=== PATIENT | female | born 1965 | race African-American/Black ===

== ENCOUNTER 2016-05-31 | Inpatient (IN) | payer OTHER ==
[~2016-05-31] VITALS: Ht 170.2 cm; Wt 78.0 kg
[~2016-05-31] MED LIST: ACET650S26 GT; ALBU2.5V13 IH; ASPI81TA2 GT; BACL10TA GT; DEXT15DR EACHEYE; IPRA0.2S9 IH; LACT-209 GT; LEVE100S GT; MIDO10TA GT; MULT1TAB11 GT; OMEG1600 GT; OMEP40CA37 GT; TOBR5DRO2 EACHEYE
--- NOTE | 2016-06-02 08:30 | NUR ---
Please see resident's previous account [id number] for all assessments and nurses notes. Originally admitted on 11/21/15.
[2016-06-02 10:00] VITALS: BP 108/60
--- NOTE | 2016-06-02 10:00 | NUR ---
Pt seen by Dr. Macario. Notified Dr. Macario that pt was started on KCl 40meq daily d/t K level on 05/29/16 was 3.2. Order obtained for repeat BMP today. Order noted and carried out.
--- NOTE | 2016-06-02 11:06 | NUR ---
Please see resident's previous account [id number] for Social Service assessments, evaluations and notes.
[2016-06-02 13:29] LABS: CALCIUM, SERUM 9.8 mg/dL (8.5-10.1); CREATININE 0.4 mg/dL (0.6-1.3); POTASSIUM 4.2 mmol/L (3.5-5.1)
[2016-06-02 20:26] VITALS: BP 98/55
[2016-06-03 07:43] VITALS: BP 90/52
--- NOTE | 2016-06-03 10:47 | NUR ---
Social Service Section of [facility] completed (2nd quarter). Resident is non communicative but opens her eyes but cannot track. Sister Judith and mother Sabrina are involved in her care. Sister visits frequently.
[2016-06-03 19:58] VITALS: BP 133/81
[2016-06-04 07:40] VITALS: BP 83/47
--- NOTE | 2016-06-04 20:12 | NUR ---
Pt seen by Coby Pabon with new order for BMP on Wednesday06/08/16,carried out.
[2016-06-04 20:35] VITALS: BP 101/67
[2016-06-05 07:44] VITALS: BP 142/58
--- NOTE | 2016-06-05 08:20 | NUR ---
Seen and examined by Dr. Nichole Dugan no new order given at this time.
[2016-06-05 19:59] VITALS: BP 100/68
[2016-06-06 07:49] VITALS: BP 123/63
[2016-06-06 19:52] VITALS: BP 104/60
[2016-06-07 07:41] VITALS: BP 106/56
[2016-06-07 20:02] VITALS: BP 108/68
[2016-06-08 07:33] VITALS: BP 115/87
[2016-06-08 07:33] LABS: CALCIUM, SERUM 9.4 mg/dL (8.5-10.1); CREATININE 0.5 mg/dL (0.6-1.3)
--- NOTE | 2016-06-08 09:45 | NUR ---
Seen by Dr. Dugan. Relayed BMP result to her. No new order.
[2016-06-08 20:39] VITALS: BP 101/62
[2016-06-09 07:45] VITALS: BP 108/53
--- NOTE | 2016-06-09 13:50 | NUR ---
Pt was noted with bilateral inguinal redness. Pt's sister at bedside and requested for Calamine lotion to be applied to the area. Received order from Dr. Macario to apply Calamine lotion.
--- NOTE | 2016-06-09 15:00 | NUR ---
MURIEL Sweeney reported that pt's sister placed a hand splint on the pt when she visited earlier. Left hand was noted with blanchable redness because of the splint. Will endorse to remind sister not to place the hand splint when she visits.
[2016-06-09 20:15] VITALS: BP 93/70
[2016-06-10 07:45] VITALS: BP_SYST 130; BP_DIAS 71; BP_DIAS 96
--- NOTE | 2016-06-10 08:00 | NUR ---
Notified Dr. Alfaro regarding elevated HR 140-152, BP 129/96, 97%, RR 18, P97, T 98.8, awaiting for MD to call back for orders.
--- NOTE | 2016-06-10 08:50 | NUR ---
Received new order to do EKG. RT notified of new order.
--- NOTE | 2016-06-10 09:32 | NUR ---
Reported result of EKG to Dr. Alfaro, sinus tachycardia otherwise normal ECG, rate 106.
--- NOTE | 2016-06-10 10:30 | NUR ---
Received an order from Dr. Alfaro to give 2 L of NS at 100 cc/hr. All orders noted and carried out. IV heplock inserted in the L FA G22, with good blood return. Patient tolerated well.
--- NOTE | 2016-06-10 14:00 | NUR ---
Seen and examined by Coby Pabon NP, no new order given. Notified that resident currently on IVF due to episode of tachycardia. Resident's sister visited earlier today notified of the new order and also the redness in the patient's L hand due to splint that sister applied yesterday. But according to her she noted the redness prior to applying the splint. Redness subsiding.
[2016-06-10 19:46] VITALS: BP 126/77
--- NOTE | 2016-06-11 06:34 | NUR ---
Pt still on IV hydration of NS 100cc/hr,no episodes of tachycardia.
[2016-06-11 07:30] VITALS: BP 109/59
[2016-06-11 19:53] VITALS: BP 138/80
[2016-06-12 07:39] VITALS: BP 98/57
[2016-06-12 19:54] VITALS: BP 128/95
[2016-06-13 08:00] VITALS: BP 101/58
[2016-06-13 19:59] VITALS: BP 103/66
[2016-06-14 08:10] VITALS: BP 96/58
[2016-06-14 19:55] VITALS: BP 105/76
[2016-06-15 08:01] VITALS: BP 100/64
[2016-06-15 19:43] VITALS: BP 99/65
[2016-06-16 08:06] VITALS: BP 97/57
[2016-06-16 19:37] VITALS: BP 120/67
[2016-06-17 07:48] VITALS: BP 121/84
[2016-06-17 20:08] VITALS: BP 118/57
[2016-06-18 07:38] VITALS: BP 106/69
--- NOTE | 2016-06-18 14:42 | NUR ---
Seen and examined by Coby Pabon NP, new order given to check BMP level on Wednesday06/22/16 to check K+. Orders noted and carried out.
[2016-06-18 20:00] VITALS: BP 113/74
[2016-06-19 07:57] VITALS: BP 89/46
--- NOTE | 2016-06-19 11:54 | NUR ---
Received a call from resident's sister Judith informing this nurse that she is not able to attend IDT meeting today due to the weather condition. She wanted to asked if there is something that the doctor can give like "antidiuretic" for patient's edema. This was mentioned with attending MD in the past but since B/P is on the low side, it is not advisable. It was suggested to Judith that we will call her on the phone and she ask Dr. Macario regarding her concern.
--- NOTE | 2016-06-19 14:10 | NUR ---
INTERDISCIPLINARY PLAN OF CARE CONFERENCE was held today. Sister Judith attended by telephone. New orders were reviewed. Sister Judith asked Dr. Macario whether there was any medication for resident's edema. He stated that it is not advisable as resident has low BP and a high heart rate that could worsen if medication is given. understood concerns. manager financial systems will also see what brace will be approved by the department.
[2016-06-19 19:41] VITALS: BP 103/70
[2016-06-20 07:57] VITALS: BP 115/74
[2016-06-20 20:00] VITALS: BP 100/62
[2016-06-21 07:47] VITALS: BP 111/75
[2016-06-21 19:54] VITALS: BP 104/72
[2016-06-22 07:40] VITALS: BP 94/64
[2016-06-22 07:44] LABS: CALCIUM, SERUM 10.1 mg/dL (8.5-10.1); CREATININE 0.4 mg/dL (0.6-1.3); POTASSIUM 4.2 mmol/L (3.5-5.1)
--- NOTE | 2016-06-22 09:50 | NUR ---
Seen and examined by Dr. Nichole Dugan, and made aware of BMP 4.2, currently on KCL 40 meq daily, with new order to decrease KCL to 20meq daily with repeat BMP on Wednesday06/29/16. All orders noted and carried out.
--- NOTE | 2016-06-22 10:33 | NUR ---
Seen and examined by Dr. Macario, NNO given.
[2016-06-22 19:45] VITALS: BP 99/65
[2016-06-23 07:55] VITALS: BP 105/67
--- NOTE | 2016-06-23 11:15 | NUR ---
Pt's bilateral groin redness noted with excoriation. Perineal area and bilateral underbreasts noted with redness. Received order to apply Z-guard cream to bilateral groin and perineal area, zinc oxide to bilateral underbreasts.
[2016-06-23 20:40] VITALS: BP 115/76
[2016-06-24 08:04] VITALS: BP 102/51
[2016-06-24 19:47] VITALS: BP 100/73
[2016-06-25 07:45] VITALS: BP 103/64
--- NOTE | 2016-06-25 15:45 | NUR ---
RT MONHTLY TRACH CHANGE DONE WITH NEW SHILEY #6 XLT DISTAL TRACH. TRACH CHANGE DONE WITH NO RESPIRATORY COMPLICATIONS NOTED. BILATERAL BREATH SOUNDS ON AUSCULTATION. RESPIRATIONS EVEN AND UNLABORED. NO REDNESS OR BLEEDING AT TRACH SITE. SUCTIONED SMALL AMOUNTS OF THICK, YELLOW SECRETIONS. TRACH SECURE AND AIRWAY PATENT. NO RESPIRATORY DISTRESS NOTED AT THIS TIME. AMBU BAG AND SPARE TRACH TUBE AT BEDSIDE. RN ROLL TABLE OPERATOR NOTIFIED AND AWARE. WILL CONTINUE TO MONITOR FOR ANY CHANGE OF CONDITION.
--- NOTE | 2016-06-25 16:03 | NUR ---
Seen and examined by Coby Pabon, BOTTLE MACHINE OPERATOR, NNO given.
[2016-06-25 19:58] VITALS: BP 129/78
[2016-06-26 07:44] VITALS: BP 120/72
--- NOTE | 2016-06-26 17:00 | NUR ---
Resident up in the wheelchair in the room for 2-3 hours, well tolerated. Transfer via Donal lift with 2 person assist. Addendum: 06/26/16 at 1801 by BRIDGETT MORIN RN Sister Tonya visited earlier today and gave her an update of most recent orders, lab result.
[2016-06-26 20:08] VITALS: BP 122/88
[2016-06-27 07:57] VITALS: BP 104/66
[2016-06-27 09:40] VITALS: BP 100/64
--- NOTE | 2016-06-27 18:30 | NUR ---
Left a message to Tonya regarding noted redness in the patient's R thumb which is consistent with the splint that was on her hand yesterday. MD notified and treatment initiated.
[2016-06-27 19:52] VITALS: BP 120/84
[2016-06-28 08:04] VITALS: BP 101/59
[2016-06-28 20:10] VITALS: BP 103/68
[2016-06-29 07:31] LABS: CALCIUM, SERUM 10.3 mg/dL (8.5-10.1); CREATININE 0.5 mg/dL (0.6-1.3); POTASSIUM 4.7 mmol/L (3.5-5.1)
[2016-06-29 07:41] VITALS: BP 99/56
--- NOTE | 2016-06-29 10:30 | NUR ---
Seen by Dr. Macario. He saw pt's Chem 7 result. K 4.7. He ordered to DC Potassium chloride and do Chem 7 again on 07/02/16.
[2016-06-29 19:53] VITALS: BP 121/60
--- NOTE | 2016-06-30 07:45 | NUR ---
RN OPENING RECEIVED PT STABLE NON VERBAL. FLACC 0 NO S/S DIFFICULTY BREATHING OR SOB. PT SETTINGS APPROPRIATE AND LEFT WITH CALL LIGHT FOR PATIENT TO HEAR, BED LOWERED AND LOCKED, RAILS UPX3 FOR SAFETY WITH BED ALARM ON. WILL MONITOR PRN
[2016-06-30 07:46] VITALS: BP_SYST 106; BP_SYST 82; BP_DIAS 46; BP_DIAS 72
--- NOTE | 2016-06-30 08:00 | NUR ---
RN NOTES PT BUTTOCKS FOLDS AND EL AREA ARE VERY RED AND EXCORIATED. WILL APPLY Z GUARD/WOUND CARE LIBERALLY PRN AND REPOSITION Q2H AND OFFLOAD. KEEPING SKIN CLEAN AND DRY
[2016-06-30 10:31] VITALS: BP 106/62
--- NOTE | 2016-06-30 11:00 | NUR ---
RN NOTES STOPPED FEEDING AT 11AM PER WRITTEN TIME ON FEEDING. WILL RESUME IN 4 HOURS
--- NOTE | 2016-06-30 15:00 | NUR ---
RN NOTES RESUMED FEEDING ORDERED, PT STABLE
--- NOTE | 2016-06-30 16:00 | NUR ---
Resident was seen by Dr. Gómez (floor tiling professional).
--- NOTE | 2016-06-30 19:11 | NUR ---
RN CLOSING PT STABLE, G TUBE CARE, TRACH CARE COMPLETED PRN. SUCTIONED PRN, TURNED Q2H, SKIN CARE PRN SOILING. NO CHANGES PATIENT STABLE. FEEDING RUNNING ORDERED AND VENT SETTINGS ORDERED
[2016-06-30 19:37] VITALS: BP 106/70
[2016-07-01 07:46] VITALS: BP 81/52
[2016-07-01 10:30] VITALS: BP 105/69
[2016-07-01 19:28] VITALS: BP 100/58
[2016-07-02 07:41] VITALS: BP 107/59
[2016-07-02 08:02] LABS: CREATININE 0.4 mg/dL (0.6-1.3); POTASSIUM 4.3 mmol/L (3.5-5.1)
[2016-07-02 22:18] VITALS: BP 98/64
[2016-07-03 07:56] VITALS: BP 110/71
[2016-07-03 20:43] VITALS: BP 129/85
[2016-07-04 08:13] VITALS: BP 92/60
[2016-07-04 19:54] VITALS: BP 102/55
[2016-07-04 21:45] VITALS: BP 99/59
[2016-07-05 08:11] VITALS: BP 87/45
[2016-07-05 20:00] VITALS: BP 120/70
--- NOTE | 2016-07-06 11:00 | NUR ---
Seen by Dr. Macario. Received order to do BMP on 07/13/16.
--- NOTE | 2016-07-06 18:52 | NUR ---
Dulcolax suppository given per rectum as ordered for constipation. result awaiting and endorsed to head custodian.
[2016-07-06 19:59] VITALS: BP 95/60
[2016-07-07 07:55] VITALS: BP 104/68
[2016-07-07 19:55] VITALS: BP 103/58
[2016-07-08 08:02] VITALS: BP 109/61
--- NOTE | 2016-07-08 12:29 | NUR ---
Resident's sister Tonya at bedside, she applied generic splints on both hands., it was mentioned to sister that it causes skin problems because it is not fit to her. She insisted that is it not tight at all. She also mentioned that resident is puffy. This nurse did not think that resident is puffy and reminded her that it was already discussed with attending MD her request for diuretics, but she doesn't think it is needed. During the last IDT she brought the same concern with Dr. Renaldo MD with same response, "no" to diuretics. She later on verbalized "yes, I understand". However, her L eye noted with slight redness, on artificial tears. Will notify MD if they want to add ATB eye drops.
--- NOTE | 2016-07-08 16:15 | NUR ---
Dr. Nichole Dugan seen and examined resident, reported L eye redness with new order for Gentamicin eye drops. MD also made aware that sister is saying that patient is puffy, Dr. Dugan responded " No, she is not puffy! You should have seen her when she was in the unit, she is OK". No other order except for the eye drops.
[2016-07-08 19:51] VITALS: BP 98/64
[2016-07-09 08:53] VITALS: BP 96/55
[2016-07-09 20:08] VITALS: BP 98/50
[2016-07-10 23:40] VITALS: BP 92/56
[2016-07-11 07:46] VITALS: BP 92/53
--- NOTE | 2016-07-11 16:20 | NUR ---
Resident noted with open skin in the L side of the neck. New treatment received. Resident's mother visited and made aware of the noted open skin in her left neck. Appreciated the care being provided " I know she is in good hands here". Order noted an carried out.
[2016-07-11 21:33] VITALS: BP 96/52
[2016-07-12 07:45] VITALS: BP 103/58
[2016-07-12 19:43] VITALS: BP 108/67
[2016-07-13 08:10] VITALS: BP 101/59
[2016-07-13 08:48] LABS: CALCIUM, SERUM 10.5 mg/dL (8.5-10.1); CREATININE 0.5 mg/dL (0.6-1.3); POTASSIUM 3.9 mmol/L (3.5-5.1)
[2016-07-13 19:47] VITALS: BP 101/60
--- NOTE | 2016-07-14 07:30 | NUR ---
RN NOTES PT IN BED, RESTING, NO SIGN OF PAIN, NOT IN DISTRESS, RESPIRATIONS EVEN AND NOT LABORED, TURNED AND REPOSITIONED FOR COMFORT.
[2016-07-14 07:45] VITALS: BP 140/76
--- NOTE | 2016-07-14 16:15 | NUR ---
Pt was seen by Dr. Garzon for routine podiatry consult. He trimmed pt's toenails. Pt tolerated well.
--- NOTE | 2016-07-14 17:17 | NUR ---
Received order from Dr. Garzon to apply triple antibiotic ointment on the superficial cut on the pt's left foot 2nd toe and on the left foot medial malleolus.
--- NOTE | 2016-07-14 17:46 | NUR ---
RN NOTES PT IN BED, ASLEEP, EASY TO AROUSE, NO SIGN OF PAIN OR DISTRESS, PM CARE RENDERED, PM MEDS GIVEN ORDERED, TURNED AND REPOSITIONED Q2 HRS, TOLERATING GT FEEDING WELL, KEPT BOTH HEELS OFFLOADED, ALL NEEDS ATTENDED.
[2016-07-14 22:45] VITALS: BP 103/66
[2016-07-15 07:46] VITALS: BP 118/67
[2016-07-15 19:56] VITALS: BP 98/59
[2016-07-16 07:42] VITALS: BP 95/63
--- NOTE | 2016-07-16 16:10 | NUR ---
Seen and examined by Coby Pabon NP no new order given. Seen the photo of bilateral heel with brownish color consistent with the shape of the ankle splint that family is putting on the patient. Sister commented "we will not put the splints for now". Informed her that if the splints is not fitting it will cause more damage than benefit . She verbalized understanding. She is very happy though with the UE splints being applied by RNA which therapist ordered especially for the patient.
[2016-07-16 19:36] VITALS: BP 95/60
[2016-07-17 07:28] VITALS: BP 94/43
[2016-07-17 19:54] VITALS: BP 101/72
[2016-07-18 07:50] VITALS: BP 103/62
[2016-07-18 19:58] VITALS: BP 100/56
[2016-07-19 07:55] VITALS: BP 100/59
[2016-07-19 19:38] VITALS: BP 88/55
[2016-07-20 08:13] VITALS: BP 90/57
--- NOTE | 2016-07-20 18:25 | NUR ---
Seen by STENOCAPTIONER Coby Pabon. Notified her that Gentamicin eye drops has been completed but pt still has some redness in the left eye. She said to just continue lubricating the eye. No new order.
[2016-07-20 19:43] VITALS: BP 98/62
[2016-07-21 07:35] VITALS: BP 103/59
--- NOTE | 2016-07-21 09:55 | NUR ---
Seen by Dr Macario with no new order.
--- NOTE | 2016-07-21 10:00 | NUR ---
Dr Macario seen pt bilateral lower extremities redness with order Cleanse with NS,pat dry,apply Hydrocortisone 1% Q shift x 14 days then re-eval order noted and carried out.Resident and mother Sabrina made aware.
[2016-07-21 19:59] VITALS: BP 99/68
[2016-07-22 07:39] VITALS: BP 101/52
--- NOTE | 2016-07-22 09:22 | NUR ---
Seen and examined by Dr Nichole Dugan, information technology consultant no new order given. She stated that her eyes looks much better although still with some redness.
[2016-07-22 20:30] VITALS: BP 101/60
[2016-07-23 07:44] VITALS: BP 104/60
--- NOTE | 2016-07-23 13:30 | NUR ---
Seen by Coby Pabon NP with no new order.
[2016-07-23 19:47] VITALS: BP 105/53
[2016-07-24 07:56] VITALS: BP 100/58
--- NOTE | 2016-07-24 13:47 | NUR ---
IDT meeting held, sister Tonya unable to attend. Reviewed medications, treatments and labs with new order to do repeat BMP on Wednesday to check K+ level. All orders noted and carried out.
[2016-07-24 19:41] VITALS: BP 113/72
[2016-07-25 07:58] VITALS: BP 99/58
[2016-07-25 19:47] VITALS: BP 107/71
[2016-07-26 08:12] VITALS: BP 98/58
[2016-07-26 20:09] VITALS: BP 95/57
[2016-07-27 07:41] LABS: CALCIUM, SERUM 10.5 mg/dL (8.5-10.1); CREATININE 0.4 mg/dL (0.6-1.3); POTASSIUM 4.2 mmol/L (3.5-5.1)
[2016-07-27 07:42] VITALS: BP 85/49
--- NOTE | 2016-07-27 10:11 | NUR ---
BMP result seen by Dr. Dugan. No new order.
[2016-07-27 19:56] VITALS: BP 109/70
[2016-07-28 08:03] VITALS: BP 106/59
--- NOTE | 2016-07-28 18:41 | NUR ---
Novasource Formula not hanged at this time @1833. Clicked by mistake intended for another pt.
[2016-07-28 20:05] VITALS: BP 105/68
[2016-07-29 09:04] VITALS: BP 106/67
--- NOTE | 2016-07-29 17:30 | NUR ---
Seen by Coby Pabon NP with no new order.
[2016-07-29 19:48] VITALS: BP 111/55
[2016-07-30 07:38] VITALS: BP 102/72
[2016-07-30 19:54] VITALS: BP 101/61
[2016-07-31 08:24] VITALS: BP 109/66
[2016-07-31 19:57] VITALS: BP 101/67
[2016-08-01 08:00] VITALS: BP 96/58
[2016-08-01 20:01] VITALS: BP 100/62
[2016-08-02 10:19] VITALS: BP 107/62
[2016-08-02 19:57] VITALS: BP 99/67
[2016-08-03 07:15] LABS: BASOPHILS % (AUTO) 0.4 % (0.0-2.0); EOSINOPHILS # (AUTO) 0.1 /CMM (0.0-0.7); EOSINOPHILS % (AUTO) 1.4 % (0.0-6.0); HEMATOCRIT 34 % (33-45); LYMPHOCYTES # (AUTO) 1.9 /CMM (0.8-4.8); LYMPHOCYTES % (AUTO) 41.8 % (20.0-44.0); MEAN CORPUSCULAR HEMOGLOBIN 27 PG (26.0-33.0); MEAN CORPUSCULAR HGB CONC 32 g/dl (31.0-36.0); MEAN CORPUSCULAR VOLUME 84 fL (82-100); MONOCYTES # (AUTO) 0.5 /CMM (0.1-1.30); MONOCYTES % (AUTO) 9.9 % (2.0-12.0); NEUTROPHILS # (AUTO) 2.1 /CMM (1.8-8.9); NEUTROPHILS % (AUTO) 46.5 % (43.0-81.0); RDW COEFFICIENT OF VARIATION 16.5 (11.5-15.0); RED BLOOD CELL COUNT(AUTO) 4.09 MIL/uL (4.0-5.2); WHITE BLOOD COUNT (AUTO) 4.6 K/uL (4.3-11.0)
[2016-08-03 07:26] LABS: ALBUMIN 2.8 g/dL (3.4-5.0); BILIRUBIN,TOTAL 0.2 mg/dL (0.2-1.0); CALCIUM, SERUM 10.4 mg/dL (8.5-10.1); CREATININE 0.4 mg/dL (0.6-1.3); PHOSPHORUS 3.2 mg/dL (2.5-4.9); POTASSIUM 4.2 mmol/L (3.5-5.1); TOTAL PROTEIN, SERUM 8.4 g/dL (6.4-8.2)
[2016-08-03 08:00] VITALS: BP 98/54
[2016-08-03 09:21] LABS: EOSINOPHILS % (MANUAL) 1 % (0-4); LYMPHOCYTES % (MANUAL) 26 % (16-48); MONOCYTES % (MANUAL) 11 % (0-11.0); NEUTROPHILS % (MANUAL) 62 (42-76); PLATELET COUNT (AUTO) 129 /CMM (150-450)
--- NOTE | 2016-08-03 18:15 | NUR ---
Seen by NIKI Ashford. She said Dr. Dugan asked her to see the pt's eye redness. NIKI Ashford looked at pt's left eye redness. No drainage or crust noted. NIKI Ashford said she will order something for it.
[2016-08-03 20:01] VITALS: BP 107/63
[2016-08-04 07:45] VITALS: BP 108/67
--- NOTE | 2016-08-04 09:30 | NUR ---
Seen by Dr Macario with no new order.
[2016-08-04 19:50] VITALS: BP 102/68
[2016-08-05 07:59] VITALS: BP 96/62
[2016-08-05 19:54] VITALS: BP 98/59
--- NOTE | 2016-08-06 18:03 | NUR ---
RN NOTES PT RESTING COMFORTABLY. NOT IN ANY DISTRESS. VENT DEPENDENT AND SETTINGS ORDERED. BREATHING EVEN AND UNLABORED. NO SIGN OF PAIN OR FACIAL GRIMACING. GTF ONGOING NOVASOURCE 30 ML/HR, TOLERATING WELL, O RESIDUAL. AM/PM CARE RENDERED AND PRN. PRESCRIBED WOUND TREATMENT DONE. TURNED AND REPOSITIONED. ALL DUE MEDS ADMINISTERED DURING THE SHIFT. ALL NEEDS MET. SAFETY MEASURES, SUCTION INTERMITTENTLY. WILL ENDORSE TO NEXT SHIFT FOR KATRIN.
[2016-08-06 19:51] VITALS: BP 99/61
[2016-08-07 07:48] VITALS: BP 94/60
--- NOTE | 2016-08-07 12:45 | NUR ---
Resident's sister visited she is asking if Ciloxan has a stop date, she is concern that it is not helping her eyes as it is still red. Inform her that it has only been 3 days and will notify MD on Wednesday of if she comes today or in the weekend if medication is ineffective.
[2016-08-07 19:50] VITALS: BP 97/60
[2016-08-08 07:28] VITALS: BP 96/68
[2016-08-08 21:23] VITALS: BP 92/59
[2016-08-09 08:00] VITALS: BP 113/53
[2016-08-09 20:00] VITALS: BP 98/58
[2016-08-10 08:03] VITALS: BP 79/46
[2016-08-10 09:14] VITALS: BP 98/70
[2016-08-10 20:04] VITALS: BP 98/61
[2016-08-11 08:10] VITALS: BP 92/52
[2016-08-11 19:37] VITALS: BP 96/61
--- NOTE | 2016-08-12 01:00 | NUR ---
RN NOTES Noted pt with right knee swelling, warm to touch. Pt does not appear to have pain at this time, facial grimacing noted when area of swelling is touched or moved. Noted with patchy reddened skin surrounding knee. Handled pt with care when providing care and repositioning. Will continue to monitor and endorse to following shift to notify MD and responsible constitution party.
[2016-08-12 07:33] VITALS: BP 93/56
--- NOTE | 2016-08-12 11:05 | NUR ---
notified Dr. Espinoza regarding right knee swollen. He gave an order for X-ray of Rt knee and he also said he will notify Dr. Alfaro.
--- NOTE | 2016-08-12 17:15 | NUR ---
X-ray was done and was found marked osteoarthtitic changes and marked impacted fracture deformity involving the distal femur. Relayed results to Dr. Dugan covering for Dr. Alfaro and she gave an order to do CTscan of right knee. NIKI Mckeon for ortho called and said Dr. Dugan left a message for consult and will be in the unit to see the patient. Sister Tonya aware and asked her if the patient had problem in the past. She said no there was no problem that she know but she did had left foot fracture and metal was placed on left foot long time before. Will Continue to monitor.
[2016-08-12 19:34] VITALS: BP 99/72
--- NOTE | 2016-08-13 06:30 | NUR ---
PT SLEPT GOOD DURING SHIFT WITH NO SIGNS AND SYMPTOMS OF PAIN NOTED, RIGHT KNEE STILL SWOLLEN. RENDERED PT'S CARE BY 2 NURSING STAFF AT ALL TIMES FOR SAFETY MEASURES, PRECAUTIONS TO R. KNEE STRICTLY OBSERVED, WITH MINIMAL MOVEMENT AND OFF PRESSURE TO AFFECTED KNEE AT ALL TIMES.
--- NOTE | 2016-08-13 06:53 | NUR ---
RIGHT KNEE IMMOBILIZER APPLIED ORDERED D/T FX.
[2016-08-13 07:49] VITALS: BP 83/46
--- NOTE | 2016-08-13 10:10 | NUR ---
Dr. Dugan saw the result of the CT scan of right knee. She said it is an old fracture. No new order.
[2016-08-13 20:36] VITALS: BP 99/59
--- NOTE | 2016-08-14 06:40 | NUR ---
Tolerated care, no s/sx of discomfort noted, q2hr circulation check done to r. knee with knee immobilizer. Prn Dulcolax to rectal given for constipation, effective x 1 bm, kept clean and dry. Safety measures observed at all times, 2 nursing staff at all times rendering pt's care, for safety precautions. All needs attended.
[2016-08-14 07:57] VITALS: BP 90/64
--- NOTE | 2016-08-14 10:57 | NUR ---
Obtain an order from Dr. Kvng Alfaro to have daily prune juice via GT for management of constipation. Orders noted and carried out.
[2016-08-14 21:35] VITALS: BP 97/56
[2016-08-15 07:49] VITALS: BP 108/66
--- NOTE | 2016-08-15 16:09 | NUR ---
Notified NIKI Ashford ID of the R and L eye culture result which is + for MRSA. She stated that Bonnie will be in to give order. Contact isolation observed.
--- NOTE | 2016-08-15 16:25 | NUR ---
Notified resident's sister Judith regarding positive culture MRSA of both eyes. Inform her that she will be on isolation. She was made aware of the order given by Dr. Alfaro regarding prune juice daily. At this time awaiting for MD to give treatment order. Family appreciated the call.
--- NOTE | 2016-08-15 19:00 | NUR ---
Spoke with [facility] pharmacist informing us that they are not sure whether Bacitracin will be covered by patient's insurance or not. Informed [facility] pharmacy and will notify this nurse if they can send the medication. Endorsed to incoming shift.
[2016-08-15 21:36] VITALS: BP 96/57
[2016-08-16 08:07] VITALS: BP 101/60
--- NOTE | 2016-08-16 17:58 | NUR ---
Seen by LORRAINE Jama with order for ophthalmology consult d/t left eye redness. Addendum: 08/16/16 at [address]ER RN SKEET OPERATOR placed new order for Polysporin eye oint. DC Bacitracin. Order noted and carried out. Pt's sister Judith notified.
[2016-08-16 20:21] VITALS: BP 100/66
[2016-08-17 07:53] VITALS: BP 111/61
--- NOTE | 2016-08-17 18:54 | NUR ---
Received order to DC artificial tears ophthalmic drops QID and Refresh lacrilube ointment q HS since pt is on antibiotic eye drops.
[2016-08-17 20:00] VITALS: BP 90/53
[2016-08-18 07:43] VITALS: BP 100/56
--- NOTE | 2016-08-18 10:00 | NUR ---
Notified social worker clinical Michelle that pt has an order for ophthalmology consult due to MRSA in the eyes.
--- NOTE | 2016-08-18 10:36 | NUR ---
Informed by charge nurse that resident is in need of an ophthalmology consult due to left eye redness. Spoke to Cece at the office of Dr. Hayden ([id number] [place] [address] . She stated that she has to check with Dr. Hayden to see if she can come to the hospital in order to do the consult but is most likely available on Wednesday. Faxed referral to her office. LIZANDRO will follow up. Addendum: 08/18/16 at 1135 by TOO BONE Cece called back and stated that Dr. Hayden is 40 miles away and cannot come. Clarified with Cece if Dr. Hayden is able to come at any other time. Cece stated that she was not sure and will give SW number to Dr. Hayden so that she can call her. Cece also stated that Dr. Mayes (who is also a part of the practice and has privileges at the [facility]) recently got shoulder surgery and is not currently working. LIZANDRO will await call from Dr. Hayden.
--- NOTE | 2016-08-18 11:40 | NUR ---
Called Maida at medical staffing (ext [phone]) and informed her that both ophthalmologists most likely cannot come to see resident for consult. Asked for alternative options and notified her that for [facility], Dr. Gates is the co founder & ceo that does the consults. She said SW can either send out patient to an appt outside of the hospital or transfer to [facility] to do the consult. Informed deputy director of nursing Nida Lamas and emailed YOJANA Mccullough regarding issue. SW will follow up.
[2016-08-18 19:36] VITALS: BP 89/64
[2016-08-19 07:51] VITALS: BP 81/51
--- NOTE | 2016-08-19 08:15 | NUR ---
SW spoke to CNO regarding purifying plant operator consultation. Informed him of the issue (no contracted doctor's can come and see patient). CNO reviewed the resident's chart with subacute charge nurse and resident already being treated with medication. CNO to follow up with infection control and will inform charge nurse if consultation is needed.
--- NOTE | 2016-08-19 13:20 | NUR ---
Notified LORRAINE Ashford regarding pharmacy recommendations that Polytrim is effective in treating MRSA of the eye than current treatment of Polysporin ointment. She agreed with pharmacy recommendations. She also ordered to cancel ophthalmology consult for now and will evaluate after therapy if ophthalmology consult is still needed. SSD notified. Orders noted and carried out.
--- NOTE | 2016-08-19 18:58 | NUR ---
Makeda, ID seen resident stated that Vancomycin eye drop is better for MRSA however it is not available in [facility] formulary. Inquired from [facility] pharmacy and Vanco eye drop is available. Makeda, changed eye drop order to Vancomycin eye drops. Faxed order to pharmacy and will notify staff if covered by patient's insurance or not. Endorsed.
[2016-08-19 19:34] VITALS: BP 94/69
--- NOTE | 2016-08-20 06:29 | NUR ---
Pt ordered for Vancomycin eye drops d/c not covered by insurance per Yan Zhao.Polytrim eyes drops was covered by insurance and will start today for MRSA both eyes.
[2016-08-20 07:49] VITALS: BP 99/52
[2016-08-20 21:29] VITALS: BP 98/57
--- NOTE | 2016-08-21 10:59 | NUR ---
WOUND CARE CONSULT: PT SEEN FOR LEFT FLANK SKIN FOLD EXCORIATION. RECOMMENDATIONS MADE FOR Z GUARD TO BE APPLIED TO AREA EVERY SHIFT. DISCUSSED WITH NURSING STAFF. ALL SKIN PROTECTION MEASURES IN PLACE. WILL SEE PRN. IN AGREEMENT WITH PLAN OF CARE.
--- NOTE | 2016-08-21 13:43 | NUR ---
Noted with skin discoloration in the L arm that is consistent with the hand splints. Will continue to monitor. MD Macario aware NNO given.
--- NOTE | 2016-08-21 16:04 | NUR ---
INTERDISCIPLINARY PLAN OF CARE CONFERENCE was held today. Sister Judith attended in person. New orders were reviewed. Sister Judith stated to Dr. Macario that she was interested in seeing if water pill can be given to resident for her fluid retention. Dr. Macario stated that it is not advisable. Judith was okay with Dr. Macario's response. Sister would also like resident to be up in the wheelchair and feels that it is not being used. manager video to follow up with staff to make sure resident is being placed into the wheelchair. Judith also addressed her concerns with OT and the brace that is being used. OT went to the room with resident's sister in order to address her concerns and clinical nursing professor to follow up. No new orders were given by Dr. Macario.
[2016-08-21 20:18] VITALS: BP 96/61
[2016-08-22] VITALS (8 sets, daily range): BP systolic 84–101; BP diastolic 40–61
[2016-08-23 00:40] VITALS: BP 94/52
[2016-08-23 00:41] VITALS: BP 94/52
[2016-08-23 06:58] VITALS: BP 89/53
[2016-08-23 07:40] VITALS: BP 90/55
[2016-08-23 20:00] VITALS: BP 139/56
[2016-08-24 07:32] VITALS: BP 126/53
--- NOTE | 2016-08-24 19:26 | NUR ---
Seen by NIKI Ashford. She looked at pt's eyes. Eyes are still red. No new order.
[2016-08-24 19:36] VITALS: BP 101/61
[2016-08-25 08:03] VITALS: BP 90/52
--- NOTE | 2016-08-25 09:00 | NUR ---
Seen and examined by Dr Macario with no new order.
[2016-08-25 19:59] VITALS: BP 96/60
[2016-08-26 07:41] VITALS: BP 125/70
[2016-08-26 21:19] VITALS: BP 91/55
[2016-08-27 06:58] LABS: BASOPHILS % (AUTO) 0.7 % (0.0-2.0); EOSINOPHILS # (AUTO) 0.2 /CMM (0.0-0.7); EOSINOPHILS % (AUTO) 3.4 % (0.0-6.0); HEMATOCRIT 30 % (33-45); HEMOGLOBIN 9.7 g/dL (11.5-14.8); LYMPHOCYTES # (AUTO) 1.6 /CMM (0.8-4.8); LYMPHOCYTES % (AUTO) 27.7 % (20.0-44.0); MEAN CORPUSCULAR HEMOGLOBIN 27 PG (26.0-33.0); MEAN CORPUSCULAR HGB CONC 33 g/dl (31.0-36.0); MEAN CORPUSCULAR VOLUME 83 fL (82-100); MONOCYTES # (AUTO) 0.3 /CMM (0.1-1.30); MONOCYTES % (AUTO) 5.2 % (2.0-12.0); NEUTROPHILS # (AUTO) 3.5 /CMM (1.8-8.9); PLATELET COUNT (AUTO) 180 /CMM (150-450); RDW COEFFICIENT OF VARIATION 17.6 (11.5-15.0); RED BLOOD CELL COUNT(AUTO) 3.55 MIL/uL (4.0-5.2); WHITE BLOOD COUNT (AUTO) 5.6 K/uL (4.3-11.0)
[2016-08-27 07:32] VITALS: BP 104/76
[2016-08-27 08:40] LABS: ALBUMIN 2.5 g/dL (3.4-5.0); BILIRUBIN,TOTAL 0.1 mg/dL (0.2-1.0); CALCIUM, SERUM 10.5 mg/dL (8.5-10.1); CREATININE 0.4 mg/dL (0.6-1.3); PHOSPHORUS 4.2 mg/dL (2.5-4.9); TOTAL PROTEIN, SERUM 8.7 g/dL (6.4-8.2)
[2016-08-27 20:01] VITALS: BP 101/63
--- NOTE | 2016-08-28 05:14 | NUR ---
Pt had episodes of emesis x 2 formula like yellowish in color,check residual none,abdomen slightly distended,vented to release gas.Zofran given via GT as ordered. No BM for 2 days,PRN Dulcolax suppository given effective with medium amount of soft BM.Will continue to monitor.
[2016-08-28 07:39] VITALS: BP 122/60
[2016-08-28 19:57] VITALS: BP 100/61
[2016-08-29 08:00] VITALS: BP 101/55
--- NOTE | 2016-08-29 10:58 | NUR ---
Notified NIKI Ashford regarding stop date of Polytrim eye drops. She stated that she will reassess patient's eye this afternoon.
[2016-08-29 20:11] VITALS: BP 106/50
--- NOTE | 2016-08-29 20:40 | NUR ---
Primary nurse notice that patient's left knee is slightly swelling and more movable that before. According to the primary nurse patient's knee are usually hard and very stiff. called Dr. Alfaro telephone station repairer. Got and order from Dr. Mckenzie for xray of left knee.
[2016-08-30 08:00] VITALS: BP 104/53
--- NOTE | 2016-08-30 12:19 | NUR ---
Received x-ray of the left knee result called Dr. Angelina Calderon's office spoke to Ana she stated she will page but Dr. Sanchez is the on-call today. Awaiting call back from . Dr. Sanchez called back and relayed x-ray of the left knee result with new order of CT scan today order noted and carried out. Judith Nagel made aware of pt's condition and notified of the new order. RP was very appreciative of the call.
--- NOTE | 2016-08-30 15:49 | NUR ---
Relayed CT scan of the left knee spoke to Dr. Edwards on-call for Dr. Alfaro with order for ortho consult. FLACA Wong made aware.
[2016-08-30 19:45] VITALS: BP 96/63
[2016-08-31 08:00] VITALS: BP 109/66
[2016-08-31 08:07] LABS: *SPE A/G RATIO 0.7 (0.7-1.7); *SPE ALBUMIN 3.1 g/dL (2.9-4.4); *SPE ALPHA-1-GLOBULIN 0.6 g/dL (0.0-0.4); *SPE BETA GLOBULIN 1.4 g/dL (0.7-1.3); *SPE GLOBULIN, TOTAL 4.6 g/dL (2.2-3.9); *SPE M-SPIKE 0.2 g/dL (Not Observed); *SPE PROTEIN TOTAL 7.7 g/dL (6.0-8.5); *SPEGAMMA GLOBULIN 1.6 g/dL (0.4-1.8)
--- NOTE | 2016-08-31 10:00 | NUR ---
Dr. Dugan came to see pt. Showed her the results of the left knee x-ray and left knee CT scan. She said to have ortho see pt.
--- NOTE | 2016-08-31 12:14 | NUR ---
Called and left message to voice of EMILY Gustafson to call back subacute regarding ortho consult.
--- NOTE | 2016-08-31 13:50 | NUR ---
Dang DIAZ called back and will see patient this afternoon.
--- NOTE | 2016-08-31 14:15 | NUR ---
Dang DIAZ came and assessed patients' both lower extremities, she ordered right knee immobilizer for 3 more weeks. She is aware of x ray results and CT scan of left knee, according to her left knee fracture is chronic, no new orders at this time.
[2016-08-31 19:46] VITALS: BP 85/58
[2016-09-01 08:00] VITALS: BP 100/59
--- NOTE | 2016-09-01 10:05 | NUR ---
Seen and examined by Dr Macario with no new order
[2016-09-01 20:25] VITALS: BP 99/63
[2016-09-02 08:28] VITALS: BP 84/49
[2016-09-02 09:30] VITALS: BP 102/74
--- NOTE | 2016-09-02 13:53 | NUR ---
Resident's sister (Judith) visiting, notified her ortho saw resident on 08/31/16 with the following recommendations; to keep the right knee immobilizer for 2-3 weeks, no orthopaedic surgical intervention recommended at this time. No weight bearing on bilateral lower extremities but OK to do passive ROM. Appreciated the update given.
[2016-09-02 21:01] VITALS: BP 104/55
[2016-09-03 07:36] VITALS: BP 128/65
--- NOTE | 2016-09-03 09:52 | NUR ---
Called EMILY Valles's office to ask if Donal lift may be used when transferring pt to wheelchair. EMILY Valles saw pt on 08/31/16 and said it is fine to have pt sit up in wheelchair. Left message with Jamil. Addendum: 09/11/16 at 1125 by MIGUELANGEL REEDER RN Late entry: EMILY Valles said Donal lift may be used for transfers.
[2016-09-03 20:00] VITALS: BP 120/64
[2016-09-04 11:58] VITALS: BP 98/66
[2016-09-04 12:00] VITALS: BP 101/65
[2016-09-04 20:10] VITALS: BP 100/65
[2016-09-05 07:25] VITALS: BP 98/56
[2016-09-05 19:56] VITALS: BP 101/63
[2016-09-06 07:25] VITALS: BP 108/55
[2016-09-06 20:00] VITALS: BP_SYST 114; BP_SYST 90; BP_DIAS 59; BP_DIAS 60
--- NOTE | 2016-09-07 14:39 | NUR ---
09/07/16- for 1000: B/P rechecked as a follow-up, result B/P - 93/56, P - 64 post trendelenberg position. Then was placed on recliner chair per sister's request, arousable, non-verbal, confused, disoriented x 4. Resp even and unlabored, suctioned x 2 with copious thick secretions. Remains on O2 via trach mask per MD's order. Able to tolerate being up on recliner chair with his right lower extremity brace. No acute distress noted at this time.
--- NOTE | 2016-09-07 16:31 | NUR ---
Obtained specimen from both eyes C and S for MRSA clearance. Specimen sent to lab.
[2016-09-07 19:50] VITALS: BP 81/58
--- NOTE | 2016-09-08 11:40 | NUR ---
@ 1000 Rechecked B/P -97/55, P-74 post trendelenberg position. Am care provided by ANALYTICAL SCIENCES DIRECTOR, no acute distress noted.
[2016-09-08 12:38] VITALS: BP 87/58
[2016-09-08 19:39] VITALS: BP 96/60
[2016-09-09 07:39] VITALS: BP 131/47
[2016-09-09 20:45] VITALS: BP 104/55
[2016-09-10 07:35] VITALS: BP 95/56
--- NOTE | 2016-09-10 12:26 | NUR ---
Notified Makeda PRINCE that eye culture #1 showed slight growth of MRSA. No redness, no discharge noted on both eyes at this time. Order obtained to continue Polytrim eye gtts. Order noted and carried out. Pt's sister Judith notified. Sister upset that pt will still be on isolation and requesting to move rooms. Explained isolation protocol to sister but sister wants to talk to primary MD. Gave MD's office number to Judith per her request.
[2016-09-10 20:24] VITALS: BP 107/75
[2016-09-11 08:00] VITALS: BP 109/56
--- NOTE | 2016-09-11 18:53 | NUR ---
Followed up Polytrim eye drops from [facility] pharmacy since remaining eye drops was consumed today. According to Shabbir ([facility]), Polytrim is not available due to a back order in the market and there is no release date for it yet. Received a recommendation to change to Maxitrol eye drops. Notified NIKI Ashford and received order to give Maxitrol eye drops 1 drop to each eye q 4 hours for MRSA in both eyes.
[2016-09-11 19:35] VITALS: BP 118/57
[2016-09-12 08:18] VITALS: BP 92/62
--- NOTE | 2016-09-12 15:09 | NUR ---
Notified patient's sister Judith of new order for Maxitrol eye gtts. Judith verbalized understaning, appreciative of call.
--- NOTE | 2016-09-12 17:27 | NUR ---
Pt noted with open skin on right Achilles area. MD notified and treatment order obtained, noted and carried out. Pt's sister Judith notified.
[2016-09-12 19:20] VITALS: BP 95/55
[2016-09-12 20:07] VITALS: BP 95/55
[2016-09-13 07:43] VITALS: BP 95/53
[2016-09-13 19:58] VITALS: BP 114/74
[2016-09-14 11:07] LABS: BASOPHILS % (AUTO) 0.7 % (0.0-2.0); EOSINOPHILS # (AUTO) 0.1 /CMM (0.0-0.7); EOSINOPHILS % (AUTO) 1.8 % (0.0-6.0); HEMATOCRIT 28 % (33-45); LYMPHOCYTES # (AUTO) 1.8 /CMM (0.8-4.8); LYMPHOCYTES % (AUTO) 33.3 % (20.0-44.0); MEAN CORPUSCULAR HEMOGLOBIN 26 PG (26.0-33.0); MEAN CORPUSCULAR HGB CONC 32 g/dl (31.0-36.0); MEAN CORPUSCULAR VOLUME 83 fL (82-100); MONOCYTES # (AUTO) 0.3 /CMM (0.1-1.30); MONOCYTES % (AUTO) 5.9 % (2.0-12.0); NEUTROPHILS # (AUTO) 3.1 /CMM (1.8-8.9); NEUTROPHILS % (AUTO) 58.3 % (43.0-81.0); PLATELET COUNT (AUTO) 254 /CMM (150-450); RDW COEFFICIENT OF VARIATION 16.8 (11.5-15.0); RED BLOOD CELL COUNT(AUTO) 3.42 MIL/uL (4.0-5.2); WHITE BLOOD COUNT (AUTO) 5.3 K/uL (4.3-11.0)
[2016-09-14 11:37] LABS: LYMPHOCYTES % (MANUAL) 30 % (16-48); MONOCYTES % (MANUAL) 8 % (0-11.0); NEUTROPHILS % (MANUAL) 59 (42-76)
[2016-09-14 11:38] LABS: EOSINOPHILS % (MANUAL) 3 % (0-4)
[2016-09-14 12:09] LABS: CREATININE 0.5 mg/dL (0.6-1.3); MAGNESIUM 1.8 mg/dL (1.8-2.4); PHOSPHORUS 3.3 mg/dL (2.5-4.9); POTASSIUM 3.6 mmol/L (3.5-5.1)
[2016-09-14 20:01] VITALS: BP 103/61
[2016-09-15 08:18] VITALS: BP 88/54
[2016-09-15 19:40] VITALS: BP 98/55
[2016-09-16 08:02] VITALS: BP 87/42
[2016-09-16 19:34] VITALS: BP 98/60
[2016-09-17 07:26] VITALS: BP 124/79
--- NOTE | 2016-09-17 10:00 | NUR ---
Pt noted with left breastfold excoriation, left lower back fold excoriation and gluteal crease linear cut. MD notified and treatment initiated. Orders noted and carried out.
[2016-09-17 20:00] VITALS: BP 98/57
[2016-09-18 19:57] VITALS: BP 101/60
[2016-09-19 07:32] VITALS: BP 93/59
--- NOTE | 2016-09-19 16:42 | NUR ---
Notified sister that message was left to BURGLAR ALARM INSPECTOR Reena (ortho) yesterday that 3 weeks of application of R knee immobilizer is until 09/21. Endorsed to follow-up with BURGLAR ALARM INSPECTOR to reevaluate if R knee immobilizer is still needed.
[2016-09-19 19:59] VITALS: BP 103/59
[2016-09-20 07:56] VITALS: BP 103/53
[2016-09-20 19:45] VITALS: BP 99/74
[2016-09-21 06:52] LABS: BASOPHILS % (AUTO) 0.4 % (0.0-2.0); EOSINOPHILS # (AUTO) 0.2 /CMM (0.0-0.7); EOSINOPHILS % (AUTO) 3.1 % (0.0-6.0); HEMATOCRIT 29 % (33-45); HEMOGLOBIN 9.3 g/dL (11.5-14.8); LYMPHOCYTES # (AUTO) 2.1 /CMM (0.8-4.8); MEAN CORPUSCULAR HEMOGLOBIN 26 PG (26.0-33.0); MEAN CORPUSCULAR HGB CONC 32 g/dl (31.0-36.0); MEAN CORPUSCULAR VOLUME 83 fL (82-100); MONOCYTES # (AUTO) 0.5 /CMM (0.1-1.30); MONOCYTES % (AUTO) 8.6 % (2.0-12.0); NEUTROPHILS # (AUTO) 2.8 /CMM (1.8-8.9); NEUTROPHILS % (AUTO) 49.9 % (43.0-81.0); PLATELET COUNT (AUTO) 326 /CMM (150-450); RDW COEFFICIENT OF VARIATION 17.6 (11.5-15.0); RED BLOOD CELL COUNT(AUTO) 3.55 MIL/uL (4.0-5.2); WHITE BLOOD COUNT (AUTO) 5.6 K/uL (4.3-11.0)
[2016-09-21 07:05] LABS: POTASSIUM 3.9 mmol/L (3.5-5.1)
[2016-09-21 07:06] LABS: CALCIUM, SERUM 9.9 mg/dL (8.5-10.1); CREATININE 0.5 mg/dL (0.6-1.3); MAGNESIUM 2.1 mg/dL (1.8-2.4); PHOSPHORUS 3.2 mg/dL (2.5-4.9)
[2016-09-21 07:45] LABS: EOSINOPHILS % (MANUAL) 3 % (0-4); LYMPHOCYTES % (MANUAL) 31 % (16-48); MONOCYTES % (MANUAL) 6 % (0-11.0); NEUTROPHILS % (MANUAL) 60 (42-76)
[2016-09-21 08:22] VITALS: BP 99/54
--- NOTE | 2016-09-21 13:00 | NUR ---
Called and spoke to PA Shama regarding Right knee immobilizer, okay to continue to keep right knee immobilizer, rellease every 4 hours to check skin circulation and skin integrity. Sister came and made aware of new orders.
--- NOTE | 2016-09-21 15:24 | NUR ---
Left message for CONVERTIBLE SOFA BEDSPRING TESTER Stella (covering for CONVERTIBLE SOFA BEDSPRING TESTER Makeda) regarding duration of Maxitrol eye drops.
--- NOTE | 2016-09-21 17:00 | NUR ---
Stella PRINCE called back and will see patient tonight regarding maxitrol eye drops for MRSA both eyes.
[2016-09-21 19:49] VITALS: BP 98/72
[2016-09-22 08:15] VITALS: BP 96/58
--- NOTE | 2016-09-22 11:45 | NUR ---
Called pt's sister Judith and notified her that Maxitrol eye drops was DC'd, pt will start again on Polytrim eye drops and Bactrim DS for the MRSA eye infection. She said she will see pt today.
--- NOTE | 2016-09-22 13:30 | NUR ---
EMILY Sesay called back and informed him resident's sister, Judith, does not want to continue applying right knee immobilizer since it has been weeks already. EMILY explains it's just for comfort reason like when resident is moved but it's ok to stop it. With order okay to discontinue right knee immobilizer per sister request. Judith present at bedside and notified of new order. Right knee immobilizer removed. Resident appears comfortable without s/s of pain noted at this time.
[2016-09-22 19:15] VITALS: BP 102/60
[2016-09-23 07:58] VITALS: BP 109/54
[2016-09-23 20:00] VITALS: BP 99/68
[2016-09-24 07:51] VITALS: BP 102/64
--- NOTE | 2016-09-24 09:48 | NUR ---
Spoke to Makeda PRINCE regarding stop date of Bactrim DS for 7 days only order clarified noted and carried out.Resident responsible alliance party Judith made aware.
--- NOTE | 2016-09-24 15:00 | NUR ---
Seen by Coby aPbon SUSTAINABLE DESIGN COORDINATOR made aware of pt increased secretions per SUSTAINABLE DESIGN COORDINATOR she's always have secretions as long as she's not having fever.Pt no fever no sob no acute distress. Nurse Sane with no new order.
--- NOTE | 2016-09-24 15:30 | NUR ---
Seen by Dr Noel regarding pt left and right thumb fingernail discoloration per MD no treatment right now.
--- NOTE | 2016-09-24 16:00 | NUR ---
Seen by Dr Sanchez regarding left heel wound per MD no new order.
[2016-09-24 20:23] VITALS: BP 105/72
[2016-09-25 07:36] VITALS: BP 105/68
--- NOTE | 2016-09-25 09:09 | NUR ---
WOUND CARE CONSULT: PT SEEN FOR RT ACHILLES AREA STAGE II ULCER WHICH MEASURES 2.5CM X 2.5CM X 0.1CM AND IS PINK AND RED IN COLOR, SCANT PINK DRAINAGE, NO ODOR. RECOMMENDATIONS MADE FOR WOUND CARE INCLUDE HYDROGEL AND MEPILEX, SECURE WITH BURN NETTING. HEELS FLOATED AND AREA OFFLOADED. DISCUSSED WITH NURSING STAFF. MD IN AGREEMENT WITH PLAN OF CARE.
--- NOTE | 2016-09-25 14:10 | NUR ---
IDT meeting held, attended by Judith resident's sister. All new orders were reviewed and identified all skin problems and it's current treatment. Resident continue to be on isolation for MRSA of the eye with current treatment of Polytim eye drops, redness in the eye improving. R knee immobilizer has been discontinued per sister request. Family is pleased with the care.
[2016-09-25 19:43] VITALS: BP 104/59
[2016-09-26 07:31] VITALS: BP 98/58
--- NOTE | 2016-09-26 14:25 | NUR ---
Resident's sister Judith visited together with her children. The family observed isolation precaution due to isolation status.
[2016-09-26 19:28] VITALS: BP 121/66
--- NOTE | 2016-09-27 03:02 | NUR ---
Seen and examined by NIKI Mora with new order to complete dose of Bactrim and Polytrim for 10 days carried out.
[2016-09-27 08:07] VITALS: BP 96/58
[2016-09-27 19:30] VITALS: BP 95/68
[2016-09-28 07:56] VITALS: BP 91/54
[2016-09-28 19:43] VITALS: BP 112/67
[2016-09-29 07:54] VITALS: BP 90/50
--- NOTE | 2016-09-29 09:40 | NUR ---
Seen by Dr Macario with no new order.
--- NOTE | 2016-09-29 14:00 | NUR ---
Resident's sister wanted to speak to SW regarding her expectations for the room. She stated that she wants AUDIO ENGINEER supplies on top of the brown cabinet in resident's room. She stated that everytime she comes in, she feels that she has to be re-arranging things. SW had sister speak to current AUDIO ENGINEER and also informed charge nurse and nursing technician of Judith's concerns.
[2016-09-29 19:44] VITALS: BP 97/55
[2016-09-30 07:53] VITALS: BP 122/46
--- NOTE | 2016-09-30 17:47 | NUR ---
Seen and examined by Coby Pabon NP for Dr. Macario, dental appliance mechanic, NNO given.
[2016-09-30 20:20] VITALS: BP 104/65
[2016-10-01 07:48] VITALS: BP 86/57
[2016-10-01 21:06] VITALS: BP 96/69
[2016-10-02 07:38] VITALS: BP 99/52
--- NOTE | 2016-10-02 09:30 | NUR ---
Seen and examined by Dr. Nichole Dugan, made aware that Bactrim completed yesterday and last dose of Polytrim eye drops is today. Per IC we need to reculture both eyes 24 hours after ATB to clear for isolation. is agreement. Endorsed to obtain specimen in AM.
[2016-10-02 23:18] VITALS: BP 145/66
[2016-10-03 07:50] VITALS: BP 121/80
[2016-10-03 20:41] VITALS: BP 98/61
--- NOTE | 2016-10-04 01:07 | NUR ---
EQUIPMENT CHANGED. Addendum: 10/04/16 at 0107 by DAXA LAGUNA RT Amended: Links added.
[2016-10-04 08:18] VITALS: BP 103/65
[2016-10-04 19:16] VITALS: BP 109/76
[2016-10-05 08:00] VITALS: BP 115/73
[2016-10-05 19:50] VITALS: BP 118/70
[2016-10-06 08:00] VITALS: BP 103/67
--- NOTE | 2016-10-06 10:10 | NUR ---
Seen and examined by Dr Macario with no new order.
[2016-10-06 19:49] VITALS: BP 105/68
[2016-10-07 07:49] VITALS: BP 107/66
--- NOTE | 2016-10-07 12:30 | NUR ---
Left a message to NIKI Ashford, ID regarding positive MRSA result of the L eye. Awaiting for call back if she wants to treat.
--- NOTE | 2016-10-07 13:09 | NUR ---
Received an order from NIKI Ashford to continue Polytrim to L eye x 2 weeks for MRSA infection. Judith, sister visiting and made aware of the new order. She was given update of what is going on with her sister especially culture result and treatment.
[2016-10-07 20:00] VITALS: BP 91/56
[2016-10-08 07:22] VITALS: BP 105/66
--- NOTE | 2016-10-08 13:35 | NUR ---
Notified NIKI Ashford that pt's right eye has MRSA. Received order to administer Polytrim ophthalmic drops 1 drop to right eye q 4 hours x 2 weeks for MRSA on the right eye.
[2016-10-08 19:15] VITALS: BP 120/66
[2016-10-09 07:47] VITALS: BP 110/53
[2016-10-09 19:44] VITALS: BP 92/54
[2016-10-10 07:40] VITALS: BP 109/55
--- NOTE | 2016-10-10 18:41 | NUR ---
10/10/16 @ 0900 Follow-up done regarding T-93.4. Bear hugger in place upon round @ 0700, noted on low heat, increased to medium heat and temp rechecked, obtained 97.6 (A). Charge Nurse made aware of low temp at beginning of shift and the latest temp when rechecked. Pt not in any acute distress at this time.
[2016-10-10 19:42] VITALS: BP 98/67
[2016-10-11 07:44] VITALS: BP 101/68
[2016-10-11 19:55] VITALS: BP 104/72
[2016-10-12 08:00] VITALS: BP 94/56
[2016-10-12 19:50] VITALS: BP 93/63
[2016-10-13 07:52] VITALS: BP 111/70
[2016-10-13 19:34] VITALS: BP 83/67
[2016-10-14 08:07] VITALS: BP 104/61
[2016-10-14 20:01] VITALS: BP 100/51
[2016-10-15 20:24] VITALS: BP 109/53
[2016-10-16 08:01] VITALS: BP 86/52
--- NOTE | 2016-10-16 11:36 | NUR ---
Seen and examined by Dr. Kvng Alfaro, ODALISO given. 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
--- NOTE | 2016-10-16 14:29 | NUR ---
IDT meeting held, family unable to attend. Reviewed new orders, medications, treatments and plan of care. Resident continue getting her eye drops bilaterally and Bactrim via GT for MRSA of the eye. No other given.
[2016-10-17 08:47] VITALS: BP 111/70
[2016-10-17 19:40] VITALS: BP 113/88
[2016-10-18 08:00] VITALS: BP 95/59
--- NOTE | 2016-10-18 13:47 | NUR ---
Seen and examined by Dr. Montez with no new order.
[2016-10-18 19:38] VITALS: BP 92/66
[2016-10-19 08:00] VITALS: BP 98/58
[2016-10-19 19:45] VITALS: BP 93/71
[2016-10-20 08:00] VITALS: BP 102/70
--- NOTE | 2016-10-20 17:54 | NUR ---
Notified NIKI Pabon that pt has had no bowel movement for 4 days now, Lactulose and Dulcolax suppositories have been given but have been ineffective. Received order to do tap water enema x 2 and to give Lactulose 20 gm GT q 8 hours PRN until pt has a bowel movement. Pt was noted with bowel movement even before administering the enema and Lactulose. Notified NIKI Pabon.
[2016-10-20 19:35] VITALS: BP 95/72
[2016-10-21 07:53] VITALS: BP 89/64
--- NOTE | 2016-10-21 14:30 | NUR ---
Seen by NIKI Ashford, ID made her aware that patient's ATB is about to complete, she said to reculture the eyes. Informed NIKI Ashford that according to pharmacist, they can reconstitute Vancomycin so it can be given as an eye drops if it turns out to be positive for MRSA again. She is agreement. Endorsed to collect specimen. Resident's sister visited very happy to see resident up in the wheelchair.
[2016-10-21 19:59] VITALS: BP 100/52
[2016-10-22 07:37] VITALS: BP 104/65
[2016-10-22 08:19] LABS: CALCIUM, SERUM 10.3 mg/dL (8.5-10.1); CREATININE 0.5 mg/dL (0.6-1.3); POTASSIUM 4.1 mmol/L (3.5-5.1)
--- NOTE | 2016-10-22 18:12 | NUR ---
Seen by ALUMINUM BOAT INSPECTOR Coby Pabon. Relayed BMP result to her. No new order.
[2016-10-22 21:09] VITALS: BP 95/58
[2016-10-23 07:36] VITALS: BP 98/50
--- NOTE | 2016-10-23 11:29 | NUR ---
Seen by Dr. Kvng Alfaro, new order for labs in AM (Vit B12, BMP, CBC, Ferritin, Iron Panel, Mg. Phos, stool occult Blood x3 ) order noted and carried out.
[2016-10-23 19:48] VITALS: BP 100/71
[2016-10-24 07:27] LABS: BASOPHILS % (AUTO) 0.4 % (0.0-2.0); EOSINOPHILS # (AUTO) 0.1 /CMM (0.0-0.7); EOSINOPHILS % (AUTO) 2.5 % (0.0-6.0); HEMATOCRIT 33 % (33-45); HEMOGLOBIN 10.6 g/dL (11.5-14.8); LYMPHOCYTES # (AUTO) 1.9 /CMM (0.8-4.8); LYMPHOCYTES % (AUTO) 39.8 % (20.0-44.0); MEAN CORPUSCULAR HEMOGLOBIN 26 PG (26.0-33.0); MEAN CORPUSCULAR HGB CONC 32 g/dl (31.0-36.0); MEAN CORPUSCULAR VOLUME 81 fL (82-100); MONOCYTES # (AUTO) 0.3 /CMM (0.1-1.30); MONOCYTES % (AUTO) 6.7 % (2.0-12.0); NEUTROPHILS # (AUTO) 2.4 /CMM (1.8-8.9); NEUTROPHILS % (AUTO) 50.6 % (43.0-81.0); PLATELET COUNT (AUTO) 155 /CMM (150-450); RDW COEFFICIENT OF VARIATION 18.6 (11.5-15.0); RED BLOOD CELL COUNT(AUTO) 4.01 MIL/uL (4.0-5.2); WHITE BLOOD COUNT (AUTO) 4.8 K/uL (4.3-11.0)
[2016-10-24 07:28] VITALS: BP 102/65
--- NOTE | 2016-10-24 07:30 | NUR ---
NOTES RECEIVED PATIENT IN AWAKE, EYES OPEN, NON VERBAL. ON TRACH WITH COOL AEROSOL AT 28%, BREATHING EVEN AND NON LABORED. ON GTUBE FEEDING NOVASOURCE RENAL 30ML/HR, MAINTAIN HOB ELEVATED. ON CONTACT ISOLATION MRSA BOTH EYES, CONTACT PRECAUTION OBSERVED. WILL CONT TO MONITOR.
[2016-10-24 07:59] LABS: CALCIUM, SERUM 10.2 mg/dL (8.5-10.1); CREATININE 0.6 mg/dL (0.6-1.3); MAGNESIUM 1.9 mg/dL (1.8-2.4); POTASSIUM 3.9 mmol/L (3.5-5.1)
[2016-10-24 08:00] VITALS: BP 102/65
--- NOTE | 2016-10-24 18:37 | NUR ---
NOTES PATIENT IN BED, NOT IN DISTRESS, REMAINS STABLE. STOOL OB RESULTED-NEGATIVE. WILL ENDORSE TO DEEP SUBMERGENCE VEHICLE OPERATOR RN FOR CONTINUITY OF CARE.
[2016-10-25 07:27] VITALS: BP 93/57
--- NOTE | 2016-10-25 07:30 | NUR ---
RN NOTES RECEIVED PATIENT ON BED AWAKE, EYES OPEN, NON VERBAL. WITH TRACH IN SITU WITH COOL AEROSOL AT 28%, BREATHING EVEN AND NON LABORED. ON GT FEEDING NOVASOURCE RENAL 30ML/HR, MAINTAIN HOB ELEVATED. ON CONTACT ISOLATION MRSA BOTH EYES, CONTACT PRECAUTION OBSERVED. CALL LIGHT WITHIN REACH, BED IN LOW POSITION FOR SAFETY MEASURES. WILL CONT TO MONITOR.
[2016-10-25 08:00] VITALS: BP 93/57
--- NOTE | 2016-10-25 18:26 | NUR ---
RN NOTES STABLE THE WHOLE SHIFT. ALL NEEDS ATTENDED AND ANTICIPATED. ENDORSED TO INCOMING SHIFT FOR CONTINUITY OF CARE.
[2016-10-25 20:02] VITALS: BP 113/70
[2016-10-26 07:47] VITALS: BP 77/50
[2016-10-26 19:45] VITALS: BP 108/73
[2016-10-27 07:30] VITALS: BP 101/56
[2016-10-27 20:01] VITALS: BP 100/64
[2016-10-28 08:03] VITALS: BP 99/59
[2016-10-28 19:52] VITALS: BP 98/72
[2016-10-29 19:55] VITALS: BP 96/64
[2016-10-30 08:00] VITALS: BP 102/56
[2016-10-30 19:55] VITALS: BP 94/70
[2016-10-31 08:00] VITALS: BP 95/65
--- NOTE | 2016-10-31 10:02 | NUR ---
Reported to Dr. Light, talent acquisition sourcer for Dr. Sandoval noted redness in the R thigh extending to R hip. Area is warm to touch VS 95/65, 97.9, 119, 16 99%. Informed MD that a CT and Xray of the R knee was taken on Addendum: 10/31/16 at 1011 by BRIDGETT MORIN RN Informed that a CT and Xray of the R knee was taken on 08/12/16 due to similar symptoms; swelling and area warm to touch. According to Dr. Light, he will be in the hospital in an hour and will take a look at it.
--- NOTE | 2016-10-31 10:24 | NUR ---
Dr. Nichole Dugan notified of patient's R hip/R thigh redness which is warm to touch. saw the picture taken and reviewed previous CT scan Xray of the R knee which had similar symptoms; area swelling and warm to touch, stated "this looks more like an infection". New order given for Vancomycin for 7 days per pharmacy to dose. Spoke with Irina, gave her information such as Ht., weight, BUN and Creatinine. Per Irina, pharmacist will call as soon as they calculate the dose. Judith, sister notified of the patient's change in condition and new order. Appreciated the information given.
--- NOTE | 2016-10-31 15:00 | NUR ---
Resident's mother visited, inquired about patient's condition. Informed her that patient's R hip noted with redness and warm tot touch. Patient will start ATB IV, heplock inserted in the R hand using G 22 x 1 attempt with good blood return. Vanco dosing 750mg Q8 hours x 7 days with trough level on Wednesday 10 am dose/ per [facility].
--- NOTE | 2016-10-31 18:40 | NUR ---
NIKI Ashford seen preliminary eye culture result for both eyes, with new order to start patient on Cipro eye drops and at the same time to continue Polytrim eye drops. She stated that she will review the medications once again final culture is available.
[2016-10-31 19:56] VITALS: BP 106/48
[2016-11-01 08:00] VITALS: BP 96/53
[2016-11-01 20:02] VITALS: BP 101/54
[2016-11-02 07:38] LABS: BASOPHILS % (AUTO) 0.2 % (0.0-2.0); EOSINOPHILS # (AUTO) 0.2 /CMM (0.0-0.7); EOSINOPHILS % (AUTO) 1.9 % (0.0-6.0); HEMATOCRIT 26 % (33-45); HEMOGLOBIN 8.5 g/dL (11.5-14.8); LYMPHOCYTES # (AUTO) 1.4 /CMM (0.8-4.8); LYMPHOCYTES % (AUTO) 18.4 % (20.0-44.0); MEAN CORPUSCULAR HEMOGLOBIN 26 PG (26.0-33.0); MEAN CORPUSCULAR HGB CONC 33 g/dl (31.0-36.0); MEAN CORPUSCULAR VOLUME 81 fL (82-100); MONOCYTES # (AUTO) 0.4 /CMM (0.1-1.30); MONOCYTES % (AUTO) 5.3 % (2.0-12.0); NEUTROPHILS # (AUTO) 5.8 /CMM (1.8-8.9); NEUTROPHILS % (AUTO) 74.2 % (43.0-81.0); PLATELET COUNT (AUTO) 146 /CMM (150-450); RED BLOOD CELL COUNT(AUTO) 3.23 MIL/uL (4.0-5.2); WHITE BLOOD COUNT (AUTO) 7.8 K/uL (4.3-11.0)
[2016-11-02 07:50] LABS: CALCIUM, SERUM 9.6 mg/dL (8.5-10.1); CREATININE 0.4 mg/dL (0.6-1.3); MAGNESIUM 1.5 mg/dL (1.8-2.4); PHOSPHORUS 3.3 mg/dL (2.5-4.9); POTASSIUM 3.3 mmol/L (3.5-5.1)
[2016-11-02 08:00] VITALS: BP 102/56
--- NOTE | 2016-11-02 10:15 | NUR ---
Dr. Dariel Dugan came, made aware of lab results, K+ 3.3, Mg 1.5, Hgb 8.5, she ordered to give 1 dose only KCL- 40 meq Via GT, Mg oxide 400 mg via GT DAILY X 3 DAYS. Repeat BMP on wednesday11/06/2016. Called [facility] pharmacy okay to get medication from [facility]. 1 X dose of K CL 40 MEQ given via GT FROM [facility].
--- NOTE | 2016-11-02 12:00 | NUR ---
Relayed Vanco trough level (26) to [facility] IV pharmacist MS. IRVING, per pharmacist to dose, hold VANCO 10 am dose today until beau doses then check vanco random level on wed. 10/04/2017 Addendum: 11/02/16 at 1247 by EMMIE MAXWELL RN vanco random level on wed11/04/2016.
--- NOTE | 2016-11-02 20:30 | NUR ---
RN NOTES Venous Doppler done to right leg, negative for DVT. Will notify Makeda in am of results.
[2016-11-03 08:00] VITALS: BP 103/59
--- NOTE | 2016-11-03 17:27 | NUR ---
NIKI Ashford said to ask [facility] for the sensitivities of right eye culture. Called [facility] , but no microbiologists were available. Microbiologists are available from 6am to 2:30 pm.
[2016-11-03 19:48] VITALS: BP 99/51
[2016-11-04 07:11] LABS: CREATININE 0.4 mg/dL (0.6-1.3)
[2016-11-04 07:30] VITALS: BP 88/56
--- NOTE | 2016-11-04 08:33 | NUR ---
Faxed Vanco trough level to [facility] pharmacy, result 5, awaiting for called back from IV pharmacist for dosing.
--- NOTE | 2016-11-04 09:15 | NUR ---
Called laboratory and spoke with Narendra, informing him that per mine shifter, the nurse called [facility] to follow-up the sensitivity result of the L and R eye culture but was able to give her the information she was looking for. According to Narendra, he will call [facility] laboratory himself and will call this nurse back.
--- NOTE | 2016-11-04 15:21 | NUR ---
Spoke with Larry from [facility] lab, explained that sensitivity result for Pseudomonas Aeruginosa in the L eye will be the same sensitivity that will be use for the R eye since they have the same organism. (Specimen collected on October 29, 2016). Notified NIKI Ashford regarding above information awaiting for orders.
--- NOTE | 2016-11-04 17:00 | NUR ---
Received an order from Makeda after she reviewed sensitivity result to DC Cirpo eye drops and start patient with Gentamicin eye drops, no stop date yet for both Polytrim and Gentamicin eye drops. Left a message to Judith, sister regarding new order.
--- NOTE | 2016-11-04 18:27 | NUR ---
Judith returned the call and explained the new eyes drops and why it was replaced. It was also mentioned the new dosing for Vancomycin IV. R thigh is no longer red, flush and not warm to touch. No adverse reaction from ATB, heplock remain patent with good blood return. Sister appreciated the information given.
[2016-11-04 20:17] VITALS: BP 96/59
--- NOTE | 2016-11-05 07:00 | NUR ---
RN NOTES RECEIVED RESIDENT ON BED , STABLE . TRACH CARE DONE .
[2016-11-05 07:29] VITALS: BP 103/59
[2016-11-05 19:34] VITALS: BP 111/61
[2016-11-06 06:57] LABS: CALCIUM, SERUM 9.5 mg/dL (8.5-10.1); CREATININE 0.4 mg/dL (0.6-1.3); POTASSIUM 3.2 mmol/L (3.5-5.1)
[2016-11-06 08:04] VITALS: BP 102/67
[2016-11-06 11:40] LABS: CREATININE 0.5 mg/dL (0.6-1.3)
--- NOTE | 2016-11-06 14:00 | NUR ---
IDT meeting held, Judith attended the meeting. Current orders, new medications and treatments reviewed by the team. Patient continue on Levaquin and Vancomycin IV for cellulitis, no adverse reaction noted. Resident's sister asked Dr. Macario if patient can have diuretic due to swelling in the lower extremities. MD reviewed BP in the past couple of days and gave an order to give Lasix and BMP on Wednesday. Dr. Nichole Dugan also examined resident, made aware of new order and added KCL while on Lasix. Resident up in the wheelchair today x 2 hours, tolerated well.
[2016-11-06 20:53] VITALS: BP 92/57
[2016-11-07 07:36] VITALS: BP 96/63
[2016-11-07 09:14] VITALS: BP 100/69
[2016-11-07 19:50] VITALS: BP 103/76
[2016-11-08 07:35] VITALS: BP 101/59
[2016-11-08 19:35] VITALS: BP 99/74
[2016-11-09 06:55] LABS: CALCIUM, SERUM 9.4 mg/dL (8.5-10.1); CREATININE 0.4 mg/dL (0.6-1.3); POTASSIUM 3.7 mmol/L (3.5-5.1)
[2016-11-09 07:54] VITALS: BP 109/62
--- NOTE | 2016-11-09 09:48 | NUR ---
Seen by Dr. Dugan. Relayed lab results to her. No new order.
[2016-11-09 19:41] VITALS: BP 97/61
[2016-11-10 08:19] VITALS: BP 90/50
[2016-11-10 19:58] VITALS: BP 99/70
[2016-11-11 07:58] VITALS: BP 99/61
[2016-11-11 19:54] VITALS: BP 99/58
[2016-11-12 07:32] VITALS: BP 91/53
[2016-11-12 22:49] VITALS: BP 93/60
[2016-11-13 07:39] VITALS: BP 71/40
[2016-11-14 00:56] VITALS: BP 106/67
[2016-11-14 07:30] VITALS: BP 91/62
[2016-11-14 19:20] VITALS: BP 95/63
[2016-11-15 08:00] VITALS: BP 116/62
[2016-11-15 20:39] VITALS: BP 106/61
[2016-11-16 08:00] VITALS: BP 92/59
--- NOTE | 2016-11-16 10:00 | NUR ---
Seen and examined by Dr. Nichloe Dugan, notified MD that eye drop will continue for another 14 days from Wednesday. According to Dr. Dugan, to ask LORRAINE Ashford if she wants to d/c the eye drop order and she is fine with that, patient is asymptomatic, Infection control nurse who was on the floor, told Dr. Dugan that 3 negative culture is needed before isolation can be discontinued. IC stated treatment can be discontinue but patient will remain on contact isolation unless patient has consecutive 3 negative cultures. Will ask ID if she wants to d/c ATB.
--- NOTE | 2016-11-16 12:58 | NUR ---
Resident's sister, Judith visited, gave her an update of what Dr. Dugan said about patint's isolation. She understands that if patient is colonized not presenting any symptoms,she will continue to be on contact isolation. According to Judith, she would like patient to be clear of infection before removing her from isolation. Will inform /Makeda.
--- NOTE | 2016-11-16 15:35 | NUR ---
Notified NIKI Ashford of how Dr. Nichole Dugan feels about discontinuing the eye drops, according to NIKI Ashford she can discontinue the isolation because patient is colonized, patient no more eye discharge however per policy, 3 negative culture is needed before isolation can be discontinued. According to Makeda, to continue the eye drops until duration of therapy is completed. Inform Makeda, that family would like to see that we have negative cultures before discontinuing her isolation.
--- NOTE | 2016-11-16 19:30 | NUR ---
RN NOTES Seen by Coby Pabon with NNO.
[2016-11-16 19:40] VITALS: BP 105/62
--- NOTE | 2016-11-17 10:34 | NUR ---
Seen and examined by Dr. Macario made aware that patient still receiving eye drops for ocular infection. Remain on contact isolation for MRSA. Addendum: 11/17/16 at 1048 by BRIDGETT MORIN RN Notified Dr. Macario patient gained 1 lb despite taking Lasix and asked if he wants to continue, Dr. Macario stated to continue diuretic for now.
[2016-11-17 12:15] VITALS: BP 96/62
[2016-11-17 20:33] VITALS: BP 98/64
--- NOTE | 2016-11-17 23:00 | NUR ---
PATIENT NOTED WITH REDNESS ON LEFT AND RIGHT UNDERBREAST, SKIN INTACT, NO S/S OF INFECTION, NOTIFIED DR. HERNANDEZ WITH TREATMENT ORDER NOTED AND CARRIED OUT.
[2016-11-18 07:28] VITALS: BP 141/75
[2016-11-18 20:01] VITALS: BP 127/69
[2016-11-19 07:38] VITALS: BP 109/64
--- NOTE | 2016-11-19 15:40 | NUR ---
Seen and examined by Coby PRINCE with no new order.
[2016-11-19 19:42] VITALS: BP 92/56
[2016-11-20 07:39] VITALS: BP 139/63
[2016-11-20 20:36] VITALS: BP 95/52
[2016-11-21 08:00] VITALS: BP 106/49
[2016-11-21 20:21] VITALS: BP 100/67
[2016-11-22 07:45] VITALS: BP 79/57
[2016-11-22 19:58] VITALS: BP 103/69
[2016-11-23 07:31] LABS: CALCIUM, SERUM 10.1 mg/dL (8.5-10.1); CREATININE 0.5 mg/dL (0.6-1.3); MAGNESIUM 2.1 mg/dL (1.8-2.4); PHOSPHORUS 3.5 mg/dL (2.5-4.9)
[2016-11-23 07:44] VITALS: BP 129/75
--- NOTE | 2016-11-23 09:44 | NUR ---
Seen by Dr. Dugan. Relayed BMP result to her. No new order.
[2016-11-23 19:56] VITALS: BP 98/58
[2016-11-24 07:56] VITALS: BP 132/59
[2016-11-24 19:55] VITALS: BP 111/64
[2016-11-25 07:29] VITALS: BP 107/61
[2016-11-25 19:56] VITALS: BP 99/69
[2016-11-26 07:45] VITALS: BP_SYST 105
--- NOTE | 2016-11-26 13:30 | NUR ---
Pt's sister Judith verbalized that she is unhappy that her sister's eyes are still red, that there is a cut on the outer canthus of both left and right eyes, that pt is still on isolation, and that the pt's eyes are not improving. Notified CURING PICKLING PACKER Makeda, asked her if she can see the pt. Pt is on Gentamicin and Polymixin eye drops until 11/29/16. Pt was seen by NIKI Pabon and notified her of sister's concerns. Received order for ophthalmology consult (optometry if ophthalmology not available). Notified criminal justice social worker Michelle.
--- NOTE | 2016-11-26 14:00 | NUR ---
Received order from NIKI Ashford for ophthalmology consult. Notified her that it is currently being arranged.
--- NOTE | 2016-11-26 14:15 | NUR ---
Called the office of Dr. Gómez (hvac manager- [phone]) and spoke to Fili. SW was informed by charge nurse that patient has eye redness in both of her eyes and outer part of both eyes have a linear cut. Fili stated that he will let Dr. Gómez know and he will call the SW. Received call from Dr. Gómez and had charge nurse speak to him. Per charge nurse, she informed him of the medications resident is receiving for her eyes and charge nurse stated that Dr. Gómez will call again.
--- NOTE | 2016-11-26 16:30 | NUR ---
Received order from Dr. Gómez to DC Polymyxin ophthalmic drops and give Polytrim ophthalmic drops 1 drop to both eyes q 3 hours for [address]. [address] Gómez that pt has been treated with Polytrim in the past and ocular infection has not resolved. Dr. Gómez ordered to DC Polytrim and give Vancomycin ophthalmic drops to both eyes, and if Vancomycin is not covered by the insurance, he ordered to give Zymaxid ophthalmic drops q 3 hours for 3 days then QID for the remaining days (14 days total), and if Zymaxid is also not covered by the insurance then give Polytrim ophthalmic drops. Addendum: 11/26/16 at 1825 by MIGUELANGEL REEDER RN Dr. Gómez aware of linear cut in outer canthus of both eyes.
--- NOTE | 2016-11-26 18:00 | NUR ---
NIKI Ashford came and said that pt needs to be seen by beef boner, not sap specialist. Explained to her that there is no available beef boner, she emphasized that an beef boner should come to see the pt. Will endorse to have group social worker find an beef boner for the pt.
[2016-11-26 19:54] VITALS: BP 114/61
[2016-11-27 07:35] VITALS: BP 125/97
--- NOTE | 2016-11-27 08:00 | NUR ---
Faxed referral to the office of Dr. Hayden and Dr. Mayes- ophthalmologists (both located at [address] [place] [id number] ) for the resident. SW will follow up.
--- NOTE | 2016-11-27 10:26 | NUR ---
Received a call from Dr. Hayden who stated that he is not able to see the resident. He stated that he is out of town until December 08, 2016 and also does not accept the resident's insurance. He noted that he has never been paid back for the services he has provided to the hospital and also stated that Dr. Mayes is also unavailable to see the resident as well. Both are out of town and also stated the lack of ophthalmologists at their practice. dry yard worker notified charge nurse and CNO Jamel. Per CNO, charge nurse to inform primary doctor about bridge opener unavailability to see if alternative arrangements can be made.
--- NOTE | 2016-11-27 10:52 | NUR ---
Notified NIKI Ashford that no insurance healthcare consultant is available to see pt at this time. Awaiting response.
--- NOTE | 2016-11-27 11:00 | NUR ---
Vancomycin eye drops not covered by pt's insurance, changed to Zymaxid as ordered by Dr. Gómez.
--- NOTE | 2016-11-27 11:30 | NUR ---
Per Makeda, to notify family about unavailability of food and beverage checker at this time. No additional orders given.
--- NOTE | 2016-11-27 15:20 | NUR ---
Per [facility] pharmacist Matilde, obtained order from Dr. Alfaro to start pt on Vancomycin IV pharmacy to dose for MRSA of eyes. Order noted and carried out. Pt's sister Judith notified of room change, new order for Zymaxid eye gtts and Vanco IV. Verbalized understanding, appreciative of call and all orders.
--- NOTE | 2016-11-27 16:30 | NUR ---
Obtained order from Yan ([facility] pharmacsit) regarding Vancomycin dosing and labs. Orders noted and carried out.
[2016-11-27 19:25] VITALS: BP 99/59
[2016-11-28 19:15] LABS: CREATININE 0.5 mg/dL (0.6-1.3)
[2016-11-28 19:42] VITALS: BP 94/53
[2016-11-29 19:48] VITALS: BP 95/65
[2016-11-30 07:55] VITALS: BP 105/70
--- NOTE | 2016-11-30 11:25 | NUR ---
Seen by Dr. Dugan. Asked her for a stop date for pt's Vancomycin. She said to ask NIKI Ashford.
--- NOTE | 2016-11-30 13:45 | NUR ---
Seen by NIKI Pabon. She asked to clarify with NIKI Ashford if pt reallly needs to be on both Vancomycin IV and Zymaxid eye drops for MRSA nares. Referred to NIKI Ashford and also asked her for a stop date for Vancomycin. NIKI Ashford ordered to DC Vancomycin.
--- NOTE | 2016-11-30 14:14 | NUR ---
Social Service Section of [employer] completed (annual). Resident is non communicative and not alert. Resident opens her eyes but cannot track. Resident was seen by sound system installer Dr. Gómez on 06/30/2016 with follow up due within 6 months. She was also seen by the door to door sales representative on 10/10/2016 and by dentist on 02/10/2016 (1x/year or as needed). Resident is not on a vent. Sister Judith and mother Sabrina are involved in her care. Sister visits frequently.
--- NOTE | 2016-11-30 15:33 | NUR ---
Informed CNO that Makeda PRINCE is still requesting for eyeglass frames inspector to see the resident, however there are non available. He stated that he will look into it. Charge nurse informed.
[2016-11-30 19:40] VITALS: BP 86/58
[2016-12-01 07:56] VITALS: BP 117/67
[2016-12-01 08:01] VITALS: BP 90/50
[2016-12-01 19:41] VITALS: BP 83/50
[2016-12-02 07:46] VITALS: BP 98/69
[2016-12-02 20:32] VITALS: BP 91/57
[2016-12-03 07:28] VITALS: BP 95/64
[2016-12-03 20:54] VITALS: BP 98/70
[2016-12-04 07:27] VITALS: BP 103/72
[2016-12-04 19:52] VITALS: BP 101/42
[2016-12-05 07:54] VITALS: BP 88/53
[2016-12-05 09:00] VITALS: BP 97/58
[2016-12-05 09:45] VITALS: BP 97/58
[2016-12-05 17:56] VITALS: BP 100/61
[2016-12-05 19:46] VITALS: BP 100/62
[2016-12-06 08:06] VITALS: BP 93/63
[2016-12-06 20:15] VITALS: BP 103/60
[2016-12-07 08:08] VITALS: BP 94/56
[2016-12-07 20:12] VITALS: BP 108/60
[2016-12-08 08:26] VITALS: BP 104/67
[2016-12-08 19:52] VITALS: BP 101/61
[2016-12-09 08:09] VITALS: BP 101/57
[2016-12-09 20:10] VITALS: BP 127/85
[2016-12-10 07:58] VITALS: BP 72/48
[2016-12-10 19:51] VITALS: BP 108/58
[2016-12-11 07:49] VITALS: BP 118/71
[2016-12-11 19:36] VITALS: BP 99/56
[2016-12-12 07:48] VITALS: BP 135/69
--- NOTE | 2016-12-12 10:20 | NUR ---
Seen and examined by Dr Montez with no new order.
[2016-12-12 19:53] VITALS: BP 98/61
[2016-12-13 07:52] VITALS: BP 107/58
[2016-12-13 21:15] VITALS: BP 101/68
[2016-12-14 07:43] VITALS: BP 108/56
[2016-12-14 19:46] VITALS: BP 108/65
[2016-12-15 07:46] VITALS: BP 102/69
[2016-12-15 20:14] VITALS: BP 130/76
[2016-12-16 07:49] VITALS: BP 98/59
[2016-12-16 20:00] VITALS: BP 121/70
[2016-12-17 07:48] VITALS: BP 107/55
[2016-12-17 20:03] VITALS: BP 99/58
[2016-12-18 07:45] VITALS: BP 101/71
--- NOTE | 2016-12-18 09:51 | NUR ---
WOUND CARE CONSULT: PT SEEN FOR OPEN SKIN AT BACK OF NECK WHICH IS IMPROVING WITH ANTIBIOTIC OINTMENT AND MEPILEX. OPEN SKIN MEASURES 0.1CM X 1CM X 0.1CM. NO DRAINAGE NOTED, NO ODOR. PERIWOUND CLEAR. CONCUR WITH CURRENT TREATMENT. DISCUSSED WITH NURSING STAFF. ALL SKIN PROTECTION MEASURES IN PLACE. MD IN AGREEMENT WITH PLAN OF CARE. WILL SEE PRN.
[2016-12-18 20:58] VITALS: BP 97/57
[2016-12-19 08:10] VITALS: BP 104/71
[2016-12-19 20:09] VITALS: BP 96/51
[2016-12-20 07:46] VITALS: BP 101/54
--- NOTE | 2016-12-20 16:00 | NUR ---
Received eye culture result staph aureus-MRSA relayed to NIKI Ashford with order Zymaxid 1 drop to both eyes QID X 10days noted and carried out. Left voice message to FLACA Purvis mother.
[2016-12-20 19:56] VITALS: BP 86/56
[2016-12-21 07:05] LABS: CALCIUM, SERUM 9.7 mg/dL (8.5-10.1); CREATININE 0.5 mg/dL (0.6-1.3)
[2016-12-21 07:27] LABS: BASOPHILS % (AUTO) 0.4 % (0.0-2.0); EOSINOPHILS # (AUTO) 0.2 /CMM (0.0-0.7); EOSINOPHILS % (AUTO) 3.7 % (0.0-6.0); HEMATOCRIT 28 % (33-45); HEMOGLOBIN 8.9 g/dL (11.5-14.8); LYMPHOCYTES % (AUTO) 47.3 % (20.0-44.0); MEAN CORPUSCULAR HEMOGLOBIN 26 PG (26.0-33.0); MEAN CORPUSCULAR HGB CONC 32 g/dl (31.0-36.0); MEAN CORPUSCULAR VOLUME 82 fL (82-100); MONOCYTES # (AUTO) 0.5 /CMM (0.1-1.30); MONOCYTES % (AUTO) 8.5 % (2.0-12.0); NEUTROPHILS # (AUTO) 2.5 /CMM (1.8-8.9); NEUTROPHILS % (AUTO) 40.1 % (43.0-81.0); PLATELET COUNT (AUTO) 164 /CMM (150-450); RDW COEFFICIENT OF VARIATION 20.4 (11.5-15.0); RED BLOOD CELL COUNT(AUTO) 3.44 MIL/uL (4.0-5.2); WHITE BLOOD COUNT (AUTO) 6.3 K/uL (4.3-11.0)
[2016-12-21 08:01] LABS: PHOSPHORUS 3.6 mg/dL (2.5-4.9)
[2016-12-21 08:02] LABS: MAGNESIUM 1.9 mg/dL (1.8-2.4)
[2016-12-21 08:14] VITALS: BP 95/57
--- NOTE | 2016-12-21 19:07 | NUR ---
Requested NIKI Ashford to review pt's eye culture result. Pt is currently on Zymaxid eye drops but culture shows pt also has Strep agalactiae group B aside from the MRSA.
[2016-12-21 19:51] VITALS: BP 96/54
[2016-12-22 08:16] VITALS: BP 95/58
--- NOTE | 2016-12-22 08:58 | NUR ---
NIKI Ashford said to refer pt's eye infection to photo colorer. Notified social studies department chair Michelle. She said she will follow up with YOJANA Mccullough regarding the ophthalmology consult.
--- NOTE | 2016-12-22 09:07 | NUR ---
Dahlia called the office of Dr. Scott Mayes M.D., (underground roof bolter)- [address] [place] [address] . Dahlia had spoken to him earlier in the month and he had stated he was not able to see the resident, as he was out of town, does not accept the resident's insurance, and has concerns about payment. DAHLIA called his office and spoke to Miguelito. DAHLIA indicated that she had spoken to Dr. Mayes before and asked if he can please call the rn social work back to see if it is possible for him to see the resident since no other underground roof bolter available. DAHLIA to communicate with CNO regarding payment options for the resident. Miguelito stated she will let the doctor know to call the rn social work.
--- NOTE | 2016-12-22 18:26 | NUR ---
Late entry for 12/21/16 Seen by NIKI Pabon. Relayed CBC, BMP, Mg, Phosphorus results to her. No new order.
[2016-12-22 19:51] VITALS: BP 91/63
[2016-12-23 07:48] VITALS: BP 99/59
--- NOTE | 2016-12-23 09:27 | NUR ---
Spoke to Miguelito at the office of Dr. Mayes - research methodologist- [address] [place] [address] . She stated that she notified the doctor yesterday about calling the SW and will remind him when he comes into the office later today.
--- NOTE | 2016-12-23 15:30 | NUR ---
Dr Mayes ([phone]) spoke with the SW. SW informed him that resident is showing MRSA- staph aureous results for eye culture. He stated that he is not sure if he can come and see the resident and needs SW to fax him more information. SW faxed eye culture results, h&p, latest progress notes, medication list to fax # [phone]. He stated that infection would require several visits from him and that this would be time consuming. He also relayed that he was not happy about medicare rates since it does not adequately compensate him for his time, as he stated that one visit can take up to one hour and thirty minutes. SW stated that if this was the case, she can put him in touch with the CNO to agree on payment. He wanted to make it clear that it would require several visits and that he was not accepting to follow the resident. He also stated concern with discharge and stated that in the past, he has followed the patient's after discharge and has not gotten paid from them due to families having no funds. He noted he cannot just stop treatment of a patient after leaving hospital. LIZANDRO informed him that [facility] is a care home care facility and that the patient has been here since 10/2015 with no anticipated discharge date any time soon. He stated he will review the information the SW faxed to him and would call the SW with his decision. Charge nurse was informed.
[2016-12-23 20:01] VITALS: BP 97/61
[2016-12-24 07:18] VITALS: BP 115/47
[2016-12-24 20:01] VITALS: BP 98/70
[2016-12-25 08:07] VITALS: BP 98/60
--- NOTE | 2016-12-25 11:15 | NUR ---
Dr Mayes ([phone]) spoke with the SW. He stated that he was not going to be able to follow the resident but can talk to the charge nurse about what he suggests. Transferred phone call to the charge nurse.
--- NOTE | 2016-12-25 11:16 | NUR ---
Received a call from Dr. Mayes, education general manager and said that he is not able to see patient because based on the lab result faxed to him it will require follow up visit which he cannot do due to his upcoming vacation. He stated that if he has a similar patient he would do the ff: treat her with Tobramycin eye drops at day time,Tobramycin ointment at bedtime, repeat eye cx. and continue current eye drops until it is completed. He did not give dosing and frequency for Tobramycin eye drops because he said he is not seeing the patient, however he told this nurse that his attending MD can call him. Left a message to Dr. Alfaro regarding Dr. Mayes's recommendations and his phone number where he can be reached.
--- NOTE | 2016-12-25 11:47 | NUR ---
Dr. Alfaro returned the call and he is in agreement with Dr. Raya's recommendations with new order to give Tobramycin eye drops Q 6h x 10 days and Tobramycin ointment 1/2 in. at bedtime and then reevaluate. All orders noted and carried out. Judith, notified of the new order.
--- NOTE | 2016-12-25 15:25 | NUR ---
INTERDISCIPLINARY PLAN OF CARE CONFERENCE was held today. Resident's sister Judith unable to attend. New orders were reviewed. Dr. Macario and the interdisciplinary team reviewed the current plan of care in detail. Pharmacy will communicate with Jose, benefits director, regarding difficulty of finding certified nurse aide. Resident with current treatment to the eyes for her infection. No new orders were given.
[2016-12-25 19:32] VITALS: BP 101/67
[2016-12-26 07:34] VITALS: BP 106/66
--- NOTE | 2016-12-26 10:08 | NUR ---
Seen and examined by Dr. Alfaro, stated patient's eyes look better. He was also made aware that she vomited small amount of formula approx. 30ml, NNO given. Continue on Tobramycin eye drops and ointment.
[2016-12-26 19:58] VITALS: BP 91/57
[2016-12-27 07:46] VITALS: BP 98/59
[2016-12-27 19:53] VITALS: BP 99/61
[2016-12-28 07:37] VITALS: BP 98/56
[2016-12-28 19:57] VITALS: BP 96/61
[2016-12-29 08:07] VITALS: BP 99/57
[2016-12-29 19:53] VITALS: BP 97/53
[2016-12-30 12:41] VITALS: BP 94/58
[2016-12-30 20:36] VITALS: BP 97/73
[2016-12-31 07:44] VITALS: BP 103/56
--- NOTE | 2016-12-31 15:53 | NUR ---
Faxed referral to Dr. Gómez [employer] ( ) for regular eye check up appt, as the resident is due for her yearly checkup. SW will follow up. Addendum: 12/31/16 at 1554 by TOO BONE correction: resident was seen 06/30/2016 for eye exam but follow up was requested in 3-6 months for eye infection, which is currently being treated based on suggestions of opthalmologist. SW to check to see if mine patrol needs to see the resident.
[2016-12-31 20:03] VITALS: BP 106/71
[2017-01-01 07:35] VITALS: BP 108/71
--- NOTE | 2017-01-01 16:20 | NUR ---
Received order to do Vancomycin trough, BUN, Cr on 01/02/17 at 2230 per IV pharmacist Star's recommendation. Addendum: 01/01/17 at 1717 by MIGUELANGEL REEDER RN ERROR IN CHARTING/WRONG CHART
[2017-01-01 20:21] VITALS: BP 99/59
[2017-01-01 21:00] VITALS: BP 99/59
--- NOTE | 2017-01-02 04:30 | NUR ---
Noted patient's GT dislodged, Changed GT as per MD's order. Inserted new GT x1 without difficulty. Patient appears calm without any sign of pain and discomfort. Placement checked by aspiration and auscultation. Will closely monitor. Kept HOB up at 30 degrees.
[2017-01-02 08:11] VITALS: BP 82/51
[2017-01-02 20:08] VITALS: BP 132/84
[2017-01-03 07:44] VITALS: BP 93/57
[2017-01-03 20:15] VITALS: BP 97/66
[2017-01-04 07:44] VITALS: BP 98/69
[2017-01-04 20:00] VITALS: BP 108/60
[2017-01-05 08:06] VITALS: BP 109/71
[2017-01-05 21:22] VITALS: BP 121/65
[2017-01-06 08:01] VITALS: BP 107/70
[2017-01-06 19:57] VITALS: BP 128/94
--- NOTE | 2017-01-06 20:30 | NUR ---
Patient seen by NIKI Ashford ,notified her that Tobramycin drops and ointment completed.She said pt eyes looks good.We asked her if we need to re culture for MRSA,she said she don't want to order culture.Will continue to monitor.
[2017-01-07 07:59] VITALS: BP 93/61
[2017-01-07 19:34] VITALS: BP 98/68
[2017-01-08 07:36] VITALS: BP 105/60
--- NOTE | 2017-01-08 12:06 | NUR ---
Dr. Gómez (cpa tax) stated that he briefly looked at the resident's eyes, since he has been following her, and stated that he will not order anything for the resident. He noted that if resident needs an cpa tax consult, to please call him. LIZANDRO informed him that resident was receiving treatment suggested by equipment man and he stated that if resident continues to have eye problems, an opthalmologist will need to follow her. LIZANDRO told him of the challenges and he did agree that it is difficult for an equipment man to follow the resident considering her insurance and the amount of time it requires.
[2017-01-08 19:35] VITALS: BP 100/78
[2017-01-09 07:35] VITALS: BP 100/72
[2017-01-09 19:32] VITALS: BP 101/71
[2017-01-10 08:00] VITALS: BP 110/78
[2017-01-10 20:27] VITALS: BP 94/54
[2017-01-11 12:45] VITALS: BP 95/60
--- NOTE | 2017-01-11 17:00 | NUR ---
No redness noted to both eyes at this time, no drainage to both eyes. Patient not on antibiotic, still kept on isolation. Patient closely monitored.
[2017-01-11 20:44] VITALS: BP 81/55
--- NOTE | 2017-01-12 06:00 | NUR ---
pt is noted with no discharges on her eyes, pts eyes does'nt have redness at this time, continue to monitor pt for any changes of condition.
[2017-01-12 06:50] LABS: BASOPHILS % (AUTO) 0.2 % (0.0-2.0); EOSINOPHILS # (AUTO) 0.2 /CMM (0.0-0.7); EOSINOPHILS % (AUTO) 4.6 % (0.0-6.0); HEMATOCRIT 31 % (33-45); LYMPHOCYTES # (AUTO) 2.4 /CMM (0.8-4.8); LYMPHOCYTES % (AUTO) 45.1 % (20.0-44.0); MEAN CORPUSCULAR HEMOGLOBIN 26 PG (26.0-33.0); MEAN CORPUSCULAR HGB CONC 32 g/dl (31.0-36.0); MEAN CORPUSCULAR VOLUME 81 fL (82-100); MONOCYTES # (AUTO) 0.4 /CMM (0.1-1.30); MONOCYTES % (AUTO) 8.4 % (2.0-12.0); NEUTROPHILS # (AUTO) 2.2 /CMM (1.8-8.9); NEUTROPHILS % (AUTO) 41.7 % (43.0-81.0); PLATELET COUNT (AUTO) 301 /CMM (150-450); RDW COEFFICIENT OF VARIATION 18.2 (11.5-15.0); RED BLOOD CELL COUNT(AUTO) 3.86 MIL/uL (4.0-5.2); WHITE BLOOD COUNT (AUTO) 5.3 K/uL (4.3-11.0)
[2017-01-12 07:42] LABS: CALCIUM, SERUM 9.9 mg/dL (8.5-10.1); CREATININE 0.5 mg/dL (0.6-1.3); MAGNESIUM 1.9 mg/dL (1.8-2.4); PHOSPHORUS 3.8 mg/dL (2.5-4.9); POTASSIUM 3.6 mmol/L (3.5-5.1)
[2017-01-12 07:52] VITALS: BP 108/77
--- NOTE | 2017-01-12 10:00 | NUR ---
Seen by Dr. Macario. Relayed lab results to him. No new order.
--- NOTE | 2017-01-12 10:55 | NUR ---
Informed sister Judith that armored car guard Dr. Monsivais will be coming to see resident. Appreciated the information.
--- NOTE | 2017-01-12 13:08 | NUR ---
Received order to DC OT 3 times weekly for bilateral upper extremities orthosis for contracture management. Pt not being seen by OT anymore, confirmed with ELIZABETH Pardo. Also received clarification of order for RNA to apply bilateral hand splints Wednesday through Wednesday instead of daily.
--- NOTE | 2017-01-12 16:00 | NUR ---
Seen by Dr. Garzon. He ordered to apply Ketoconazole 2% cream to all toes daily x 30 days. Notified Judith.
--- NOTE | 2017-01-12 19:08 | NUR ---
Monitored Left and right eyes for infection: no S/S of infection, no redness and no drainage noted. kept both eyes clean and dry, good eye care rendered.
[2017-01-12 20:22] VITALS: BP 95/59
[2017-01-13 07:40] VITALS: BP 109/76
[2017-01-13 20:13] VITALS: BP 104/54
[2017-01-14 07:46] VITALS: BP 101/77
--- NOTE | 2017-01-14 19:18 | NUR ---
Bilateral eyes; no s/s of infection, no drainage, no redness noted, kept dry and clean, good eyecare rendered.
[2017-01-14 20:20] VITALS: BP 108/58
--- NOTE | 2017-01-15 05:54 | NUR ---
PT BILATERAL EYES,NO REDNESS,NO DRAINAGE ANY S/S OF INFECTION.GOOD EYE CARE PROVIDED.WILL CONTINUE TO MONITOR.
[2017-01-15 07:39] VITALS: BP 98/72
--- NOTE | 2017-01-15 19:18 | NUR ---
Bilateral eyes; no s/s of infection, no redness, no discharges noted, good eyecare done.
[2017-01-15 19:50] VITALS: BP 93/60
--- NOTE | 2017-01-16 06:37 | NUR ---
Pt both eyes no redness,no drainage noted.Will continue to monitor.
[2017-01-16 07:35] VITALS: BP 101/59
--- NOTE | 2017-01-16 19:40 | NUR ---
During the [id number] shift today, OU condition observed/assessed secondary to MRSA, noted clear, no discharges, no redness. Contact isolation observed. Eye care provided the whole shift. Charge Nurse made aware of condition.
[2017-01-16 20:15] VITALS: BP 99/59
[2017-01-17 07:36] VITALS: BP 98/57
[2017-01-18 07:35] VITALS: BP 133/84
[2017-01-18 19:51] VITALS: BP 96/65
[2017-01-19 07:43] VITALS: BP 111/69
--- NOTE | 2017-01-19 17:43 | NUR ---
Pt was seen today by Dr. Macario. Pt has no more eye discharge or redness. Dr. Macario said MRSA in the eyes is colonized and contact isolation may be DC'd. Notified pt's sister Judith. Addendum: 01/19/17 at 1746 by MIGUELANGEL REEDER RN Pt has completed antibiotic treatments for MRSA eyes.
[2017-01-19 20:11] VITALS: BP 103/53
[2017-01-20 07:49] VITALS: BP 93/68
--- NOTE | 2017-01-20 18:50 | NUR ---
Seen and examined by Cm Tenorio NP, for Dr. Macario no new order given at this time.
[2017-01-20 20:10] VITALS: BP 100/59
[2017-01-21 07:45] VITALS: BP 96/63
--- NOTE | 2017-01-21 11:45 | NUR ---
RT MONTHLY TRACH CHANGE DONE WITH NEW SHILEY 6 XLT DISTAL CUFFED TRACH. PT IS AWAKE BUT DOES NOT FOLLOW COMMANDS. TRACH CHANGE DONE WITH NO COMPLICATIONS. MINIMAL BLEEDING AT TRACH SITE WITH NO REDNESS. EQUAL BILATERAL BREATHE SOUNDS AND CHEST RISE. NO SIGNS OF RESPIRATORY DISTRESS NOTED AT THIS TIME, WILL CONTINUE TO MONITOR. Addendum: 01/21/17 at 1205 by JAMISON BEATTY RT Amended: Links added.
--- NOTE | 2017-01-21 11:45 | NUR ---
RT MONTHLY TRACH CHANGE DONE WITH NEW SHILEY 6 XLT DISTAL CUFFED TRACH. PT IS AWAKE BUT DOES NOT FOLLOW COMMANDS. TRACH CHANGE DONE WITH NO COMPLICATIONS. MINIMAL BLEEDING AT TRACH SITE WITH NO REDNESS. EQUAL BILATERAL BREATHE SOUNDS AND CHEST RISE. NO SIGNS OF RESPRIATORY DISTRESS NOTED AT THIS TIME, WILL CONTINUE TO MONITOR.
[2017-01-21 20:01] VITALS: BP 109/62
[2017-01-22 07:50] VITALS: BP 116/84
--- NOTE | 2017-01-22 11:04 | NUR ---
Seen by Dr. Alfaro, reported that contact isolation (MRSA eye) has been discontinued due to absence of symptoms, no new order given.
--- NOTE | 2017-01-22 14:00 | NUR ---
INTERDISCIPLINARY PLAN OF CARE CONFERENCE was held today. Sister Judith attended via telephone conference Dr Macario and the interdisciplinary team reviewed the current plan of care in detail, as well as treatments and medication. Isolation had been discontinued and resident with no more redness in the eyes. [facility] shift lead will cover resident's eyes with a sleeping mask for the eyes to reduce dryness, as resident sleeps with her eyes open. No new orders. Sister appreciated the information.
[2017-01-22 19:52] VITALS: BP 103/62
[2017-01-23 08:23] VITALS: BP 106/64
[2017-01-23 09:30] VITALS: BP 105/57
[2017-01-23 10:30] VITALS: BP 101/62
--- NOTE | 2017-01-23 15:30 | NUR ---
Received resident with low grade T this AM 100.1, with heating blanket on and HR 130-140. Immediately removed heating blanket, rechecked T after 1hour T 99.1, HR 120. After AM care, patient's HR 91, T97.4. Notified NIKI Ashford, ID of the low grade temp. with new order to do CBC to determine if is is a true infection. Left a message to Judith Frias's joeugther regarding above information.
[2017-01-23 17:19] LABS: BASOPHILS # (AUTO) 0.1 /CMM (0.0-0.2); BASOPHILS % (AUTO) 0.7 % (0.0-2.0); EOSINOPHILS # (AUTO) 0.1 /CMM (0.0-0.7); EOSINOPHILS % (AUTO) 1.2 % (0.0-6.0); HEMATOCRIT 31 % (33-45); HEMOGLOBIN 9.9 g/dL (11.5-14.8); LYMPHOCYTES # (AUTO) 2.9 /CMM (0.8-4.8); LYMPHOCYTES % (AUTO) 34.4 % (20.0-44.0); MEAN CORPUSCULAR HEMOGLOBIN 26 PG (26.0-33.0); MEAN CORPUSCULAR HGB CONC 32 g/dl (31.0-36.0); MEAN CORPUSCULAR VOLUME 81 fL (82-100); MONOCYTES # (AUTO) 0.7 /CMM (0.1-1.30); MONOCYTES % (AUTO) 8.3 % (2.0-12.0); NEUTROPHILS # (AUTO) 4.6 /CMM (1.8-8.9); NEUTROPHILS % (AUTO) 55.4 % (43.0-81.0); PLATELET COUNT (AUTO) 174 /CMM (150-450); RDW COEFFICIENT OF VARIATION 19.5 (11.5-15.0); RED BLOOD CELL COUNT(AUTO) 3.84 MIL/uL (4.0-5.2); WHITE BLOOD COUNT (AUTO) 8.4 K/uL (4.3-11.0)
[2017-01-23 20:03] VITALS: BP 95/66
[2017-01-24 07:43] VITALS: BP 103/67
--- NOTE | 2017-01-24 16:00 | NUR ---
noted with sacrococcyx open skin.treatment initiated with tripple antibiotic and mepilex for 14 days then re eval.continue to monitor.family notified spoke to garry.
[2017-01-24 19:57] VITALS: BP 98/62
[2017-01-25 12:45] VITALS: BP 112/59
[2017-01-25 19:50] VITALS: BP 105/62
[2017-01-25 20:00] VITALS: BP 105/62
[2017-01-26 07:56] VITALS: BP 101/55
--- NOTE | 2017-01-26 11:01 | NUR ---
WOUND CARE CONSULT: PT SEEN FOR GLUTEAL CREASE EXCORIATION WHICH IS MOISTURE RELATED. RECOMMENDATIONS DISCUSSED WITH NURSING STAFF FOR Z GUARD AND MEPILEX. SKIN TO BE KEPT CLEAN AND DRY. PT IS INCONTINENT. WILL SEE PRN. IN AGREEMENT WITH PLAN OF CARE. PT REMAINS ON FIRST STEP MATTRESS. ALL SKIN PROTECTION MEASURES IN PLACE.
--- NOTE | 2017-01-26 11:05 | NUR ---
Pt was seen by wound nurse Fransisca. Received order to DC treatment for sacrococcyx open skin and initiate treatment for gluteal crease excoriation.
[2017-01-26 19:58] VITALS: BP 100/56
[2017-01-27 07:55] VITALS: BP 105/56
--- NOTE | 2017-01-27 10:45 | NUR ---
STUDENT RECORDS COORDINATOR assigned called this nurse to the shower room that patient has an unassisted fall in the shower room. Went to assess patient and noted patient on the shower room floor in a prone position with shower bed and STUDENT RECORDS COORDINATOR assigned next to patient. Asked STUDENT RECORDS COORDINATOR what happened. STUDENT RECORDS COORDINATOR stated that while giving shower to patient and had her on lateral position, she grabbed her supply used for showering patient. While she was also next to the patient and shower bed, shower bed against the wall patient had an episode of cough reflex, and continued coughing became very stiff and patient slid and that she was not able to catch her when she attempted to. Asked patient what happened and patient unable to respond due to diagnosis and condition. Assisted patient to a supine position by nursing staff, noted with eyes open with blink reflex, slight redness to forehead and minimal blood on the upper lip. Tracheostomy in place attached to cool aerosol at 5 liters O2. Noted with right forearm redness and scratch. Assisted back to shower bed by nursing staff with fracture precautions at all times. Transferred back to bed. No further skin abnormalities noted. No further skin breakdown. Neurochecks initiated. Ice pack applied to affected areas. No sign and symptoms of pain or discomfort noted at this time. Left a message to Dr. Alfaro and Dr. Macario awaiting for orders.
--- NOTE | 2017-01-27 11:45 | NUR ---
Spoke with Judith, sister to notify her of the fall and new order. At this time, Dr. Macario ordered to do CT scan of the head without contrast and Xray of the R FA, stat. Order noted and carried out.
--- NOTE | 2017-01-27 12:20 | NUR ---
Dr. Alfaro seen the patient. He ordered to add CT of the cervical spine and bilateral hips Xray. Order noted and carried out.
--- NOTE | 2017-01-27 12:50 | NUR ---
Returned back from CT scan, accompanied by RT and tech. Resident stable in no s/s of respiratory distress/discomfort. Continue to do neurocheck. Frequent visual round done.
--- NOTE | 2017-01-27 15:25 | NUR ---
Incident report was completed.
--- NOTE | 2017-01-27 16:15 | NUR ---
Resident visited by another sister. Spoke with Judith on the phone and updated her on patient's condition and result of the CT scan and Xray. She requested patient to have a trach mask so she can cough off her secretions. Endorsed to continue to observe for any changes. V/S stable.
[2017-01-27 19:41] VITALS: BP 121/66
--- NOTE | 2017-01-28 06:04 | NUR ---
Pt remains stable during the night,neuro check done q 4 hrs ,no changes in LOC.Right upper arm abrasion with treatment of triple atb q shift x 7 days,swollen and with discoloration,will continue to monitor.
[2017-01-28 07:52] VITALS: BP 97/66
[2017-01-28 19:37] VITALS: BP 103/62
[2017-01-29 07:32] VITALS: BP 94/58
--- NOTE | 2017-01-29 11:30 | NUR ---
Notified Dr. Macario patient with temperature of 100.6 last night and at this time 98.0. Asked if he wants to order CBC, according to MD, not at this time, only when she spike temperature. Endorsed.
--- NOTE | 2017-01-29 12:30 | NUR ---
Patient's sister Bree at the bedside, she was on the phone with Judith. She requested to speak with this nurse regarding patient's condition. Judith updated of patient's condition. Patient is stable, no further bleeding in the mouth, R arm still swollen and puirplish discoloration becoming visible. Continue to do neurocheck with stable VS.
[2017-01-29 19:35] VITALS: BP 123/68
[2017-01-30 07:42] VITALS: BP 125/59
[2017-01-30 19:42] VITALS: BP 147/64
[2017-01-31 07:42] VITALS: BP 99/55
--- NOTE | 2017-01-31 09:20 | NUR ---
Seen and examined by Dr. Macario, aware of the swelling and discoloration of the R forearm, Informed MD that CT scan and radiology report done on 01/27 shows no fracture with indication nondisplaced fracture cannot be excluded. Dr. Macario said he will take a look at it.
[2017-01-31 22:18] VITALS: BP 112/70
[2017-02-01 08:07] VITALS: BP 108/94
--- NOTE | 2017-02-01 09:15 | NUR ---
Seen by Dr. Macario. Notified him that pt's G-tube was clogged and it was replaced right before he came to see the pt. Pt's abdomen also distended. Received order to do KUB. Dr. Macario also ordered to repeat right elbow and right forearm x-rays.
[2017-02-01 19:59] VITALS: BP 97/68
[2017-02-02 08:04] VITALS: BP 92/78
--- NOTE | 2017-02-02 09:00 | NUR ---
LIZANDRO informed by charge nurse that resident in need of ortho consult. Faxed referral to the office of Leandro Valles M.D. [address] [facility]. [address] [place] [address] . LIZANDRO will follow up. Addendum: 02/02/17 at 1021 by TOO BONE Called the office and spoke to Diana. She gathered resident's information and stated she will give referral to the PA to come and see the resident. charge nurse informed.
--- NOTE | 2017-02-02 12:00 | NUR ---
Pt was seen by Patricia Sesay. He said he already reviewed pt's x-ray results. No new order.
[2017-02-02 20:00] VITALS: BP 92/71
[2017-02-03 07:58] VITALS: BP 107/58
[2017-02-03 19:59] VITALS: BP 127/67
[2017-02-04 07:40] VITALS: BP 110/66
--- NOTE | 2017-02-04 12:39 | NUR ---
Pt's right forearm appears more swollen than before and pt grimacing when right forearm is moved. Pt was given Tylenol earlier this morning for pain, HR was 132. HR improved to 95 and pt appeared more comfortable. Pt also has increased secretions but afebrile. Notified Dr. Macario. He said to call ortho. Paged EMILY Sesay. Left message with Janell.
--- NOTE | 2017-02-04 12:48 | NUR ---
EMILY Sesay called. Notified him that pt's right forearm appears more swollen and pt looks like she is in pain when it is moved, Tylenol relieved the pain. Received order to do Doppler ultrasound on the right upper extremity. He also said to apply ice/cold compresses on the right arm. Notified Judith.
--- NOTE | 2017-02-04 17:00 | NUR ---
Pt's mother Maida came to visit with another relative. Judith called and said pt has new bruises according to her mother's report to her. She requested charge nurse to come to the pt's room while she and her mother are talking to each other on the phone. Judith said that the bruises do not look the same as when the pt first had them. Explained to her that bruises change in color and appearance, that they look darker compared to when the pt fell. She insists that pt is "continually being hurt by the staff" and that pt has new bruises. Explained to her and her mother that the bruises appear dark green and purplish, but the larger area that might appear like a new bruise is actually the redness and swelling on the right forearm. She was upset saying that she was told all the x-rays and CT scan results were fine, and now another CT is being ordered. Charge nurse explained to her that she told her it was an ultrasound that was going to be done, not a CT. Explained to her that the Doppler ultrasound will be able to determine if a pt has a blood clot that might be causing the swelling. She said she wants the primary doctor to see the pt and make any recommendations. She also said that she will come on Wednesday02/06/17, she will take a look at the pictures on file and discuss her concerns in the IDT meeting.
--- NOTE | 2017-02-04 18:39 | NUR ---
Pt's right knee appears swollen. Called Dr. Alfaro's office, Dr. Espinoza is long chain dyeing machine operator. Spoke with Rica. She said she will page Dr. Espinoza.
--- NOTE | 2017-02-04 18:47 | NUR ---
Dr. Espinoza called. Notified him that pt's right knee is swollen. Received order to do right knee x-ray. Notified Judith.
[2017-02-04 19:58] VITALS: BP 104/62
[2017-02-05 07:49] VITALS: BP 129/72
--- NOTE | 2017-02-05 10:16 | NUR ---
Xray of the R knee done. Left a message to Dr. Alfaro regarding result, no acute fracture or dislocation is seen. Also place a call to EMILY Sesay' office (ortho) to relay result.
--- NOTE | 2017-02-05 10:35 | NUR ---
Spoke with EMILY Sesay, reported R knee Xray result and result of R upper arm doppler study, no evidence of DVT. NNO given at this time. stated to continue applying ice pack in the affected area.
--- NOTE | 2017-02-05 11:00 | NUR ---
Dr. Walsh aware of the R knee xray result, stated that it is an old fracture. MD seen and assess patient's R FA swelling and discoloration, informed him that Doppler US was done and negative for DVT. Dr. walsh said it is a contusion, will continue to apply ice pack and elevate upper extremity with pillows to decrease swelling.
--- NOTE | 2017-02-05 16:00 | NUR ---
Called Judith, sister and gave an update on patient's condition including result of the R knee Xray. Patient's attending physician, Dr. Alfaro has seen and assess patient's R FA swelling and discoloration. According to resident's sister, the discoloration is more compared to the initial picture when she fell. Explained to Judith that it usually take a couple of days before the discoloration/bruising to fully shows up and will take even longer to subside. She said that she understands all that, but thinks that staff is not handling her carefully. Assured her that patient is handled with 2 person assist. She said she will visit her tomorrow.
[2017-02-05 19:44] VITALS: BP 99/60
[2017-02-06 08:09] VITALS: BP 101/74
[2017-02-06 19:51] VITALS: BP 106/65
[2017-02-07 07:38] VITALS: BP 98/76
[2017-02-07 19:27] VITALS: BP 98/61
[2017-02-08 08:16] VITALS: BP 93/55
[2017-02-08 19:54] VITALS: BP 97/56
[2017-02-08 22:00] VITALS: BP 109/66
[2017-02-09 08:00] VITALS: BP 97/57
--- NOTE | 2017-02-09 10:00 | NUR ---
Pt's right forearm is still swollen. Received order to hold application of right hand splint until swelling subsides.
[2017-02-09 19:48] VITALS: BP 100/64
[2017-02-10 20:13] VITALS: BP 106/58
[2017-02-11 07:31] VITALS: BP 96/66
[2017-02-11 19:55] VITALS: BP 98/64
[2017-02-12 08:34] VITALS: BP 107/69
--- NOTE | 2017-02-12 13:40 | NUR ---
IDT meeting held, IDT team reviewed medications, new orders, treatments and radiology report/labs. Family unable to attend. New order obtain from Dr. Macario for routine Senna due to episode of constipation. All orders noted and carried out.
--- NOTE | 2017-02-12 18:30 | NUR ---
Seen and examined by Coby Pabon NP, NNO given at this time.
[2017-02-12 20:00] VITALS: BP 93/68
[2017-02-13 07:36] VITALS: BP 99/57
--- NOTE | 2017-02-13 18:45 | NUR ---
Resident noted with small amount of emesis brownish color approx 20-30 ml, Suctioned trach, secretions clear, no s/s of aspiration. Resident had 2 large BM last night, abdomen soft. Endorsed to incoming shift to administer PRN Zofran.
[2017-02-13 19:47] VITALS: BP 98/70
--- NOTE | 2017-02-14 06:32 | NUR ---
Patient asleep throughout the night, no SOB noted no s/sx acute respiratory distress noted. Further assessment made. No emesis noted during this shift. HOB elevated for aspiration precautions. Suctioned secretions as ordered, tolerated well. No manifestation of pain or discomfort. GT feeding patent and intact no residuals noted. Abdomen soft and non-distended. Resident made comfortable. Kept clean and dry. Needs met and attended. Will continue to monitor.
[2017-02-14 07:48] VITALS: BP 142/84
[2017-02-14 19:46] VITALS: BP 148/78
[2017-02-15 08:20] VITALS: BP 104/58
--- NOTE | 2017-02-15 20:00 | NUR ---
RN NOTES Noted with rash/redness to left side of neck. Received new order from Dr. Macario, noted and carried out. Mother at bedside and notified of new order.
[2017-02-15 20:13] VITALS: BP 97/68
[2017-02-16 07:22] LABS: BASOPHILS % (AUTO) 0.2 % (0.0-2.0); EOSINOPHILS # (AUTO) 0.2 /CMM (0.0-0.7); EOSINOPHILS % (AUTO) 2.5 % (0.0-6.0); HEMATOCRIT 30 % (33-45); HEMOGLOBIN 9.6 g/dL (11.5-14.8); LYMPHOCYTES # (AUTO) 1.9 /CMM (0.8-4.8); LYMPHOCYTES % (AUTO) 29.3 % (20.0-44.0); MEAN CORPUSCULAR HEMOGLOBIN 26 PG (26.0-33.0); MEAN CORPUSCULAR HGB CONC 32 g/dl (31.0-36.0); MEAN CORPUSCULAR VOLUME 82 fL (82-100); MONOCYTES # (AUTO) 0.5 /CMM (0.1-1.30); MONOCYTES % (AUTO) 7.4 % (2.0-12.0); NEUTROPHILS % (AUTO) 60.6 % (43.0-81.0); PLATELET COUNT (AUTO) 241 /CMM (150-450); RDW COEFFICIENT OF VARIATION 18.5 (11.5-15.0); RED BLOOD CELL COUNT(AUTO) 3.68 MIL/uL (4.0-5.2); WHITE BLOOD COUNT (AUTO) 6.6 K/uL (4.3-11.0)
[2017-02-16 07:42] VITALS: BP 100/69
[2017-02-16 07:43] LABS: CALCIUM, SERUM 10.2 mg/dL (8.5-10.1); CREATININE 0.4 mg/dL (0.6-1.3); MAGNESIUM 2.4 mg/dL (1.8-2.4); PHOSPHORUS 3.8 mg/dL (2.5-4.9); POTASSIUM 3.9 mmol/L (3.5-5.1)
[2017-02-16 19:37] VITALS: BP 108/61
[2017-02-17 07:51] VITALS: BP 114/49
[2017-02-17 20:40] VITALS: BP 127/80
[2017-02-18 07:45] VITALS: BP 102/66
[2017-02-18 20:02] VITALS: BP 98/59
--- NOTE | 2017-02-18 21:00 | NUR ---
Pt noted with left lower eye discoloration reddish with slight swelling,no open skin.Apply cold compress for 15 minutes q 6 hrs x 3 days.Will continue to monitor.
[2017-02-19 07:44] VITALS: BP 99/56
[2017-02-19 19:52] VITALS: BP 129/70
--- NOTE | 2017-02-20 04:30 | NUR ---
Pt noted with X 1 emesis feeding color approx 100 cc, hob elevated , sx'd pt's trach and mouth, no sob noted, monitor pt for s/sx of aspiration, gastric residual 20 cc gt feeding color, pt's last bm noted 02-19-17, Prn Zofran 4 mg given via gt with h20 flush, supercharge repair supervisor nurse at , assessed pt. Will continue to monitor pt.
[2017-02-20 04:58] VITALS: BP 127/59
--- NOTE | 2017-02-20 06:58 | NUR ---
NO MORE EMESIS NOTED, PT AWAKE AND CALM, NO RESPIRATORY DISTRESS NOTED,NO FACIAL GRIMACING, PRN DULCOLAX SUPP GIVEN 35 MINS AGO EFFECTIVE WITH EXTRA LARGE SOFT DARK BROWN BM, COMPLETE AM CARE PROVIDED, TRACH TIE AND TRACH MASK CHANGED PRN D/T SOILED, NO S/SX OF ASPIRATION NOTED. HOB KEPT ELEVATED, ALL SAFETY AND COMFORT MEASURES NOTED. WILL ENDORSE CONTINUE OF CARE TO AM ONCOMING NURSE.
[2017-02-20 07:36] VITALS: BP 112/52
--- NOTE | 2017-02-20 14:02 | NUR ---
Place a call to Dr. Alfaro's office, requested to speak to doctor hospital television rental clerk (Dr. Mckenzie) to report patient with episode of vomiting from last night. Awaiting for MD to call back. No episode of vomiting this shift.
--- NOTE | 2017-02-20 15:15 | NUR ---
Notified Judith (sister) on the phone that resident with episode of vomiting, antiemetic Zofran given as ordered. Patient had large BM today and yesterday. She was also made aware that patient have L eye discoloration which was first observed yesterday and more pronounced today, non tender to touch. Patient had a shower in the shower room with two person assist & utilized Donal lift transfer. Tonya also inform that we run out of [place] 3 fish oil that family provides, she said she knows about it but looking for the invoice where she originally purchased it online. She expressed appreciation of the update in patient's condition.
--- NOTE | 2017-02-20 17:45 | NUR ---
Placed another call to Dr. Edwards at 5PM instructor of education for Dr. Alfaro (spoke with Dillan), to follow-up and report episode of vomiting early this morning including formula like secretions obtain from tracheal suctioning. Left a message to Dr. Macario regarding above since no response received from instructor of education. Awaiting for Dr. Macario's response.
--- NOTE | 2017-02-20 18:42 | NUR ---
No episode of emesis this shift. Pt had BM today. Pt still with distended abdomen, notified charge nurse and MD. Order obtained from Dr. Macario for KUB and chest xray.
[2017-02-20 19:56] VITALS: BP 101/74
--- NOTE | 2017-02-21 07:30 | NUR ---
Resident is alert.no SOB no distress noted.warehouse order puller nurse reported that resident is monitoring for abdominal distention and vomiting.waiting for x ray of abdominal and chest.assessment done.vital signs stable.no vomiting noticed .bowel sounds are active.and last day of BM was 02/20/2017.continue to monitor.
[2017-02-21 09:25] VITALS: BP 91/60
--- NOTE | 2017-02-21 10:00 | NUR ---
Resident has one episode of vomiting.G tube feeding noticed on vomiting.suction done.no signs and symptoms of aspiration noticed.tracheal secretions are clear.no fever noticed.continue to monitor.
--- NOTE | 2017-02-21 10:55 | NUR ---
Received the x ray result.x ray shows that stomach filled with G tube feeding.no residual received.relayed to ,transportation security screener DR corinna Burnett.got an order to transfer to ER.noted and carried out.call made to ER spoke to lv and given report regarding transfer.call made to sister garry and made her aware about transfer and reason for transfer.no SOB no distress noticed.stomach is still distended.
--- NOTE | 2017-02-21 11:44 | NUR ---
Resident transferred out to ER with charge nurse and DISABILITY RATER.report given to ER nurse with advance directive,H&P,labs,x ray,current medication list.house coordinator notified.
[2017-02-21] MEDS ORDERED: BISA10SU8 RC (12:53)
[2017-02-21] MEDS ORDERED: ONDA4TAB8 GT (12:53)
[2017-02-21] MEDS ORDERED: POTA20TA83 GT (12:53)
[2017-02-21] MEDS ORDERED: NUTR100037 GT (12:53)
[2017-02-21] MEDS ORDERED: LACT10SO GT (12:53)
[2017-02-21] MEDS ORDERED: SENN8.6T6 GT (12:53)
[2017-02-21] MEDS ORDERED: FURO40SO2 GT (12:53)
[2017-02-21] MEDS ORDERED: FAMO20TA8 GT (12:53)
--- NOTE | 2017-02-22 12:25 | NUR ---
Informed resident's sister that resident is currently on a 7 day bed hold effective start date of 02/21/2017 as this was when resident was transferred to the ER. Appreciated the information given and stated she was waiting for telemetry to call her with information regarding GI consult.
== END 2017-03-01 16:00 | disposition short-term general hospital (02) | DRG 130 ==
LOC: SA
PROVIDERS: ADMIT Internal Medicine Nephrology; ATTEND Internal Medicine Nephrology
PROC: 5A1955Z Respiratory Ventilation, Greater than 96 Consecutive Hours (ICD-10-PCS; principal; 2016-05-31)
DX: J96.11 Chronic respiratory failure with hypoxia (principal); G93.1 Anoxic brain damage, not elsewhere classified; D69.59 Other secondary thrombocytopenia; E87.0 Hyperosmolality and hypernatremia; K92.2 Gastrointestinal hemorrhage, unspecified; L03.115 Cellulitis of right lower limb; J96.21 Acute and chronic respiratory failure with hypoxia; M84.451A Pathological fracture, right femur, initial encounter for fracture; M84.48XA Pathological fracture, other site, initial encounter for fracture; E83.52 Hypercalcemia; R13.10 Dysphagia, unspecified; D63.8 Anemia in other chronic diseases classified elsewhere; I25.10 Atherosclerotic heart disease of native coronary artery without angina pectoris; E87.6 Hypokalemia; Z99.11 Dependence on respirator [ventilator] status; Z87.01 Personal history of pneumonia (recurrent); Z87.440 Personal history of urinary (tract) infections; G40.909 Epilepsy, unspecified, not intractable, without status epilepticus; S90.512A Abrasion, left ankle, initial encounter; X58.XXXA Exposure to other specified factors, initial encounter; Y93.9 Activity, unspecified; Y92.129 Unspecified place in nursing home as the place of occurrence of the external cause; Z93.0 Tracheostomy status; H10.89 Other conjunctivitis; B95.62 Methicillin resistant Staphylococcus aureus infection as the cause of diseases classified elsewhere; B35.2 Tinea manuum; L60.8 Other nail disorders; L97.519 Non-pressure chronic ulcer of other part of right foot with unspecified severity; E83.42 Hypomagnesemia; R21 Rash and other nonspecific skin eruption; S50.11XA Contusion of right forearm, initial encounter; B35.1 Tinea unguium; L97.529 Non-pressure chronic ulcer of other part of left foot with unspecified severity; K59.00 Constipation, unspecified; F09 Unspecified mental disorder due to known physiological condition; J44.9 Chronic obstructive pulmonary disease, unspecified; L60.0 Ingrowing nail; L97.329 Non-pressure chronic ulcer of left ankle with unspecified severity
CPT/HCPCS: 31720; 36415; 70450-TC; 71010-TC; 72125-TC; 73070-TC; 73090-TC; 73521; 73560-TC; 73564-TC; 73700-TC; 74000-TC; 80048-TC; 80053-TC; 80076-TC; 80202-TC; 82248-TC; 82272-TC; 82550-TC; 82565-TC; 82728-TC; 82962-TC; 83540-TC; 83735-TC; 83970; 84100-TC; 84155; 84165; 84520-TC; 85025-TC; 86580-TC; 87070-TC; 87186-TC; 93971-TC; 94640-TC; 94762-TC; 94799-TC; 97003-TC; 97110-TC; 97760-TC; A4606; A4623; A6248; A6253; A6402; A7526; J2704; J3370; J7030; J7060; Q0162; Q9963; Z7610

== ENCOUNTER 2017-02-21 11:39 | Inpatient (IN) | payer OTHER ==
[2017-02-20 22:00] VITALS: BP 99/77
[~2017-02-21] VITALS: Ht 165.1 cm; Wt 83.9 kg
--- NOTE | 2017-02-21 11:45 | NUR ---
PATIENT CAME FROM SUBACUTE FOR VOMITING, ABDOMINAL DISTENSION, R/O SBO. PATIENT CAME IN WITH TRACH BUT NO VENT, PT IS ON TRACH MASK AT 8L/MIN. SKIN IS WARM. RESP IS EVEN AND UNLABORED WITH NAD NOTED. DR MENDEZ AT BS FOR EVAL.
[2017-02-21] MEDS ORDERED: MEROPENEM 1,000 MG in IV NS 0.9% 100 ML IV ONE (12:00)
[2017-02-21] MEDS ORDERED: ONDANSETRON HCL/PF 4 MG/2 ML VIAL IVP ONE (12:00)
[2017-02-21 12:08] LABS: BASOPHILS % (AUTO) 0.1 % (0.0-2.0); EOSINOPHILS % (AUTO) 0.6 % (0.0-6.0); HEMATOCRIT 33 % (33-45); HEMOGLOBIN 10.2 g/dL (11.5-14.8); LYMPHOCYTES # (AUTO) 1.3 /CMM (0.8-4.8); LYMPHOCYTES % (AUTO) 19.9 % (20.0-44.0); MEAN CORPUSCULAR HEMOGLOBIN 25 PG (26.0-33.0); MEAN CORPUSCULAR HGB CONC 31 g/dl (31.0-36.0); MEAN CORPUSCULAR VOLUME 81 fL (82-100); MONOCYTES # (AUTO) 0.4 /CMM (0.1-1.30); MONOCYTES % (AUTO) 6.2 % (2.0-12.0); NEUTROPHILS # (AUTO) 4.9 /CMM (1.8-8.9); NEUTROPHILS % (AUTO) 73.2 % (43.0-81.0); PLATELET COUNT (AUTO) 181 /CMM (150-450); RDW COEFFICIENT OF VARIATION 19.6 (11.5-15.0); RED BLOOD CELL COUNT(AUTO) 4.05 MIL/uL (4.0-5.2); WHITE BLOOD COUNT (AUTO) 6.7 K/uL (4.3-11.0)
[2017-02-21] MEDS ORDERED: ONDANSETRON HCL/PF 4 MG/2 ML VIAL ONE (12:11)
[2017-02-21 12:18] LABS: CREATININE 0.4 mg/dL (0.6-1.3); POTASSIUM 4.7 mmol/L (3.5-5.1)
[2017-02-21 12:26] LABS: APPEARANCE,URINE CLOUDY (CLEAR); BILIRUBIN,URINE NEGATIVE (NEGATIVE); BLOOD, URINE 3+ Ery/uL (NEGATIVE); COLOR,URINE YELLOW (YELLOW); KETONES,URINE NEGATIVE (NEGATIVE); LEUKOCYTE ESTERASE ,URINE NEGATIVE (NEGATIVE); NITRITE, URINE NEGATIVE (NEGATIVE); PH,URINE 5.5 (5.0-8.0); PROTEIN,URINE NEGATIVE (NEGATIVE); UGLUCOSE NEGATIVE (NEGATIVE); UROBILINOGEN,URINE 0.2 EU/dL (0.2)
[2017-02-21 12:26] LABS: BILIRUBIN,TOTAL 0.2 mg/dL (0.2-1.0); TOTAL PROTEIN, SERUM 9.3 g/dL (6.4-8.2)
[2017-02-21 12:35] LABS: BACTERIA,URINE Few /HPF (None Seen); SQUAMOUS EPITHELIAL CELL,UR Moderate /HPF (None Seen); WBC,URINE 0-2 /HPF (0-3)
[2017-02-21] MEDS ORDERED: FURO40SO2 GT (12:53)
[2017-02-21] MEDS ORDERED: BISA10SU8 RC (12:53)
[2017-02-21] MEDS ORDERED: LACT10SO GT (12:53)
[2017-02-21] MEDS ORDERED: ONDA4TAB8 GT (12:53)
[2017-02-21] MEDS ORDERED: SENN8.6T6 GT (12:53)
[2017-02-21] MEDS ORDERED: FAMO20TA8 GT (12:53)
[2017-02-21] MEDS ORDERED: NUTR100037 GT (12:53)
[2017-02-21] MEDS ORDERED: POTA20TA83 GT (12:53)
--- NOTE | 2017-02-21 13:24 | NUR ---
1ST ATTEPT TO CALL FOR REPORT, SOMEHOW, NO NURSE ASSIGNED FOR THE PATIENT AT THIS TIME. JACK, CHARGE NURSE MADE AWARE.
--- NOTE | 2017-02-21 14:37 | NUR ---
REPORT GIVEN TO RONEY WOOD FOR KATRIN TELE [id number]
[2017-02-21 15:00] VITALS: BP 103/66
--- NOTE | 2017-02-21 15:00 | NUR ---
RN NOTE RECEIVED PT ON BED, ON MASK 8 L/MIN, OPENS EYES, DOES NOT FOLLOW COMMANDS, GENERALIZED EDEMA NOTED, SKIN COOL TO TOUCH, COVERED WITH COUPLE OF WARM BLANKETS, SKIN ASSESSED, SMALL REDNESSS IN GROIN/BREAST FOLDS IS NOTED, PT HAS EXTENDED EXTREMITIS, DOES NOT MOVE LIMBS, G TUBE CLAMPED IN PLACE, NG TUBE ON TO LIS, PT HAS COPIOUS LUNG SECRETIONS, SATURATION 100%, NO SOB NOTED, BP STABLE. PT ON SLOT MACHINE REPAIRER, SR, 80S. DR VILLA NOTIFIED AWAITING FOR ADMITTING ORDERS, SAFETY MEASURES IMPLEMENTED, CALL LIGHT WITHIN REACH, BED IN LOW AND LOCKED POSITION. WILL CONTINUE TO MONITOR.
[2017-02-21] MEDS ORDERED: ACETAMINOPHEN 650 MG/SUPP.RECT RC PRN (16:00)
[2017-02-21] MEDS ORDERED: ONDANSETRON HCL/PF 4 MG/2 ML VIAL IV PRN (16:00)
[2017-02-21] MEDS: IPRATROPIUM NEB FS 0.5 MG/2.5 ML AMPUL.NEB NEB SCH ×2 (16:30→19:06)
[2017-02-21] MEDS: ALBUTEROL FS 2.5 MG/0.5 ML VIAL.NEB NEB SCH ×2 (16:30→19:06)
[2017-02-21] MEDS: PANTOPRAZOLE 40 MG VIAL IV SCH (16:51)
[2017-02-21] MEDS: IV D5/0.45 NACL 1,000 ML IV PRN (16:51)
[2017-02-21 20:00] VITALS: BP 99/77
[2017-02-21] MEDS ORDERED: MEROPENEM 1 G VIAL IV ONE (21:24)
[2017-02-21] MEDS: Z GUARD REMEDY 4 OZ OINT TP SCH (21:29)
[2017-02-21] MEDS: MEROPENEM 1 G in IV NS 0.9% 100 ML IV SCH (21:29)
[2017-02-22] VITALS: BP 106/67
[2017-02-22] MEDS: IPRATROPIUM NEB FS 0.5 MG/2.5 ML AMPUL.NEB NEB SCH ×3 (02:01→13:27)
[2017-02-22] MEDS: ALBUTEROL FS 2.5 MG/0.5 ML VIAL.NEB NEB SCH ×4 (02:01→19:30)
[2017-02-22 04:00] VITALS: BP 107/63
[2017-02-22] MEDS ORDERED: MEROPENEM 1 G VIAL IV ONE (05:27)
[2017-02-22] MEDS: MEROPENEM 1 G in IV NS 0.9% 100 ML IV SCH ×3 (05:32→21:14)
[2017-02-22] MEDS: IV D5/0.45 NACL 1,000 ML IV PRN ×2 (06:22→16:45)
--- NOTE | 2017-02-22 06:43 | NUR ---
RN NOTE RECEIVED PT IN NO ACUTE DISTRESS IN BED. PT IS OBTUNDED, BUT OPENS EYES. PT IS ON COOL AEROSOL VIA TRACH. TRACH SITE IS CLEAN DRY AND INTACT. PT TOLERATING COOL AEROSOL WELL WITH O2 SAT @ 98%. PT HAS GTUBE THAT IS CLEAN DRY INTACT AND CLAMPED. PT HAS NG TUBE IN THE RIGHT NARE WITH LOW INTERMITTENT SUCTIONING WITH WHITE COLORED GASTRIC CONTENT. PT HAS RIGHT HAND 20G THAT IS CLEAN DRY INTACT AND PATENT WITH D51/2 NS@ 75ML/HR. PT DID NOT HAVE ANY SIGNIFICANT CHANGE IN CONDITION DURING SHIFT. WILL ENDORSE TO AM RN FOR CONTINUITY OF CARE.
[2017-02-22 07:25] LABS: BASOPHILS % (AUTO) 0.1 % (0.0-2.0); EOSINOPHILS % (AUTO) 0.2 % (0.0-6.0); HEMATOCRIT 31 % (33-45); HEMOGLOBIN 9.7 g/dL (11.5-14.8); LYMPHOCYTES # (AUTO) 0.5 /CMM (0.8-4.8); LYMPHOCYTES % (AUTO) 9.6 % (20.0-44.0); MEAN CORPUSCULAR HEMOGLOBIN 26 PG (26.0-33.0); MEAN CORPUSCULAR HGB CONC 32 g/dl (31.0-36.0); MEAN CORPUSCULAR VOLUME 82 fL (82-100); MONOCYTES # (AUTO) 0.3 /CMM (0.1-1.30); NEUTROPHILS % (AUTO) 83.1 % (43.0-81.0); PLATELET COUNT (AUTO) 163 /CMM (150-450); RDW COEFFICIENT OF VARIATION 18.5 (11.5-15.0); RED BLOOD CELL COUNT(AUTO) 3.76 MIL/uL (4.0-5.2); WHITE BLOOD COUNT (AUTO) 4.8 K/uL (4.3-11.0)
[2017-02-22 07:35] LABS: CALCIUM, SERUM 10.3 mg/dL (8.5-10.1); CREATININE 0.6 mg/dL (0.6-1.3); MAGNESIUM 1.6 mg/dL (1.8-2.4); PHOSPHORUS 3.4 mg/dL (2.5-4.9)
--- NOTE | 2017-02-22 07:43 | NUR ---
RN NOTES RECEIVED PT FROM PLASTICS FABRICATOR AND ASSEMBLER IN STABLE CONDITION, CHRONIC TRACH, ON COOL AEROSOL, NONVERBAL, OBTUNDED. ST ON THE TELE MONITOR HR 110S. R NARE NG TUBE TO INTERMITTENT SUCTION. GTUBE DRY AND CLAMPED NOT BEING USED. R HANG 20 GAUGE IV SITE IVF RUNNING AT 75ML/HR. HASSAN CATH DRAINING TO GRAVITY YELLOW COLORED URINE. CALL LIGHT WITHIN REACH, SIDE RAILS UPX3, BED LOCKED AND IN LOWEST POSITION WILL CONT TO MONITOR.
[2017-02-22 08:00] VITALS: BP 101/56
[2017-02-22] MEDS: Z GUARD REMEDY 2 OZ OINT TP PRN ×2 (08:59→09:00)
[2017-02-22] MEDS: PANTOPRAZOLE 40 MG VIAL IV SCH (08:59)
[2017-02-22] MEDS: Z GUARD REMEDY 4 OZ OINT TP SCH ×2 (09:00→21:15)
--- NOTE | 2017-02-22 09:54 | NUR ---
WOUND CARE CONSULT: PT PRESENTS WITH IMMOBILITY. PT ON FIRST STEP MATTRESS. G TUBE CLAMPED. ABDOMEN IS VERY LARGE. SACRAL AREA NOTED TO HAVE SCARRING AND STAINING. ALL SKIN PROTECTION MEASURES IN PLACE AND DISCUSSED WITH NURSING STAFF. WILL SEE PRN. REDDING IN AGREEMENT WITH PLAN OF CARE. Addendum: 02/22/17 at 0956 by REGINA PHAM WNDNU Amended: Links added.
[2017-02-22 10:03] LABS: BAND % (MANUAL) 16 % (0.0-5.0); EOSINOPHILS % (MANUAL) 2 % (0-4); LYMPHOCYTES % (MANUAL) 10 % (16-48); MONOCYTES % (MANUAL) 11 % (0-11.0); NEUTROPHILS % (MANUAL) 61 (42-76)
[2017-02-22 12:00] VITALS: BP 95/55
[2017-02-22] MEDS: Magnesium 1GM/D5W 100ML PREMIX 100 ML IV SCH ×2 (12:54→17:41)
--- NOTE | 2017-02-22 13:30 | NUR ---
RN NOTES SPOKE WITH DR MCDERMOTT FOR GI CONSULT, PT HAS BEEN NPO SINCE YESTERDAY, NOT SEEN BY GI. PER DR JUNIOR HE WILL SEE HER TODAY.
--- NOTE | 2017-02-22 15:08 | NUR ---
RN NOTES AFTER CLEANING PT HEART RATE WENT UP TO 160S, DR. YADAV PAGED NO ANSWER.
--- NOTE | 2017-02-22 15:13 | NUR ---
RN NOTES DR YADAV PAGED AGAIN, NO CALL BACK. VITALS HR 164 BP 162/76 O2 SAT 94 TEMP 100. RECTAL TYLENOL GIVEN.
--- NOTE | 2017-02-22 15:23 | NUR ---
RN NOTES SPOKE WITH DR YADAV REGARDING HR AT 160, NG TUBE DRAINAGE COLOR BEING PINK TINGED BROWN, AND FEVER OF 100.1. PER DR YADAV ONLY ORDER IS D5NS AT 100ML/HR, NO FURTHER ORDERS.
--- NOTE | 2017-02-22 15:46 | NUR ---
RN NOTES DR YADAV AT BEDSIDE, PT PUPILS LESS REACTIVE TO LIGHT, AWARE. ORDER FOR EKG. HR 150S. WILL CONT TO MONITOR. Addendum: 02/22/17 at 1548 by ALICIA PINEDA RN ACCORDING TO DR YADAV PT PUPILS ARE HER NORMAL.
[2017-02-22 16:00] VITALS: BP 162/76
[2017-02-22] MEDS ORDERED: IPRATROPIUM NEB FS 0.5 MG/2.5 ML AMPUL.NEB IH PRN (16:30)
[2017-02-22] MEDS ORDERED: ACETAMINOPHEN 650 MG/20.3 ML UDC GT PRN (16:30)
[2017-02-22] MEDS ORDERED: BISACODYL SUPP (10 MG) 10 MG/SUPP.RECT SUPP.RECT RC PRN (16:30)
--- NOTE | 2017-02-22 16:35 | NUR ---
RN NOTES AFTER BOLUS PT HR STILL 150S, DR YADAV AWARE, ABG ORDERED.
[2017-02-22 16:50] LABS: ABG BASE EXCESS 2.3 mmol/L; ABG PCO2 37.5 mmHg (35.0-45.0); ABG PH 7.461 (7.350-7.450); AaDO2 52.7 mmHg; COHb 0.3 % (0.5-1.5); MetHb 1.1 % (0.0-1.5); O2Hb 95.6 % (94.0-97.0); SITE, ABG Right Radial; VENT MODE, BG C/A 28%
[2017-02-22] MEDS: ONDANSETRON 4 MG TAB.RAPDIS GT SCH ×2 (17:00→21:00)
--- NOTE | 2017-02-22 17:15 | NUR ---
PT PLACED ON VENT S/P INCREASED WOB AND SECRETIONS. VENT ORDERS RECEIVED FROM DR HERNANDEZ AT BEDSIDE. AC 12 500 +5. CUFF INFLATED, BREATH SOUNDS EQUAL, RHONCHI, ETT PATENT AND SECURE. PT SX'ED AND LAVAGED PRN TO LARGE AMOUNTS OF THICK JOHN SECRETIONS. VENT ALARMS CHECKED AND AUDIBLE, VENT IN RED OUTLET. Addendum: 02/22/17 at 1742 by IFRAH AREVALO RT Amended: Links added.
--- NOTE | 2017-02-22 17:26 | NUR ---
RN NOTES PT PLACED ON VENT PER DR HERNANDEZ.
[2017-02-22] MEDS ORDERED: LACTULOSE 10 G/15 ML UDC (PYXIS) GT PRN (17:30)
[2017-02-22] MEDS ORDERED: POLYVINYL ALCOHOL 15 ML BOTTLE EACHEYE PRN (17:30)
[2017-02-22] MEDS: BACLOFEN (10 MG) 10 MG TABLET GT SCH (18:00)
--- NOTE | 2017-02-22 18:37 | NUR ---
RN NOTES PT HR 150S, EKG SHOWS SINUS. DR YADAV AWARE OF HR, NO NEW ORDERS. AWAITING GI CONSULT DR JUNIOR. LAST TEMP 99.0. IVF RUNNING. ON VENT NO SOB NOTED AT THIS TIME, SAT 96%, PT SUCTIONED. BED LOCKED AND IN LOWEST POSITION, CALL LIGHT WITHIN REACH, SIDE RAILS UPX3, WILL ENDORSE TO ONCOMING SHIFT.
[2017-02-22] MEDS: IPRATROPIUM NEB FS 0.5 MG/2.5 ML AMPUL.NEB IH SCH (19:30)
[2017-02-22 20:00] VITALS: BP 114/68
[2017-02-22] MEDS: MIDODRINE HCL (5MG) 5 MG TABLET GT SCH (21:00)
[2017-02-22] MEDS: MULTIVIT, IRON, MIN NO. 8, FA 1 TAB GT SCH (21:00)
[2017-02-22] MEDS: SENNOSIDES 8.6 MG TABLET GT SCH (21:22)
[2017-02-22] MEDS: FAMOTIDINE (20 MG) 20 MG TABLET GT SCH (21:22)
[2017-02-23] VITALS (7 sets, daily range): BP systolic 106–135; BP diastolic 55–82
[2017-02-23] MEDS: IPRATROPIUM NEB FS 0.5 MG/2.5 ML AMPUL.NEB IH SCH ×4 (01:30→19:52)
[2017-02-23] MEDS: ALBUTEROL FS 2.5 MG/0.5 ML VIAL.NEB NEB SCH ×4 (01:30→19:52)
--- NOTE | 2017-02-23 01:59 | NUR ---
RT MEDS HELD. PT HAS BEEN TACHYCARDIC. RN AWARE
[2017-02-23] MEDS: IV D5/0.45 NACL 1,000 ML IV PRN ×2 (03:44→21:05)
[2017-02-23] MEDS: BACLOFEN (10 MG) 10 MG TABLET GT SCH ×2 (05:14→18:00)
[2017-02-23] MEDS: MEROPENEM 1 G in IV NS 0.9% 100 ML IV SCH ×3 (05:14→21:05)
[2017-02-23] MEDS ORDERED: Medication Not On Formulary EA (Omeprazole 40 MG) GT SCH (06:30)
[2017-02-23 07:24] LABS: BASOPHILS % (AUTO) 0.3 % (0.0-2.0); EOSINOPHILS % (AUTO) 0.8 % (0.0-6.0); HEMATOCRIT 28 % (33-45); HEMOGLOBIN 8.8 g/dL (11.5-14.8); LYMPHOCYTES # (AUTO) 1.6 /CMM (0.8-4.8); LYMPHOCYTES % (AUTO) 38.1 % (20.0-44.0); MEAN CORPUSCULAR HEMOGLOBIN 26 PG (26.0-33.0); MEAN CORPUSCULAR HGB CONC 32 g/dl (31.0-36.0); MEAN CORPUSCULAR VOLUME 82 fL (82-100); MONOCYTES # (AUTO) 0.8 /CMM (0.1-1.30); MONOCYTES % (AUTO) 19.1 % (2.0-12.0); NEUTROPHILS # (AUTO) 1.7 /CMM (1.8-8.9); NEUTROPHILS % (AUTO) 41.7 % (43.0-81.0); PLATELET COUNT (AUTO) 144 /CMM (150-450); RDW COEFFICIENT OF VARIATION 18.9 (11.5-15.0)
[2017-02-23 07:29] LABS: WHITE BLOOD COUNT (AUTO) 4.1 K/uL (4.3-11.0)
--- NOTE | 2017-02-23 07:30 | NUR ---
RN NOTE RECEIVED PT OBTUNDED, OPENS EYES. ON [facility] VENT, TOLERATING WELL, NO SOB, SATURATION 99%, UNDER WARMING BLANKET, PT NOTED TO HAVE LOW TEMPERATURE ACCORDING TO REPORT 94.7 F RECTALLY; ON FAMILY SERVICES COORDINATOR SR 90 BPM, NG TUBE ON TO LIS, GREEN STOMACH CONTENT NOTED IN THE CANISTER, G TUBE CLAMPED, ABDOMEN DISTENDED, HYPOACTIVE BOWEL SOUNDS, F/C IN PLACE, LOW AMOUNT URINE SEEN, YELLOW, CLEAR, PT HAS GENERALIZED EDEMA, IV FLUIDS RUNNING. IV SITE INTACT. HOB >30 DEGREES, SAFETY AND ASPIRATION PRECAUTIONS MAINTAINED, WILL CONTINUE TO MONITOR.
[2017-02-23 07:49] LABS: CALCIUM, SERUM 9.8 mg/dL (8.5-10.1); CREATININE 0.6 mg/dL (0.6-1.3); MAGNESIUM 2.3 mg/dL (1.8-2.4); PHOSPHORUS 2.8 mg/dL (2.5-4.9); POTASSIUM 3.1 mmol/L (3.5-5.1)
[2017-02-23 08:25] LABS: BAND % (MANUAL) 6 % (0.0-5.0); EOSINOPHILS % (MANUAL) 2 % (0-4); LYMPHOCYTES % (MANUAL) 40 % (16-48); MONOCYTES % (MANUAL) 20 % (0-11.0); NEUTROPHILS % (MANUAL) 32 (42-76)
--- NOTE | 2017-02-23 08:30 | NUR ---
RN NOTE CONTACTED GI DR. SMYTH REGARDING G TUBE DISLODGEMENT ON PT, HE WILL FOLLOW UP.
[2017-02-23] MEDS: POTASSIUM CHLORIDE 20 MEQ TAB.PRT.SR PO SCH (09:00)
[2017-02-23] MEDS: FUROSEMIDE 20 MG TABLET GT SCH (09:00)
[2017-02-23] MEDS: MIDODRINE HCL (5MG) 5 MG TABLET GT SCH ×2 (09:00→21:00)
[2017-02-23] MEDS: ONDANSETRON 4 MG TAB.RAPDIS GT SCH ×4 (09:00→21:00)
[2017-02-23] MEDS: PANTOPRAZOLE 40 MG VIAL IV SCH (09:34)
[2017-02-23] MEDS: Z GUARD REMEDY 4 OZ OINT TP SCH ×2 (09:34→21:07)
[2017-02-23] MEDS: POTASSIUM CL. PREMIX PERIPHER. 50 ML IV SCH ×4 (11:25→15:42)
--- NOTE | 2017-02-23 17:03 | NUR ---
RT PT FAMILY SPOKE WITH OVER THE PHONE, FAMILY MEMBER REQUESTED RT TO PLACE THE PT ON COOL AEROSOL. FAMILY MEMBER WAS INFORMED OF PT CONDITION AND NEED FOR VENTILATOR. PT FAMILY STILL REQUESTED TO PLACE PT ON COOL AEROSOL. RT TOLD FAMILY THAT HE WOULD SPEAK WITH BOAT HAND ABOUT THE REQUEST. DR. HERNANDEZ WAS INFORMED OF FAMILIES REQUEST TO PLACE PT ON COOL AEROSOL. PER DR. HERNANDEZ REQUEST IS NOT POSSIBLE AT THIS TIME DUE TO PT NEEDING VENTILATOR SUPPORT. CHARGE NURSE MARIA A INFORMED THAT DR. HERNANDEZ WAS NOTIFIED AND AWARE.
--- NOTE | 2017-02-23 17:15 | NUR ---
DR. Mosqueda at bedside seen and evaluated patient and discusssed with sister via phone for egd and replacement of peg in am,able to get consent.
--- NOTE | 2017-02-23 19:35 | NUR ---
RN OPENING NOTES: RECEIVED ON BED PT TRACHED AND ON VENT WITH SETTINGS ORDERED, TOLERATED WELL, NOT IN APPARENT DISTRESS; OBTUNDED, WITH SPONTANEOUS EYE OPENING. SR ON MONITOR HR AT 91 BPM. NOTED WITH NGT INTACT, CONNECTED TO LOW INTERMITTENT SUCTION. GT STILL ON ABDOMINAL WALL WITH NOTED ERYTHEMATOUS SURROUNDING AREA; KEPT CLAMPED. FC INTACT TO A CLOSED SYSTEM, MONITORED FOR UO AND HEMATURIA. SAFETY MEASURES ENSURED. ASPIRATION PRECAUTIONS ENSURED. CONTINUOUSLY MONITORED.
[2017-02-23] MEDS: MULTIVIT, IRON, MIN NO. 8, FA 1 TAB GT SCH (21:00)
[2017-02-23] MEDS: SENNOSIDES 8.6 MG TABLET GT SCH (21:07)
[2017-02-23] MEDS: FAMOTIDINE (20 MG) 20 MG TABLET GT SCH (21:07)
[2017-02-24] VITALS (8 sets, daily range): BP systolic 91–110; BP diastolic 45–72
--- NOTE | 2017-02-24 | NUR ---
RN NOTES: NOTED WITH OPEN WOUND ON LEFT INNER UPPER BUTTOCK. PHOTODOCUMENTATION DONE. CLEANSED WITH NS PAT DRY AND COVERED WITH MEPILEX; PENDING WOUND CONSULT. TURNED AND REPOSITIONED. CONTINUOUSLY MONITORED.
[2017-02-24] MEDS: IPRATROPIUM NEB FS 0.5 MG/2.5 ML AMPUL.NEB IH SCH ×4 (01:26→19:43)
[2017-02-24] MEDS: ALBUTEROL FS 2.5 MG/0.5 ML VIAL.NEB NEB SCH ×4 (01:26→19:43)
[2017-02-24] MEDS: MEROPENEM 1 G in IV NS 0.9% 100 ML IV SCH ×3 (05:43→21:39)
[2017-02-24] MEDS: BACLOFEN (10 MG) 10 MG TABLET GT SCH ×2 (05:43→17:11)
--- NOTE | 2017-02-24 06:48 | NUR ---
RN CLOSING NOTES: PATIENT REMAINS NOT IN APPARENT DISTRESS, KEPT TRACH TO MECH VENT. REMAINED SINUS RHYTHM ON THE MONITOR. IV ACCESS INTACT, IVF INFUSING. FC INTACT, NOTED WITH ONLY 150 CC OF URINE OUTPUT FROM HASSAN CATH; BLADDER SCAN DONE NOTED WITH MAX OF 64 CC RETAINED. SKIN CARE RENDERED. SAFETY MEASURES ENSURED. SUCTIONED FREQUENTLY. NGT TO LOW INTERMITTENT SUCTION, REMAINS INTACT. KEPT NPO. TO ENDORSE TO AM SHIFT RN.
--- NOTE | 2017-02-24 07:05 | NUR ---
RN NOTES REPORT RECEIVED AT THE BEDSIDE. PATIENT RESTING COMFORTABLY IN BED. NO SOB OR DISTRESS NOTED AT THIS TIME. PATIENT DOES NOT APPEAR TO BE IN PAIN, NO FACIAL GRIMACE NOTED. HEART RATE SR IN THE 70S. BED IN A LOW POSITION, CALL LIGHT WITHIN PATIENT REACH, VENT SETTINGS CHECKED AND RECORDED. WILL CONTINUE TO MONITOR.
[2017-02-24 07:36] LABS: ALBUMIN 2.2 g/dL (3.4-5.0); BILIRUBIN,TOTAL 0.2 mg/dL (0.2-1.0); CALCIUM, SERUM 9.6 mg/dL (8.5-10.1); CREATININE 0.5 mg/dL (0.6-1.3); MAGNESIUM 1.9 mg/dL (1.8-2.4); PHOSPHORUS 2.6 mg/dL (2.5-4.9); POTASSIUM 3.6 mmol/L (3.5-5.1); TOTAL PROTEIN, SERUM 7.3 g/dL (6.4-8.2)
[2017-02-24 08:22] LABS: BASOPHILS % (AUTO) 0.4 % (0.0-2.0); EOSINOPHILS # (AUTO) 0.1 /CMM (0.0-0.7); EOSINOPHILS % (AUTO) 2.6 % (0.0-6.0); HEMATOCRIT 25 % (33-45); LYMPHOCYTES # (AUTO) 2.5 /CMM (0.8-4.8); LYMPHOCYTES % (AUTO) 44.5 % (20.0-44.0); MEAN CORPUSCULAR HEMOGLOBIN 26 PG (26.0-33.0); MEAN CORPUSCULAR HGB CONC 32 g/dl (31.0-36.0); MEAN CORPUSCULAR VOLUME 82 fL (82-100); MONOCYTES # (AUTO) 0.8 /CMM (0.1-1.30); MONOCYTES % (AUTO) 15.2 % (2.0-12.0); NEUTROPHILS # (AUTO) 2.1 /CMM (1.8-8.9); NEUTROPHILS % (AUTO) 37.3 % (43.0-81.0); PLATELET COUNT (AUTO) 144 /CMM (150-450); RDW COEFFICIENT OF VARIATION 19.1 (11.5-15.0); RED BLOOD CELL COUNT(AUTO) 3.06 MIL/uL (4.0-5.2); WHITE BLOOD COUNT (AUTO) 5.5 K/uL (4.3-11.0)
[2017-02-24 08:24] LABS: INR 0.96 (0.87-1.13); PROTHROMBIN TIME 10.2 SECS (9.5-12.7)
[2017-02-24] MEDS: PANTOPRAZOLE 40 MG VIAL IV SCH (08:32)
[2017-02-24] MEDS: Z GUARD REMEDY 2 OZ OINT TP PRN (08:33)
[2017-02-24] MEDS: ONDANSETRON 4 MG TAB.RAPDIS GT SCH ×4 (08:33→21:00)
[2017-02-24] MEDS: FUROSEMIDE 20 MG TABLET GT SCH (08:33)
[2017-02-24] MEDS: MIDODRINE HCL (5MG) 5 MG TABLET GT SCH ×2 (08:33→21:00)
[2017-02-24] MEDS: POTASSIUM CHLORIDE 20 MEQ TAB.PRT.SR PO SCH (08:33)
[2017-02-24] MEDS: Z GUARD REMEDY 4 OZ OINT TP SCH ×2 (08:34→21:42)
--- NOTE | 2017-02-24 09:21 | NUR ---
WOUND CARE CONSULT: PT SEEN FOR PERIANAL AREA OF EXCORIATED OPEN SKIN WHICH IS MOISTURE RELATED. PT INCONTINENT OF STOOL. SKIN TO BE KEPT CLEAN AND DRY. RECOMMENDATIONS MADE FOR SKIN PROTECTION AND DISCUSSED WITH NURSING STAFF. PT ON FIRST STEP MATTRESS. ALL SKIN PROTECTION MEASURES IN PLACE. G TUBE REMAINS CLAMPED. PT TO HAVE EGD TODAY PER NURSING STAFF . WILL SEE PRN. REDDING IN AGREEMENT WITH PLAN OF CARE. Addendum: 02/24/17 at 0922 by REGINA PAHM WNDNU Amended: Links added.
[2017-02-24] MEDS: IV D5/0.45 NACL 1,000 ML IV PRN ×2 (11:05→22:53)
[2017-02-24 11:13] LABS: BAND % (MANUAL) 2 % (0.0-5.0); EOSINOPHILS % (MANUAL) 3 % (0-4); LYMPHOCYTES % (MANUAL) 49 % (16-48); MONOCYTES % (MANUAL) 14 % (0-11.0); NEUTROPHILS % (MANUAL) 32 (42-76)
--- NOTE | 2017-02-24 18:34 | NUR ---
RN CLOSING NOTES NO SIGNIFICANT CHANGES IN PATIENT CONDITION THROUGHOUT THE SHIFT. NO SOB OR DISTRESS NOTED AT THIS TIME. PATIENT DOES NOT APPEAR TO BE IN PAIN, NO FACIAL GRIMACE NOTED. BED IN A LOW POSITION, CALL LIGHT WITHIN PATIENT REACH. HEART RATE SR IN THE 60S. VENT SETTINGS REMAIN UNCHANGED WILL ENDORSE FOR KATRIN.
--- NOTE | 2017-02-24 19:30 | NUR ---
RENAL TECHNICIAN INITIAL NOTE PT RECEIVED IN BED WITH A HEATING BLANKET ON. ON MECH VENT WITH SETTINGS WELL TOLERATED AND SATURATING 100%. OBTUNDED AND SPONTANEOUSLY OPENS EYES. TELE- SINUS RHYTHM 64. PT NPO WITH NGTUBE SET TO LOW INTERMITTENT SUCTION IN PLACE. IV RIGHT HAND #20 CLEAN, DRY, PATENT WITH FLUIDS RUNNING. ON ASPIRATION PRECAUTIONS. HOB @ 40 DEGREES AT THIS TIME. HASSAN CATHETER IN PLACE AND DRAINING BY GRAVITY. CALL LIGHT WITHIN REACH. WILL CONTINUE TO MONITOR.
[2017-02-24] MEDS: MULTIVIT, IRON, MIN NO. 8, FA 1 TAB GT SCH (21:00)
[2017-02-24] MEDS: SENNOSIDES 8.6 MG TABLET GT SCH (21:42)
[2017-02-24] MEDS: FAMOTIDINE (20 MG) 20 MG TABLET GT SCH (21:42)
[2017-02-25] VITALS: BP 106/54
[2017-02-25] MEDS: ALBUTEROL FS 2.5 MG/0.5 ML VIAL.NEB NEB SCH ×4 (01:14→20:07)
[2017-02-25] MEDS: IPRATROPIUM NEB FS 0.5 MG/2.5 ML AMPUL.NEB IH SCH ×4 (01:14→20:07)
[2017-02-25 04:00] VITALS: BP 105/63
[2017-02-25] MEDS: MEROPENEM 1 G in IV NS 0.9% 100 ML IV SCH ×3 (04:49→21:20)
[2017-02-25] MEDS: BACLOFEN (10 MG) 10 MG TABLET GT SCH ×2 (06:00→18:41)
--- NOTE | 2017-02-25 06:52 | NUR ---
WATCH DIAL STONER CLOSING NOTE PT REMAINED STABLE DURING SHIFT. VENT SETTINGS WELL TOLERATED. KEPT CLEAN AND DRY. REPOSITIONED Q2H. NGTUBE IN PLACE AND IN LOW INTERMITTENT SUCTION. NPO STATUS MAINTAINED. TEMP MEASURES OFTEN DUE TO LOW TEMP AT BEGINNING OF SHIFT. AT 5AM TEMP WAS 99.0 RECTAL. NO ACUTE DISTRESS NOTED. SUCTIONED NEEDED. TREATMENT PERFORMED. WILL ENDORSE TO NEXT SHIFT FOR CONTINUITY OF CARE.
--- NOTE | 2017-02-25 07:28 | NUR ---
RN NOTES RECEIVED PT FROM NIGHT SHIT IN STABLE CONDITION, CHRONIC VENT/TRACH DEPENDENT, OBTUNDED, SPONTANEOUS EYE OPENING. TOLERATING VENT SETTINGS, NO SOB OR DISTRESS NOTED. NGT INTERMITTENT SUCTION. HASSAN DRAINING TO GRAVITY. HEATING BLANKET APPLIED. R HAND 20 GAUGE WITH IVF AT 100ML/HR, IV SITE DRY AND INTACT. SIDE RAILS UPX3, BED LOCKED AND IN LOWEST POSITION WILL CONT TO MONITOR.
[2017-02-25 08:00] VITALS: BP 97/46
[2017-02-25] MEDS: PANTOPRAZOLE 40 MG VIAL IV SCH (08:59)
[2017-02-25] MEDS: MIDODRINE HCL (5MG) 5 MG TABLET GT SCH ×2 (08:59→21:21)
[2017-02-25] MEDS: ONDANSETRON 4 MG TAB.RAPDIS GT SCH ×4 (08:59→21:00)
[2017-02-25] MEDS: POTASSIUM CHLORIDE 20 MEQ TAB.PRT.SR PO SCH (08:59)
[2017-02-25] MEDS: FUROSEMIDE 20 MG TABLET GT SCH (08:59)
[2017-02-25] MEDS: Z GUARD REMEDY 2 OZ OINT TP PRN (09:00)
[2017-02-25] MEDS: Z GUARD REMEDY 4 OZ OINT TP SCH ×2 (09:00→22:51)
--- NOTE | 2017-02-25 10:27 | NUR ---
RN NOTES BEDSIDE EGD AND GTUBE PLACEMENT COMPLETE. DR SMYTH GAVE OK TO USE GTUBE FOR MEDS. STILL NOT FEEDING. PT WILL BE MONITORED FOR A FEW DAYS BEFORE GTUBE FEEDING IS STARTED. NG TUBE REMOVED.
[2017-02-25] MEDS: IV D5/0.45 NACL 1,000 ML IV PRN (11:09)
[2017-02-25 11:11] LABS: CALCITRIOL VIT D,1, 25 DIHYDRO 55.3 pg/mL (19.9-79.3)
[2017-02-25 12:00] VITALS: BP 92/44
[2017-02-25 16:00] VITALS: BP 96/51
--- NOTE | 2017-02-25 18:56 | NUR ---
RN NOTES PT RESTING IN BED TOLERATING VENT SETTINGS NO SOB OR DISTRESS NOTED AT THIS TIME. NO SIGNIFICANT CHANGES ON MY SHIFT. PT CLEANED TURNED AND SUCTIONED. ALL NEEDS MET, CALL LIGHT WITHIN REACH, SIDE RAILS UPX3, BED LOCKED AND IN LOWEST POSITION. WILL ENDORSE TO ONCOMING SHIFT.
[2017-02-25 20:00] VITALS: BP 104/53
--- NOTE | 2017-02-25 20:05 | NUR ---
TAIL PULLER INITIAL NOTE PT RECEIVED IN BED WITH A HEATING BLANKET ON. ON MECH VENT WITH SETTINGS WELL TOLERATED AND SATURATING 100%. OBTUNDED AND SPONTANEOUSLY OPENS EYES. TELE- SINUS RHYTHM 72. PT NPO WITH NGTUBE SET TO LOW INTERMITTENT SUCTION IN PLACE. IV RIGHT HAND #20 CLEAN, DRY, PATENT WITH FLUIDS RUNNING. ON ASPIRATION PRECAUTIONS. HOB @ 40 DEGREES AT THIS TIME. HASSAN CATHETER IN PLACE AND DRAINING BY GRAVITY. CALL LIGHT WITHIN REACH. WILL CONTINUE TO MONITOR.
[2017-02-25] MEDS: MULTIVIT, IRON, MIN NO. 8, FA 1 TAB GT SCH (21:21)
[2017-02-25] MEDS: FAMOTIDINE (20 MG) 20 MG TABLET GT SCH (22:48)
[2017-02-25] MEDS: SENNOSIDES 8.6 MG TABLET GT SCH (22:49)
[2017-02-26] VITALS (7 sets, daily range): BP systolic 75–109; BP diastolic 35–61
[2017-02-26] MEDS: IPRATROPIUM NEB FS 0.5 MG/2.5 ML AMPUL.NEB IH SCH ×4 (01:34→19:49)
[2017-02-26] MEDS: ALBUTEROL FS 2.5 MG/0.5 ML VIAL.NEB NEB SCH ×4 (01:34→19:49)
[2017-02-26] MEDS: IV D5/0.45 NACL 1,000 ML IV PRN (03:10)
[2017-02-26] MEDS: MEROPENEM 1 G in IV NS 0.9% 100 ML IV SCH ×3 (04:11→22:33)
[2017-02-26] MEDS: BACLOFEN (10 MG) 10 MG TABLET GT SCH ×2 (05:54→17:22)
--- NOTE | 2017-02-26 06:07 | NUR ---
CASH GRAIN FARMER CLOSING NOTE PT ENDORSED IN BED WITH A HEATING BLANKET ON. ON MECH VENT WITH SETTINGS WELL TOLERATED AND SATURATING 100%. OBTUNDED AND SPONTANEOUSLY OPENS EYES. TELE- SINUS RHYTHM 61. IV RIGHT HAND #20 CLEAN, DRY, PATENT WITH FLUIDS RUNNING. ON ASPIRATION PRECAUTIONS. HOB @ 40 DEGREES AT THIS TIME. HASSAN CATHETER IN PLACE AND DRAINING BY GRAVITY. CALL LIGHT WITHIN REACH. WILL CONTINUE TO MONITOR.
[2017-02-26 06:33] LABS: BASOPHILS % (AUTO) 0.4 % (0.0-2.0); EOSINOPHILS # (AUTO) 0.2 /CMM (0.0-0.7); EOSINOPHILS % (AUTO) 5.3 % (0.0-6.0); HEMATOCRIT 26 % (33-45); HEMOGLOBIN 8.1 g/dL (11.5-14.8); LYMPHOCYTES # (AUTO) 2.1 /CMM (0.8-4.8); LYMPHOCYTES % (AUTO) 53.2 % (20.0-44.0); MEAN CORPUSCULAR HEMOGLOBIN 26 PG (26.0-33.0); MEAN CORPUSCULAR HGB CONC 31 g/dl (31.0-36.0); MEAN CORPUSCULAR VOLUME 82 fL (82-100); MONOCYTES # (AUTO) 0.4 /CMM (0.1-1.30); MONOCYTES % (AUTO) 10.2 % (2.0-12.0); NEUTROPHILS # (AUTO) 1.2 /CMM (1.8-8.9); NEUTROPHILS % (AUTO) 30.9 % (43.0-81.0); PLATELET COUNT (AUTO) 136 /CMM (150-450); RDW COEFFICIENT OF VARIATION 19.4 (11.5-15.0); RED BLOOD CELL COUNT(AUTO) 3.15 MIL/uL (4.0-5.2)
[2017-02-26 07:06] LABS: CREATININE 0.5 mg/dL (0.6-1.3); MAGNESIUM 1.6 mg/dL (1.8-2.4); PHOSPHORUS 3.3 mg/dL (2.5-4.9); POTASSIUM 3.2 mmol/L (3.5-5.1)
--- NOTE | 2017-02-26 07:12 | NUR ---
RN INITIAL NOTES: REC'D PT ON BED, NOT IN ANY DISTRESS, OBTUNDED, OPENS EYES SPONTANEOUSLY. ON TELEMONITOR, SR. ON MECH VENT VIA TRACH, SATURATING 100%. HAS GT CLAMPED (REINSERTED ON 02/25/17), NO LEAKING NOTED ON THE SITE, RESIDUAL NOTED - 40CC UPON CHECKING. HAS FC PATENT & INTACT. HAS R HAND G20 PL, PATENT & INTACT W/ NO S/SX OF INFECTION/INFILTRATION NOTED, D5 1/2 NS X 100 CC/HR INFUSING WELL. PROVIDED COMFORT & SAFETY MEASURES. BED KEPT LOW & IN LOCKED POS. CALL LIGHT PLACED W/IN REACH. WILL CONTINUE TO MONITOR AND ATTEND NEEDS.
[2017-02-26] MEDS: PANTOPRAZOLE 40 MG VIAL IV SCH (08:52)
[2017-02-26] MEDS: FUROSEMIDE 20 MG TABLET GT SCH (08:52)
[2017-02-26] MEDS: POTASSIUM CHLORIDE 20 MEQ TAB.PRT.SR PO SCH (08:52)
[2017-02-26] MEDS: MIDODRINE HCL (5MG) 5 MG TABLET GT SCH ×2 (08:53→22:32)
[2017-02-26] MEDS: Z GUARD REMEDY 2 OZ OINT TP PRN (08:54)
[2017-02-26] MEDS: Z GUARD REMEDY 4 OZ OINT TP SCH ×2 (08:55→22:34)
[2017-02-26] MEDS: ONDANSETRON 4 MG TAB.RAPDIS GT SCH (08:56)
[2017-02-26 09:53] LABS: ABG OXYGEN SATURATION 98.8 % (92.0-98.5); ABG PH 7.393 (7.350-7.450); ABG PO2 180.6 mmHg (75.0-100.0); AaDO2 58.6 mmHg; COHb 0.3 % (0.5-1.5); MetHb 0.3 % (0.0-1.5); O2Hb 98.2 % (94.0-97.0); PEEP,BG 5 cm H2O; SITE, ABG Right Radial; VENT MODE, BG SIMV 4 500 PS12 40% +5; VT, ABG 500 mL
--- NOTE | 2017-02-26 11:00 | NUR ---
RN NOTES: PER DR. SMYTH CAN START TUBE FEEDING OF NOVASOURCE X 30 CC/HR. DC CURRENT IVF. MONITOR IF PT CAN TOLERATE FEEDING.
--- NOTE | 2017-02-26 12:00 | NUR ---
RN NOTES: HR OF THE PT NOTED TO BE DECREASING LOW'S 40'S AFTER CHANGING VENT SETTING TO SIMV. DR. HERNANDEZ MADE AWARE WELL ABG RESULT AFTER SETTINGS CHANGED. PER MD, KEEP CURRENT SETTINGS AT THIS TIME AND CONTINUE TO MONITOR.
[2017-02-26] MEDS: Magnesium 1GM/D5W 100ML PREMIX 100 ML IV SCH ×2 (12:11→14:08)
[2017-02-26] MEDS: RENAL NOVASOURCE 1,000 ML BOTTLE GT PRN (12:15)
[2017-02-26] MEDS ORDERED: POTASSIUM CHLORIDE 20 MEQ POWDER PACKET GT ONE (12:30)
--- NOTE | 2017-02-26 18:30 | NUR ---
RN NOTES: PT SEEN & EXAMINED BY NIKI RIVERA.
--- NOTE | 2017-02-26 18:32 | NUR ---
RN CLOSING NOTES: NO ACUTE CHANGES NOTED W/IN SHIFT. PT TOLERATED PRESCRIBED MV SETTINGS (ON SIMV). SECRETIONS SUCTIONED. ON TELEMONITOR, STILL SR/SB. FC KEPT PATENT & INTACT. HELD TUBE FEEDING VIA PEG AT THIS TIME DUE TO RESIDUAL OF 150CC. DR. SMYTH MADE AWARE. CARL MIDLINE AND L HAND G22, SL, KEPT PATENT & INTACT, W/ NO S/SX OF INFECTION/ INFILTRATION. KEPT WELL RESTED. NEEDS ATTENDED. BED KEPT LOW & IN LOCKED POS. CALL LIGHT PLACED W/IN REACH. WILL ENDORSE TO PM RN FOR KATRIN.
--- NOTE | 2017-02-26 20:40 | NUR ---
PLANT CULTURE MANAGER INITIAL NOTE PT RECEIVED IN BED WITH A HEATING BLANKET ON. ON MECH VENT WITH SETTINGS WELL TOLERATED AND SATURATING 100%. OBTUNDED AND SPONTANEOUSLY OPENS EYES. TELE- SINUS RHYTHM 72. PT GTF STILL HELD, D/T RESIDUAL OF 100ML, WILL CONT TO MONITOR RESIDUAL. IV LEFT HAND #22 AND PAGIE MIDLINE. CLEAN, DRY, PATENT WITH TKO RUNNING. ON ASPIRATION PRECAUTIONS. HOB @ 40 DEGREES AT THIS TIME. HASSAN CATHETER IN PLACE AND DRAINING BY GRAVITY. CALL LIGHT WITHIN REACH. WILL CONTINUE TO MONITOR.
[2017-02-26] MEDS: MULTIVIT, IRON, MIN NO. 8, FA 1 TAB GT SCH (22:31)
[2017-02-26] MEDS: FAMOTIDINE (20 MG) 20 MG TABLET GT SCH (22:31)
[2017-02-26] MEDS: SENNOSIDES 8.6 MG TABLET GT SCH (22:32)
[2017-02-27] VITALS: BP_SYST 101; BP_SYST 88; BP_DIAS 42; BP_DIAS 50
--- NOTE | 2017-02-27 01:02 | NUR ---
0100 AM GT RESUMED NO RESIDUAL AT THIS TIME GT PATENT, HOB ELEVATED
[2017-02-27] MEDS: ALBUTEROL FS 2.5 MG/0.5 ML VIAL.NEB NEB SCH ×4 (01:46→20:01)
[2017-02-27] MEDS: IPRATROPIUM NEB FS 0.5 MG/2.5 ML AMPUL.NEB IH SCH ×4 (01:46→20:01)
[2017-02-27 04:00] VITALS: BP_SYST 83; BP_SYST 87; BP_SYST 99; BP_DIAS 29; BP_DIAS 56
[2017-02-27] MEDS: BACLOFEN (10 MG) 10 MG TABLET GT SCH ×2 (05:00→17:41)
[2017-02-27] MEDS: MEROPENEM 1 G in IV NS 0.9% 100 ML IV SCH ×3 (05:00→20:52)
--- NOTE | 2017-02-27 05:00 | NUR ---
0500 HELD GTF RESIDUAL 120, NO ASPIRATION, WILL CONT TO MONITOR
--- NOTE | 2017-02-27 06:38 | NUR ---
VERTICA ARCHITECT CLOSING NOTE PT ENDORSED IN BED WITH A HEATING BLANKET ON. ON MECH VENT WITH SETTINGS WELL TOLERATED AND SATURATING 100%. OBTUNDED AND SPONTANEOUSLY OPENS EYES. TELE- SINUS RHYTHM 101 PT GTF STARTED AT 0100 AND HELD AT 0500 D/T RESIDUAL OF 120ML, WILL CONT TO MONITOR RESIDUAL. IV LEFT HAND #22 AND PAIGE MIDLINE. CLEAN, DRY, PATENT WITH TKO RUNNING. ON ASPIRATION PRECAUTIONS. HOB @ 40 DEGREES AT THIS TIME. HASSAN CATHETER IN PLACE AND DRAINING BY GRAVITY. CALL LIGHT WITHIN REACH. WILL CONTINUE TO MONITOR.
--- NOTE | 2017-02-27 07:00 | NUR ---
RN NOTES RECEIVED PT ON BED, OBTUNDED ,NON VERBAL ,VENT/ TRACH DEPENDENT, TOLERATING CURRENT VENT SETTING WELL ,SATURATING 100%. ON TELE SR IN 60'S , TF NOVASOURCE AT 30CC/HR RESTARTED , 20 CC RESIDUAL NOTED, IV LEFT HAND #22 AND LEFT UPPER ARM MIDLINE SITE CDI, HOB ELEVATED AT ALL TIMES , HASSAN CATHETER IN PLACE AND DRAINING BY GRAVITY. SR UP x3, CALL LIGHT WITHIN EASY REACH. WILL CONTINUE TO MONITOR PT CLOSELY.
[2017-02-27 08:00] VITALS: BP_SYST 84; BP_SYST 89; BP_DIAS 42
--- NOTE | 2017-02-27 08:00 | NUR ---
RT PATIENT PLACED ON COOL AEROSOL PER DR HERNANDEZ ORDER EUGENIO WELL. RN ADEL AWARE
[2017-02-27 08:08] LABS: BASOPHILS % (AUTO) 0.2 % (0.0-2.0); EOSINOPHILS # (AUTO) 0.3 /CMM (0.0-0.7); EOSINOPHILS % (AUTO) 3.8 % (0.0-6.0); HEMATOCRIT 28 % (33-45); HEMOGLOBIN 8.7 g/dL (11.5-14.8); LYMPHOCYTES # (AUTO) 1.6 /CMM (0.8-4.8); MEAN CORPUSCULAR HEMOGLOBIN 26 PG (26.0-33.0); MEAN CORPUSCULAR HGB CONC 32 g/dl (31.0-36.0); MEAN CORPUSCULAR VOLUME 82 fL (82-100); MONOCYTES # (AUTO) 0.4 /CMM (0.1-1.30); MONOCYTES % (AUTO) 4.7 % (2.0-12.0); NEUTROPHILS # (AUTO) 5.6 /CMM (1.8-8.9); NEUTROPHILS % (AUTO) 71.3 % (43.0-81.0); PLATELET COUNT (AUTO) 152 /CMM (150-450); RDW COEFFICIENT OF VARIATION 18.7 (11.5-15.0); RED BLOOD CELL COUNT(AUTO) 3.37 MIL/uL (4.0-5.2); WHITE BLOOD COUNT (AUTO) 7.9 K/uL (4.3-11.0)
[2017-02-27 08:32] LABS: CALCIUM, SERUM 8.9 mg/dL (8.5-10.1); CREATININE 0.5 mg/dL (0.6-1.3); MAGNESIUM 2.1 mg/dL (1.8-2.4); PHOSPHORUS 2.8 mg/dL (2.5-4.9)
[2017-02-27] MEDS: MIDODRINE HCL (5MG) 5 MG TABLET GT SCH ×2 (08:32→20:52)
[2017-02-27] MEDS: PANTOPRAZOLE 40 MG VIAL IV SCH (08:32)
[2017-02-27] MEDS: FUROSEMIDE 20 MG TABLET GT SCH (08:32)
[2017-02-27] MEDS: POTASSIUM CHLORIDE 20 MEQ POWDER PACKET GT SCH (08:34)
[2017-02-27] MEDS: Z GUARD REMEDY 4 OZ OINT TP SCH ×2 (08:35→20:53)
[2017-02-27 09:43] LABS: ABG BASE EXCESS -1.7 mmol/L; ABG OXYGEN SATURATION 98.9 % (92.0-98.5); ABG PCO2 38.8 mmHg (35.0-45.0); ABG PH 7.391 (7.350-7.450); ABG PO2 224.9 mmHg (75.0-100.0); AaDO2 15.7 mmHg; COHb 0.3 % (0.5-1.5); MetHb 1.1 % (0.0-1.5); O2Hb 97.5 % (94.0-97.0); SITE, ABG Right Radial; VENT MODE, BG C/A 40%
--- NOTE | 2017-02-27 11:06 | NUR ---
RN NOTES 150CC GASTRIC RESIDUAL NOTED, TUBE FEEDING TURNED OFF AT THIS TIME .
[2017-02-27 12:00] VITALS: BP 89/40
--- NOTE | 2017-02-27 12:30 | NUR ---
RN NOTES 20CC GASTRIC RESIDUAL NOTED , TUBE FEEDING TURNED BACK ON AT 30CC/HR . CONTINUE TO MONITOR .
[2017-02-27 16:00] VITALS: BP 90/42
--- NOTE | 2017-02-27 17:00 | NUR ---
RN NOTES 120 CC GASTRIC RESIDUAL NOTED, TUBE FEEDING PLACED ON HOLD AT THIS TIME , CONTINUE TO MONITOR
--- NOTE | 2017-02-27 18:29 | NUR ---
RN NOTES VSS STABLE , SUPPORTIVE FAMILY AT THE BEDSIDE , TOLERATING COOL AEROSOL AT 28%, O2 SAT 99%, NO SOB NOTED, TRACH CARE AND SUCTIONING DONE, TF STILL ON HOLD DUE TO HIGH RESIDUAL, SR UP x3, CALL LIGHT WITHIN EASY REACH, WILL ENDORSE TO FRAME STRAIGHTENER RN FOR CONTINUITY OF CARE.
[2017-02-27 20:00] VITALS: BP 101/66
--- NOTE | 2017-02-27 20:30 | NUR ---
CUSTOMER SERVICE REP INITIAL NOTE PT RECEIVED IN BED WITH A HEATING BLANKET ON. ON C/A @ 5LPM WELL TOLERATED AND SATURATING 100%. OBTUNDED AND SPONTANEOUSLY OPENS EYES. TELE- SINUS RHYTHM 80. PT GTF STILL RUNNING, D/T RESIDUAL 40 ML, WILL CONT TO MONITOR RESIDUAL. IV LEFT HAND #22 AND PAIGE MIDLINE. CLEAN, DRY, PATENT WITH TKO RUNNING. ON ASPIRATION PRECAUTIONS. HOB @ 40 DEGREES AT THIS TIME. HASSAN CATHETER IN PLACE AND DRAINING BY GRAVITY. CALL LIGHT WITHIN REACH. WILL CONTINUE TO MONITOR.
[2017-02-27] MEDS: MULTIVIT, IRON, MIN NO. 8, FA 1 TAB GT SCH (20:52)
[2017-02-27] MEDS: FAMOTIDINE (20 MG) 20 MG TABLET GT SCH (21:07)
[2017-02-27] MEDS: SENNOSIDES 8.6 MG TABLET GT SCH (21:07)
--- NOTE | 2017-02-27 21:07 | NUR ---
SENSAGAROT HOLD D/T LOOSE STOOL PER AM CHARGE NURSE FOR KATRIN. WILL CONT TO MONITOR.
[2017-02-28] VITALS (7 sets, daily range): BP systolic 95–117; BP diastolic 46–64
[2017-02-28] MEDS: IPRATROPIUM NEB FS 0.5 MG/2.5 ML AMPUL.NEB IH SCH ×4 (01:47→19:58)
[2017-02-28] MEDS: ALBUTEROL FS 2.5 MG/0.5 ML VIAL.NEB NEB SCH ×4 (01:47→19:58)
[2017-02-28] MEDS: BACLOFEN (10 MG) 10 MG TABLET GT SCH ×2 (05:02→17:51)
[2017-02-28] MEDS: RENAL NOVASOURCE 1,000 ML BOTTLE GT PRN (05:03)
[2017-02-28 07:02] LABS: BASOPHILS % (AUTO) 0.3 % (0.0-2.0); EOSINOPHILS # (AUTO) 0.4 /CMM (0.0-0.7); EOSINOPHILS % (AUTO) 3.7 % (0.0-6.0); HEMATOCRIT 28 % (33-45); HEMOGLOBIN 8.7 g/dL (11.5-14.8); LYMPHOCYTES # (AUTO) 4.3 /CMM (0.8-4.8); MEAN CORPUSCULAR HEMOGLOBIN 26 PG (26.0-33.0); MEAN CORPUSCULAR HGB CONC 32 g/dl (31.0-36.0); MEAN CORPUSCULAR VOLUME 82 fL (82-100); MONOCYTES # (AUTO) 0.7 /CMM (0.1-1.30); MONOCYTES % (AUTO) 6.1 % (2.0-12.0); NEUTROPHILS # (AUTO) 5.8 /CMM (1.8-8.9); NEUTROPHILS % (AUTO) 51.9 % (43.0-81.0); RDW COEFFICIENT OF VARIATION 18.5 (11.5-15.0); RED BLOOD CELL COUNT(AUTO) 3.35 MIL/uL (4.0-5.2); WHITE BLOOD COUNT (AUTO) 11.2 K/uL (4.3-11.0)
[2017-02-28 07:25] LABS: CALCIUM, SERUM 9.3 mg/dL (8.5-10.1); CREATININE 0.5 mg/dL (0.6-1.3); MAGNESIUM 1.8 mg/dL (1.8-2.4); POTASSIUM 3.8 mmol/L (3.5-5.1)
--- NOTE | 2017-02-28 08:00 | NUR ---
RN OPEN NOTES RECEIEVD REPORT FROM HOSPITAL RECRUITER NURSE. PATIENT IS IN BED, OBTUNDED. VENT DEPENDENT PATIENT. NO SIGNS AND SYMPTOMS OF DISTRESS. UNLABORED AND EVEN BREATHING. WILL CONTINUE TO MONITOR AND ASSESS PATIENT THROUGH OUT MY SHIFT.
[2017-02-28] MEDS: POTASSIUM CHLORIDE 20 MEQ POWDER PACKET GT SCH (09:00)
[2017-02-28] MEDS: FUROSEMIDE 20 MG TABLET GT SCH (09:01)
[2017-02-28] MEDS: PANTOPRAZOLE 40 MG VIAL IV SCH (09:01)
[2017-02-28] MEDS: MIDODRINE HCL (5MG) 5 MG TABLET GT SCH ×2 (09:01→21:21)
[2017-02-28] MEDS: Z GUARD REMEDY 4 OZ OINT TP SCH ×2 (09:01→21:24)
[2017-02-28 09:47] LABS: PLATELET COUNT (AUTO) 158 /CMM (150-450)
--- NOTE | 2017-02-28 12:00 | NUR ---
RESUME FEEDING. RESIDUAL 25ML
--- NOTE | 2017-02-28 13:54 | NUR ---
HELD FEEDING DUE TO PATIENT CHOCKING AND ASPIRATING. RESIDUAL 85ML. WILL RECHECK RESIDUAL IN AN HOUR
--- NOTE | 2017-02-28 18:39 | NUR ---
SQL PROGRAMMER ANALYST CLOSING NOTES PATIENT IS IN BED WITH HER EYES CLOSED. NON VERBAL. PATIENT HAS A HEATING BLANKET ON. ON [facility] VENT WITH SETTINGS WELL TOLERATED AND SATURATING 100%. NO SIGNS AND SYMPTOMS OF DISTRESS OR PAIN. NON LABORED AND EVEN BREATHING. OBTUNDED AND SPONTANEOUSLY OPENS EYES. TELE- SINUS RHYTHM 81. PATIENT FEEDING HELD AT 8 AND RESUMED AT 12PM, RESIDUAL WAS CHECKED Q2HR AND HELD ACCORDINGLY. IV LEFT HAND #22 AND PAIGE MIDLINE ARE INTACT AND PATENT. PATIENT IS ON ASPIRATION PRECAUTIONS. HOB @ 35 DEGREES AT THIS TIME. HASSAN CATHETER IN PLACE AND DRAINING BY GRAVITY. BED IN LOW POSITION, LOCKED AND TWO SIDE RAILS ARE UP. CALL LIGHT WITHIN REACH. WILL CONTINUE TO MONITOR. Addendum: 02/28/17 at 1843 by GIOVANA CURTIS RN WILL ENDORSE TO [employer] GOODS DRILLING MACHINE OPERATOR NURSE
--- NOTE | 2017-02-28 19:30 | NUR ---
COAL HAULER OPERATOR INITIAL NOTES RECEIVED PATIENT OBTUNDED. OPENS EYES. NON-VERBAL. NO S/S OF PAIN OR DISCOMFORT. ON CA 28%, SPO2 100%. TRACH C/D/I ON TELE MONITOR SR 74. WITH GT PATENT AND INTACT, NOTED WITH RESIDUAL >100, WILL HOLD FEEDING AT THIS TIME. F/C PATENT AND INTACT, DRAINING BY GRAVITY. HOB ELEVATED. SIDE RAILS UP AND LOCKED. BED AT LOWEST POSITION. WILL CONTINUE TO MONITOR.
--- NOTE | 2017-02-28 21:08 | NUR ---
GT RESIDUAL 30ML, FEEDING RESTARTED. WILL CONTINUE TO MONITOR.
[2017-02-28] MEDS: MULTIVIT, IRON, MIN NO. 8, FA 1 TAB GT SCH (21:21)
[2017-02-28] MEDS: FAMOTIDINE (20 MG) 20 MG TABLET GT SCH (21:21)
[2017-02-28] MEDS: SENNOSIDES 8.6 MG TABLET GT SCH (21:21)
[2017-03-01] VITALS: BP 110/67
--- NOTE | 2017-03-01 | NUR ---
NOTED WITH GT RESIDUAL 95ML, GTF HELD. WILL CONTINUE TO MONITOR.
--- NOTE | 2017-03-01 01:00 | NUR ---
GT RESIDUAL 60ML, GTF RESTARTED. WILL CONTINUE TO MONITOR.
[2017-03-01] MEDS: ALBUTEROL FS 2.5 MG/0.5 ML VIAL.NEB NEB SCH ×3 (01:51→15:32)
[2017-03-01] MEDS: IPRATROPIUM NEB FS 0.5 MG/2.5 ML AMPUL.NEB IH SCH ×3 (01:51→15:32)
[2017-03-01 04:00] VITALS: BP 99/57
--- NOTE | 2017-03-01 04:00 | NUR ---
GT RESIDUAL 120, GT HELD 0500 GT RESIDUAL 50ML, GT CONTINUED. WILL CONTINUE TO MONITOR.
[2017-03-01] MEDS: BACLOFEN (10 MG) 10 MG TABLET GT SCH (05:40)
[2017-03-01 07:06] LABS: BASOPHILS % (AUTO) 0.4 % (0.0-2.0); EOSINOPHILS # (AUTO) 0.3 /CMM (0.0-0.7); EOSINOPHILS % (AUTO) 5.7 % (0.0-6.0); HEMATOCRIT 26 % (33-45); HEMOGLOBIN 8.6 g/dL (11.5-14.8); LYMPHOCYTES # (AUTO) 2.8 /CMM (0.8-4.8); LYMPHOCYTES % (AUTO) 52.4 % (20.0-44.0); MEAN CORPUSCULAR HEMOGLOBIN 27 PG (26.0-33.0); MEAN CORPUSCULAR HGB CONC 33 g/dl (31.0-36.0); MEAN CORPUSCULAR VOLUME 82 fL (82-100); MONOCYTES # (AUTO) 0.5 /CMM (0.1-1.30); MONOCYTES % (AUTO) 9.1 % (2.0-12.0); NEUTROPHILS # (AUTO) 1.7 /CMM (1.8-8.9); NEUTROPHILS % (AUTO) 32.4 % (43.0-81.0); PLATELET COUNT (AUTO) 173 /CMM (150-450); RDW COEFFICIENT OF VARIATION 18.5 (11.5-15.0); RED BLOOD CELL COUNT(AUTO) 3.24 MIL/uL (4.0-5.2); WHITE BLOOD COUNT (AUTO) 5.3 K/uL (4.3-11.0)
[2017-03-01 07:21] LABS: CALCIUM, SERUM 9.5 mg/dL (8.5-10.1); CREATININE 0.5 mg/dL (0.6-1.3); MAGNESIUM 1.7 mg/dL (1.8-2.4); POTASSIUM 3.4 mmol/L (3.5-5.1)
--- NOTE | 2017-03-01 07:22 | NUR ---
BOAT AND PLANT UTILITY SUPERVISOR CLOSING NOTES NO SIGNIFICANT CHANGES OVERNIGHT. NO RESPIRATORY DISTRESS NOTED. TOLERATING C/A 28% FIO2, SPO2 100%. GT PATENT AND INTACT. F/C IN PLACE. KEPT CLEAN AND DRY. TURNED AND REPOSITIONED Q2 AND PRN. WOUND TX ORDERED. TRACH CARE DONE. HOB ELEVATED. SIDE RAILS UP AND LOCKED. DVT PUMPS IN PLACE. CONTINUITY OF CARE ENDORSED TO AM NURSE.
[2017-03-01 08:00] VITALS: BP 78/40
[2017-03-01] MEDS: POTASSIUM CHLORIDE 20 MEQ POWDER PACKET GT SCH (08:49)
[2017-03-01] MEDS: PANTOPRAZOLE 40 MG VIAL IV SCH (08:49)
[2017-03-01] MEDS: MIDODRINE HCL (5MG) 5 MG TABLET GT SCH (08:58)
[2017-03-01] MEDS: FUROSEMIDE 20 MG TABLET GT SCH (08:59)
[2017-03-01 09:00] VITALS: BP 102/56
[2017-03-01] MEDS: Z GUARD REMEDY 4 OZ OINT TP SCH (09:00)
[2017-03-01 12:00] VITALS: BP 101/51
[2017-03-01] MEDS: Magnesium 1GM/D5W 100ML PREMIX 100 ML IV SCH ×2 (13:13→14:07)
[2017-03-01] MEDS: RENAL NOVASOURCE 1,000 ML BOTTLE GT PRN (14:07)
[2017-03-01 16:00] VITALS: BP 114/33
--- NOTE | 2017-03-01 16:00 | NUR ---
RN NOTE PT DISCHARGED TO [facility] IN STABLE CONDITION, IV LINES REMOVED, F/C REMOVED, PT CLEAN, DRY, G TUBE FLUSHED AND CLAMPED, ON COOL AEROSOL, EXIT CARED ONE, DISCHARGE INSTRUCTIONS PROVIDED TO ACCEPTING NURSE AUSTYN, REPORT GIVEN TO AUSTYN RN. ENGAGEMENT SPECIALIST REMOVED. PICTURES TAKEN AND PLACED IN CHART.
== END 2017-03-01 16:31 | DRG 720 ==
LOC: ER 11:42 → TELE1 13:55
PROVIDERS: ADMIT Internal Medicine; ATTEND Internal Medicine
PROC: 5A1945Z Respiratory Ventilation, 24-96 Consecutive Hours (ICD-10-PCS; principal; 2017-02-22)
PROC: 0D20XUZ Change Feeding Device in Upper Intestinal Tract, External Approach (ICD-10-PCS; 2017-02-25 09:25)
PROC: 05H633Z Insertion of Infusion Device into Left Subclavian Vein, Percutaneous Approach (ICD-10-PCS; 2017-02-26)
DX: A41.9 Sepsis, unspecified organism (principal); J96.01 Acute respiratory failure with hypoxia; J69.0 Pneumonitis due to inhalation of food and vomit; G93.1 Anoxic brain damage, not elsewhere classified; R40.3 Persistent vegetative state; Z99.11 Dependence on respirator [ventilator] status; K31.1 Adult hypertrophic pyloric stenosis; Z93.0 Tracheostomy status; D63.8 Anemia in other chronic diseases classified elsewhere; Z79.899 Other long term (current) drug therapy; Z87.01 Personal history of pneumonia (recurrent); Z87.440 Personal history of urinary (tract) infections; I25.10 Atherosclerotic heart disease of native coronary artery without angina pectoris; Y92.129 Unspecified place in nursing home as the place of occurrence of the external cause; E83.52 Hypercalcemia; G40.909 Epilepsy, unspecified, not intractable, without status epilepticus; K31.84 Gastroparesis; K29.70 Gastritis, unspecified, without bleeding; Y83.3 Surgical operation with formation of external stoma as the cause of abnormal reaction of the patient, or of later complication, without mention of misadventure at the time of the procedure; K92.2 Gastrointestinal hemorrhage, unspecified; F09 Unspecified mental disorder due to known physiological condition; R13.10 Dysphagia, unspecified; E87.6 Hypokalemia; E87.0 Hyperosmolality and hypernatremia; D69.6 Thrombocytopenia, unspecified; K94.23 Gastrostomy malfunction; R65.20 Severe sepsis without septic shock
CPT/HCPCS: 31720; 36415; 36569; 36600; 43761; 71010-TC; 80048-TC; 80053-TC; 80076-TC; 81000-TC; 82272-TC; 82306; 82652; 82803-TC; 83605-TC; 83690-TC; 83735-TC; 83970; 84100-TC; 85025-TC; 85610-TC; 85730-TC; 86850-TC; 87040-TC; 87081-TC; 93307-TC; 94003-TC; 94640-TC; 94762-TC; 99082-TC; A4606; A4623; A4624; A6403; A7526; C9113; J2185; J2405; J3475; J3480; J3490; J7030; J7050; Q0162; Z7610

== ENCOUNTER 2017-03-01 17:32 | Inpatient (IN) | payer OTHER ==
[~2017-03-01] VITALS: Ht 165.1 cm; Wt 80.3 kg
[~2017-03-01 17:32] MED LIST changes: -ALBU2.5V13 IH; -ASPI81TA2 GT; +BISA10SU8 RC; +FAMO20TA8 GT; +FURO40SO2 GT; -LACT-209 GT; +LACT10SO GT; -LEVE100S GT; +NUTR100037 GT; -OMEG1600 GT; +ONDA4TAB8 GT; +POTA20TA83 GT; +SENN-167 GT; -TOBR5DRO2 EACHEYE
[2017-03-01 20:00] VITALS: BP 91/58
[2017-03-01] MEDS: Z GUARD REMEDY 4 OZ OINT TP SCH ×3 (21:00)
[2017-03-01] MEDS: MULTIVIT, IRON, MIN NO. 8, FA 1 TAB GT SCH (21:00)
[2017-03-01] MEDS: MIDODRINE HCL (5MG) 5 MG TABLET GT SCH (21:00)
[2017-03-01] MEDS: POLYVINYL ALCOHOL 15 ML BOTTLE EACHEYE SCH (21:00)
--- NOTE | 2017-03-01 21:00 | NUR ---
RN NOTES Received pt in bed awake and alert with no respiratory distress. Received new orders from Dr. Light, noted and carried out.
[2017-03-01] MEDS ORDERED: IPRATROPIUM NEB FS 0.5 MG/2.5 ML AMPUL.NEB IH PRN ×2 (21:05→21:09)
[2017-03-01] MEDS: FAMOTIDINE (20 MG) 20 MG TABLET GT SCH (22:00)
[2017-03-01] MEDS: SENNOSIDES 8.6 MG TABLET GT SCH (22:00)
[2017-03-02] MEDS: ALBUTEROL FS 2.5 MG/0.5 ML VIAL.NEB NEB SCH ×4 (02:10→19:50)
[2017-03-02] MEDS: IPRATROPIUM NEB FS 0.5 MG/2.5 ML AMPUL.NEB IH SCH ×4 (02:10→19:50)
[2017-03-02] MEDS: BACLOFEN (10 MG) 10 MG TABLET GT SCH ×2 (06:19→17:42)
[2017-03-02 07:33] VITALS: BP 102/57
[2017-03-02] MEDS: POLYVINYL ALCOHOL 15 ML BOTTLE EACHEYE SCH ×2 (08:14→21:25)
[2017-03-02] MEDS: FUROSEMIDE ORAL SOLN 10 MG/ML ML GT SCH (08:15)
[2017-03-02] MEDS: POTASSIUM CHLORIDE 20 MEQ/15 ML ML GT SCH (08:15)
[2017-03-02] MEDS: MIDODRINE HCL (5MG) 5 MG TABLET GT SCH ×2 (08:15→21:27)
[2017-03-02] MEDS: PANTOPRAZOLE 40 MG/PACK PACK GT SCH (08:15)
[2017-03-02] MEDS: Z GUARD REMEDY 4 OZ OINT TP SCH ×6 (09:00→21:26)
--- NOTE | 2017-03-02 10:15 | NUR ---
Seen and examined by EFREN Serrano given at this time.
[2017-03-02] MEDS: ONDANSETRON 4 MG TAB.RAPDIS GT PRN ×2 (11:07→21:28)
--- NOTE | 2017-03-02 11:41 | NUR ---
WOUND CARE CONSULT: RECEIVED WOUND CONSULT FOR GLUTEAL CREASE EXCORIATION. PT NOT TURNED FOR SKIN ASSESSMENT DUE TO RECENT VOMITING PER RN REPORT. PT RESTING AT THIS TIME. REVIEWED PHOTO DOCUMENTATION AND CONCUR WITH CURRENT TREATMENT OF Z GUARD WITH MEPILEX. SKIN TO BE KEPT CLEAN AND DRY. DISCUSSED WITH NURSING STAFF. WILL SEE PRN. REDDING IN AGREEMENT WITH PLAN OF CARE.
--- NOTE | 2017-03-02 12:18 | NUR ---
Notified Dr. Nichole Dugan resident with episode of vomiting, moderate amount of formula like color, suctioned trach, no s/s of aspiration. New order given to start patient with Reglan 10mg. via GT Q 8 hours x 7 days. Resident's sister Judith notified of the episode of vomiting and new order, she stated that her mother will be here next week to sign admission papers.
--- NOTE | 2017-03-02 12:23 | NUR ---
Spoke to resident's conservator and mother (Sabrina Botello- [phone]) who stated that she will be here tomorrow to sign admission paperwork. She stated that she will let the charge nurse know when she arrives so that SW can be informed and bring the paperwork to her for explanation and signature.
[2017-03-02] MEDS: METOCLOPRAMIDE HCL 10 MG/10 ML UDC GT PRN (15:13)
[2017-03-02] MEDS: MULTIVIT, IRON, MIN NO. 8, FA 1 TAB GT SCH (21:26)
[2017-03-02] MEDS: SENNOSIDES 8.6 MG TABLET GT SCH (21:26)
[2017-03-02] MEDS: FAMOTIDINE (20 MG) 20 MG TABLET GT SCH (21:26)
--- NOTE | 2017-03-02 21:30 | NUR ---
Pt had an episode of vomiting, moderate amount, light brown color. Pt's sister at bedside. Checked GT placement. GT patent and in place. Residual of 60 cc noted. PRN Zofran 4 mg given via GT. Will continue to monitor.
[2017-03-03] MEDS: IPRATROPIUM NEB FS 0.5 MG/2.5 ML AMPUL.NEB IH SCH ×4 (01:04→19:39)
[2017-03-03] MEDS: ALBUTEROL FS 2.5 MG/0.5 ML VIAL.NEB NEB SCH ×4 (01:04→19:39)
[2017-03-03] MEDS: METOCLOPRAMIDE HCL 10 MG/10 ML UDC GT PRN (02:01)
[2017-03-03] MEDS: BACLOFEN (10 MG) 10 MG TABLET GT SCH ×2 (05:02→17:27)
[2017-03-03] MEDS: RENAL NOVASOURCE 1,000 ML BOTTLE GT PRN (05:03)
[2017-03-03] MEDS: Z GUARD REMEDY 4 OZ OINT TP SCH ×6 (09:00→21:59)
[2017-03-03] MEDS: POLYVINYL ALCOHOL 15 ML BOTTLE EACHEYE SCH ×2 (09:00→21:50)
[2017-03-03] MEDS: FUROSEMIDE ORAL SOLN 10 MG/ML ML GT SCH (09:00)
[2017-03-03] MEDS: POTASSIUM CHLORIDE 20 MEQ/15 ML ML GT SCH (09:00)
[2017-03-03] MEDS: PANTOPRAZOLE 40 MG/PACK PACK GT SCH (09:00)
[2017-03-03] MEDS: PROSTAT (PYXIS) 30 ML UDC GT SCH (09:00)
[2017-03-03] MEDS: MIDODRINE HCL (5MG) 5 MG TABLET GT SCH ×2 (09:00→21:50)
--- NOTE | 2017-03-03 11:30 | NUR ---
Notified Dr. Nichole Dugan that resident still having vomiting episode despite use of Reglan, KUB ordered. Resident's sister Judith who is visiting made aware of new order and patient's condition.
--- NOTE | 2017-03-03 11:44 | NUR ---
WOUND CARE CONSULT: PT PRESENTS WITH GLUTEAL CREASE EXCORIATION, MOISTURE RELATED, PRESENT ON ADMISSION. CONCUR WITH PRESENT TREATMENT PLAN OF Z GUARD AND MEPILEX, KEEP SKIN CLEAN AND DRY. DISCUSSED WITH NURSING STAFF. WILL SEE PREran REDDING IN AGREEMENT WITH PLAN OF CARE.
[2017-03-03] MEDS: METOCLOPRAMIDE HCL 10 MG/10 ML UDC GT SCH ×2 (13:00→21:50)
--- NOTE | 2017-03-03 15:30 | NUR ---
SW met with the resident's mother and conservator Sabrina and had her sign admission paperwork. Resident is to remain full code and she consented and agreed for resident to be treated by [facility]. Psychosocial Assessment was completed.
--- NOTE | 2017-03-03 17:30 | NUR ---
Resident's mother visited and asked if she would like patient to receive flu vaccine, she said that she will call her daughter Judith to discuss it with her first.
[2017-03-03 20:00] VITALS: BP 97/59
[2017-03-03] MEDS: MULTIVIT, IRON, MIN NO. 8, FA 1 TAB GT SCH (21:50)
[2017-03-03] MEDS: SENNOSIDES 8.6 MG TABLET GT SCH (21:52)
[2017-03-03] MEDS: FAMOTIDINE (20 MG) 20 MG TABLET GT SCH (21:52)
[2017-03-04] MEDS: IPRATROPIUM NEB FS 0.5 MG/2.5 ML AMPUL.NEB IH SCH ×4 (01:22→19:23)
[2017-03-04] MEDS: ALBUTEROL FS 2.5 MG/0.5 ML VIAL.NEB NEB SCH ×4 (01:22→19:23)
[2017-03-04] MEDS: BACLOFEN (10 MG) 10 MG TABLET GT SCH ×2 (05:54→18:00)
[2017-03-04] MEDS: METOCLOPRAMIDE HCL 10 MG/10 ML UDC GT SCH ×3 (05:54→21:58)
[2017-03-04] MEDS: RENAL NOVASOURCE 1,000 ML BOTTLE GT PRN (05:57)
[2017-03-04 07:24] VITALS: BP 100/59
[2017-03-04] MEDS: Z GUARD REMEDY 4 OZ OINT TP SCH ×6 (09:00→21:58)
[2017-03-04] MEDS: FUROSEMIDE ORAL SOLN 10 MG/ML ML GT SCH (09:00)
[2017-03-04] MEDS: POLYVINYL ALCOHOL 15 ML BOTTLE EACHEYE SCH ×2 (09:00→21:58)
[2017-03-04] MEDS: PANTOPRAZOLE 40 MG/PACK PACK GT SCH (09:00)
[2017-03-04] MEDS: MIDODRINE HCL (5MG) 5 MG TABLET GT SCH ×2 (09:00→21:58)
[2017-03-04] MEDS: POTASSIUM CHLORIDE 20 MEQ/15 ML ML GT SCH (09:00)
[2017-03-04] MEDS: PROSTAT (PYXIS) 30 ML UDC GT SCH (09:00)
--- NOTE | 2017-03-04 09:42 | NUR ---
Got a call from sister garry told that she don't want to give flu vaccine to resident now.refused flu vaccine.she will let us know when to give it later.
--- NOTE | 2017-03-04 13:00 | NUR ---
resident noted with cyst on the right foot.no redness ,no drainage noticed.notified X RAY OPERATOR.Cm Tenorio.received new order for warm compress for 7 days then re eval.noted and carried out.continue to monitor.responsible constitution party made aware.left message to sister garry.waiting to call back.
--- NOTE | 2017-03-04 13:00 | NUR ---
Seen by NIKI.Cm Tenorio.Relayed XR abdomen result.no new order at this time.
[2017-03-04] MEDS: SENNOSIDES 8.6 MG TABLET GT SCH (21:58)
[2017-03-04] MEDS: MULTIVIT, IRON, MIN NO. 8, FA 1 TAB GT SCH (21:58)
[2017-03-04] MEDS: FAMOTIDINE (20 MG) 20 MG TABLET GT SCH (21:58)
[2017-03-05] MEDS: ALBUTEROL FS 2.5 MG/0.5 ML VIAL.NEB NEB SCH ×4 (02:09→19:45)
[2017-03-05] MEDS: IPRATROPIUM NEB FS 0.5 MG/2.5 ML AMPUL.NEB IH SCH ×4 (02:09→19:45)
[2017-03-05] MEDS: METOCLOPRAMIDE HCL 10 MG/10 ML UDC GT SCH ×3 (05:25→21:35)
[2017-03-05] MEDS: BACLOFEN (10 MG) 10 MG TABLET GT SCH ×2 (05:25→17:45)
[2017-03-05] MEDS: RENAL NOVASOURCE 1,000 ML BOTTLE GT PRN (05:26)
[2017-03-05 08:15] VITALS: BP 100/75
[2017-03-05] MEDS: PROSTAT (PYXIS) 30 ML UDC GT SCH (09:00)
[2017-03-05] MEDS: PANTOPRAZOLE 40 MG/PACK PACK GT SCH (09:00)
[2017-03-05] MEDS: FUROSEMIDE ORAL SOLN 10 MG/ML ML GT SCH (09:00)
[2017-03-05] MEDS: MIDODRINE HCL (5MG) 5 MG TABLET GT SCH ×2 (09:00→21:35)
[2017-03-05] MEDS: POTASSIUM CHLORIDE 20 MEQ/15 ML ML GT SCH (09:00)
[2017-03-05] MEDS: Z GUARD REMEDY 4 OZ OINT TP SCH ×6 (09:00→21:35)
[2017-03-05] MEDS: POLYVINYL ALCOHOL 15 ML BOTTLE EACHEYE SCH ×2 (09:00→21:35)
[2017-03-05 16:47] LABS: ALBUMIN 2.5 g/dL (3.4-5.0); BILIRUBIN,TOTAL 0.2 mg/dL (0.2-1.0); TOTAL PROTEIN, SERUM 7.5 g/dL (6.4-8.2)
--- NOTE | 2017-03-05 17:31 | NUR ---
IDT meeting held, resident's sister, Judith attended. Reviewed current and new orders, treatment and labs. Family made aware that resident with episode of vomiting since admission, Reglan 10mg q 8 hours for 7 days was ordered and abdominal KUB was ordered by Dr. Nichole Dugan. No vomiting last night and today. Resident's cyst in the R plantar foot with order to apply warm compress x 7 days then re-eval by surgeon. Dr. Macario seen result of KUB, new order given to do labs Amylase and LFT's and to follow-up with GI. Attempted to call GI 3x , full. Nursing supervisor putty and caluking aware. Dr. Macario notified of Amylase and LFT's result with new order to do RUQ ultrasound in AM. Order noted and carried out.
[2017-03-05] MEDS: LACTULOSE 10 G/15 ML UDC (PYXIS) GT PRN (17:58)
[2017-03-05 20:23] VITALS: BP 99/53
[2017-03-05] MEDS: FAMOTIDINE (20 MG) 20 MG TABLET GT SCH (21:35)
[2017-03-05] MEDS: MULTIVIT, IRON, MIN NO. 8, FA 1 TAB GT SCH (21:35)
[2017-03-05] MEDS: SENNOSIDES 8.6 MG TABLET GT SCH (21:35)
[2017-03-06] MEDS: ALBUTEROL FS 2.5 MG/0.5 ML VIAL.NEB NEB SCH ×4 (02:15→19:50)
[2017-03-06] MEDS: IPRATROPIUM NEB FS 0.5 MG/2.5 ML AMPUL.NEB IH SCH ×4 (02:15→19:50)
[2017-03-06] MEDS: METOCLOPRAMIDE HCL 10 MG/10 ML UDC GT SCH ×3 (05:58→21:00)
[2017-03-06] MEDS: BACLOFEN (10 MG) 10 MG TABLET GT SCH ×2 (05:58→17:38)
[2017-03-06] MEDS ORDERED: OMEPRAZOLE 20 MG CAPSULE.DR GT SCH (06:00)
[2017-03-06] MEDS: RENAL NOVASOURCE 1,000 ML BOTTLE GT PRN (06:13)
[2017-03-06 07:21] VITALS: BP 93/59
[2017-03-06] MEDS: POLYVINYL ALCOHOL 15 ML BOTTLE EACHEYE SCH ×2 (08:55→21:00)
[2017-03-06] MEDS: POTASSIUM CHLORIDE 20 MEQ/15 ML ML GT SCH (08:56)
[2017-03-06] MEDS: FUROSEMIDE ORAL SOLN 10 MG/ML ML GT SCH (08:56)
[2017-03-06] MEDS: MIDODRINE HCL (5MG) 5 MG TABLET GT SCH ×2 (08:57→21:00)
[2017-03-06] MEDS: PROSTAT (PYXIS) 30 ML UDC GT SCH (08:57)
[2017-03-06] MEDS: Z GUARD REMEDY 4 OZ OINT TP SCH ×6 (08:57→21:00)
[2017-03-06 10:00] VITALS: BP 99/47
--- NOTE | 2017-03-06 11:10 | NUR ---
Notified Dr. Macario of the RUQ ultrasound result. stated to wait for GI. Place another call to Dr. Castro but unable to reach MD, Nursing load out supervisor gave the same # .
--- NOTE | 2017-03-06 12:50 | NUR ---
Dr. Alfaro passing by the [facility], informed him that resident with episode of vomiting and that ultrasound was done. He said to give PRN medication for N/V and will take care of it on Wednesday.
--- NOTE | 2017-03-06 18:10 | NUR ---
Left a message to Judith, sister to update her of patient's condition including vomiting episode x1 this morning and that ultrasound of RUQ done due to abnormal LFT's and Amylase. Dr. Macario ordered GI consult but unable reach the Dr. Castro, , answering machine says memory full. Advised nursing tar distillation supervisor.
--- NOTE | 2017-03-06 18:50 | NUR ---
Nursing sup gave a cell # for Dr. Castro and made aware of the reason for the call. Reported that LFT's and Amylase were done that led to ultrasound of the RUQ which shows dilated common bile duct measuring 1.5 cm. with 1.4 cm intraduct stone. Recommend f/u with MRCP and ERCP, Cholelithiasis without ultrasound evidence of cholecystitis. According to Dr. Castro to inform Dr. Alfaro who is conditioning machine operator. Left a message to Dr. Alfaro's to call back. Endorsed to incoming shift to inform Dr. Castro on Wednesday in case Dr. Alfaro did not see patient this weekend.
--- NOTE | 2017-03-06 19:30 | NUR ---
Judith, resident's sister return the call and updated her of patient's condition including result of RUQ ultrasound. She was made aware that we are awaiting GI consult at this time. Expressed appreciation of the information given.
[2017-03-06 19:53] VITALS: BP 100/60
[2017-03-06] MEDS: MULTIVIT, IRON, MIN NO. 8, FA 1 TAB GT SCH (21:00)
[2017-03-06] MEDS: FAMOTIDINE (20 MG) 20 MG TABLET GT SCH (22:00)
[2017-03-06] MEDS: SENNOSIDES 8.6 MG TABLET GT SCH (22:00)
[2017-03-07] MEDS: ALBUTEROL FS 2.5 MG/0.5 ML VIAL.NEB NEB SCH ×4 (01:19→20:09)
[2017-03-07] MEDS: IPRATROPIUM NEB FS 0.5 MG/2.5 ML AMPUL.NEB IH SCH ×4 (01:19→20:09)
[2017-03-07] MEDS: METOCLOPRAMIDE HCL 10 MG/10 ML UDC GT SCH ×3 (05:03→21:13)
[2017-03-07] MEDS: PREVACID (NF) 30 MG TAB GT SCH (05:04)
[2017-03-07] MEDS: BACLOFEN (10 MG) 10 MG TABLET GT SCH ×2 (05:04→17:49)
[2017-03-07 08:06] VITALS: BP 104/57
[2017-03-07] MEDS: POLYVINYL ALCOHOL 15 ML BOTTLE EACHEYE SCH ×2 (09:00→21:13)
[2017-03-07] MEDS: POTASSIUM CHLORIDE 20 MEQ/15 ML ML GT SCH (09:00)
[2017-03-07] MEDS: MIDODRINE HCL (5MG) 5 MG TABLET GT SCH ×2 (09:00→21:13)
[2017-03-07] MEDS: PROSTAT (PYXIS) 30 ML UDC GT SCH (09:00)
[2017-03-07] MEDS: Z GUARD REMEDY 4 OZ OINT TP SCH ×6 (09:00→21:14)
[2017-03-07] MEDS: FUROSEMIDE ORAL SOLN 10 MG/ML ML GT SCH (09:00)
--- NOTE | 2017-03-07 14:00 | NUR ---
Left a voice mail message to Dr. Alfaro regarding CT scan result. Awaiting for response. Followed up call made again, no call back yet. Will endorse to the next shift to call Dr. Castro for GI consult tomorrow morning.
--- NOTE | 2017-03-07 18:00 | NUR ---
Dr. Estrada passing by in the hallway and showed it to him the CT scan result he stated I haven't seen the patient and he suggested to let Dr. Castro's to see the patient in the morning. Will endorse to the next shift accordingly.
[2017-03-07 20:00] VITALS: BP 96/53
[2017-03-07] MEDS: MULTIVIT, IRON, MIN NO. 8, FA 1 TAB GT SCH (21:13)
[2017-03-07] MEDS: SENNOSIDES 8.6 MG TABLET GT SCH (21:14)
[2017-03-07] MEDS: FAMOTIDINE (20 MG) 20 MG TABLET GT SCH (21:14)
[2017-03-08] MEDS: RENAL NOVASOURCE 1,000 ML BOTTLE GT PRN (00:57)
[2017-03-08] MEDS: IPRATROPIUM NEB FS 0.5 MG/2.5 ML AMPUL.NEB IH SCH ×4 (01:37→20:20)
[2017-03-08] MEDS: ALBUTEROL FS 2.5 MG/0.5 ML VIAL.NEB NEB SCH ×4 (01:37→20:20)
[2017-03-08] MEDS: METOCLOPRAMIDE HCL 10 MG/10 ML UDC GT SCH (05:00)
[2017-03-08] MEDS: PREVACID (NF) 30 MG TAB GT SCH (06:27)
[2017-03-08] MEDS: BACLOFEN (10 MG) 10 MG TABLET GT SCH ×2 (06:27→18:00)
--- NOTE | 2017-03-08 09:51 | NUR ---
Called Dr. Castro's office for GI consult and left message with Tamie.
[2017-03-08] MEDS: POLYVINYL ALCOHOL 15 ML BOTTLE EACHEYE SCH ×2 (09:57→20:08)
[2017-03-08] MEDS: MIDODRINE HCL (5MG) 5 MG TABLET GT SCH ×2 (09:58→20:09)
[2017-03-08] MEDS: Z GUARD REMEDY 4 OZ OINT TP SCH ×6 (09:58→20:18)
[2017-03-08] MEDS: PROSTAT (PYXIS) 30 ML UDC GT SCH (09:58)
[2017-03-08] MEDS: FUROSEMIDE ORAL SOLN 10 MG/ML ML GT SCH (09:58)
[2017-03-08] MEDS: POTASSIUM CHLORIDE 20 MEQ/15 ML ML GT SCH (09:58)
--- NOTE | 2017-03-08 10:27 | NUR ---
Dr. Castro called. Notified him that Dr. Alfaro said to have him see the pt. Relayed liver US result to Dr. Castro again and received order to do MRCP.
--- NOTE | 2017-03-08 11:42 | NUR ---
Pt was seen by Dr. Castro. He reviewed pt's liver ultrasound and lab results. Received order to give Pancreatic enzymes via GT q 6 hours 36 K each time, Prochlorperazine maleate 10 mg via GT q 6 hours, DC Reglan, and DC MRCP. Notified pt's sister Judith.
[2017-03-08] MEDS ORDERED: PROCHLORPERAZINE MALEATE 10 MG TABLET GT PRN (13:00)
[2017-03-08] MEDS: MULTIVIT, IRON, MIN NO. 8, FA 1 TAB GT SCH (20:18)
[2017-03-08] MEDS: FAMOTIDINE (20 MG) 20 MG TABLET GT SCH (22:00)
[2017-03-08] MEDS: SENNOSIDES 8.6 MG TABLET GT SCH (22:00)
[2017-03-09] MEDS: PROCHLORPERAZINE MALEATE 10 MG TABLET GT SCH ×5 (00:26→23:46)
[2017-03-09] MEDS: PANCREATIC ENZYMES GT SCH ×5 (00:28→23:46)
[2017-03-09] MEDS: IPRATROPIUM NEB FS 0.5 MG/2.5 ML AMPUL.NEB IH SCH ×4 (01:32→19:30)
[2017-03-09] MEDS: ALBUTEROL FS 2.5 MG/0.5 ML VIAL.NEB NEB SCH ×4 (01:32→19:30)
[2017-03-09] MEDS: BACLOFEN (10 MG) 10 MG TABLET GT SCH ×2 (05:13→17:58)
[2017-03-09] MEDS: PREVACID (NF) 30 MG TAB GT SCH (05:13)
[2017-03-09] MEDS: RENAL NOVASOURCE 1,000 ML BOTTLE GT PRN (05:13)
[2017-03-09] MEDS: FUROSEMIDE ORAL SOLN 10 MG/ML ML GT SCH (09:41)
[2017-03-09] MEDS: MIDODRINE HCL (5MG) 5 MG TABLET GT SCH ×2 (09:41→20:23)
[2017-03-09] MEDS: Z GUARD REMEDY 4 OZ OINT TP SCH ×6 (09:41→20:23)
[2017-03-09] MEDS: POLYVINYL ALCOHOL 15 ML BOTTLE EACHEYE SCH ×2 (09:41→20:22)
[2017-03-09] MEDS: PROSTAT (PYXIS) 30 ML UDC GT SCH (09:41)
[2017-03-09] MEDS: POTASSIUM CHLORIDE 20 MEQ/15 ML ML GT SCH (09:41)
--- NOTE | 2017-03-09 10:50 | NUR ---
RT PT IS AWAKE BUT DOES NOT FOLLOW COMMANDS. MONTHLY TRACH CHANGE DONE WITH NEW SHILEY 6 XLT CUFFED TRACH. TRACH CHANGED WITH NO COMPLICATIONS. EQUAL BILATERAL BREATHE SOUNDS AND CHEST RISE. NO RESPIRATORY DISTRESS NOTED AT THIS TIME, WILL CONTINUE TO MONITOR. Addendum: 03/09/17 at 1742 by JAMISON BEATTY RT Amended: Links added.
[2017-03-09 20:03] VITALS: BP 94/64
[2017-03-09] MEDS: MULTIVIT, IRON, MIN NO. 8, FA 1 TAB GT SCH (20:23)
[2017-03-09] MEDS: SENNOSIDES 8.6 MG TABLET GT SCH (22:25)
[2017-03-09] MEDS: FAMOTIDINE (20 MG) 20 MG TABLET GT SCH (22:25)
[2017-03-10] MEDS: ALBUTEROL FS 2.5 MG/0.5 ML VIAL.NEB NEB SCH ×4 (01:25→19:16)
[2017-03-10] MEDS: IPRATROPIUM NEB FS 0.5 MG/2.5 ML AMPUL.NEB IH SCH ×4 (01:25→19:16)
[2017-03-10] MEDS: PANCREATIC ENZYMES GT SCH ×3 (05:03→17:27)
[2017-03-10] MEDS: PREVACID (NF) 30 MG TAB GT SCH (05:03)
[2017-03-10] MEDS: BACLOFEN (10 MG) 10 MG TABLET GT SCH ×2 (05:03→17:27)
[2017-03-10] MEDS: PROCHLORPERAZINE MALEATE 10 MG TABLET GT SCH ×3 (05:03→17:27)
[2017-03-10 07:32] VITALS: BP 95/63
[2017-03-10] MEDS: POTASSIUM CHLORIDE 20 MEQ/15 ML ML GT SCH (09:28)
[2017-03-10] MEDS: PROSTAT (PYXIS) 30 ML UDC GT SCH (09:28)
[2017-03-10] MEDS: Z GUARD REMEDY 4 OZ OINT TP SCH ×6 (09:28→21:19)
[2017-03-10] MEDS: POLYVINYL ALCOHOL 15 ML BOTTLE EACHEYE SCH ×2 (09:28→21:18)
[2017-03-10] MEDS: MIDODRINE HCL (5MG) 5 MG TABLET GT SCH ×2 (09:28→21:19)
[2017-03-10] MEDS: FUROSEMIDE ORAL SOLN 10 MG/ML ML GT SCH (09:28)
--- NOTE | 2017-03-10 09:45 | NUR ---
Seen and examined by Dr. Nichole Dugan, notified of cyst in patient's R plantar foot, She said to continue to apply warm compress and refer to costumed character entertainer. She asked whether it bothers patient, no grimacing noted when touched however inform MD that family is concern about it. She said that it can be aspirated but if will eventually come back. SSD to notify costumed character entertainer. Addendum: 03/10/17 at 1150 by BRIDGETT MORIN RN Dr. Dugan also made aware that RUQ ultrasound was done, due to elevated levels of LTS's and Amylase, ROBERTO CARLOS Hardy on the case. Resident no vomiting episode this shift.
--- NOTE | 2017-03-10 09:50 | NUR ---
Informed by charge nurse that resident in need of a podiatry consult as resident has a cyst on her right foot. Informed Dr. Monsivais who stated that he would come see the resident. Informed sister Judith.
--- NOTE | 2017-03-10 11:50 | NUR ---
Seen and examined by Dr. Culp lab systems analyst and assess the mass/cyst in the R foot. He spoke with patient's sister Judith on the phone and discuss what he plans to do. He said he would like to order some form of imaging like MRI however the patient needs to be completely still and if there is any movement the result may not be reliable. He told her he will be worried if the skin is open and draining, at this time skin is intact and no drainage. It was also mentioned to Judith that if there is something he sees, he might do a surgery and it is big procedure. Meanwhile spoke with Aster from admitting inquiring if patient's insurance will require authorization for either MRI or CT scan of the R foot. Admitting will review patient's insurance and will get back to this nurse. According to Dr. Rose, this is not urgent, imaging can be done whenever we get authorization.
--- NOTE | 2017-03-10 12:39 | NUR ---
Informed sister Judith that resident will be moved to an ICU room while they make upgrades to resident's current room. was informed to check in with the charge nurse when visiting to see what room resident was assigned to. Appreciated the information.
[2017-03-10 19:52] VITALS: BP 97/55
[2017-03-10] MEDS: FAMOTIDINE (20 MG) 20 MG TABLET GT SCH (21:19)
[2017-03-10] MEDS: SENNOSIDES 8.6 MG TABLET GT SCH (21:19)
[2017-03-10] MEDS: MULTIVIT, IRON, MIN NO. 8, FA 1 TAB GT SCH (21:19)
[2017-03-11] MEDS: PANCREATIC ENZYMES GT SCH ×5 (00:11→23:35)
[2017-03-11] MEDS: PROCHLORPERAZINE MALEATE 10 MG TABLET GT SCH ×5 (00:11→23:35)
[2017-03-11] MEDS: IPRATROPIUM NEB FS 0.5 MG/2.5 ML AMPUL.NEB IH SCH ×4 (01:23→20:01)
[2017-03-11] MEDS: ALBUTEROL FS 2.5 MG/0.5 ML VIAL.NEB NEB SCH ×4 (01:23→20:01)
[2017-03-11] MEDS: PREVACID (NF) 30 MG TAB GT SCH (05:08)
[2017-03-11] MEDS: BACLOFEN (10 MG) 10 MG TABLET GT SCH ×2 (05:08→17:55)
[2017-03-11] MEDS: RENAL NOVASOURCE 1,000 ML BOTTLE GT PRN (05:09)
[2017-03-11 07:56] VITALS: BP 98/59
[2017-03-11] MEDS: FUROSEMIDE ORAL SOLN 10 MG/ML ML GT SCH (09:00)
[2017-03-11] MEDS: LACTULOSE 10 G/15 ML UDC (PYXIS) GT PRN ×2 (09:00→21:37)
[2017-03-11] MEDS: POTASSIUM CHLORIDE 20 MEQ/15 ML ML GT SCH (09:53)
[2017-03-11] MEDS: POLYVINYL ALCOHOL 15 ML BOTTLE EACHEYE SCH ×2 (09:53→21:36)
[2017-03-11] MEDS: Z GUARD REMEDY 4 OZ OINT TP SCH ×6 (09:54→21:36)
[2017-03-11] MEDS: MIDODRINE HCL (5MG) 5 MG TABLET GT SCH ×2 (09:54→21:36)
[2017-03-11] MEDS: PROSTAT (PYXIS) 30 ML UDC GT SCH (09:54)
[2017-03-11 10:00] VITALS: BP 96/40
[2017-03-11] MEDS: FAMOTIDINE (20 MG) 20 MG TABLET GT SCH (21:36)
[2017-03-11] MEDS: MULTIVIT, IRON, MIN NO. 8, FA 1 TAB GT SCH (21:36)
[2017-03-11] MEDS: SENNOSIDES 8.6 MG TABLET GT SCH (21:36)
[2017-03-11 22:48] VITALS: BP 83/51
[2017-03-12] MEDS: IPRATROPIUM NEB FS 0.5 MG/2.5 ML AMPUL.NEB IH SCH ×4 (01:53→20:00)
[2017-03-12] MEDS: ALBUTEROL FS 2.5 MG/0.5 ML VIAL.NEB NEB SCH ×4 (01:53→20:04)
[2017-03-12] MEDS: PROCHLORPERAZINE MALEATE 10 MG TABLET GT SCH ×4 (05:34→23:39)
[2017-03-12] MEDS: PANCREATIC ENZYMES GT SCH ×4 (05:34→23:39)
[2017-03-12] MEDS: BISACODYL SUPP (10 MG) 10 MG/SUPP.RECT SUPP.RECT RC PRN (05:35)
[2017-03-12] MEDS: RENAL NOVASOURCE 1,000 ML BOTTLE GT PRN (05:35)
[2017-03-12] MEDS: BACLOFEN (10 MG) 10 MG TABLET GT SCH ×2 (05:35→17:54)
[2017-03-12] MEDS: PREVACID (NF) 30 MG TAB GT SCH (05:35)
[2017-03-12 08:00] VITALS: BP 125/72
--- NOTE | 2017-03-12 08:40 | NUR ---
PT HR ELEVATED > 150 BPM. RN AWARE. ALB NOT GIVEN. WILL CONTINUE TO MONITOR. Addendum: 03/12/17 at 0842 by CHIRAG MENDEZ RT Amended: Links added.
[2017-03-12] MEDS: POLYVINYL ALCOHOL 15 ML BOTTLE EACHEYE SCH ×2 (09:00→20:57)
[2017-03-12] MEDS: PROSTAT (PYXIS) 30 ML UDC GT SCH (09:00)
[2017-03-12] MEDS: FUROSEMIDE ORAL SOLN 10 MG/ML ML GT SCH (09:00)
[2017-03-12] MEDS: MIDODRINE HCL (5MG) 5 MG TABLET GT SCH ×2 (09:00→20:57)
[2017-03-12] MEDS: Z GUARD REMEDY 4 OZ OINT TP SCH ×6 (09:00→20:57)
[2017-03-12] MEDS: POTASSIUM CHLORIDE 20 MEQ/15 ML ML GT SCH (09:00)
--- NOTE | 2017-03-12 10:00 | NUR ---
Recheck resident's V/S, HR 118 slowly going down, B/P 99/63, T 98.1. Will continue to monitor.
--- NOTE | 2017-03-12 10:50 | NUR ---
Made a follow-up call with admitting to find out if resident's insurance requires authorization for MRI. Left a message to Dr. Culp if he wants to order MRI. Awaiting for order.
--- NOTE | 2017-03-12 12:30 | NUR ---
Obtain order from Dr. Culp for R foot ultrasound and he said he will review if additional imaging is needed such as MRI. Order noted and carried out.
--- NOTE | 2017-03-12 14:00 | NUR ---
IDT meeting held, reviewed current and new orders, medications, treatment and labs., Family, Judith participated via phone conference, acknowledged that she spoke with video intern and the plan is to do some kind of imaging to evaluate the mass in her R foot. Inform Judith, that video intern gave an order to do an ultrasound of the R foot and he will review the result. She was made aware the Dr. Castro, supervisor prop making is following the patient and reported patient did not have any vomiting episode last night and today. However her HR in the morning >150, but slowly going down. Current HR 108, and BP 94/56. Will continue to monitor B/P and HR.
--- NOTE | 2017-03-12 14:30 | NUR ---
Notified Dr. Macario resident's HR 106 but B/P 84/44. New order given to give IV 500 ml NS to run x 1 hour. HL inserted in the L hand, G # 24 x1 attempt with good blood return. IVF 500 ml NS started.
--- NOTE | 2017-03-12 18:00 | NUR ---
Notified Judith, sister, resident was given IVF NS 500ml due to hypotension, current BP, 104/56, appreciated the call.
[2017-03-12] MEDS ORDERED: IV NS 0.9% 500 ML IV ONE (19:30)
[2017-03-12] MEDS: MULTIVIT, IRON, MIN NO. 8, FA 1 TAB GT SCH (20:57)
[2017-03-12] MEDS: FAMOTIDINE (20 MG) 20 MG TABLET GT SCH (21:00)
[2017-03-12] MEDS: SENNOSIDES 8.6 MG TABLET GT SCH (21:00)
[2017-03-12 23:20] VITALS: BP 83/53
[2017-03-12 23:48] VITALS: BP 83/55
[2017-03-13 03:18] VITALS: BP 92/58
[2017-03-13] MEDS: PROCHLORPERAZINE MALEATE 10 MG TABLET GT SCH ×4 (05:40→23:39)
[2017-03-13] MEDS: PREVACID (NF) 30 MG TAB GT SCH (05:40)
[2017-03-13] MEDS: PANCREATIC ENZYMES GT SCH ×4 (05:40→23:39)
[2017-03-13] MEDS: BACLOFEN (10 MG) 10 MG TABLET GT SCH ×2 (05:40→17:46)
[2017-03-13] MEDS: RENAL NOVASOURCE 1,000 ML BOTTLE GT PRN (05:41)
[2017-03-13 07:38] VITALS: BP 71/48
[2017-03-13] MEDS: ALBUTEROL FS 2.5 MG/0.5 ML VIAL.NEB NEB SCH ×2 (07:48→19:30)
[2017-03-13] MEDS: IPRATROPIUM NEB FS 0.5 MG/2.5 ML AMPUL.NEB IH SCH ×2 (07:48→19:30)
[2017-03-13] MEDS: MIDODRINE HCL (5MG) 5 MG TABLET GT SCH ×2 (08:30→21:01)
[2017-03-13] MEDS: Z GUARD REMEDY 4 OZ OINT TP SCH ×6 (08:30→21:03)
[2017-03-13] MEDS: POLYVINYL ALCOHOL 15 ML BOTTLE EACHEYE SCH ×2 (08:30→21:01)
[2017-03-13] MEDS: PROSTAT (PYXIS) 30 ML UDC GT SCH (08:30)
[2017-03-13] MEDS: POTASSIUM CHLORIDE 20 MEQ/15 ML ML GT SCH (08:30)
[2017-03-13 09:41] VITALS: BP 92/30
[2017-03-13] MEDS ORDERED: IV NS 0.9% 500 ML IV ONE (11:00)
[2017-03-13] MEDS: LACTULOSE 10 G/15 ML UDC (PYXIS) GT PRN (18:00)
--- NOTE | 2017-03-13 18:00 | NUR ---
Notified Judith, sister resident was given, IVF due to B/P that is in the systolic in low 80's/ diastolic low 40's and was given order by Dr. Nichole Dugan to give another 500 ml of NS. Current B/P 94/56. Judith became upset claiming that the new medication Pancreatic ensyme might be causing her B/P to go down. She stated this is a new medication that she is getting and she wants to know how long she will be on it. Explained to Judith that according to Dr. Castro, gis administrator she will stay on it while she is on Prevacid. At the moment patient does not have any episode of vomiting for the past 2-3 days. Judith siad that since she is asymptomatic the medication can be discontinued. Explained to sister this could be the reason why she is not vomiting because of the enzyme and Compazine, advised to family to speak with gis administrator if she has concerns with the medications. Endorsed to f/u with MD on Wednesday. Resident's other sister Bree at the bedside and advised to inform nurses if she observe patient with episode of vomiting, because Judith stated her sister claims she has vomiting episode vs saliva with secretions.
[2017-03-13 19:25] VITALS: BP 83/65
[2017-03-13] MEDS: MULTIVIT, IRON, MIN NO. 8, FA 1 TAB GT SCH (21:03)
[2017-03-13] MEDS: SENNOSIDES 8.6 MG TABLET GT SCH (21:04)
[2017-03-13] MEDS: FAMOTIDINE (20 MG) 20 MG TABLET GT SCH (21:04)
[2017-03-13 23:46] VITALS: BP 84/52
[2017-03-14] MEDS: PREVACID (NF) 30 MG TAB GT SCH (05:11)
[2017-03-14] MEDS: LACTULOSE 10 G/15 ML UDC (PYXIS) GT PRN ×2 (05:11→17:00)
[2017-03-14] MEDS: BACLOFEN (10 MG) 10 MG TABLET GT SCH ×2 (05:11→17:03)
[2017-03-14] MEDS: PANCREATIC ENZYMES GT SCH ×4 (05:11→23:17)
[2017-03-14] MEDS: PROCHLORPERAZINE MALEATE 10 MG TABLET GT SCH ×4 (05:11→23:17)
[2017-03-14] MEDS: RENAL NOVASOURCE 1,000 ML BOTTLE GT PRN (05:11)
[2017-03-14 07:28] VITALS: BP 102/53
[2017-03-14] MEDS: IPRATROPIUM NEB FS 0.5 MG/2.5 ML AMPUL.NEB IH SCH ×2 (08:22→19:24)
[2017-03-14] MEDS: ALBUTEROL FS 2.5 MG/0.5 ML VIAL.NEB NEB SCH ×2 (08:22→19:24)
[2017-03-14] MEDS: Z GUARD REMEDY 4 OZ OINT TP SCH ×6 (08:24→21:31)
[2017-03-14] MEDS: MIDODRINE HCL (5MG) 5 MG TABLET GT SCH ×2 (08:24→21:31)
[2017-03-14] MEDS: PROSTAT (PYXIS) 30 ML UDC GT SCH (08:24)
[2017-03-14] MEDS: POTASSIUM CHLORIDE 20 MEQ/15 ML ML GT SCH (08:24)
[2017-03-14] MEDS: POLYVINYL ALCOHOL 15 ML BOTTLE EACHEYE SCH ×2 (08:24→21:30)
[2017-03-14] MEDS: NYSTATIN TOP POWDER 15 GM BOTTLE TP SCH ×2 (09:00→21:30)
[2017-03-14 20:11] VITALS: BP 110/74
[2017-03-14] MEDS: MULTIVIT, IRON, MIN NO. 8, FA 1 TAB GT SCH (21:30)
[2017-03-14] MEDS: FAMOTIDINE (20 MG) 20 MG TABLET GT SCH (21:31)
[2017-03-14] MEDS: SENNOSIDES 8.6 MG TABLET GT SCH (21:31)
[2017-03-14] MEDS: BISACODYL SUPP (10 MG) 10 MG/SUPP.RECT SUPP.RECT RC PRN (21:44)
[2017-03-15] MEDS: PROCHLORPERAZINE MALEATE 10 MG TABLET GT SCH ×4 (05:09→23:21)
[2017-03-15] MEDS: BACLOFEN (10 MG) 10 MG TABLET GT SCH ×2 (05:09→17:22)
[2017-03-15] MEDS: PANCREATIC ENZYMES GT SCH ×4 (05:09→23:21)
[2017-03-15] MEDS: PREVACID (NF) 30 MG TAB GT SCH (05:09)
[2017-03-15] MEDS: RENAL NOVASOURCE 1,000 ML BOTTLE GT PRN (05:17)
[2017-03-15 07:42] VITALS: BP 110/68
[2017-03-15] MEDS: IPRATROPIUM NEB FS 0.5 MG/2.5 ML AMPUL.NEB IH SCH ×2 (08:03→19:30)
[2017-03-15] MEDS: ALBUTEROL FS 2.5 MG/0.5 ML VIAL.NEB NEB SCH ×2 (08:03→19:30)
[2017-03-15] MEDS: PROSTAT (PYXIS) 30 ML UDC GT SCH (09:00)
[2017-03-15] MEDS: NYSTATIN TOP POWDER 15 GM BOTTLE TP SCH ×2 (09:00→20:23)
[2017-03-15] MEDS: MIDODRINE HCL (5MG) 5 MG TABLET GT SCH ×2 (09:00→20:23)
[2017-03-15] MEDS: Z GUARD REMEDY 4 OZ OINT TP SCH ×6 (09:00→20:24)
[2017-03-15] MEDS: POTASSIUM CHLORIDE 20 MEQ/15 ML ML GT SCH (09:00)
[2017-03-15] MEDS: POLYVINYL ALCOHOL 15 ML BOTTLE EACHEYE SCH ×2 (09:00→20:23)
--- NOTE | 2017-03-15 09:12 | NUR ---
Social Service Section of [facility] completed (1st quarter). Resident is non communicative but opens her eyes but cannot track. Sister Judith and mother Sabrina are involved in her care. Sister visits frequently.
--- NOTE | 2017-03-15 10:04 | NUR ---
Called Dr. Castro's office. Pt's sister Judith wanted to speak with him. Left message for Dr. Castro with Jyoti.
--- NOTE | 2017-03-15 10:53 | NUR ---
Relayed right foot ultrasound result to Dr. Dugan. No new order.
--- NOTE | 2017-03-15 10:55 | NUR ---
Called Dr. Garzon's office to relayed right foot ultrasound result. Dr. Garzon off today. Addendum: 03/15/17 at 1058 by MIGUELANGEL REEDER RN relay
--- NOTE | 2017-03-15 13:13 | NUR ---
SEEN BY NIKI GARG WITH NO ORDERS AT THIS TIME.
[2017-03-15] MEDS: MULTIVIT, IRON, MIN NO. 8, FA 1 TAB GT SCH (20:23)
[2017-03-15 20:54] VITALS: BP 91/50
[2017-03-15] MEDS: FAMOTIDINE (20 MG) 20 MG TABLET GT SCH (21:30)
[2017-03-15] MEDS: SENNOSIDES 8.6 MG TABLET GT SCH (21:30)
[2017-03-16] MEDS: PROCHLORPERAZINE MALEATE 10 MG TABLET GT SCH ×4 (05:24→23:12)
[2017-03-16] MEDS: PREVACID (NF) 30 MG TAB GT SCH (05:24)
[2017-03-16] MEDS: BACLOFEN (10 MG) 10 MG TABLET GT SCH ×2 (05:24→17:46)
[2017-03-16] MEDS: PANCREATIC ENZYMES GT SCH ×4 (05:24→23:12)
[2017-03-16] MEDS: ALBUTEROL FS 2.5 MG/0.5 ML VIAL.NEB NEB SCH ×2 (07:26→20:12)
[2017-03-16] MEDS: IPRATROPIUM NEB FS 0.5 MG/2.5 ML AMPUL.NEB IH SCH ×2 (07:26→20:12)
[2017-03-16 08:09] VITALS: BP 84/52
[2017-03-16] MEDS: POLYVINYL ALCOHOL 15 ML BOTTLE EACHEYE SCH ×2 (09:09→21:21)
[2017-03-16] MEDS: POTASSIUM CHLORIDE 20 MEQ/15 ML ML GT SCH (09:10)
[2017-03-16] MEDS: MIDODRINE HCL (5MG) 5 MG TABLET GT SCH ×2 (09:10→21:21)
[2017-03-16] MEDS: PROSTAT (PYXIS) 30 ML UDC GT SCH (09:12)
[2017-03-16] MEDS: Z GUARD REMEDY 4 OZ OINT TP SCH ×6 (09:12→21:21)
[2017-03-16] MEDS: NYSTATIN TOP POWDER 15 GM BOTTLE TP SCH ×2 (09:12→21:21)
--- NOTE | 2017-03-16 10:26 | NUR ---
Called Dr. Garzon's office to relay right foot ultrasound result. Left message with Hermann. Waiting for Dr. Garzon to call back.
--- NOTE | 2017-03-16 11:00 | NUR ---
Dr. Garzon called. Relayed right foot ultrasound result to him. He said he will do an incisional aspiration for the small abscess.
[2017-03-16] MEDS ORDERED: LIDOCAINE 1% INJ 50 ML MDV IJ ONE (12:30)
[2017-03-16 20:36] VITALS: BP 95/75
[2017-03-16] MEDS: FAMOTIDINE (20 MG) 20 MG TABLET GT SCH (21:21)
[2017-03-16] MEDS: SENNOSIDES 8.6 MG TABLET GT SCH (21:21)
[2017-03-16] MEDS: MULTIVIT, IRON, MIN NO. 8, FA 1 TAB GT SCH (21:21)
[2017-03-16] MEDS: RENAL NOVASOURCE 1,000 ML BOTTLE GT PRN (22:36)
[2017-03-17] MEDS: BACLOFEN (10 MG) 10 MG TABLET GT SCH ×2 (05:44→18:20)
[2017-03-17] MEDS: PROCHLORPERAZINE MALEATE 10 MG TABLET GT SCH ×4 (05:44→23:35)
[2017-03-17] MEDS: PREVACID (NF) 30 MG TAB GT SCH (05:44)
[2017-03-17] MEDS: PANCREATIC ENZYMES GT SCH ×4 (05:44→23:35)
[2017-03-17] MEDS: IPRATROPIUM NEB FS 0.5 MG/2.5 ML AMPUL.NEB IH SCH ×2 (07:45→19:26)
[2017-03-17] MEDS: ALBUTEROL FS 2.5 MG/0.5 ML VIAL.NEB NEB SCH ×2 (07:45→19:26)
[2017-03-17] MEDS: POLYVINYL ALCOHOL 15 ML BOTTLE EACHEYE SCH ×2 (09:00→20:23)
[2017-03-17] MEDS: PROSTAT (PYXIS) 30 ML UDC GT SCH (09:00)
[2017-03-17] MEDS: POTASSIUM CHLORIDE 20 MEQ/15 ML ML GT SCH (09:00)
[2017-03-17] MEDS: NYSTATIN TOP POWDER 15 GM BOTTLE TP SCH ×2 (09:00→20:24)
[2017-03-17] MEDS: MIDODRINE HCL (5MG) 5 MG TABLET GT SCH ×2 (09:00→20:24)
[2017-03-17] MEDS: Z GUARD REMEDY 4 OZ OINT TP SCH ×6 (09:00→20:24)
--- NOTE | 2017-03-17 10:00 | NUR ---
Notified Dr. Macario resident with following B/P this morning 78/38, 78/44, and it went up to 96/56, 94/43 by placing patient in Trendelenburg position. New order given to give patient I L of NS at 100cc/hr. Order noted and carried out.
[2017-03-17] MEDS ORDERED: IV NS 0.9% 1,000 ML IV SCH (12:00)
[2017-03-17 13:00] VITALS: BP 91/62
--- NOTE | 2017-03-17 13:35 | NUR ---
Notified Dr. Quintana, GI, patient vomited x 1 moderate amount yellow-orange color & that resident's sister would like to talk to him with regards to the use of pancreatic enzyme. Resident's sister claims patient's B/P has been running low from the time she started the pancreatic enzyme medication. Judith's phone # given to MD. Wong notified of the IVF order due to hypotension and to expect a call from Dr. Quintana so he can answer her concerns. Appreciated the call.
--- NOTE | 2017-03-17 13:51 | NUR ---
Spoke to the resident's sister Judith and asked if she would like for resident to get her annual dental exam and cleaning. She stated that this was fine. refuge worker spoke to Mystery at the office of Dr. Colon ([phone]) and she stated that Dr. Lewis can come on Wednesday March 22, 2017 to do the exam/cleaning. Sister Judith informed.
[2017-03-17 15:20] VITALS: BP 107/64
--- NOTE | 2017-03-17 15:30 | NUR ---
Seen and examined by EFREN Pinedo given.
[2017-03-17 20:23] VITALS: BP 99/62
[2017-03-17] MEDS: MULTIVIT, IRON, MIN NO. 8, FA 1 TAB GT SCH (20:24)
[2017-03-17] MEDS: SENNOSIDES 8.6 MG TABLET GT SCH (21:08)
[2017-03-17] MEDS: FAMOTIDINE (20 MG) 20 MG TABLET GT SCH (21:08)
[2017-03-18] MEDS: PANCREATIC ENZYMES GT SCH ×3 (05:51→17:53)
[2017-03-18] MEDS: PREVACID (NF) 30 MG TAB GT SCH (05:51)
[2017-03-18] MEDS: BACLOFEN (10 MG) 10 MG TABLET GT SCH ×2 (05:51→17:53)
[2017-03-18] MEDS: PROCHLORPERAZINE MALEATE 10 MG TABLET GT SCH ×3 (05:51→17:52)
[2017-03-18] MEDS: IPRATROPIUM NEB FS 0.5 MG/2.5 ML AMPUL.NEB IH SCH ×2 (07:25→20:20)
[2017-03-18] MEDS: ALBUTEROL FS 2.5 MG/0.5 ML VIAL.NEB NEB SCH ×2 (07:25→20:20)
[2017-03-18 07:41] VITALS: BP 104/60
[2017-03-18] MEDS: MIDODRINE HCL (5MG) 5 MG TABLET GT SCH ×2 (09:45→21:18)
[2017-03-18] MEDS: POTASSIUM CHLORIDE 20 MEQ/15 ML ML GT SCH (09:47)
[2017-03-18] MEDS: POLYVINYL ALCOHOL 15 ML BOTTLE EACHEYE SCH ×2 (09:47→21:18)
[2017-03-18] MEDS: PROSTAT (PYXIS) 30 ML UDC GT SCH (09:47)
[2017-03-18] MEDS: Z GUARD REMEDY 4 OZ OINT TP SCH ×6 (09:49→21:19)
[2017-03-18] MEDS: NYSTATIN TOP POWDER 15 GM BOTTLE TP SCH ×2 (09:50→21:18)
[2017-03-18 19:52] VITALS: BP 103/65
[2017-03-18] MEDS: MULTIVIT, IRON, MIN NO. 8, FA 1 TAB GT SCH (21:18)
[2017-03-18] MEDS: FAMOTIDINE (20 MG) 20 MG TABLET GT SCH (21:19)
[2017-03-18] MEDS: SENNOSIDES 8.6 MG TABLET GT SCH (21:19)
[2017-03-19] MEDS: RENAL NOVASOURCE 1,000 ML BOTTLE GT PRN (00:29)
[2017-03-19] MEDS: PREVACID (NF) 30 MG TAB GT SCH (06:00)
[2017-03-19 07:30] VITALS: BP 87/52
[2017-03-19 08:30] VITALS: BP 95/67
[2017-03-19] MEDS: MIDODRINE HCL (5MG) 5 MG TABLET GT SCH ×2 (09:00→20:34)
[2017-03-19] MEDS: Z GUARD REMEDY 4 OZ OINT TP SCH ×6 (09:00→20:35)
[2017-03-19] MEDS: PROSTAT (PYXIS) 30 ML UDC GT SCH (09:00)
[2017-03-19] MEDS: POLYVINYL ALCOHOL 15 ML BOTTLE EACHEYE SCH ×2 (09:00→20:32)
[2017-03-19] MEDS: NYSTATIN TOP POWDER 15 GM BOTTLE TP SCH ×2 (09:00→20:34)
[2017-03-19] MEDS: POTASSIUM CHLORIDE 20 MEQ/15 ML ML GT SCH (09:00)
[2017-03-19] MEDS: PROCHLORPERAZINE MALEATE 10 MG TABLET GT SCH ×5 (12:00→23:55)
[2017-03-19] MEDS: PANCREATIC ENZYMES GT SCH ×5 (12:00→23:55)
[2017-03-19] MEDS: BACLOFEN (10 MG) 10 MG TABLET GT SCH ×2 (18:00→18:08)
[2017-03-19] MEDS: LACTULOSE 10 G/15 ML UDC (PYXIS) GT PRN (18:52)
[2017-03-19] MEDS: IPRATROPIUM NEB FS 0.5 MG/2.5 ML AMPUL.NEB IH SCH (19:32)
[2017-03-19] MEDS: ALBUTEROL FS 2.5 MG/0.5 ML VIAL.NEB NEB SCH (19:32)
[2017-03-19 19:54] VITALS: BP 95/57
[2017-03-19] MEDS: MULTIVIT, IRON, MIN NO. 8, FA 1 TAB GT SCH (20:34)
[2017-03-19] MEDS: SENNOSIDES 8.6 MG TABLET GT SCH (21:41)
[2017-03-19] MEDS: FAMOTIDINE (20 MG) 20 MG TABLET GT SCH (21:41)
[2017-03-20] MEDS: PANCREATIC ENZYMES GT SCH ×4 (05:04→23:05)
[2017-03-20] MEDS: PROCHLORPERAZINE MALEATE 10 MG TABLET GT SCH ×4 (05:04→23:05)
[2017-03-20] MEDS: BACLOFEN (10 MG) 10 MG TABLET GT SCH ×2 (05:06→17:40)
[2017-03-20] MEDS: PREVACID (NF) 30 MG TAB GT SCH ×2 (05:54→06:00)
[2017-03-20] MEDS: ALBUTEROL FS 2.5 MG/0.5 ML VIAL.NEB NEB SCH ×2 (06:56→19:30)
[2017-03-20] MEDS: IPRATROPIUM NEB FS 0.5 MG/2.5 ML AMPUL.NEB IH SCH ×2 (06:56→19:30)
[2017-03-20 07:37] VITALS: BP 92/49
[2017-03-20] MEDS: POLYVINYL ALCOHOL 15 ML BOTTLE EACHEYE SCH ×2 (08:47→20:40)
[2017-03-20] MEDS: POTASSIUM CHLORIDE 20 MEQ/15 ML ML GT SCH (08:47)
[2017-03-20] MEDS: MIDODRINE HCL (5MG) 5 MG TABLET GT SCH ×2 (08:48→20:41)
[2017-03-20] MEDS: PROSTAT (PYXIS) 30 ML UDC GT SCH (08:48)
[2017-03-20] MEDS: NYSTATIN TOP POWDER 15 GM BOTTLE TP SCH ×2 (08:48→20:41)
[2017-03-20] MEDS: Z GUARD REMEDY 4 OZ OINT TP SCH ×6 (08:48→20:41)
[2017-03-20] MEDS: RENAL NOVASOURCE 1,000 ML BOTTLE GT PRN (17:40)
[2017-03-20] MEDS: BISACODYL SUPP (10 MG) 10 MG/SUPP.RECT SUPP.RECT RC PRN (18:30)
[2017-03-20 19:49] VITALS: BP 98/56
[2017-03-20] MEDS: MULTIVIT, IRON, MIN NO. 8, FA 1 TAB GT SCH (20:41)
[2017-03-20] MEDS: FAMOTIDINE (20 MG) 20 MG TABLET GT SCH (22:13)
[2017-03-20] MEDS: SENNOSIDES 8.6 MG TABLET GT SCH (22:13)
[2017-03-21] MEDS: LACTULOSE 10 G/15 ML UDC (PYXIS) GT PRN (01:36)
[2017-03-21] MEDS: PANCREATIC ENZYMES GT SCH ×3 (05:20→18:28)
[2017-03-21] MEDS: PREVACID (NF) 30 MG TAB GT SCH (05:20)
[2017-03-21] MEDS: RENAL NOVASOURCE 1,000 ML BOTTLE GT PRN (05:20)
[2017-03-21] MEDS: BACLOFEN (10 MG) 10 MG TABLET GT SCH ×2 (05:20→18:29)
[2017-03-21] MEDS: PROCHLORPERAZINE MALEATE 10 MG TABLET GT SCH ×3 (05:20→18:28)
[2017-03-21] MEDS: ALBUTEROL FS 2.5 MG/0.5 ML VIAL.NEB NEB SCH ×2 (07:25→20:13)
[2017-03-21] MEDS: IPRATROPIUM NEB FS 0.5 MG/2.5 ML AMPUL.NEB IH SCH ×2 (07:25→20:13)
[2017-03-21 08:32] VITALS: BP 70/52
[2017-03-21] MEDS: MIDODRINE HCL (5MG) 5 MG TABLET GT SCH ×2 (09:45→21:29)
[2017-03-21] MEDS: POTASSIUM CHLORIDE 20 MEQ/15 ML ML GT SCH (09:47)
[2017-03-21] MEDS: POLYVINYL ALCOHOL 15 ML BOTTLE EACHEYE SCH ×2 (09:48→21:28)
[2017-03-21] MEDS: PROSTAT (PYXIS) 30 ML UDC GT SCH (09:51)
[2017-03-21] MEDS: Z GUARD REMEDY 4 OZ OINT TP SCH ×6 (09:52→21:29)
[2017-03-21 10:15] VITALS: BP 109/66
[2017-03-21 19:48] VITALS: BP 94/63
[2017-03-21] MEDS: FAMOTIDINE (20 MG) 20 MG TABLET GT SCH (21:29)
[2017-03-21] MEDS: MULTIVIT, IRON, MIN NO. 8, FA 1 TAB GT SCH (21:29)
[2017-03-21] MEDS: SENNOSIDES 8.6 MG TABLET GT SCH (21:29)
[2017-03-22] MEDS: PROCHLORPERAZINE MALEATE 10 MG TABLET GT SCH ×5 (00:09→23:56)
[2017-03-22] MEDS: PANCREATIC ENZYMES GT SCH ×5 (00:09→23:56)
[2017-03-22] MEDS: BACLOFEN (10 MG) 10 MG TABLET GT SCH ×2 (06:10→17:43)
[2017-03-22] MEDS: PREVACID (NF) 30 MG TAB GT SCH (06:10)
[2017-03-22] MEDS: ALBUTEROL FS 2.5 MG/0.5 ML VIAL.NEB NEB SCH ×2 (07:22→20:06)
[2017-03-22] MEDS: IPRATROPIUM NEB FS 0.5 MG/2.5 ML AMPUL.NEB IH SCH ×2 (07:22→20:06)
[2017-03-22 08:08] VITALS: BP 100/56
[2017-03-22] MEDS: MIDODRINE HCL (5MG) 5 MG TABLET GT SCH ×2 (09:32→20:26)
[2017-03-22] MEDS: POTASSIUM CHLORIDE 20 MEQ/15 ML ML GT SCH (09:32)
[2017-03-22] MEDS: POLYVINYL ALCOHOL 15 ML BOTTLE EACHEYE SCH ×2 (09:32→20:25)
[2017-03-22] MEDS: Z GUARD REMEDY 4 OZ OINT TP SCH ×3 (09:33)
[2017-03-22] MEDS: PROSTAT (PYXIS) 30 ML UDC GT SCH (09:33)
--- NOTE | 2017-03-22 10:21 | NUR ---
Dr. Lewis came to do the dental cleaning for the resident. Informed Sister Judith who appreciated the information.
--- NOTE | 2017-03-22 13:23 | NUR ---
Pt's sister visited and said that Dr. Castro has not called her until now. Called Dr. Castro and gave him Judith's phone number.
--- NOTE | 2017-03-22 15:25 | NUR ---
Dr. Castro said he already spoke with pt's sister Judith. He ordered to DC pancreatic enzyme and prochlorperazine maleate.
[2017-03-22] MEDS: MULTIVIT, IRON, MIN NO. 8, FA 1 TAB GT SCH (20:26)
[2017-03-22 21:00] VITALS: BP 99/65
[2017-03-22] MEDS: FAMOTIDINE (20 MG) 20 MG TABLET GT SCH (21:24)
[2017-03-22] MEDS: SENNOSIDES 8.6 MG TABLET GT SCH (21:25)
[2017-03-23] MEDS: PANCREATIC ENZYMES GT SCH ×4 (05:10→23:28)
[2017-03-23] MEDS: PREVACID (NF) 30 MG TAB GT SCH (05:10)
[2017-03-23] MEDS: PROCHLORPERAZINE MALEATE 10 MG TABLET GT SCH ×4 (05:10→23:28)
[2017-03-23] MEDS: BACLOFEN (10 MG) 10 MG TABLET GT SCH ×2 (05:10→17:03)
[2017-03-23] MEDS: RENAL NOVASOURCE 1,000 ML BOTTLE GT PRN (06:59)
--- NOTE | 2017-03-23 07:00 | NUR ---
RN OPENING NOTES HOB ELEVATED. VENT TRACH NON LABORED RESP. TUBE FEED RUNNING. SIDE RAILS X 2. BED LOW LOCKED. CALL LIGHT IN REACH. WILL CONT TO MONITOR. Addendum: 03/23/17 at 1004 by ROLA TUCKER RN CORRECTION: HIGH TRACH COLLAR.
[2017-03-23] MEDS: ALBUTEROL FS 2.5 MG/0.5 ML VIAL.NEB NEB SCH ×2 (07:47→19:02)
[2017-03-23] MEDS: IPRATROPIUM NEB FS 0.5 MG/2.5 ML AMPUL.NEB IH SCH ×2 (07:47→19:02)
[2017-03-23 08:02] VITALS: BP 97/51
[2017-03-23] MEDS: POLYVINYL ALCOHOL 15 ML BOTTLE EACHEYE SCH ×2 (08:05→20:24)
[2017-03-23] MEDS: POTASSIUM CHLORIDE 20 MEQ/15 ML ML GT SCH (08:05)
[2017-03-23] MEDS: MIDODRINE HCL (5MG) 5 MG TABLET GT SCH ×2 (08:06→20:24)
[2017-03-23] MEDS: PROSTAT (PYXIS) 30 ML UDC GT SCH (08:06)
--- NOTE | 2017-03-23 17:35 | NUR ---
RN CLOSING NOTES HOB ELEVATED. HIGH FLOW TRACH NON LABORED RESP. TUBE FEED RUNNING. SIDE RAILS X 2. BED LOW LOCKED. CALL LIGHT IN REACH. WILL CONT TO MONITOR AND ENDORSE TO NOC RN.
[2017-03-23 20:08] VITALS: BP 99/56
[2017-03-23] MEDS: MULTIVIT, IRON, MIN NO. 8, FA 1 TAB GT SCH (20:24)
[2017-03-23] MEDS: FAMOTIDINE (20 MG) 20 MG TABLET GT SCH (21:15)
[2017-03-23] MEDS: SENNOSIDES 8.6 MG TABLET GT SCH (21:15)
[2017-03-24] MEDS: PREVACID (NF) 30 MG TAB GT SCH (05:28)
[2017-03-24] MEDS: BACLOFEN (10 MG) 10 MG TABLET GT SCH ×2 (05:28→17:26)
[2017-03-24] MEDS: PROCHLORPERAZINE MALEATE 10 MG TABLET GT SCH ×3 (05:28→17:27)
[2017-03-24] MEDS: RENAL NOVASOURCE 1,000 ML BOTTLE GT PRN (05:28)
[2017-03-24] MEDS: PANCREATIC ENZYMES GT SCH ×3 (05:28→17:27)
[2017-03-24 07:39] VITALS: BP 97/62
[2017-03-24] MEDS: IPRATROPIUM NEB FS 0.5 MG/2.5 ML AMPUL.NEB IH SCH ×2 (07:44→19:28)
[2017-03-24] MEDS: ALBUTEROL FS 2.5 MG/0.5 ML VIAL.NEB NEB SCH ×2 (07:44→19:28)
[2017-03-24] MEDS: MIDODRINE HCL (5MG) 5 MG TABLET GT SCH ×2 (09:23→21:34)
[2017-03-24] MEDS: POLYVINYL ALCOHOL 15 ML BOTTLE EACHEYE SCH ×2 (09:23→21:34)
[2017-03-24] MEDS: POTASSIUM CHLORIDE 20 MEQ/15 ML ML GT SCH (09:23)
[2017-03-24] MEDS: PROSTAT (PYXIS) 30 ML UDC GT SCH (09:23)
--- NOTE | 2017-03-24 11:00 | NUR ---
Place a call at wound center to speak with Dr. Bond to follow-up regarding plan for incisional aspiration of R plantar foot abscess, according to staff he will text
[2017-03-24] MEDS: LACTULOSE 10 G/15 ML UDC (PYXIS) GT PRN (17:28)
[2017-03-24] MEDS: BISACODYL SUPP (10 MG) 10 MG/SUPP.RECT SUPP.RECT RC PRN (18:29)
[2017-03-24 20:07] VITALS: BP 98/71
[2017-03-24] MEDS: MULTIVIT, IRON, MIN NO. 8, FA 1 TAB GT SCH (21:34)
[2017-03-24] MEDS: SENNOSIDES 8.6 MG TABLET GT SCH (21:34)
[2017-03-24] MEDS: FAMOTIDINE (20 MG) 20 MG TABLET GT SCH (21:34)
--- NOTE | 2017-03-24 22:40 | NUR ---
SEEN BY DR. GALICIA ASPIRATION OF RIGHT FOOT ABSCESS DONE,ORDERED TO CULTURE IT CARRIED OUT.BLEEDING NOTED ON THE SITE PRESSURE DRESSING APPLIED.WILL CONTINUE TO MONITOR
[2017-03-25] MEDS: PREVACID (NF) 30 MG TAB GT SCH (05:15)
[2017-03-25] MEDS: BACLOFEN (10 MG) 10 MG TABLET GT SCH ×2 (05:15→17:49)
--- NOTE | 2017-03-25 07:00 | NUR ---
NOTED PT WITH LARGE AMOUNT OF SECRETIONS YELLOWISH IN COLOR.CONTINUE TO MONITOR.
[2017-03-25] MEDS: IPRATROPIUM NEB FS 0.5 MG/2.5 ML AMPUL.NEB IH SCH ×2 (07:29→19:16)
[2017-03-25] MEDS: ALBUTEROL FS 2.5 MG/0.5 ML VIAL.NEB NEB SCH ×2 (07:29→19:16)
[2017-03-25 07:43] VITALS: BP 96/58
[2017-03-25] MEDS: POTASSIUM CHLORIDE 20 MEQ/15 ML ML GT SCH (09:17)
[2017-03-25] MEDS: LACTULOSE 10 G/15 ML UDC (PYXIS) GT PRN (09:17)
[2017-03-25] MEDS: PROSTAT (PYXIS) 30 ML UDC GT SCH (09:17)
[2017-03-25] MEDS: MIDODRINE HCL (5MG) 5 MG TABLET GT SCH ×2 (09:17→20:18)
[2017-03-25] MEDS: BISACODYL SUPP (10 MG) 10 MG/SUPP.RECT SUPP.RECT RC PRN (09:17)
[2017-03-25] MEDS: POLYVINYL ALCOHOL 15 ML BOTTLE EACHEYE SCH ×2 (09:17→20:17)
--- NOTE | 2017-03-25 15:28 | NUR ---
Notified TEAM DRIVER Coby Pabon that a small amount of GT formula came out of pt's nose. No gastric residual noted and just had a bowel movement after 3 days. No new order.
[2017-03-25] MEDS: MULTIVIT, IRON, MIN NO. 8, FA 1 TAB GT SCH (20:18)
[2017-03-25] MEDS: FAMOTIDINE (20 MG) 20 MG TABLET GT SCH (21:28)
[2017-03-25] MEDS: SENNOSIDES 8.6 MG TABLET GT SCH (21:28)
[2017-03-26] MEDS: RENAL NOVASOURCE 1,000 ML BOTTLE GT PRN (01:28)
[2017-03-26] MEDS: BACLOFEN (10 MG) 10 MG TABLET GT SCH ×2 (05:06→17:54)
[2017-03-26] MEDS: PREVACID (NF) 30 MG TAB GT SCH (05:06)
[2017-03-26] MEDS: ALBUTEROL FS 2.5 MG/0.5 ML VIAL.NEB NEB SCH ×2 (07:08→19:33)
[2017-03-26] MEDS: IPRATROPIUM NEB FS 0.5 MG/2.5 ML AMPUL.NEB IH SCH ×2 (07:08→19:33)
--- NOTE | 2017-03-26 08:19 | NUR ---
WOUND CARE CONSULT: PT SEEN FOR RASH AND SKIN IRRITATION TO PERIANAL AND PERINEAL AREAS. PT IS INCONTINENT. PT NOTED TO HAVE SEMI-LIQUID STOOL. RECOMMENDATIONS MADE FOR SKIN PROTECTION AND TREATMENT FOR LOTRIMIN FOLLOWED BY Z GUARD EVERY SHIFT. Z GUARD TO BE REAPPLIED NEEDED FOR SOILING. SKIN TO BE KEPT CLEAN AND DRY. DISCUSSED WITH NURSING STAFF. WILL SEE PRN. ALL SKIN PROTECTION MEASURES IN PLACE. MD IN AGREEMENT WITH PLAN OF CARE.
[2017-03-26] MEDS: POTASSIUM CHLORIDE 20 MEQ/15 ML ML GT SCH (09:15)
[2017-03-26] MEDS: PROSTAT (PYXIS) 30 ML UDC GT SCH (09:15)
[2017-03-26] MEDS: POLYVINYL ALCOHOL 15 ML BOTTLE EACHEYE SCH ×2 (09:15→21:38)
[2017-03-26] MEDS: MIDODRINE HCL (5MG) 5 MG TABLET GT SCH ×2 (09:15→21:38)
[2017-03-26] MEDS ORDERED: Z GUARD REMEDY 4 OZ OINT TP PRN (11:30)
[2017-03-26 12:45] VITALS: BP 86/43
[2017-03-26] MEDS: CLOTRIMAZOLE 1% 15 GM TUBE TP SCH (21:00)
[2017-03-26] MEDS ORDERED: Z GUARD REMEDY 4 OZ OINT TP SCH (21:00)
[2017-03-26] MEDS: MULTIVIT, IRON, MIN NO. 8, FA 1 TAB GT SCH (21:38)
[2017-03-26] MEDS: Z GUARD REMEDY 4 OZ OINT TP SCH (21:39)
[2017-03-26] MEDS: SENNOSIDES 8.6 MG TABLET GT SCH (21:59)
[2017-03-26] MEDS: FAMOTIDINE (20 MG) 20 MG TABLET GT SCH (21:59)
[2017-03-27] MEDS: BACLOFEN (10 MG) 10 MG TABLET GT SCH ×2 (06:15→17:05)
[2017-03-27] MEDS: PREVACID (NF) 30 MG TAB GT SCH (06:15)
--- NOTE | 2017-03-27 06:37 | NUR ---
Noted pt with left inner thigh redness,warm to touch,no open skin noted.Kept away from pressure.will continue to monitor and will endorsed.
[2017-03-27] MEDS: ALBUTEROL FS 2.5 MG/0.5 ML VIAL.NEB NEB SCH ×2 (07:07→19:29)
[2017-03-27] MEDS: IPRATROPIUM NEB FS 0.5 MG/2.5 ML AMPUL.NEB IH SCH ×2 (07:07→19:29)
[2017-03-27] MEDS: POLYVINYL ALCOHOL 15 ML BOTTLE EACHEYE SCH ×2 (08:43→21:15)
[2017-03-27] MEDS: POTASSIUM CHLORIDE 20 MEQ/15 ML ML GT SCH (08:43)
[2017-03-27] MEDS: PROSTAT (PYXIS) 30 ML UDC GT SCH (08:44)
[2017-03-27] MEDS: MIDODRINE HCL (5MG) 5 MG TABLET GT SCH ×2 (08:44→21:15)
[2017-03-27] MEDS: CLOTRIMAZOLE 1% 15 GM TUBE TP SCH ×2 (09:00→21:16)
[2017-03-27] MEDS: Z GUARD REMEDY 4 OZ OINT TP SCH ×2 (09:00→21:16)
[2017-03-27 19:51] VITALS: BP 98/52
[2017-03-27] MEDS: MULTIVIT, IRON, MIN NO. 8, FA 1 TAB GT SCH (21:15)
[2017-03-27] MEDS: FAMOTIDINE (20 MG) 20 MG TABLET GT SCH (21:16)
[2017-03-27] MEDS: SENNOSIDES 8.6 MG TABLET GT SCH (21:16)
[2017-03-28] MEDS: PREVACID (NF) 30 MG TAB GT SCH (05:53)
[2017-03-28] MEDS: BACLOFEN (10 MG) 10 MG TABLET GT SCH ×2 (05:53→18:09)
[2017-03-28] MEDS: RENAL NOVASOURCE 1,000 ML BOTTLE GT PRN (05:53)
[2017-03-28 07:37] VITALS: BP 96/50
[2017-03-28] MEDS: ALBUTEROL FS 2.5 MG/0.5 ML VIAL.NEB NEB SCH ×2 (08:11→19:42)
[2017-03-28] MEDS: IPRATROPIUM NEB FS 0.5 MG/2.5 ML AMPUL.NEB IH SCH ×2 (08:11→19:42)
[2017-03-28] MEDS: POLYVINYL ALCOHOL 15 ML BOTTLE EACHEYE SCH ×2 (09:16→20:06)
[2017-03-28] MEDS: POTASSIUM CHLORIDE 20 MEQ/15 ML ML GT SCH (09:16)
[2017-03-28] MEDS: PROSTAT (PYXIS) 30 ML UDC GT SCH (09:17)
[2017-03-28] MEDS: Z GUARD REMEDY 4 OZ OINT TP SCH ×2 (09:17→20:11)
[2017-03-28] MEDS: CLOTRIMAZOLE 1% 15 GM TUBE TP SCH ×2 (09:17→20:10)
[2017-03-28] MEDS: MIDODRINE HCL (5MG) 5 MG TABLET GT SCH ×2 (09:17→20:10)
--- NOTE | 2017-03-28 12:30 | NUR ---
Noted with redness on the left upper inner thigh.warm to touch,no open skin noticed.vital signs are stable. made aware.waiting to call back.continue to monitor.
--- NOTE | 2017-03-28 13:00 | NUR ---
Got new order from for vancomycin pharmacy to dose for 7 days,CBC,BMP on 03/29/17.BP is 96/64.got order for IV bolus NS 500ml.noted and carried out.family made aware.spoke to sister garry.
--- NOTE | 2017-03-28 13:30 | NUR ---
Inserted IV line on left wrist with no infiltration and good blood return noticed.started IV hydration from E KIT,got authorization from pharmacist tyra.placed an order to replace E kit.
--- NOTE | 2017-03-28 14:30 | NUR ---
Got order for vancomycin from [facility] pharmacy.noted and carried out.got an order to start first dose from Ekit.
[2017-03-28] MEDS: VANCOMYCIN 1 GM in IV D5W 250ml IV SCH (16:17)
[2017-03-28] MEDS ORDERED: IV NS 0.9% 250 ML IV ONE (17:30)
[2017-03-28] MEDS ORDERED: IV NS 0.9% 500 ML IV ONE (17:30)
[2017-03-28 19:47] VITALS: BP 98/62
[2017-03-28] MEDS: MULTIVIT, IRON, MIN NO. 8, FA 1 TAB GT SCH (20:10)
[2017-03-28] MEDS: SENNOSIDES 8.6 MG TABLET GT SCH (21:48)
[2017-03-28] MEDS: FAMOTIDINE (20 MG) 20 MG TABLET GT SCH (21:48)
[2017-03-29] MEDS: VANCOMYCIN 1 GM in IV D5W 250ml IV SCH ×2 (05:00→17:00)
[2017-03-29] MEDS: PREVACID (NF) 30 MG TAB GT SCH (05:01)
[2017-03-29] MEDS: BACLOFEN (10 MG) 10 MG TABLET GT SCH ×2 (05:01→17:13)
[2017-03-29] MEDS: IPRATROPIUM NEB FS 0.5 MG/2.5 ML AMPUL.NEB IH SCH ×2 (07:14→20:10)
[2017-03-29] MEDS: ALBUTEROL FS 2.5 MG/0.5 ML VIAL.NEB NEB SCH ×2 (07:14→20:10)
[2017-03-29 08:09] VITALS: BP 96/62
[2017-03-29] MEDS: POTASSIUM CHLORIDE 20 MEQ/15 ML ML GT SCH (09:28)
[2017-03-29] MEDS: POLYVINYL ALCOHOL 15 ML BOTTLE EACHEYE SCH ×2 (09:28→20:15)
[2017-03-29] MEDS: MIDODRINE HCL (5MG) 5 MG TABLET GT SCH ×2 (09:29→20:15)
[2017-03-29] MEDS: PROSTAT (PYXIS) 30 ML UDC GT SCH (09:29)
[2017-03-29] MEDS: Z GUARD REMEDY 4 OZ OINT TP SCH ×2 (09:30→20:16)
[2017-03-29] MEDS: CLOTRIMAZOLE 1% 15 GM TUBE TP SCH ×2 (09:30→20:16)
[2017-03-29 16:31] LABS: CALCIUM, SERUM 10.1 mg/dL (8.5-10.1); CREATININE 0.6 mg/dL (0.6-1.3); POTASSIUM 4.4 mmol/L (3.5-5.1)
--- NOTE | 2017-03-29 17:47 | NUR ---
Relayed BMP result and Vancomycin trough 27 to [facility] IV pharmacist Nani. Received order to hold Vancomycin dose tonight and doses tomorrow, do random Vancomycin level on 03/31/17 at 0500.
[2017-03-29 18:59] LABS: BASOPHILS % (AUTO) 0.1 % (0.0-2.0); EOSINOPHILS # (AUTO) 0.1 /CMM (0.0-0.7); EOSINOPHILS % (AUTO) 2.5 % (0.0-6.0); HEMATOCRIT 27 % (33-45); HEMOGLOBIN 8.6 g/dL (11.5-14.8); LYMPHOCYTES # (AUTO) 1.6 /CMM (0.8-4.8); LYMPHOCYTES % (AUTO) 28.2 % (20.0-44.0); MEAN CORPUSCULAR HEMOGLOBIN 26 PG (26.0-33.0); MEAN CORPUSCULAR HGB CONC 32 g/dl (31.0-36.0); MEAN CORPUSCULAR VOLUME 82 fL (82-100); MONOCYTES # (AUTO) 0.7 /CMM (0.1-1.30); MONOCYTES % (AUTO) 11.4 % (2.0-12.0); NEUTROPHILS # (AUTO) 3.3 /CMM (1.8-8.9); NEUTROPHILS % (AUTO) 57.8 % (43.0-81.0); RDW COEFFICIENT OF VARIATION 20.7 (11.5-15.0); WHITE BLOOD COUNT (AUTO) 5.7 K/uL (4.3-11.0)
[2017-03-29 19:09] LABS: PLATELET COUNT (AUTO) 122 /CMM (150-450)
[2017-03-29 19:17] LABS: BAND % (MANUAL) 2 % (0.0-5.0); EOSINOPHILS % (MANUAL) 2 % (0-4); LYMPHOCYTES % (MANUAL) 30 % (16-48); MONOCYTES % (MANUAL) 22 % (0-11.0); NEUTROPHILS % (MANUAL) 44 (42-76)
[2017-03-29 20:00] VITALS: BP 97/70
[2017-03-29] MEDS: MULTIVIT, IRON, MIN NO. 8, FA 1 TAB GT SCH (20:16)
[2017-03-29] MEDS: SENNOSIDES 8.6 MG TABLET GT SCH (21:44)
[2017-03-29] MEDS: FAMOTIDINE (20 MG) 20 MG TABLET GT SCH (21:44)
[2017-03-30] MEDS: RENAL NOVASOURCE 1,000 ML BOTTLE GT PRN (01:27)
[2017-03-30] MEDS: VANCOMYCIN 1 GM in IV D5W 250ml IV SCH (05:00)
[2017-03-30] MEDS: PREVACID (NF) 30 MG TAB GT SCH (05:15)
[2017-03-30] MEDS: BACLOFEN (10 MG) 10 MG TABLET GT SCH ×2 (05:16→18:10)
--- NOTE | 2017-03-30 06:21 | NUR ---
RN NOTES Vancomycin dose as ordered.
[2017-03-30] MEDS: ALBUTEROL FS 2.5 MG/0.5 ML VIAL.NEB NEB SCH ×2 (07:28→19:22)
[2017-03-30] MEDS: IPRATROPIUM NEB FS 0.5 MG/2.5 ML AMPUL.NEB IH SCH ×2 (07:28→19:22)
[2017-03-30 07:42] VITALS: BP 98/54
[2017-03-30] MEDS: POLYVINYL ALCOHOL 15 ML BOTTLE EACHEYE SCH ×2 (09:53→20:16)
[2017-03-30] MEDS: POTASSIUM CHLORIDE 20 MEQ/15 ML ML GT SCH (09:53)
[2017-03-30] MEDS: CLOTRIMAZOLE 1% 15 GM TUBE TP SCH ×2 (09:54→20:17)
[2017-03-30] MEDS: PROSTAT (PYXIS) 30 ML UDC GT SCH (09:54)
[2017-03-30] MEDS: Z GUARD REMEDY 4 OZ OINT TP SCH ×2 (09:54→20:17)
[2017-03-30] MEDS: MIDODRINE HCL (5MG) 5 MG TABLET GT SCH ×2 (09:54→20:17)
[2017-03-30 20:05] VITALS: BP 97/50
[2017-03-30] MEDS: MULTIVIT, IRON, MIN NO. 8, FA 1 TAB GT SCH (20:17)
[2017-03-30] MEDS: FAMOTIDINE (20 MG) 20 MG TABLET GT SCH (21:44)
[2017-03-30] MEDS: SENNOSIDES 8.6 MG TABLET GT SCH (21:44)
[2017-03-31] MEDS: VANCOMYCIN 1 GM in IV D5W 250ml IV SCH (05:00)
[2017-03-31] MEDS: PREVACID (NF) 30 MG TAB GT SCH (05:05)
[2017-03-31] MEDS: BACLOFEN (10 MG) 10 MG TABLET GT SCH ×2 (05:05→17:17)
[2017-03-31] MEDS: ALBUTEROL FS 2.5 MG/0.5 ML VIAL.NEB NEB SCH ×2 (07:13→20:30)
[2017-03-31] MEDS: IPRATROPIUM NEB FS 0.5 MG/2.5 ML AMPUL.NEB IH SCH ×2 (07:13→20:30)
[2017-03-31 07:57] VITALS: BP 91/70
[2017-03-31] MEDS: POTASSIUM CHLORIDE 20 MEQ/15 ML ML GT SCH (08:56)
[2017-03-31] MEDS: POLYVINYL ALCOHOL 15 ML BOTTLE EACHEYE SCH ×2 (08:56→21:48)
[2017-03-31] MEDS: PROSTAT (PYXIS) 30 ML UDC GT SCH (08:57)
[2017-03-31] MEDS: Z GUARD REMEDY 4 OZ OINT TP SCH ×2 (08:57→21:48)
[2017-03-31] MEDS: CLOTRIMAZOLE 1% 15 GM TUBE TP SCH ×2 (08:57→21:48)
[2017-03-31] MEDS: MIDODRINE HCL (5MG) 5 MG TABLET GT SCH ×2 (08:57→21:48)
--- NOTE | 2017-03-31 13:30 | NUR ---
Vancomycin random level 12 faxed to [facility] pharmacy, with new order to to change dose to Vancomycin 1.2 gm Q 24h to complete 7 days therapy. Order noted and carried out.
--- NOTE | 2017-03-31 14:21 | NUR ---
Received a call from [facility] ([facility]) who notified director of social services that the resident's 100 days were up in May. She asked director of social services if resident is being billed under jail care or skilled care and informed her that resident is being billed under skilled care. Confirmed that resident has a trach. SW informed Marina, counter supervisor, and she stated that [facility] bills for the first 100 days and then [facility] is billed after that under skilled care.
[2017-03-31] MEDS: D5W IV SCH (19:00)
[2017-03-31] MEDS: VANCOMYCIN IV SCH (19:00)
--- NOTE | 2017-03-31 20:00 | NUR ---
Vancomycin 1.2 gm given as ordered.Vanco trough on 04/02/17 with BUN and CReatine.Left inner thigh still with redness,warm to touch ,no open skin.Will continue to monitor.
[2017-03-31 20:01] VITALS: BP 98/58
[2017-03-31] MEDS: MULTIVIT, IRON, MIN NO. 8, FA 1 TAB GT SCH (21:48)
[2017-03-31] MEDS: FAMOTIDINE (20 MG) 20 MG TABLET GT SCH (21:48)
[2017-03-31] MEDS: SENNOSIDES 8.6 MG TABLET GT SCH (21:48)
[2017-03-31] MEDS: RENAL NOVASOURCE 1,000 ML BOTTLE GT PRN (23:44)
[2017-04-01] MEDS: BACLOFEN (10 MG) 10 MG TABLET GT SCH ×2 (05:15→17:26)
[2017-04-01] MEDS: PREVACID (NF) 30 MG TAB GT SCH (05:15)
[2017-04-01] MEDS: LACTULOSE 10 G/15 ML UDC (PYXIS) GT PRN (06:54)
[2017-04-01 07:38] VITALS: BP 80/46
[2017-04-01] MEDS: IPRATROPIUM NEB FS 0.5 MG/2.5 ML AMPUL.NEB IH SCH ×2 (07:55→19:35)
[2017-04-01] MEDS: ALBUTEROL FS 2.5 MG/0.5 ML VIAL.NEB NEB SCH ×2 (07:55→19:35)
[2017-04-01] MEDS: POTASSIUM CHLORIDE 20 MEQ/15 ML ML GT SCH (08:59)
[2017-04-01] MEDS: MIDODRINE HCL (5MG) 5 MG TABLET GT SCH ×2 (08:59→21:21)
[2017-04-01] MEDS: PROSTAT (PYXIS) 30 ML UDC GT SCH (08:59)
[2017-04-01] MEDS: CLOTRIMAZOLE 1% 15 GM TUBE TP SCH ×2 (08:59→21:21)
[2017-04-01] MEDS: Z GUARD REMEDY 4 OZ OINT TP SCH ×2 (08:59→21:21)
[2017-04-01] MEDS: POLYVINYL ALCOHOL 15 ML BOTTLE EACHEYE SCH ×2 (08:59→21:36)
[2017-04-01] MEDS: VANCOMYCIN IV SCH (19:37)
[2017-04-01] MEDS: D5W IV SCH (19:37)
[2017-04-01 20:00] VITALS: BP 98/69
[2017-04-01] MEDS: SENNOSIDES 8.6 MG TABLET GT SCH (21:21)
[2017-04-01] MEDS: MULTIVIT, IRON, MIN NO. 8, FA 1 TAB GT SCH (21:21)
[2017-04-01] MEDS: FAMOTIDINE (20 MG) 20 MG TABLET GT SCH (21:21)
[2017-04-02] MEDS: RENAL NOVASOURCE 1,000 ML BOTTLE GT PRN (00:16)
[2017-04-02] MEDS: BACLOFEN (10 MG) 10 MG TABLET GT SCH ×2 (05:36→17:14)
[2017-04-02] MEDS: PREVACID (NF) 30 MG TAB GT SCH (05:36)
[2017-04-02] MEDS: IPRATROPIUM NEB FS 0.5 MG/2.5 ML AMPUL.NEB IH SCH ×2 (07:38→19:48)
[2017-04-02] MEDS: ALBUTEROL FS 2.5 MG/0.5 ML VIAL.NEB NEB SCH ×2 (07:38→19:48)
[2017-04-02 08:09] VITALS: BP 88/44
[2017-04-02] MEDS: PROSTAT (PYXIS) 30 ML UDC GT SCH (09:17)
[2017-04-02] MEDS: MIDODRINE HCL (5MG) 5 MG TABLET GT SCH ×2 (09:17→21:21)
[2017-04-02] MEDS: Z GUARD REMEDY 4 OZ OINT TP SCH ×2 (09:17→21:21)
[2017-04-02] MEDS: POLYVINYL ALCOHOL 15 ML BOTTLE EACHEYE SCH ×2 (09:17→21:21)
[2017-04-02] MEDS: CLOTRIMAZOLE 1% 15 GM TUBE TP SCH ×2 (09:18→21:21)
--- NOTE | 2017-04-02 10:50 | NUR ---
Obtain an order from Dr. Macario to D/C Potassium Chloride via GT, resident no longer on Lasix.
--- NOTE | 2017-04-02 14:00 | NUR ---
Received a telephone order c/o [facility] pharmacy not to do Vanco trough level anymore because last dose of ATB is tomorrow. Order noted and carried out.
--- NOTE | 2017-04-02 18:45 | NUR ---
Spoke with Judith and resident's mother via conference call. Update them of patient's condition and current order. Inform Judith that result of wound culture in the R foot negative, the lump still visible but resident no facial grimacing noted while sister Bree massaging the affected foot. Judith appreciated the call. Resident's mother requesting room change. Will inform nurse manger of the request and will move patient when bed available.
[2017-04-02] MEDS: D5W IV SCH (19:56)
[2017-04-02] MEDS: VANCOMYCIN IV SCH (19:56)
[2017-04-02 19:57] VITALS: BP 91/46
[2017-04-02] MEDS: FAMOTIDINE (20 MG) 20 MG TABLET GT SCH (21:21)
[2017-04-02] MEDS: SENNOSIDES 8.6 MG TABLET GT SCH (21:21)
[2017-04-02] MEDS: MULTIVIT, IRON, MIN NO. 8, FA 1 TAB GT SCH (21:21)
[2017-04-03] MEDS: BACLOFEN (10 MG) 10 MG TABLET GT SCH ×2 (05:09→17:39)
[2017-04-03] MEDS: PREVACID (NF) 30 MG TAB GT SCH (05:09)
[2017-04-03] MEDS: LACTULOSE 10 G/15 ML UDC (PYXIS) GT PRN (06:40)
[2017-04-03] MEDS: RENAL NOVASOURCE 1,000 ML BOTTLE GT PRN (06:40)
[2017-04-03] MEDS: ALBUTEROL FS 2.5 MG/0.5 ML VIAL.NEB NEB SCH ×2 (07:25→19:47)
[2017-04-03] MEDS: IPRATROPIUM NEB FS 0.5 MG/2.5 ML AMPUL.NEB IH SCH ×2 (07:25→19:47)
[2017-04-03 07:28] VITALS: BP 92/59
[2017-04-03] MEDS: PROSTAT (PYXIS) 30 ML UDC GT SCH (08:15)
[2017-04-03] MEDS: Z GUARD REMEDY 4 OZ OINT TP SCH ×2 (08:15→21:30)
[2017-04-03] MEDS: CLOTRIMAZOLE 1% 15 GM TUBE TP SCH ×2 (08:15→21:30)
[2017-04-03] MEDS: MIDODRINE HCL (5MG) 5 MG TABLET GT SCH ×2 (08:15→21:30)
[2017-04-03] MEDS: POLYVINYL ALCOHOL 15 ML BOTTLE EACHEYE SCH ×2 (08:15→21:30)
[2017-04-03] MEDS ORDERED: ACETAMINOPHEN 325 MG TABLET PO PRN (14:30)
[2017-04-03] MEDS: VANCOMYCIN IV SCH (19:00)
[2017-04-03] MEDS: D5W IV SCH (19:00)
[2017-04-03 19:46] VITALS: BP 96/62
[2017-04-03] MEDS: FAMOTIDINE (20 MG) 20 MG TABLET GT SCH (21:30)
[2017-04-03] MEDS: MULTIVIT, IRON, MIN NO. 8, FA 1 TAB GT SCH (21:30)
[2017-04-03] MEDS: SENNOSIDES 8.6 MG TABLET GT SCH (21:30)
[2017-04-04] MEDS: RENAL NOVASOURCE 1,000 ML BOTTLE GT PRN (05:32)
[2017-04-04] MEDS: BACLOFEN (10 MG) 10 MG TABLET GT SCH ×2 (06:03→18:18)
[2017-04-04] MEDS: PREVACID (NF) 30 MG TAB GT SCH (06:03)
[2017-04-04 07:24] VITALS: BP 95/60
[2017-04-04] MEDS: IPRATROPIUM NEB FS 0.5 MG/2.5 ML AMPUL.NEB IH SCH ×2 (07:36→19:36)
[2017-04-04] MEDS: ALBUTEROL FS 2.5 MG/0.5 ML VIAL.NEB NEB SCH ×2 (07:36→19:36)
[2017-04-04] MEDS: POLYVINYL ALCOHOL 15 ML BOTTLE EACHEYE SCH ×2 (09:49→20:14)
[2017-04-04] MEDS: PROSTAT (PYXIS) 30 ML UDC GT SCH (09:49)
[2017-04-04] MEDS: CLOTRIMAZOLE 1% 15 GM TUBE TP SCH ×2 (09:49→20:15)
[2017-04-04] MEDS: MIDODRINE HCL (5MG) 5 MG TABLET GT SCH ×2 (09:49→20:15)
[2017-04-04] MEDS: Z GUARD REMEDY 4 OZ OINT TP SCH ×2 (09:50→20:15)
[2017-04-04] MEDS: VANCOMYCIN IV SCH (19:00)
[2017-04-04] MEDS: D5W IV SCH (19:00)
--- NOTE | 2017-04-04 19:30 | NUR ---
RN NOTES Noted pt with left eye redness, no discharge. Sister at bedside and aware. Pt has order for artificial tears Q12hrs. Will continue to monitor for any changes.
[2017-04-04 20:01] VITALS: BP 98/72
[2017-04-04] MEDS: MULTIVIT, IRON, MIN NO. 8, FA 1 TAB GT SCH (20:15)
[2017-04-04] MEDS: FAMOTIDINE (20 MG) 20 MG TABLET GT SCH (21:49)
[2017-04-04] MEDS: SENNOSIDES 8.6 MG TABLET GT SCH (21:49)
[2017-04-05] MEDS: PREVACID (NF) 30 MG TAB GT SCH (05:14)
[2017-04-05] MEDS: BACLOFEN (10 MG) 10 MG TABLET GT SCH ×2 (05:14→18:56)
[2017-04-05] MEDS: IPRATROPIUM NEB FS 0.5 MG/2.5 ML AMPUL.NEB IH SCH ×2 (07:09→19:30)
[2017-04-05] MEDS: ALBUTEROL FS 2.5 MG/0.5 ML VIAL.NEB NEB SCH ×2 (07:09→19:30)
[2017-04-05 09:05] VITALS: BP 104/62
[2017-04-05] MEDS: POLYVINYL ALCOHOL 15 ML BOTTLE EACHEYE SCH ×2 (09:11→20:22)
[2017-04-05] MEDS: CLOTRIMAZOLE 1% 15 GM TUBE TP SCH ×2 (09:12→20:23)
[2017-04-05] MEDS: MIDODRINE HCL (5MG) 5 MG TABLET GT SCH ×2 (09:12→20:23)
[2017-04-05] MEDS: Z GUARD REMEDY 4 OZ OINT TP SCH ×2 (09:12→20:23)
[2017-04-05] MEDS: PROSTAT (PYXIS) 30 ML UDC GT SCH (09:12)
--- NOTE | 2017-04-05 11:30 | NUR ---
Seen and examined by Dr. Nichole Dugan, reported L eye redness, new order given for eye drops and to send L eye for culture.
--- NOTE | 2017-04-05 13:40 | NUR ---
SUBACUTE CHARGE: PER OK TO USE ALTERNATIVE MEDICATION INSTEAD OF ZYMAXID OPHTHALMIC DROPS WE WILL BE USING CIPROFLOXACIN HCL. WE ARE TO INSTILL ONE DROP INTO LEFT EYE FOUR TIMES A DAY FOR SEVEN DAYS.
[2017-04-05] MEDS: CIPROFLOXACIN HCL 0.3% 5 ML BOTTLE LEFTEYE SCH ×2 (17:00→20:23)
[2017-04-05] MEDS ORDERED: [UNRECOGNIZED DRUG - OTHER] LEFTEYE SCH (17:00)
--- NOTE | 2017-04-05 18:00 | NUR ---
POST ANESTHESIA ROOM NURSE reported, noted redness to right upper inner thigh, assessed noted small bump, slightly hard to touch, no drainage at this time, not warm to touch, patient has no fever all day. Patient just completed iv ATB therapy to left thigh cellulitis. Seen by THERMITE BOMB LOADER Coby this morning, aware has increased in secretions. Per THERMITE BOMB LOADER notify her if will have fever. Patient closely monitored. No distress.
[2017-04-05 20:00] VITALS: BP 98/68
[2017-04-05] MEDS: MULTIVIT, IRON, MIN NO. 8, FA 1 TAB GT SCH (20:23)
[2017-04-05] MEDS: FAMOTIDINE (20 MG) 20 MG TABLET GT SCH (21:42)
[2017-04-05] MEDS: SENNOSIDES 8.6 MG TABLET GT SCH (21:42)
[2017-04-06] MEDS: PREVACID (NF) 30 MG TAB GT SCH (05:05)
[2017-04-06] MEDS: BACLOFEN (10 MG) 10 MG TABLET GT SCH ×2 (05:05→17:58)
[2017-04-06] MEDS: RENAL NOVASOURCE 1,000 ML BOTTLE GT PRN (05:12)
[2017-04-06] MEDS: IPRATROPIUM NEB FS 0.5 MG/2.5 ML AMPUL.NEB IH SCH ×2 (07:25→20:16)
[2017-04-06] MEDS: ALBUTEROL FS 2.5 MG/0.5 ML VIAL.NEB NEB SCH ×2 (07:25→20:16)
[2017-04-06 07:31] VITALS: BP 91/45
[2017-04-06] MEDS: POLYVINYL ALCOHOL 15 ML BOTTLE EACHEYE SCH ×2 (09:18→21:41)
[2017-04-06] MEDS: MIDODRINE HCL (5MG) 5 MG TABLET GT SCH ×2 (09:18→21:42)
[2017-04-06] MEDS: PROSTAT (PYXIS) 30 ML UDC GT SCH (09:18)
[2017-04-06] MEDS: CLOTRIMAZOLE 1% 15 GM TUBE TP SCH ×2 (09:19→21:42)
[2017-04-06] MEDS: CIPROFLOXACIN HCL 0.3% 5 ML BOTTLE LEFTEYE SCH ×4 (09:19→21:42)
[2017-04-06] MEDS: Z GUARD REMEDY 4 OZ OINT TP SCH ×2 (09:19→21:42)
--- NOTE | 2017-04-06 19:00 | NUR ---
Pt has left eye redness, no drainage.
[2017-04-06 19:54] VITALS: BP 85/56
[2017-04-06] MEDS: MULTIVIT, IRON, MIN NO. 8, FA 1 TAB GT SCH (21:42)
[2017-04-06] MEDS: FAMOTIDINE (20 MG) 20 MG TABLET GT SCH (21:42)
[2017-04-06] MEDS: SENNOSIDES 8.6 MG TABLET GT SCH (21:42)
[2017-04-07] MEDS: PREVACID (NF) 30 MG TAB GT SCH (05:45)
[2017-04-07] MEDS: BACLOFEN (10 MG) 10 MG TABLET GT SCH ×2 (05:45→17:29)
[2017-04-07] MEDS: IPRATROPIUM NEB FS 0.5 MG/2.5 ML AMPUL.NEB IH SCH ×2 (07:55→19:56)
[2017-04-07] MEDS: ALBUTEROL FS 2.5 MG/0.5 ML VIAL.NEB NEB SCH ×2 (07:55→19:56)
[2017-04-07] MEDS: POLYVINYL ALCOHOL 15 ML BOTTLE EACHEYE SCH ×2 (09:24→21:24)
[2017-04-07] MEDS: PROSTAT (PYXIS) 30 ML UDC GT SCH (09:24)
[2017-04-07] MEDS: CLOTRIMAZOLE 1% 15 GM TUBE TP SCH ×2 (09:24→21:25)
[2017-04-07] MEDS: Z GUARD REMEDY 4 OZ OINT TP SCH ×2 (09:24→21:25)
[2017-04-07] MEDS: CIPROFLOXACIN HCL 0.3% 5 ML BOTTLE LEFTEYE SCH ×4 (09:24→21:25)
[2017-04-07] MEDS: MIDODRINE HCL (5MG) 5 MG TABLET GT SCH ×2 (09:24→21:24)
--- NOTE | 2017-04-07 11:22 | NUR ---
Received a culture and sensitivity report. Spoke with Dr. Nichole Dugan and informed her that report came positive for staph aureus and MRSA and is sensitive to Vancomycin, Rifampin and Trimet/sulpha. Also, mentioned her that the patient is currently on ciprofloxacin eye drops. She gave an order to start Isolation for MRSA and have a consult for Makeda PETERS. Will notify Makeda.
--- NOTE | 2017-04-07 12:24 | NUR ---
Patient is positive for MRSA on left eye culture. Has left eye redness with no secretions.
[2017-04-07 20:35] VITALS: BP 85/44
[2017-04-07] MEDS: MULTIVIT, IRON, MIN NO. 8, FA 1 TAB GT SCH (21:24)
[2017-04-07] MEDS: FAMOTIDINE (20 MG) 20 MG TABLET GT SCH (21:25)
[2017-04-07] MEDS: SENNOSIDES 8.6 MG TABLET GT SCH (21:25)
[2017-04-07] MEDS: RENAL NOVASOURCE 1,000 ML BOTTLE GT PRN (21:45)
[2017-04-08] VITALS: BP 99/62
[2017-04-08] MEDS: PREVACID (NF) 30 MG TAB GT SCH (05:07)
[2017-04-08] MEDS: BACLOFEN (10 MG) 10 MG TABLET GT SCH ×2 (05:07→17:48)
--- NOTE | 2017-04-08 06:30 | NUR ---
Pt noted with increased yellow secretions with blood tinged.No respiratory distress.Will continue to monitor.
[2017-04-08] MEDS: ALBUTEROL FS 2.5 MG/0.5 ML VIAL.NEB NEB SCH ×2 (07:20→18:58)
[2017-04-08] MEDS: IPRATROPIUM NEB FS 0.5 MG/2.5 ML AMPUL.NEB IH SCH ×2 (07:21→18:58)
[2017-04-08 07:35] VITALS: BP 143/91
[2017-04-08] MEDS: CLOTRIMAZOLE 1% 15 GM TUBE TP SCH ×2 (09:00→21:58)
[2017-04-08] MEDS: POLYVINYL ALCOHOL 15 ML BOTTLE EACHEYE SCH ×2 (09:00→21:57)
[2017-04-08] MEDS: MIDODRINE HCL (5MG) 5 MG TABLET GT SCH ×2 (09:00→21:58)
[2017-04-08] MEDS: NEOMY SULF/BACITRAC ZN/POLY 15 GM TUBE TP SCH ×2 (09:00→21:58)
[2017-04-08] MEDS: PROSTAT (PYXIS) 30 ML UDC GT SCH (09:00)
[2017-04-08] MEDS: CIPROFLOXACIN HCL 0.3% 5 ML BOTTLE LEFTEYE SCH ×4 (09:00→21:00)
[2017-04-08] MEDS: Z GUARD REMEDY 4 OZ OINT TP SCH ×2 (09:00→21:58)
--- NOTE | 2017-04-08 09:57 | NUR ---
Called pt's sister Judith and left message regarding left eye redness, Cipro eye drops, and contact isolation.
[2017-04-08 10:13] VITALS: BP 87/56
--- NOTE | 2017-04-08 10:28 | NUR ---
Pt's sister Judith called. She spoke with Subacute sales department manager regarding room for isolation. Requested NIKI Ashford to see pt for MRSA left eye. NIKI Ashford said she will see pt.
--- NOTE | 2017-04-08 18:00 | NUR ---
NIKI Ashford ordered to DC Ciprofloxacin eye drops and change antibiotic to Vancomycin ophthalmic drops, pharmacy to dose. She also said to have an life skills educator see the pt.
[2017-04-08 20:52] VITALS: BP 90/46
[2017-04-08] MEDS: SENNOSIDES 8.6 MG TABLET GT SCH (21:58)
[2017-04-08] MEDS: FAMOTIDINE (20 MG) 20 MG TABLET GT SCH (21:58)
[2017-04-08] MEDS: MULTIVIT, IRON, MIN NO. 8, FA 1 TAB GT SCH (21:58)
[2017-04-08] MEDS: RENAL NOVASOURCE 1,000 ML BOTTLE GT PRN (22:02)
[2017-04-09] MEDS: PREVACID (NF) 30 MG TAB GT SCH (05:21)
[2017-04-09] MEDS: BACLOFEN (10 MG) 10 MG TABLET GT SCH ×2 (05:21→17:11)
[2017-04-09] MEDS: ALBUTEROL FS 2.5 MG/0.5 ML VIAL.NEB NEB SCH ×2 (06:55→19:50)
[2017-04-09] MEDS: IPRATROPIUM NEB FS 0.5 MG/2.5 ML AMPUL.NEB IH SCH ×2 (06:55→19:50)
[2017-04-09] MEDS: LACTULOSE 10 G/15 ML UDC (PYXIS) GT PRN (07:01)
[2017-04-09 07:25] VITALS: BP 88/55
[2017-04-09] MEDS: PROSTAT (PYXIS) 30 ML UDC GT SCH (08:35)
[2017-04-09] MEDS: MIDODRINE HCL (5MG) 5 MG TABLET GT SCH ×2 (08:35→20:40)
[2017-04-09] MEDS: POLYVINYL ALCOHOL 15 ML BOTTLE EACHEYE SCH ×2 (08:35→20:40)
[2017-04-09] MEDS: CLOTRIMAZOLE 1% 15 GM TUBE TP SCH (08:36)
[2017-04-09] MEDS: Z GUARD REMEDY 4 OZ OINT TP SCH (08:36)
[2017-04-09] MEDS: NEOMY SULF/BACITRAC ZN/POLY 15 GM TUBE TP SCH ×2 (08:36→21:13)
[2017-04-09] MEDS: CIPROFLOXACIN HCL 0.3% 5 ML BOTTLE LEFTEYE SCH ×3 (09:00→16:33)
--- NOTE | 2017-04-09 11:30 | NUR ---
call made to [facility] regarding vancomycin eye drops for resident.pharmacist said that the medication is not covered by insurance.asked them to fax it over the papers to bill facility.no response received after,call made again to enquire about medication.spoke to another pharmacist said that [facility] pharmacy don't compound this medication.DR Stark made aware.but doctor want to continue with vanco and follow up with ophthalmology consult.call made to [facility],spoke to jakob said that our pharmacy don't compound this medication and they called various pharmacies and they are not able to compound this medication. made aware. Addendum: 04/10/17 at 1518 by CROW RICHARD RN JACQUES made aware instead of
--- NOTE | 2017-04-09 15:00 | NUR ---
Call made to [facility] pharmacy again.spoke to wesley.said that she will sent the medication stat.waiting for medication to be arrived.
--- NOTE | 2017-04-09 18:30 | NUR ---
INTERDISCIPLINARY TEAM CONFERENCE (IDT) was held today. Resident's sister garry attended meeting. Dr. Macario and the interdisciplinary team reviewed the current plan of care in detail. New orders were reviewed. Resident will continue to have eye drops for current condition and will continue the isolation. new orders were given to D/C pepcid as per pharmacy recommendation and RNA changed to BID from daily as per sister's request.family addressed concern regarding trach capping and oral feeding, explained that she is not a candidate for oral feeding and trach capping now.will wait for her to be more alert and oriented to be start on trial.continue to monitor for now.
[2017-04-09 19:26] VITALS: BP 106/74
--- NOTE | 2017-04-09 19:30 | NUR ---
Got call from [facility] pharmacy said that they can't compound vancomycin eye drops and recommending bactrim though G Tube.Say made aware,but she don't want to start bactrim .waiting for further response.
--- NOTE | 2017-04-09 19:45 | NUR ---
[facility] pharmacy called and said that they cannot compound Vancomycin and not covered by the insurance.Left message to Makeda to inform her that medication is not available and maybe can change it to other meds.Waiting for response.Will follow up.
[2017-04-09] MEDS: SENNOSIDES 8.6 MG TABLET GT SCH (21:13)
[2017-04-09] MEDS: MULTIVIT, IRON, MIN NO. 8, FA 1 TAB GT SCH (21:13)
[2017-04-10] MEDS: PREVACID (NF) 30 MG TAB GT SCH (05:59)
[2017-04-10] MEDS: BACLOFEN (10 MG) 10 MG TABLET GT SCH ×2 (05:59→17:42)
[2017-04-10] MEDS: IPRATROPIUM NEB FS 0.5 MG/2.5 ML AMPUL.NEB IH SCH ×2 (07:23→20:11)
[2017-04-10] MEDS: ALBUTEROL FS 2.5 MG/0.5 ML VIAL.NEB NEB SCH ×2 (07:23→20:11)
[2017-04-10 07:58] VITALS: BP 88/50
[2017-04-10] MEDS: POLYVINYL ALCOHOL 15 ML BOTTLE EACHEYE SCH ×2 (09:33→21:00)
[2017-04-10] MEDS: MIDODRINE HCL (5MG) 5 MG TABLET GT SCH ×2 (09:34→21:00)
[2017-04-10] MEDS: PROSTAT (PYXIS) 30 ML UDC GT SCH (09:35)
[2017-04-10] MEDS: Z GUARD REMEDY 4 OZ OINT TP SCH ×2 (09:35→21:00)
[2017-04-10] MEDS: CLOTRIMAZOLE 1% 15 GM TUBE TP SCH ×2 (09:35→21:00)
[2017-04-10] MEDS: NEOMY SULF/BACITRAC ZN/POLY 15 GM TUBE TP SCH ×2 (09:36→21:00)
--- NOTE | 2017-04-10 10:15 | NUR ---
Notified NIKI Ashford that pt's Vancomycin eye drops cannot be compounded by the pharmacy and is not covered by pt's insurance.
--- NOTE | 2017-04-10 11:47 | NUR ---
NIKI Ashford said the pt antibiotic should be eye drops. She did not order any alternative eye drops. She said there may be other alternatives to the Vancomycin eye drops but an loom changer needs to determine it. [facility] pharmacist Micki they will not be able to provide it because it is unavailable and they are not allowed to compound it. She said she already called other pharmacies but has not found one that will be able to provide it. Per Kendra of [facility] pharmacy, she said they are also not allowed to compound it, a license compounding pharmacy has to do it. Asked her if they will be able to order it from another pharmacy and provide it to our pt. She said she will call back. Notified NIKI Ashford that Vancomycin is currently unavailable and that [facility] has no loom changer, will need to find an loom changer to see the pt. Asked NIKI Ashford if she wanted to order any other antibiotic eye drops while Vancomycin is not available.
--- NOTE | 2017-04-10 11:55 | NUR ---
Kendra from [facility] pharmacy called and said they might be able to provide Vancomycin eye drops through their IV department. She asked to re-fax the order. [facility]. Addendum: 04/10/17 at 1217 by MIGUELANGEL REEDER RN Notified NIKI Ashford.
--- NOTE | 2017-04-10 13:00 | NUR ---
Received order to give Vancomycin ophthalmic drops 50 mg/1 mL 1 drop to left eye q 6 hours for 7 days for left eye MRSA.
--- NOTE | 2017-04-10 13:55 | NUR ---
Notified pt's sister Judith regarding order to give Vancomycin eye drops. Judith expressed appreciation for call.
[2017-04-10] MEDS: VANCOMYCIN LEFTEYE SCH ×2 (16:15→21:00)
[2017-04-10 19:37] VITALS: BP 105/68
[2017-04-10] MEDS: MULTIVIT, IRON, MIN NO. 8, FA 1 TAB GT SCH (21:00)
[2017-04-10] MEDS: SENNOSIDES 8.6 MG TABLET GT SCH (22:58)
[2017-04-11] MEDS: VANCOMYCIN LEFTEYE SCH ×4 (02:58→21:21)
[2017-04-11] MEDS: RENAL NOVASOURCE 1,000 ML BOTTLE GT PRN (06:13)
[2017-04-11] MEDS: PREVACID (NF) 30 MG TAB GT SCH (06:25)
[2017-04-11] MEDS: BACLOFEN (10 MG) 10 MG TABLET GT SCH ×2 (06:26→18:12)
--- NOTE | 2017-04-11 07:00 | NUR ---
SLEPT FAIRLY FEEDING ON PROGRESS. AM CARE DONE BY THE FISCAL SERVICES MANAGER.
[2017-04-11] MEDS: ALBUTEROL FS 2.5 MG/0.5 ML VIAL.NEB NEB SCH ×2 (07:23→19:56)
[2017-04-11] MEDS: IPRATROPIUM NEB FS 0.5 MG/2.5 ML AMPUL.NEB IH SCH ×2 (07:23→19:56)
[2017-04-11 08:26] VITALS: BP 88/58
[2017-04-11] MEDS: POLYVINYL ALCOHOL 15 ML BOTTLE EACHEYE SCH ×2 (09:44→21:21)
[2017-04-11] MEDS: PROSTAT (PYXIS) 30 ML UDC GT SCH (09:44)
[2017-04-11] MEDS: MIDODRINE HCL (5MG) 5 MG TABLET GT SCH ×2 (09:44→21:21)
[2017-04-11] MEDS: NEOMY SULF/BACITRAC ZN/POLY 15 GM TUBE TP SCH ×2 (09:45→21:22)
[2017-04-11] MEDS: CLOTRIMAZOLE 1% 15 GM TUBE TP SCH ×2 (09:45→21:22)
[2017-04-11] MEDS: Z GUARD REMEDY 4 OZ OINT TP SCH ×2 (09:45→21:22)
[2017-04-11 20:07] VITALS: BP 108/77
[2017-04-11] MEDS: MULTIVIT, IRON, MIN NO. 8, FA 1 TAB GT SCH (21:21)
[2017-04-11] MEDS: SENNOSIDES 8.6 MG TABLET GT SCH (21:22)
[2017-04-12] MEDS: VANCOMYCIN LEFTEYE SCH ×4 (03:00→21:26)
[2017-04-12] MEDS: PREVACID (NF) 30 MG TAB GT SCH (05:34)
[2017-04-12] MEDS: BACLOFEN (10 MG) 10 MG TABLET GT SCH ×2 (05:34→17:30)
[2017-04-12] MEDS: ALBUTEROL FS 2.5 MG/0.5 ML VIAL.NEB NEB SCH ×2 (06:59→20:26)
[2017-04-12] MEDS: IPRATROPIUM NEB FS 0.5 MG/2.5 ML AMPUL.NEB IH SCH ×2 (06:59→20:26)
[2017-04-12 07:41] VITALS: BP 81/52
[2017-04-12] MEDS: NEOMY SULF/BACITRAC ZN/POLY 15 GM TUBE TP SCH ×2 (09:00→21:27)
[2017-04-12] MEDS: CLOTRIMAZOLE 1% 15 GM TUBE TP SCH ×2 (09:00→21:26)
[2017-04-12] MEDS: Z GUARD REMEDY 4 OZ OINT TP SCH ×2 (09:00→21:27)
[2017-04-12] MEDS: MIDODRINE HCL (5MG) 5 MG TABLET GT SCH ×2 (09:08→21:26)
[2017-04-12] MEDS: POLYVINYL ALCOHOL 15 ML BOTTLE EACHEYE SCH ×2 (09:08→21:26)
[2017-04-12] MEDS: PROSTAT (PYXIS) 30 ML UDC GT SCH (09:08)
[2017-04-12 20:00] VITALS: BP 99/58
[2017-04-12] MEDS: MULTIVIT, IRON, MIN NO. 8, FA 1 TAB GT SCH (21:26)
[2017-04-12] MEDS: SENNOSIDES 8.6 MG TABLET GT SCH (21:27)
[2017-04-13] MEDS: VANCOMYCIN LEFTEYE SCH ×4 (03:00→21:10)
[2017-04-13] MEDS: BACLOFEN (10 MG) 10 MG TABLET GT SCH ×2 (06:10→17:14)
[2017-04-13] MEDS: PREVACID (NF) 30 MG TAB GT SCH (06:10)
[2017-04-13] MEDS: IPRATROPIUM NEB FS 0.5 MG/2.5 ML AMPUL.NEB IH SCH ×2 (07:31→18:54)
[2017-04-13] MEDS: ALBUTEROL FS 2.5 MG/0.5 ML VIAL.NEB NEB SCH ×2 (07:31→18:54)
[2017-04-13 07:44] VITALS: BP 112/74
--- NOTE | 2017-04-13 09:00 | NUR ---
Noted with right axilla rash.no open skin noticed,treatment initiated.family notified.spoke to sister .continue to monitor.
[2017-04-13] MEDS: POLYVINYL ALCOHOL 15 ML BOTTLE EACHEYE SCH ×2 (09:37→21:09)
[2017-04-13] MEDS: CLOTRIMAZOLE 1% 15 GM TUBE TP SCH ×2 (09:38→21:10)
[2017-04-13] MEDS: PROSTAT (PYXIS) 30 ML UDC GT SCH (09:38)
[2017-04-13] MEDS: MIDODRINE HCL (5MG) 5 MG TABLET GT SCH ×2 (09:38→21:10)
[2017-04-13] MEDS: NEOMY SULF/BACITRAC ZN/POLY 15 GM TUBE TP SCH ×2 (09:39→21:10)
[2017-04-13] MEDS: Z GUARD REMEDY 4 OZ OINT TP SCH ×2 (09:39→21:11)
--- NOTE | 2017-04-13 14:56 | NUR ---
Informed CNO of the difficulties of finding an pellet machine operator. Awaiting response.
[2017-04-13] MEDS: NYSTATIN TOP POWDER 15 GM BOTTLE TP SCH (21:10)
[2017-04-13] MEDS: MULTIVIT, IRON, MIN NO. 8, FA 1 TAB GT SCH (21:10)
[2017-04-13] MEDS: SENNOSIDES 8.6 MG TABLET GT SCH (21:11)
[2017-04-13 22:03] VITALS: BP 85/45
[2017-04-14] MEDS: VANCOMYCIN LEFTEYE SCH ×4 (03:00→21:06)
[2017-04-14] MEDS: PREVACID (NF) 30 MG TAB GT SCH (05:44)
[2017-04-14] MEDS: BACLOFEN (10 MG) 10 MG TABLET GT SCH ×2 (05:44→17:56)
[2017-04-14] MEDS: ALBUTEROL FS 2.5 MG/0.5 ML VIAL.NEB NEB SCH ×2 (07:12→19:45)
[2017-04-14] MEDS: IPRATROPIUM NEB FS 0.5 MG/2.5 ML AMPUL.NEB IH SCH ×2 (07:12→19:45)
[2017-04-14 08:00] VITALS: BP 96/65
[2017-04-14] MEDS: Z GUARD REMEDY 4 OZ OINT TP SCH ×2 (09:00→21:07)
[2017-04-14] MEDS: POLYVINYL ALCOHOL 15 ML BOTTLE EACHEYE SCH ×2 (09:00→21:06)
[2017-04-14] MEDS: CLOTRIMAZOLE 1% 15 GM TUBE TP SCH ×2 (09:00→21:06)
[2017-04-14] MEDS: NYSTATIN TOP POWDER 15 GM BOTTLE TP SCH ×2 (09:00→21:07)
[2017-04-14] MEDS: MIDODRINE HCL (5MG) 5 MG TABLET GT SCH ×2 (09:00→21:06)
[2017-04-14] MEDS: NEOMY SULF/BACITRAC ZN/POLY 15 GM TUBE TP SCH ×2 (09:00→21:07)
[2017-04-14] MEDS: PROSTAT (PYXIS) 30 ML UDC GT SCH (09:00)
[2017-04-14] MEDS: RENAL NOVASOURCE 1,000 ML BOTTLE GT PRN (17:57)
[2017-04-14 20:12] VITALS: BP 97/72
[2017-04-14] MEDS: MULTIVIT, IRON, MIN NO. 8, FA 1 TAB GT SCH (21:06)
[2017-04-14] MEDS: SENNOSIDES 8.6 MG TABLET GT SCH (21:07)
[2017-04-15] MEDS: VANCOMYCIN LEFTEYE SCH ×4 (03:22→21:21)
[2017-04-15] MEDS: BACLOFEN (10 MG) 10 MG TABLET GT SCH ×2 (05:29→18:54)
[2017-04-15] MEDS: PREVACID (NF) 30 MG TAB GT SCH (05:29)
[2017-04-15] MEDS: IPRATROPIUM NEB FS 0.5 MG/2.5 ML AMPUL.NEB IH SCH ×2 (07:44→19:03)
[2017-04-15] MEDS: ALBUTEROL FS 2.5 MG/0.5 ML VIAL.NEB NEB SCH ×2 (07:44→19:03)
[2017-04-15 07:48] VITALS: BP 83/59
[2017-04-15] MEDS: PROSTAT (PYXIS) 30 ML UDC GT SCH (09:00)
[2017-04-15] MEDS: NYSTATIN TOP POWDER 15 GM BOTTLE TP SCH ×2 (09:00→21:21)
[2017-04-15] MEDS: POLYVINYL ALCOHOL 15 ML BOTTLE EACHEYE SCH ×2 (09:00→21:19)
[2017-04-15] MEDS: CLOTRIMAZOLE 1% 15 GM TUBE TP SCH ×2 (09:00→21:21)
[2017-04-15] MEDS: MIDODRINE HCL (5MG) 5 MG TABLET GT SCH ×2 (09:00→21:19)
[2017-04-15] MEDS: Z GUARD REMEDY 4 OZ OINT TP SCH ×2 (09:00→21:21)
[2017-04-15] MEDS: MULTIVIT, IRON, MIN NO. 8, FA 1 TAB GT SCH (21:19)
[2017-04-15] MEDS: SENNOSIDES 8.6 MG TABLET GT SCH (21:21)
[2017-04-15 21:44] VITALS: BP 93/57
[2017-04-16] MEDS: VANCOMYCIN LEFTEYE SCH ×4 (03:46→21:32)
[2017-04-16] MEDS: RENAL NOVASOURCE 1,000 ML BOTTLE GT PRN (03:47)
[2017-04-16] MEDS: BACLOFEN (10 MG) 10 MG TABLET GT SCH ×2 (06:16→17:00)
[2017-04-16] MEDS: PREVACID (NF) 30 MG TAB GT SCH (06:16)
[2017-04-16] MEDS: ALBUTEROL FS 2.5 MG/0.5 ML VIAL.NEB NEB SCH ×2 (07:43→19:26)
[2017-04-16] MEDS: IPRATROPIUM NEB FS 0.5 MG/2.5 ML AMPUL.NEB IH SCH ×2 (07:43→19:26)
[2017-04-16 07:44] VITALS: BP 81/49
[2017-04-16] MEDS: POLYVINYL ALCOHOL 15 ML BOTTLE EACHEYE SCH ×2 (08:09→21:28)
[2017-04-16] MEDS: NYSTATIN TOP POWDER 15 GM BOTTLE TP SCH ×2 (08:10→21:33)
[2017-04-16] MEDS: PROSTAT (PYXIS) 30 ML UDC GT SCH (08:10)
[2017-04-16] MEDS: MIDODRINE HCL (5MG) 5 MG TABLET GT SCH ×2 (08:10→21:28)
[2017-04-16] MEDS: CLOTRIMAZOLE 1% 15 GM TUBE TP SCH ×2 (08:10→21:33)
[2017-04-16] MEDS: Z GUARD REMEDY 4 OZ OINT TP SCH ×2 (08:10→21:33)
--- NOTE | 2017-04-16 08:10 | NUR ---
Resident noticed with low blood pressure and hypothermic,BP- 77/54 T -93.5 with O2 SAT OF 96%.Resident is awake,not in distress.foot end elevated . made aware.Got an order for NS 500ml bolus x 1.noted and carried out.continue to monitor.
[2017-04-16] MEDS ORDERED: IV NS 0.9% 500 ML IV ONE (09:30)
--- NOTE | 2017-04-16 14:00 | NUR ---
INTERDISCIPLINARY TEAM CONFERENCE (IDT) was held today. Resident's sister garry attended via telephone conference. Dr. Macario and the interdisciplinary team reviewed the current plan of care in detail. New orders were reviewed.medications were reviewed with pharmacy regarding cause of low blood pressure and hypothermia. Resident will continue to have eye drops for MRSA.discussed about recent low blood pressure .informed that will continue to monitor . new orders were given to do CBC,BMP and thyroid panel on 04/19/17.
[2017-04-16] MEDS: MULTIVIT, IRON, MIN NO. 8, FA 1 TAB GT SCH (21:29)
[2017-04-16] MEDS: SENNOSIDES 8.6 MG TABLET GT SCH (21:33)
[2017-04-16 21:40] VITALS: BP 98/56
[2017-04-17] MEDS: VANCOMYCIN LEFTEYE SCH ×2 (03:50→09:00)
[2017-04-17] MEDS: PREVACID (NF) 30 MG TAB GT SCH (05:53)
[2017-04-17] MEDS: BACLOFEN (10 MG) 10 MG TABLET GT SCH ×2 (05:53→18:15)
[2017-04-17] MEDS: RENAL NOVASOURCE 1,000 ML BOTTLE GT PRN (05:54)
[2017-04-17 07:46] VITALS: BP 88/50
[2017-04-17] MEDS: IPRATROPIUM NEB FS 0.5 MG/2.5 ML AMPUL.NEB IH SCH ×2 (08:22→19:30)
[2017-04-17] MEDS: ALBUTEROL FS 2.5 MG/0.5 ML VIAL.NEB NEB SCH ×2 (08:22→19:30)
[2017-04-17] MEDS: CLOTRIMAZOLE 1% 15 GM TUBE TP SCH ×2 (09:00→21:28)
[2017-04-17] MEDS: MIDODRINE HCL (5MG) 5 MG TABLET GT SCH ×2 (09:00→21:27)
[2017-04-17] MEDS: POLYVINYL ALCOHOL 15 ML BOTTLE EACHEYE SCH ×2 (09:00→21:27)
[2017-04-17] MEDS: NYSTATIN TOP POWDER 15 GM BOTTLE TP SCH ×2 (09:00→21:29)
[2017-04-17] MEDS: PROSTAT (PYXIS) 30 ML UDC GT SCH (09:00)
[2017-04-17] MEDS: Z GUARD REMEDY 4 OZ OINT TP SCH ×2 (09:00→21:29)
[2017-04-17] MEDS: MULTIVIT, IRON, MIN NO. 8, FA 1 TAB GT SCH (21:27)
[2017-04-17] MEDS: SENNOSIDES 8.6 MG TABLET GT SCH (21:30)
[2017-04-17 21:57] VITALS: BP 94/59
[2017-04-18] MEDS: BACLOFEN (10 MG) 10 MG TABLET GT SCH ×2 (05:23→18:53)
[2017-04-18] MEDS: RENAL NOVASOURCE 1,000 ML BOTTLE GT PRN (05:23)
[2017-04-18] MEDS: PREVACID (NF) 30 MG TAB GT SCH (05:23)
[2017-04-18] MEDS: LACTULOSE 10 G/15 ML UDC (PYXIS) GT PRN (06:42)
[2017-04-18] MEDS: ALBUTEROL FS 2.5 MG/0.5 ML VIAL.NEB NEB SCH ×2 (07:45→20:08)
[2017-04-18] MEDS: IPRATROPIUM NEB FS 0.5 MG/2.5 ML AMPUL.NEB IH SCH ×2 (07:45→20:08)
[2017-04-18] MEDS: Z GUARD REMEDY 4 OZ OINT TP SCH ×2 (09:00→21:24)
[2017-04-18] MEDS: MIDODRINE HCL (5MG) 5 MG TABLET GT SCH ×2 (09:00→21:24)
[2017-04-18] MEDS: CLOTRIMAZOLE 1% 15 GM TUBE TP SCH ×2 (09:00→21:24)
[2017-04-18] MEDS: POLYVINYL ALCOHOL 15 ML BOTTLE EACHEYE SCH ×2 (09:00→21:23)
[2017-04-18] MEDS: PROSTAT (PYXIS) 30 ML UDC GT SCH (09:00)
[2017-04-18] MEDS: NYSTATIN TOP POWDER 15 GM BOTTLE TP SCH ×2 (09:00→21:24)
--- NOTE | 2017-04-18 10:00 | NUR ---
Resident's eyes are still mild red with no discharge.SALESPERSON CORSETS Makeda made aware,got an order for continue the antibiotic for 7 more days.noted and carried out.responsible green party made aware spoke to garry.continue to monitor.
[2017-04-18] MEDS: VANCOMYCIN LEFTEYE SCH ×2 (12:00→18:53)
[2017-04-18 13:30] VITALS: BP 114/58
[2017-04-18 20:09] VITALS: BP 121/62
[2017-04-18] MEDS: MULTIVIT, IRON, MIN NO. 8, FA 1 TAB GT SCH (21:24)
[2017-04-18] MEDS: SENNOSIDES 8.6 MG TABLET GT SCH (21:24)
[2017-04-19] MEDS: VANCOMYCIN LEFTEYE SCH ×4 (00:49→17:39)
[2017-04-19] MEDS: PREVACID (NF) 30 MG TAB GT SCH (06:03)
[2017-04-19] MEDS: BACLOFEN (10 MG) 10 MG TABLET GT SCH ×2 (06:03→17:37)
[2017-04-19 06:40] LABS: CALCIUM, SERUM 10.1 mg/dL (8.5-10.1); CREATININE 0.6 mg/dL (0.6-1.3); POTASSIUM 3.7 mmol/L (3.5-5.1)
[2017-04-19] MEDS: IPRATROPIUM NEB FS 0.5 MG/2.5 ML AMPUL.NEB IH SCH ×2 (07:02→19:30)
[2017-04-19] MEDS: ALBUTEROL FS 2.5 MG/0.5 ML VIAL.NEB NEB SCH ×2 (07:02→19:30)
[2017-04-19 07:23] LABS: BASOPHILS % (AUTO) 0.6 % (0.0-2.0); EOSINOPHILS # (AUTO) 0.2 /CMM (0.0-0.7); HEMATOCRIT 24 % (33-45); HEMOGLOBIN 7.3 g/dL (11.5-14.8); LYMPHOCYTES # (AUTO) 2.4 /CMM (0.8-4.8); LYMPHOCYTES % (AUTO) 43.5 % (20.0-44.0); MEAN CORPUSCULAR HEMOGLOBIN 25 PG (26.0-33.0); MEAN CORPUSCULAR HGB CONC 30 g/dl (31.0-36.0); MEAN CORPUSCULAR VOLUME 83 fL (82-100); MONOCYTES # (AUTO) 0.5 /CMM (0.1-1.30); MONOCYTES % (AUTO) 9.1 % (2.0-12.0); NEUTROPHILS # (AUTO) 2.4 /CMM (1.8-8.9); NEUTROPHILS % (AUTO) 43.8 % (43.0-81.0); PLATELET COUNT (AUTO) 136 /CMM (150-450); RDW COEFFICIENT OF VARIATION 22.3 (11.5-15.0); RED BLOOD CELL COUNT(AUTO) 2.88 MIL/uL (4.0-5.2); WHITE BLOOD COUNT (AUTO) 5.5 K/uL (4.3-11.0)
[2017-04-19 07:27] LABS: THYROID STIMULATING HORMONE 3.71 uIU/mL (0.358-3.74)
[2017-04-19 08:49] VITALS: BP 72/60
[2017-04-19] MEDS: MIDODRINE HCL (5MG) 5 MG TABLET GT SCH ×2 (09:24→21:17)
[2017-04-19] MEDS: POLYVINYL ALCOHOL 15 ML BOTTLE EACHEYE SCH ×2 (09:24→21:17)
[2017-04-19] MEDS: PROSTAT (PYXIS) 30 ML UDC GT SCH (09:24)
[2017-04-19] MEDS: CLOTRIMAZOLE 1% 15 GM TUBE TP SCH ×2 (09:24→21:17)
[2017-04-19] MEDS: NYSTATIN TOP POWDER 15 GM BOTTLE TP SCH ×2 (09:25→21:17)
[2017-04-19] MEDS: Z GUARD REMEDY 4 OZ OINT TP SCH ×2 (09:25→21:17)
[2017-04-19 10:44] LABS: EOSINOPHILS % (MANUAL) 1 % (0-4); LYMPHOCYTES % (MANUAL) 17 % (16-48); MONOCYTES % (MANUAL) 7 % (0-11.0); NEUTROPHILS % (MANUAL) 75 (42-76)
--- NOTE | 2017-04-19 13:00 | NUR ---
Notified Dr. Nichole Dugan of CBC result with Hbg of 7.3, new order given for iron panel, Vit B 12 level, Folate and Occult Blood test. Spoke with resident's sister Judith notified of CBC result and MD's order. She verbalized concern regarding patient's eye medication, according to Judith the eye is responding well with the previous eye drops than the current order. Inform sister that will inform provider who ordered the eye drops of her concern.
[2017-04-19 13:48] LABS: IRON, SERUM 34 ug/dl (50-175); TOTAL IRON BINDING CAPACITY 261 ug/dl (250-450)
--- NOTE | 2017-04-19 14:05 | NUR ---
Seen and examined by Coby Pabon NP no new order given at this time.
[2017-04-19 20:06] VITALS: BP 98/62
[2017-04-19] MEDS: SENNOSIDES 8.6 MG TABLET GT SCH (21:17)
[2017-04-19] MEDS: MULTIVIT, IRON, MIN NO. 8, FA 1 TAB GT SCH (21:17)
[2017-04-20] MEDS: VANCOMYCIN LEFTEYE SCH ×4 (00:23→17:53)
[2017-04-20] MEDS: PREVACID (NF) 30 MG TAB GT SCH (06:00)
[2017-04-20] MEDS: BACLOFEN (10 MG) 10 MG TABLET GT SCH ×2 (06:00→17:51)
[2017-04-20] MEDS: ALBUTEROL FS 2.5 MG/0.5 ML VIAL.NEB NEB SCH ×2 (08:19→20:02)
[2017-04-20] MEDS: IPRATROPIUM NEB FS 0.5 MG/2.5 ML AMPUL.NEB IH SCH ×2 (08:19→20:02)
[2017-04-20] MEDS: POLYVINYL ALCOHOL 15 ML BOTTLE EACHEYE SCH ×2 (09:46→21:07)
[2017-04-20] MEDS: PROSTAT (PYXIS) 30 ML UDC GT SCH (09:47)
[2017-04-20] MEDS: MIDODRINE HCL (5MG) 5 MG TABLET GT SCH ×2 (09:47→21:08)
[2017-04-20] MEDS: CLOTRIMAZOLE 1% 15 GM TUBE TP SCH ×2 (09:48→21:08)
[2017-04-20] MEDS: NYSTATIN TOP POWDER 15 GM BOTTLE TP SCH ×2 (09:48→21:08)
[2017-04-20] MEDS: Z GUARD REMEDY 4 OZ OINT TP SCH ×2 (09:49→21:08)
[2017-04-20 10:02] VITALS: BP 97/50
--- NOTE | 2017-04-20 12:40 | NUR ---
Notified Dr. Dugan that pt's lab results are now available. She said she will review them.
[2017-04-20 20:08] VITALS: BP 104/37
[2017-04-20] MEDS: MULTIVIT, IRON, MIN NO. 8, FA 1 TAB GT SCH (21:08)
[2017-04-20] MEDS: SENNOSIDES 8.6 MG TABLET GT SCH (21:08)
[2017-04-21] MEDS: VANCOMYCIN LEFTEYE SCH ×4 (00:23→17:15)
[2017-04-21] MEDS: ALBUTEROL FS 2.5 MG/0.5 ML VIAL.NEB NEB SCH ×2 (00:49→19:48)
[2017-04-21] MEDS: IPRATROPIUM NEB FS 0.5 MG/2.5 ML AMPUL.NEB IH SCH ×2 (00:49→19:48)
[2017-04-21] MEDS: PREVACID (NF) 30 MG TAB GT SCH (05:40)
[2017-04-21] MEDS: BACLOFEN (10 MG) 10 MG TABLET GT SCH ×2 (05:40→17:15)
[2017-04-21] MEDS: POLYVINYL ALCOHOL 15 ML BOTTLE EACHEYE SCH ×2 (08:28→21:06)
[2017-04-21] MEDS: PROSTAT (PYXIS) 30 ML UDC GT SCH (08:29)
[2017-04-21] MEDS: MIDODRINE HCL (5MG) 5 MG TABLET GT SCH ×2 (08:29→21:07)
[2017-04-21] MEDS: RENAL NOVASOURCE 1,000 ML BOTTLE GT PRN (08:30)
[2017-04-21] MEDS: CLOTRIMAZOLE 1% 15 GM TUBE TP SCH ×2 (09:00→21:10)
[2017-04-21] MEDS: Z GUARD REMEDY 4 OZ OINT TP SCH ×2 (09:00→21:10)
[2017-04-21] MEDS: NYSTATIN TOP POWDER 15 GM BOTTLE TP SCH ×2 (09:00→21:10)
[2017-04-21] MEDS: LACTULOSE 10 G/15 ML UDC (PYXIS) GT PRN (16:00)
[2017-04-21] MEDS: BISACODYL SUPP (10 MG) 10 MG/SUPP.RECT SUPP.RECT RC PRN (18:00)
--- NOTE | 2017-04-21 19:00 | NUR ---
Seen by Coby Pabon NP for EFREN Serrano given at this time. Specimen for stool for OB has not been collected yet, resident given PRN laxative and suppository for constipation. Endorsed to monitor.
[2017-04-21 20:11] VITALS: BP 98/72
[2017-04-21] MEDS: MULTIVIT, IRON, MIN NO. 8, FA 1 TAB GT SCH (21:08)
[2017-04-21] MEDS: SENNOSIDES 8.6 MG TABLET GT SCH (21:10)
[2017-04-22] MEDS: VANCOMYCIN LEFTEYE SCH ×5 (00:05→23:29)
[2017-04-22] MEDS: PREVACID (NF) 30 MG TAB GT SCH (05:54)
[2017-04-22] MEDS: RENAL NOVASOURCE 1,000 ML BOTTLE GT PRN (05:54)
[2017-04-22] MEDS: BACLOFEN (10 MG) 10 MG TABLET GT SCH ×2 (05:54→17:47)
[2017-04-22] MEDS: ALBUTEROL FS 2.5 MG/0.5 ML VIAL.NEB NEB SCH ×2 (07:37→19:33)
[2017-04-22] MEDS: IPRATROPIUM NEB FS 0.5 MG/2.5 ML AMPUL.NEB IH SCH ×2 (07:37→19:33)
[2017-04-22 07:38] VITALS: BP 89/52
[2017-04-22] MEDS: POLYVINYL ALCOHOL 15 ML BOTTLE EACHEYE SCH ×2 (08:32→21:12)
[2017-04-22] MEDS: MIDODRINE HCL (5MG) 5 MG TABLET GT SCH ×2 (08:32→21:13)
[2017-04-22] MEDS: CLOTRIMAZOLE 1% 15 GM TUBE TP SCH ×2 (08:33→21:13)
[2017-04-22] MEDS: Z GUARD REMEDY 4 OZ OINT TP SCH ×2 (08:33→21:13)
[2017-04-22] MEDS: PROSTAT (PYXIS) 30 ML UDC GT SCH (08:33)
[2017-04-22] MEDS: NYSTATIN TOP POWDER 15 GM BOTTLE TP SCH ×2 (08:33→21:13)
[2017-04-22 20:04] VITALS: BP 107/48
[2017-04-22] MEDS: MULTIVIT, IRON, MIN NO. 8, FA 1 TAB GT SCH (21:13)
[2017-04-22] MEDS: SENNOSIDES 8.6 MG TABLET GT SCH (21:13)
[2017-04-22] MEDS: LACTULOSE 10 G/15 ML UDC (PYXIS) GT PRN (21:14)
[2017-04-23] MEDS: PREVACID (NF) 30 MG TAB GT SCH (05:29)
[2017-04-23] MEDS: RENAL NOVASOURCE 1,000 ML BOTTLE GT PRN (05:29)
[2017-04-23] MEDS: VANCOMYCIN LEFTEYE SCH ×3 (05:29→17:49)
[2017-04-23] MEDS: BACLOFEN (10 MG) 10 MG TABLET GT SCH ×2 (05:29→17:49)
[2017-04-23] MEDS: ALBUTEROL FS 2.5 MG/0.5 ML VIAL.NEB NEB SCH ×2 (07:53→20:04)
[2017-04-23] MEDS: IPRATROPIUM NEB FS 0.5 MG/2.5 ML AMPUL.NEB IH SCH ×2 (07:53→20:04)
[2017-04-23] MEDS: NYSTATIN TOP POWDER 15 GM BOTTLE TP SCH ×2 (08:31→20:35)
[2017-04-23] MEDS: MIDODRINE HCL (5MG) 5 MG TABLET GT SCH ×2 (08:31→20:35)
[2017-04-23] MEDS: POLYVINYL ALCOHOL 15 ML BOTTLE EACHEYE SCH ×2 (08:31→20:35)
[2017-04-23] MEDS: Z GUARD REMEDY 4 OZ OINT TP SCH ×4 (08:31→20:35)
[2017-04-23] MEDS: PROSTAT (PYXIS) 30 ML UDC GT SCH (08:31)
[2017-04-23] MEDS: CLOTRIMAZOLE 1% 15 GM TUBE TP SCH ×2 (08:31→20:35)
[2017-04-23 09:00] VITALS: BP 93/48
[2017-04-23 20:06] VITALS: BP 113/71
[2017-04-23] MEDS: MULTIVIT, IRON, MIN NO. 8, FA 1 TAB GT SCH (20:35)
[2017-04-23] MEDS: LACTULOSE 10 G/15 ML UDC (PYXIS) GT PRN (20:36)
[2017-04-23] MEDS: SENNOSIDES 8.6 MG TABLET GT SCH (21:15)
[2017-04-24] MEDS: VANCOMYCIN LEFTEYE SCH ×5 (00:16→23:25)
[2017-04-24] MEDS: BACLOFEN (10 MG) 10 MG TABLET GT SCH ×2 (05:29→17:36)
[2017-04-24] MEDS: RENAL NOVASOURCE 1,000 ML BOTTLE GT PRN (05:29)
[2017-04-24] MEDS: PREVACID (NF) 30 MG TAB GT SCH (05:29)
[2017-04-24] MEDS: ALBUTEROL FS 2.5 MG/0.5 ML VIAL.NEB NEB SCH ×2 (06:56→19:19)
[2017-04-24] MEDS: IPRATROPIUM NEB FS 0.5 MG/2.5 ML AMPUL.NEB IH SCH ×2 (06:56→19:19)
[2017-04-24 07:37] VITALS: BP 113/57
[2017-04-24] MEDS: NYSTATIN TOP POWDER 15 GM BOTTLE TP SCH ×2 (09:40→20:34)
[2017-04-24] MEDS: Z GUARD REMEDY 4 OZ OINT TP SCH ×2 (09:40→20:34)
[2017-04-24] MEDS: POLYVINYL ALCOHOL 15 ML BOTTLE EACHEYE SCH ×2 (09:40→20:34)
[2017-04-24] MEDS: PROSTAT (PYXIS) 30 ML UDC GT SCH (09:40)
[2017-04-24] MEDS: MIDODRINE HCL (5MG) 5 MG TABLET GT SCH ×2 (09:40→20:34)
[2017-04-24 19:39] VITALS: BP 102/55
[2017-04-24] MEDS: MULTIVIT, IRON, MIN NO. 8, FA 1 TAB GT SCH (20:34)
[2017-04-24] MEDS: SENNOSIDES 8.6 MG TABLET GT SCH (21:23)
[2017-04-25] MEDS: LACTULOSE 10 G/15 ML UDC (PYXIS) GT PRN (05:18)
[2017-04-25] MEDS: PREVACID (NF) 30 MG TAB GT SCH (05:18)
[2017-04-25] MEDS: BACLOFEN (10 MG) 10 MG TABLET GT SCH ×2 (05:18→18:22)
[2017-04-25] MEDS: VANCOMYCIN LEFTEYE SCH (05:18)
[2017-04-25] MEDS: RENAL NOVASOURCE 1,000 ML BOTTLE GT PRN (05:18)
[2017-04-25 07:43] VITALS: BP 98/51
[2017-04-25] MEDS: IPRATROPIUM NEB FS 0.5 MG/2.5 ML AMPUL.NEB IH SCH ×2 (07:43→19:40)
[2017-04-25] MEDS: ALBUTEROL FS 2.5 MG/0.5 ML VIAL.NEB NEB SCH ×2 (07:43→19:40)
[2017-04-25] MEDS: POLYVINYL ALCOHOL 15 ML BOTTLE EACHEYE SCH ×2 (09:52→21:00)
[2017-04-25] MEDS: PROSTAT (PYXIS) 30 ML UDC GT SCH (09:53)
[2017-04-25] MEDS: MIDODRINE HCL (5MG) 5 MG TABLET GT SCH ×2 (09:53→21:00)
[2017-04-25] MEDS: Z GUARD REMEDY 4 OZ OINT TP SCH ×2 (09:53→21:00)
[2017-04-25] MEDS: NYSTATIN TOP POWDER 15 GM BOTTLE TP SCH ×2 (09:53→21:00)
[2017-04-25 19:33] VITALS: BP 116/83
[2017-04-25] MEDS: MULTIVIT, IRON, MIN NO. 8, FA 1 TAB GT SCH (21:00)
[2017-04-25] MEDS: SENNOSIDES 8.6 MG TABLET GT SCH (22:27)
[2017-04-26] MEDS: BACLOFEN (10 MG) 10 MG TABLET GT SCH ×2 (05:32→17:53)
[2017-04-26] MEDS: RENAL NOVASOURCE 1,000 ML BOTTLE GT PRN (05:32)
[2017-04-26] MEDS: PREVACID (NF) 30 MG TAB GT SCH (05:32)
[2017-04-26] MEDS: LACTULOSE 10 G/15 ML UDC (PYXIS) GT PRN (06:38)
[2017-04-26] MEDS: IPRATROPIUM NEB FS 0.5 MG/2.5 ML AMPUL.NEB IH SCH ×2 (07:16→19:48)
[2017-04-26] MEDS: ALBUTEROL FS 2.5 MG/0.5 ML VIAL.NEB NEB SCH ×2 (07:16→19:48)
[2017-04-26 07:45] VITALS: BP 83/58
[2017-04-26] MEDS: POLYVINYL ALCOHOL 15 ML BOTTLE EACHEYE SCH ×2 (09:15→21:14)
[2017-04-26] MEDS: MIDODRINE HCL (5MG) 5 MG TABLET GT SCH ×2 (09:15→21:14)
[2017-04-26] MEDS: Z GUARD REMEDY 4 OZ OINT TP SCH ×2 (09:17→21:14)
[2017-04-26] MEDS: PROSTAT (PYXIS) 30 ML UDC GT SCH (09:17)
[2017-04-26] MEDS: NYSTATIN TOP POWDER 15 GM BOTTLE TP SCH ×2 (09:17→21:14)
--- NOTE | 2017-04-26 12:00 | NUR ---
Seen by Dr. Dugan. Notified her that Vancomycin eye drops was already completed. Pt still has some redness on the left eye, but no drainage. Dr. Dugan said drainage indicates bacterial infection, but since there is no drainage, she did not order any treatment or culture. She said she referred the pt to NIKI Ashford. Notified her that NIKI Ashford ordered for ophthalmology consult and protective services social worker is still working on getting an radio electrician to see the pt. There is no radio electrician who currently has privileges at [facility]. No new order.
--- NOTE | 2017-04-26 12:50 | NUR ---
ordered to start ferrous sulfate 325mg tab GT BID for anemia.New orders noted and carried out.
[2017-04-26] MEDS: FERROUS SULFATE (325 MG) 325 MG/TAB TABLET GT SCH ×2 (13:00→17:05)
--- NOTE | 2017-04-26 18:55 | NUR ---
Pt was noted with bleeding from the mouth. Cleaned pt's mouth and examined it for any sores. Tooth nova were seen on the right side of her tongue near the tip. No further bleeding noted.
[2017-04-26 20:53] VITALS: BP 110/68
[2017-04-26] MEDS: MULTIVIT, IRON, MIN NO. 8, FA 1 TAB GT SCH (21:14)
[2017-04-26] MEDS: SENNOSIDES 8.6 MG TABLET GT SCH (21:14)
[2017-04-27] MEDS: BACLOFEN (10 MG) 10 MG TABLET GT SCH ×2 (05:32→18:06)
[2017-04-27] MEDS: PREVACID (NF) 30 MG TAB GT SCH (05:32)
[2017-04-27 07:23] VITALS: BP 108/68
[2017-04-27] MEDS: ALBUTEROL FS 2.5 MG/0.5 ML VIAL.NEB NEB SCH ×2 (07:28→19:35)
[2017-04-27] MEDS: IPRATROPIUM NEB FS 0.5 MG/2.5 ML AMPUL.NEB IH SCH ×2 (07:28→19:35)
[2017-04-27] MEDS: FERROUS SULFATE - FOR SA ONLY 330 MG/7.5 ML UDC GT SCH ×2 (08:53→17:00)
[2017-04-27] MEDS: PROSTAT (PYXIS) 30 ML UDC GT SCH (08:53)
[2017-04-27] MEDS: POLYVINYL ALCOHOL 15 ML BOTTLE EACHEYE SCH ×2 (08:53→21:05)
[2017-04-27] MEDS: MIDODRINE HCL (5MG) 5 MG TABLET GT SCH ×2 (08:53→21:06)
[2017-04-27] MEDS: Z GUARD REMEDY 4 OZ OINT TP SCH ×2 (08:54→21:06)
[2017-04-27] MEDS: NYSTATIN TOP POWDER 15 GM BOTTLE TP SCH (08:54)
[2017-04-27 20:00] VITALS: BP 101/66
[2017-04-27] MEDS: SENNOSIDES 8.6 MG TABLET GT SCH (21:06)
[2017-04-27] MEDS: MULTIVIT, IRON, MIN NO. 8, FA 1 TAB GT SCH (21:06)
[2017-04-27] MEDS: RENAL NOVASOURCE 1,000 ML BOTTLE GT PRN (21:24)
[2017-04-28] MEDS: PREVACID (NF) 30 MG TAB GT SCH (05:29)
[2017-04-28] MEDS: BACLOFEN (10 MG) 10 MG TABLET GT SCH ×2 (05:29→17:11)
[2017-04-28 07:43] VITALS: BP 93/61
[2017-04-28] MEDS: ALBUTEROL FS 2.5 MG/0.5 ML VIAL.NEB NEB SCH ×2 (08:07→19:30)
[2017-04-28] MEDS: IPRATROPIUM NEB FS 0.5 MG/2.5 ML AMPUL.NEB IH SCH ×2 (08:07→19:30)
[2017-04-28] MEDS: FERROUS SULFATE - FOR SA ONLY 330 MG/7.5 ML UDC GT SCH ×2 (09:48→17:11)
[2017-04-28] MEDS: POLYVINYL ALCOHOL 15 ML BOTTLE EACHEYE SCH ×2 (09:48→21:00)
[2017-04-28] MEDS: PROSTAT (PYXIS) 30 ML UDC GT SCH (09:49)
[2017-04-28] MEDS: Z GUARD REMEDY 4 OZ OINT TP SCH ×2 (09:49→21:00)
[2017-04-28] MEDS: MIDODRINE HCL (5MG) 5 MG TABLET GT SCH ×2 (09:49→21:00)
[2017-04-28 20:29] VITALS: BP 101/65
[2017-04-28] MEDS: SENNOSIDES 8.6 MG TABLET GT SCH (21:00)
[2017-04-28] MEDS: MULTIVIT, IRON, MIN NO. 8, FA 1 TAB GT SCH (21:00)
[2017-04-29] MEDS: BACLOFEN (10 MG) 10 MG TABLET GT SCH ×2 (05:52→17:04)
[2017-04-29] MEDS: PREVACID (NF) 30 MG TAB GT SCH (05:52)
[2017-04-29] MEDS: ALBUTEROL FS 2.5 MG/0.5 ML VIAL.NEB NEB SCH ×2 (08:00→19:02)
[2017-04-29] MEDS: IPRATROPIUM NEB FS 0.5 MG/2.5 ML AMPUL.NEB IH SCH ×2 (08:00→19:02)
--- NOTE | 2017-04-29 08:49 | NUR ---
Spoke to resident's sister and reminded her about IDT meeting this Sunday April 30, 2017 from 12:30-1:30PM. She stated that she wants to do a phone conference but that her mother might also be here. SW informed her that we can do a telephone conference and if mother is here, she can also participate. Appreciated the information given.
[2017-04-29] MEDS: FERROUS SULFATE - FOR SA ONLY 330 MG/7.5 ML UDC GT SCH ×2 (09:10→17:04)
[2017-04-29] MEDS: POLYVINYL ALCOHOL 15 ML BOTTLE EACHEYE SCH ×2 (09:10→20:55)
[2017-04-29] MEDS: PROSTAT (PYXIS) 30 ML UDC GT SCH (09:11)
[2017-04-29] MEDS: Z GUARD REMEDY 4 OZ OINT TP SCH ×2 (09:11→20:56)
[2017-04-29] MEDS: MIDODRINE HCL (5MG) 5 MG TABLET GT SCH ×2 (09:11→20:55)
[2017-04-29] MEDS: RENAL NOVASOURCE 1,000 ML BOTTLE GT PRN (17:11)
[2017-04-29 19:43] VITALS: BP 91/60
[2017-04-29] MEDS: MULTIVIT, IRON, MIN NO. 8, FA 1 TAB GT SCH (20:55)
[2017-04-29] MEDS: SENNOSIDES 8.6 MG TABLET GT SCH (21:15)
[2017-04-30] MEDS: PREVACID (NF) 30 MG TAB GT SCH (05:32)
[2017-04-30] MEDS: BACLOFEN (10 MG) 10 MG TABLET GT SCH ×2 (05:32→17:45)
[2017-04-30] MEDS: LACTULOSE 10 G/15 ML UDC (PYXIS) GT PRN (05:32)
[2017-04-30] MEDS: BISACODYL SUPP (10 MG) 10 MG/SUPP.RECT SUPP.RECT RC PRN (05:34)
[2017-04-30 07:38] VITALS: BP 126/66
[2017-04-30] MEDS: IPRATROPIUM NEB FS 0.5 MG/2.5 ML AMPUL.NEB IH SCH ×2 (07:58→19:30)
[2017-04-30] MEDS: ALBUTEROL FS 2.5 MG/0.5 ML VIAL.NEB NEB SCH ×2 (07:58→19:30)
[2017-04-30] MEDS: FERROUS SULFATE - FOR SA ONLY 330 MG/7.5 ML UDC GT SCH ×2 (08:45→17:44)
[2017-04-30] MEDS: POLYVINYL ALCOHOL 15 ML BOTTLE EACHEYE SCH ×2 (08:45→17:44)
[2017-04-30] MEDS: PROSTAT (PYXIS) 30 ML UDC GT SCH (08:46)
[2017-04-30] MEDS: MIDODRINE HCL (5MG) 5 MG TABLET GT SCH ×2 (08:46→20:37)
[2017-04-30] MEDS: Z GUARD REMEDY 4 OZ OINT TP SCH ×2 (08:46→20:37)
--- NOTE | 2017-04-30 14:00 | NUR ---
IDT meeting held, reviewed medications, treatment orders and labs. Pharmacist reviewed medications and dietitian reviewed weights with family. It was brought up by Judith (sister) patient's isolation and infection in the eye. Treatment in the L eye, Vancomycin eye drops is completed and it is no longer red. During the meeting, it was mentioned that ID following the patient will be notified of family's concern. Dr. Macario ordered to do KUB due to abdominal distention and increased frequency of artificial tears eyes drops from Q12 hours to Q6 hours. All orders noted and carried out.
--- NOTE | 2017-04-30 14:52 | NUR ---
Sister Judith (by telephone) and the resident's mother/conservator Sabrina (and her boyfriend) attended the IDT meeting. Mother Sabrina asked Dr. Macario what the likelihood is that the resident's condition would improve. Per Dr. Macario, resident has a very low likelihood that there will be any neurological changes. He discussed that the resident is not aware of her surroundings. However, mother seems to believe that resident feels her presence, is able to look at her/tilt her head towards the tv, and gets mad at her when she does not visit for long periods of time. Mother also expressed that resident has swelling in the stomach and face. Per Dr. Macario, this is due to fluid retention. Concerns were addressed by Dr. Macario. Please refer to IDT note.
--- NOTE | 2017-04-30 17:01 | NUR ---
Refer family's concern regarding L eye and isolation to NIKI Ashford ID. L eye no discharge, L eye redness much improved. New order received from practitioner to DC isolation. Notified Judith that isolation has been discontinued because the patient is asymptomatic. Explained to patient's sister that she will stay in the same room. She was also made aware also that abdominal KUB was ordered but it is not done. Assured her she will be notified of the result as soon as it is available, appreciated the call.
[2017-04-30 20:28] VITALS: BP 129/71
[2017-04-30] MEDS: MULTIVIT, IRON, MIN NO. 8, FA 1 TAB GT SCH (20:37)
[2017-04-30] MEDS: SENNOSIDES 8.6 MG TABLET GT SCH (21:27)
[2017-05-01] MEDS: POLYVINYL ALCOHOL 15 ML BOTTLE EACHEYE SCH ×5 (00:09→23:35)
[2017-05-01] MEDS: RENAL NOVASOURCE 1,000 ML BOTTLE GT PRN (05:25)
[2017-05-01] MEDS: LACTULOSE 10 G/15 ML UDC (PYXIS) GT PRN ×2 (05:25→20:41)
[2017-05-01] MEDS: BACLOFEN (10 MG) 10 MG TABLET GT SCH ×2 (05:25→18:00)
[2017-05-01] MEDS: PREVACID (NF) 30 MG TAB GT SCH (05:25)
[2017-05-01] MEDS: ALBUTEROL FS 2.5 MG/0.5 ML VIAL.NEB NEB SCH ×3 (07:31→19:42)
[2017-05-01] MEDS: IPRATROPIUM NEB FS 0.5 MG/2.5 ML AMPUL.NEB IH SCH ×2 (07:31→19:42)
[2017-05-01 07:38] VITALS: BP 109/71
[2017-05-01] MEDS: FERROUS SULFATE - FOR SA ONLY 330 MG/7.5 ML UDC GT SCH ×2 (09:34→17:00)
[2017-05-01] MEDS: PROSTAT (PYXIS) 30 ML UDC GT SCH (09:35)
[2017-05-01] MEDS: Z GUARD REMEDY 4 OZ OINT TP SCH ×2 (09:35→20:41)
[2017-05-01] MEDS: MIDODRINE HCL (5MG) 5 MG TABLET GT SCH ×2 (09:35→20:41)
[2017-05-01 19:38] VITALS: BP 111/60
--- NOTE | 2017-05-01 19:52 | NUR ---
ALB NOT GIVEN DUE TO TACHYCARDIA Addendum: 05/01/17 at 1953 by CHIRAG MENDEZ RT Amended: Links added.
[2017-05-01] MEDS: MULTIVIT, IRON, MIN NO. 8, FA 1 TAB GT SCH (20:41)
[2017-05-01] MEDS: NYSTATIN TOP POWDER 15 GM BOTTLE TP SCH (20:41)
[2017-05-01] MEDS: SENNOSIDES 8.6 MG TABLET GT SCH (21:20)
[2017-05-02] MEDS: POLYVINYL ALCOHOL 15 ML BOTTLE EACHEYE SCH ×3 (05:27→17:46)
[2017-05-02] MEDS: BACLOFEN (10 MG) 10 MG TABLET GT SCH ×2 (05:27→17:46)
[2017-05-02] MEDS: PREVACID (NF) 30 MG TAB GT SCH (05:27)
[2017-05-02] MEDS: RENAL NOVASOURCE 1,000 ML BOTTLE GT PRN (05:27)
[2017-05-02] MEDS: ALBUTEROL FS 2.5 MG/0.5 ML VIAL.NEB NEB SCH ×2 (07:24→19:40)
[2017-05-02] MEDS: IPRATROPIUM NEB FS 0.5 MG/2.5 ML AMPUL.NEB IH SCH ×2 (07:24→19:40)
[2017-05-02 08:10] VITALS: BP 137/74
[2017-05-02] MEDS: FERROUS SULFATE - FOR SA ONLY 330 MG/7.5 ML UDC GT SCH ×2 (09:42→17:46)
[2017-05-02] MEDS: NYSTATIN TOP POWDER 15 GM BOTTLE TP SCH ×2 (09:42→21:12)
[2017-05-02] MEDS: MIDODRINE HCL (5MG) 5 MG TABLET GT SCH ×2 (09:42→21:11)
[2017-05-02] MEDS: Z GUARD REMEDY 4 OZ OINT TP SCH ×2 (09:42→21:12)
[2017-05-02] MEDS: PROSTAT (PYXIS) 30 ML UDC GT SCH (09:42)
[2017-05-02] MEDS: ONDANSETRON 4 MG TAB.RAPDIS GT PRN (18:37)
--- NOTE | 2017-05-02 18:37 | NUR ---
Pt noted with episode of vomiting x 1, small amount of formula. Suctioned patient, no aspiration noted. Pt had BM x 2 yesterday. Zofran given via GT PRN as ordered.
[2017-05-02 20:03] VITALS: BP 109/57
[2017-05-02] MEDS: MULTIVIT, IRON, MIN NO. 8, FA 1 TAB GT SCH (21:12)
[2017-05-02] MEDS: SENNOSIDES 8.6 MG TABLET GT SCH (21:12)
[2017-05-03] MEDS: POLYVINYL ALCOHOL 15 ML BOTTLE EACHEYE SCH ×5 (00:35→23:22)
[2017-05-03] MEDS: PREVACID (NF) 30 MG TAB GT SCH (05:50)
[2017-05-03] MEDS: BACLOFEN (10 MG) 10 MG TABLET GT SCH ×2 (05:50→17:15)
[2017-05-03] MEDS: RENAL NOVASOURCE 1,000 ML BOTTLE GT PRN (05:52)
[2017-05-03] MEDS: IPRATROPIUM NEB FS 0.5 MG/2.5 ML AMPUL.NEB IH SCH ×2 (07:26→19:57)
[2017-05-03] MEDS: ALBUTEROL FS 2.5 MG/0.5 ML VIAL.NEB NEB SCH ×2 (07:26→19:57)
[2017-05-03 08:03] VITALS: BP 105/35
[2017-05-03] MEDS: FERROUS SULFATE - FOR SA ONLY 330 MG/7.5 ML UDC GT SCH ×2 (09:39→17:14)
[2017-05-03] MEDS: MIDODRINE HCL (5MG) 5 MG TABLET GT SCH ×2 (09:40→20:59)
[2017-05-03] MEDS: PROSTAT (PYXIS) 30 ML UDC GT SCH (09:41)
--- NOTE | 2017-05-03 10:40 | NUR ---
Received order from NIKI Ashford to DC contact isolation for MRSA left eye. 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 Pt already completed antibiotic treatment and asymptomatic. No drainage noted from pt's eyes. Pt's temp 97.5 F. Addendum: 05/03/17 at 1227 by MIGUELANGEL REEDER RN Suraj Wong.
[2017-05-03] MEDS: Z GUARD REMEDY 4 OZ OINT TP SCH ×2 (11:00→21:00)
[2017-05-03] MEDS: NYSTATIN TOP POWDER 15 GM BOTTLE TP SCH ×2 (11:00→20:59)
[2017-05-03 19:48] VITALS: BP 95/63
[2017-05-03] MEDS: MULTIVIT, IRON, MIN NO. 8, FA 1 TAB GT SCH (20:59)
[2017-05-03] MEDS: SENNOSIDES 8.6 MG TABLET GT SCH (21:00)
[2017-05-04] MEDS: POLYVINYL ALCOHOL 15 ML BOTTLE EACHEYE SCH ×4 (05:20→23:26)
[2017-05-04] MEDS: PREVACID (NF) 30 MG TAB GT SCH (05:20)
[2017-05-04] MEDS: BACLOFEN (10 MG) 10 MG TABLET GT SCH ×2 (05:20→18:06)
[2017-05-04] MEDS: ALBUTEROL FS 2.5 MG/0.5 ML VIAL.NEB NEB SCH ×2 (07:30→19:30)
[2017-05-04] MEDS: IPRATROPIUM NEB FS 0.5 MG/2.5 ML AMPUL.NEB IH SCH ×2 (07:30→19:30)
--- NOTE | 2017-05-04 07:35 | NUR ---
no [facility] meds available
[2017-05-04 08:13] VITALS: BP 103/71
[2017-05-04] MEDS: NYSTATIN TOP POWDER 15 GM BOTTLE TP SCH ×2 (09:00→20:49)
[2017-05-04] MEDS: Z GUARD REMEDY 4 OZ OINT TP SCH ×2 (09:00→20:49)
[2017-05-04] MEDS: PROSTAT (PYXIS) 30 ML UDC GT SCH (09:00)
[2017-05-04] MEDS: MIDODRINE HCL (5MG) 5 MG TABLET GT SCH ×2 (09:00→20:49)
[2017-05-04] MEDS: FERROUS SULFATE - FOR SA ONLY 330 MG/7.5 ML UDC GT SCH ×2 (09:00→17:00)
[2017-05-04 20:03] VITALS: BP 98/49
[2017-05-04] MEDS: MULTIVIT, IRON, MIN NO. 8, FA 1 TAB GT SCH (20:49)
[2017-05-04] MEDS: SENNOSIDES 8.6 MG TABLET GT SCH (21:49)
[2017-05-04] MEDS: RENAL NOVASOURCE 1,000 ML BOTTLE GT PRN (21:56)
[2017-05-05] MEDS: IPRATROPIUM NEB FS 0.5 MG/2.5 ML AMPUL.NEB IH SCH ×2 (01:05→20:08)
[2017-05-05] MEDS: ALBUTEROL FS 2.5 MG/0.5 ML VIAL.NEB NEB SCH ×2 (01:05→20:08)
[2017-05-05] MEDS: POLYVINYL ALCOHOL 15 ML BOTTLE EACHEYE SCH ×3 (05:23→17:24)
[2017-05-05] MEDS: BACLOFEN (10 MG) 10 MG TABLET GT SCH ×2 (05:23→17:24)
[2017-05-05] MEDS: PREVACID (NF) 30 MG TAB GT SCH (05:23)
[2017-05-05 08:21] VITALS: BP 102/48
[2017-05-05] MEDS: FERROUS SULFATE - FOR SA ONLY 330 MG/7.5 ML UDC GT SCH ×2 (09:09→17:23)
[2017-05-05] MEDS: MIDODRINE HCL (5MG) 5 MG TABLET GT SCH ×2 (09:12→20:59)
[2017-05-05] MEDS: NYSTATIN TOP POWDER 15 GM BOTTLE TP SCH ×2 (09:13→20:59)
[2017-05-05] MEDS: PROSTAT (PYXIS) 30 ML UDC GT SCH (09:13)
[2017-05-05] MEDS: Z GUARD REMEDY 4 OZ OINT TP SCH ×2 (09:13→20:59)
[2017-05-05 20:09] VITALS: BP 109/60
[2017-05-05] MEDS: MULTIVIT, IRON, MIN NO. 8, FA 1 TAB GT SCH (20:59)
[2017-05-05] MEDS: SENNOSIDES 8.6 MG TABLET GT SCH (21:00)
[2017-05-06] MEDS: POLYVINYL ALCOHOL 15 ML BOTTLE EACHEYE SCH ×4 (00:05→17:25)
[2017-05-06] MEDS: PREVACID (NF) 30 MG TAB GT SCH (05:36)
[2017-05-06] MEDS: BACLOFEN (10 MG) 10 MG TABLET GT SCH ×2 (05:36→17:26)
[2017-05-06] MEDS: RENAL NOVASOURCE 1,000 ML BOTTLE GT PRN (06:17)
[2017-05-06] MEDS: IPRATROPIUM NEB FS 0.5 MG/2.5 ML AMPUL.NEB IH SCH ×2 (06:48→19:38)
[2017-05-06] MEDS: ALBUTEROL FS 2.5 MG/0.5 ML VIAL.NEB NEB SCH ×2 (06:48→19:38)
[2017-05-06 07:37] VITALS: BP 119/65
[2017-05-06] MEDS: MIDODRINE HCL (5MG) 5 MG TABLET GT SCH ×2 (09:00→21:06)
[2017-05-06] MEDS: PROSTAT (PYXIS) 30 ML UDC GT SCH (09:26)
[2017-05-06] MEDS: NYSTATIN TOP POWDER 15 GM BOTTLE TP SCH ×2 (09:27→21:07)
[2017-05-06] MEDS: FERROUS SULFATE - FOR SA ONLY 330 MG/7.5 ML UDC GT SCH ×2 (09:27→16:13)
[2017-05-06] MEDS: Z GUARD REMEDY 4 OZ OINT TP SCH ×2 (09:28→21:07)
--- NOTE | 2017-05-06 12:00 | NUR ---
Resident noted with redness at the right side of lower abdomen extending to right upper thigh,skin is intact no skin breakdown noticed.Left message to .waiting to call back.continue to monitor.
--- NOTE | 2017-05-06 14:30 | NUR ---
Got a call from ,informed about the residents condition,told that skin is red and warm to touch on the side of right lower abdomen and it extending to right upper thigh.He told that he will come and check the patient .continue to monitor.
--- NOTE | 2017-05-06 20:30 | NUR ---
PT SEEN AND EXAMINED BY GREASE AND TALLOW PUMPER MARCELLA GARG,SHOWED HER THE REDNESS ON THE RIGHT AND LEFT ABDOMEN EXTENDING TO TH THIGH,WARM TO TOUCH,NO SWELLING NOTED.SHE SAID IT'S LOOK LIKE A ALLERGY AND ORDERED ATARAX 25MG VIA GT Q8 HRS FOR ALLERGY X 3DAYS AND EVALUATE.SISTER PAZ NOTIFIED FOR KATRIN AND NEW MEDICATIONS.APPRECIATIVE OF THE CALL.WILL CONTINUE TO MONITOR.
[2017-05-06] MEDS ORDERED: hydrOXYzine PAMOATE 25 MG CAPSULE GT ONE (21:00)
[2017-05-06] MEDS: MULTIVIT, IRON, MIN NO. 8, FA 1 TAB GT SCH (21:06)
[2017-05-06] MEDS: SENNOSIDES 8.6 MG TABLET GT SCH (21:07)
[2017-05-06] MEDS: ACETAMINOPHEN 650 MG/20 ML UDC- FOR SA PATIENTS ONLY GT PRN (21:09)
[2017-05-07] MEDS: POLYVINYL ALCOHOL 15 ML BOTTLE EACHEYE SCH ×4 (00:07→17:34)
[2017-05-07 02:29] VITALS: BP 98/48
[2017-05-07] MEDS ORDERED: hydrOXYzine PAMOATE 25 MG CAPSULE GT SCH (05:00)
[2017-05-07] MEDS: BACLOFEN (10 MG) 10 MG TABLET GT SCH ×2 (05:27→17:34)
[2017-05-07] MEDS: PREVACID (NF) 30 MG TAB GT SCH (05:27)
--- NOTE | 2017-05-07 07:18 | NUR ---
PT NOTED WITH LEFT EYE REDNESS EYE CARE RENDERED.WILL CONTINUE TO MONITOR AND WILL ENDORSE.
[2017-05-07 07:37] VITALS: BP 102/60
[2017-05-07] MEDS: FERROUS SULFATE - FOR SA ONLY 330 MG/7.5 ML UDC GT SCH ×2 (08:08→17:34)
[2017-05-07] MEDS: Z GUARD REMEDY 4 OZ OINT TP SCH ×2 (08:09→21:21)
[2017-05-07] MEDS: NYSTATIN TOP POWDER 15 GM BOTTLE TP SCH ×2 (08:09→21:21)
[2017-05-07] MEDS: PROSTAT (PYXIS) 30 ML UDC GT SCH (08:09)
[2017-05-07] MEDS: MIDODRINE HCL (5MG) 5 MG TABLET GT SCH ×2 (08:09→21:21)
[2017-05-07] MEDS: LACTULOSE 10 G/15 ML UDC (PYXIS) GT PRN (08:10)
[2017-05-07] MEDS: ALBUTEROL FS 2.5 MG/0.5 ML VIAL.NEB NEB SCH ×2 (08:59→19:30)
[2017-05-07] MEDS: IPRATROPIUM NEB FS 0.5 MG/2.5 ML AMPUL.NEB IH SCH ×2 (08:59→19:30)
[2017-05-07] MEDS: RENAL NOVASOURCE 1,000 ML BOTTLE GT PRN (09:35)
[2017-05-07] MEDS: HYDROXYZINE HCL 25 MG GT SCH ×2 (12:56→21:21)
--- NOTE | 2017-05-07 13:13 | NUR ---
LIZANDRO called the office of Dr. Mayes/ Dr. Steward ([address] [place] [address]; ) and spoke with Kristina. SW notified her that resident is in need of an ophthalmology consult however, doctor previously stated that he is unable to follow the resident. Kristina noted that Dr. Mayes is at the office on , Wed, and and will not be able to come and see the resident. LIZANDRO asked if he can call and give his recommendation, which he was able to do the previous time. She stated that she will pass along the message to him to see if it is possible for him to call. Kristina also noted Dr. Hayden is only available in the mornings and is also not available. Informed charge nurse Jamaal. YOJANA Mccullough is attempting to find an alternative sales support coordinator that can follow the resident.
[2017-05-07 20:50] VITALS: BP 108/53
[2017-05-07] MEDS: SENNOSIDES 8.6 MG TABLET GT SCH (21:21)
[2017-05-07] MEDS: MULTIVIT, IRON, MIN NO. 8, FA 1 TAB GT SCH (21:21)
[2017-05-08] MEDS: POLYVINYL ALCOHOL 15 ML BOTTLE EACHEYE SCH ×5 (00:11→23:53)
[2017-05-08] MEDS: HYDROXYZINE HCL 25 MG GT SCH ×3 (05:45→21:13)
[2017-05-08] MEDS: BACLOFEN (10 MG) 10 MG TABLET GT SCH ×2 (06:11→17:11)
[2017-05-08] MEDS: PREVACID (NF) 30 MG TAB GT SCH (06:11)
[2017-05-08 07:35] VITALS: BP 108/60
[2017-05-08] MEDS: IPRATROPIUM NEB FS 0.5 MG/2.5 ML AMPUL.NEB IH SCH ×2 (08:09→19:40)
[2017-05-08] MEDS: ALBUTEROL FS 2.5 MG/0.5 ML VIAL.NEB NEB SCH ×2 (08:09→19:40)
[2017-05-08] MEDS: FERROUS SULFATE - FOR SA ONLY 330 MG/7.5 ML UDC GT SCH ×2 (08:55→17:11)
[2017-05-08] MEDS: MIDODRINE HCL (5MG) 5 MG TABLET GT SCH ×2 (08:55→21:13)
[2017-05-08] MEDS: PROSTAT (PYXIS) 30 ML UDC GT SCH (08:55)
[2017-05-08] MEDS: NYSTATIN TOP POWDER 15 GM BOTTLE TP SCH ×2 (08:55→21:13)
[2017-05-08] MEDS: Z GUARD REMEDY 4 OZ OINT TP SCH ×2 (08:55→21:13)
[2017-05-08] MEDS: BISACODYL SUPP (10 MG) 10 MG/SUPP.RECT SUPP.RECT RC PRN (17:46)
[2017-05-08] MEDS: SENNOSIDES 8.6 MG TABLET GT SCH (21:13)
[2017-05-08] MEDS: MULTIVIT, IRON, MIN NO. 8, FA 1 TAB GT SCH (21:13)
[2017-05-08 22:25] VITALS: BP 96/53
[2017-05-08] MEDS: RENAL NOVASOURCE 1,000 ML BOTTLE GT PRN (23:54)
[2017-05-09] MEDS: RENAL NOVASOURCE 1,000 ML BOTTLE GT PRN (03:39)
[2017-05-09] MEDS: BACLOFEN (10 MG) 10 MG TABLET GT SCH ×2 (05:29→18:04)
[2017-05-09] MEDS: PREVACID (NF) 30 MG TAB GT SCH (05:29)
[2017-05-09] MEDS: POLYVINYL ALCOHOL 15 ML BOTTLE EACHEYE SCH ×3 (05:29→18:04)
[2017-05-09] MEDS: IPRATROPIUM NEB FS 0.5 MG/2.5 ML AMPUL.NEB IH SCH ×2 (08:14→19:58)
[2017-05-09] MEDS: ALBUTEROL FS 2.5 MG/0.5 ML VIAL.NEB NEB SCH ×2 (08:14→19:58)
[2017-05-09 08:45] VITALS: BP 111/69
[2017-05-09] MEDS: MIDODRINE HCL (5MG) 5 MG TABLET GT SCH ×2 (09:00→21:19)
[2017-05-09] MEDS: FERROUS SULFATE - FOR SA ONLY 330 MG/7.5 ML UDC GT SCH ×2 (09:06→18:00)
[2017-05-09] MEDS: PROSTAT (PYXIS) 30 ML UDC GT SCH (09:09)
--- NOTE | 2017-05-09 10:11 | NUR ---
Dr. Dugan notified L eye redness reoccurring, new order given to reculture, she mentioned that ID did not want to treat it. SSD is working on getting an mold sheet cleaner to see the patient.
[2017-05-09] MEDS: Z GUARD REMEDY 4 OZ OINT TP SCH ×2 (11:00→21:20)
[2017-05-09] MEDS: NYSTATIN TOP POWDER 15 GM BOTTLE TP SCH ×2 (11:00→21:19)
--- NOTE | 2017-05-09 17:35 | NUR ---
Spoke and updated Judith of patient's condition including reoccurring redness in the L eye. Dr. Dugan ordered L eye culture. Redness on the thighs still present but subsiding, will refer to NIKI Tenorio in AM if she will reorder Atarax. Endorsed to follow up in AM.
[2017-05-09 19:38] VITALS: BP 102/65
[2017-05-09] MEDS: MULTIVIT, IRON, MIN NO. 8, FA 1 TAB GT SCH (21:19)
[2017-05-09] MEDS: SENNOSIDES 8.6 MG TABLET GT SCH (21:20)
[2017-05-10] MEDS: POLYVINYL ALCOHOL 15 ML BOTTLE EACHEYE SCH ×4 (00:46→17:01)
[2017-05-10] MEDS: PREVACID (NF) 30 MG TAB GT SCH (05:10)
[2017-05-10] MEDS: BACLOFEN (10 MG) 10 MG TABLET GT SCH ×2 (05:10→17:02)
[2017-05-10] MEDS: ALBUTEROL FS 2.5 MG/0.5 ML VIAL.NEB NEB SCH ×2 (07:21→19:53)
[2017-05-10] MEDS: IPRATROPIUM NEB FS 0.5 MG/2.5 ML AMPUL.NEB IH SCH ×2 (07:21→19:53)
[2017-05-10 08:00] VITALS: BP_SYST 182; BP_SYST 97; BP_DIAS 60; BP_DIAS 77
[2017-05-10] MEDS: FERROUS SULFATE - FOR SA ONLY 330 MG/7.5 ML UDC GT SCH ×2 (08:47→17:01)
[2017-05-10] MEDS: MIDODRINE HCL (5MG) 5 MG TABLET GT SCH ×2 (08:48→20:57)
[2017-05-10] MEDS: NYSTATIN TOP POWDER 15 GM BOTTLE TP SCH ×2 (08:48→20:57)
[2017-05-10] MEDS: Z GUARD REMEDY 4 OZ OINT TP SCH ×2 (08:48→20:57)
[2017-05-10] MEDS: PROSTAT (PYXIS) 30 ML UDC GT SCH (08:48)
--- NOTE | 2017-05-10 09:15 | NUR ---
Followed up with social group worker if there is already an posting clerk who can see the pt. LIZANDRO Martinez said she will talk about it with YOJANA Mccullough again.
--- NOTE | 2017-05-10 09:45 | NUR ---
LIZANDRO spoke to YOJANA Mccullough and informed him of the difficulty in finding an recessing machine operator. He stated that he will talk to Makeda.
[2017-05-10 13:57] VITALS: BP 97/60
--- NOTE | 2017-05-10 15:45 | NUR ---
Dr. Dugan came to see pt. Relayed eye culture result to her which shows slight growth of Staphylococcus aureus. She said she will not treat it anymore. She examined pt's eyes. Left eye is red, no drainage.
[2017-05-10 19:45] VITALS: BP 104/58
[2017-05-10] MEDS: MULTIVIT, IRON, MIN NO. 8, FA 1 TAB GT SCH (20:57)
[2017-05-10] MEDS: SENNOSIDES 8.6 MG TABLET GT SCH (21:55)
[2017-05-11] MEDS: POLYVINYL ALCOHOL 15 ML BOTTLE EACHEYE SCH ×4 (00:54→17:57)
[2017-05-11] MEDS: RENAL NOVASOURCE 1,000 ML BOTTLE GT PRN (04:53)
[2017-05-11] MEDS: PREVACID (NF) 30 MG TAB GT SCH (05:55)
[2017-05-11] MEDS: BACLOFEN (10 MG) 10 MG TABLET GT SCH ×2 (05:55→17:57)
[2017-05-11] MEDS: IPRATROPIUM NEB FS 0.5 MG/2.5 ML AMPUL.NEB IH SCH ×3 (07:30→19:52)
[2017-05-11] MEDS: ALBUTEROL FS 2.5 MG/0.5 ML VIAL.NEB NEB SCH ×3 (07:30→19:52)
[2017-05-11 07:59] VITALS: BP 109/62
[2017-05-11] MEDS: FERROUS SULFATE - FOR SA ONLY 330 MG/7.5 ML UDC GT SCH ×2 (09:04→17:56)
[2017-05-11] MEDS: MIDODRINE HCL (5MG) 5 MG TABLET GT SCH ×2 (09:08→21:02)
[2017-05-11] MEDS: PROSTAT (PYXIS) 30 ML UDC GT SCH (09:08)
--- NOTE | 2017-05-11 10:25 | NUR ---
Seen by Dr. Macario. Notified him that pt's heart rate is in the 120s, T 99.[address] Macario ordered NS at 100 mL/hr IV x 1 liter and CBC. Notified Judith.
--- NOTE | 2017-05-11 10:45 | NUR ---
Started peripheral IV line on right hand with good blood return. Started IV NS at 100 mL/hr.
[2017-05-11] MEDS: Z GUARD REMEDY 4 OZ OINT TP SCH ×2 (11:00→21:06)
[2017-05-11] MEDS: NYSTATIN TOP POWDER 15 GM BOTTLE TP SCH ×2 (11:00→21:06)
[2017-05-11 12:31] LABS: BASOPHILS % (AUTO) 0.4 % (0.0-2.0); EOSINOPHILS # (AUTO) 0.1 /CMM (0.0-0.7); LYMPHOCYTES # (AUTO) 4.6 /CMM (0.8-4.8); LYMPHOCYTES % (AUTO) 37.2 % (20.0-44.0); MEAN CORPUSCULAR HGB CONC 30 g/dl (31.0-36.0); MEAN CORPUSCULAR VOLUME 79 fL (82-100); MONOCYTES % (AUTO) 8.1 % (2.0-12.0); NEUTROPHILS # (AUTO) 6.6 /CMM (1.8-8.9); NEUTROPHILS % (AUTO) 53.3 % (43.0-81.0); PLATELET COUNT (AUTO) 406 /CMM (150-450); RDW COEFFICIENT OF VARIATION 20.7 (11.5-15.0); RED BLOOD CELL COUNT(AUTO) 4.29 MIL/uL (4.0-5.2); WHITE BLOOD COUNT (AUTO) 12.3 K/uL (4.3-11.0)
[2017-05-11 12:48] LABS: HEMATOCRIT 34 % (33-45); HEMOGLOBIN 10.2 g/dL (11.5-14.8); MEAN CORPUSCULAR HEMOGLOBIN 24 PG (26.0-33.0)
[2017-05-11 12:54] LABS: LYMPHOCYTES % (MANUAL) 40 % (16-48); MONOCYTES % (MANUAL) 3 % (0-11.0); NEUTROPHILS % (MANUAL) 57 (42-76)
--- NOTE | 2017-05-11 13:18 | NUR ---
retrieved resident's belongings (socks, hair brush, and headbands) and placed into resident's closet. Belongings were accidently sent with another resident. Informed charge nurse.
--- NOTE | 2017-05-11 14:37 | NUR ---
Judith informed of IDT meeting for this Sunday May 14, 2017 from 12:30pm-1:30pm. She stated that she will not be able to attend in person but would like to attend by phone. SW to call Judith by phone during the meeting.
--- NOTE | 2017-05-11 14:50 | NUR ---
Relayed CBC result to Dr. Macario. No new order.
[2017-05-11] MEDS: ACETAMINOPHEN 650 MG/20 ML UDC- FOR SA PATIENTS ONLY GT PRN (18:00)
[2017-05-11] MEDS ORDERED: IV NS 0.9% 1,000 ML IV PRN (19:00)
[2017-05-11] MEDS: MULTIVIT, IRON, MIN NO. 8, FA 1 TAB GT SCH (21:02)
[2017-05-11] MEDS: SENNOSIDES 8.6 MG TABLET GT SCH (21:08)
[2017-05-11 22:30] VITALS: BP 132/82
[2017-05-12] MEDS: POLYVINYL ALCOHOL 15 ML BOTTLE EACHEYE SCH ×4 (00:30→18:15)
[2017-05-12] MEDS: BACLOFEN (10 MG) 10 MG TABLET GT SCH ×2 (06:04→18:15)
[2017-05-12] MEDS: PREVACID (NF) 30 MG TAB GT SCH (06:04)
[2017-05-12 07:39] VITALS: BP 104/56
[2017-05-12] MEDS: IPRATROPIUM NEB FS 0.5 MG/2.5 ML AMPUL.NEB IH SCH ×2 (07:49→20:28)
[2017-05-12] MEDS: ALBUTEROL FS 2.5 MG/0.5 ML VIAL.NEB NEB SCH ×2 (07:49→20:28)
[2017-05-12] MEDS: FERROUS SULFATE - FOR SA ONLY 330 MG/7.5 ML UDC GT SCH ×2 (08:27→17:56)
[2017-05-12] MEDS: MIDODRINE HCL (5MG) 5 MG TABLET GT SCH ×2 (08:29→21:00)
[2017-05-12] MEDS: PROSTAT (PYXIS) 30 ML UDC GT SCH (08:30)
[2017-05-12] MEDS: NYSTATIN TOP POWDER 15 GM BOTTLE TP SCH ×2 (08:31→21:00)
[2017-05-12] MEDS: Z GUARD REMEDY 4 OZ OINT TP SCH ×2 (08:31→21:00)
--- NOTE | 2017-05-12 15:09 | NUR ---
Patient's abdomen distended. Verified GT placement through auscultation. Had large bowel movement once during the shift. Paged Dr. Alfaro waiting for call back.
[2017-05-12] MEDS ORDERED: DIATR MEGLU/DIATRIZOATE SODIUM 30 ML BOTTLE (GASTROGRAPHIN) ONE (16:18)
[2017-05-12] MEDS: LACTULOSE 10 G/15 ML UDC (PYXIS) GT PRN (18:21)
--- NOTE | 2017-05-12 18:50 | NUR ---
REceived an order from Dr. Macario for KUB for abdominal distention. KUB result came back with retained stool in rectum . Lactulose given by primary nurse. Addendum: 05/12/17 at 1909 by RADHA RHOADES RN left a voice message to Sister Judith
[2017-05-12 20:07] VITALS: BP 97/71
[2017-05-12] MEDS: SENNOSIDES 8.6 MG TABLET GT SCH (21:00)
[2017-05-12] MEDS: MULTIVIT, IRON, MIN NO. 8, FA 1 TAB GT SCH (21:00)
[2017-05-12] MEDS: RENAL NOVASOURCE 1,000 ML BOTTLE GT PRN (21:07)
[2017-05-13] MEDS: POLYVINYL ALCOHOL 15 ML BOTTLE EACHEYE SCH ×4 (00:19→17:37)
[2017-05-13] MEDS: BACLOFEN (10 MG) 10 MG TABLET GT SCH ×2 (05:10→17:37)
[2017-05-13] MEDS: PREVACID (NF) 30 MG TAB GT SCH (05:10)
--- NOTE | 2017-05-13 06:44 | NUR ---
Judith called last night and aware of new order of KUB and results.Pt had 3x loose bowel movement moderate amount.Pt was given Lactulose yesterday.Will continue to monitor.
[2017-05-13] MEDS: ALBUTEROL FS 2.5 MG/0.5 ML VIAL.NEB NEB SCH ×2 (07:28→20:00)
[2017-05-13] MEDS: IPRATROPIUM NEB FS 0.5 MG/2.5 ML AMPUL.NEB IH SCH ×2 (07:28→20:00)
[2017-05-13 07:36] VITALS: BP 102/69
[2017-05-13] MEDS: FERROUS SULFATE - FOR SA ONLY 330 MG/7.5 ML UDC GT SCH ×2 (09:31→17:37)
[2017-05-13] MEDS: Z GUARD REMEDY 4 OZ OINT TP SCH ×2 (09:31→21:40)
[2017-05-13] MEDS: PROSTAT (PYXIS) 30 ML UDC GT SCH (09:31)
[2017-05-13] MEDS: MIDODRINE HCL (5MG) 5 MG TABLET GT SCH ×2 (09:31→21:39)
[2017-05-13] MEDS: NYSTATIN TOP POWDER 15 GM BOTTLE TP SCH ×2 (09:31→21:40)
--- NOTE | 2017-05-13 14:30 | NUR ---
Seen by NIKI Pabon. Pt's abdomen still distended. Pt was given Dulcolax suppository yesterday and had 3 bowel movements. NIKI Pabon ordered to give Lactulose 30 mL via GT daily for constipation, hold for loose stools, continue Lactulose 30 mL via GT q 8 hours. Notified
--- NOTE | 2017-05-13 15:20 | NUR ---
Followed up with social welfare clerk Michelle regarding ophthalmology consult. She said she already spoke with YOJANA Mccullough about it and YOJANA Mccullough told her that he will get an mortgage operations manager to have privileges at [facility].
--- NOTE | 2017-05-13 18:00 | NUR ---
NIKI Ashford said to place pt back on contact isolation for MRSA left eye and have environmental professional see the pt. Addendum: 05/13/17 at 1851 by MIGUELANGEL REEDER RN Pt's left eye is red but no drainage, no swelling noted.
[2017-05-13 19:45] VITALS: BP 100/73
[2017-05-13] MEDS: MULTIVIT, IRON, MIN NO. 8, FA 1 TAB GT SCH (21:39)
[2017-05-13] MEDS: SENNOSIDES 8.6 MG TABLET GT SCH (21:40)
[2017-05-13] MEDS: RENAL NOVASOURCE 1,000 ML BOTTLE GT PRN (22:02)
[2017-05-14] MEDS: POLYVINYL ALCOHOL 15 ML BOTTLE EACHEYE SCH ×4 (00:19→17:29)
[2017-05-14] MEDS: BACLOFEN (10 MG) 10 MG TABLET GT SCH ×2 (05:08→17:29)
[2017-05-14] MEDS: PREVACID (NF) 30 MG TAB GT SCH (05:08)
--- NOTE | 2017-05-14 06:55 | NUR ---
Pt still with left eye redness,no drainage noted.
[2017-05-14] MEDS: IPRATROPIUM NEB FS 0.5 MG/2.5 ML AMPUL.NEB IH SCH ×2 (07:57→19:52)
[2017-05-14] MEDS: ALBUTEROL FS 2.5 MG/0.5 ML VIAL.NEB NEB SCH ×2 (07:57→19:52)
[2017-05-14 08:00] VITALS: BP 94/49
[2017-05-14] MEDS: FERROUS SULFATE - FOR SA ONLY 330 MG/7.5 ML UDC GT SCH ×2 (09:12→17:29)
[2017-05-14] MEDS: LACTULOSE 20 G/30 ML UDC GT SCH (09:12)
[2017-05-14] MEDS: MIDODRINE HCL (5MG) 5 MG TABLET GT SCH ×2 (09:13→21:59)
[2017-05-14] MEDS: Z GUARD REMEDY 4 OZ OINT TP SCH ×2 (09:13→21:50)
[2017-05-14] MEDS: PROSTAT (PYXIS) 30 ML UDC GT SCH (09:13)
[2017-05-14] MEDS: NYSTATIN TOP POWDER 15 GM BOTTLE TP SCH ×2 (09:13→22:00)
--- NOTE | 2017-05-14 14:00 | NUR ---
IDT meeting held, family unable to attend and did not potato picker the phone for phone conference. IDT team reviewed current orders, medications, treatments and recent labs. It was mentioned in the meeting that administration is working on getting an shuttle bus driver to evaluate patient's eye due to on and off redness. Currently on contact isolation for MRSA of the L eye.
[2017-05-14 19:47] VITALS: BP 98/55
[2017-05-14] MEDS: MULTIVIT, IRON, MIN NO. 8, FA 1 TAB GT SCH (21:59)
[2017-05-14] MEDS: SENNOSIDES 8.6 MG TABLET GT SCH (22:00)
[2017-05-14] MEDS: RENAL NOVASOURCE 1,000 ML BOTTLE GT PRN (22:11)
[2017-05-15] MEDS: POLYVINYL ALCOHOL 15 ML BOTTLE EACHEYE SCH ×4 (00:11→17:51)
[2017-05-15] MEDS: BACLOFEN (10 MG) 10 MG TABLET GT SCH ×2 (05:21→17:51)
[2017-05-15] MEDS: PREVACID (NF) 30 MG TAB GT SCH (05:21)
[2017-05-15] MEDS: ALBUTEROL FS 2.5 MG/0.5 ML VIAL.NEB NEB SCH ×2 (07:07→19:39)
[2017-05-15] MEDS: IPRATROPIUM NEB FS 0.5 MG/2.5 ML AMPUL.NEB IH SCH ×2 (07:07→19:39)
[2017-05-15 07:50] VITALS: BP 94/55
[2017-05-15] MEDS: LACTULOSE 20 G/30 ML UDC GT SCH (09:39)
[2017-05-15] MEDS: FERROUS SULFATE - FOR SA ONLY 330 MG/7.5 ML UDC GT SCH ×2 (09:39→17:51)
[2017-05-15] MEDS: PROSTAT (PYXIS) 30 ML UDC GT SCH (09:40)
[2017-05-15] MEDS: NYSTATIN TOP POWDER 15 GM BOTTLE TP SCH (09:40)
[2017-05-15] MEDS: Z GUARD REMEDY 4 OZ OINT TP SCH ×2 (09:40→20:54)
[2017-05-15] MEDS: RENAL NOVASOURCE 1,000 ML BOTTLE GT PRN (09:40)
[2017-05-15] MEDS: MIDODRINE HCL (5MG) 5 MG TABLET GT SCH ×2 (09:40→20:53)
--- NOTE | 2017-05-15 18:40 | NUR ---
Patient noted to be warm to touch, checked temp 100.9. Charge nurse notified, order obtained from NIKI Ashford to collect urine for culture; CBC, BMP and CXR in AM. Cooling measures started. Charge nurse called and notified pt's mother Sabrina of noted elevated temp and orders.
[2017-05-15] MEDS: MULTIVIT, IRON, MIN NO. 8, FA 1 TAB GT SCH (20:53)
--- NOTE | 2017-05-15 21:00 | NUR ---
Sister Falguni called. Charge nurse informed her of the situation that her sister had low grade fever 100.8F and that the MECHANICAL RELIABILITY ENGINEER Makeda already ordered CBC, BMP and chest xray in the morning. she stated ok.
[2017-05-15] MEDS: SENNOSIDES 8.6 MG TABLET GT SCH (22:34)
[2017-05-16] MEDS: POLYVINYL ALCOHOL 15 ML BOTTLE EACHEYE SCH ×5 (00:50→23:50)
[2017-05-16] MEDS: PREVACID (NF) 30 MG TAB GT SCH (05:14)
[2017-05-16] MEDS: BACLOFEN (10 MG) 10 MG TABLET GT SCH ×2 (05:20→17:56)
[2017-05-16 07:37] LABS: BASOPHILS % (AUTO) 0.1 % (0.0-2.0); EOSINOPHILS % (AUTO) 0.1 % (0.0-6.0); HEMATOCRIT 29 % (33-45); HEMOGLOBIN 8.9 g/dL (11.5-14.8); LYMPHOCYTES # (AUTO) 2.5 /CMM (0.8-4.8); LYMPHOCYTES % (AUTO) 14.3 % (20.0-44.0); MEAN CORPUSCULAR HEMOGLOBIN 25 PG (26.0-33.0); MEAN CORPUSCULAR HGB CONC 31 g/dl (31.0-36.0); MEAN CORPUSCULAR VOLUME 79 fL (82-100); MONOCYTES # (AUTO) 0.5 /CMM (0.1-1.30); NEUTROPHILS # (AUTO) 14.1 /CMM (1.8-8.9); NEUTROPHILS % (AUTO) 82.5 % (43.0-81.0); PLATELET COUNT (AUTO) 331 /CMM (150-450); RDW COEFFICIENT OF VARIATION 20.5 (11.5-15.0); RED BLOOD CELL COUNT(AUTO) 3.65 MIL/uL (4.0-5.2); WHITE BLOOD COUNT (AUTO) 17.1 K/uL (4.3-11.0)
[2017-05-16 07:51] LABS: CALCIUM, SERUM 10.2 mg/dL (8.5-10.1); CREATININE 0.8 mg/dL (0.6-1.3)
[2017-05-16 08:00] VITALS: BP 112/70
[2017-05-16 08:10] LABS: POTASSIUM 2.7 mmol/L (3.5-5.1)
[2017-05-16] MEDS: ALBUTEROL FS 2.5 MG/0.5 ML VIAL.NEB NEB SCH ×2 (08:19→20:10)
[2017-05-16] MEDS: IPRATROPIUM NEB FS 0.5 MG/2.5 ML AMPUL.NEB IH SCH ×2 (08:19→20:10)
--- NOTE | 2017-05-16 08:26 | NUR ---
Received a call from Lab stating patient's Potassium 2.7., WBC 17.1. Left a meesage to Dr. Magaly roe for Dr. Alfaro through a answering service. Waiting for call back.
--- NOTE | 2017-05-16 08:52 | NUR ---
Dr. Penn called back informed him the lab reports and patients condition. He said he will come to see the patient. NNO given at this time.
[2017-05-16] MEDS: LACTULOSE 20 G/30 ML UDC GT SCH (09:41)
[2017-05-16] MEDS: FERROUS SULFATE - FOR SA ONLY 330 MG/7.5 ML UDC GT SCH ×2 (09:41→17:55)
[2017-05-16] MEDS: Z GUARD REMEDY 4 OZ OINT TP SCH ×2 (09:42→20:50)
[2017-05-16] MEDS: MIDODRINE HCL (5MG) 5 MG TABLET GT SCH ×2 (09:42→20:49)
[2017-05-16] MEDS: PROSTAT (PYXIS) 30 ML UDC GT SCH (09:42)
--- NOTE | 2017-05-16 10:42 | NUR ---
Dr. Penn gave an order to give KCL 40 meq x2 dose , CBC, BMP, Chest X-ray, sputum cx, and urine cx.
[2017-05-16] MEDS: POTASSIUM CHLORIDE 20 MEQ POWDER PACKET GT SCH ×2 (12:00→17:55)
--- NOTE | 2017-05-16 16:56 | NUR ---
RN Notes Mother Sabrina notified all the recent labs, chest X-report and made aware about patients recent conditions. Also made aware about new orders. Patient agreed and thanked the creative services writer. Mother also had a concerned about her weight gain status. She asked if we can reduce the rate of feeding because she never been that large. Informed the mother we will forward her concerned to the electrocardiograph repairer and doctor and will notify her what the say. Will endorse to next shift RN
[2017-05-16 20:10] VITALS: BP 147/78
[2017-05-16] MEDS: MULTIVIT, IRON, MIN NO. 8, FA 1 TAB GT SCH (20:49)
[2017-05-16] MEDS: SENNOSIDES 8.6 MG TABLET GT SCH (21:59)
[2017-05-17] MEDS: PREVACID (NF) 30 MG TAB GT SCH (05:19)
[2017-05-17] MEDS: BACLOFEN (10 MG) 10 MG TABLET GT SCH ×2 (05:19→18:50)
[2017-05-17] MEDS: POLYVINYL ALCOHOL 15 ML BOTTLE EACHEYE SCH ×3 (05:19→18:50)
[2017-05-17] MEDS: IPRATROPIUM NEB FS 0.5 MG/2.5 ML AMPUL.NEB IH SCH ×2 (07:36→20:15)
[2017-05-17] MEDS: ALBUTEROL FS 2.5 MG/0.5 ML VIAL.NEB NEB SCH ×2 (07:36→20:15)
[2017-05-17 07:53] LABS: LYMPHOCYTES # (AUTO) 2.2 /CMM (0.8-4.8); NEUTROPHILS # (AUTO) 10.1 /CMM (1.8-8.9); RDW COEFFICIENT OF VARIATION 20.8 (11.5-15.0)
[2017-05-17 08:02] LABS: BILIRUBIN,TOTAL 0.3 mg/dL (0.2-1.0); CALCIUM, SERUM 10.3 mg/dL (8.5-10.1); CREATININE 0.6 mg/dL (0.6-1.3); MAGNESIUM 2.4 mg/dL (1.8-2.4); PHOSPHORUS 3.4 mg/dL (2.5-4.9); POTASSIUM 3.5 mmol/L (3.5-5.1); TOTAL PROTEIN, SERUM 9.2 g/dL (6.4-8.2)
[2017-05-17 08:07] VITALS: BP 82/65
[2017-05-17 08:32] LABS: EOSINOPHILS # (AUTO) 0.2 /CMM (0.0-0.7); EOSINOPHILS % (AUTO) 1.8 % (0.0-6.0); HEMATOCRIT 28 % (33-45); HEMOGLOBIN 8.6 g/dL (11.5-14.8); LYMPHOCYTES % (AUTO) 16.7 % (20.0-44.0); MEAN CORPUSCULAR HEMOGLOBIN 24 PG (26.0-33.0); MEAN CORPUSCULAR HGB CONC 30 g/dl (31.0-36.0); MEAN CORPUSCULAR VOLUME 79 fL (82-100); MONOCYTES # (AUTO) 0.7 /CMM (0.1-1.30); MONOCYTES % (AUTO) 5.2 % (2.0-12.0); NEUTROPHILS % (AUTO) 76.3 % (43.0-81.0); PLATELET COUNT (AUTO) 291 /CMM (150-450); WHITE BLOOD COUNT (AUTO) 13.3 K/uL (4.3-11.0)
--- NOTE | 2017-05-17 08:35 | NUR ---
Notified flight hostess Amelia that mother is concerned about pt's weight. Aemlia said that pt gained weight but weight has been stable and pt is only getting 30 mL/hr of Novasource renal.
[2017-05-17] MEDS: LACTULOSE 20 G/30 ML UDC GT SCH (09:54)
[2017-05-17] MEDS: MIDODRINE HCL (5MG) 5 MG TABLET GT SCH ×2 (09:55→21:40)
[2017-05-17] MEDS: FERROUS SULFATE - FOR SA ONLY 330 MG/7.5 ML UDC GT SCH ×2 (09:55→17:00)
[2017-05-17] MEDS: Z GUARD REMEDY 4 OZ OINT TP SCH ×2 (09:55→21:22)
[2017-05-17] MEDS: PROSTAT (PYXIS) 30 ML UDC GT SCH (09:55)
[2017-05-17] MEDS: ONDANSETRON 4 MG TAB.RAPDIS GT PRN ×2 (11:04→12:57)
--- NOTE | 2017-05-17 11:07 | NUR ---
Pt was seen by Dr. Dugan. She said she will look at the pt's lab results. Pt currently on contact isolation for MRSA left eye. Dr. Dugan said she will document that the pt's MRSA on the eyes is colonized.
--- NOTE | 2017-05-17 11:12 | NUR ---
Dr. Dugan called and said she saw the lab results. She ordered Levaquin 750 mg IV daily for 7 days for gram negative rods in the sputum. Addendum: 05/17/17 at 1227 by MIGUELANGEL REEDER RN Dr. Dugan said that Dr. Light wrote in his notes to give Vancomycin and Merrem, but she wants the pt on Levaquin instead.
--- NOTE | 2017-05-17 11:55 | NUR ---
Dr. Dugan ordered to DC contact isolation for MRSA left eye. 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
[2017-05-17] MEDS: LEVOFLOXACIN 750 MG /D5W 150ML 750 MG in PREMIX 1 EA IV SCH (13:00)
--- NOTE | 2017-05-17 15:45 | NUR ---
Called pt's sister Judith and notified her that pt is on Levaquin IV for 7 days for positive sputum culture. Also notified her that contact isolation for MRSA eyes was DC'd. Judith appreciated call.
[2017-05-17 20:42] VITALS: BP 116/72
[2017-05-17] MEDS: MULTIVIT, IRON, MIN NO. 8, FA 1 TAB GT SCH (21:22)
[2017-05-17] MEDS: SENNOSIDES 8.6 MG TABLET GT SCH (21:22)
[2017-05-17] MEDS: RENAL NOVASOURCE 1,000 ML BOTTLE GT PRN (21:39)
[2017-05-18] MEDS: POLYVINYL ALCOHOL 15 ML BOTTLE EACHEYE SCH ×4 (00:26→17:58)
[2017-05-18] MEDS: BACLOFEN (10 MG) 10 MG TABLET GT SCH ×2 (05:50→17:58)
[2017-05-18] MEDS: PREVACID (NF) 30 MG TAB GT SCH (05:50)
[2017-05-18] MEDS: ALBUTEROL FS 2.5 MG/0.5 ML VIAL.NEB NEB SCH ×2 (07:33→19:52)
[2017-05-18] MEDS: IPRATROPIUM NEB FS 0.5 MG/2.5 ML AMPUL.NEB IH SCH ×2 (07:33→19:52)
[2017-05-18 07:43] VITALS: BP 111/71
[2017-05-18] MEDS: LACTULOSE 20 G/30 ML UDC GT SCH (09:00)
[2017-05-18] MEDS: Z GUARD REMEDY 4 OZ OINT TP SCH ×2 (09:00→20:50)
[2017-05-18] MEDS: PROSTAT (PYXIS) 30 ML UDC GT SCH (09:00)
[2017-05-18] MEDS: MIDODRINE HCL (5MG) 5 MG TABLET GT SCH ×2 (09:00→20:50)
[2017-05-18] MEDS: FERROUS SULFATE - FOR SA ONLY 330 MG/7.5 ML UDC GT SCH ×2 (09:00→16:53)
--- NOTE | 2017-05-18 11:25 | NUR ---
Pt's urine culture showed E coli, sensitive to Levofloxacin. Pt started on Levofloxacin yesterday.
[2017-05-18] MEDS: LEVOFLOXACIN 750 MG /D5W 150ML 750 MG in PREMIX 1 EA IV SCH (12:05)
[2017-05-18 20:04] VITALS: BP 104/71
[2017-05-18] MEDS: MULTIVIT, IRON, MIN NO. 8, FA 1 TAB GT SCH (20:50)
[2017-05-18] MEDS: SENNOSIDES 8.6 MG TABLET GT SCH (22:37)
[2017-05-19] MEDS: POLYVINYL ALCOHOL 15 ML BOTTLE EACHEYE SCH ×4 (00:35→18:17)
[2017-05-19] MEDS: PREVACID (NF) 30 MG TAB GT SCH (06:09)
[2017-05-19] MEDS: BACLOFEN (10 MG) 10 MG TABLET GT SCH ×2 (06:09→18:17)
[2017-05-19] MEDS: ALBUTEROL FS 2.5 MG/0.5 ML VIAL.NEB NEB SCH ×2 (07:24→19:30)
[2017-05-19] MEDS: IPRATROPIUM NEB FS 0.5 MG/2.5 ML AMPUL.NEB IH SCH ×2 (07:24→20:04)
[2017-05-19 08:13] VITALS: BP 95/51
[2017-05-19] MEDS: PROSTAT (PYXIS) 30 ML UDC GT SCH (09:21)
[2017-05-19] MEDS: FERROUS SULFATE - FOR SA ONLY 330 MG/7.5 ML UDC GT SCH ×2 (09:21→16:06)
[2017-05-19] MEDS: MIDODRINE HCL (5MG) 5 MG TABLET GT SCH ×3 (09:21→21:05)
[2017-05-19] MEDS: Z GUARD REMEDY 4 OZ OINT TP SCH ×3 (09:21→21:05)
[2017-05-19] MEDS: LACTULOSE 20 G/30 ML UDC GT SCH (09:21)
[2017-05-19] MEDS: LEVOFLOXACIN 750 MG /D5W 150ML 750 MG in PREMIX 1 EA IV SCH (13:00)
[2017-05-19] MEDS: ACETAMINOPHEN 650 MG/20 ML UDC- FOR SA PATIENTS ONLY GT PRN (16:17)
--- NOTE | 2017-05-19 16:30 | NUR ---
Noted patient with episode of hyperventilation leading to SOB, RT and RN mechanical maintenance supervisor notified. Kept clean and comfortable, acetaminophen give as ordered. Noted with very productive white secretions. Suctioned as needed. V/S 166/74 HR127 R. 36-40 T. 99.3. Oxygen saturation by pulse oximeter is 96 percent . On cooling measures. IV site on left hand intact. HOB elevated. Aspiration precaution maintained.
--- NOTE | 2017-05-19 16:51 | NUR ---
Dr. Macario notified of resident's episode of SOB, VS at that time 136/99, HR 150-170, RR 36-40, O2 sat 97% on CA at 28% Fi02. Currently V/S slowly going back to her baseline, 119/71, HR 130, 99%. New order given to do CXR, CBC and to place patient on ventilator if another episode of SOB occurs with the following vent setting: AC 12, TV 500, Peep 5 F102 50%. Spoke with Sabrina, resident's mother regarding the change in condition. she stated "I really did not want her to go back to the machine but if she needed it. it's OK". Appreciated the call.
[2017-05-19 17:18] LABS: BASOPHILS % (AUTO) 0.1 % (0.0-2.0); EOSINOPHILS # (AUTO) 0.2 /CMM (0.0-0.7); EOSINOPHILS % (AUTO) 2.4 % (0.0-6.0); HEMATOCRIT 29 % (33-45); HEMOGLOBIN 8.8 g/dL (11.5-14.8); LYMPHOCYTES # (AUTO) 1.2 /CMM (0.8-4.8); LYMPHOCYTES % (AUTO) 14.3 % (20.0-44.0); MEAN CORPUSCULAR HEMOGLOBIN 24 PG (26.0-33.0); MEAN CORPUSCULAR HGB CONC 30 g/dl (31.0-36.0); MEAN CORPUSCULAR VOLUME 79 fL (82-100); MONOCYTES # (AUTO) 0.3 /CMM (0.1-1.30); MONOCYTES % (AUTO) 3.7 % (2.0-12.0); NEUTROPHILS # (AUTO) 6.5 /CMM (1.8-8.9); NEUTROPHILS % (AUTO) 79.5 % (43.0-81.0); PLATELET COUNT (AUTO) 324 /CMM (150-450); RDW COEFFICIENT OF VARIATION 20.4 (11.5-15.0); RED BLOOD CELL COUNT(AUTO) 3.73 MIL/uL (4.0-5.2); WHITE BLOOD COUNT (AUTO) 8.1 K/uL (4.3-11.0)
[2017-05-19] MEDS: RENAL NOVASOURCE 1,000 ML BOTTLE GT PRN (18:17)
[2017-05-19 18:30] VITALS: BP 121/64
[2017-05-19 18:44] LABS: ABG BASE EXCESS 1.9 mmol/L; ABG OXYGEN SATURATION 96.2 % (92.0-98.5); ABG PCO2 39.7 mmHg (35.0-45.0); ABG PH 7.437 (7.350-7.450); ABG PO2 84.6 mmHg (75.0-100.0); AaDO2 68.2 mmHg; COHb 0.3 % (0.5-1.5); MetHb 0.4 % (0.0-1.5); O2Hb 95.5 % (94.0-97.0); SITE, ABG Right Radial; VENT MODE, BG COOL AERO 28%
--- NOTE | 2017-05-19 18:55 | NUR ---
Reported to Dr. Macario resident with another episode of hyperventilation lasting about 10 min. Now she is calmer at this time breathing regularly at 25, V/S 121/64, 97, 132. ABG was done and reported to MD, with new order to do LE Doppler stat. Endorsed to incoming shift to notify MD and family of the result.
--- NOTE | 2017-05-19 20:04 | NUR ---
PLACED PT ON VENT AC 12, 500,50% PEEP OF 5 PER MD'S ORDER. ALARM WORKING AND AUDIBLE, TERMINAL WORKER CUFF CHECKED, SUCTIONED SMALL AMOUNT OF WHITE THIN SECRETIONS. BILATERAL BS NOTED. BREATHING TX GIVEN ORDERED. NO ADVERSE REACTION NOTED. AMBU BAG AT BEDSIDE, WILL CONTINUE TO MONITOR THE PATIENT.
--- NOTE | 2017-05-19 20:30 | NUR ---
Pt with episodes of hyperventilating and SOB,RT notified and put pt on ventilator with prescribed settings as order by MD.Kept pt comfortable will continue to monitor.
[2017-05-19] MEDS: MULTIVIT, IRON, MIN NO. 8, FA 1 TAB GT SCH ×2 (21:00→21:05)
[2017-05-19] MEDS: SENNOSIDES 8.6 MG TABLET GT SCH ×2 (21:05→22:55)
--- NOTE | 2017-05-19 21:30 | NUR ---
Pt calm now,No SOB noted.Will continue to monitor.
[2017-05-20] MEDS: POLYVINYL ALCOHOL 15 ML BOTTLE EACHEYE SCH ×4 (00:13→17:48)
[2017-05-20] MEDS: ACETAMINOPHEN 650 MG/20 ML UDC- FOR SA PATIENTS ONLY GT PRN (00:14)
[2017-05-20] MEDS: LACTULOSE 10 G/15 ML UDC (PYXIS) GT PRN (00:30)
[2017-05-20] MEDS: PREVACID (NF) 30 MG TAB GT SCH (05:53)
[2017-05-20] MEDS: BACLOFEN (10 MG) 10 MG TABLET GT SCH ×2 (05:53→17:48)
[2017-05-20] MEDS: BISACODYL SUPP (10 MG) 10 MG/SUPP.RECT SUPP.RECT RC PRN (06:23)
--- NOTE | 2017-05-20 06:33 | NUR ---
Pt still with low grade temp of 99.9 ,cooling measures provided.On ventilator and tolerated the settings.Kept clean and comfortable.Will continue to monitor and will endorse.
--- NOTE | 2017-05-20 06:57 | NUR ---
Pt sister Judith notified regarding KATRIN ,that pt was put in ventilator d/t to SOB and Hyperventilation.She said maybe the antibiotic her sister getting is the one causing the distress and she want us to look at that,told her ,will let MD knows about her concerned.And will call her if any changes.Appreciative of the call.
[2017-05-20] MEDS: ALBUTEROL FS 2.5 MG/0.5 ML VIAL.NEB NEB SCH ×2 (07:30→19:39)
[2017-05-20 07:31] VITALS: BP 121/94
[2017-05-20] MEDS: IPRATROPIUM NEB FS 0.5 MG/2.5 ML AMPUL.NEB IH SCH ×2 (07:33→19:39)
--- NOTE | 2017-05-20 08:25 | NUR ---
Pt's mother called. Notified her that pt was placed on the vent last night due to SOB. She said to call her for any updates.
--- NOTE | 2017-05-20 09:00 | NUR ---
Notified Dr. Macario pt was placed on vent last night for SOB. HR [address] Macario ordered to give NS at 100 mL/hr IV x 2 liters. Notified pt's mother Sabrina.
[2017-05-20] MEDS: IV NS 0.9% 1,000 ML IV PRN ×2 (09:20→21:13)
[2017-05-20] MEDS: MIDODRINE HCL (5MG) 5 MG TABLET GT SCH ×2 (09:42→21:48)
[2017-05-20] MEDS: FERROUS SULFATE - FOR SA ONLY 330 MG/7.5 ML UDC GT SCH ×2 (09:46→17:48)
[2017-05-20] MEDS: LACTULOSE 20 G/30 ML UDC GT SCH (09:46)
[2017-05-20] MEDS: PROSTAT (PYXIS) 30 ML UDC GT SCH (09:47)
[2017-05-20] MEDS: Z GUARD REMEDY 4 OZ OINT TP SCH ×2 (09:47→21:48)
[2017-05-20] MEDS: LEVOFLOXACIN 750 MG /D5W 150ML 750 MG in PREMIX 1 EA IV SCH (13:00)
--- NOTE | 2017-05-20 16:21 | NUR ---
Seen by NIKI Pabon. Notified her that pt vomited earlier and abdomen is distended. Pt was given Lactulose and Dulcolax suppository, had 2 small bowel movements but abdomen is still distended. NIKI Pabon ordered to do KUB. She said that pt's abdominal distention might also have caused the SOB. Notified her that pt's mother is asking how long the pt needs to be on the ventilator and if trach tube can be removed. She said the pt needs the trach. Addendum: 05/20/17 at 1625 by MIGUELANGEL REEDER RN Showed sputum culture results to NIKI Pabon. Pt already on Levaquin.
[2017-05-20 20:16] VITALS: BP 109/71
[2017-05-20] MEDS: SENNOSIDES 8.6 MG TABLET GT SCH (21:48)
[2017-05-20] MEDS: MULTIVIT, IRON, MIN NO. 8, FA 1 TAB GT SCH (21:48)
[2017-05-21] MEDS: POLYVINYL ALCOHOL 15 ML BOTTLE EACHEYE SCH ×4 (00:06→18:12)
[2017-05-21] MEDS: PREVACID (NF) 30 MG TAB GT SCH (06:13)
[2017-05-21] MEDS: BACLOFEN (10 MG) 10 MG TABLET GT SCH ×2 (06:14→18:12)
[2017-05-21] MEDS: RENAL NOVASOURCE 1,000 ML BOTTLE GT PRN (06:30)
--- NOTE | 2017-05-21 06:46 | NUR ---
Pt IV hydration of Normal saline completed.Still with abdominal distention,no emesis ,had 1 small bowel movement.No respiratory distress noted on ventilator with prescribed settings.KUB still pending.Will continue to monitor.
[2017-05-21] MEDS: IPRATROPIUM NEB FS 0.5 MG/2.5 ML AMPUL.NEB IH SCH ×2 (07:58→19:37)
[2017-05-21] MEDS: ALBUTEROL FS 2.5 MG/0.5 ML VIAL.NEB NEB SCH ×2 (07:59→19:37)
[2017-05-21 08:00] VITALS: BP 110/77
[2017-05-21] MEDS: FERROUS SULFATE - FOR SA ONLY 330 MG/7.5 ML UDC GT SCH ×2 (08:55→17:00)
[2017-05-21] MEDS: LACTULOSE 20 G/30 ML UDC GT SCH (08:55)
[2017-05-21] MEDS: MIDODRINE HCL (5MG) 5 MG TABLET GT SCH ×2 (08:56→21:00)
[2017-05-21] MEDS: PROSTAT (PYXIS) 30 ML UDC GT SCH (08:57)
[2017-05-21] MEDS: Z GUARD REMEDY 4 OZ OINT TP SCH ×2 (08:57→21:00)
[2017-05-21] MEDS: LEVOFLOXACIN 750 MG /D5W 150ML 750 MG in PREMIX 1 EA IV SCH (13:00)
--- NOTE | 2017-05-21 13:50 | NUR ---
Dr. Macario made aware of KUB result (05/21/17), gastrostomy tube in place and no evidence of obstruction. NNO given.
--- NOTE | 2017-05-21 18:17 | NUR ---
Resident's sister, Bree at bedside. She called Judith who then spoke with this nurse asking why patient was put back on ventilator. Judith claims that when resident started IV ATB, (Levaquin) she started having episodes of SOB. Explained to Judith, that in the past, even prior to starting IV Levaquin, resident have short episodes of SOB/hyperventilation that are resolved through tracheal suctioning or administration of breathing treatment. Assured family that at this time patient is relaxed and no further episode of SOB, mother is concern that patient may not be able to breath on her own if she stays on the ventilator for a long period of time. Will notify cold food packer of family's concern.
[2017-05-21 20:09] VITALS: BP 112/53
[2017-05-21] MEDS: MULTIVIT, IRON, MIN NO. 8, FA 1 TAB GT SCH (21:00)
[2017-05-21] MEDS: SENNOSIDES 8.6 MG TABLET GT SCH (21:00)
[2017-05-22] MEDS: POLYVINYL ALCOHOL 15 ML BOTTLE EACHEYE SCH ×4 (00:08→18:28)
[2017-05-22] MEDS: PREVACID (NF) 30 MG TAB GT SCH (05:40)
[2017-05-22] MEDS: BACLOFEN (10 MG) 10 MG TABLET GT SCH ×2 (05:40→18:28)
[2017-05-22] MEDS: RENAL NOVASOURCE 1,000 ML BOTTLE GT PRN (05:41)
[2017-05-22 07:30] VITALS: BP 104/68
[2017-05-22] MEDS: IPRATROPIUM NEB FS 0.5 MG/2.5 ML AMPUL.NEB IH SCH ×2 (07:50→20:04)
[2017-05-22] MEDS: ALBUTEROL FS 2.5 MG/0.5 ML VIAL.NEB NEB SCH ×2 (07:50→20:04)
[2017-05-22] MEDS: FERROUS SULFATE - FOR SA ONLY 330 MG/7.5 ML UDC GT SCH ×2 (09:00→17:00)
[2017-05-22] MEDS: LACTULOSE 20 G/30 ML UDC GT SCH (09:00)
[2017-05-22] MEDS: MIDODRINE HCL (5MG) 5 MG TABLET GT SCH ×2 (09:00→21:00)
[2017-05-22] MEDS: Z GUARD REMEDY 4 OZ OINT TP SCH ×2 (09:00→21:00)
[2017-05-22] MEDS: PROSTAT (PYXIS) 30 ML UDC GT SCH (09:00)
[2017-05-22] MEDS: LEVOFLOXACIN 750 MG /D5W 150ML 750 MG in PREMIX 1 EA IV SCH (13:00)
[2017-05-22 20:27] VITALS: BP 113/55
[2017-05-22] MEDS: MULTIVIT, IRON, MIN NO. 8, FA 1 TAB GT SCH (21:00)
[2017-05-22] MEDS: SENNOSIDES 8.6 MG TABLET GT SCH (22:15)
--- NOTE | 2017-05-22 23:00 | NUR ---
Charge nurse was called inside patient room. patient is awake and hyperventilating with HR of 150s-160s. primary nurse suctioning patient with large amount of thick yellow secretion. PRN breathing treatment given. patient calm down a little. patient with small BM and urine. SAMPLE MAKER HAND is asked to changed the patient. will continue to monitor.
[2017-05-22] MEDS: ACETAMINOPHEN 650 MG/20 ML UDC- FOR SA PATIENTS ONLY GT PRN (23:45)
--- NOTE | 2017-05-22 23:45 | NUR ---
Patient very agitated with SOB, grunting, and wheezing on bilateral lungs. PRN breathing treatment given, tylenol given for posible pain. repositioned for comfort. will continue to monitor.
--- NOTE | 2017-05-23 00:15 | NUR ---
Patient remained very agitated with SOB, grunting, and wheezing. vital sign of XU=846/113, KM=455u-825k, RR=32, SPO2 96% at 50% FIO2. Charge nurse called the commissions manager MD for DR. Alfaro. will continue to monitor.
--- NOTE | 2017-05-23 00:54 | NUR ---
CHARGE NURSE MADE DR. HERNANDEZ AWARE OF THE CURRENT SITUATION OF THE MEMBER AND WILL WAIT FOR RESPOND.
--- NOTE | 2017-05-23 02:00 | NUR ---
patient calm down a bit. current vs BP=89/48 ZA=003 RR=20 Temp= 99.0. noted small emesis on the side of the mouth. hob elevated. will continue to monitor.
--- NOTE | 2017-05-23 05:01 | NUR ---
pt is calm asleep. no sob noted. no emesis noted. RT=262 RR=18 Temp=99. will continue to monitor.
[2017-05-23] MEDS: RENAL NOVASOURCE 1,000 ML BOTTLE GT PRN (05:13)
[2017-05-23] MEDS: POLYVINYL ALCOHOL 15 ML BOTTLE EACHEYE SCH ×4 (05:17→18:00)
[2017-05-23] MEDS: PREVACID (NF) 30 MG TAB GT SCH (05:17)
[2017-05-23] MEDS: BACLOFEN (10 MG) 10 MG TABLET GT SCH ×2 (05:17→18:00)
--- NOTE | 2017-05-23 06:20 | NUR ---
CHARGE NURSE RECEIVED AN OK FROM DR. HERNANDEZ TO SEND MEMBER TO ER FOR FURTHER EVALUATION. CHARGE NURSE INFORMED HIM THAT MEMBER ALREADY CALM DOWN EARLIER AND IS CURRENTLY SLEEPING. VS BP=90/50 SK=712 RR=18 TEMP=98.4. INFORMED HER THAT WILL TELL THE DAY SHIFT NURSE TO CALL THE HOG WORKER AGAIN OR DR. HERNANDEZ IF PATIENT CONTINUES TO HAVE EPISODE OF AGITATION WITH SOB OR FURTHER EMESIS.
--- NOTE | 2017-05-23 06:45 | NUR ---
DR. HERNANDEZ ORDER CBC WITH CHEM 12 TODAY.
[2017-05-23] MEDS: IPRATROPIUM NEB FS 0.5 MG/2.5 ML AMPUL.NEB IH SCH ×2 (07:24→19:27)
[2017-05-23] MEDS: ALBUTEROL FS 2.5 MG/0.5 ML VIAL.NEB NEB SCH ×2 (07:24→19:27)
[2017-05-23 07:58] VITALS: BP 79/44
[2017-05-23 08:40] LABS: ALBUMIN 2.7 g/dL (3.4-5.0); BASOPHILS % (AUTO) 0.2 % (0.0-2.0); BILIRUBIN,TOTAL 0.2 mg/dL (0.2-1.0); CREATININE 0.7 mg/dL (0.6-1.3); EOSINOPHILS % (AUTO) 0.4 % (0.0-6.0); HEMATOCRIT 26 % (33-45); HEMOGLOBIN 7.8 g/dL (11.5-14.8); LYMPHOCYTES # (AUTO) 2.5 /CMM (0.8-4.8); LYMPHOCYTES % (AUTO) 20.6 % (20.0-44.0); MEAN CORPUSCULAR HEMOGLOBIN 24 PG (26.0-33.0); MEAN CORPUSCULAR HGB CONC 31 g/dl (31.0-36.0); MEAN CORPUSCULAR VOLUME 78 fL (82-100); MONOCYTES # (AUTO) 0.6 /CMM (0.1-1.30); MONOCYTES % (AUTO) 5.3 % (2.0-12.0); NEUTROPHILS # (AUTO) 8.8 /CMM (1.8-8.9); NEUTROPHILS % (AUTO) 73.5 % (43.0-81.0); PLATELET COUNT (AUTO) 315 /CMM (150-450); RDW COEFFICIENT OF VARIATION 20.7 (11.5-15.0); RED BLOOD CELL COUNT(AUTO) 3.27 MIL/uL (4.0-5.2); TOTAL PROTEIN, SERUM 8.5 g/dL (6.4-8.2)
[2017-05-23] MEDS: MIDODRINE HCL (5MG) 5 MG TABLET GT SCH ×2 (08:47→21:37)
[2017-05-23] MEDS: LACTULOSE 20 G/30 ML UDC GT SCH (08:47)
[2017-05-23] MEDS: FERROUS SULFATE - FOR SA ONLY 330 MG/7.5 ML UDC GT SCH ×2 (08:47→16:39)
[2017-05-23] MEDS: Z GUARD REMEDY 4 OZ OINT TP SCH ×2 (08:49→21:37)
[2017-05-23] MEDS: PROSTAT (PYXIS) 30 ML UDC GT SCH (08:49)
[2017-05-23 08:55] LABS: POTASSIUM 2.8 mmol/L (3.5-5.1)
--- NOTE | 2017-05-23 09:00 | NUR ---
Relayed CBC AND CMP report to ,mentioned about elevated WBC and low potassium level.got an order for kcl 40meq x1 now and repeat Q6H X2 ,total of 120meq. and repeat K at 1999.noted and carried out the order.continue to monitor.resident is awake.no SOB no distress noticed.
--- NOTE | 2017-05-23 09:30 | NUR ---
Call made to [facility] made aware the new order and taking first dose of medication from E kit.Spoke to millie.placed an order for replace the E kit.call made to family spoke to sister radha made aware about the new medication and changes of labs.she recommends to keep potassium as routine.made aware that we will follow up with doctor.
[2017-05-23] MEDS: POTASSIUM CHLORIDE 20 MEQ POWDER PACKET GT SCH ×3 (10:11→21:37)
[2017-05-23] MEDS: LEVOFLOXACIN 750 MG /D5W 150ML 750 MG in PREMIX 1 EA IV SCH (12:39)
[2017-05-23 20:00] VITALS: BP 92/62
[2017-05-23] MEDS: MULTIVIT, IRON, MIN NO. 8, FA 1 TAB GT SCH (21:37)
[2017-05-23] MEDS: SENNOSIDES 8.6 MG TABLET GT SCH (21:37)
[2017-05-24] MEDS: BACLOFEN (10 MG) 10 MG TABLET GT SCH ×2 (05:44→17:35)
[2017-05-24] MEDS: PREVACID (NF) 30 MG TAB GT SCH (05:44)
[2017-05-24] MEDS: POLYVINYL ALCOHOL 15 ML BOTTLE EACHEYE SCH ×5 (05:44→23:54)
[2017-05-24 07:44] VITALS: BP 81/33
[2017-05-24] MEDS: ALBUTEROL FS 2.5 MG/0.5 ML VIAL.NEB NEB SCH ×2 (07:50→19:30)
[2017-05-24] MEDS: IPRATROPIUM NEB FS 0.5 MG/2.5 ML AMPUL.NEB IH SCH ×2 (07:50→19:30)
[2017-05-24 08:16] LABS: CALCIUM, SERUM 10.2 mg/dL (8.5-10.1); CREATININE 0.5 mg/dL (0.6-1.3); POTASSIUM 4.3 mmol/L (3.5-5.1)
[2017-05-24] MEDS: FERROUS SULFATE - FOR SA ONLY 330 MG/7.5 ML UDC GT SCH ×2 (09:27→16:44)
[2017-05-24] MEDS: MIDODRINE HCL (5MG) 5 MG TABLET GT SCH ×2 (09:27→21:00)
[2017-05-24] MEDS: PROSTAT (PYXIS) 30 ML UDC GT SCH (09:27)
[2017-05-24] MEDS: LACTULOSE 20 G/30 ML UDC GT SCH (09:27)
[2017-05-24] MEDS: Z GUARD REMEDY 4 OZ OINT TP SCH ×2 (09:28→21:13)
[2017-05-24 19:33] VITALS: BP 130/62
[2017-05-24] MEDS: SENNOSIDES 8.6 MG TABLET GT SCH (21:13)
[2017-05-24] MEDS: MULTIVIT, IRON, MIN NO. 8, FA 1 TAB GT SCH (21:13)
[2017-05-25] MEDS ORDERED: LORAZEPAM INJ 2 MG/ML VIAL IV PRN (00:30)
[2017-05-25] MEDS: POLYVINYL ALCOHOL 15 ML BOTTLE EACHEYE SCH ×3 (06:05→18:20)
[2017-05-25] MEDS: PREVACID (NF) 30 MG TAB GT SCH (06:06)
[2017-05-25] MEDS: BACLOFEN (10 MG) 10 MG TABLET GT SCH ×2 (06:06→18:20)
[2017-05-25] MEDS: IPRATROPIUM NEB FS 0.5 MG/2.5 ML AMPUL.NEB IH SCH ×2 (07:30→19:31)
[2017-05-25] MEDS: ALBUTEROL FS 2.5 MG/0.5 ML VIAL.NEB NEB SCH ×2 (07:30→19:31)
[2017-05-25 07:39] VITALS: BP 101/66
[2017-05-25] MEDS: MIDODRINE HCL (5MG) 5 MG TABLET GT SCH ×2 (09:00→21:18)
[2017-05-25] MEDS: LACTULOSE 20 G/30 ML UDC GT SCH (09:00)
[2017-05-25] MEDS: PROSTAT (PYXIS) 30 ML UDC GT SCH (09:00)
[2017-05-25] MEDS: Z GUARD REMEDY 4 OZ OINT TP SCH ×2 (09:00→21:19)
[2017-05-25] MEDS: FERROUS SULFATE - FOR SA ONLY 330 MG/7.5 ML UDC GT SCH ×2 (09:00→17:10)
--- NOTE | 2017-05-25 11:10 | NUR ---
Seen by Dr. Macario. Notified him that according to night charge nurse's endorsement, pt was tachycardic last night and she received an order to give Ativan 1 mg IV q 6 PRN. However, night charge nurse said Ativan was not given to the pt since pt calmed down. STAT EKG was also done last night. Showed result to Dr. Macario. BP 101/66 [address] Macario ordered to DC Ativan. Pt has an increased amount of secretions, she completed IV ATB on 05/23/17. No new order.
[2017-05-25 19:34] VITALS: BP 104/66
[2017-05-25] MEDS: MULTIVIT, IRON, MIN NO. 8, FA 1 TAB GT SCH (21:18)
[2017-05-25] MEDS: SENNOSIDES 8.6 MG TABLET GT SCH (21:19)
[2017-05-26] MEDS: POLYVINYL ALCOHOL 15 ML BOTTLE EACHEYE SCH ×5 (00:36→23:52)
[2017-05-26] MEDS: PREVACID (NF) 30 MG TAB GT SCH (05:34)
[2017-05-26] MEDS: BACLOFEN (10 MG) 10 MG TABLET GT SCH ×2 (05:34→17:08)
[2017-05-26 07:39] VITALS: BP 131/70
[2017-05-26 07:46] VITALS: BP 111/73
[2017-05-26] MEDS: IPRATROPIUM NEB FS 0.5 MG/2.5 ML AMPUL.NEB IH SCH ×2 (08:04→18:43)
[2017-05-26] MEDS: ALBUTEROL FS 2.5 MG/0.5 ML VIAL.NEB NEB SCH ×2 (08:04→18:43)
[2017-05-26] MEDS: LACTULOSE 20 G/30 ML UDC GT SCH (09:01)
[2017-05-26] MEDS: FERROUS SULFATE - FOR SA ONLY 330 MG/7.5 ML UDC GT SCH ×2 (09:01→11:35)
[2017-05-26] MEDS: PROSTAT (PYXIS) 30 ML UDC GT SCH (09:02)
[2017-05-26] MEDS: MIDODRINE HCL (5MG) 5 MG TABLET GT SCH ×2 (09:02→21:32)
[2017-05-26] MEDS: Z GUARD REMEDY 4 OZ OINT TP SCH ×2 (09:03→21:33)
--- NOTE | 2017-05-26 10:00 | NUR ---
Seen and examined by informed that resident family request to have potassium on daily basis.got an order for BMP on 05/27/17 and will follow up after result.Notified that resident's abdomen is still distended and bloated. Got an order for KUB Today.continue to monitor.
[2017-05-26 20:12] VITALS: BP 101/72
[2017-05-26] MEDS: MULTIVIT, IRON, MIN NO. 8, FA 1 TAB GT SCH (21:30)
[2017-05-26] MEDS: SENNOSIDES 8.6 MG TABLET GT SCH (21:33)
[2017-05-26] MEDS: RENAL NOVASOURCE 1,000 ML BOTTLE GT PRN (21:35)
--- NOTE | 2017-05-27 04:06 | NUR ---
RT Pt trach remains on vent on ordered settings. pt appears comfortable w/ no resp distress noted. sx prn. Addendum: 05/27/17 at 0406 by SAE MERAZ RT Amended: Links added.
[2017-05-27] MEDS: BACLOFEN (10 MG) 10 MG TABLET GT SCH ×2 (05:48→17:54)
[2017-05-27] MEDS: PREVACID (NF) 30 MG TAB GT SCH (05:48)
[2017-05-27] MEDS: POLYVINYL ALCOHOL 15 ML BOTTLE EACHEYE SCH ×3 (05:48→17:54)
[2017-05-27] MEDS: ALBUTEROL FS 2.5 MG/0.5 ML VIAL.NEB NEB SCH ×2 (07:17→20:10)
[2017-05-27] MEDS: IPRATROPIUM NEB FS 0.5 MG/2.5 ML AMPUL.NEB IH SCH ×2 (07:17→20:10)
[2017-05-27 07:38] VITALS: BP 98/55
[2017-05-27 08:54] LABS: CREATININE 0.5 mg/dL (0.6-1.3); POTASSIUM 3.7 mmol/L (3.5-5.1)
[2017-05-27] MEDS: LACTULOSE 20 G/30 ML UDC GT SCH (09:10)
[2017-05-27] MEDS: FERROUS SULFATE - FOR SA ONLY 330 MG/7.5 ML UDC GT SCH ×2 (09:10→17:54)
[2017-05-27] MEDS: MIDODRINE HCL (5MG) 5 MG TABLET GT SCH ×2 (09:10→21:03)
[2017-05-27] MEDS: PROSTAT (PYXIS) 30 ML UDC GT SCH (09:11)
[2017-05-27] MEDS: Z GUARD REMEDY 4 OZ OINT TP SCH ×2 (09:11→21:03)
--- NOTE | 2017-05-27 11:28 | NUR ---
Relayed BMP result to Dr. Macario. K 3.7. Reminded him that pt's sister is asking if pt can be given KCl routinely. Dr. Macario ordered to give KCl 20 mEq via GT daily and to check BMP on Wednesday05/31/17. Notified Judith.
[2017-05-27 20:18] VITALS: BP 117/72
[2017-05-27] MEDS: SENNOSIDES 8.6 MG TABLET GT SCH (21:03)
[2017-05-27] MEDS: MULTIVIT, IRON, MIN NO. 8, FA 1 TAB GT SCH (21:03)
[2017-05-27] MEDS: ACETAMINOPHEN 650 MG/20 ML UDC- FOR SA PATIENTS ONLY GT PRN (22:40)
[2017-05-28] MEDS: POLYVINYL ALCOHOL 15 ML BOTTLE EACHEYE SCH ×5 (00:20→23:31)
--- NOTE | 2017-05-28 02:54 | NUR ---
PT HR INCREASED TO 170. RN AWARE. Addendum: 05/28/17 at 0536 by CHIRAG MENDEZ RT Amended: Links added.
[2017-05-28] MEDS: PREVACID (NF) 30 MG TAB GT SCH (05:31)
[2017-05-28] MEDS: BACLOFEN (10 MG) 10 MG TABLET GT SCH ×2 (05:31→17:53)
[2017-05-28] MEDS: RENAL NOVASOURCE 1,000 ML BOTTLE GT PRN (05:34)
--- NOTE | 2017-05-28 05:46 | NUR ---
RN NOTES At around 10pm last night patient had an episode of tachycardia with HR 130s, Temp 97.5, P 82, BP 117/72. Tylenol was given. At 0130, HR increased to 160s-170s, REsp 40. Patient saturation is 100%. temp was 100F. BP 144/71. Patient is very agitated. no other distress noted. Paged Dr. Ritchie roe for Dr. Alfaro. Awaiting for call back. At this moment, Current heart rate is 138.
--- NOTE | 2017-05-28 06:49 | NUR ---
Bilateral arms swollen +2pitting edema. No swollen noted on both legs. Paged DR. Dugan. Awaiting for call back.
--- NOTE | 2017-05-28 07:04 | NUR ---
ANGLE SHEAR SET UP OPERATOR note Patient sleeping at this time with the heart rate of 120, temp of 100.0. Continue on cooling measure. HOB up, no emesis observed. Remains on vent at prescribed setting with 35 Fi02 with 100 saturation. Will closely monitor. Kept comfortable.
[2017-05-28 07:26] VITALS: BP 109/63
[2017-05-28] MEDS: ALBUTEROL FS 2.5 MG/0.5 ML VIAL.NEB NEB SCH ×2 (07:30→19:50)
[2017-05-28] MEDS: IPRATROPIUM NEB FS 0.5 MG/2.5 ML AMPUL.NEB IH SCH ×2 (08:01→19:50)
--- NOTE | 2017-05-28 08:24 | NUR ---
Place a call to Dr. Dugan, division manager for Dr. Alfaro to report elevated HR 120-136 at this time, VS spoke with Pedro from answering service. Awaiting for MD to call back.
--- NOTE | 2017-05-28 08:27 | NUR ---
Dr Dugan returned the call with new order to do EKG, BMP and CBC stat, and to give 1 L NS bolus. Orders noted and carried out.
[2017-05-28] MEDS: PROSTAT (PYXIS) 30 ML UDC GT SCH (09:20)
[2017-05-28] MEDS: MIDODRINE HCL (5MG) 5 MG TABLET GT SCH ×2 (09:20→21:32)
[2017-05-28] MEDS: FERROUS SULFATE - FOR SA ONLY 330 MG/7.5 ML UDC GT SCH ×2 (09:20→17:53)
[2017-05-28] MEDS: POTASSIUM CHLORIDE 20 MEQ POWDER PACKET GT SCH (09:20)
[2017-05-28] MEDS: LACTULOSE 20 G/30 ML UDC GT SCH (09:20)
[2017-05-28] MEDS: Z GUARD REMEDY 4 OZ OINT TP SCH ×2 (09:20→21:32)
[2017-05-28 09:59] LABS: CALCIUM, SERUM 10.1 mg/dL (8.5-10.1); CREATININE 0.7 mg/dL (0.6-1.3); POTASSIUM 3.9 mmol/L (3.5-5.1)
[2017-05-28 10:04] LABS: BASOPHILS % (AUTO) 0.5 % (0.0-2.0); EOSINOPHILS # (AUTO) 0.1 /CMM (0.0-0.7); HEMATOCRIT 30 % (33-45); HEMOGLOBIN 9.3 g/dL (11.5-14.8); LYMPHOCYTES # (AUTO) 2.2 /CMM (0.8-4.8); LYMPHOCYTES % (AUTO) 24.1 % (20.0-44.0); MEAN CORPUSCULAR HEMOGLOBIN 24 PG (26.0-33.0); MEAN CORPUSCULAR HGB CONC 32 g/dl (31.0-36.0); MEAN CORPUSCULAR VOLUME 77 fL (82-100); MONOCYTES # (AUTO) 0.5 /CMM (0.1-1.30); MONOCYTES % (AUTO) 5.2 % (2.0-12.0); NEUTROPHILS # (AUTO) 6.3 /CMM (1.8-8.9); NEUTROPHILS % (AUTO) 69.2 % (43.0-81.0); PLATELET COUNT (AUTO) 378 /CMM (150-450); RED BLOOD CELL COUNT(AUTO) 3.83 MIL/uL (4.0-5.2); WHITE BLOOD COUNT (AUTO) 9.1 K/uL (4.3-11.0)
[2017-05-28] MEDS ORDERED: IV NS 0.9% 1,000 ML IV ONE (10:30)
[2017-05-28 11:30] VITALS: BP 104/61
--- NOTE | 2017-05-28 11:57 | NUR ---
Reported to Dr. Kvng Alfaro result of CBC, BMP and EKG result done today. Asked MD if he wants a GI consult due to abdominal distention, he said no. Notified MD that her HR has been elevated last night 160-170 beats per minutes and running IVF (NS 1 L) that was ordered by Dr. nicholas. He said, patient could be dehydrated and IVF will correct her tachycardia. No other order given.
--- NOTE | 2017-05-28 14:00 | NUR ---
Spoke with Judith, sister and updated her of patient's condition including new order to give IVF due to tachycardia. She said that she will inform her mother. HR improved 82-88.
[2017-05-28 19:56] VITALS: BP 101/73
[2017-05-28] MEDS: MULTIVIT, IRON, MIN NO. 8, FA 1 TAB GT SCH (21:32)
[2017-05-28] MEDS: SENNOSIDES 8.6 MG TABLET GT SCH (21:32)
--- NOTE | 2017-05-29 05:28 | NUR ---
RT PT RECEIVED ON [facility] VENT WITH NOTED SETTING PER MD ORDERS. NO SOB OR RESP DISTRESS NOTED ON SHIFT. TX GIVEN ORDERED WITH NO ADVERSE REACTION. Addendum: 05/29/17 at 0528 by SUJEY EDWARD RT Amended: Links added.
[2017-05-29] MEDS: BACLOFEN (10 MG) 10 MG TABLET GT SCH ×2 (05:31→17:22)
[2017-05-29] MEDS: POLYVINYL ALCOHOL 15 ML BOTTLE EACHEYE SCH ×4 (05:31→23:15)
[2017-05-29] MEDS: PREVACID (NF) 30 MG TAB GT SCH (05:31)
[2017-05-29] MEDS: RENAL NOVASOURCE 1,000 ML BOTTLE GT PRN (05:48)
[2017-05-29] MEDS: ALBUTEROL FS 2.5 MG/0.5 ML VIAL.NEB NEB SCH ×2 (07:29→19:55)
[2017-05-29] MEDS: IPRATROPIUM NEB FS 0.5 MG/2.5 ML AMPUL.NEB IH SCH ×2 (07:29→19:55)
[2017-05-29 08:00] VITALS: BP 129/64
[2017-05-29] MEDS: MIDODRINE HCL (5MG) 5 MG TABLET GT SCH ×2 (09:00→20:13)
[2017-05-29] MEDS: LACTULOSE 20 G/30 ML UDC GT SCH (09:00)
[2017-05-29] MEDS: FERROUS SULFATE - FOR SA ONLY 330 MG/7.5 ML UDC GT SCH ×2 (09:00→17:22)
[2017-05-29] MEDS: PROSTAT (PYXIS) 30 ML UDC GT SCH (09:00)
[2017-05-29] MEDS: POTASSIUM CHLORIDE 20 MEQ POWDER PACKET GT SCH (09:00)
[2017-05-29] MEDS: Z GUARD REMEDY 4 OZ OINT TP SCH ×2 (09:00→20:14)
--- NOTE | 2017-05-29 19:55 | NUR ---
PT RECEIVED ON [facility] VENT WITH NOTED SETTING PER MD ORDERS. NO SOB OR RESP DISTRESS NOTED ON SHIFT. TX GIVEN ORDERED WITH NO ADVERSE REACTION. VENT PLUGGED INTO RED OUTLET, AMBU BAG AND BACK UP TRACH BEDSIDE. ALARMS ARE SET AND AUDIBLE PER POLICY. WILL CONTINUE TO MONITOR. Addendum: 05/30/17 at 0513 by CHIRAG MENDEZ RT Amended: Links added.
[2017-05-29] MEDS: MULTIVIT, IRON, MIN NO. 8, FA 1 TAB GT SCH (20:14)
[2017-05-29 20:24] VITALS: BP 97/58
[2017-05-29] MEDS: SENNOSIDES 8.6 MG TABLET GT SCH (21:11)
[2017-05-30] MEDS: PREVACID (NF) 30 MG TAB GT SCH (05:25)
[2017-05-30] MEDS: BACLOFEN (10 MG) 10 MG TABLET GT SCH ×2 (05:25→18:33)
[2017-05-30] MEDS: POLYVINYL ALCOHOL 15 ML BOTTLE EACHEYE SCH ×3 (05:25→18:33)
[2017-05-30] MEDS: RENAL NOVASOURCE 1,000 ML BOTTLE GT PRN (05:26)
[2017-05-30] MEDS: ALBUTEROL FS 2.5 MG/0.5 ML VIAL.NEB NEB SCH ×2 (06:58→19:30)
[2017-05-30] MEDS: IPRATROPIUM NEB FS 0.5 MG/2.5 ML AMPUL.NEB IH SCH ×2 (06:58→19:30)
[2017-05-30 09:12] VITALS: BP 96/66
[2017-05-30] MEDS: POTASSIUM CHLORIDE 20 MEQ POWDER PACKET GT SCH (09:55)
[2017-05-30] MEDS: FERROUS SULFATE - FOR SA ONLY 330 MG/7.5 ML UDC GT SCH ×2 (09:55→17:00)
[2017-05-30] MEDS: LACTULOSE 20 G/30 ML UDC GT SCH (09:55)
[2017-05-30] MEDS: Z GUARD REMEDY 4 OZ OINT TP SCH ×2 (09:56→21:17)
[2017-05-30] MEDS: PROSTAT (PYXIS) 30 ML UDC GT SCH (09:56)
[2017-05-30] MEDS: MIDODRINE HCL (5MG) 5 MG TABLET GT SCH ×2 (09:56→21:17)
[2017-05-30 20:34] VITALS: BP 107/76
--- NOTE | 2017-05-30 20:59 | NUR ---
PT RECEIVED ON [facility] VENT WITH NOTED SETTING PER MD ORDERS. NO SOB OR RESP DISTRESS NOTED ON SHIFT. TX GIVEN ORDERED WITH NO ADVERSE REACTION. VENT PLUGGED INTO RED OUTLET, AMBU BAG AND BACK UP TRACH BEDSIDE. ALARMS ARE SET AND AUDIBLE PER POLICY. WILL CONTINUE TO MONITOR. Addendum: 05/31/17 at 0543 by CHIRAG MENDEZ RT Amended: Links added.
[2017-05-30] MEDS: SENNOSIDES 8.6 MG TABLET GT SCH (21:17)
[2017-05-30] MEDS: MULTIVIT, IRON, MIN NO. 8, FA 1 TAB GT SCH (21:17)
[2017-05-31] MEDS: POLYVINYL ALCOHOL 15 ML BOTTLE EACHEYE SCH ×5 (00:43→23:38)
[2017-05-31] MEDS: BACLOFEN (10 MG) 10 MG TABLET GT SCH ×2 (06:20→17:44)
[2017-05-31] MEDS: PREVACID (NF) 30 MG TAB GT SCH (06:20)
[2017-05-31] MEDS: ALBUTEROL FS 2.5 MG/0.5 ML VIAL.NEB NEB SCH ×2 (07:41→19:43)
[2017-05-31] MEDS: IPRATROPIUM NEB FS 0.5 MG/2.5 ML AMPUL.NEB IH SCH ×2 (07:41→19:43)
[2017-05-31 08:21] LABS: CALCIUM, SERUM 9.6 mg/dL (8.5-10.1); CREATININE 0.5 mg/dL (0.6-1.3); POTASSIUM 3.9 mmol/L (3.5-5.1)
[2017-05-31 08:26] VITALS: BP 117/66
[2017-05-31] MEDS: POTASSIUM CHLORIDE 20 MEQ POWDER PACKET GT SCH (09:38)
[2017-05-31] MEDS: FERROUS SULFATE - FOR SA ONLY 330 MG/7.5 ML UDC GT SCH ×2 (09:38→17:44)
[2017-05-31] MEDS: LACTULOSE 20 G/30 ML UDC GT SCH (09:38)
[2017-05-31] MEDS: Z GUARD REMEDY 4 OZ OINT TP SCH ×2 (09:39→21:36)
[2017-05-31] MEDS: PROSTAT (PYXIS) 30 ML UDC GT SCH (09:39)
[2017-05-31] MEDS: MIDODRINE HCL (5MG) 5 MG TABLET GT SCH ×2 (09:39→21:36)
--- NOTE | 2017-05-31 11:05 | NUR ---
seen the pt and aware about the secretions coming via nose with thick secretion of g-tube feeding formula and dr ordered to monitor the pt.
--- NOTE | 2017-05-31 20:00 | NUR ---
PT RECEIVED ON [facility] VENT WITH NOTED SETTING PER MD ORDERS. NO SOB OR RESP DISTRESS NOTED ON SHIFT. TX GIVEN ORDERED WITH NO ADVERSE REACTION. VENT PLUGGED INTO RED OUTLET, AMBU BAG AND BACK UP TRACH BEDSIDE. ALARMS ARE SET AND AUDIBLE PER POLICY. WILL CONTINUE TO MONITOR Addendum: 06/01/17 at 0437 by CHIRAG MENDEZ RT Amended: Links added.
[2017-05-31] MEDS: MULTIVIT, IRON, MIN NO. 8, FA 1 TAB GT SCH (21:36)
[2017-05-31] MEDS: SENNOSIDES 8.6 MG TABLET GT SCH (21:36)
--- NOTE | 2017-05-31 23:05 | NUR ---
RN NOTES Noted pt with respiratory distress. HR 120. suctioned and breathing tx. Will continue to monitor.
[2017-05-31 23:18] VITALS: BP 109/71
--- NOTE | 2017-06-01 | NUR ---
RN NOTES Pt with no respiratory distress. Will continue to monitor.
--- NOTE | 2017-06-01 02:00 | NUR ---
RN NOTES Noted pt with respiratory distress. HR 110. Repositioned pt and pericare provided. Will continue to monitor.
--- NOTE | 2017-06-01 02:35 | NUR ---
RN NOTES Pt calm with no respiratory distress. Will continue to monitor.
--- NOTE | 2017-06-01 06:00 | NUR ---
RN NOTES Pt stable and appears to be comfortable in bed.
[2017-06-01] MEDS: PREVACID (NF) 30 MG TAB GT SCH (06:01)
[2017-06-01] MEDS: POLYVINYL ALCOHOL 15 ML BOTTLE EACHEYE SCH (06:01)
[2017-06-01] MEDS: BACLOFEN (10 MG) 10 MG TABLET GT SCH (06:02)
[2017-06-01] MEDS: IPRATROPIUM NEB FS 0.5 MG/2.5 ML AMPUL.NEB IH SCH (08:24)
[2017-06-01] MEDS: ALBUTEROL FS 2.5 MG/0.5 ML VIAL.NEB NEB SCH (08:24)
[2017-06-01 08:29] LABS: BASOPHILS # (AUTO) 0.2 /CMM (0.0-0.2); BASOPHILS % (AUTO) 1.6 % (0.0-2.0); EOSINOPHILS # (AUTO) 0.1 /CMM (0.0-0.7); EOSINOPHILS % (AUTO) 0.5 % (0.0-6.0); HEMATOCRIT 29 % (33-45); HEMOGLOBIN 9.1 g/dL (11.5-14.8); LYMPHOCYTES # (AUTO) 2.5 /CMM (0.8-4.8); MEAN CORPUSCULAR HEMOGLOBIN 24 PG (26.0-33.0); MEAN CORPUSCULAR HGB CONC 31 g/dl (31.0-36.0); MEAN CORPUSCULAR VOLUME 77 fL (82-100); MONOCYTES # (AUTO) 0.8 /CMM (0.1-1.30); MONOCYTES % (AUTO) 7.3 % (2.0-12.0); NEUTROPHILS # (AUTO) 7.3 /CMM (1.8-8.9); NEUTROPHILS % (AUTO) 67.6 % (43.0-81.0); PLATELET COUNT (AUTO) 382 /CMM (150-450); RDW COEFFICIENT OF VARIATION 19.3 (11.5-15.0); RED BLOOD CELL COUNT(AUTO) 3.79 MIL/uL (4.0-5.2); WHITE BLOOD COUNT (AUTO) 10.9 K/uL (4.3-11.0)
[2017-06-01 08:34] VITALS: BP 103/58
[2017-06-01] MEDS: POTASSIUM CHLORIDE 20 MEQ POWDER PACKET GT SCH (08:34)
[2017-06-01] MEDS: PROSTAT (PYXIS) 30 ML UDC GT SCH (08:34)
[2017-06-01] MEDS: FERROUS SULFATE - FOR SA ONLY 330 MG/7.5 ML UDC GT SCH (08:34)
[2017-06-01] MEDS: MIDODRINE HCL (5MG) 5 MG TABLET GT SCH (08:34)
[2017-06-01] MEDS: Z GUARD REMEDY 4 OZ OINT TP SCH (08:34)
[2017-06-01] MEDS: LACTULOSE 20 G/30 ML UDC GT SCH (08:35)
[2017-06-01 09:32] LABS: CREATININE 0.7 mg/dL (0.6-1.3); PHOSPHORUS 3.7 mg/dL (2.5-4.9); POTASSIUM 4.4 mmol/L (3.5-5.1)
[2017-11-20] MEDS ORDERED: TUBERCULIN,PURIF.PROT.DERIV. 5 TU/0.1 ML VIAL ID SCH (09:00)
== END 2017-05-30 23:59 | disposition other institution (70) | DRG 133 ==
LOC: SA 17:32
PROVIDERS: ADMIT Internal Medicine Nephrology; ATTEND Internal Medicine Nephrology
PROC: 0DH63UZ Insertion of Feeding Device into Stomach, Percutaneous Approach (ICD-10-PCS; principal; 2017-03-02)
DX: J96.10 Chronic respiratory failure, unspecified whether with hypoxia or hypercapnia (principal); G93.40 Encephalopathy, unspecified; R13.10 Dysphagia, unspecified; F09 Unspecified mental disorder due to known physiological condition; I25.10 Atherosclerotic heart disease of native coronary artery without angina pectoris
CPT/HCPCS: 31720; 36415; 36600; 71010-TC; 74000-TC; 76705-TC; 76882; 80048-TC; 80053-TC; 80076-TC; 80202-TC; 82150-TC; 82272-TC; 82746; 83540-TC; 83735-TC; 84100-TC; 84439-TC; 84443-TC; 85025-TC; 87040-TC; 87070-TC; 87086-TC; 87186-TC; 93970-TC; 94003-TC; 94640-TC; 94762-TC; 94799-TC; A4216; A4606; A4623; A6402; A7526; J1956; J2060; J3370; J3490; J7030; J7040; J7050; J7060; J8597; Q0164; Q0177; Q9963; Z7610

== ENCOUNTER 2017-05-31 00:01 | Inpatient (IN) | payer OTHER ==
[~2017-05-31] VITALS: Ht 165.1 cm; Wt 83.5 kg
[2017-06-01 08:00] VITALS: BP 124/74
[2017-06-01] MEDS ORDERED: IPRATROPIUM NEB FS 0.5 MG/2.5 ML AMPUL.NEB IH PRN (10:34)
--- NOTE | 2017-06-01 11:00 | NUR ---
Please see resident's previous account [id number] for all assessments and nurses notes. Originally admitted on 11/21/15.
--- NOTE | 2017-06-01 11:03 | NUR ---
Please see resident's previous account [id number] for Social Service assessments, evaluations and notes.
[2017-06-01] MEDS: POLYVINYL ALCOHOL 15 ML BOTTLE EACHEYE SCH ×2 (12:00→17:24)
--- NOTE | 2017-06-01 12:55 | NUR ---
Notified Dr. Macario earlier this morning that pt was having SOB last night, pt appeared like she had pain according to night charge nurse and Tylenol was given. Dr. Macario said he ordered CXR for pt and he will look at the result.
[2017-06-01] MEDS: BACLOFEN (10 MG) 10 MG TABLET GT SCH (17:24)
[2017-06-01] MEDS: FERROUS SULFATE - FOR SA ONLY 330 MG/7.5 ML UDC GT SCH (17:24)
[2017-06-01] MEDS: IPRATROPIUM NEB FS 0.5 MG/2.5 ML AMPUL.NEB IH SCH (19:30)
[2017-06-01] MEDS: ALBUTEROL FS 2.5 MG/0.5 ML VIAL.NEB NEB SCH (19:30)
[2017-06-01 20:01] VITALS: BP 138/78
[2017-06-01 20:08] VITALS: BP 101/75
--- NOTE | 2017-06-01 21:06 | NUR ---
PT RECEIVED ON VENT VIA CHARTED SETTINGS AND ROUTE. TOLERATING VENT SETTINGS. AMBU BAG AT BEDSIDE, ALARMS SET AND AUDIBLE. VENT PLUGGED INTO RED OUTLET. NO RESP DISTRESS NOTED. WILL CONTINUE TO MONITOR Addendum: 06/01/17 at 2106 by MELISA GARCIA RT Amended: Links added.
[2017-06-01] MEDS: Z GUARD REMEDY 4 OZ OINT TP SCH (21:38)
[2017-06-01] MEDS: MIDODRINE HCL (5MG) 5 MG TABLET GT SCH (21:38)
[2017-06-01] MEDS: MULTIVIT, IRON, MIN NO. 8, FA 1 TAB GT SCH (21:38)
[2017-06-01] MEDS: SENNOSIDES 8.6 MG TABLET GT SCH (21:38)
[2017-06-02] MEDS: POLYVINYL ALCOHOL 15 ML BOTTLE EACHEYE SCH ×5 (00:24→23:44)
[2017-06-02] MEDS: PREVACID (NF) 30 MG TAB GT SCH (05:45)
[2017-06-02] MEDS: BACLOFEN (10 MG) 10 MG TABLET GT SCH ×2 (05:45→17:36)
[2017-06-02 07:50] VITALS: BP 129/66
[2017-06-02] MEDS: ALBUTEROL FS 2.5 MG/0.5 ML VIAL.NEB NEB SCH ×2 (07:51→19:30)
[2017-06-02] MEDS: IPRATROPIUM NEB FS 0.5 MG/2.5 ML AMPUL.NEB IH SCH ×2 (07:51→19:30)
[2017-06-02] MEDS: LACTULOSE 20 G/30 ML UDC GT SCH (08:23)
[2017-06-02] MEDS: FERROUS SULFATE - FOR SA ONLY 330 MG/7.5 ML UDC GT SCH ×2 (08:23→17:35)
[2017-06-02] MEDS: POTASSIUM CHLORIDE 20 MEQ POWDER PACKET GT SCH (08:27)
[2017-06-02] MEDS: PROSTAT (PYXIS) 30 ML UDC GT SCH (08:28)
[2017-06-02] MEDS: MIDODRINE HCL (5MG) 5 MG TABLET GT SCH ×2 (08:28→21:22)
[2017-06-02] MEDS: Z GUARD REMEDY 4 OZ OINT TP SCH ×2 (08:29→21:22)
[2017-06-02] MEDS: RENAL NOVASOURCE 1,000 ML BOTTLE GT PRN (16:26)
[2017-06-02 20:06] VITALS: BP 110/75
[2017-06-02] MEDS: SENNOSIDES 8.6 MG TABLET GT SCH (21:22)
[2017-06-02] MEDS: LACTULOSE 10 G/15 ML UDC (PYXIS) GT PRN (21:22)
[2017-06-02] MEDS: MULTIVIT, IRON, MIN NO. 8, FA 1 TAB GT SCH (21:22)
--- NOTE | 2017-06-03 03:33 | NUR ---
PT REC'D TRACHED ON NOTED [facility] VENT SETTINGS. PT IS COMFORTABLE AND NO RESP DISTRESS NOTED. VENT PLUGGED INTO RED OUTLET. ALARMS ARE SET AND AUDIBLE. AMBU BAG BEDSIDE. WILL CONTINUE TO MONITOR. Addendum: 06/03/17 at 0528 by CHIRAG MENDEZ RT Amended: Links added.
[2017-06-03] MEDS: BACLOFEN (10 MG) 10 MG TABLET GT SCH ×2 (05:22→18:13)
[2017-06-03] MEDS: POLYVINYL ALCOHOL 15 ML BOTTLE EACHEYE SCH ×4 (05:22→23:40)
[2017-06-03] MEDS: LACTULOSE 10 G/15 ML UDC (PYXIS) GT PRN ×2 (05:22→21:20)
[2017-06-03] MEDS: PREVACID (NF) 30 MG TAB GT SCH (05:22)
[2017-06-03 07:38] VITALS: BP 129/72
[2017-06-03] MEDS: ALBUTEROL FS 2.5 MG/0.5 ML VIAL.NEB NEB SCH ×2 (08:21→19:58)
[2017-06-03] MEDS: IPRATROPIUM NEB FS 0.5 MG/2.5 ML AMPUL.NEB IH SCH ×2 (08:21→19:58)
[2017-06-03] MEDS: PROSTAT (PYXIS) 30 ML UDC GT SCH (08:46)
[2017-06-03] MEDS: POTASSIUM CHLORIDE 20 MEQ POWDER PACKET GT SCH (08:46)
[2017-06-03] MEDS: FERROUS SULFATE - FOR SA ONLY 330 MG/7.5 ML UDC GT SCH ×2 (08:46→17:00)
[2017-06-03] MEDS: Z GUARD REMEDY 4 OZ OINT TP SCH ×2 (08:46→21:20)
[2017-06-03] MEDS: MIDODRINE HCL (5MG) 5 MG TABLET GT SCH ×2 (08:46→21:19)
[2017-06-03] MEDS: LACTULOSE 20 G/30 ML UDC GT SCH (08:46)
[2017-06-03] MEDS: NYSTATIN TOP POWDER 15 GM BOTTLE TP SCH ×2 (09:00→21:19)
--- NOTE | 2017-06-03 13:45 | NUR ---
Residents mother and conservator Sabrina signed admission intake paperwork (patient rights acknowledgement, documentation of preferred intensity of care, conditions of admission, [place] Standard Admission Agreement, and voluntary prior express consent form). Per resident's mother, resident to remain full code.
--- NOTE | 2017-06-03 16:19 | NUR ---
PATIENT RECEIVED IN STABLE CONDITION. NO S/S OF RESPIRATORY DISTRESS. VENT IS PLUGGED INTO RED OUTLETS. ALARMS ARE SET AND AUDIBLE. Addendum: 06/03/17 at 1620 by NANI PALMA RT Amended: Links added.
--- NOTE | 2017-06-03 16:45 | NUR ---
Pt's mother visited and expressed concern about pt's edema. She also wanted to know if pt can already be weaned off the ventilator. Notified Dr. Macario of pt's mother's concerns and he said he does not think the pt can already be weaned off the vent.
--- NOTE | 2017-06-03 18:00 | NUR ---
Seen by NIKI Pabon. Notified her that pt's mother is asking if pt can be weaned off the ventilator and that she is concerned the pt seems to be retaining fluids. NIKI Pabon said she will discuss the concerns with Dr. Macario.
--- NOTE | 2017-06-03 19:58 | NUR ---
[facility] WITH NOTED SETTINGS PT IS STABLE AND NO RESPIRATORY DISTRESS NOTED. BREATHING TX GIVEN MD'S ORDERED, NO ADVERSE REACTION NOTED. VENT ALARM WORKING AND AUDIBLE, FOUNDATION ASSISTANT CUFF CHECKED, VENT PLUGGED INTO RED OUTLET. SUCTIONED MODERATE AMOUNT OF YELLOW THICK SECRETIONS. AMBU BAG AT BEDSIDE. WILL CONTINUE TO MONITOR THE PATIENT.
[2017-06-03 20:03] VITALS: BP 110/58
[2017-06-03] MEDS: MULTIVIT, IRON, MIN NO. 8, FA 1 TAB GT SCH (21:19)
[2017-06-03] MEDS: SENNOSIDES 8.6 MG TABLET GT SCH (21:20)
[2017-06-04] MEDS: BACLOFEN (10 MG) 10 MG TABLET GT SCH ×2 (05:33→17:50)
[2017-06-04] MEDS: POLYVINYL ALCOHOL 15 ML BOTTLE EACHEYE SCH ×4 (05:33→23:17)
[2017-06-04] MEDS: LACTULOSE 10 G/15 ML UDC (PYXIS) GT PRN (05:33)
[2017-06-04] MEDS: PREVACID (NF) 30 MG TAB GT SCH (05:33)
[2017-06-04] MEDS: RENAL NOVASOURCE 1,000 ML BOTTLE GT PRN (05:33)
[2017-06-04 07:51] VITALS: BP 120/67
[2017-06-04] MEDS: IPRATROPIUM NEB FS 0.5 MG/2.5 ML AMPUL.NEB IH SCH ×2 (08:07→19:52)
[2017-06-04] MEDS: ALBUTEROL FS 2.5 MG/0.5 ML VIAL.NEB NEB SCH ×2 (08:07→19:52)
[2017-06-04] MEDS: Z GUARD REMEDY 4 OZ OINT TP SCH ×2 (09:48→21:23)
[2017-06-04] MEDS: FERROUS SULFATE - FOR SA ONLY 330 MG/7.5 ML UDC GT SCH ×2 (09:48→16:45)
[2017-06-04] MEDS: MIDODRINE HCL (5MG) 5 MG TABLET GT SCH ×2 (09:48→21:00)
[2017-06-04] MEDS: PROSTAT (PYXIS) 30 ML UDC GT SCH (09:48)
[2017-06-04] MEDS: LACTULOSE 20 G/30 ML UDC GT SCH (09:48)
[2017-06-04] MEDS: POTASSIUM CHLORIDE 20 MEQ POWDER PACKET GT SCH (09:48)
[2017-06-04] MEDS: NYSTATIN TOP POWDER 15 GM BOTTLE TP SCH ×2 (09:48→21:23)
--- NOTE | 2017-06-04 14:20 | NUR ---
Obtain an order from Dr. Macario for GI consult due to abdominal distention, Luna Sandoval NP GI aware, she stated that she hugh come to see patient today.
--- NOTE | 2017-06-04 15:23 | NUR ---
Seen and examined by Jaime Carrasco, NIKI, informed of the reason for consult. She said she will review the medications, results of previous KUB and will order in [facility] if needed.
--- NOTE | 2017-06-04 17:40 | NUR ---
Notified Dr. Macario during IDT that family is asking when will patient start weaning from ventilator, according to MD Macario patient he wants patient to have small amount of diuresis. Coby Pabon gave an order for Lasix 20mg. IVP x 4days with parameter to hold if SBP less than 80. Judith notified of the new order and the plan, attempted resident's mother but no answer. Order noted and carried out.
[2017-06-04 20:00] VITALS: BP 121/57
--- NOTE | 2017-06-04 20:06 | NUR ---
PT REC'D TRACHED ON NOTED [facility] VENT SETTINGS. PT IS COMFORTABLE AND NO RESP DISTRESS NOTED. VENT PLUGGED INTO RED OUTLET. ALARMS ARE SET AND AUDIBLE. AMBU BAG BEDSIDE. WILL CONTINUE TO MONITOR. Addendum: 06/04/17 at 2006 by ELVIRA CHEN RT Amended: Links added.
[2017-06-04] MEDS: FUROSEMIDE 20 MG/2 ML VIAL IV SCH (20:15)
[2017-06-04] MEDS: SENNOSIDES 8.6 MG TABLET GT SCH (21:23)
[2017-06-04] MEDS: MULTIVIT, IRON, MIN NO. 8, FA 1 TAB GT SCH (21:23)
[2017-06-05] MEDS: LACTULOSE 10 G/15 ML UDC (PYXIS) GT PRN (05:12)
[2017-06-05] MEDS: PREVACID (NF) 30 MG TAB GT SCH (05:12)
[2017-06-05] MEDS: POLYVINYL ALCOHOL 15 ML BOTTLE EACHEYE SCH ×3 (05:12→18:07)
[2017-06-05] MEDS: RENAL NOVASOURCE 1,000 ML BOTTLE GT PRN (05:12)
[2017-06-05] MEDS: BACLOFEN (10 MG) 10 MG TABLET GT SCH ×2 (05:12→18:07)
[2017-06-05] MEDS: ALBUTEROL FS 2.5 MG/0.5 ML VIAL.NEB NEB SCH ×2 (07:36→20:27)
[2017-06-05] MEDS: IPRATROPIUM NEB FS 0.5 MG/2.5 ML AMPUL.NEB IH SCH ×2 (07:36→20:27)
[2017-06-05 08:02] VITALS: BP 106/63
[2017-06-05] MEDS: LACTULOSE 20 G/30 ML UDC GT SCH (08:20)
[2017-06-05] MEDS: FERROUS SULFATE - FOR SA ONLY 330 MG/7.5 ML UDC GT SCH ×2 (08:20→17:00)
[2017-06-05] MEDS: MIDODRINE HCL (5MG) 5 MG TABLET GT SCH ×2 (08:20→21:00)
[2017-06-05] MEDS: POTASSIUM CHLORIDE 20 MEQ POWDER PACKET GT SCH (08:20)
[2017-06-05] MEDS: Z GUARD REMEDY 4 OZ OINT TP SCH ×2 (08:24→21:18)
[2017-06-05] MEDS: PROSTAT (PYXIS) 30 ML UDC GT SCH (08:24)
[2017-06-05] MEDS: NYSTATIN TOP POWDER 15 GM BOTTLE TP SCH ×2 (08:24→21:18)
--- NOTE | 2017-06-05 16:45 | NUR ---
Charge nurse saw pt having an ultrasound. NIKI Sandoval ordered the abdominal ultrasound and to place pt on NPO. Pt was not on NPO when ultrasound was done. Notified NIKI Carrasco. She said to relay the result to her once it is available.
--- NOTE | 2017-06-05 18:57 | NUR ---
Relayed abdominal ultrasound to NIKI Sandoval. Notified pt's mother Sabrina that abdominal ultrasound was done.
[2017-06-05] MEDS: FUROSEMIDE 20 MG/2 ML VIAL IV SCH (20:00)
[2017-06-05 20:39] VITALS: BP 126/78
[2017-06-05] MEDS: MULTIVIT, IRON, MIN NO. 8, FA 1 TAB GT SCH (21:16)
[2017-06-05] MEDS: SENNOSIDES 8.6 MG TABLET GT SCH (21:18)
[2017-06-06] MEDS: POLYVINYL ALCOHOL 15 ML BOTTLE EACHEYE SCH ×5 (00:18→21:00)
[2017-06-06] MEDS: BACLOFEN (10 MG) 10 MG TABLET GT SCH ×2 (05:16→17:46)
[2017-06-06] MEDS: PREVACID (NF) 30 MG TAB GT SCH (05:16)
[2017-06-06] MEDS: RENAL NOVASOURCE 1,000 ML BOTTLE GT PRN (05:23)
[2017-06-06] MEDS: ALBUTEROL FS 2.5 MG/0.5 ML VIAL.NEB NEB SCH ×2 (07:09→20:29)
[2017-06-06] MEDS: IPRATROPIUM NEB FS 0.5 MG/2.5 ML AMPUL.NEB IH SCH ×2 (07:09→20:29)
[2017-06-06] MEDS: LACTULOSE 20 G/30 ML UDC GT SCH (09:14)
[2017-06-06] MEDS: PROSTAT (PYXIS) 30 ML UDC GT SCH (09:15)
[2017-06-06] MEDS: MIDODRINE HCL (5MG) 5 MG TABLET GT SCH ×2 (09:15→20:59)
[2017-06-06] MEDS: Z GUARD REMEDY 4 OZ OINT TP SCH ×2 (09:15→21:00)
[2017-06-06] MEDS: NYSTATIN TOP POWDER 15 GM BOTTLE TP SCH ×2 (09:15→21:00)
[2017-06-06] MEDS: POTASSIUM CHLORIDE 20 MEQ POWDER PACKET GT SCH (09:15)
[2017-06-06] MEDS: FERROUS SULFATE - FOR SA ONLY 330 MG/7.5 ML UDC GT SCH ×2 (09:15→17:46)
[2017-06-06 09:45] VITALS: BP 93/57
[2017-06-06] MEDS: ACETAMINOPHEN 650 MG/20 ML UDC- FOR SA PATIENTS ONLY GT PRN ×2 (15:00→22:28)
--- NOTE | 2017-06-06 15:00 | NUR ---
Patients' heart rate elevated 168, noted eyes are wide open, agitated. On ventilator, suctioned, with thick yellow secretions, kept HOB elevated for comfort measures. On continuous 02 sat monitoring 97%. Noted facial grimacing, medicated with tylenol 650 mg/20 ml via GT. B/P 131/99, TEMP. 100 DEGREES F. RT assessed patient, breathing tx given. Room is warm, turned on patients' fan, room thermostat adjusted to keep patient comfortable. HR decreased to 150 after few minutes. Patients' has edema to bilateral upper extremities, MD has been aware of edema, has order of lasix 20 mg IVP daily x 4 days. Patient closely monitored.
--- NOTE | 2017-06-06 16:00 | NUR ---
Patients' heart rate elevated again HR 173, noted agitation, B/P 144/72. Called DR. Nazanin Wong' answering service, relayed message regarding elevated heart rate. Waiting for call back.
--- NOTE | 2017-06-06 16:05 | NUR ---
Patients' v/s at this time 144/77, HR 155. Patient awake, less agitated at this time, she appears tired at this time. Kept comfortable. HOB elevated for comfort measures. RT continues to monitor patient, suctioned as needed. Kept on continuous 02 sat monitoring, on vent at prescribed settings. Waiting for MD to call back. Patient closely monitored at this time.
--- NOTE | 2017-06-06 16:40 | NUR ---
DR. Alfaro, H. called back, made him aware of patients' tachycardia and agitation, he ordered Tylenol 650 mg via GT Q 6 hrs as needed, he ordered to give IV BOLUS 1 liter of Normal saline now. Per Dr. Alfaro for any other concerns notify him beau. Noted and carried out.
[2017-06-06] MEDS ORDERED: IV NS 0.9% 1,000 ML BAG IV ONE (18:00)
--- NOTE | 2017-06-06 18:45 | NUR ---
Patient calm at this time, HR 137 now, abdomen was big, firm to touched. After turning pt side to side, she had BM, voiding freely, provided good suze care, positioned in bed. Patients' abdomen softer now, less agitation. Kept safe and comfortable. NS IV 1 LITER given. Patient closely monitored.
[2017-06-06 19:24] VITALS: BP 144/71
[2017-06-06] MEDS: FUROSEMIDE 20 MG/2 ML VIAL IV SCH (20:00)
[2017-06-06] MEDS: SENNOSIDES 8.6 MG TABLET GT SCH (21:00)
[2017-06-06] MEDS: MULTIVIT, IRON, MIN NO. 8, FA 1 TAB GT SCH (21:00)
[2017-06-07] MEDS: RENAL NOVASOURCE 1,000 ML BOTTLE GT PRN (05:09)
[2017-06-07] MEDS: POLYVINYL ALCOHOL 15 ML BOTTLE EACHEYE SCH ×4 (05:10→23:14)
[2017-06-07] MEDS: BACLOFEN (10 MG) 10 MG TABLET GT SCH ×2 (05:10→17:19)
[2017-06-07] MEDS: PREVACID (NF) 30 MG TAB GT SCH (05:10)
[2017-06-07] MEDS: ALBUTEROL FS 2.5 MG/0.5 ML VIAL.NEB NEB SCH ×2 (07:40→19:59)
[2017-06-07] MEDS: IPRATROPIUM NEB FS 0.5 MG/2.5 ML AMPUL.NEB IH SCH ×2 (07:40→19:59)
[2017-06-07 07:59] VITALS: BP 126/69
[2017-06-07] MEDS: NYSTATIN TOP POWDER 15 GM BOTTLE TP SCH ×2 (09:00→20:26)
[2017-06-07] MEDS: MIDODRINE HCL (5MG) 5 MG TABLET GT SCH ×2 (09:00→20:26)
[2017-06-07] MEDS: PROSTAT (PYXIS) 30 ML UDC GT SCH (09:53)
[2017-06-07] MEDS: FERROUS SULFATE - FOR SA ONLY 330 MG/7.5 ML UDC GT SCH ×2 (09:53→17:19)
[2017-06-07] MEDS: POTASSIUM CHLORIDE 20 MEQ POWDER PACKET GT SCH (09:53)
[2017-06-07] MEDS: LACTULOSE 20 G/30 ML UDC GT SCH (09:53)
[2017-06-07] MEDS: Z GUARD REMEDY 4 OZ OINT TP SCH ×2 (09:54→20:26)
[2017-06-07 19:38] VITALS: BP 115/62
[2017-06-07] MEDS: FUROSEMIDE 20 MG/2 ML VIAL IV SCH (20:00)
[2017-06-07] MEDS: MULTIVIT, IRON, MIN NO. 8, FA 1 TAB GT SCH (20:26)
[2017-06-07] MEDS: SENNOSIDES 8.6 MG TABLET GT SCH (21:16)
[2017-06-08] MEDS: BACLOFEN (10 MG) 10 MG TABLET GT SCH ×2 (05:04→17:33)
[2017-06-08] MEDS: POLYVINYL ALCOHOL 15 ML BOTTLE EACHEYE SCH ×4 (05:04→23:06)
[2017-06-08] MEDS: PREVACID (NF) 30 MG TAB GT SCH (05:04)
--- NOTE | 2017-06-08 06:16 | NUR ---
RT PT RECEIVED ON [facility] VENT WITH NOTED SETTING. TRACH PATENT AND SECURE. VENT PLUGGED IN TO RED OUTLET. ALARM SET AND AUDIBLE. AMBU BAG AT [facility]. NO SOB OR RESP DISTRESS NOTED ON SHIFT. Addendum: 06/08/17 at 0616 by SUJEY EDWARD RT Amended: Links added.
[2017-06-08 07:58] VITALS: BP 104/61
[2017-06-08] MEDS: ALBUTEROL FS 2.5 MG/0.5 ML VIAL.NEB NEB SCH ×2 (08:33→19:30)
[2017-06-08] MEDS: IPRATROPIUM NEB FS 0.5 MG/2.5 ML AMPUL.NEB IH SCH ×2 (08:33→19:30)
[2017-06-08] MEDS: FERROUS SULFATE - FOR SA ONLY 330 MG/7.5 ML UDC GT SCH ×2 (09:23→17:33)
[2017-06-08] MEDS: LACTULOSE 20 G/30 ML UDC GT SCH (09:23)
[2017-06-08] MEDS: POTASSIUM CHLORIDE 20 MEQ POWDER PACKET GT SCH (09:23)
[2017-06-08] MEDS: MIDODRINE HCL (5MG) 5 MG TABLET GT SCH ×2 (09:24→21:14)
[2017-06-08] MEDS: NYSTATIN TOP POWDER 15 GM BOTTLE TP SCH ×2 (09:24→21:15)
[2017-06-08] MEDS: Z GUARD REMEDY 4 OZ OINT TP SCH ×2 (09:24→21:15)
[2017-06-08] MEDS: PROSTAT (PYXIS) 30 ML UDC GT SCH (09:24)
[2017-06-08 20:08] VITALS: BP 117/55
[2017-06-08] MEDS: FUROSEMIDE 20 MG/2 ML VIAL IV SCH (21:00)
[2017-06-08] MEDS: MULTIVIT, IRON, MIN NO. 8, FA 1 TAB GT SCH (21:14)
[2017-06-08] MEDS: SENNOSIDES 8.6 MG TABLET GT SCH (21:15)
[2017-06-09] MEDS: POLYVINYL ALCOHOL 15 ML BOTTLE EACHEYE SCH ×4 (05:26→23:26)
[2017-06-09] MEDS: BACLOFEN (10 MG) 10 MG TABLET GT SCH ×2 (05:26→17:26)
[2017-06-09] MEDS: PREVACID (NF) 30 MG TAB GT SCH (05:26)
[2017-06-09] MEDS: RENAL NOVASOURCE 1,000 ML BOTTLE GT PRN (05:35)
[2017-06-09] MEDS: IPRATROPIUM NEB FS 0.5 MG/2.5 ML AMPUL.NEB IH SCH ×2 (07:33→20:15)
[2017-06-09] MEDS: ALBUTEROL FS 2.5 MG/0.5 ML VIAL.NEB NEB SCH ×2 (07:33→19:30)
--- NOTE | 2017-06-09 07:34 | NUR ---
PT. RECEIVED ON VENT SUPPORT VIA TRACH WITH PARAMETERS SET PER MD ORDER. B/S COURSE RHONCHI BILATERAL, SXN MOD. AMNT PALE YELLOW SEMI THICK SECRETIONS. [facility] VENT PLUGGED INTO RED OUTLET WITH ALARMS ON AND FUNCTIONING. CHIQUIUBAG + SPARE TRACH @ HOB. Addendum: 06/09/17 at 1653 by KYLIE LOW RT Amended: Links added.
[2017-06-09 07:44] VITALS: BP 101/56
[2017-06-09] MEDS: LACTULOSE 20 G/30 ML UDC GT SCH (08:24)
[2017-06-09] MEDS: POTASSIUM CHLORIDE 20 MEQ POWDER PACKET GT SCH (08:24)
[2017-06-09] MEDS: FERROUS SULFATE - FOR SA ONLY 330 MG/7.5 ML UDC GT SCH ×2 (08:24→16:25)
[2017-06-09] MEDS: MIDODRINE HCL (5MG) 5 MG TABLET GT SCH ×2 (08:25→20:59)
[2017-06-09] MEDS: NYSTATIN TOP POWDER 15 GM BOTTLE TP SCH ×2 (08:26→20:59)
[2017-06-09] MEDS: PROSTAT (PYXIS) 30 ML UDC GT SCH (08:26)
[2017-06-09] MEDS: Z GUARD REMEDY 4 OZ OINT TP SCH ×2 (08:26→20:59)
--- NOTE | 2017-06-09 12:15 | NUR ---
[place] ventilator alarming, RR at 45, HR 160's, O2 sat 92-94% at Fi02 35%, unable to obtain BP resident very stiff with her eyes wide open. Increased Fi02 to 100%, repositioned and suctioned resident but ineffective. Breathing treatment given and stayed with resident. After approximately 20 minutes patient slowly relaxed. At this time HR 125, RR24, O2 sat 100% at 35% F102. Continue to monitor patient.
[2017-06-09] MEDS: BISACODYL SUPP (10 MG) 10 MG/SUPP.RECT SUPP.RECT RC PRN (12:31)
[2017-06-09] MEDS: ACETAMINOPHEN 650 MG/20 ML UDC- FOR SA PATIENTS ONLY GT PRN (12:31)
--- NOTE | 2017-06-09 14:45 | NUR ---
Notified Dr. Macario resident with episode of severe shortness of breath x3 despite connected to a ventilator, RR >45, HR 165-172, unable to obtain B/P due to patient's stiffed extremities. New order given to do EKG, CBC, BMP and D/C albuterol tx. RT and FREIGHT CALLER remain at bedside. All other interventions such as suctioning, repositioning, raising HOB ineffective. HR steady at 160-165 beats/min. Orders noted and carried out.
--- NOTE | 2017-06-09 15:00 | NUR ---
Reported result of EKG (sinus tachycardia 161) to Dr. Macario. Informed MD that patient's condition remain the same, had x1 BM after suppository was given, HR remain in the high 160's. New order given to give Ativan 1 mg. Q 6 hours PRN for respiratory distress. Spoke with Judith (sister) informed her of patient's condition with new order for Ativan. Sister gave consent for Ativan administration.
[2017-06-09 15:30] LABS: BASOPHILS # (AUTO) 0.1 /CMM (0.0-0.2); BASOPHILS % (AUTO) 1.1 % (0.0-2.0); EOSINOPHILS % (AUTO) 2.6 % (0.0-6.0); HEMATOCRIT 30 % (33-45); HEMOGLOBIN 9.5 g/dL (11.5-14.8); LYMPHOCYTES % (AUTO) 31.2 % (20.0-44.0); MEAN CORPUSCULAR HEMOGLOBIN 24 PG (26.0-33.0); MEAN CORPUSCULAR HGB CONC 32 g/dl (31.0-36.0); MEAN CORPUSCULAR VOLUME 76 fL (82-100); MONOCYTES # (AUTO) 0.9 /CMM (0.1-1.30); MONOCYTES % (AUTO) 7.1 % (2.0-12.0); NEUTROPHILS # (AUTO) 7.5 /CMM (1.8-8.9); PLATELET COUNT (AUTO) 378 /CMM (150-450); RDW COEFFICIENT OF VARIATION 19.4 (11.5-15.0); RED BLOOD CELL COUNT(AUTO) 3.92 MIL/uL (4.0-5.2); WHITE BLOOD COUNT (AUTO) 12.8 K/uL (4.3-11.0)
[2017-06-09 15:48] LABS: CALCIUM, SERUM 10.5 mg/dL (8.5-10.1); CREATININE 0.6 mg/dL (0.6-1.3); POTASSIUM 4.5 mmol/L (3.5-5.1)
--- NOTE | 2017-06-09 16:30 | NUR ---
Ativan 1 mg IVP given, resident's HR and RR went down. V/S 96/62, HR120, RR 18, O2 sat 98% at 35%, MD Macario also notified of CBC (WBC 12.8) and BMP result. Also reported that during suctioning or when patient is coughing, she has secretions coming out from her mouth and nose which appears to be mixed with formula. No new order given. Resident more calm.
[2017-06-09] MEDS: LORAZEPAM INJ 2 MG/ML VIAL IVP PRN (17:19)
--- NOTE | 2017-06-09 18:16 | NUR ---
Resident's mother together with patient's granddaughter visited. Explained to her about what transpired earlier today with regards to episode of shortness of breath. Explained to Ms Bennett that this happened 3x this shift. Laboratory test and EKG were ordered, repositioning, tracheal suctioning breathing treatment are ineffective. Ativan was given, she responded and slowly calm down, RR 14-16, HR 98. Mother signed consent for Ativan.
[2017-06-09 20:01] VITALS: BP 97/62
[2017-06-09] MEDS: MULTIVIT, IRON, MIN NO. 8, FA 1 TAB GT SCH (20:59)
[2017-06-09] MEDS: SENNOSIDES 8.6 MG TABLET GT SCH (21:00)
[2017-06-09] MEDS: FUROSEMIDE 20 MG/2 ML VIAL IV SCH (21:05)
[2017-06-09] MEDS: LACTULOSE 10 G/15 ML UDC (PYXIS) GT PRN (23:27)
[2017-06-10] MEDS: RENAL NOVASOURCE 1,000 ML BOTTLE GT PRN (05:28)
[2017-06-10] MEDS: POLYVINYL ALCOHOL 15 ML BOTTLE EACHEYE SCH ×4 (05:28→23:49)
[2017-06-10] MEDS: BACLOFEN (10 MG) 10 MG TABLET GT SCH ×2 (05:28→17:00)
[2017-06-10] MEDS: PREVACID (NF) 30 MG TAB GT SCH (05:28)
--- NOTE | 2017-06-10 07:03 | NUR ---
Pt stable during the night no episodes of respiratory distress noted.Pt had good urine output still on Lasix 20mg IVP.
[2017-06-10] MEDS: ALBUTEROL FS 2.5 MG/0.5 ML VIAL.NEB NEB SCH ×2 (07:12→19:25)
[2017-06-10] MEDS: IPRATROPIUM NEB FS 0.5 MG/2.5 ML AMPUL.NEB IH SCH ×2 (07:13→19:25)
[2017-06-10 07:33] VITALS: BP 114/76
[2017-06-10] MEDS: KCL 20 MEQ/15 ML GT SCH (09:03)
[2017-06-10] MEDS: FERROUS SULFATE - FOR SA ONLY 330 MG/7.5 ML UDC GT SCH ×2 (09:03→16:59)
[2017-06-10] MEDS: LACTULOSE 20 G/30 ML UDC GT SCH (09:03)
[2017-06-10] MEDS: Z GUARD REMEDY 4 OZ OINT TP SCH ×2 (09:04→20:48)
[2017-06-10] MEDS: PROSTAT (PYXIS) 30 ML UDC GT SCH (09:04)
[2017-06-10] MEDS: NYSTATIN TOP POWDER 15 GM BOTTLE TP SCH ×2 (09:04→20:48)
[2017-06-10] MEDS: MIDODRINE HCL (5MG) 5 MG TABLET GT SCH ×2 (09:04→20:48)
[2017-06-10] MEDS: LACTULOSE 10 G/15 ML UDC (PYXIS) GT PRN (16:55)
--- NOTE | 2017-06-10 19:40 | NUR ---
PT RECEIVED TRACHED WITH DOCUMENTED [facility] VENT SETTINGS. PT IS COMFORTABLE AND NO RESP DISTRESS IS NOTED. PT SUCTIONED Q2 + PRN. MECHANICAL VENTILATOR PLUGGED INTO RED OUTLET. ALARMS ARE SET AND AUDIBLE THROUGH OUT SUBACUTE UNIT . AMBU BAG AT BEDSIDE. WILL CONTINUE TO MONITOR. Addendum: 06/10/17 at 1941 by ELVIRA CHEN RT Amended: Links added.
--- NOTE | 2017-06-10 19:41 | NUR ---
PT RECEIVED TRACHED WITH DOCUMENTED [facility] VENT SETTINGS. PT IS COMFORTABLE AND NO RESP DISTRESS IS NOTED. PT SUCTIONED Q2 + PRN. MECHANICAL VENTILATOR PLUGGED INTO RED OUTLET. ALARMS ARE SET AND AUDIBLE THROUGH OUT SUBACUTE UNIT . AMBU BAG AT BEDSIDE. WILL CONTINUE TO MONITOR. Addendum: 06/10/17 at 1941 by ELVIRA CHEN RT Amended: Links added.
[2017-06-10] MEDS: MULTIVIT, IRON, MIN NO. 8, FA 1 TAB GT SCH (20:48)
[2017-06-10] MEDS: FUROSEMIDE 20 MG/2 ML VIAL IV SCH (20:52)
[2017-06-10] MEDS: SENNOSIDES 8.6 MG TABLET GT SCH (21:08)
[2017-06-10 21:44] VITALS: BP 109/75
[2017-06-11] MEDS: LORAZEPAM INJ 2 MG/ML VIAL IVP PRN (03:14)
[2017-06-11] MEDS: PREVACID (NF) 30 MG TAB GT SCH (05:27)
[2017-06-11] MEDS: BACLOFEN (10 MG) 10 MG TABLET GT SCH ×2 (05:27→17:54)
[2017-06-11] MEDS: RENAL NOVASOURCE 1,000 ML BOTTLE GT PRN (05:27)
[2017-06-11] MEDS: POLYVINYL ALCOHOL 15 ML BOTTLE EACHEYE SCH ×4 (05:27→23:41)
--- NOTE | 2017-06-11 06:29 | NUR ---
0330 Pt had episodes of agitation,increased HR to 150's.Repositioned and make comfortable not effective.Ativan 1mg IVPB given as ordered.0430 asleep comfortable,HR 95.Will continue to monitor.
[2017-06-11] MEDS: IPRATROPIUM NEB FS 0.5 MG/2.5 ML AMPUL.NEB IH SCH ×2 (07:09→19:30)
[2017-06-11] MEDS: ALBUTEROL FS 2.5 MG/0.5 ML VIAL.NEB NEB SCH ×2 (07:09→19:30)
[2017-06-11 07:27] VITALS: BP 104/68
[2017-06-11 07:52] LABS: CALCIUM, SERUM 10.6 mg/dL (8.5-10.1); CREATININE 0.5 mg/dL (0.6-1.3); POTASSIUM 3.3 mmol/L (3.5-5.1)
[2017-06-11] MEDS: LACTULOSE 20 G/30 ML UDC GT SCH (09:10)
[2017-06-11] MEDS: KCL 20 MEQ/15 ML GT SCH (09:10)
[2017-06-11] MEDS: FERROUS SULFATE - FOR SA ONLY 330 MG/7.5 ML UDC GT SCH ×2 (09:10→17:54)
[2017-06-11] MEDS: Z GUARD REMEDY 4 OZ OINT TP SCH ×2 (09:11→21:15)
[2017-06-11] MEDS: NYSTATIN TOP POWDER 15 GM BOTTLE TP SCH ×2 (09:11→21:15)
[2017-06-11] MEDS: MIDODRINE HCL (5MG) 5 MG TABLET GT SCH ×2 (09:11→21:15)
[2017-06-11] MEDS: PROSTAT (PYXIS) 30 ML UDC GT SCH (09:11)
--- NOTE | 2017-06-11 12:05 | NUR ---
RT NOTE PT IN STABLE CONDITION. PT MECHANICALLY VENTILATED VIA LTV 1200 VENT. SETTINGS PRESCRIBED. ALARMS SET PER PROTOCOL AND AUDIBLE. VENT PLUGGED IN TO RED OUTLET. AMBU BAG AT BED SIDE. BILATERAL CHEST RISE NOTED. SHILPI HEARD UPON AUSCULTATION. MODERATE THICK PALE YELLOW SECTRETIONS FOUND UPON SUCTION. NO DISTRESS NOTED. WILL CONTINUE TO MONITOR. Addendum: 06/11/17 at 1205 by BONNIE HAYNES RT Amended: Links added.
[2017-06-11] MEDS ORDERED: POTASSIUM CHLORIDE 20 MEQ GT ONE (13:58)
[2017-06-11 20:04] VITALS: BP 112/70
[2017-06-11] MEDS: FUROSEMIDE 20 MG/2 ML VIAL IV SCH (20:48)
[2017-06-11] MEDS: MULTIVIT, IRON, MIN NO. 8, FA 1 TAB GT SCH (21:15)
[2017-06-11] MEDS: SENNOSIDES 8.6 MG TABLET GT SCH (21:15)
--- NOTE | 2017-06-12 03:02 | NUR ---
PT REC'D TRACHED ON [facility] VENT SETTINGS CHARTED. PT IS COMFORTABLE AND NO RESP DISTRESS IS NOTED. [facility] VENT PLUGGED INTO RED OUTLET. ALARMS ARE SET AND AUDIBLE. ALEXIS JUAREZ AT BEDSIDE. WILL CONTINUE TO MONITOR. Addendum: 06/12/17 at 0505 by CHIRAG MENDEZ RT Amended: Links added.
[2017-06-12] MEDS: LACTULOSE 10 G/15 ML UDC (PYXIS) GT PRN (05:28)
[2017-06-12] MEDS: POLYVINYL ALCOHOL 15 ML BOTTLE EACHEYE SCH ×4 (05:28→23:25)
[2017-06-12] MEDS: BACLOFEN (10 MG) 10 MG TABLET GT SCH ×2 (05:28→18:24)
[2017-06-12] MEDS: PREVACID (NF) 30 MG TAB GT SCH (05:28)
[2017-06-12] MEDS: RENAL NOVASOURCE 1,000 ML BOTTLE GT PRN (05:28)
[2017-06-12] MEDS: IPRATROPIUM NEB FS 0.5 MG/2.5 ML AMPUL.NEB IH SCH ×2 (08:18→20:16)
[2017-06-12] MEDS: KCL 20 MEQ/15 ML GT SCH (08:43)
[2017-06-12] MEDS: FERROUS SULFATE - FOR SA ONLY 330 MG/7.5 ML UDC GT SCH ×2 (08:43→17:00)
[2017-06-12] MEDS: LACTULOSE 20 G/30 ML UDC GT SCH (08:43)
[2017-06-12] MEDS: PROSTAT (PYXIS) 30 ML UDC GT SCH (08:47)
[2017-06-12] MEDS: MIDODRINE HCL (5MG) 5 MG TABLET GT SCH ×2 (08:47→20:42)
[2017-06-12] MEDS: NYSTATIN TOP POWDER 15 GM BOTTLE TP SCH ×2 (09:00→20:43)
[2017-06-12] MEDS: Z GUARD REMEDY 4 OZ OINT TP SCH ×2 (09:00→20:43)
--- NOTE | 2017-06-12 11:10 | NUR ---
Asked Dr. Nichole Dugan to review patient's medications if she wants to continue Lasix IV, according to Dr. Dugan she will come and see patient on Wednesday, review the medications and ordered BMP for Wednesday. Orders noted and carried out.
[2017-06-12 20:05] VITALS: BP 93/43
[2017-06-12] MEDS: MULTIVIT, IRON, MIN NO. 8, FA 1 TAB GT SCH (20:42)
[2017-06-12] MEDS: FUROSEMIDE 20 MG/2 ML VIAL IV SCH (21:00)
[2017-06-12] MEDS: SENNOSIDES 8.6 MG TABLET GT SCH (21:34)
--- NOTE | 2017-06-13 00:01 | NUR ---
Pt. Agitated with episode of desaturation, spasm, increase MW=021 RR=34 SP02 of 87-90% suctioning done and repositioned for comfort.
[2017-06-13] MEDS: LORAZEPAM INJ 2 MG/ML VIAL IVP PRN (00:18)
--- NOTE | 2017-06-13 00:19 | NUR ---
Pt. remained agitated with spasm. NW=563q RR=34 SPO2 88-92% PRN Ativan given. will continue to monitor.
--- NOTE | 2017-06-13 02:30 | NUR ---
PRN Ativan effective. pt resting NW=113 RR=20 pt asleep will continue to monitor
--- NOTE | 2017-06-13 02:57 | NUR ---
PT REC'D TRACHED ON [facility] VENT SETTINGS CHARTED. PT IS COMFORTABLE AND NO RESP DISTRESS IS NOTED. [facility] VENT PLUGGED INTO RED OUTLET. ALARMS ARE SET AND AUDIBLE. ALEXIS JUAREZ AT BEDSIDE. WILL CONTINUE TO MONITOR. Addendum: 06/13/17 at 0624 by CHIRAG MENDEZ RT Amended: Links added.
[2017-06-13] MEDS: RENAL NOVASOURCE 1,000 ML BOTTLE GT PRN (04:24)
[2017-06-13] MEDS: LACTULOSE 10 G/15 ML UDC (PYXIS) GT PRN ×2 (04:24→17:52)
[2017-06-13] MEDS: PREVACID (NF) 30 MG TAB GT SCH (05:17)
[2017-06-13] MEDS: BACLOFEN (10 MG) 10 MG TABLET GT SCH ×2 (05:17→17:49)
[2017-06-13] MEDS: POLYVINYL ALCOHOL 15 ML BOTTLE EACHEYE SCH ×3 (05:17→17:49)
[2017-06-13] MEDS: IPRATROPIUM NEB FS 0.5 MG/2.5 ML AMPUL.NEB IH SCH ×2 (07:40→20:01)
[2017-06-13 07:42] VITALS: BP 99/68
[2017-06-13] MEDS: FERROUS SULFATE - FOR SA ONLY 330 MG/7.5 ML UDC GT SCH ×2 (09:35→17:49)
[2017-06-13] MEDS: LACTULOSE 20 G/30 ML UDC GT SCH (09:35)
[2017-06-13] MEDS: Z GUARD REMEDY 4 OZ OINT TP SCH ×2 (09:36→21:08)
[2017-06-13] MEDS: MIDODRINE HCL (5MG) 5 MG TABLET GT SCH ×2 (09:36→21:08)
[2017-06-13] MEDS: NYSTATIN TOP POWDER 15 GM BOTTLE TP SCH ×2 (09:36→21:08)
[2017-06-13] MEDS: PROSTAT (PYXIS) 30 ML UDC GT SCH (09:36)
[2017-06-13] MEDS: KCL 20 MEQ/15 ML GT SCH (09:36)
[2017-06-13] MEDS: BISACODYL SUPP (10 MG) 10 MG/SUPP.RECT SUPP.RECT RC PRN (17:52)
[2017-06-13 19:34] VITALS: BP 107/65
[2017-06-13] MEDS: SENNOSIDES 8.6 MG TABLET GT SCH (21:08)
[2017-06-13] MEDS: MULTIVIT, IRON, MIN NO. 8, FA 1 TAB GT SCH (21:08)
[2017-06-13] MEDS: FUROSEMIDE 20 MG/2 ML VIAL IV SCH (21:57)
[2017-06-14] MEDS: POLYVINYL ALCOHOL 15 ML BOTTLE EACHEYE SCH ×5 (00:10→23:44)
[2017-06-14] MEDS: BISACODYL SUPP (10 MG) 10 MG/SUPP.RECT SUPP.RECT RC PRN (04:38)
[2017-06-14] MEDS: PREVACID (NF) 30 MG TAB GT SCH (05:57)
[2017-06-14] MEDS: BACLOFEN (10 MG) 10 MG TABLET GT SCH ×2 (05:57→17:18)
[2017-06-14] MEDS: IPRATROPIUM NEB FS 0.5 MG/2.5 ML AMPUL.NEB IH SCH ×2 (07:24→19:30)
[2017-06-14 07:48] VITALS: BP 85/51
[2017-06-14 08:03] LABS: CALCIUM, SERUM 10.4 mg/dL (8.5-10.1); CREATININE 0.5 mg/dL (0.6-1.3); POTASSIUM 3.9 mmol/L (3.5-5.1)
--- NOTE | 2017-06-14 08:57 | NUR ---
Seen by Dr. Dugan. Relayed BMP result to her. Dr. Dugan ordered to AMOL Sinha.
[2017-06-14] MEDS: FERROUS SULFATE - FOR SA ONLY 330 MG/7.5 ML UDC GT SCH ×2 (09:17→16:39)
[2017-06-14] MEDS: LACTULOSE 20 G/30 ML UDC GT SCH (09:17)
[2017-06-14] MEDS: KCL 20 MEQ/15 ML GT SCH (09:17)
[2017-06-14] MEDS: Z GUARD REMEDY 4 OZ OINT TP SCH ×2 (09:18→21:09)
[2017-06-14] MEDS: NYSTATIN TOP POWDER 15 GM BOTTLE TP SCH ×2 (09:18→21:09)
[2017-06-14] MEDS: PROSTAT (PYXIS) 30 ML UDC GT SCH (09:18)
[2017-06-14] MEDS: MIDODRINE HCL (5MG) 5 MG TABLET GT SCH ×2 (09:20→21:00)
[2017-06-14] MEDS: RENAL NOVASOURCE 1,000 ML BOTTLE GT PRN (16:48)
[2017-06-14 19:30] VITALS: BP 124/77
[2017-06-14] MEDS: SENNOSIDES 8.6 MG TABLET GT SCH (21:09)
[2017-06-14] MEDS: MULTIVIT, IRON, MIN NO. 8, FA 1 TAB GT SCH (21:09)
[2017-06-15] MEDS: BACLOFEN (10 MG) 10 MG TABLET GT SCH ×2 (05:37→17:20)
[2017-06-15] MEDS: PREVACID (NF) 30 MG TAB GT SCH (05:37)
[2017-06-15] MEDS: POLYVINYL ALCOHOL 15 ML BOTTLE EACHEYE SCH ×3 (05:37→17:20)
[2017-06-15 07:40] VITALS: BP 116/71
--- NOTE | 2017-06-15 07:47 | NUR ---
Social Service Section of [facility] completed (2nd quarter). Resident is non communicative. She opens her eyes but cannot track. Sister Judith and mother Sabrina (her conservator) are involved in her care. Sister visits frequently. Resident was seen by industrial security analyst Dr. Gómez on 06/30/2016 and is due for her annual exam. Dr. Gómez to see the resident this month. Dr. Monsivais (envelope folding machine operator) aware that resident is due for her tri-monthly checkup as well. She was seen by Dr. Joshua VILLARREAL for a dental cleaning on 03/22/2017. Resident was placed on the ventilator on 05/19/2017.
[2017-06-15] MEDS: IPRATROPIUM NEB FS 0.5 MG/2.5 ML AMPUL.NEB IH SCH ×2 (08:25→20:02)
[2017-06-15] MEDS: FERROUS SULFATE - FOR SA ONLY 330 MG/7.5 ML UDC GT SCH ×2 (08:55→16:34)
[2017-06-15] MEDS: KCL 20 MEQ/15 ML GT SCH (08:55)
[2017-06-15] MEDS: LACTULOSE 20 G/30 ML UDC GT SCH (08:55)
[2017-06-15] MEDS: Z GUARD REMEDY 4 OZ OINT TP SCH ×2 (08:56→21:05)
[2017-06-15] MEDS: PROSTAT (PYXIS) 30 ML UDC GT SCH (08:56)
[2017-06-15] MEDS: MIDODRINE HCL (5MG) 5 MG TABLET GT SCH ×2 (08:56→21:05)
[2017-06-15] MEDS: NYSTATIN TOP POWDER 15 GM BOTTLE TP SCH ×2 (08:56→21:05)
--- NOTE | 2017-06-15 10:15 | NUR ---
Seen by Dr. Macario. Received order to decrease FiO2 to 35%. Pt now on vent setting AC 12 VT 500 FiO2 35% Peep +5. Pt tolerating well.
[2017-06-15 19:44] VITALS: BP 106/77
[2017-06-15] MEDS: SENNOSIDES 8.6 MG TABLET GT SCH (21:05)
[2017-06-15] MEDS: MULTIVIT, IRON, MIN NO. 8, FA 1 TAB GT SCH (21:05)
[2017-06-16] MEDS: BACLOFEN (10 MG) 10 MG TABLET GT SCH ×2 (06:03→18:26)
[2017-06-16] MEDS: POLYVINYL ALCOHOL 15 ML BOTTLE EACHEYE SCH ×4 (06:03→18:25)
[2017-06-16] MEDS: PREVACID (NF) 30 MG TAB GT SCH (06:03)
[2017-06-16] MEDS: IPRATROPIUM NEB FS 0.5 MG/2.5 ML AMPUL.NEB IH SCH ×2 (07:41→19:56)
[2017-06-16 07:43] VITALS: BP 120/64
[2017-06-16] MEDS: Z GUARD REMEDY 4 OZ OINT TP SCH ×2 (09:00→20:05)
[2017-06-16] MEDS: KCL 20 MEQ/15 ML GT SCH (09:00)
[2017-06-16] MEDS: NYSTATIN TOP POWDER 15 GM BOTTLE TP SCH (09:00)
[2017-06-16] MEDS: PROSTAT (PYXIS) 30 ML UDC GT SCH (09:00)
[2017-06-16] MEDS: LACTULOSE 20 G/30 ML UDC GT SCH (09:00)
[2017-06-16] MEDS: MIDODRINE HCL (5MG) 5 MG TABLET GT SCH ×2 (09:00→20:05)
[2017-06-16] MEDS: FERROUS SULFATE - FOR SA ONLY 330 MG/7.5 ML UDC GT SCH ×2 (09:00→17:00)
[2017-06-16] MEDS: ONDANSETRON 4 MG TAB.RAPDIS GT PRN (13:03)
--- NOTE | 2017-06-16 14:00 | NUR ---
Patient vomited x 2, noted milk content vomitus, HOB elevated to prevent aspiration. Noted abdomen big and firm, last BM yesterday, routine lactulose. Zofran 4 mg via GT given as needed. Charge nurse notified DR. Macario and he ordered chest x-ray. Patient closely monitored.
--- NOTE | 2017-06-16 15:00 | NUR ---
Resident with episode of vomiting x1, suctioned trach and mouth, noted to have presence of formula content in the tracheal secretions. Dr. Macario notified chest Xray ordered. Maintain HOB elevated. Frequent visual rounds done.
--- NOTE | 2017-06-16 15:00 | NUR ---
Patient resting comfortably at this time, no agitation, no nausea and vomiting at this time. Kept HOB elevated at all times. on vent, tolerating well, calm at this time, no agitation. Abdomen softer at this time. Patient closely monitored.
[2017-06-16] MEDS: RENAL NOVASOURCE 1,000 ML BOTTLE GT PRN (18:31)
[2017-06-16] MEDS: LACTULOSE 10 G/15 ML UDC (PYXIS) GT PRN (20:05)
[2017-06-16] MEDS: HYDROGEN PEROXIDE 480 ML BOTTLE TP SCH (20:05)
[2017-06-16] MEDS: MULTIVIT, IRON, MIN NO. 8, FA 1 TAB GT SCH (20:05)
[2017-06-16 20:07] VITALS: BP 110/62
[2017-06-16] MEDS: SENNOSIDES 8.6 MG TABLET GT SCH (21:37)
[2017-06-16] MEDS: LORAZEPAM INJ 2 MG/ML VIAL IVP PRN (22:38)
--- NOTE | 2017-06-16 22:39 | NUR ---
Pt noted with spasm,increased respiration to 40's, HR 150'shyperventilating,desats to 87% suctioned,fio2 goes up to 95%,repositioned comfortably still not effective.Ativan 1mg IV given slow IV push.Will continue to monitor.All needs attended.
[2017-06-17] MEDS: POLYVINYL ALCOHOL 15 ML BOTTLE EACHEYE SCH ×5 (00:08→23:33)
[2017-06-17] MEDS: BACLOFEN (10 MG) 10 MG TABLET GT SCH ×2 (05:01→17:24)
[2017-06-17] MEDS: PREVACID (NF) 30 MG TAB GT SCH (05:01)
[2017-06-17] MEDS: BISACODYL SUPP (10 MG) 10 MG/SUPP.RECT SUPP.RECT RC PRN (05:06)
[2017-06-17] MEDS: IPRATROPIUM NEB FS 0.5 MG/2.5 ML AMPUL.NEB IH SCH ×2 (07:43→20:23)
[2017-06-17 07:49] VITALS: BP 123/91
[2017-06-17] MEDS: LACTULOSE 20 G/30 ML UDC GT SCH (08:50)
[2017-06-17] MEDS: KCL 20 MEQ/15 ML GT SCH (08:50)
[2017-06-17] MEDS: FERROUS SULFATE - FOR SA ONLY 330 MG/7.5 ML UDC GT SCH ×2 (08:50→17:24)
[2017-06-17] MEDS: MIDODRINE HCL (5MG) 5 MG TABLET GT SCH ×2 (08:51→20:11)
[2017-06-17] MEDS: HYDROGEN PEROXIDE 480 ML BOTTLE TP SCH ×2 (08:51→20:11)
[2017-06-17] MEDS: PROSTAT (PYXIS) 30 ML UDC GT SCH (08:51)
[2017-06-17] MEDS: Z GUARD REMEDY 4 OZ OINT TP SCH ×2 (08:51→20:11)
[2017-06-17] MEDS: NYSTATIN TOP POWDER 15 GM BOTTLE TP SCH ×2 (09:00→20:11)
--- NOTE | 2017-06-17 16:06 | NUR ---
RECEIVED PT TRACH ON VENT SETTINGS NOTED. ALARMS WERE CHECKED AND AUDIBLE. ANIMAL GENETICIST DONE AND TRACH IS SECURE. VENT PLUGGED IN RED OUTLET. AMBU BAG AT BEDSIDE. SX MOD THICK PAL YELLOW SECRETIONS. NO RESP DISTRESS NOTED AT THIS TIME, WILL CONTINUE TO MONITOR T/O SHIFT.
--- NOTE | 2017-06-17 19:00 | NUR ---
Relayed CXR result to NIKI Pabon. No new order.
[2017-06-17 19:50] VITALS: BP 117/78
[2017-06-17] MEDS: MULTIVIT, IRON, MIN NO. 8, FA 1 TAB GT SCH (20:11)
[2017-06-17] MEDS: SENNOSIDES 8.6 MG TABLET GT SCH (21:01)
[2017-06-18] MEDS: LACTULOSE 10 G/15 ML UDC (PYXIS) GT PRN ×2 (05:16→20:29)
[2017-06-18] MEDS: RENAL NOVASOURCE 1,000 ML BOTTLE GT PRN (05:16)
[2017-06-18] MEDS: BACLOFEN (10 MG) 10 MG TABLET GT SCH ×2 (05:16→18:08)
[2017-06-18] MEDS: POLYVINYL ALCOHOL 15 ML BOTTLE EACHEYE SCH ×4 (05:16→23:03)
[2017-06-18] MEDS: PREVACID (NF) 30 MG TAB GT SCH (05:16)
[2017-06-18] MEDS: IPRATROPIUM NEB FS 0.5 MG/2.5 ML AMPUL.NEB IH SCH ×2 (07:29→15:24)
[2017-06-18 07:40] VITALS: BP 120/89
[2017-06-18] MEDS: FERROUS SULFATE - FOR SA ONLY 330 MG/7.5 ML UDC GT SCH ×2 (08:50→16:47)
[2017-06-18] MEDS: HYDROGEN PEROXIDE 480 ML BOTTLE TP SCH ×2 (08:50→20:29)
[2017-06-18] MEDS: Z GUARD REMEDY 4 OZ OINT TP SCH ×2 (08:50→20:29)
[2017-06-18] MEDS: NYSTATIN TOP POWDER 15 GM BOTTLE TP SCH ×2 (08:50→20:29)
[2017-06-18] MEDS: PROSTAT (PYXIS) 30 ML UDC GT SCH (08:50)
[2017-06-18] MEDS: LACTULOSE 20 G/30 ML UDC GT SCH (08:50)
[2017-06-18] MEDS: MIDODRINE HCL (5MG) 5 MG TABLET GT SCH ×2 (08:50→20:29)
[2017-06-18] MEDS: KCL 20 MEQ/15 ML GT SCH (08:50)
--- NOTE | 2017-06-18 09:53 | NUR ---
SW has been trying to reach the resident's sister Judith since Wednesday06/15/2017 to see if she is available to attend today's IDT meeting. However, mental health social worker has been unsuccessful. SW attempted to call resident's mother Sabrina to see if she wants to attend the IDT meeting however she did not answer. LIZANDRO left a message to call her back if she is interested in attending.
--- NOTE | 2017-06-18 14:23 | NUR ---
INTERDISCIPLINARY PLAN OF CARE CONFERENCE was held today. Resident's sister or mother were unable to attend. Dr. Macario and the interdisciplinary team reviewed the current plan of care in detail. Orders were reviewed and no new orders were given.
--- NOTE | 2017-06-18 14:53 | NUR ---
IDT meeting held, Dr. Macario seen result of chest XRAY done on 06/16/2017. NNO given.
[2017-06-18 20:00] VITALS: BP 112/66
[2017-06-18] MEDS: MULTIVIT, IRON, MIN NO. 8, FA 1 TAB GT SCH (20:29)
[2017-06-18] MEDS: SENNOSIDES 8.6 MG TABLET GT SCH (21:03)
[2017-06-19] MEDS: BACLOFEN (10 MG) 10 MG TABLET GT SCH ×2 (05:07→18:21)
[2017-06-19] MEDS: PREVACID (NF) 30 MG TAB GT SCH (05:07)
[2017-06-19] MEDS: RENAL NOVASOURCE 1,000 ML BOTTLE GT PRN (05:07)
[2017-06-19] MEDS: POLYVINYL ALCOHOL 15 ML BOTTLE EACHEYE SCH ×4 (05:07→23:00)
[2017-06-19] MEDS: IPRATROPIUM NEB FS 0.5 MG/2.5 ML AMPUL.NEB IH SCH ×2 (07:18→19:30)
[2017-06-19 07:49] VITALS: BP 125/69
[2017-06-19] MEDS: FERROUS SULFATE - FOR SA ONLY 330 MG/7.5 ML UDC GT SCH ×2 (09:47→17:00)
[2017-06-19] MEDS: PROSTAT (PYXIS) 30 ML UDC GT SCH (09:47)
[2017-06-19] MEDS: NYSTATIN TOP POWDER 15 GM BOTTLE TP SCH ×2 (09:47→20:25)
[2017-06-19] MEDS: MIDODRINE HCL (5MG) 5 MG TABLET GT SCH ×2 (09:47→20:25)
[2017-06-19] MEDS: LACTULOSE 20 G/30 ML UDC GT SCH (09:47)
[2017-06-19] MEDS: HYDROGEN PEROXIDE 480 ML BOTTLE TP SCH ×2 (09:47→20:25)
[2017-06-19] MEDS: KCL 20 MEQ/15 ML GT SCH (09:47)
[2017-06-19] MEDS: Z GUARD REMEDY 4 OZ OINT TP SCH ×2 (09:48→20:25)
[2017-06-19 20:01] VITALS: BP 91/47
[2017-06-19] MEDS: MULTIVIT, IRON, MIN NO. 8, FA 1 TAB GT SCH (20:25)
[2017-06-19] MEDS: SENNOSIDES 8.6 MG TABLET GT SCH (21:11)
[2017-06-20] MEDS: POLYVINYL ALCOHOL 15 ML BOTTLE EACHEYE SCH ×4 (05:30→23:46)
[2017-06-20] MEDS: PREVACID (NF) 30 MG TAB GT SCH (05:30)
[2017-06-20] MEDS: RENAL NOVASOURCE 1,000 ML BOTTLE GT PRN (05:30)
[2017-06-20] MEDS: BACLOFEN (10 MG) 10 MG TABLET GT SCH ×2 (05:30→17:08)
[2017-06-20 07:33] VITALS: BP 100/68
[2017-06-20] MEDS: IPRATROPIUM NEB FS 0.5 MG/2.5 ML AMPUL.NEB IH SCH ×2 (08:01→20:17)
[2017-06-20] MEDS: LACTULOSE 20 G/30 ML UDC GT SCH (08:42)
[2017-06-20] MEDS: KCL 20 MEQ/15 ML GT SCH (08:42)
[2017-06-20] MEDS: FERROUS SULFATE - FOR SA ONLY 330 MG/7.5 ML UDC GT SCH ×2 (08:42→17:07)
[2017-06-20] MEDS: PROSTAT (PYXIS) 30 ML UDC GT SCH (08:43)
[2017-06-20] MEDS: MIDODRINE HCL (5MG) 5 MG TABLET GT SCH ×2 (08:43→20:55)
[2017-06-20] MEDS: NYSTATIN TOP POWDER 15 GM BOTTLE TP SCH ×2 (09:00→20:55)
[2017-06-20] MEDS: HYDROGEN PEROXIDE 480 ML BOTTLE TP SCH ×2 (09:00→20:55)
[2017-06-20] MEDS: Z GUARD REMEDY 4 OZ OINT TP SCH ×2 (09:00→20:55)
--- NOTE | 2017-06-20 11:03 | NUR ---
Resident noted to have redness in the R thigh, warm to touch, V/S 100/68, 100%, RR 15, 68 T 95.6. In the past resident was treated with Atarax 25mg Q 8 hours for [address] Macario who said Coby Pabon, TASSEL SNIPPER will take a look at it tomorrow. Endorsed.
--- NOTE | 2017-06-20 11:25 | NUR ---
Spoke with resident's mother Sabrina informing her of the redness noted in the R thigh and CASH APPLICATIONS COORDINATOR will assess it tomorrow for treatment order. Appreciated the update given, also made her aware that patient has been given Ativan 1mg. 4 times since 06/09/16 when it was first ordered due to episode of shortness of breath. Resident's mother is concern about the swelling in the patient's extremities and would like to speak with the doctor to discuss patient's renal function. Suggested to attend the IDT and she can ask the physician in attendance. She said " If I don't have my surgery at that time, I will attend", Meanwhile endorsed to notify attending MD of family's concern.
--- NOTE | 2017-06-20 15:40 | NUR ---
RT NOTE: MONTHLY TRACH CHANGE DONE. NO REDNESS AND A SMALL AMOUNT OF BLOOD NOTED. PATIENT TOLERATED WELL AND NO DISTRESS NOTED. AMBU BAG AND NEW TRACH AT [facility].
--- NOTE | 2017-06-20 17:05 | NUR ---
RT NOTE: PATIENT RECEIVED WITH SHILEY 6 XL DISTAL CUFFED TRACH ON HT70 VENT. MONTHLY TRACH CHANGE DONE. NO REDNESS AND SMALL AMOUNT OF BLOOD NOTED. PATIENT TOLERATED WELL WITH NO DISTRESS NOTED. VENT ALARMS VERIFIED AND AUDIBLE. SETTINGS PER MD ORDER. SUCTIONED AND LAVAGED LARGE AMOUNTS OF THICK JOHN SECRETIONS. AMBU BAG AND NEW TRACH AT [facility].
[2017-06-20] MEDS ORDERED: VANCOMYCIN 1 GM in IV D5W 250ml IV ONE (18:30)
--- NOTE | 2017-06-20 18:32 | NUR ---
Makeda Guzmán NP ID assessed R thigh redness. Gave an order to start Vancomycin 1 gm IV with labs and doppler US in AM. Order noted and carried out. Order faxed to pharmacy.
--- NOTE | 2017-06-20 19:17 | NUR ---
Notified resident's mother, Sabrina regarding new order of Vancomycin for cellulitis of the R leg, CBC, BMP and doppler US of the R leg in AM. Spoke with Karen from [employer], they will send the dosing once it is calculated by pharmacist. Endorsed.
[2017-06-20 20:05] VITALS: BP 108/83
--- NOTE | 2017-06-20 20:30 | NUR ---
RN NOTES Received pharmacy recommendation for Vancomycin and received new order from Makeda, Vancomycin 1gm IVP Q24hr for cellulitis right leg, vanco trough & BUN/Cr on 06/23 (Wednesday) @1730, noted and carried out.
[2017-06-20] MEDS: MULTIVIT, IRON, MIN NO. 8, FA 1 TAB GT SCH (20:55)
[2017-06-20] MEDS: SENNOSIDES 8.6 MG TABLET GT SCH (22:00)
[2017-06-21] MEDS: LORAZEPAM INJ 2 MG/ML VIAL IVP PRN (03:20)
--- NOTE | 2017-06-21 03:20 | NUR ---
RN NOTES Noted pt restless and agitated with HR starting at 115 and tachypneic, RR 25. Repositioned with no improvement. HR escalated to 145, RR 32, B/P 122/72, T 98.4, O2sat 99%. Noted agitation worsening. Ativan 1mg IVP given as ordered. Will continue to monitor closely.
--- NOTE | 2017-06-21 04:20 | NUR ---
RN NOTES Pt appears to be calming down. No SOB or respiratory distress. Kept comfortable in bed. HR decreased to 122 and RR 13. Will continue to monitor closely.
[2017-06-21] MEDS: BACLOFEN (10 MG) 10 MG TABLET GT SCH ×2 (05:53→18:57)
[2017-06-21] MEDS: RENAL NOVASOURCE 1,000 ML BOTTLE GT PRN (05:53)
[2017-06-21] MEDS: POLYVINYL ALCOHOL 15 ML BOTTLE EACHEYE SCH ×4 (05:53→23:16)
[2017-06-21] MEDS: PREVACID (NF) 30 MG TAB GT SCH (05:53)
[2017-06-21 06:45] LABS: CALCIUM, SERUM 10.3 mg/dL (8.5-10.1); CREATININE 0.5 mg/dL (0.6-1.3); POTASSIUM 4.2 mmol/L (3.5-5.1)
[2017-06-21] MEDS: IPRATROPIUM NEB FS 0.5 MG/2.5 ML AMPUL.NEB IH SCH ×2 (06:58→19:56)
[2017-06-21 07:04] LABS: BASOPHILS % (AUTO) 0.3 % (0.0-2.0); EOSINOPHILS % (AUTO) 2.3 % (0.0-6.0); HEMATOCRIT 27 % (33-45); HEMOGLOBIN 8.5 g/dL (11.5-14.8); LYMPHOCYTES # (AUTO) 1.6 /CMM (0.8-4.8); MEAN CORPUSCULAR HEMOGLOBIN 24 PG (26.0-33.0); MEAN CORPUSCULAR HGB CONC 31 g/dl (31.0-36.0); MEAN CORPUSCULAR VOLUME 78 fL (82-100); MONOCYTES # (AUTO) 0.4 /CMM (0.1-1.30); MONOCYTES % (AUTO) 4.1 % (2.0-12.0); NEUTROPHILS # (AUTO) 8.3 /CMM (1.8-8.9); NEUTROPHILS % (AUTO) 78.3 % (43.0-81.0); PLATELET COUNT (AUTO) 281 /CMM (150-450); RDW COEFFICIENT OF VARIATION 20.7 (11.5-15.0); RED BLOOD CELL COUNT(AUTO) 3.49 MIL/uL (4.0-5.2); WHITE BLOOD COUNT (AUTO) 10.6 K/uL (4.3-11.0)
[2017-06-21 07:38] VITALS: BP 107/72
[2017-06-21] MEDS: KCL 20 MEQ/15 ML GT SCH (09:36)
[2017-06-21] MEDS: HYDROGEN PEROXIDE 480 ML BOTTLE TP SCH ×2 (09:36→20:33)
[2017-06-21] MEDS: Z GUARD REMEDY 4 OZ OINT TP SCH ×2 (09:36→20:33)
[2017-06-21] MEDS: LACTULOSE 20 G/30 ML UDC GT SCH (09:36)
[2017-06-21] MEDS: PROSTAT (PYXIS) 30 ML UDC GT SCH (09:36)
[2017-06-21] MEDS: MIDODRINE HCL (5MG) 5 MG TABLET GT SCH ×2 (09:36→20:33)
[2017-06-21] MEDS: NYSTATIN TOP POWDER 15 GM BOTTLE TP SCH ×2 (09:36→20:33)
[2017-06-21] MEDS: FERROUS SULFATE - FOR SA ONLY 330 MG/7.5 ML UDC GT SCH ×2 (09:36→17:00)
--- NOTE | 2017-06-21 10:30 | NUR ---
Resident was seen by casino gaming inspector Dr. Gómez. Dr. Gómez created order to change medication for eyes (pls see charge nurse's note) and charge nurse will inform resident's sister.
--- NOTE | 2017-06-21 10:32 | NUR ---
Seen by Dr. Gómez. 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 Notified Judith.
[2017-06-21] MEDS: CELLUVISC EACHEYE SCH ×3 (13:00→21:00)
--- NOTE | 2017-06-21 13:00 | NUR ---
Seen by MICROWAVE RADIO TECHNICIAN Coby Pabon. Relayed CBC result to her. No new order.
[2017-06-21] MEDS: VANCOMYCIN 1 GM in IV D5W 250 ML IV SCH (18:41)
--- NOTE | 2017-06-21 19:21 | NUR ---
Asked NIKI Ashford for Vancomycin stop date. She said the pt should be on Vancomycin for at least 7 days or 10 days. She did not order a stop date yet. Pt's right leg is still red and swollen.
[2017-06-21 20:19] VITALS: BP 122/79
[2017-06-21] MEDS: MULTIVIT, IRON, MIN NO. 8, FA 1 TAB GT SCH (20:33)
[2017-06-21] MEDS: SENNOSIDES 8.6 MG TABLET GT SCH (21:01)
[2017-06-21] MEDS ORDERED: VANCOMYCIN 1 GM in IV D5W 250 ML IV SCH (22:00)
[2017-06-21] MEDS: LANOLIN/MIN OIL/PETROLAT,WHT 3.5 GM TUBE EACHEYE SCH (22:10)
[2017-06-22] MEDS: PREVACID (NF) 30 MG TAB GT SCH (05:28)
[2017-06-22] MEDS: POLYVINYL ALCOHOL 15 ML BOTTLE EACHEYE SCH ×4 (05:28→23:50)
[2017-06-22] MEDS: RENAL NOVASOURCE 1,000 ML BOTTLE GT PRN (05:28)
[2017-06-22] MEDS: BACLOFEN (10 MG) 10 MG TABLET GT SCH ×2 (05:28→17:39)
[2017-06-22 07:43] VITALS: BP 121/69
[2017-06-22] MEDS: IPRATROPIUM NEB FS 0.5 MG/2.5 ML AMPUL.NEB IH SCH ×2 (07:58→19:30)
[2017-06-22] MEDS: CELLUVISC EACHEYE SCH ×4 (09:00→21:00)
[2017-06-22] MEDS: LACTULOSE 20 G/30 ML UDC GT SCH (09:54)
[2017-06-22] MEDS: FERROUS SULFATE - FOR SA ONLY 330 MG/7.5 ML UDC GT SCH ×2 (09:54→17:39)
[2017-06-22] MEDS: KCL 20 MEQ/15 ML GT SCH (09:54)
[2017-06-22] MEDS: HYDROGEN PEROXIDE 480 ML BOTTLE TP SCH ×2 (09:54→21:15)
[2017-06-22] MEDS: PROSTAT (PYXIS) 30 ML UDC GT SCH (09:54)
[2017-06-22] MEDS: MIDODRINE HCL (5MG) 5 MG TABLET GT SCH ×2 (09:54→21:15)
[2017-06-22] MEDS: NYSTATIN TOP POWDER 15 GM BOTTLE TP SCH ×2 (09:55→21:15)
[2017-06-22] MEDS: Z GUARD REMEDY 4 OZ OINT TP SCH ×2 (09:55→21:15)
--- NOTE | 2017-06-22 15:38 | NUR ---
Pt tolerated current vent settings well. Pt trach is secure. Vent is plugged into a red outlet, alarms are set and audible, and BVM is at bedside. Addendum: 06/22/17 at 1538 by NADINE RIOS RT Amended: Links added.
[2017-06-22] MEDS: VANCOMYCIN 1 GM in IV D5W 250 ML IV SCH (18:51)
[2017-06-22 20:07] VITALS: BP 110/65
[2017-06-22] MEDS: SENNOSIDES 8.6 MG TABLET GT SCH (21:15)
[2017-06-22] MEDS: MULTIVIT, IRON, MIN NO. 8, FA 1 TAB GT SCH (21:15)
[2017-06-22] MEDS: LANOLIN/MIN OIL/PETROLAT,WHT 3.5 GM TUBE EACHEYE SCH (21:15)
[2017-06-23] MEDS: RENAL NOVASOURCE 1,000 ML BOTTLE GT PRN (05:19)
[2017-06-23] MEDS: PREVACID (NF) 30 MG TAB GT SCH (05:19)
[2017-06-23] MEDS: POLYVINYL ALCOHOL 15 ML BOTTLE EACHEYE SCH ×4 (05:19→23:29)
[2017-06-23] MEDS: BACLOFEN (10 MG) 10 MG TABLET GT SCH ×2 (05:19→17:12)
[2017-06-23] MEDS: IPRATROPIUM NEB FS 0.5 MG/2.5 ML AMPUL.NEB IH SCH ×2 (07:28→19:30)
[2017-06-23 07:42] VITALS: BP 119/65
[2017-06-23] MEDS: CELLUVISC EACHEYE SCH ×4 (09:00→20:57)
[2017-06-23] MEDS: MIDODRINE HCL (5MG) 5 MG TABLET GT SCH ×2 (09:37→20:58)
[2017-06-23] MEDS: FERROUS SULFATE - FOR SA ONLY 330 MG/7.5 ML UDC GT SCH ×2 (09:37→17:11)
[2017-06-23] MEDS: KCL 20 MEQ/15 ML GT SCH (09:37)
[2017-06-23] MEDS: LACTULOSE 20 G/30 ML UDC GT SCH (09:37)
[2017-06-23] MEDS: PROSTAT (PYXIS) 30 ML UDC GT SCH (09:37)
[2017-06-23] MEDS: NYSTATIN TOP POWDER 15 GM BOTTLE TP SCH ×2 (09:38→20:58)
[2017-06-23] MEDS: Z GUARD REMEDY 4 OZ OINT TP SCH ×2 (09:38→20:58)
[2017-06-23] MEDS: HYDROGEN PEROXIDE 480 ML BOTTLE TP SCH ×2 (09:38→20:58)
--- NOTE | 2017-06-23 17:47 | NUR ---
RT NOTE PATIENT RECEIVED ON MECHANICAL VENTILATION. SUCTION DONE, TRACH SECURED AND PATENT. TX GIVEN, NO ADVERSE REACTIONS. ALARMS ON AND AUDIBLE. HME REPLACED. PATIENT STABLE T/O SHIFT. Addendum: 06/23/17 at 1747 by MARLIN AGUILAR RT Amended: Links added.
[2017-06-23 17:56] LABS: CREATININE 0.4 mg/dL (0.6-1.3)
[2017-06-23] MEDS: VANCOMYCIN 1 GM in IV D5W 250 ML IV SCH (19:00)
[2017-06-23 19:50] VITALS: BP 106/67
[2017-06-23] MEDS: MULTIVIT, IRON, MIN NO. 8, FA 1 TAB GT SCH (20:58)
[2017-06-23] MEDS: SENNOSIDES 8.6 MG TABLET GT SCH (21:01)
[2017-06-23] MEDS: LANOLIN/MIN OIL/PETROLAT,WHT 3.5 GM TUBE EACHEYE SCH (21:01)
[2017-06-24] MEDS: POLYVINYL ALCOHOL 15 ML BOTTLE EACHEYE SCH ×4 (05:09→23:17)
[2017-06-24] MEDS: BACLOFEN (10 MG) 10 MG TABLET GT SCH ×2 (05:09→17:17)
[2017-06-24] MEDS: RENAL NOVASOURCE 1,000 ML BOTTLE GT PRN (05:09)
[2017-06-24] MEDS: LACTULOSE 10 G/15 ML UDC (PYXIS) GT PRN ×2 (05:09→21:12)
[2017-06-24] MEDS: PREVACID (NF) 30 MG TAB GT SCH (05:09)
[2017-06-24] MEDS: IPRATROPIUM NEB FS 0.5 MG/2.5 ML AMPUL.NEB IH SCH ×2 (07:30→19:34)
[2017-06-24 07:44] VITALS: BP 131/86
[2017-06-24] MEDS: LACTULOSE 20 G/30 ML UDC GT SCH (09:00)
[2017-06-24] MEDS: KCL 20 MEQ/15 ML GT SCH (09:00)
[2017-06-24] MEDS: PROSTAT (PYXIS) 30 ML UDC GT SCH (09:00)
[2017-06-24] MEDS: CELLUVISC EACHEYE SCH ×4 (09:00→21:12)
[2017-06-24] MEDS: MIDODRINE HCL (5MG) 5 MG TABLET GT SCH ×2 (09:00→21:12)
[2017-06-24] MEDS: HYDROGEN PEROXIDE 480 ML BOTTLE TP SCH ×2 (09:00→21:12)
[2017-06-24] MEDS: FERROUS SULFATE - FOR SA ONLY 330 MG/7.5 ML UDC GT SCH ×2 (09:00→17:16)
[2017-06-24] MEDS: Z GUARD REMEDY 4 OZ OINT TP SCH ×2 (09:00→21:12)
[2017-06-24] MEDS ORDERED: LORAZEPAM INJ 2 MG/ML VIAL IV PRN (14:00)
[2017-06-24] MEDS: VANCOMYCIN 1 GM in IV D5W 250 ML IV SCH (17:56)
[2017-06-24] MEDS: MULTIVIT, IRON, MIN NO. 8, FA 1 TAB GT SCH (21:12)
[2017-06-24] MEDS: SENNOSIDES 8.6 MG TABLET GT SCH (21:12)
[2017-06-24] MEDS: LANOLIN/MIN OIL/PETROLAT,WHT 3.5 GM TUBE EACHEYE SCH (21:12)
[2017-06-24 23:21] VITALS: BP 110/77
[2017-06-25] MEDS: POLYVINYL ALCOHOL 15 ML BOTTLE EACHEYE SCH ×4 (05:32→23:55)
[2017-06-25] MEDS: RENAL NOVASOURCE 1,000 ML BOTTLE GT PRN (05:32)
[2017-06-25] MEDS: PREVACID (NF) 30 MG TAB GT SCH (05:32)
[2017-06-25] MEDS: BACLOFEN (10 MG) 10 MG TABLET GT SCH ×2 (05:32→17:19)
[2017-06-25 07:52] VITALS: BP 102/73
[2017-06-25] MEDS: IPRATROPIUM NEB FS 0.5 MG/2.5 ML AMPUL.NEB IH SCH ×2 (08:18→20:07)
[2017-06-25] MEDS: CELLUVISC EACHEYE SCH ×4 (09:00→21:25)
[2017-06-25] MEDS: KCL 20 MEQ/15 ML GT SCH (09:00)
[2017-06-25] MEDS: LACTULOSE 20 G/30 ML UDC GT SCH (09:00)
[2017-06-25] MEDS: MIDODRINE HCL (5MG) 5 MG TABLET GT SCH ×2 (09:00→21:26)
[2017-06-25] MEDS: PROSTAT (PYXIS) 30 ML UDC GT SCH (09:00)
[2017-06-25] MEDS: Z GUARD REMEDY 4 OZ OINT TP SCH (09:00)
[2017-06-25] MEDS: FERROUS SULFATE - FOR SA ONLY 330 MG/7.5 ML UDC GT SCH ×2 (09:00→17:19)
[2017-06-25] MEDS: HYDROGEN PEROXIDE 480 ML BOTTLE TP SCH ×2 (09:00→21:26)
[2017-06-25] MEDS: VANCOMYCIN 1 GM in IV D5W 250 ML IV SCH (18:54)
[2017-06-25] MEDS: MULTIVIT, IRON, MIN NO. 8, FA 1 TAB GT SCH (21:26)
[2017-06-25] MEDS: SENNOSIDES 8.6 MG TABLET GT SCH (21:26)
[2017-06-25] MEDS: LANOLIN/MIN OIL/PETROLAT,WHT 3.5 GM TUBE EACHEYE SCH (21:26)
[2017-06-25 21:49] VITALS: BP 92/72
[2017-06-26] MEDS: BACLOFEN (10 MG) 10 MG TABLET GT SCH ×2 (05:05→18:39)
[2017-06-26] MEDS: POLYVINYL ALCOHOL 15 ML BOTTLE EACHEYE SCH (05:05)
[2017-06-26] MEDS: PREVACID (NF) 30 MG TAB GT SCH (05:05)
[2017-06-26] MEDS: RENAL NOVASOURCE 1,000 ML BOTTLE GT PRN (05:55)
[2017-06-26] MEDS: IPRATROPIUM NEB FS 0.5 MG/2.5 ML AMPUL.NEB IH SCH ×2 (07:33→20:17)
[2017-06-26 07:49] VITALS: BP 94/54
[2017-06-26] MEDS: Z GUARD REMEDY 4 OZ OINT TP SCH ×2 (09:00→21:22)
[2017-06-26] MEDS: HYDROGEN PEROXIDE 480 ML BOTTLE TP SCH ×2 (09:00→21:22)
[2017-06-26] MEDS: LACTULOSE 20 G/30 ML UDC GT SCH (09:48)
[2017-06-26] MEDS: CELLUVISC EACHEYE SCH ×4 (09:48→21:22)
[2017-06-26] MEDS: FERROUS SULFATE - FOR SA ONLY 330 MG/7.5 ML UDC GT SCH ×2 (09:49→16:57)
[2017-06-26] MEDS: MIDODRINE HCL (5MG) 5 MG TABLET GT SCH ×2 (09:49→21:22)
[2017-06-26] MEDS: PROSTAT (PYXIS) 30 ML UDC GT SCH (09:49)
[2017-06-26] MEDS: KCL 20 MEQ/15 ML GT SCH (09:49)
--- NOTE | 2017-06-26 14:04 | NUR ---
RT NOTE: PATIENT RECEIVED TRACH ON LTV VENT. ALARMS VERIFIED AND AUDIBLE. VENT PLUGGED INTO RED OUTLET. SUCTIONED AND LAVAGED THICK JOHN SECRETIONS. AMBU BAG AND NEW TRACH AT [facility].
[2017-06-26] MEDS: VANCOMYCIN 1 GM in IV D5W 250 ML IV SCH (18:31)
[2017-06-26 20:06] VITALS: BP 99/71
[2017-06-26] MEDS: MULTIVIT, IRON, MIN NO. 8, FA 1 TAB GT SCH (21:22)
[2017-06-26] MEDS: LANOLIN/MIN OIL/PETROLAT,WHT 3.5 GM TUBE EACHEYE SCH (21:23)
[2017-06-26] MEDS: SENNOSIDES 8.6 MG TABLET GT SCH (21:23)
--- NOTE | 2017-06-27 02:35 | NUR ---
pt rec'd trached and on [facility] vent settings as charted. no resp distress noted. continue tx as ordered. no new changes made throughout shift. alarms are set and audible. ambu bag is bedside. vent is plugged into red outlet. will continue to monitor Addendum: 06/27/17 at 0534 by CHIRAG MENDEZ RT Amended: Links added.
[2017-06-27] MEDS: BACLOFEN (10 MG) 10 MG TABLET GT SCH ×2 (05:12→17:47)
[2017-06-27] MEDS: PREVACID (NF) 30 MG TAB GT SCH (05:12)
[2017-06-27] MEDS: RENAL NOVASOURCE 1,000 ML BOTTLE GT PRN (05:13)
[2017-06-27] MEDS: IPRATROPIUM NEB FS 0.5 MG/2.5 ML AMPUL.NEB IH SCH ×2 (07:34→19:20)
[2017-06-27 07:55] VITALS: BP 113/51
[2017-06-27] MEDS: LACTULOSE 20 G/30 ML UDC GT SCH (09:00)
[2017-06-27] MEDS: HYDROGEN PEROXIDE 480 ML BOTTLE TP SCH ×2 (09:00→21:08)
[2017-06-27] MEDS: MIDODRINE HCL (5MG) 5 MG TABLET GT SCH ×2 (09:00→21:07)
[2017-06-27] MEDS: KCL 20 MEQ/15 ML GT SCH (09:00)
[2017-06-27] MEDS: FERROUS SULFATE - FOR SA ONLY 330 MG/7.5 ML UDC GT SCH ×2 (09:00→17:47)
[2017-06-27] MEDS: PROSTAT (PYXIS) 30 ML UDC GT SCH (09:00)
[2017-06-27] MEDS: CELLUVISC EACHEYE SCH ×4 (09:00→21:06)
[2017-06-27] MEDS: Z GUARD REMEDY 4 OZ OINT TP SCH ×2 (09:00→21:08)
[2017-06-27] MEDS: VANCOMYCIN 1 GM in IV D5W 250 ML IV SCH (19:00)
[2017-06-27 20:42] VITALS: BP 107/90
[2017-06-27] MEDS: MULTIVIT, IRON, MIN NO. 8, FA 1 TAB GT SCH (21:07)
[2017-06-27] MEDS: LANOLIN/MIN OIL/PETROLAT,WHT 3.5 GM TUBE EACHEYE SCH (21:08)
[2017-06-27] MEDS: SENNOSIDES 8.6 MG TABLET GT SCH (21:08)
[2017-06-28] MEDS: IPRATROPIUM NEB FS 0.5 MG/2.5 ML AMPUL.NEB IH SCH ×2 (00:58→20:17)
[2017-06-28] MEDS: PREVACID (NF) 30 MG TAB GT SCH (06:09)
[2017-06-28] MEDS: BACLOFEN (10 MG) 10 MG TABLET GT SCH ×2 (06:09→17:07)
[2017-06-28] MEDS: RENAL NOVASOURCE 1,000 ML BOTTLE GT PRN (08:45)
[2017-06-28] MEDS: CELLUVISC EACHEYE SCH ×4 (09:20→21:06)
[2017-06-28] MEDS: LACTULOSE 20 G/30 ML UDC GT SCH (09:20)
[2017-06-28] MEDS: FERROUS SULFATE - FOR SA ONLY 330 MG/7.5 ML UDC GT SCH ×2 (09:20→16:53)
[2017-06-28] MEDS: PROSTAT (PYXIS) 30 ML UDC GT SCH (09:21)
[2017-06-28] MEDS: KCL 20 MEQ/15 ML GT SCH (09:21)
[2017-06-28] MEDS: MIDODRINE HCL (5MG) 5 MG TABLET GT SCH ×2 (09:21→21:06)
[2017-06-28] MEDS: HYDROGEN PEROXIDE 480 ML BOTTLE TP SCH ×2 (12:30→21:06)
[2017-06-28] MEDS: Z GUARD REMEDY 4 OZ OINT TP SCH ×2 (12:30→21:06)
--- NOTE | 2017-06-28 15:24 | NUR ---
Notified NIKI Sandoval that pt's abdomen is distended. Pt had a bowel movement yesterday. NIKI Carrasco examined pt. No new order at this time.
[2017-06-28] MEDS: VANCOMYCIN 1 GM in IV D5W 250 ML IV SCH (18:29)
[2017-06-28 20:00] VITALS: BP 109/81
[2017-06-28] MEDS: MULTIVIT, IRON, MIN NO. 8, FA 1 TAB GT SCH (21:05)
[2017-06-28] MEDS: SENNOSIDES 8.6 MG TABLET GT SCH (21:07)
[2017-06-28] MEDS: LANOLIN/MIN OIL/PETROLAT,WHT 3.5 GM TUBE EACHEYE SCH (21:11)
[2017-06-29] MEDS: PREVACID (NF) 30 MG TAB GT SCH (06:10)
[2017-06-29] MEDS: BACLOFEN (10 MG) 10 MG TABLET GT SCH ×2 (06:11→17:42)
[2017-06-29] MEDS: IPRATROPIUM NEB FS 0.5 MG/2.5 ML AMPUL.NEB IH SCH ×2 (07:38→20:14)
[2017-06-29 07:45] VITALS: BP 86/51
[2017-06-29] MEDS: CELLUVISC EACHEYE SCH ×4 (09:05→21:24)
[2017-06-29] MEDS: LACTULOSE 20 G/30 ML UDC GT SCH (09:06)
[2017-06-29] MEDS: FERROUS SULFATE - FOR SA ONLY 330 MG/7.5 ML UDC GT SCH ×2 (09:06→17:42)
[2017-06-29] MEDS: PROSTAT (PYXIS) 30 ML UDC GT SCH (09:06)
[2017-06-29] MEDS: KCL 20 MEQ/15 ML GT SCH (09:06)
[2017-06-29] MEDS: Z GUARD REMEDY 4 OZ OINT TP SCH ×2 (09:08→21:27)
[2017-06-29] MEDS: HYDROGEN PEROXIDE 480 ML BOTTLE TP SCH ×2 (09:08→21:26)
[2017-06-29] MEDS: MIDODRINE HCL (5MG) 5 MG TABLET GT SCH ×2 (09:08→21:00)
--- NOTE | 2017-06-29 12:25 | NUR ---
Relayed KUB result to NIKI Lunaanali Sandoval. Addendum: 06/29/17 at 1226 by MIGUELANGEL REEDER RN KUB result showed no evidence of bowel obstruction, degenerative changes of the spine, bilateral lower lobe infiltrates.
--- NOTE | 2017-06-29 15:17 | NUR ---
LABEL PRINTER Luna Sandoval said she saw the KUB result. No new order.
[2017-06-29] MEDS: VANCOMYCIN 1 GM in IV D5W 250 ML IV SCH (18:00)
--- NOTE | 2017-06-29 18:38 | NUR ---
Seen by BATCH AND FURNACE OPERATOR Coby Pabon. Relayed KUB result to her. KUB result showed bilateral lower lobe infiltrates. She reviewed pt's previous CXR and since pt is asymptomatic, she said she will not order anything. Pt currently on Vancomycin for right leg cellulitis.
[2017-06-29 18:47] LABS: CREATININE 0.5 mg/dL (0.6-1.3)
[2017-06-29 20:39] VITALS: BP 137/80
[2017-06-29] MEDS: MULTIVIT, IRON, MIN NO. 8, FA 1 TAB GT SCH (21:26)
[2017-06-29] MEDS: SENNOSIDES 8.6 MG TABLET GT SCH (21:27)
[2017-06-29] MEDS: LANOLIN/MIN OIL/PETROLAT,WHT 3.5 GM TUBE EACHEYE SCH (21:27)
[2017-06-30] MEDS: RENAL NOVASOURCE 1,000 ML BOTTLE GT PRN (01:28)
[2017-06-30] MEDS: PREVACID (NF) 30 MG TAB GT SCH (05:46)
[2017-06-30] MEDS: BACLOFEN (10 MG) 10 MG TABLET GT SCH ×2 (05:46→17:20)
[2017-06-30] MEDS: IPRATROPIUM NEB FS 0.5 MG/2.5 ML AMPUL.NEB IH SCH ×2 (07:16→19:53)
--- NOTE | 2017-06-30 07:17 | NUR ---
RT PATIENT REC'D TRACHED ON [facility] VENT WITH SETTINGS SET BY . VENT ALARMS CHECKED + AUDIBLE. CUFF PRESSURE CHECKED DINING ROOM HOSTESS. TRACH SECURE AND IN PROPER POSITION. PATIENT SUCTIONED WITH MOD AMT OF PALE SEMITHICK SECRETIONS. B/S DIM COARSE. PATIENT NON RESPONSIVE AND IN NO DISTRESS AT THIS TIME. AMBU BAG AT [facility]. CONT CURRENT PLAN OF REP CARE. Addendum: 06/30/17 at 0918 by ANNAMARIA RICHTER RT Amended: Links added.
[2017-06-30 07:47] VITALS: BP 140/74
[2017-06-30] MEDS: FERROUS SULFATE - FOR SA ONLY 330 MG/7.5 ML UDC GT SCH ×2 (09:26→17:20)
[2017-06-30] MEDS: LACTULOSE 20 G/30 ML UDC GT SCH (09:26)
[2017-06-30] MEDS: KCL 20 MEQ/15 ML GT SCH (09:27)
[2017-06-30] MEDS: MIDODRINE HCL (5MG) 5 MG TABLET GT SCH ×2 (09:28→21:13)
[2017-06-30] MEDS: CELLUVISC EACHEYE SCH ×4 (09:29→21:12)
[2017-06-30] MEDS: Z GUARD REMEDY 4 OZ OINT TP SCH ×2 (09:29→21:13)
[2017-06-30] MEDS: PROSTAT (PYXIS) 30 ML UDC GT SCH (09:29)
[2017-06-30] MEDS: HYDROGEN PEROXIDE 480 ML BOTTLE TP SCH ×2 (09:29→21:13)
[2017-06-30] MEDS: VANCOMYCIN 1 GM in IV D5W 250 ML IV SCH (17:44)
--- NOTE | 2017-06-30 18:30 | NUR ---
Seen by NIKI Ashford with order to discontinue IV Vanco, resident's cellulitis in the R thigh resolved.
[2017-06-30 20:01] VITALS: BP 107/73
[2017-06-30] MEDS: SENNOSIDES 8.6 MG TABLET GT SCH (21:13)
[2017-06-30] MEDS: MULTIVIT, IRON, MIN NO. 8, FA 1 TAB GT SCH (21:13)
[2017-06-30] MEDS: LANOLIN/MIN OIL/PETROLAT,WHT 3.5 GM TUBE EACHEYE SCH (21:13)
--- NOTE | 2017-07-01 04:49 | NUR ---
RT PATIENT RECEIVED TRACHED ON [facility] VENT WITH NOTED SETTINGS. VENT ALARMS SET AND AUDIBLE. DIRECTOR ATHLETIC DONE. TRACH PATENT AND SECURE. SX SMALL AMOUNT OF THICK YELLOW/BROWN SECRETIONS. VENT PLUGGED IN TO RED OUTLET. AMBU BAG AT [facility]. NO SOB OR RESP DISTRESS NOTED ON SHIFT. Addendum: 07/01/17 at 0451 by SUJEY EDWARD RT Amended: Links added.
[2017-07-01] MEDS: BACLOFEN (10 MG) 10 MG TABLET GT SCH ×2 (05:39→17:26)
[2017-07-01] MEDS: PREVACID (NF) 30 MG TAB GT SCH (05:39)
[2017-07-01] MEDS: IPRATROPIUM NEB FS 0.5 MG/2.5 ML AMPUL.NEB IH SCH ×2 (07:41→20:01)
[2017-07-01 07:45] VITALS: BP 121/60
[2017-07-01] MEDS: LACTULOSE 20 G/30 ML UDC GT SCH (08:40)
[2017-07-01] MEDS: FERROUS SULFATE - FOR SA ONLY 330 MG/7.5 ML UDC GT SCH ×2 (08:40→17:26)
[2017-07-01] MEDS: CELLUVISC EACHEYE SCH ×4 (08:40→21:00)
[2017-07-01] MEDS: KCL 20 MEQ/15 ML GT SCH (08:42)
[2017-07-01] MEDS: PROSTAT (PYXIS) 30 ML UDC GT SCH (08:43)
[2017-07-01] MEDS: MIDODRINE HCL (5MG) 5 MG TABLET GT SCH ×2 (08:43→21:00)
[2017-07-01] MEDS: HYDROGEN PEROXIDE 480 ML BOTTLE TP SCH ×2 (09:00→21:00)
[2017-07-01] MEDS: Z GUARD REMEDY 4 OZ OINT TP SCH ×2 (09:00→21:00)
[2017-07-01] MEDS: RENAL NOVASOURCE 1,000 ML BOTTLE GT PRN (17:26)
[2017-07-01 19:56] VITALS: BP 102/72
--- NOTE | 2017-07-01 20:39 | NUR ---
Seen by NIKI Pabon no new order.
[2017-07-01] MEDS: MULTIVIT, IRON, MIN NO. 8, FA 1 TAB GT SCH (21:00)
[2017-07-01] MEDS: SENNOSIDES 8.6 MG TABLET GT SCH (22:41)
[2017-07-01] MEDS: LANOLIN/MIN OIL/PETROLAT,WHT 3.5 GM TUBE EACHEYE SCH (22:41)
--- NOTE | 2017-07-02 03:10 | NUR ---
RT PATIENT RECEIVED TRACHED ON [facility] VENT WITH NOTED SETTINGS. VENT ALARMS SET AND AUDIBLE. TELETYPE INSTALLER DONE. TRACH PATENT AND SECURE. SX MOD AMOUNT OF THICK WHITE/YELLOW SECRETIONS. VENT PLUGGED IN TO RED OUTLET. AMBU BAG AT [facility]. Addendum: 07/02/17 at 0310 by SUJEY EDWARD RT Amended: Links added.
[2017-07-02] MEDS: BACLOFEN (10 MG) 10 MG TABLET GT SCH ×2 (05:34→17:06)
[2017-07-02] MEDS: PREVACID (NF) 30 MG TAB GT SCH (05:34)
[2017-07-02] MEDS: IPRATROPIUM NEB FS 0.5 MG/2.5 ML AMPUL.NEB IH SCH ×2 (07:48→18:59)
[2017-07-02 07:57] VITALS: BP 106/73
[2017-07-02] MEDS: MIDODRINE HCL (5MG) 5 MG TABLET GT SCH ×2 (09:02→21:14)
[2017-07-02] MEDS: HYDROGEN PEROXIDE 480 ML BOTTLE TP SCH ×2 (09:04→21:14)
[2017-07-02] MEDS: KCL 20 MEQ/15 ML GT SCH (09:04)
[2017-07-02] MEDS: CELLUVISC EACHEYE SCH ×4 (09:04→21:14)
[2017-07-02] MEDS: Z GUARD REMEDY 4 OZ OINT TP SCH ×2 (09:04→21:14)
[2017-07-02] MEDS: FERROUS SULFATE - FOR SA ONLY 330 MG/7.5 ML UDC GT SCH ×2 (09:04→16:57)
[2017-07-02] MEDS: PROSTAT (PYXIS) 30 ML UDC GT SCH (09:04)
[2017-07-02] MEDS: LACTULOSE 20 G/30 ML UDC GT SCH (09:04)
[2017-07-02 20:55] VITALS: BP 101/77
[2017-07-02] MEDS: SENNOSIDES 8.6 MG TABLET GT SCH (21:14)
[2017-07-02] MEDS: MULTIVIT, IRON, MIN NO. 8, FA 1 TAB GT SCH (21:14)
[2017-07-02] MEDS: LANOLIN/MIN OIL/PETROLAT,WHT 3.5 GM TUBE EACHEYE SCH (22:28)
--- NOTE | 2017-07-03 02:41 | NUR ---
RT Pt trach remains on [facility] vent on ordered settings. no resp distress noted. Addendum: 07/03/17 at 0242 by SAE MERAZ RT Amended: Links added.
[2017-07-03] MEDS: PREVACID (NF) 30 MG TAB GT SCH (06:22)
[2017-07-03] MEDS: RENAL NOVASOURCE 1,000 ML BOTTLE GT PRN (06:22)
[2017-07-03] MEDS: BACLOFEN (10 MG) 10 MG TABLET GT SCH ×2 (06:22→17:20)
[2017-07-03 07:37] VITALS: BP 115/71
[2017-07-03] MEDS: IPRATROPIUM NEB FS 0.5 MG/2.5 ML AMPUL.NEB IH SCH ×2 (07:41→19:34)
[2017-07-03] MEDS: FERROUS SULFATE - FOR SA ONLY 330 MG/7.5 ML UDC GT SCH ×2 (09:00→17:20)
[2017-07-03] MEDS: KCL 20 MEQ/15 ML GT SCH (09:00)
[2017-07-03] MEDS: PROSTAT (PYXIS) 30 ML UDC GT SCH (09:00)
[2017-07-03] MEDS: LACTULOSE 20 G/30 ML UDC GT SCH (09:00)
[2017-07-03] MEDS: HYDROGEN PEROXIDE 480 ML BOTTLE TP SCH ×2 (09:00→21:36)
[2017-07-03] MEDS: MIDODRINE HCL (5MG) 5 MG TABLET GT SCH ×2 (09:00→21:36)
[2017-07-03] MEDS: CELLUVISC EACHEYE SCH ×4 (09:00→21:36)
[2017-07-03] MEDS: Z GUARD REMEDY 4 OZ OINT TP SCH ×2 (09:00→21:36)
[2017-07-03] MEDS: MULTIVIT, IRON, MIN NO. 8, FA 1 TAB GT SCH (21:36)
[2017-07-03] MEDS: SENNOSIDES 8.6 MG TABLET GT SCH (21:37)
[2017-07-03 21:58] VITALS: BP 108/59
[2017-07-03] MEDS: LANOLIN/MIN OIL/PETROLAT,WHT 3.5 GM TUBE EACHEYE SCH (22:38)
[2017-07-04] MEDS: LACTULOSE 10 G/15 ML UDC (PYXIS) GT PRN (01:20)
[2017-07-04] MEDS: BACLOFEN (10 MG) 10 MG TABLET GT SCH ×2 (06:01→18:14)
[2017-07-04] MEDS: PREVACID (NF) 30 MG TAB GT SCH (06:01)
[2017-07-04] MEDS: RENAL NOVASOURCE 1,000 ML BOTTLE GT PRN (06:02)
[2017-07-04] MEDS: IPRATROPIUM NEB FS 0.5 MG/2.5 ML AMPUL.NEB IH SCH ×2 (07:28→19:56)
[2017-07-04 07:33] VITALS: BP 106/59
[2017-07-04] MEDS: Z GUARD REMEDY 4 OZ OINT TP SCH ×2 (09:00→20:19)
[2017-07-04] MEDS: HYDROGEN PEROXIDE 480 ML BOTTLE TP SCH ×2 (09:00→20:19)
[2017-07-04] MEDS: FERROUS SULFATE - FOR SA ONLY 330 MG/7.5 ML UDC GT SCH ×2 (09:37→17:00)
[2017-07-04] MEDS: KCL 20 MEQ/15 ML GT SCH (09:37)
[2017-07-04] MEDS: CELLUVISC EACHEYE SCH ×4 (09:37→20:18)
[2017-07-04] MEDS: LACTULOSE 20 G/30 ML UDC GT SCH (09:37)
[2017-07-04] MEDS: MIDODRINE HCL (5MG) 5 MG TABLET GT SCH ×2 (09:38→20:18)
[2017-07-04] MEDS: PROSTAT (PYXIS) 30 ML UDC GT SCH (09:38)
[2017-07-04 20:04] VITALS: BP 107/71
[2017-07-04] MEDS: MULTIVIT, IRON, MIN NO. 8, FA 1 TAB GT SCH (20:18)
[2017-07-04] MEDS: LANOLIN/MIN OIL/PETROLAT,WHT 3.5 GM TUBE EACHEYE SCH (21:15)
[2017-07-04] MEDS: SENNOSIDES 8.6 MG TABLET GT SCH (21:15)
[2017-07-05] MEDS: BACLOFEN (10 MG) 10 MG TABLET GT SCH (05:07)
[2017-07-05] MEDS: PREVACID (NF) 30 MG TAB GT SCH (05:07)
[2017-07-05] MEDS: IPRATROPIUM NEB FS 0.5 MG/2.5 ML AMPUL.NEB IH SCH ×2 (07:27→19:49)
[2017-07-05 08:02] VITALS: BP 89/53
[2017-07-05] MEDS: CELLUVISC EACHEYE SCH ×3 (08:34→21:00)
[2017-07-05] MEDS: LACTULOSE 20 G/30 ML UDC GT SCH (08:34)
[2017-07-05] MEDS: FERROUS SULFATE - FOR SA ONLY 330 MG/7.5 ML UDC GT SCH (08:34)
[2017-07-05] MEDS: KCL 20 MEQ/15 ML GT SCH (08:34)
[2017-07-05] MEDS: PROSTAT (PYXIS) 30 ML UDC GT SCH (08:35)
[2017-07-05] MEDS: MIDODRINE HCL (5MG) 5 MG TABLET GT SCH ×2 (08:35→21:51)
[2017-07-05] MEDS: HYDROGEN PEROXIDE 480 ML BOTTLE TP SCH ×2 (09:15→21:51)
[2017-07-05] MEDS: Z GUARD REMEDY 4 OZ OINT TP SCH ×2 (09:15→21:51)
[2017-07-05 20:07] VITALS: BP 100/57
[2017-07-05] MEDS: SENNOSIDES 8.6 MG TABLET GT SCH (21:51)
[2017-07-05] MEDS: LANOLIN/MIN OIL/PETROLAT,WHT 3.5 GM TUBE EACHEYE SCH (21:51)
[2017-07-05] MEDS: MULTIVIT, IRON, MIN NO. 8, FA 1 TAB GT SCH (21:51)
[2017-07-06] MEDS: PREVACID (NF) 30 MG TAB GT SCH (06:24)
[2017-07-06] MEDS: BACLOFEN (10 MG) 10 MG TABLET GT SCH ×2 (06:26→17:23)
[2017-07-06 07:58] VITALS: BP 98/52
[2017-07-06] MEDS: IPRATROPIUM NEB FS 0.5 MG/2.5 ML AMPUL.NEB IH SCH ×2 (08:15→19:30)
[2017-07-06] MEDS: Z GUARD REMEDY 4 OZ OINT TP SCH ×2 (09:00→21:19)
[2017-07-06] MEDS: LACTULOSE 20 G/30 ML UDC GT SCH (09:00)
[2017-07-06] MEDS: MIDODRINE HCL (5MG) 5 MG TABLET GT SCH ×2 (09:00→21:19)
[2017-07-06] MEDS: PROSTAT (PYXIS) 30 ML UDC GT SCH (09:00)
[2017-07-06] MEDS: KCL 20 MEQ/15 ML GT SCH (09:00)
[2017-07-06] MEDS: CELLUVISC EACHEYE SCH ×4 (09:00→21:18)
[2017-07-06] MEDS: FERROUS SULFATE - FOR SA ONLY 330 MG/7.5 ML UDC GT SCH ×2 (09:00→17:22)
[2017-07-06] MEDS: HYDROGEN PEROXIDE 480 ML BOTTLE TP SCH ×2 (09:00→21:19)
--- NOTE | 2017-07-06 11:42 | NUR ---
Seen by Dr. Dugan. Received order to give Lasix 20 mg via GT daily for edema, BMP Mg Phos on 07/09/17. Notified pt's mother.
--- NOTE | 2017-07-06 11:45 | NUR ---
Pt was seen today by Dr. Macario. Received order to place pt on CPAP PSV 12 Peep 5 on 07/12/17, ABG 1 hour post vent change. Notified pt's mother.
[2017-07-06 20:18] VITALS: BP 100/62
[2017-07-06] MEDS: MULTIVIT, IRON, MIN NO. 8, FA 1 TAB GT SCH (21:19)
[2017-07-06] MEDS: LANOLIN/MIN OIL/PETROLAT,WHT 3.5 GM TUBE EACHEYE SCH (21:19)
[2017-07-06] MEDS: SENNOSIDES 8.6 MG TABLET GT SCH (21:19)
[2017-07-07] MEDS: BACLOFEN (10 MG) 10 MG TABLET GT SCH ×2 (05:37→18:00)
[2017-07-07] MEDS: PREVACID (NF) 30 MG TAB GT SCH (05:37)
[2017-07-07] MEDS: IPRATROPIUM NEB FS 0.5 MG/2.5 ML AMPUL.NEB IH SCH ×2 (07:50→20:36)
[2017-07-07] MEDS: LACTULOSE 20 G/30 ML UDC GT SCH (08:56)
[2017-07-07] MEDS: CELLUVISC EACHEYE SCH ×4 (08:57→21:42)
[2017-07-07] MEDS: FERROUS SULFATE - FOR SA ONLY 330 MG/7.5 ML UDC GT SCH ×2 (08:57→16:44)
[2017-07-07] MEDS: PROSTAT (PYXIS) 30 ML UDC GT SCH (08:58)
[2017-07-07] MEDS: Z GUARD REMEDY 4 OZ OINT TP SCH ×2 (08:58→21:44)
[2017-07-07] MEDS: MIDODRINE HCL (5MG) 5 MG TABLET GT SCH ×2 (08:58→21:44)
[2017-07-07] MEDS: HYDROGEN PEROXIDE 480 ML BOTTLE TP SCH ×2 (08:58→21:44)
[2017-07-07] MEDS: KCL 20 MEQ/15 ML GT SCH (09:03)
[2017-07-07] MEDS: RENAL NOVASOURCE 1,000 ML BOTTLE GT PRN (15:41)
[2017-07-07 20:02] VITALS: BP 105/77
[2017-07-07] MEDS: SENNOSIDES 8.6 MG TABLET GT SCH (21:44)
[2017-07-07] MEDS: MULTIVIT, IRON, MIN NO. 8, FA 1 TAB GT SCH (21:44)
[2017-07-07] MEDS: LANOLIN/MIN OIL/PETROLAT,WHT 3.5 GM TUBE EACHEYE SCH (21:44)
--- NOTE | 2017-07-08 03:50 | NUR ---
pt rec'd trached and on [facility] vent settings as charted. no resp distress noted. continue tx as ordered. no new changes made throughout shift. alarms are set and audible. ambu bag is bedside. vent is plugged into red outlet. will continue to monitor Addendum: 07/08/17 at 0419 by CHIRAG MENDEZ RT Amended: Links added.
[2017-07-08] MEDS: BACLOFEN (10 MG) 10 MG TABLET GT SCH ×2 (06:05→17:12)
[2017-07-08] MEDS: PREVACID (NF) 30 MG TAB GT SCH (06:05)
[2017-07-08] MEDS: IPRATROPIUM NEB FS 0.5 MG/2.5 ML AMPUL.NEB IH SCH ×2 (07:23→19:30)
[2017-07-08 07:54] VITALS: BP 97/64
[2017-07-08] MEDS: MIDODRINE HCL (5MG) 5 MG TABLET GT SCH ×2 (09:00→21:26)
[2017-07-08] MEDS: FERROUS SULFATE - FOR SA ONLY 330 MG/7.5 ML UDC GT SCH ×2 (09:11→17:12)
[2017-07-08] MEDS: CELLUVISC EACHEYE SCH ×4 (09:11→21:26)
[2017-07-08] MEDS: LACTULOSE 20 G/30 ML UDC GT SCH (09:11)
[2017-07-08] MEDS: KCL 20 MEQ/15 ML GT SCH (09:11)
[2017-07-08] MEDS: PROSTAT (PYXIS) 30 ML UDC GT SCH (09:11)
[2017-07-08] MEDS: HYDROGEN PEROXIDE 480 ML BOTTLE TP SCH ×2 (09:12→21:26)
[2017-07-08] MEDS: Z GUARD REMEDY 4 OZ OINT TP SCH ×2 (09:12→21:26)
[2017-07-08 20:01] VITALS: BP 103/65
[2017-07-08] MEDS: MULTIVIT, IRON, MIN NO. 8, FA 1 TAB GT SCH (21:26)
[2017-07-08] MEDS: SENNOSIDES 8.6 MG TABLET GT SCH (21:27)
[2017-07-08] MEDS: LANOLIN/MIN OIL/PETROLAT,WHT 3.5 GM TUBE EACHEYE SCH (22:28)
[2017-07-09] MEDS: BACLOFEN (10 MG) 10 MG TABLET GT SCH ×2 (05:52→18:21)
[2017-07-09] MEDS: PREVACID (NF) 30 MG TAB GT SCH (05:52)
[2017-07-09] MEDS: RENAL NOVASOURCE 1,000 ML BOTTLE GT PRN (05:54)
[2017-07-09] MEDS: IPRATROPIUM NEB FS 0.5 MG/2.5 ML AMPUL.NEB IH SCH ×2 (07:34→19:32)
[2017-07-09 07:46] VITALS: BP 123/83
[2017-07-09 08:53] LABS: CALCIUM, SERUM 9.9 mg/dL (8.5-10.1); CREATININE 0.5 mg/dL (0.6-1.3); PHOSPHORUS 3.7 mg/dL (2.5-4.9); POTASSIUM 3.8 mmol/L (3.5-5.1)
[2017-07-09] MEDS: KCL 20 MEQ/15 ML GT SCH (09:12)
[2017-07-09] MEDS: FERROUS SULFATE - FOR SA ONLY 330 MG/7.5 ML UDC GT SCH ×2 (09:12→17:00)
[2017-07-09] MEDS: CELLUVISC EACHEYE SCH ×4 (09:12→21:31)
[2017-07-09] MEDS: LACTULOSE 20 G/30 ML UDC GT SCH (09:12)
[2017-07-09] MEDS: MIDODRINE HCL (5MG) 5 MG TABLET GT SCH ×2 (09:13→21:32)
[2017-07-09] MEDS: HYDROGEN PEROXIDE 480 ML BOTTLE TP SCH ×2 (09:13→21:32)
[2017-07-09] MEDS: PROSTAT (PYXIS) 30 ML UDC GT SCH (09:13)
[2017-07-09] MEDS: Z GUARD REMEDY 4 OZ OINT TP SCH ×2 (09:13→21:32)
[2017-07-09 20:14] VITALS: BP 120/72
[2017-07-09] MEDS: SENNOSIDES 8.6 MG TABLET GT SCH (21:32)
[2017-07-09] MEDS: MULTIVIT, IRON, MIN NO. 8, FA 1 TAB GT SCH (21:32)
[2017-07-09] MEDS: LANOLIN/MIN OIL/PETROLAT,WHT 3.5 GM TUBE EACHEYE SCH (22:58)
[2017-07-10] MEDS: PREVACID (NF) 30 MG TAB GT SCH ×2 (05:45→21:50)
[2017-07-10] MEDS: BACLOFEN (10 MG) 10 MG TABLET GT SCH ×2 (05:45→17:40)
[2017-07-10] MEDS: IPRATROPIUM NEB FS 0.5 MG/2.5 ML AMPUL.NEB IH SCH ×2 (07:17→19:50)
--- NOTE | 2017-07-10 07:18 | NUR ---
RT PATIENT REC'D TRACHED ON [facility] VENT WITH SETTINGS SET PER MD EUGENIO HUBER. VENT ALARMS CHECKED + AUDIBLE. CUFF PRESSURE CHECKED CUT OUT MARKER. SUCTIONED WITH MOD AMT PALE SEMITHICK SECRETIONS. PATIENT NON RESPONSIVE TO VERBAL COMMANDS. NO SOB NOTED. AMBU BAG AT [facility]. CONT CURRENT PLAN OF RESP CARE. Addendum: 07/10/17 at 1339 by ANNAMARIA RICHTER RT Amended: Links added.
[2017-07-10 07:50] VITALS: BP 135/81
[2017-07-10] MEDS: CELLUVISC EACHEYE SCH ×4 (09:46→21:58)
[2017-07-10] MEDS: LACTULOSE 20 G/30 ML UDC GT SCH (09:46)
[2017-07-10] MEDS: FERROUS SULFATE - FOR SA ONLY 330 MG/7.5 ML UDC GT SCH ×2 (09:46→17:40)
[2017-07-10] MEDS: KCL 20 MEQ/15 ML GT SCH (09:46)
[2017-07-10] MEDS: Z GUARD REMEDY 4 OZ OINT TP SCH ×2 (09:48→21:50)
[2017-07-10] MEDS: PROSTAT (PYXIS) 30 ML UDC GT SCH (09:48)
[2017-07-10] MEDS: HYDROGEN PEROXIDE 480 ML BOTTLE TP SCH ×2 (09:48→21:50)
[2017-07-10] MEDS: MIDODRINE HCL (5MG) 5 MG TABLET GT SCH ×2 (09:49→21:00)
[2017-07-10] MEDS: RENAL NOVASOURCE 1,000 ML BOTTLE GT PRN (15:54)
[2017-07-10 19:59] VITALS: BP 110/63
[2017-07-10] MEDS: MULTIVIT, IRON, MIN NO. 8, FA 1 TAB GT SCH (21:48)
[2017-07-10] MEDS: LANOLIN/MIN OIL/PETROLAT,WHT 3.5 GM TUBE EACHEYE SCH (21:50)
[2017-07-10] MEDS: SENNOSIDES 8.6 MG TABLET GT SCH (21:50)
[2017-07-11] MEDS: BACLOFEN (10 MG) 10 MG TABLET GT SCH ×2 (05:46→17:12)
[2017-07-11] MEDS: IPRATROPIUM NEB FS 0.5 MG/2.5 ML AMPUL.NEB IH SCH ×2 (07:40→20:09)
--- NOTE | 2017-07-11 07:40 | NUR ---
RT PATIENT REC'D TRACHED ON [facility] VENT WITH SETTINGS SET PER MD EUGENIO HUBER. VENT ALARMS CHECKED + AUDIBLE. CUFF PRESSURE CHECKED FEATURES EDITOR. SUCTIONED WITH MOD AMT PALE SEMITHICK SECRETIONS. PATIENT NON RESPONSIVE TO VERBAL COMMANDS. NO SOB NOTED. AMBU BAG AT [facility]. CONT CURRENT PLAN OF RESP CARE. Addendum: 07/11/17 at 0855 by ANNAMARIA RICHTER RT Amended: Links added.
[2017-07-11 07:52] VITALS: BP 105/55
[2017-07-11] MEDS: HYDROGEN PEROXIDE 480 ML BOTTLE TP SCH ×2 (09:42→21:09)
[2017-07-11] MEDS: CELLUVISC EACHEYE SCH ×4 (09:42→21:09)
[2017-07-11] MEDS: MIDODRINE HCL (5MG) 5 MG TABLET GT SCH ×2 (09:42→21:09)
[2017-07-11] MEDS: KCL 20 MEQ/15 ML GT SCH (09:42)
[2017-07-11] MEDS: PROSTAT (PYXIS) 30 ML UDC GT SCH (09:42)
[2017-07-11] MEDS: LACTULOSE 20 G/30 ML UDC GT SCH (09:42)
[2017-07-11] MEDS: FERROUS SULFATE - FOR SA ONLY 330 MG/7.5 ML UDC GT SCH ×2 (09:42→17:12)
[2017-07-11] MEDS: Z GUARD REMEDY 4 OZ OINT TP SCH ×2 (09:43→21:09)
[2017-07-11 20:00] VITALS: BP 104/53
[2017-07-11] MEDS: MULTIVIT, IRON, MIN NO. 8, FA 1 TAB GT SCH (21:09)
[2017-07-11] MEDS: SENNOSIDES 8.6 MG TABLET GT SCH (21:10)
[2017-07-11] MEDS: LANOLIN/MIN OIL/PETROLAT,WHT 3.5 GM TUBE EACHEYE SCH (21:10)
--- NOTE | 2017-07-12 06:03 | NUR ---
RT PATIENT REC'D TRACHED ON VENT WITH SETTINGS SET PER EUGENIO WELL. VENT ALARMS on + AUDIBLE. CUFF PRESSURE CHECKED TRACH SECUREd & INTACT. TX GIVEN EUGENIO WELL NO ADVERSE REACTION NOTED AT. NO SOB NOTED. AMBU BAG AT [facility]. CONT TO MONITOR
[2017-07-12] MEDS: BACLOFEN (10 MG) 10 MG TABLET GT SCH ×2 (06:04→17:44)
[2017-07-12] MEDS: PREVACID (NF) 30 MG TAB GT SCH (06:05)
[2017-07-12 07:46] VITALS: BP 102/68
[2017-07-12] MEDS: IPRATROPIUM NEB FS 0.5 MG/2.5 ML AMPUL.NEB IH SCH ×2 (08:17→19:21)
--- NOTE | 2017-07-12 08:20 | NUR ---
RT PATIENT REC'D TRACHED ON [facility] VENT WITH SETTINGS SET PER MD EUGENIO HUBER. VENT ALARMS CHECKED + AUDIBLE. CUFF PRESSURE CHECKED PRESETTER OPERATOR. SUCTIONED WITH MOD AMT PALE SEMITHICK SECRETIONS. PATIENT NON RESPONSIVE TO VERBAL COMMANDS. NO SOB NOTED. AMBU BAG AT [facility]. CONT CURRENT PLAN OF RESP CARE. PER DR HERNANDEZ ORDER PATIENT WAS PLACED ON A CPAP TRIAL. TRIAL TERMINATED WHEN PATIENT WOULD NOT INITIATE A SINGLE BREATH MAKING THE VENTILATOR TURN ON ITS APNEA PARAMETERS. CHARGE NURSE NOTIFIED Addendum: 07/12/17 at 0926 by ANNAMARIA RICHTER RT Amended: Links added.
[2017-07-12] MEDS: FERROUS SULFATE - FOR SA ONLY 330 MG/7.5 ML UDC GT SCH ×2 (08:46→17:44)
[2017-07-12] MEDS: LACTULOSE 20 G/30 ML UDC GT SCH (08:46)
[2017-07-12] MEDS: CELLUVISC EACHEYE SCH ×4 (08:46→21:13)
[2017-07-12] MEDS: KCL 20 MEQ/15 ML GT SCH (08:47)
[2017-07-12] MEDS: MIDODRINE HCL (5MG) 5 MG TABLET GT SCH ×2 (08:48→21:13)
[2017-07-12] MEDS: PROSTAT (PYXIS) 30 ML UDC GT SCH (08:49)
[2017-07-12] MEDS: HYDROGEN PEROXIDE 480 ML BOTTLE TP SCH ×2 (08:49→21:14)
[2017-07-12] MEDS: Z GUARD REMEDY 4 OZ OINT TP SCH ×2 (08:49→21:14)
[2017-07-12] MEDS: RENAL NOVASOURCE 1,000 ML BOTTLE GT PRN (12:03)
--- NOTE | 2017-07-12 13:05 | NUR ---
RT ABG CANCELLED, PATIENT WAS UNABLE TO TOLERATE VENT WEANING TRIAL. NO REASON FOR ABG PER DR HERNANDEZ
[2017-07-12 19:31] VITALS: BP 94/49
[2017-07-12] MEDS: LANOLIN/MIN OIL/PETROLAT,WHT 3.5 GM TUBE EACHEYE SCH (21:14)
[2017-07-12] MEDS: MULTIVIT, IRON, MIN NO. 8, FA 1 TAB GT SCH (21:14)
[2017-07-12] MEDS: SENNOSIDES 8.6 MG TABLET GT SCH (21:14)
[2017-07-13] MEDS: BACLOFEN (10 MG) 10 MG TABLET GT SCH ×2 (05:27→18:14)
[2017-07-13] MEDS: PREVACID (NF) 30 MG TAB GT SCH (05:27)
[2017-07-13 07:25] VITALS: BP 104/67
[2017-07-13] MEDS: IPRATROPIUM NEB FS 0.5 MG/2.5 ML AMPUL.NEB IH SCH ×2 (07:42→19:40)
--- NOTE | 2017-07-13 07:42 | NUR ---
RT PT RECEIVED TRACHED ON THE VENT WITH NOTED SETTINGS. PT IS AWAKE BUT DOES NOT FOLLOW COMMANDS. VENT ALARMS ARE SET AND AUDIBLE WITH BVM BY BEDSIDE. PODIATRIST ASSISTANT CUFF PRESSURE NOTED. VENT IS PLUGGED INTO RED OUTLET. SX MODERATE THICK YELLOW SECRETIONS. NO RESPIRATORY DISTRESS NOTED AT THIS TIME, WILL CONTINUE TO MONITOR. Addendum: 07/13/17 at 0939 by JAMISON BEATTY RT Amended: Links added.
[2017-07-13] MEDS: Z GUARD REMEDY 4 OZ OINT TP SCH ×2 (09:00→21:35)
[2017-07-13] MEDS: HYDROGEN PEROXIDE 480 ML BOTTLE TP SCH ×2 (09:00→21:35)
[2017-07-13] MEDS: CELLUVISC EACHEYE SCH ×4 (09:12→21:35)
[2017-07-13] MEDS: LACTULOSE 20 G/30 ML UDC GT SCH (09:13)
[2017-07-13] MEDS: KCL 20 MEQ/15 ML GT SCH (09:14)
[2017-07-13] MEDS: FERROUS SULFATE - FOR SA ONLY 330 MG/7.5 ML UDC GT SCH ×2 (09:14→18:00)
[2017-07-13] MEDS: PROSTAT (PYXIS) 30 ML UDC GT SCH (09:16)
[2017-07-13] MEDS: MIDODRINE HCL (5MG) 5 MG TABLET GT SCH ×2 (09:18→21:35)
[2017-07-13 19:31] VITALS: BP 86/55
--- NOTE | 2017-07-13 19:50 | NUR ---
PT REC'D TRACHED ON [facility] VENT. NO RESP DISTRESS NOTED. AMBU BAG BEDSIDE. VENT PLUGGED INTO RED OUTLET. ALARMS ARE SET AND AUDIBLE. WILL CONTINUE TO MONITOR. Addendum: 07/13/17 at 2340 by CHIRAG MENDEZ RT Amended: Links added.
[2017-07-13] MEDS: MULTIVIT, IRON, MIN NO. 8, FA 1 TAB GT SCH (21:35)
[2017-07-13] MEDS: SENNOSIDES 8.6 MG TABLET GT SCH (21:35)
[2017-07-13] MEDS: LANOLIN/MIN OIL/PETROLAT,WHT 3.5 GM TUBE EACHEYE SCH (21:35)
[2017-07-14] MEDS: BACLOFEN (10 MG) 10 MG TABLET GT SCH ×2 (05:54→18:13)
[2017-07-14] MEDS: PREVACID (NF) 30 MG TAB GT SCH (05:54)
[2017-07-14] MEDS: IPRATROPIUM NEB FS 0.5 MG/2.5 ML AMPUL.NEB IH SCH (07:03)
[2017-07-14 07:55] VITALS: BP 108/66
[2017-07-14] MEDS: Z GUARD REMEDY 4 OZ OINT TP SCH ×2 (09:00→21:30)
[2017-07-14] MEDS: FERROUS SULFATE - FOR SA ONLY 330 MG/7.5 ML UDC GT SCH ×2 (09:09→17:00)
[2017-07-14] MEDS: MIDODRINE HCL (5MG) 5 MG TABLET GT SCH ×2 (09:09→21:30)
[2017-07-14] MEDS: CELLUVISC EACHEYE SCH ×4 (09:09→21:30)
[2017-07-14] MEDS: KCL 20 MEQ/15 ML GT SCH (09:09)
[2017-07-14] MEDS: LACTULOSE 20 G/30 ML UDC GT SCH (09:09)
[2017-07-14] MEDS: PROSTAT (PYXIS) 30 ML UDC GT SCH (09:09)
[2017-07-14] MEDS: HYDROGEN PEROXIDE 480 ML BOTTLE TP SCH ×2 (11:00→21:30)
--- NOTE | 2017-07-14 15:44 | NUR ---
Charge nurse informed mother Sabrina that there is an IDT meeting Wednesday from 12:30-1:30pm. She told her that she will ask her daughter Judith (the resident's sister) if she can attend. SW to follow up.
[2017-07-14] MEDS: FUROSEMIDE 20 MG TABLET GT SCH (18:09)
[2017-07-14 20:14] VITALS: BP 118/55
[2017-07-14] MEDS: MULTIVIT, IRON, MIN NO. 8, FA 1 TAB GT SCH (21:30)
[2017-07-14] MEDS: LANOLIN/MIN OIL/PETROLAT,WHT 3.5 GM TUBE EACHEYE SCH (22:05)
[2017-07-14] MEDS: SENNOSIDES 8.6 MG TABLET GT SCH (22:05)
[2017-07-15] MEDS: PREVACID (NF) 30 MG TAB GT SCH (05:38)
[2017-07-15] MEDS: BACLOFEN (10 MG) 10 MG TABLET GT SCH ×2 (05:38→17:05)
[2017-07-15] MEDS: RENAL NOVASOURCE 1,000 ML BOTTLE GT PRN (05:59)
[2017-07-15] MEDS: IPRATROPIUM NEB FS 0.5 MG/2.5 ML AMPUL.NEB IH SCH ×3 (07:17→19:43)
[2017-07-15 07:45] VITALS: BP 106/68
[2017-07-15] MEDS: FERROUS SULFATE - FOR SA ONLY 330 MG/7.5 ML UDC GT SCH ×2 (09:00→17:05)
[2017-07-15] MEDS: HYDROGEN PEROXIDE 480 ML BOTTLE TP SCH ×2 (09:00→20:36)
[2017-07-15] MEDS: Z GUARD REMEDY 4 OZ OINT TP SCH ×2 (09:00→20:36)
[2017-07-15] MEDS: MIDODRINE HCL (5MG) 5 MG TABLET GT SCH ×2 (09:00→20:36)
[2017-07-15] MEDS: KCL 20 MEQ/15 ML GT SCH (09:00)
[2017-07-15] MEDS: PROSTAT (PYXIS) 30 ML UDC GT SCH (09:00)
[2017-07-15] MEDS: LACTULOSE 20 G/30 ML UDC GT SCH (09:00)
[2017-07-15] MEDS: CELLUVISC EACHEYE SCH ×4 (09:00→20:36)
[2017-07-15] MEDS: FUROSEMIDE 20 MG TABLET GT SCH (09:00)
--- NOTE | 2017-07-15 09:33 | NUR ---
RT NOTE RECEIVED PATIENT ON MECHANICAL VENTILATION. TRACH SECURED AND PATENT. AMBU BAG/BACK UP TRACH @ BEDSIDE. VENT PLUGGED INTO RED OUTLET. ALARMS ON AND AUDIBLE. CUFF INFLATED. NO SOB NOTED. WILL CONTINUE TO MONITOR. Addendum: 07/15/17 at 0933 by MARLIN AGUILAR RT Amended: Links added.
--- NOTE | 2017-07-15 11:32 | NUR ---
Dahlia was informed by sister Judith that she wants to attend the IDT meeting via telephone conference for this Sunday July 16, 2017. DAHLIA to call her between 12:30-1:30PM.
--- NOTE | 2017-07-15 19:04 | NUR ---
Non administer Lasix 20 mg, BP 88/41, HR 77.
[2017-07-15 20:02] VITALS: BP 106/76
[2017-07-15] MEDS: MULTIVIT, IRON, MIN NO. 8, FA 1 TAB GT SCH (20:36)
[2017-07-15] MEDS: LACTULOSE 10 G/15 ML UDC (PYXIS) GT PRN (20:36)
[2017-07-15] MEDS: SENNOSIDES 8.6 MG TABLET GT SCH (21:09)
[2017-07-15] MEDS: LANOLIN/MIN OIL/PETROLAT,WHT 3.5 GM TUBE EACHEYE SCH (21:09)
[2017-07-16] MEDS: PREVACID (NF) 30 MG TAB GT SCH (05:13)
[2017-07-16] MEDS: RENAL NOVASOURCE 1,000 ML BOTTLE GT PRN (05:13)
[2017-07-16] MEDS: LACTULOSE 10 G/15 ML UDC (PYXIS) GT PRN (05:13)
[2017-07-16] MEDS: BACLOFEN (10 MG) 10 MG TABLET GT SCH ×2 (05:13→17:52)
[2017-07-16] MEDS: IPRATROPIUM NEB FS 0.5 MG/2.5 ML AMPUL.NEB IH SCH ×2 (07:30→19:15)
[2017-07-16 07:44] VITALS: BP 86/55
[2017-07-16] MEDS: CELLUVISC EACHEYE SCH ×4 (08:30→20:55)
[2017-07-16] MEDS: MIDODRINE HCL (5MG) 5 MG TABLET GT SCH ×2 (08:30→20:55)
[2017-07-16] MEDS: KCL 20 MEQ/15 ML GT SCH (08:30)
[2017-07-16] MEDS: FERROUS SULFATE - FOR SA ONLY 330 MG/7.5 ML UDC GT SCH ×2 (08:30→17:52)
[2017-07-16] MEDS: PROSTAT (PYXIS) 30 ML UDC GT SCH (08:30)
[2017-07-16] MEDS: LACTULOSE 20 G/30 ML UDC GT SCH (08:30)
[2017-07-16] MEDS: HYDROGEN PEROXIDE 480 ML BOTTLE TP SCH ×2 (08:31→20:55)
[2017-07-16] MEDS: Z GUARD REMEDY 4 OZ OINT TP SCH ×2 (08:31→20:55)
[2017-07-16] MEDS: FUROSEMIDE 20 MG TABLET GT SCH (09:00)
[2017-07-16 09:28] VITALS: BP 90/53
--- NOTE | 2017-07-16 14:00 | NUR ---
IDT meeting held, patient's sister Judith participated via telephone conference. Current orders but not limited to medications, labs, treatment, skin condition and recommendations were reviewed. Patient receiving Lasix but no parameter when to hold, Dr. Macario gave a parameter to hold if SBP is less than 90. Dr. Macario also resumed order for Ativan PRN for respiratory distress. explained to Judith the need to give Ativan only if other intervention fails. Will communicate with family and update them of patient's condition and when Ativan administration is indicated.
--- NOTE | 2017-07-16 15:29 | NUR ---
During IDT meeting (sister Judith participated via telephone conference), sister Judith was informed that the resident has a PRN order for Ativan. Judith voiced to Dr. Macario that she does not want the resident to be receiving this medication however per Dr. Macario, he strongly suggested to her that this medication has been helping to keep her calm during episodes of shortness of breath. She was not receptive to Dr. Macario's response stating she does not feel comfortable. Dr. Macario stated that they will meet in person to discuss this to which Judith agreed. Judith also asked questions in terms of when he can try weaning the resident off the ventilator again (last trial on Wednesday failed) and Dr. Macario stated that due to resident's current condition, she is not appropriate for current weaning. He did notify her that she will evaluate her on a weekly basis.
[2017-07-16] MEDS ORDERED: LORAZEPAM INJ 2 MG/ML VIAL IVP PRN (19:30)
[2017-07-16] MEDS: MULTIVIT, IRON, MIN NO. 8, FA 1 TAB GT SCH (20:55)
[2017-07-16] MEDS: SENNOSIDES 8.6 MG TABLET GT SCH (21:27)
[2017-07-16] MEDS: LANOLIN/MIN OIL/PETROLAT,WHT 3.5 GM TUBE EACHEYE SCH (21:27)
[2017-07-16 22:16] VITALS: BP 109/74
[2017-07-17] MEDS: PREVACID (NF) 30 MG TAB GT SCH (05:43)
[2017-07-17] MEDS: BACLOFEN (10 MG) 10 MG TABLET GT SCH ×2 (05:43→17:24)
[2017-07-17] MEDS: RENAL NOVASOURCE 1,000 ML BOTTLE GT PRN (05:51)
[2017-07-17] MEDS: IPRATROPIUM NEB FS 0.5 MG/2.5 ML AMPUL.NEB IH SCH ×2 (07:05→19:36)
[2017-07-17 07:44] VITALS: BP 101/61
[2017-07-17] MEDS: LACTULOSE 20 G/30 ML UDC GT SCH (08:09)
[2017-07-17] MEDS: CELLUVISC EACHEYE SCH ×4 (08:09→21:11)
[2017-07-17] MEDS: FUROSEMIDE 20 MG TABLET GT SCH (08:09)
[2017-07-17] MEDS: FERROUS SULFATE - FOR SA ONLY 330 MG/7.5 ML UDC GT SCH ×2 (08:09→16:48)
[2017-07-17] MEDS: KCL 20 MEQ/15 ML GT SCH (08:09)
[2017-07-17] MEDS: Z GUARD REMEDY 4 OZ OINT TP SCH ×2 (08:10→21:11)
[2017-07-17] MEDS: PROSTAT (PYXIS) 30 ML UDC GT SCH (08:10)
[2017-07-17] MEDS: MIDODRINE HCL (5MG) 5 MG TABLET GT SCH ×2 (08:10→21:11)
[2017-07-17] MEDS: HYDROGEN PEROXIDE 480 ML BOTTLE TP SCH ×2 (08:10→21:11)
--- NOTE | 2017-07-17 17:30 | NUR ---
Resident's sister notified that at the moment, patient HR elevated ranging from 120- 150's. Explained to Judith that when patient's HR start going up, patient's extremities become stiff with her eyes wide open. At this moment HR is stable in the low 120's but further explain that if patient develops SOB and HR becomes consistently high she may need Ativan to help calm her down. Explained that staff does not resort to giving Ativan right away, but rather try other interventions first. But if interventions are ineffective such as repositioning, breathing treatment, suctioning or PRN pain medication then Ativan is given. She verbalized understanding, stated " Ok, thank you for letting me know."
--- NOTE | 2017-07-17 18:17 | NUR ---
Resident's HR 106-115, patient stable, connected to ventilator. No SOB, Endorsed.
[2017-07-17 20:15] VITALS: BP 106/75
[2017-07-17] MEDS: SENNOSIDES 8.6 MG TABLET GT SCH (21:11)
[2017-07-17] MEDS: MULTIVIT, IRON, MIN NO. 8, FA 1 TAB GT SCH (21:11)
[2017-07-17] MEDS: LANOLIN/MIN OIL/PETROLAT,WHT 3.5 GM TUBE EACHEYE SCH (21:11)
--- NOTE | 2017-07-18 00:08 | NUR ---
ATIVAN 1MG/ 0.5ML IVP GIVEN ORDERED FOR ANXIETY M/B HIGH HEART RATE OF 130s TO 140s. PT WAS CLEANED AND REPOSITIONED. WILL CONT TO MONITOR ,
[2017-07-18] MEDS: PREVACID (NF) 30 MG TAB GT SCH (05:48)
[2017-07-18] MEDS: BACLOFEN (10 MG) 10 MG TABLET GT SCH ×2 (05:48→18:20)
[2017-07-18] MEDS: RENAL NOVASOURCE 1,000 ML BOTTLE GT PRN (05:49)
[2017-07-18] MEDS: IPRATROPIUM NEB FS 0.5 MG/2.5 ML AMPUL.NEB IH SCH ×2 (07:18→20:15)
[2017-07-18 07:42] VITALS: BP 116/64
[2017-07-18] MEDS: Z GUARD REMEDY 4 OZ OINT TP SCH ×2 (09:00→21:00)
[2017-07-18] MEDS: CELLUVISC EACHEYE SCH ×4 (09:07→21:00)
[2017-07-18] MEDS: FERROUS SULFATE - FOR SA ONLY 330 MG/7.5 ML UDC GT SCH ×2 (09:07→17:29)
[2017-07-18] MEDS: FUROSEMIDE 20 MG TABLET GT SCH (09:07)
[2017-07-18] MEDS: KCL 20 MEQ/15 ML GT SCH (09:07)
[2017-07-18] MEDS: LACTULOSE 20 G/30 ML UDC GT SCH (09:07)
[2017-07-18] MEDS: PROSTAT (PYXIS) 30 ML UDC GT SCH (09:13)
[2017-07-18] MEDS: MIDODRINE HCL (5MG) 5 MG TABLET GT SCH ×2 (09:13→21:00)
[2017-07-18] MEDS: HYDROGEN PEROXIDE 480 ML BOTTLE TP SCH ×2 (09:13→21:00)
[2017-07-18] MEDS: MULTIVIT, IRON, MIN NO. 8, FA 1 TAB GT SCH (21:00)
[2017-07-18 21:08] VITALS: BP 94/55
[2017-07-18] MEDS: SENNOSIDES 8.6 MG TABLET GT SCH (22:11)
[2017-07-18] MEDS: LANOLIN/MIN OIL/PETROLAT,WHT 3.5 GM TUBE EACHEYE SCH (22:11)
[2017-07-19] MEDS: RENAL NOVASOURCE 1,000 ML BOTTLE GT PRN ×2 (04:40→05:09)
[2017-07-19] MEDS: PREVACID (NF) 30 MG TAB GT SCH (05:05)
[2017-07-19] MEDS: BACLOFEN (10 MG) 10 MG TABLET GT SCH ×2 (05:06→17:46)
[2017-07-19] MEDS: IPRATROPIUM NEB FS 0.5 MG/2.5 ML AMPUL.NEB IH SCH ×2 (07:24→19:30)
[2017-07-19 07:42] VITALS: BP 108/62
[2017-07-19] MEDS: PROSTAT (PYXIS) 30 ML UDC GT SCH (08:53)
[2017-07-19] MEDS: LACTULOSE 20 G/30 ML UDC GT SCH (08:53)
[2017-07-19] MEDS: HYDROGEN PEROXIDE 480 ML BOTTLE TP SCH ×2 (08:53→21:09)
[2017-07-19] MEDS: FERROUS SULFATE - FOR SA ONLY 330 MG/7.5 ML UDC GT SCH ×2 (08:53→17:46)
[2017-07-19] MEDS: MIDODRINE HCL (5MG) 5 MG TABLET GT SCH ×2 (08:53→21:00)
[2017-07-19] MEDS: CELLUVISC EACHEYE SCH ×4 (08:53→21:09)
[2017-07-19] MEDS: FUROSEMIDE 20 MG TABLET GT SCH (08:53)
[2017-07-19] MEDS: KCL 20 MEQ/15 ML GT SCH (08:53)
[2017-07-19] MEDS: Z GUARD REMEDY 4 OZ OINT TP SCH ×2 (08:54→21:09)
[2017-07-19 20:19] VITALS: BP 126/62
[2017-07-19] MEDS: LANOLIN/MIN OIL/PETROLAT,WHT 3.5 GM TUBE EACHEYE SCH (21:09)
[2017-07-19] MEDS: MULTIVIT, IRON, MIN NO. 8, FA 1 TAB GT SCH (21:09)
[2017-07-19] MEDS: SENNOSIDES 8.6 MG TABLET GT SCH (21:10)
[2017-07-20] MEDS: PREVACID (NF) 30 MG TAB GT SCH (05:42)
[2017-07-20] MEDS: BACLOFEN (10 MG) 10 MG TABLET GT SCH ×2 (05:42→17:20)
[2017-07-20] MEDS: IPRATROPIUM NEB FS 0.5 MG/2.5 ML AMPUL.NEB IH SCH ×2 (07:31→18:52)
[2017-07-20 07:36] VITALS: BP 89/41
[2017-07-20] MEDS: CELLUVISC EACHEYE SCH ×4 (08:20→21:05)
[2017-07-20] MEDS: LACTULOSE 20 G/30 ML UDC GT SCH (08:20)
[2017-07-20] MEDS: FERROUS SULFATE - FOR SA ONLY 330 MG/7.5 ML UDC GT SCH ×2 (08:20→17:20)
[2017-07-20] MEDS: FUROSEMIDE 20 MG TABLET GT SCH (08:21)
[2017-07-20] MEDS: KCL 20 MEQ/15 ML GT SCH (08:21)
[2017-07-20] MEDS: PROSTAT (PYXIS) 30 ML UDC GT SCH (08:22)
[2017-07-20] MEDS: MIDODRINE HCL (5MG) 5 MG TABLET GT SCH ×2 (08:22→21:05)
[2017-07-20] MEDS: Z GUARD REMEDY 4 OZ OINT TP SCH ×2 (10:00→21:06)
[2017-07-20] MEDS: HYDROGEN PEROXIDE 480 ML BOTTLE TP SCH ×2 (10:00→21:05)
--- NOTE | 2017-07-20 11:00 | NUR ---
Seen by Dr. Dugan. Received order to DC Lorazepam 1 mg IV push and to give Lorazepam 0.5 mg GT q 6 hours PRN for anxiety and respiratory distress for 14 days.
[2017-07-20] MEDS ORDERED: LORAZEPAM 0.5 MG TABLET GT PRN (12:30)
--- NOTE | 2017-07-20 12:35 | NUR ---
Seen by Dr. Macario this morning. Received order to place pt on SIMV 6 PSV 20 Peep 5, titrate SPO2 greater than or equal to 94% on 07/27/17, ABG 1 hour post vent change.
--- NOTE | 2017-07-20 18:19 | NUR ---
RT NOTE RECEIVED PATIENT ON MECHANICAL VENTILATION. TRACH SECURED AND PATENT. AMBU BAG/BACK UP TRACH @ BEDSIDE. VENT PLUGGED INTO RED OUTLET. ALARMS ON AND AUDIBLE. CUFF INFLATED. NO SOB NOTED. WILL CONTINUE TO MONITOR.
[2017-07-20 19:20] VITALS: BP 110/71
[2017-07-20] MEDS: MULTIVIT, IRON, MIN NO. 8, FA 1 TAB GT SCH (21:05)
[2017-07-20] MEDS: LANOLIN/MIN OIL/PETROLAT,WHT 3.5 GM TUBE EACHEYE SCH (21:06)
[2017-07-20] MEDS: SENNOSIDES 8.6 MG TABLET GT SCH (21:06)
[2017-07-21] MEDS: PREVACID (NF) 30 MG TAB GT SCH (05:24)
[2017-07-21] MEDS: BACLOFEN (10 MG) 10 MG TABLET GT SCH ×2 (05:24→17:42)
[2017-07-21] MEDS: IPRATROPIUM NEB FS 0.5 MG/2.5 ML AMPUL.NEB IH SCH ×2 (07:20→14:41)
[2017-07-21] MEDS: PROSTAT (PYXIS) 30 ML UDC GT SCH (09:00)
[2017-07-21] MEDS: Z GUARD REMEDY 4 OZ OINT TP SCH ×2 (09:00→21:30)
[2017-07-21] MEDS: KCL 20 MEQ/15 ML GT SCH (09:00)
[2017-07-21] MEDS: FUROSEMIDE 20 MG TABLET GT SCH (09:00)
[2017-07-21] MEDS: FERROUS SULFATE - FOR SA ONLY 330 MG/7.5 ML UDC GT SCH ×2 (09:00→17:42)
[2017-07-21] MEDS: HYDROGEN PEROXIDE 480 ML BOTTLE TP SCH ×2 (09:00→21:30)
[2017-07-21] MEDS: MIDODRINE HCL (5MG) 5 MG TABLET GT SCH ×2 (09:00→21:30)
[2017-07-21] MEDS: LACTULOSE 20 G/30 ML UDC GT SCH (09:00)
[2017-07-21] MEDS: CELLUVISC EACHEYE SCH ×4 (09:00→21:30)
--- NOTE | 2017-07-21 11:12 | NUR ---
RT NOTE: ABG ORDER FOR TODAY CANCELLED PER . CHARGE NURSE(BRIDGETT) AWARE.
[2017-07-21 20:00] VITALS: BP 98/64
[2017-07-21] MEDS: LANOLIN/MIN OIL/PETROLAT,WHT 3.5 GM TUBE EACHEYE SCH (21:30)
[2017-07-21] MEDS: MULTIVIT, IRON, MIN NO. 8, FA 1 TAB GT SCH (21:30)
[2017-07-21] MEDS: SENNOSIDES 8.6 MG TABLET GT SCH (21:30)
[2017-07-22] MEDS: BACLOFEN (10 MG) 10 MG TABLET GT SCH ×2 (05:12→17:56)
[2017-07-22] MEDS: PREVACID (NF) 30 MG TAB GT SCH (05:12)
[2017-07-22] MEDS: IPRATROPIUM NEB FS 0.5 MG/2.5 ML AMPUL.NEB IH SCH ×2 (07:51→20:35)
[2017-07-22 07:54] VITALS: BP 69/39
[2017-07-22] MEDS: FUROSEMIDE 20 MG TABLET GT SCH (09:00)
[2017-07-22] MEDS: Z GUARD REMEDY 4 OZ OINT TP SCH ×2 (09:12→21:26)
[2017-07-22] MEDS: PROSTAT (PYXIS) 30 ML UDC GT SCH (09:12)
[2017-07-22] MEDS: CELLUVISC EACHEYE SCH ×4 (09:12→21:26)
[2017-07-22] MEDS: KCL 20 MEQ/15 ML GT SCH (09:12)
[2017-07-22] MEDS: LACTULOSE 20 G/30 ML UDC GT SCH (09:12)
[2017-07-22] MEDS: MIDODRINE HCL (5MG) 5 MG TABLET GT SCH ×2 (09:12→21:26)
[2017-07-22] MEDS: FERROUS SULFATE - FOR SA ONLY 330 MG/7.5 ML UDC GT SCH ×2 (09:12→17:56)
[2017-07-22] MEDS: HYDROGEN PEROXIDE 480 ML BOTTLE TP SCH ×2 (09:12→21:26)
[2017-07-22 09:57] VITALS: BP 90/50
[2017-07-22 20:21] VITALS: BP 109/72
[2017-07-22] MEDS: LANOLIN/MIN OIL/PETROLAT,WHT 3.5 GM TUBE EACHEYE SCH (21:26)
[2017-07-22] MEDS: MULTIVIT, IRON, MIN NO. 8, FA 1 TAB GT SCH (21:26)
[2017-07-22] MEDS: SENNOSIDES 8.6 MG TABLET GT SCH (21:26)
[2017-07-22] MEDS: LACTULOSE 10 G/15 ML UDC (PYXIS) GT PRN (23:00)
[2017-07-23] MEDS: PREVACID (NF) 30 MG TAB GT SCH (05:27)
[2017-07-23] MEDS: BACLOFEN (10 MG) 10 MG TABLET GT SCH ×2 (05:27→17:22)
[2017-07-23] MEDS: RENAL NOVASOURCE 1,000 ML BOTTLE GT PRN (05:32)
--- NOTE | 2017-07-23 06:05 | NUR ---
RT RECD PT TRACHED INTACT AND SECURED. BAG NAD MASK AT BEDSIDE. ALARMS ON AND AUDIBLE VENT PLUGGED IN RED OUTLET SX THICK YELLOW MODERATE SECRETIONS. TX GIVEN EUGENIO WELL NO ADVERSE REACTION NOTED ATT
[2017-07-23] MEDS: IPRATROPIUM NEB FS 0.5 MG/2.5 ML AMPUL.NEB IH SCH ×2 (07:14→20:21)
[2017-07-23 07:57] VITALS: BP 106/75
[2017-07-23] MEDS: FERROUS SULFATE - FOR SA ONLY 330 MG/7.5 ML UDC GT SCH ×2 (09:00→16:41)
[2017-07-23] MEDS: LACTULOSE 20 G/30 ML UDC GT SCH (09:00)
[2017-07-23] MEDS: Z GUARD REMEDY 4 OZ OINT TP SCH ×2 (09:00→21:08)
[2017-07-23] MEDS: PROSTAT (PYXIS) 30 ML UDC GT SCH (09:00)
[2017-07-23] MEDS: KCL 20 MEQ/15 ML GT SCH (09:00)
[2017-07-23] MEDS: FUROSEMIDE 20 MG TABLET GT SCH (09:00)
[2017-07-23] MEDS: CELLUVISC EACHEYE SCH ×4 (09:00→21:08)
[2017-07-23] MEDS: HYDROGEN PEROXIDE 480 ML BOTTLE TP SCH ×2 (09:00→21:08)
[2017-07-23] MEDS: MIDODRINE HCL (5MG) 5 MG TABLET GT SCH ×2 (09:00→21:08)
[2017-07-23 19:38] VITALS: BP 98/59
[2017-07-23] MEDS: LANOLIN/MIN OIL/PETROLAT,WHT 3.5 GM TUBE EACHEYE SCH (21:08)
[2017-07-23] MEDS: SENNOSIDES 8.6 MG TABLET GT SCH (21:08)
[2017-07-23] MEDS: MULTIVIT, IRON, MIN NO. 8, FA 1 TAB GT SCH (21:08)
[2017-07-24] MEDS: BACLOFEN (10 MG) 10 MG TABLET GT SCH ×2 (05:31→18:02)
[2017-07-24] MEDS: PREVACID (NF) 30 MG TAB GT SCH (05:31)
[2017-07-24] MEDS: RENAL NOVASOURCE 1,000 ML BOTTLE GT PRN (05:37)
[2017-07-24] MEDS: IPRATROPIUM NEB FS 0.5 MG/2.5 ML AMPUL.NEB IH SCH ×2 (07:36→19:38)
[2017-07-24 08:00] VITALS: BP 98/68
[2017-07-24] MEDS: KCL 20 MEQ/15 ML GT SCH (09:00)
[2017-07-24] MEDS: MIDODRINE HCL (5MG) 5 MG TABLET GT SCH ×2 (09:00→20:55)
[2017-07-24] MEDS: Z GUARD REMEDY 4 OZ OINT TP SCH ×2 (09:00→20:56)
[2017-07-24] MEDS: FERROUS SULFATE - FOR SA ONLY 330 MG/7.5 ML UDC GT SCH ×2 (09:00→16:48)
[2017-07-24] MEDS: HYDROGEN PEROXIDE 480 ML BOTTLE TP SCH ×2 (09:00→20:56)
[2017-07-24] MEDS: PROSTAT (PYXIS) 30 ML UDC GT SCH (09:00)
[2017-07-24] MEDS: FUROSEMIDE 20 MG TABLET GT SCH (09:00)
[2017-07-24] MEDS: CELLUVISC EACHEYE SCH ×4 (09:00→20:55)
[2017-07-24] MEDS: LACTULOSE 20 G/30 ML UDC GT SCH (09:00)
--- NOTE | 2017-07-24 18:09 | NUR ---
RT END OF THE SHIFT REPORT, PT 51 Y OLD FEMALE REMAIN TRACHED ON THE VENT WITH NOTED SETTINGS. PT IS AWAKE BUT DOES NOT FOLLOW COMMANDS. VENT ALARMS ARE SET AND AUDIBLE WITH AMBU BAG AT THE BEDSIDE. DIRECTOR GLOBAL CUFF PRESSURE NOTED. VENT IS PLUGGED INTO RED OUTLET. B/S BILATERALLY RHONCHI SX MODERATE THICK YELLOW SECRETIONS. NO RESPIRATORY DISTRESS NOTED T/O SHIFT, WILL CONTINUE TO MONITOR. REPORT WILL BE GIVEN TO PM SHIFT. Addendum: 07/24/17 at 1811 by LIZBETH PIMENTEL RT Amended: Links added.
--- NOTE | 2017-07-24 18:54 | NUR ---
Routine trach tube changed done by RT, procedure tolerated well. noted with small amount of blood. trach intact at midline, airway patent, connected to vent with prescribed settings as ordered. No SOB noted.
[2017-07-24 19:31] VITALS: BP 99/64
[2017-07-24] MEDS: MULTIVIT, IRON, MIN NO. 8, FA 1 TAB GT SCH (20:55)
[2017-07-24] MEDS: LACTULOSE 10 G/15 ML UDC (PYXIS) GT PRN (20:57)
[2017-07-24] MEDS: LANOLIN/MIN OIL/PETROLAT,WHT 3.5 GM TUBE EACHEYE SCH (21:17)
[2017-07-24] MEDS: SENNOSIDES 8.6 MG TABLET GT SCH (21:17)
[2017-07-25] MEDS: PREVACID (NF) 30 MG TAB GT SCH (05:27)
[2017-07-25] MEDS: LACTULOSE 10 G/15 ML UDC (PYXIS) GT PRN (05:27)
[2017-07-25] MEDS: RENAL NOVASOURCE 1,000 ML BOTTLE GT PRN (05:27)
[2017-07-25] MEDS: BACLOFEN (10 MG) 10 MG TABLET GT SCH ×2 (05:27→17:16)
[2017-07-25] MEDS: IPRATROPIUM NEB FS 0.5 MG/2.5 ML AMPUL.NEB IH SCH ×2 (07:32→19:02)
[2017-07-25 08:00] VITALS: BP 95/58
[2017-07-25] MEDS: FERROUS SULFATE - FOR SA ONLY 330 MG/7.5 ML UDC GT SCH ×2 (09:00→17:16)
[2017-07-25] MEDS: KCL 20 MEQ/15 ML GT SCH (09:00)
[2017-07-25] MEDS: LACTULOSE 20 G/30 ML UDC GT SCH (09:00)
[2017-07-25] MEDS: MIDODRINE HCL (5MG) 5 MG TABLET GT SCH ×2 (09:00→21:00)
[2017-07-25] MEDS: FUROSEMIDE 20 MG TABLET GT SCH (09:00)
[2017-07-25] MEDS: PROSTAT (PYXIS) 30 ML UDC GT SCH (09:00)
[2017-07-25] MEDS: HYDROGEN PEROXIDE 480 ML BOTTLE TP SCH ×2 (09:00→21:00)
[2017-07-25] MEDS: CELLUVISC EACHEYE SCH ×4 (09:00→21:00)
[2017-07-25] MEDS: Z GUARD REMEDY 4 OZ OINT TP SCH ×2 (09:00→21:00)
--- NOTE | 2017-07-25 11:07 | NUR ---
RT PATIENT RECEIVED TRACH'D ON [facility] VENT WITH SETTINGS PER MD ORDER. SEAFOOD AND SERVICE MEAT MANAGER DONE. BILATERAL RHONCHI BREATH SOUNDS ON AUSCULTATION. SPARE TRACH AND AMBU BAG AT BEDSIDE. VENT PLUGGED INTO RED OUTLET. ALARMS ON AND WORKING PROPERLY. SUCTIONED MODERATE AMOUNTS OF THICK, YELLOW SECRETIONS. TX GIVEN ORDERED, NO ADVERSE EFFECTS OBSERVED. NO SIGNS OF DISTRESS NOTED AT THIS TIME. WILL CONTINUE TO MONITOR THE PATIENT FOR ANY CHANGES. Addendum: 07/25/17 at 1733 by KATI DE OLIVEIRA RT Amended: Links added.
[2017-07-25 20:27] VITALS: BP 98/61
[2017-07-25] MEDS: MULTIVIT, IRON, MIN NO. 8, FA 1 TAB GT SCH (21:00)
[2017-07-25] MEDS: SENNOSIDES 8.6 MG TABLET GT SCH (22:04)
[2017-07-25] MEDS: LANOLIN/MIN OIL/PETROLAT,WHT 3.5 GM TUBE EACHEYE SCH (22:04)
[2017-07-25 22:23] VITALS: BP 98/61
[2017-07-26] MEDS: BACLOFEN (10 MG) 10 MG TABLET GT SCH ×2 (05:48→17:40)
[2017-07-26] MEDS: PREVACID (NF) 30 MG TAB GT SCH (05:48)
[2017-07-26] MEDS: IPRATROPIUM NEB FS 0.5 MG/2.5 ML AMPUL.NEB IH SCH ×2 (07:19→20:05)
[2017-07-26 07:58] VITALS: BP 107/55
[2017-07-26] MEDS: FUROSEMIDE 20 MG TABLET GT SCH (08:50)
[2017-07-26] MEDS: CELLUVISC EACHEYE SCH ×4 (08:50→21:20)
[2017-07-26] MEDS: LACTULOSE 20 G/30 ML UDC GT SCH (08:50)
[2017-07-26] MEDS: KCL 20 MEQ/15 ML GT SCH (08:50)
[2017-07-26] MEDS: FERROUS SULFATE - FOR SA ONLY 330 MG/7.5 ML UDC GT SCH ×2 (08:50→16:37)
[2017-07-26] MEDS: PROSTAT (PYXIS) 30 ML UDC GT SCH (08:51)
[2017-07-26] MEDS: HYDROGEN PEROXIDE 480 ML BOTTLE TP SCH ×2 (08:51→21:21)
[2017-07-26] MEDS: Z GUARD REMEDY 4 OZ OINT TP SCH ×2 (08:51→21:21)
[2017-07-26] MEDS: MIDODRINE HCL (5MG) 5 MG TABLET GT SCH ×2 (09:01→21:21)
--- NOTE | 2017-07-26 14:46 | NUR ---
RT RECD PT TRACH'D INTACT AND SECURED. BAG AND MASK AT BEDSIDE. ALARMS ON AND AUDIBLE. TX GIVEN EUGENIO WELL NO ADVERSE REACTION NOTED. SX THICK YELLOW LARGE SECRETIONS NO RESP DISTRESS THROUGH OUT SHIFT
[2017-07-26] MEDS: RENAL NOVASOURCE 1,000 ML BOTTLE GT PRN (16:37)
[2017-07-26 20:00] VITALS: BP 99/77
[2017-07-26] MEDS: LANOLIN/MIN OIL/PETROLAT,WHT 3.5 GM TUBE EACHEYE SCH (21:21)
[2017-07-26] MEDS: SENNOSIDES 8.6 MG TABLET GT SCH (21:21)
[2017-07-26] MEDS: MULTIVIT, IRON, MIN NO. 8, FA 1 TAB GT SCH (21:21)
[2017-07-27] MEDS: BACLOFEN (10 MG) 10 MG TABLET GT SCH ×2 (06:10→18:21)
[2017-07-27] MEDS: PREVACID (NF) 30 MG TAB GT SCH (06:10)
[2017-07-27] MEDS: IPRATROPIUM NEB FS 0.5 MG/2.5 ML AMPUL.NEB IH SCH ×2 (07:27→19:23)
[2017-07-27] MEDS: KCL 20 MEQ/15 ML GT SCH (09:16)
[2017-07-27] MEDS: MIDODRINE HCL (5MG) 5 MG TABLET GT SCH ×2 (09:16→21:16)
[2017-07-27] MEDS: CELLUVISC EACHEYE SCH ×4 (09:16→21:15)
[2017-07-27] MEDS: PROSTAT (PYXIS) 30 ML UDC GT SCH (09:16)
[2017-07-27] MEDS: LACTULOSE 20 G/30 ML UDC GT SCH (09:16)
[2017-07-27] MEDS: FERROUS SULFATE - FOR SA ONLY 330 MG/7.5 ML UDC GT SCH ×2 (09:16→17:00)
[2017-07-27] MEDS: FUROSEMIDE 20 MG TABLET GT SCH (09:16)
[2017-07-27] MEDS: Z GUARD REMEDY 4 OZ OINT TP SCH ×2 (09:45→21:16)
[2017-07-27 09:59] LABS: ABG BASE EXCESS 3.2 mmol/L; ABG OXYGEN SATURATION 96.5 % (92.0-98.5); ABG PCO2 48.2 mmHg (35.0-45.0); ABG PH 7.393 (7.350-7.450); ABG PO2 94.5 mmHg (75.0-100.0); AaDO2 62.8 mmHg; COHb 0.5 % (0.5-1.5); MetHb 0.4 % (0.0-1.5); O2Hb 95.6 % (94.0-97.0); PEEP,BG 5 cm H2O; SITE, ABG Right Radial; VENT MODE, BG SIMV 6 / PS 12; VT, ABG 500 mL
[2017-07-27] MEDS: HYDROGEN PEROXIDE 480 ML BOTTLE TP SCH ×2 (10:45→21:16)
--- NOTE | 2017-07-27 11:08 | NUR ---
Informed mother that kay Hernandez was coming tomorrow for haircuts and asked her if she would like a haircut for the resident. SW informed her that the resident's hair is long and mother stated she has not been here to see her. She stated she was okay with hairdresser cutting off one inch. Reminded kay Hernandez that resident will be getting her haircut tomorrow (one inch).
[2017-07-27 18:07] VITALS: BP 81/56
[2017-07-27 20:52] VITALS: BP 99/50
[2017-07-27] MEDS: LANOLIN/MIN OIL/PETROLAT,WHT 3.5 GM TUBE EACHEYE SCH (21:16)
[2017-07-27] MEDS: SENNOSIDES 8.6 MG TABLET GT SCH (21:16)
[2017-07-27] MEDS: MULTIVIT, IRON, MIN NO. 8, FA 1 TAB GT SCH (21:16)
[2017-07-27 22:06] VITALS: BP 99/50
[2017-07-28] MEDS: PREVACID (NF) 30 MG TAB GT SCH (05:48)
[2017-07-28] MEDS: BACLOFEN (10 MG) 10 MG TABLET GT SCH ×2 (05:48→17:22)
[2017-07-28] MEDS: IPRATROPIUM NEB FS 0.5 MG/2.5 ML AMPUL.NEB IH SCH ×2 (07:08→19:15)
[2017-07-28 07:50] VITALS: BP 103/63
[2017-07-28] MEDS: FERROUS SULFATE - FOR SA ONLY 330 MG/7.5 ML UDC GT SCH ×2 (09:00→17:22)
[2017-07-28] MEDS: HYDROGEN PEROXIDE 480 ML BOTTLE TP SCH ×2 (09:00→21:24)
[2017-07-28] MEDS: CELLUVISC EACHEYE SCH ×4 (09:00→21:24)
[2017-07-28] MEDS: MIDODRINE HCL (5MG) 5 MG TABLET GT SCH ×2 (09:00→20:40)
[2017-07-28] MEDS: PROSTAT (PYXIS) 30 ML UDC GT SCH (09:00)
[2017-07-28] MEDS: FUROSEMIDE 20 MG TABLET GT SCH (09:00)
[2017-07-28] MEDS: KCL 20 MEQ/15 ML GT SCH (09:00)
[2017-07-28] MEDS: Z GUARD REMEDY 4 OZ OINT TP SCH ×2 (09:00→21:24)
[2017-07-28] MEDS: LACTULOSE 20 G/30 ML UDC GT SCH (09:00)
[2017-07-28 20:03] VITALS: BP 133/52
[2017-07-28] MEDS: SENNOSIDES 8.6 MG TABLET GT SCH (21:24)
[2017-07-28] MEDS: MULTIVIT, IRON, MIN NO. 8, FA 1 TAB GT SCH (21:24)
[2017-07-28] MEDS: LANOLIN/MIN OIL/PETROLAT,WHT 3.5 GM TUBE EACHEYE SCH (21:24)
--- NOTE | 2017-07-29 03:45 | NUR ---
pt rec'd trached on [facility] vent settings as charted. pt is stable and trach is intact and midline. no changes made throughout shift. vent plugged into red outlet. ambu bag bedside. alarms are set and audible. will continue to monitor Addendum: 07/29/17 at 0511 by CHIRAG MENDEZ RT Amended: Links added.
[2017-07-29] MEDS: RENAL NOVASOURCE 1,000 ML BOTTLE GT PRN (05:12)
[2017-07-29] MEDS: PREVACID (NF) 30 MG TAB GT SCH (05:12)
[2017-07-29] MEDS: BACLOFEN (10 MG) 10 MG TABLET GT SCH ×2 (05:12→17:28)
[2017-07-29] MEDS: IPRATROPIUM NEB FS 0.5 MG/2.5 ML AMPUL.NEB IH SCH ×2 (07:40→19:54)
[2017-07-29 07:43] VITALS: BP 89/55
[2017-07-29] MEDS: PROSTAT (PYXIS) 30 ML UDC GT SCH (09:00)
[2017-07-29] MEDS: KCL 20 MEQ/15 ML GT SCH (09:00)
[2017-07-29] MEDS: CELLUVISC EACHEYE SCH ×4 (09:00→21:48)
[2017-07-29] MEDS: Z GUARD REMEDY 4 OZ OINT TP SCH ×2 (09:00→21:49)
[2017-07-29] MEDS: FUROSEMIDE 20 MG TABLET GT SCH (09:00)
[2017-07-29] MEDS: HYDROGEN PEROXIDE 480 ML BOTTLE TP SCH ×2 (09:00→21:48)
[2017-07-29] MEDS: FERROUS SULFATE - FOR SA ONLY 330 MG/7.5 ML UDC GT SCH ×2 (09:00→17:28)
[2017-07-29] MEDS: MIDODRINE HCL (5MG) 5 MG TABLET GT SCH ×2 (09:00→21:48)
[2017-07-29] MEDS: LACTULOSE 20 G/30 ML UDC GT SCH (09:00)
[2017-07-29 19:49] VITALS: BP 105/71
[2017-07-29] MEDS: MULTIVIT, IRON, MIN NO. 8, FA 1 TAB GT SCH (21:48)
[2017-07-29] MEDS: LANOLIN/MIN OIL/PETROLAT,WHT 3.5 GM TUBE EACHEYE SCH (21:51)
[2017-07-29] MEDS: SENNOSIDES 8.6 MG TABLET GT SCH (21:51)
[2017-07-30] MEDS: BACLOFEN (10 MG) 10 MG TABLET GT SCH ×2 (05:48→17:01)
[2017-07-30] MEDS: PREVACID (NF) 30 MG TAB GT SCH (05:48)
[2017-07-30] MEDS: RENAL NOVASOURCE 1,000 ML BOTTLE GT PRN (05:48)
[2017-07-30 07:43] VITALS: BP 100/63
[2017-07-30] MEDS: IPRATROPIUM NEB FS 0.5 MG/2.5 ML AMPUL.NEB IH SCH ×2 (08:03→20:02)
[2017-07-30] MEDS: LACTULOSE 20 G/30 ML UDC GT SCH (08:59)
[2017-07-30] MEDS: KCL 20 MEQ/15 ML GT SCH (08:59)
[2017-07-30] MEDS: FERROUS SULFATE - FOR SA ONLY 330 MG/7.5 ML UDC GT SCH ×2 (08:59→17:01)
[2017-07-30] MEDS: FUROSEMIDE 20 MG TABLET GT SCH (08:59)
[2017-07-30] MEDS: CELLUVISC EACHEYE SCH ×4 (08:59→20:01)
[2017-07-30] MEDS: PROSTAT (PYXIS) 30 ML UDC GT SCH (09:00)
[2017-07-30] MEDS: Z GUARD REMEDY 4 OZ OINT TP SCH ×2 (09:00→20:02)
[2017-07-30] MEDS: MIDODRINE HCL (5MG) 5 MG TABLET GT SCH ×2 (09:00→20:01)
[2017-07-30] MEDS: HYDROGEN PEROXIDE 480 ML BOTTLE TP SCH ×2 (09:00→20:02)
--- NOTE | 2017-07-30 10:47 | NUR ---
Called Dr. Gómez's office, field clerk to report redness in the patient's eye. Spoke with Radha and will relay message to .
--- NOTE | 2017-07-30 11:30 | NUR ---
Received a call from Dr. Gómez, can dragger, and reported resident's both eyes are red with slight discharge. New order given for Tobradex 1 drop 4x/ day x 7 days. Order noted and carried out. Notified resident's mom Sabrina regarding new order.
[2017-07-30] MEDS: TOBRAMYCIN/DEXAMETH OPHTH DORPS 2.5 ML BOTTLE EACHEYE SCH ×2 (17:00→20:01)
[2017-07-30 19:35] VITALS: BP 112/75
[2017-07-30] MEDS: MULTIVIT, IRON, MIN NO. 8, FA 1 TAB GT SCH (20:01)
[2017-07-30] MEDS: SENNOSIDES 8.6 MG TABLET GT SCH (21:16)
[2017-07-30] MEDS: LACTULOSE 10 G/15 ML UDC (PYXIS) GT PRN (21:16)
[2017-07-30] MEDS: LANOLIN/MIN OIL/PETROLAT,WHT 3.5 GM TUBE EACHEYE SCH (21:16)
--- NOTE | 2017-07-31 05:00 | NUR ---
pt rec'd trached on [facility] vent settings as charted. pt is stable and trach is intact and midline. no changes made throughout shift. vent plugged into red outlet. ambu bag bedside. alarms are set and audible. will continue to monitor Addendum: 07/31/17 at 0500 by CHIRAG MENDEZ RT Amended: Links added.
[2017-07-31] MEDS: PREVACID (NF) 30 MG TAB GT SCH (05:13)
[2017-07-31] MEDS: RENAL NOVASOURCE 1,000 ML BOTTLE GT PRN (05:13)
[2017-07-31] MEDS: BACLOFEN (10 MG) 10 MG TABLET GT SCH ×2 (05:13→17:36)
--- NOTE | 2017-07-31 06:17 | NUR ---
@ 0143 Pt with X1 episode of anxiety and agitation l/t respiratory distress m/b increased hr 140's, increased rr 40's , unable to relieved by non- pharmacologic interventions, repositioned pt , kept clean and dry, PRN Ativan via gt given as ordered, and noted effective. @ this time pt is comfortably sleeping, tolerated meds, gtf, water flushes and am care. Spo2 97% hr 80 rr 16 , no s/sx of resp distress. Safety measures noted.
[2017-07-31] MEDS: IPRATROPIUM NEB FS 0.5 MG/2.5 ML AMPUL.NEB IH SCH ×2 (07:21→20:12)
[2017-07-31] MEDS: KCL 20 MEQ/15 ML GT SCH (09:26)
[2017-07-31] MEDS: MIDODRINE HCL (5MG) 5 MG TABLET GT SCH ×2 (09:26→20:11)
[2017-07-31] MEDS: LACTULOSE 20 G/30 ML UDC GT SCH (09:26)
[2017-07-31] MEDS: PROSTAT (PYXIS) 30 ML UDC GT SCH (09:26)
[2017-07-31] MEDS: FUROSEMIDE 20 MG TABLET GT SCH (09:26)
[2017-07-31] MEDS: CELLUVISC EACHEYE SCH ×4 (09:26→20:11)
[2017-07-31] MEDS: HYDROGEN PEROXIDE 480 ML BOTTLE TP SCH ×2 (09:26→20:11)
[2017-07-31] MEDS: TOBRAMYCIN/DEXAMETH OPHTH DORPS 2.5 ML BOTTLE EACHEYE SCH ×4 (09:26→20:11)
[2017-07-31] MEDS: FERROUS SULFATE - FOR SA ONLY 330 MG/7.5 ML UDC GT SCH ×2 (09:26→17:36)
[2017-07-31] MEDS: Z GUARD REMEDY 4 OZ OINT TP SCH ×2 (09:26→20:11)
--- NOTE | 2017-07-31 16:54 | NUR ---
RECEIVED PT TRACHED ON VENT SETTINGS NOTED. AIRWAY PATENT AND SECURE. SUCTIONED MODERATE AMOUNT OF THICK YELLOW SECRETIONS. AMBU BAG AT BEDSIDE. VENT ALARMS SET AND AUDIBLE. WILL CONTINUE TO MONITOR PT. Addendum: 07/31/17 at 1655 by JULEE BENTLEY RT Amended: Links added.
[2017-07-31] MEDS: MULTIVIT, IRON, MIN NO. 8, FA 1 TAB GT SCH (20:11)
[2017-07-31] MEDS: LANOLIN/MIN OIL/PETROLAT,WHT 3.5 GM TUBE EACHEYE SCH (21:03)
[2017-07-31] MEDS: SENNOSIDES 8.6 MG TABLET GT SCH (21:03)
[2017-07-31 21:13] VITALS: BP 97/55
[2017-08-01] MEDS: BACLOFEN (10 MG) 10 MG TABLET GT SCH ×2 (05:13→18:20)
[2017-08-01] MEDS: RENAL NOVASOURCE 1,000 ML BOTTLE GT PRN (05:13)
[2017-08-01] MEDS: PREVACID (NF) 30 MG TAB GT SCH (05:13)
[2017-08-01] MEDS: IPRATROPIUM NEB FS 0.5 MG/2.5 ML AMPUL.NEB IH SCH ×2 (07:35→19:42)
[2017-08-01 07:57] VITALS: BP 94/63
[2017-08-01] MEDS: FUROSEMIDE 20 MG TABLET GT SCH (09:00)
[2017-08-01] MEDS: CELLUVISC EACHEYE SCH ×4 (09:34→20:10)
[2017-08-01] MEDS: TOBRAMYCIN/DEXAMETH OPHTH DORPS 2.5 ML BOTTLE EACHEYE SCH ×4 (09:34→20:11)
[2017-08-01] MEDS: LACTULOSE 20 G/30 ML UDC GT SCH (09:35)
[2017-08-01] MEDS: FERROUS SULFATE - FOR SA ONLY 330 MG/7.5 ML UDC GT SCH ×2 (09:36→18:00)
[2017-08-01] MEDS: KCL 20 MEQ/15 ML GT SCH (09:37)
[2017-08-01] MEDS: PROSTAT (PYXIS) 30 ML UDC GT SCH (09:39)
[2017-08-01] MEDS: MIDODRINE HCL (5MG) 5 MG TABLET GT SCH ×2 (09:39→20:12)
[2017-08-01] MEDS: Z GUARD REMEDY 4 OZ OINT TP SCH ×2 (10:00→20:13)
[2017-08-01] MEDS: HYDROGEN PEROXIDE 480 ML BOTTLE TP SCH ×2 (10:00→20:13)
[2017-08-01 20:11] VITALS: BP 89/53
[2017-08-01] MEDS: MULTIVIT, IRON, MIN NO. 8, FA 1 TAB GT SCH (20:13)
[2017-08-01] MEDS: LANOLIN/MIN OIL/PETROLAT,WHT 3.5 GM TUBE EACHEYE SCH (21:47)
[2017-08-01] MEDS: SENNOSIDES 8.6 MG TABLET GT SCH (21:47)
[2017-08-02] MEDS: PREVACID (NF) 30 MG TAB GT SCH (05:07)
[2017-08-02] MEDS: BACLOFEN (10 MG) 10 MG TABLET GT SCH ×2 (05:07→17:28)
[2017-08-02] MEDS: IPRATROPIUM NEB FS 0.5 MG/2.5 ML AMPUL.NEB IH SCH ×2 (07:07→20:22)
[2017-08-02 08:00] VITALS: BP 86/52
[2017-08-02] MEDS: HYDROGEN PEROXIDE 480 ML BOTTLE TP SCH ×2 (09:00→20:18)
[2017-08-02] MEDS: Z GUARD REMEDY 4 OZ OINT TP SCH ×2 (09:00→20:18)
[2017-08-02] MEDS: FUROSEMIDE 20 MG TABLET GT SCH (09:00)
[2017-08-02] MEDS: FERROUS SULFATE - FOR SA ONLY 330 MG/7.5 ML UDC GT SCH ×2 (09:47→17:02)
[2017-08-02] MEDS: KCL 20 MEQ/15 ML GT SCH (09:47)
[2017-08-02] MEDS: CELLUVISC EACHEYE SCH ×4 (09:47→20:16)
[2017-08-02] MEDS: LACTULOSE 20 G/30 ML UDC GT SCH (09:47)
[2017-08-02] MEDS: TOBRAMYCIN/DEXAMETH OPHTH DORPS 2.5 ML BOTTLE EACHEYE SCH ×4 (09:47→20:16)
[2017-08-02] MEDS: MIDODRINE HCL (5MG) 5 MG TABLET GT SCH ×2 (09:50→20:17)
[2017-08-02] MEDS: PROSTAT (PYXIS) 30 ML UDC GT SCH (09:51)
--- NOTE | 2017-08-02 19:31 | NUR ---
Pt was noted with left and right flank redness, upper back redness. Seen by SENIOR UI DEVELOPER Coby Pabon. She said it is not cellulitis, pt has edema and the redness is probably from the edema. No new order.
[2017-08-02 19:59] VITALS: BP 128/77
[2017-08-02] MEDS: MULTIVIT, IRON, MIN NO. 8, FA 1 TAB GT SCH (20:18)
[2017-08-02] MEDS: SENNOSIDES 8.6 MG TABLET GT SCH (21:34)
[2017-08-02] MEDS: LANOLIN/MIN OIL/PETROLAT,WHT 3.5 GM TUBE EACHEYE SCH (21:34)
[2017-08-03] MEDS: BACLOFEN (10 MG) 10 MG TABLET GT SCH ×2 (05:06→18:01)
[2017-08-03] MEDS: PREVACID (NF) 30 MG TAB GT SCH (05:06)
[2017-08-03] MEDS: RENAL NOVASOURCE 1,000 ML BOTTLE GT PRN (05:48)
[2017-08-03 07:32] VITALS: BP 85/51
[2017-08-03] MEDS: IPRATROPIUM NEB FS 0.5 MG/2.5 ML AMPUL.NEB IH SCH ×2 (07:35→19:30)
[2017-08-03] MEDS: FUROSEMIDE 20 MG TABLET GT SCH (09:00)
[2017-08-03] MEDS: CELLUVISC EACHEYE SCH ×4 (09:18→20:11)
[2017-08-03] MEDS: LACTULOSE 20 G/30 ML UDC GT SCH (09:18)
[2017-08-03] MEDS: TOBRAMYCIN/DEXAMETH OPHTH DORPS 2.5 ML BOTTLE EACHEYE SCH ×4 (09:18→20:11)
[2017-08-03] MEDS: FERROUS SULFATE - FOR SA ONLY 330 MG/7.5 ML UDC GT SCH ×2 (09:18→17:00)
[2017-08-03] MEDS: KCL 20 MEQ/15 ML GT SCH (09:19)
[2017-08-03] MEDS: MIDODRINE HCL (5MG) 5 MG TABLET GT SCH ×2 (09:19→20:11)
[2017-08-03] MEDS: PROSTAT (PYXIS) 30 ML UDC GT SCH (09:19)
[2017-08-03] MEDS: Z GUARD REMEDY 4 OZ OINT TP SCH ×2 (09:20→20:12)
[2017-08-03] MEDS: HYDROGEN PEROXIDE 480 ML BOTTLE TP SCH ×2 (09:20→20:12)
[2017-08-03 10:21] LABS: ABG BASE EXCESS 0.9 mmol/L; ABG PCO2 50.7 mmHg (35.0-45.0); ABG PH 7.345 (7.350-7.450); ABG PO2 99.3 mmHg (75.0-100.0); COHb 0.7 % (0.5-1.5); MetHb 0.3 % (0.0-1.5); SITE, ABG Right Radial
--- NOTE | 2017-08-03 11:00 | NUR ---
Resident was on the CPAP ,ABG done after 1 hr.relayed result to ,no change at this time.continue to monitor.
[2017-08-03 15:44] LABS: ABG BASE EXCESS 3.8 mmol/L; ABG OXYGEN SATURATION 98.2 % (92.0-98.5); ABG PCO2 48.6 mmHg (35.0-45.0); ABG PH 7.397 (7.350-7.450); ABG PO2 133.4 mmHg (75.0-100.0); AaDO2 23.4 mmHg; COHb 0.3 % (0.5-1.5); MetHb 0.8 % (0.0-1.5); O2Hb 97.1 % (94.0-97.0); SITE, ABG Right Radial; VENT MODE, BG CPAP 5 / PS 12
--- NOTE | 2017-08-03 17:00 | NUR ---
ABG done at 1500, made aware result by RT Dwayne,Got new orders from RT for vent changes CPAP -5,PS-20,fiO2 ,noted and carried out.
[2017-08-03] MEDS: MULTIVIT, IRON, MIN NO. 8, FA 1 TAB GT SCH (20:11)
[2017-08-03 20:17] VITALS: BP 101/69
[2017-08-03] MEDS: SENNOSIDES 8.6 MG TABLET GT SCH (21:54)
[2017-08-03] MEDS: LANOLIN/MIN OIL/PETROLAT,WHT 3.5 GM TUBE EACHEYE SCH (21:54)
[2017-08-04] MEDS: BACLOFEN (10 MG) 10 MG TABLET GT SCH ×2 (05:27→17:08)
[2017-08-04] MEDS: PREVACID (NF) 30 MG TAB GT SCH (05:27)
[2017-08-04 07:32] VITALS: BP 91/55
[2017-08-04] MEDS: IPRATROPIUM NEB FS 0.5 MG/2.5 ML AMPUL.NEB IH SCH ×2 (07:39→20:04)
[2017-08-04] MEDS: LACTULOSE 20 G/30 ML UDC GT SCH (08:09)
[2017-08-04] MEDS: TOBRAMYCIN/DEXAMETH OPHTH DORPS 2.5 ML BOTTLE EACHEYE SCH ×4 (08:09→21:00)
[2017-08-04] MEDS: CELLUVISC EACHEYE SCH ×4 (08:09→21:00)
[2017-08-04] MEDS: FERROUS SULFATE - FOR SA ONLY 330 MG/7.5 ML UDC GT SCH ×2 (08:10→17:08)
[2017-08-04] MEDS: KCL 20 MEQ/15 ML GT SCH (08:11)
[2017-08-04] MEDS: FUROSEMIDE 20 MG TABLET GT SCH (08:12)
[2017-08-04] MEDS: MIDODRINE HCL (5MG) 5 MG TABLET GT SCH ×2 (08:13→21:01)
[2017-08-04] MEDS: Z GUARD REMEDY 4 OZ OINT TP SCH ×2 (08:13→21:01)
[2017-08-04] MEDS: PROSTAT (PYXIS) 30 ML UDC GT SCH (08:13)
[2017-08-04] MEDS: HYDROGEN PEROXIDE 480 ML BOTTLE TP SCH ×2 (11:50→21:01)
--- NOTE | 2017-08-04 17:06 | NUR ---
RT PATIENT RECEIVED ON MECHANICAL VENTILATION. TX GIVEN ORDERED, NO ADVERSE REACTIONS NOTED. SUCTION DONE. TRACH SECURED AND PATENT AT ALL TIMES. NO SOB NOTED. ALARMS ON AND AUDIBLE. VENT IS PLUGGED INTO RED OUTLET. AMBU BAG/BACK UP TRACH @ BEDSIDE. MONITORED CLOSELY Addendum: 08/04/17 at 1706 by MARLIN AGUILAR RT Amended: Links added.
[2017-08-04 20:30] VITALS: BP 111/86
[2017-08-04] MEDS: SENNOSIDES 8.6 MG TABLET GT SCH (21:01)
[2017-08-04] MEDS: MULTIVIT, IRON, MIN NO. 8, FA 1 TAB GT SCH (21:01)
[2017-08-04] MEDS: LANOLIN/MIN OIL/PETROLAT,WHT 3.5 GM TUBE EACHEYE SCH (22:07)
[2017-08-05] MEDS: BACLOFEN (10 MG) 10 MG TABLET GT SCH ×2 (05:33→17:21)
[2017-08-05] MEDS: PREVACID (NF) 30 MG TAB GT SCH (05:33)
[2017-08-05] MEDS: RENAL NOVASOURCE 1,000 ML BOTTLE GT PRN (05:48)
--- NOTE | 2017-08-05 06:47 | NUR ---
Pt had apneic episodes on and off during the night.RT aware will continue to monitor and will endorse.
[2017-08-05] MEDS: IPRATROPIUM NEB FS 0.5 MG/2.5 ML AMPUL.NEB IH SCH ×2 (07:59→19:57)
[2017-08-05 08:05] VITALS: BP 107/98
[2017-08-05] MEDS: FUROSEMIDE 20 MG TABLET GT SCH (09:00)
[2017-08-05] MEDS: LACTULOSE 20 G/30 ML UDC GT SCH (09:35)
[2017-08-05] MEDS: KCL 20 MEQ/15 ML GT SCH (09:35)
[2017-08-05] MEDS: CELLUVISC EACHEYE SCH ×4 (09:35→20:08)
[2017-08-05] MEDS: FERROUS SULFATE - FOR SA ONLY 330 MG/7.5 ML UDC GT SCH ×2 (09:35→17:21)
[2017-08-05] MEDS: TOBRAMYCIN/DEXAMETH OPHTH DORPS 2.5 ML BOTTLE EACHEYE SCH ×4 (09:35→20:08)
[2017-08-05] MEDS: Z GUARD REMEDY 4 OZ OINT TP SCH ×2 (09:36→20:09)
[2017-08-05] MEDS: PROSTAT (PYXIS) 30 ML UDC GT SCH (09:36)
[2017-08-05] MEDS: MIDODRINE HCL (5MG) 5 MG TABLET GT SCH ×2 (09:36→20:08)
[2017-08-05] MEDS: HYDROGEN PEROXIDE 480 ML BOTTLE TP SCH ×2 (09:36→20:09)
[2017-08-05 10:00] VITALS: BP 95/58
--- NOTE | 2017-08-05 16:31 | NUR ---
RT NOTE: PATIENT RECEIVED TRACHED ON MECHANICAL VENT. ALARMS VERIFIED AND AUDIBLE. PATIENT HAD 1 EPISODE OF APNEA. IT APPLICATIONS MANAGER(YAZMIN) AWARE. SUCTIONED AND LAVAGED THICK JOHN SECRETIONS. VENT PLUGGED INTO RED OUTLET. AMBU BAG AND NEW TRACH AT [facility]
--- NOTE | 2017-08-05 19:57 | NUR ---
pt has episodes of apnea. no distress noted. 02 sat @ 99%. will continue to monitor Addendum: 08/05/17 at 2207 by CHIRAG MENDEZ RT Amended: Links added.
[2017-08-05] MEDS: MULTIVIT, IRON, MIN NO. 8, FA 1 TAB GT SCH (20:08)
[2017-08-05] MEDS: LACTULOSE 10 G/15 ML UDC (PYXIS) GT PRN (20:09)
[2017-08-05] MEDS: LANOLIN/MIN OIL/PETROLAT,WHT 3.5 GM TUBE EACHEYE SCH (21:06)
[2017-08-05] MEDS: SENNOSIDES 8.6 MG TABLET GT SCH (21:06)
[2017-08-05 21:07] VITALS: BP 98/57
[2017-08-06] MEDS: LACTULOSE 10 G/15 ML UDC (PYXIS) GT PRN ×2 (05:22→20:31)
[2017-08-06] MEDS: PREVACID (NF) 30 MG TAB GT SCH (05:22)
[2017-08-06] MEDS: BACLOFEN (10 MG) 10 MG TABLET GT SCH ×2 (05:22→18:32)
[2017-08-06] MEDS: RENAL NOVASOURCE 1,000 ML BOTTLE GT PRN (05:22)
[2017-08-06 07:43] VITALS: BP 92/59
[2017-08-06] MEDS: IPRATROPIUM NEB FS 0.5 MG/2.5 ML AMPUL.NEB IH SCH ×2 (08:11→19:30)
[2017-08-06] MEDS: FUROSEMIDE 20 MG TABLET GT SCH (08:31)
[2017-08-06] MEDS: LACTULOSE 20 G/30 ML UDC GT SCH (08:31)
[2017-08-06] MEDS: FERROUS SULFATE - FOR SA ONLY 330 MG/7.5 ML UDC GT SCH ×2 (08:31→16:47)
[2017-08-06] MEDS: MIDODRINE HCL (5MG) 5 MG TABLET GT SCH ×2 (08:31→20:30)
[2017-08-06] MEDS: CELLUVISC EACHEYE SCH ×4 (08:31→20:30)
[2017-08-06] MEDS: HYDROGEN PEROXIDE 480 ML BOTTLE TP SCH ×2 (08:31→20:30)
[2017-08-06] MEDS: PROSTAT (PYXIS) 30 ML UDC GT SCH (08:31)
[2017-08-06] MEDS: TOBRAMYCIN/DEXAMETH OPHTH DORPS 2.5 ML BOTTLE EACHEYE SCH ×2 (08:31→13:28)
[2017-08-06] MEDS: KCL 20 MEQ/15 ML GT SCH (08:31)
[2017-08-06] MEDS: Z GUARD REMEDY 4 OZ OINT TP SCH ×2 (08:31→20:31)
--- NOTE | 2017-08-06 13:40 | NUR ---
Notified Dr. Macario resident with episode of apnea, no distress, with current vent setting of CPAP Peep 5, PS 20 Fi02 30%, O2 sat. remain above 96%. NNO given by MD. Resident also completed Tobradex eye drops, both eyes no longer red and no drainage.
[2017-08-06 19:43] VITALS: BP 99/56
[2017-08-06] MEDS: MULTIVIT, IRON, MIN NO. 8, FA 1 TAB GT SCH (20:30)
[2017-08-06] MEDS: LANOLIN/MIN OIL/PETROLAT,WHT 3.5 GM TUBE EACHEYE SCH (21:18)
[2017-08-06] MEDS: SENNOSIDES 8.6 MG TABLET GT SCH (21:18)
[2017-08-07] MEDS: BACLOFEN (10 MG) 10 MG TABLET GT SCH ×2 (05:03→17:54)
[2017-08-07] MEDS: PREVACID (NF) 30 MG TAB GT SCH (05:03)
[2017-08-07] MEDS: RENAL NOVASOURCE 1,000 ML BOTTLE GT PRN (05:03)
[2017-08-07] MEDS: IPRATROPIUM NEB FS 0.5 MG/2.5 ML AMPUL.NEB IH SCH ×2 (07:19→19:00)
[2017-08-07 07:48] VITALS: BP 96/47
[2017-08-07] MEDS: CELLUVISC EACHEYE SCH ×4 (08:22→20:06)
[2017-08-07] MEDS: MIDODRINE HCL (5MG) 5 MG TABLET GT SCH ×2 (08:22→20:06)
[2017-08-07] MEDS: KCL 20 MEQ/15 ML GT SCH (08:22)
[2017-08-07] MEDS: PROSTAT (PYXIS) 30 ML UDC GT SCH (08:22)
[2017-08-07] MEDS: FERROUS SULFATE - FOR SA ONLY 330 MG/7.5 ML UDC GT SCH ×2 (08:22→17:54)
[2017-08-07] MEDS: FUROSEMIDE 20 MG TABLET GT SCH (08:22)
[2017-08-07] MEDS: HYDROGEN PEROXIDE 480 ML BOTTLE TP SCH ×2 (08:22→20:06)
[2017-08-07] MEDS: LACTULOSE 20 G/30 ML UDC GT SCH (08:22)
[2017-08-07] MEDS: Z GUARD REMEDY 4 OZ OINT TP SCH ×2 (08:23→20:06)
[2017-08-07 09:30] VITALS: BP 94/60
[2017-08-07] MEDS: MULTIVIT, IRON, MIN NO. 8, FA 1 TAB GT SCH (20:06)
[2017-08-07] MEDS: LACTULOSE 10 G/15 ML UDC (PYXIS) GT PRN (20:07)
[2017-08-07] MEDS: SENNOSIDES 8.6 MG TABLET GT SCH (21:08)
[2017-08-07] MEDS: LANOLIN/MIN OIL/PETROLAT,WHT 3.5 GM TUBE EACHEYE SCH (21:08)
[2017-08-07 21:33] VITALS: BP 106/64
[2017-08-08] MEDS: RENAL NOVASOURCE 1,000 ML BOTTLE GT PRN (05:19)
[2017-08-08] MEDS: BACLOFEN (10 MG) 10 MG TABLET GT SCH ×2 (05:19→18:16)
[2017-08-08] MEDS: PREVACID (NF) 30 MG TAB GT SCH (05:19)
[2017-08-08 07:43] VITALS: BP 124/77
[2017-08-08] MEDS: IPRATROPIUM NEB FS 0.5 MG/2.5 ML AMPUL.NEB IH SCH ×2 (07:48→20:30)
[2017-08-08] MEDS: KCL 20 MEQ/15 ML GT SCH (09:00)
[2017-08-08] MEDS: MIDODRINE HCL (5MG) 5 MG TABLET GT SCH ×2 (09:00→20:35)
[2017-08-08] MEDS: FERROUS SULFATE - FOR SA ONLY 330 MG/7.5 ML UDC GT SCH ×2 (09:00→16:11)
[2017-08-08] MEDS: LACTULOSE 20 G/30 ML UDC GT SCH (09:00)
[2017-08-08] MEDS: HYDROGEN PEROXIDE 480 ML BOTTLE TP SCH ×2 (09:00→20:36)
[2017-08-08] MEDS: Z GUARD REMEDY 4 OZ OINT TP SCH ×2 (09:00→20:36)
[2017-08-08] MEDS: CELLUVISC EACHEYE SCH ×4 (09:00→20:35)
[2017-08-08] MEDS: PROSTAT (PYXIS) 30 ML UDC GT SCH (09:00)
[2017-08-08] MEDS: FUROSEMIDE 20 MG TABLET GT SCH (09:00)
[2017-08-08 19:16] VITALS: BP 102/66
--- NOTE | 2017-08-08 20:30 | NUR ---
RT NOTE PATIENT RECEIVED IN STABLE CONDITION ON MECHANICAL VENT. PATIENT IS TOLERATING CURRENT ORDERED SETTINGS. NO SIGNS OF RESPIRATORY DISTRESS NOTED. TREACH IS PATENT AND SECURE. ALARMS ARE SET AND AUDIBLE. MECHANICAL VENT IS PLUGGED INTO RED OUTLET. AMBU BAG IS AT PATIENT BEDSIDE. WILL CONTINUE TO MONITOR. Addendum: 08/09/17 at 0412 by NANI PALMA RT Amended: Links added.
[2017-08-08] MEDS: MULTIVIT, IRON, MIN NO. 8, FA 1 TAB GT SCH (20:36)
[2017-08-08] MEDS: SENNOSIDES 8.6 MG TABLET GT SCH (21:59)
[2017-08-08] MEDS: LANOLIN/MIN OIL/PETROLAT,WHT 3.5 GM TUBE EACHEYE SCH (21:59)
[2017-08-09] MEDS: BACLOFEN (10 MG) 10 MG TABLET GT SCH ×2 (05:18→17:07)
[2017-08-09] MEDS: PREVACID (NF) 30 MG TAB GT SCH (05:18)
[2017-08-09] MEDS: IPRATROPIUM NEB FS 0.5 MG/2.5 ML AMPUL.NEB IH SCH ×2 (06:56→14:11)
[2017-08-09 07:38] VITALS: BP 103/75
[2017-08-09] MEDS: MIDODRINE HCL (5MG) 5 MG TABLET GT SCH ×2 (09:00→20:10)
[2017-08-09] MEDS: LACTULOSE 20 G/30 ML UDC GT SCH (09:00)
[2017-08-09] MEDS: PROSTAT (PYXIS) 30 ML UDC GT SCH (09:00)
[2017-08-09] MEDS: FUROSEMIDE 20 MG TABLET GT SCH (09:00)
[2017-08-09] MEDS: KCL 20 MEQ/15 ML GT SCH (09:00)
[2017-08-09] MEDS: FERROUS SULFATE - FOR SA ONLY 330 MG/7.5 ML UDC GT SCH ×2 (09:00→17:07)
[2017-08-09] MEDS: HYDROGEN PEROXIDE 480 ML BOTTLE TP SCH ×2 (09:00→20:11)
[2017-08-09] MEDS: Z GUARD REMEDY 4 OZ OINT TP SCH ×2 (09:00→20:11)
[2017-08-09] MEDS: CELLUVISC EACHEYE SCH ×4 (09:00→20:10)
--- NOTE | 2017-08-09 18:26 | NUR ---
RT NOTE PT IN STABLE CONDITION. PT REMAINS ON VENT ON SETTINGS PRESCRIBED. ALARMS SET PER PROTOCOL AND AUDIBLE. TRACH MIDLINE AND SECURE. VENT PLUGGED IN TO RED OUTLET. AMBU BAG AT BED SIDE. NO DISTRESS NOTED.
[2017-08-09] MEDS: MULTIVIT, IRON, MIN NO. 8, FA 1 TAB GT SCH (20:11)
[2017-08-09 20:23] VITALS: BP 100/54
[2017-08-09] MEDS: SENNOSIDES 8.6 MG TABLET GT SCH (22:01)
[2017-08-09] MEDS: LANOLIN/MIN OIL/PETROLAT,WHT 3.5 GM TUBE EACHEYE SCH (22:01)
[2017-08-10] MEDS: BACLOFEN (10 MG) 10 MG TABLET GT SCH ×2 (05:31→17:11)
[2017-08-10] MEDS: PREVACID (NF) 30 MG TAB GT SCH (05:31)
[2017-08-10] MEDS: IPRATROPIUM NEB FS 0.5 MG/2.5 ML AMPUL.NEB IH SCH ×2 (07:57→19:50)
[2017-08-10 08:03] VITALS: BP 125/66
[2017-08-10] MEDS: KCL 20 MEQ/15 ML GT SCH (09:10)
[2017-08-10] MEDS: CELLUVISC EACHEYE SCH ×4 (09:10→20:13)
[2017-08-10] MEDS: LACTULOSE 20 G/30 ML UDC GT SCH (09:10)
[2017-08-10] MEDS: FERROUS SULFATE - FOR SA ONLY 330 MG/7.5 ML UDC GT SCH ×2 (09:10→17:11)
[2017-08-10] MEDS: MIDODRINE HCL (5MG) 5 MG TABLET GT SCH ×2 (09:10→20:13)
[2017-08-10] MEDS: FUROSEMIDE 20 MG TABLET GT SCH (09:10)
[2017-08-10] MEDS: PROSTAT (PYXIS) 30 ML UDC GT SCH (09:10)
[2017-08-10] MEDS: Z GUARD REMEDY 4 OZ OINT TP SCH ×2 (09:11→20:13)
[2017-08-10] MEDS: HYDROGEN PEROXIDE 480 ML BOTTLE TP SCH ×2 (09:11→20:13)
[2017-08-10 12:58] VITALS: BP 105/66
--- NOTE | 2017-08-10 14:00 | NUR ---
Seen today by Dr. Macario. Received order to place pt on cool aerosol tomorrow and do ABG 1 hour post vent change. Notified pt's mother and sister.
[2017-08-10] MEDS: RENAL NOVASOURCE 1,000 ML BOTTLE GT PRN (14:42)
--- NOTE | 2017-08-10 15:54 | NUR ---
Informed sister Judith about IDT meeting this upcoming Wednesday from 12:30-1:30PM. She stated that she does not want to attend and that she and Dr. Macario disagree on several things. She stated that she would actually like for the resident to be transferred to a closer facility in [place] is where she [place]. Judith immediately called SW back and stated that she wants to talk to the primary care doctor first (Dr. Kvng Alfaro) and SW provided her with his office number. SW still asked if she wanted for her to look for alternative facilities in [place] and she stated "no." She reported she would talk to the primary doctor first. Charge nurse informed.
[2017-08-10] MEDS: MULTIVIT, IRON, MIN NO. 8, FA 1 TAB GT SCH (20:12)
[2017-08-10 20:47] VITALS: BP 114/59
[2017-08-10] MEDS: SENNOSIDES 8.6 MG TABLET GT SCH (22:07)
[2017-08-10] MEDS: LANOLIN/MIN OIL/PETROLAT,WHT 3.5 GM TUBE EACHEYE SCH (22:07)
--- NOTE | 2017-08-11 05:16 | NUR ---
PT RECEIVED ON VENT WITH CHARTED SETTINGS. TRACH SECURE & PATENT, ASSOCIATE PROFESSOR OF EDUCATION DONE. BREATHING TX ADMIN, NO ADVERSE REACTION NOTED. PT SX Q2 & PRN FOR MODERATE AMOUNT OF YELLOW THICK SECRETIONS . VENT PLUGGED INTO RED OUTLET. VENT ALARMS SET, CHECKED AND AUDIBLE THROUGHOUT SUBACUTE STATION. AMBU BAG & SPARE TRACH AT HEAD PF BED. ORAL CARE DONE. WILL CONTINUE TO MONITOR PT. Addendum: 08/11/17 at 0517 by ELVIRA CHEN RT Amended: Links added.
[2017-08-11] MEDS: BACLOFEN (10 MG) 10 MG TABLET GT SCH ×2 (05:27→17:44)
[2017-08-11] MEDS: PREVACID (NF) 30 MG TAB GT SCH (05:27)
[2017-08-11] MEDS: IPRATROPIUM NEB FS 0.5 MG/2.5 ML AMPUL.NEB IH SCH ×2 (07:20→19:35)
[2017-08-11 08:00] VITALS: BP 99/61
--- NOTE | 2017-08-11 08:22 | NUR ---
@0815: PLACED PT ON COOL AEROSOL, 98%, 10/L ORDERED BY DR HERNANDEZ TO KEEP SAT > 94%. HR: 109, SPO2: 98%, RESP RATE: 10 ON CPAP MODE. @0822: PT DID NOT TOLERATE COOL AEROSOL AT THIS TIME. PT DESAT, TACHYPNEIC, INCREASED WOB, HR INCREASED WELL. PLACED PT BACK ON VENT CPAP MODE. PT SPO2: 88%, RESP RATE: 34, HR: 135. SHREDDER TENDER PEAT NOTIFIED. WILL CONTINUE TO MONITOR PT.
--- NOTE | 2017-08-11 08:40 | NUR ---
Notified Dr. Macario resident did not tolerate weaning and RT placed her back in ventilator on CPAP.
[2017-08-11] MEDS: HYDROGEN PEROXIDE 480 ML BOTTLE TP SCH ×2 (09:00→21:02)
[2017-08-11] MEDS: KCL 20 MEQ/15 ML GT SCH (09:00)
[2017-08-11] MEDS: FERROUS SULFATE - FOR SA ONLY 330 MG/7.5 ML UDC GT SCH ×2 (09:00→16:18)
[2017-08-11] MEDS: Z GUARD REMEDY 4 OZ OINT TP SCH ×2 (09:00→21:02)
[2017-08-11] MEDS: MIDODRINE HCL (5MG) 5 MG TABLET GT SCH ×2 (09:00→21:01)
[2017-08-11] MEDS: PROSTAT (PYXIS) 30 ML UDC GT SCH (09:00)
[2017-08-11] MEDS: CELLUVISC EACHEYE SCH ×4 (09:00→21:01)
[2017-08-11] MEDS: FUROSEMIDE 20 MG TABLET GT SCH (09:00)
[2017-08-11] MEDS: LACTULOSE 20 G/30 ML UDC GT SCH (09:00)
--- NOTE | 2017-08-11 16:50 | NUR ---
RECEIVED PT TRACHED ON VENT SETTINGS NOTED. ORAL CARE AND TRACH SUCTIONED MODERATE AMNT OF THICK YELLOW, SECRETIONS. AMBU BAG AT BEDSIDE. VENT ALARMS SET AND AUDIBLE. PT FAILED COOL AEROSOL WEANING BUT REMAINS STABLE ON VENT CPAP MODE. WILL CONTINUE TO MONITOR PT.
[2017-08-11] MEDS: LORAZEPAM 0.5 MG TABLET GT PRN (17:30)
--- NOTE | 2017-08-11 18:00 | NUR ---
Notified resident's mother Sabrina and her sister Judith that patient failed from ventilator weaning this morning. Resident desated a few minutes after she was placed on cool aerosol. O2 sat in the 80's and became tachycardic at 135. RT put her back on CPAP. Judith said " I will continue for you guys to do your job, my sister knows my intent and would like to step back. I will not make myself upset". When asked what it is that makes her upset? She said " I believe his doctor dos not think she will come out of it. Explained to Judith that when a patient is ready to be weaned off the ventilator, the body will respond however if the patient cannot tolerate it, it means her body is not ready. Judith also added, "after two years it feels discouraging, I pray that things will work out, my expectations is for her to be the same when she first got there or better". Allowed resident to verbalized her feelings and closed the conversation by saying she might come this week.
[2017-08-11 20:21] VITALS: BP 104/65
[2017-08-11] MEDS: SENNOSIDES 8.6 MG TABLET GT SCH (21:02)
[2017-08-11] MEDS: MULTIVIT, IRON, MIN NO. 8, FA 1 TAB GT SCH (21:02)
[2017-08-11] MEDS: LANOLIN/MIN OIL/PETROLAT,WHT 3.5 GM TUBE EACHEYE SCH (21:02)
[2017-08-11] MEDS: ACETAMINOPHEN 650 MG/20 ML UDC- FOR SA PATIENTS ONLY GT PRN (21:03)
[2017-08-11] MEDS: RENAL NOVASOURCE 1,000 ML BOTTLE GT PRN (21:15)
[2017-08-12] MEDS: LORAZEPAM 0.5 MG TABLET GT PRN (02:20)
--- NOTE | 2017-08-12 02:30 | NUR ---
Pt with episodes of increase HR fluctuating from 100 to 135,no desaturation noted,looks agitated.Repositioned not effective.Ativan 0.5 mg via gt.kept comfortable and will continue to monitor.
--- NOTE | 2017-08-12 03:00 | NUR ---
Pt asleep HR down to 99-100,looks comfortable.HOB elevated.
--- NOTE | 2017-08-12 03:30 | NUR ---
Noted with emesis approx 30cc undigested milk,no residual aspirated,hold feeding for now and Zofran given via gt as ordered.Suctioned and HOB kept elevated.Will continue to monitor.
[2017-08-12] MEDS: ONDANSETRON 4 MG TAB.RAPDIS GT PRN (03:34)
[2017-08-12] MEDS: BACLOFEN (10 MG) 10 MG TABLET GT SCH ×2 (05:41→18:30)
[2017-08-12] MEDS: PREVACID (NF) 30 MG TAB GT SCH (05:41)
--- NOTE | 2017-08-12 06:06 | NUR ---
Pt calm and sleeping.HR 78 ,O2 sats 100%.No more emesis.Will endorse.
[2017-08-12 07:37] VITALS: BP 102/55
[2017-08-12] MEDS: IPRATROPIUM NEB FS 0.5 MG/2.5 ML AMPUL.NEB IH SCH ×2 (08:08→19:00)
[2017-08-12] MEDS: LACTULOSE 20 G/30 ML UDC GT SCH (08:37)
[2017-08-12] MEDS: KCL 20 MEQ/15 ML GT SCH (08:37)
[2017-08-12] MEDS: CELLUVISC EACHEYE SCH ×4 (08:37→21:01)
[2017-08-12] MEDS: FUROSEMIDE 20 MG TABLET GT SCH (08:37)
[2017-08-12] MEDS: PROSTAT (PYXIS) 30 ML UDC GT SCH (08:37)
[2017-08-12] MEDS: MIDODRINE HCL (5MG) 5 MG TABLET GT SCH ×2 (08:37→21:01)
[2017-08-12] MEDS: FERROUS SULFATE - FOR SA ONLY 330 MG/7.5 ML UDC GT SCH ×2 (08:37→17:00)
[2017-08-12] MEDS: Z GUARD REMEDY 4 OZ OINT TP SCH ×4 (09:00→21:01)
[2017-08-12] MEDS: HYDROGEN PEROXIDE 480 ML BOTTLE TP SCH ×2 (09:00→21:01)
[2017-08-12 19:45] VITALS: BP 107/69
[2017-08-12] MEDS: MULTIVIT, IRON, MIN NO. 8, FA 1 TAB GT SCH (21:01)
[2017-08-12] MEDS: LANOLIN/MIN OIL/PETROLAT,WHT 3.5 GM TUBE EACHEYE SCH (21:01)
[2017-08-12] MEDS: SENNOSIDES 8.6 MG TABLET GT SCH (21:01)
[2017-08-12] MEDS: RENAL NOVASOURCE 1,000 ML BOTTLE GT PRN (22:08)
[2017-08-13] MEDS: PREVACID (NF) 30 MG TAB GT SCH (05:15)
[2017-08-13] MEDS: BACLOFEN (10 MG) 10 MG TABLET GT SCH ×2 (05:15→18:12)
[2017-08-13 07:39] VITALS: BP 95/44
[2017-08-13] MEDS: IPRATROPIUM NEB FS 0.5 MG/2.5 ML AMPUL.NEB IH SCH ×2 (07:49→20:39)
[2017-08-13] MEDS: CELLUVISC EACHEYE SCH ×4 (08:40→20:18)
[2017-08-13] MEDS: FERROUS SULFATE - FOR SA ONLY 330 MG/7.5 ML UDC GT SCH ×2 (08:41→16:24)
[2017-08-13] MEDS: LACTULOSE 20 G/30 ML UDC GT SCH (08:41)
[2017-08-13] MEDS: KCL 20 MEQ/15 ML GT SCH (08:42)
[2017-08-13] MEDS: FUROSEMIDE 20 MG TABLET GT SCH (08:44)
[2017-08-13] MEDS: PROSTAT (PYXIS) 30 ML UDC GT SCH ×2 (08:44→16:24)
[2017-08-13] MEDS: Z GUARD REMEDY 4 OZ OINT TP SCH ×4 (08:44→20:19)
[2017-08-13] MEDS: MIDODRINE HCL (5MG) 5 MG TABLET GT SCH ×2 (08:44→20:18)
[2017-08-13] MEDS: HYDROGEN PEROXIDE 480 ML BOTTLE TP SCH ×2 (10:00→20:18)
--- NOTE | 2017-08-13 14:13 | NUR ---
INTERDISCIPLINARY PLAN OF CARE CONFERENCE was held today. Sister Judith did not want to attend. Dr. Macario and the interdisciplinary team discussed the current plan of care in detail. Current orders as well as treatments and medications were reviewed. Order to add Prostat BID was given. No other orders were given.
--- NOTE | 2017-08-13 18:00 | NUR ---
Spoke with resident's mother Sabrina notifying her of the new order for Prostat given by Dr. Macario in IDT meeting. It was mentioned by SSD in the meeting that family is considering moving patient to a facility closer to where they live, however they want to talk to patient's attending physician first. Inform patient's mother Sabrina that it will be endorsed to AM CN to notify attending MD on Wednesday regarding family's concerns. Appreciated the call and the care rendered by staff to the patient.
[2017-08-13 19:40] VITALS: BP 102/64
[2017-08-13] MEDS: MULTIVIT, IRON, MIN NO. 8, FA 1 TAB GT SCH (20:18)
[2017-08-13] MEDS: SENNOSIDES 8.6 MG TABLET GT SCH (21:22)
[2017-08-13] MEDS: LANOLIN/MIN OIL/PETROLAT,WHT 3.5 GM TUBE EACHEYE SCH (21:22)
[2017-08-13] MEDS: RENAL NOVASOURCE 1,000 ML BOTTLE GT PRN (22:27)
[2017-08-14] MEDS: PREVACID (NF) 30 MG TAB GT SCH (05:20)
[2017-08-14] MEDS: BACLOFEN (10 MG) 10 MG TABLET GT SCH ×2 (05:20→17:23)
[2017-08-14 07:28] VITALS: BP 98/54
[2017-08-14] MEDS: IPRATROPIUM NEB FS 0.5 MG/2.5 ML AMPUL.NEB IH SCH ×2 (07:34→19:48)
[2017-08-14] MEDS: MIDODRINE HCL (5MG) 5 MG TABLET GT SCH ×2 (09:27→21:04)
[2017-08-14] MEDS: FUROSEMIDE 20 MG TABLET GT SCH (09:27)
[2017-08-14] MEDS: PROSTAT (PYXIS) 30 ML UDC GT SCH ×2 (09:27→16:14)
[2017-08-14] MEDS: FERROUS SULFATE - FOR SA ONLY 330 MG/7.5 ML UDC GT SCH ×2 (09:27→16:14)
[2017-08-14] MEDS: HYDROGEN PEROXIDE 480 ML BOTTLE TP SCH ×2 (09:27→21:04)
[2017-08-14] MEDS: LACTULOSE 20 G/30 ML UDC GT SCH (09:27)
[2017-08-14] MEDS: KCL 20 MEQ/15 ML GT SCH (09:27)
[2017-08-14] MEDS: CELLUVISC EACHEYE SCH ×4 (09:27→21:03)
[2017-08-14] MEDS: Z GUARD REMEDY 4 OZ OINT TP SCH ×4 (09:28→21:04)
[2017-08-14 19:20] VITALS: BP 105/57
[2017-08-14] MEDS: SENNOSIDES 8.6 MG TABLET GT SCH (21:04)
[2017-08-14] MEDS: MULTIVIT, IRON, MIN NO. 8, FA 1 TAB GT SCH (21:04)
[2017-08-14] MEDS: RENAL NOVASOURCE 1,000 ML BOTTLE GT PRN (21:04)
[2017-08-14] MEDS: LANOLIN/MIN OIL/PETROLAT,WHT 3.5 GM TUBE EACHEYE SCH (21:04)
[2017-08-15] MEDS: PREVACID (NF) 30 MG TAB GT SCH (05:07)
[2017-08-15] MEDS: BACLOFEN (10 MG) 10 MG TABLET GT SCH ×2 (05:07→18:04)
[2017-08-15] MEDS: IPRATROPIUM NEB FS 0.5 MG/2.5 ML AMPUL.NEB IH SCH ×2 (07:26→19:10)
[2017-08-15 07:31] VITALS: BP 82/52
[2017-08-15] MEDS: CELLUVISC EACHEYE SCH ×4 (09:05→20:33)
[2017-08-15] MEDS: FERROUS SULFATE - FOR SA ONLY 330 MG/7.5 ML UDC GT SCH ×2 (09:05→16:16)
[2017-08-15] MEDS: LACTULOSE 20 G/30 ML UDC GT SCH (09:05)
[2017-08-15] MEDS: KCL 20 MEQ/15 ML GT SCH (09:05)
[2017-08-15] MEDS: FUROSEMIDE SOLN 40 MG/5 ML UDC GT SCH (09:06)
[2017-08-15] MEDS: PROSTAT (PYXIS) 30 ML UDC GT SCH ×2 (09:06→16:16)
[2017-08-15] MEDS: HYDROGEN PEROXIDE 480 ML BOTTLE TP SCH ×2 (09:06→20:34)
[2017-08-15] MEDS: MIDODRINE HCL (5MG) 5 MG TABLET GT SCH ×2 (09:06→20:33)
[2017-08-15] MEDS: Z GUARD REMEDY 4 OZ OINT TP SCH ×4 (09:06→20:34)
[2017-08-15 19:43] VITALS: BP 96/69
[2017-08-15] MEDS: MULTIVIT, IRON, MIN NO. 8, FA 1 TAB GT SCH (20:33)
[2017-08-15] MEDS: SENNOSIDES 8.6 MG TABLET GT SCH (20:34)
[2017-08-15] MEDS: LANOLIN/MIN OIL/PETROLAT,WHT 3.5 GM TUBE EACHEYE SCH (20:34)
[2017-08-16] MEDS: PREVACID (NF) 30 MG TAB GT SCH (05:12)
[2017-08-16] MEDS: RENAL NOVASOURCE 1,000 ML BOTTLE GT PRN (05:12)
[2017-08-16] MEDS: BACLOFEN (10 MG) 10 MG TABLET GT SCH ×2 (05:12→16:46)
[2017-08-16 08:00] VITALS: BP 124/68
[2017-08-16] MEDS: IPRATROPIUM NEB FS 0.5 MG/2.5 ML AMPUL.NEB IH SCH ×2 (08:14→19:45)
[2017-08-16] MEDS: Z GUARD REMEDY 4 OZ OINT TP SCH ×4 (09:00→20:29)
[2017-08-16] MEDS: HYDROGEN PEROXIDE 480 ML BOTTLE TP SCH ×2 (09:00→20:29)
[2017-08-16] MEDS: CELLUVISC EACHEYE SCH ×4 (09:28→20:28)
[2017-08-16] MEDS: FERROUS SULFATE - FOR SA ONLY 330 MG/7.5 ML UDC GT SCH ×3 (09:28→16:50)
[2017-08-16] MEDS: LACTULOSE 20 G/30 ML UDC GT SCH (09:28)
[2017-08-16] MEDS: FUROSEMIDE SOLN 40 MG/5 ML UDC GT SCH (09:29)
[2017-08-16] MEDS: MIDODRINE HCL (5MG) 5 MG TABLET GT SCH ×2 (09:29→20:29)
[2017-08-16] MEDS: PROSTAT (PYXIS) 30 ML UDC GT SCH ×2 (09:29→16:50)
[2017-08-16] MEDS: KCL 20 MEQ/15 ML GT SCH (09:29)
--- NOTE | 2017-08-16 10:15 | NUR ---
RN NOTES RECEIVED PATIENT IN THE BED. PATIENT AWAKE AYES OPEN, TRACHEA/VENT DEPENDENT, NONVERBAL, ON G-TUBE FEEDING 30ML/HR, INTACT, V/S TAKEN STABLE. PATIENT ON DVT PUMP, ASSIST TURN AND REPOSTION BY HELP OF MEDICAL INSURANCE CLERK. NEEDS ATTENDED AND ANTICIPATED, CALL LIGHT WITHIN TO REACH, BED ALARM ON. CONTINUED MONITORING.
[2017-08-16] MEDS: MULTIVIT, IRON, MIN NO. 8, FA 1 TAB GT SCH (20:29)
[2017-08-16 20:33] VITALS: BP 103/70
[2017-08-16] MEDS: LANOLIN/MIN OIL/PETROLAT,WHT 3.5 GM TUBE EACHEYE SCH (22:03)
[2017-08-16] MEDS: SENNOSIDES 8.6 MG TABLET GT SCH (22:03)
[2017-08-17] MEDS: LORAZEPAM 0.5 MG TABLET GT PRN (01:05)
--- NOTE | 2017-08-17 01:08 | NUR ---
Resident anxious m/b increased respiration and HR ranging from 115-130. Ativan 0.5 mg/prn via gt given as ordered. Repositioned. Kept clean, dry and comfortable. HOB elevated at all times. Will continue to monitor.
--- NOTE | 2017-08-17 01:52 | NUR ---
Ativan effective. Resident calm with resp 17 and HR ranging from 90-106. Pt calm and comfortable without s/s of respiratory distress. Respiration even and unlabored. Will continue to monitor. Frequent visual check done for safety.
[2017-08-17] MEDS: BACLOFEN (10 MG) 10 MG TABLET GT SCH ×2 (05:01→17:55)
[2017-08-17] MEDS: PREVACID (NF) 30 MG TAB GT SCH (05:01)
[2017-08-17 07:31] VITALS: BP 99/48
[2017-08-17] MEDS: IPRATROPIUM NEB FS 0.5 MG/2.5 ML AMPUL.NEB IH SCH ×2 (08:17→19:03)
[2017-08-17] MEDS: FERROUS SULFATE - FOR SA ONLY 330 MG/7.5 ML UDC GT SCH ×2 (09:44→16:17)
[2017-08-17] MEDS: FUROSEMIDE SOLN 40 MG/5 ML UDC GT SCH (09:44)
[2017-08-17] MEDS: KCL 20 MEQ/15 ML GT SCH (09:44)
[2017-08-17] MEDS: LACTULOSE 20 G/30 ML UDC GT SCH (09:44)
[2017-08-17] MEDS: CELLUVISC EACHEYE SCH ×4 (09:44→21:24)
[2017-08-17] MEDS: MIDODRINE HCL (5MG) 5 MG TABLET GT SCH ×2 (09:45→21:24)
[2017-08-17] MEDS: Z GUARD REMEDY 4 OZ OINT TP SCH ×4 (09:45→21:25)
[2017-08-17] MEDS: HYDROGEN PEROXIDE 480 ML BOTTLE TP SCH ×2 (09:45→21:24)
[2017-08-17] MEDS: PROSTAT (PYXIS) 30 ML UDC GT SCH ×2 (09:45→16:17)
[2017-08-17 19:50] VITALS: BP 102/56
[2017-08-17] MEDS: MULTIVIT, IRON, MIN NO. 8, FA 1 TAB GT SCH (21:24)
[2017-08-17] MEDS: LANOLIN/MIN OIL/PETROLAT,WHT 3.5 GM TUBE EACHEYE SCH (21:25)
[2017-08-17] MEDS: SENNOSIDES 8.6 MG TABLET GT SCH (21:25)
[2017-08-17 22:12] VITALS: BP 102/56
[2017-08-18] MEDS: BACLOFEN (10 MG) 10 MG TABLET GT SCH ×2 (06:07→17:08)
[2017-08-18] MEDS: PREVACID (NF) 30 MG TAB GT SCH (06:07)
[2017-08-18 07:35] VITALS: BP 93/49
[2017-08-18] MEDS: IPRATROPIUM NEB FS 0.5 MG/2.5 ML AMPUL.NEB IH SCH ×2 (08:24→20:14)
[2017-08-18] MEDS: CELLUVISC EACHEYE SCH ×4 (09:36→21:31)
[2017-08-18] MEDS: FERROUS SULFATE - FOR SA ONLY 330 MG/7.5 ML UDC GT SCH ×2 (09:36→17:08)
[2017-08-18] MEDS: LACTULOSE 20 G/30 ML UDC GT SCH (09:36)
[2017-08-18] MEDS: FUROSEMIDE SOLN 40 MG/5 ML UDC GT SCH (09:38)
[2017-08-18] MEDS: PROSTAT (PYXIS) 30 ML UDC GT SCH ×2 (09:38→17:08)
[2017-08-18] MEDS: MIDODRINE HCL (5MG) 5 MG TABLET GT SCH ×2 (09:38→21:32)
[2017-08-18] MEDS: KCL 20 MEQ/15 ML GT SCH (09:38)
[2017-08-18] MEDS: Z GUARD REMEDY 4 OZ OINT TP SCH ×4 (09:39→21:32)
[2017-08-18] MEDS: HYDROGEN PEROXIDE 480 ML BOTTLE TP SCH ×2 (09:39→21:32)
--- NOTE | 2017-08-18 16:45 | NUR ---
PT RYANN ON MECHANICAL VENTILATION. PT YARA T/O SHIFT. TREATMENT GIVEN AND NO ADVERSE REACTION NOTED. PT ANDER SECURE AND PATENT. AMBU BAG AT [facility]. VENTILATOR PLUGGED INTO RED OUTLET. ALARMS SET AND AUDIBLE. Addendum: 08/18/17 at 1646 by RADHA FERMIN RT Amended: Links added.
[2017-08-18 20:34] VITALS: BP 107/63
[2017-08-18] MEDS: MULTIVIT, IRON, MIN NO. 8, FA 1 TAB GT SCH (21:32)
[2017-08-18] MEDS: LANOLIN/MIN OIL/PETROLAT,WHT 3.5 GM TUBE EACHEYE SCH (21:32)
[2017-08-18] MEDS: SENNOSIDES 8.6 MG TABLET GT SCH (21:32)
[2017-08-19] MEDS: PREVACID (NF) 30 MG TAB GT SCH (05:30)
[2017-08-19] MEDS: BACLOFEN (10 MG) 10 MG TABLET GT SCH ×2 (05:30→17:11)
[2017-08-19] MEDS: RENAL NOVASOURCE 1,000 ML BOTTLE GT PRN (05:30)
[2017-08-19] MEDS: IPRATROPIUM NEB FS 0.5 MG/2.5 ML AMPUL.NEB IH SCH ×2 (07:44→19:50)
[2017-08-19 08:03] VITALS: BP 108/58
[2017-08-19] MEDS: CELLUVISC EACHEYE SCH ×4 (08:45→21:44)
[2017-08-19] MEDS: LACTULOSE 20 G/30 ML UDC GT SCH (08:47)
[2017-08-19] MEDS: FERROUS SULFATE - FOR SA ONLY 330 MG/7.5 ML UDC GT SCH ×2 (08:47→16:49)
[2017-08-19] MEDS: KCL 20 MEQ/15 ML GT SCH (08:48)
[2017-08-19] MEDS: FUROSEMIDE SOLN 40 MG/5 ML UDC GT SCH (08:49)
[2017-08-19] MEDS: Z GUARD REMEDY 4 OZ OINT TP SCH ×4 (08:50→21:45)
[2017-08-19] MEDS: MIDODRINE HCL (5MG) 5 MG TABLET GT SCH ×2 (08:50→21:45)
[2017-08-19] MEDS: PROSTAT (PYXIS) 30 ML UDC GT SCH ×2 (08:50→16:49)
[2017-08-19] MEDS: HYDROGEN PEROXIDE 480 ML BOTTLE TP SCH ×2 (10:30→21:45)
[2017-08-19 20:23] VITALS: BP 121/58
[2017-08-19] MEDS: SENNOSIDES 8.6 MG TABLET GT SCH (21:45)
[2017-08-19] MEDS: MULTIVIT, IRON, MIN NO. 8, FA 1 TAB GT SCH (21:45)
[2017-08-19] MEDS: LANOLIN/MIN OIL/PETROLAT,WHT 3.5 GM TUBE EACHEYE SCH (21:45)
[2017-08-20] MEDS: RENAL NOVASOURCE 1,000 ML BOTTLE GT PRN (04:10)
[2017-08-20] MEDS: BACLOFEN (10 MG) 10 MG TABLET GT SCH ×2 (06:08→17:01)
[2017-08-20] MEDS: PREVACID (NF) 30 MG TAB GT SCH (06:08)
[2017-08-20] MEDS: IPRATROPIUM NEB FS 0.5 MG/2.5 ML AMPUL.NEB IH SCH ×2 (07:41→19:23)
[2017-08-20 07:48] VITALS: BP 111/63
[2017-08-20] MEDS: LACTULOSE 20 G/30 ML UDC GT SCH (09:26)
[2017-08-20] MEDS: FERROUS SULFATE - FOR SA ONLY 330 MG/7.5 ML UDC GT SCH ×2 (09:26→16:42)
[2017-08-20] MEDS: PROSTAT (PYXIS) 30 ML UDC GT SCH ×2 (09:26→16:42)
[2017-08-20] MEDS: Z GUARD REMEDY 4 OZ OINT TP SCH ×4 (09:26→21:06)
[2017-08-20] MEDS: KCL 20 MEQ/15 ML GT SCH (09:26)
[2017-08-20] MEDS: MIDODRINE HCL (5MG) 5 MG TABLET GT SCH ×2 (09:26→21:06)
[2017-08-20] MEDS: CELLUVISC EACHEYE SCH ×4 (09:26→21:06)
[2017-08-20] MEDS: FUROSEMIDE SOLN 40 MG/5 ML UDC GT SCH (09:26)
[2017-08-20] MEDS: HYDROGEN PEROXIDE 480 ML BOTTLE TP SCH ×2 (09:26→21:06)
[2017-08-20 20:16] VITALS: BP 111/65
[2017-08-20] MEDS: SENNOSIDES 8.6 MG TABLET GT SCH (21:06)
[2017-08-20] MEDS: LANOLIN/MIN OIL/PETROLAT,WHT 3.5 GM TUBE EACHEYE SCH (21:06)
[2017-08-20] MEDS: MULTIVIT, IRON, MIN NO. 8, FA 1 TAB GT SCH (21:06)
[2017-08-21] MEDS: BACLOFEN (10 MG) 10 MG TABLET GT SCH ×2 (05:21→17:29)
[2017-08-21] MEDS: PREVACID (NF) 30 MG TAB GT SCH (05:21)
[2017-08-21] MEDS: IPRATROPIUM NEB FS 0.5 MG/2.5 ML AMPUL.NEB IH SCH ×2 (07:25→20:20)
[2017-08-21 07:38] VITALS: BP 100/54
[2017-08-21] MEDS: PROSTAT (PYXIS) 30 ML UDC GT SCH ×2 (08:23→17:29)
[2017-08-21] MEDS: FUROSEMIDE SOLN 40 MG/5 ML UDC GT SCH (08:23)
[2017-08-21] MEDS: LACTULOSE 20 G/30 ML UDC GT SCH (08:23)
[2017-08-21] MEDS: KCL 20 MEQ/15 ML GT SCH (08:23)
[2017-08-21] MEDS: CELLUVISC EACHEYE SCH ×4 (08:23→21:00)
[2017-08-21] MEDS: MIDODRINE HCL (5MG) 5 MG TABLET GT SCH ×2 (08:23→21:00)
[2017-08-21] MEDS: FERROUS SULFATE - FOR SA ONLY 330 MG/7.5 ML UDC GT SCH ×2 (08:23→17:29)
[2017-08-21] MEDS: Z GUARD REMEDY 4 OZ OINT TP SCH ×4 (09:00→21:00)
[2017-08-21] MEDS: HYDROGEN PEROXIDE 480 ML BOTTLE TP SCH ×2 (09:00→21:00)
[2017-08-21] MEDS: RENAL NOVASOURCE 1,000 ML BOTTLE GT PRN (18:57)
[2017-08-21 19:32] VITALS: BP 106/78
[2017-08-21] MEDS: MULTIVIT, IRON, MIN NO. 8, FA 1 TAB GT SCH (21:00)
[2017-08-21] MEDS: LANOLIN/MIN OIL/PETROLAT,WHT 3.5 GM TUBE EACHEYE SCH (22:10)
[2017-08-21] MEDS: SENNOSIDES 8.6 MG TABLET GT SCH (22:10)
[2017-08-22] MEDS: BACLOFEN (10 MG) 10 MG TABLET GT SCH ×2 (06:09→17:05)
[2017-08-22] MEDS: PREVACID (NF) 30 MG TAB GT SCH (06:09)
[2017-08-22 07:43] VITALS: BP 141/75
[2017-08-22] MEDS: IPRATROPIUM NEB FS 0.5 MG/2.5 ML AMPUL.NEB IH SCH ×2 (07:46→19:48)
[2017-08-22] MEDS: FERROUS SULFATE - FOR SA ONLY 330 MG/7.5 ML UDC GT SCH ×2 (08:53→17:05)
[2017-08-22] MEDS: CELLUVISC EACHEYE SCH ×4 (08:53→21:00)
[2017-08-22] MEDS: LACTULOSE 20 G/30 ML UDC GT SCH (08:53)
[2017-08-22] MEDS: FUROSEMIDE SOLN 40 MG/5 ML UDC GT SCH (08:54)
[2017-08-22] MEDS: PROSTAT (PYXIS) 30 ML UDC GT SCH ×2 (08:54→17:05)
[2017-08-22] MEDS: KCL 20 MEQ/15 ML GT SCH (08:54)
[2017-08-22] MEDS: MIDODRINE HCL (5MG) 5 MG TABLET GT SCH ×2 (08:54→21:00)
[2017-08-22] MEDS: Z GUARD REMEDY 4 OZ OINT TP SCH ×4 (09:42→21:00)
[2017-08-22] MEDS: HYDROGEN PEROXIDE 480 ML BOTTLE TP SCH ×2 (09:42→21:00)
[2017-08-22 20:10] VITALS: BP 114/79
[2017-08-22] MEDS: MULTIVIT, IRON, MIN NO. 8, FA 1 TAB GT SCH (21:00)
[2017-08-22] MEDS: LANOLIN/MIN OIL/PETROLAT,WHT 3.5 GM TUBE EACHEYE SCH (22:52)
[2017-08-22] MEDS: SENNOSIDES 8.6 MG TABLET GT SCH (22:52)
[2017-08-23] MEDS: BACLOFEN (10 MG) 10 MG TABLET GT SCH ×2 (06:24→17:41)
[2017-08-23] MEDS: PREVACID (NF) 30 MG TAB GT SCH (06:24)
[2017-08-23] MEDS: IPRATROPIUM NEB FS 0.5 MG/2.5 ML AMPUL.NEB IH SCH ×2 (07:20→19:30)
--- NOTE | 2017-08-23 07:20 | NUR ---
RT PATIENT REC'D TRACHED ON [facility] VENT WITH SETTINGS SET BY MD EUGENIO HUBER. VENT ALARMS CHECKED + AUDIBLE. TRACH SECURE + IN PROPER POSITION. CUFF CHECKED COTTON WRINGER. AIRWAY SUCTIONED WITH MOD AMT OF PALE SEMI-THICK SECRETIONS. B/S DIM. PATIENT APPEARS COMFORTABLE AND IN NO DISTRESS. AMBU BAG AT HOB. Addendum: 08/23/17 at 1015 by ANNAMARIA RICHTER RT Amended: Links added.
[2017-08-23 07:44] VITALS: BP 101/67
[2017-08-23] MEDS: FERROUS SULFATE - FOR SA ONLY 330 MG/7.5 ML UDC GT SCH ×2 (09:53→16:48)
[2017-08-23] MEDS: LACTULOSE 20 G/30 ML UDC GT SCH (09:53)
[2017-08-23] MEDS: MIDODRINE HCL (5MG) 5 MG TABLET GT SCH ×2 (09:53→21:00)
[2017-08-23] MEDS: FUROSEMIDE SOLN 40 MG/5 ML UDC GT SCH (09:53)
[2017-08-23] MEDS: KCL 20 MEQ/15 ML GT SCH (09:53)
[2017-08-23] MEDS: CELLUVISC EACHEYE SCH ×4 (09:53→21:41)
[2017-08-23] MEDS: PROSTAT (PYXIS) 30 ML UDC GT SCH ×2 (09:54→16:48)
[2017-08-23] MEDS: HYDROGEN PEROXIDE 480 ML BOTTLE TP SCH ×2 (09:54→21:42)
[2017-08-23] MEDS: Z GUARD REMEDY 4 OZ OINT TP SCH ×4 (09:54→21:42)
--- NOTE | 2017-08-23 12:32 | NUR ---
LIZANDRO informed sister Judith that hairdresser is coming on Friday September 01, 2017. Sister Judith stated she would like a haircut for the resident. LIZANDRO will put the resident on the list to receive haircuts that day. Also informed her that SW will be unavailable the week of August 30 (08/30-09/03).
[2017-08-23] MEDS: RENAL NOVASOURCE 1,000 ML BOTTLE GT PRN (15:43)
[2017-08-23 20:25] VITALS: BP 132/73
[2017-08-23] MEDS: SENNOSIDES 8.6 MG TABLET GT SCH (21:42)
[2017-08-23] MEDS: LANOLIN/MIN OIL/PETROLAT,WHT 3.5 GM TUBE EACHEYE SCH (21:42)
[2017-08-23] MEDS: MULTIVIT, IRON, MIN NO. 8, FA 1 TAB GT SCH (21:42)
[2017-08-23 22:08] VITALS: BP 132/73
[2017-08-24] MEDS: PREVACID (NF) 30 MG TAB GT SCH (05:54)
[2017-08-24] MEDS: BACLOFEN (10 MG) 10 MG TABLET GT SCH ×2 (05:55→17:51)
[2017-08-24 08:03] VITALS: BP 109/66
[2017-08-24] MEDS: IPRATROPIUM NEB FS 0.5 MG/2.5 ML AMPUL.NEB IH SCH ×2 (08:23→19:30)
[2017-08-24] MEDS: CELLUVISC EACHEYE SCH ×4 (09:00→21:44)
[2017-08-24] MEDS: LACTULOSE 20 G/30 ML UDC GT SCH (09:39)
[2017-08-24] MEDS: FERROUS SULFATE - FOR SA ONLY 330 MG/7.5 ML UDC GT SCH ×2 (09:40→17:51)
[2017-08-24] MEDS: KCL 20 MEQ/15 ML GT SCH (09:41)
[2017-08-24] MEDS: FUROSEMIDE SOLN 40 MG/5 ML UDC GT SCH (09:41)
[2017-08-24] MEDS: MIDODRINE HCL (5MG) 5 MG TABLET GT SCH ×2 (09:42→21:44)
[2017-08-24] MEDS: PROSTAT (PYXIS) 30 ML UDC GT SCH ×2 (09:42→17:51)
[2017-08-24] MEDS: Z GUARD REMEDY 4 OZ OINT TP SCH ×4 (09:43→21:45)
[2017-08-24] MEDS: HYDROGEN PEROXIDE 480 ML BOTTLE TP SCH ×2 (10:00→21:44)
--- NOTE | 2017-08-24 11:00 | NUR ---
Seen by Dr. Macario. Received order to place pt tomorrow on CPAP 5 PSV 12 FiO2 30% titrate SPO2 greater than or equal to 94%, ABG 1 hour post vent change.
--- NOTE | 2017-08-24 16:41 | NUR ---
RT NOTE: PATIENT RECEIVED TRACHED ON MECHANICAL VENT. SETTINGS PER MD AND CHARTED. ALARMS VERIFIED AND AUDIBLE. SUCTIONED AND LAVAGED TO OBTAIN MODERATE-LARGE AMOUNTS OF THICK SECRETIONS. AMBU BAG AND [facility]
[2017-08-24 20:32] VITALS: BP 109/52
--- NOTE | 2017-08-24 20:39 | NUR ---
PT RECEIVED ON VENT VIA CHARTED ROUTE AND SETTINGS. VENT PLUGGED INTO RED OUTLET. ALARMS SET AND AUDIBLE. DISCONNECT ALARMS CHECKED. AMBU BAG AT BEDSIDE. PT TOLERATING VENT SETTINGS AT THIS TIME Addendum: 08/24/17 at 2039 by MELISA GARCIA RT Amended: Links added.
[2017-08-24] MEDS: MULTIVIT, IRON, MIN NO. 8, FA 1 TAB GT SCH (21:44)
[2017-08-24] MEDS: LANOLIN/MIN OIL/PETROLAT,WHT 3.5 GM TUBE EACHEYE SCH (21:45)
[2017-08-24] MEDS: SENNOSIDES 8.6 MG TABLET GT SCH (21:45)
[2017-08-24 22:14] VITALS: BP 109/52
[2017-08-25] MEDS: PREVACID (NF) 30 MG TAB GT SCH (05:53)
[2017-08-25] MEDS: BACLOFEN (10 MG) 10 MG TABLET GT SCH ×2 (05:53→17:25)
[2017-08-25] MEDS: IPRATROPIUM NEB FS 0.5 MG/2.5 ML AMPUL.NEB IH SCH ×2 (07:25→19:30)
[2017-08-25 08:02] VITALS: BP 106/72
[2017-08-25] MEDS: LACTULOSE 20 G/30 ML UDC GT SCH (08:58)
[2017-08-25] MEDS: FERROUS SULFATE - FOR SA ONLY 330 MG/7.5 ML UDC GT SCH ×2 (08:58→16:31)
[2017-08-25] MEDS: FUROSEMIDE SOLN 40 MG/5 ML UDC GT SCH (08:59)
[2017-08-25] MEDS: KCL 20 MEQ/15 ML GT SCH (08:59)
[2017-08-25] MEDS: CELLUVISC EACHEYE SCH ×4 (09:00→20:49)
[2017-08-25] MEDS: HYDROGEN PEROXIDE 480 ML BOTTLE TP SCH ×2 (09:01→20:49)
[2017-08-25] MEDS: MIDODRINE HCL (5MG) 5 MG TABLET GT SCH ×2 (09:01→20:49)
[2017-08-25] MEDS: PROSTAT (PYXIS) 30 ML UDC GT SCH ×2 (09:01→16:31)
[2017-08-25] MEDS: Z GUARD REMEDY 4 OZ OINT TP SCH ×4 (09:02→20:49)
[2017-08-25 09:32] LABS: ABG BASE EXCESS 3.9 mmol/L; ABG OXYGEN SATURATION 97.1 % (92.0-98.5); ABG PCO2 51.8 mmHg (35.0-45.0); ABG PH 7.378 (7.350-7.450); ABG PO2 106.7 mmHg (75.0-100.0); AaDO2 82.6 mmHg; COHb 0.3 % (0.5-1.5); MetHb 0.7 % (0.0-1.5); O2Hb 96.1 % (94.0-97.0); PEEP,BG 5 cm H2O; SITE, ABG Right Radial; VENT MODE, BG CPAP PS 12 +5 35%
--- NOTE | 2017-08-25 12:26 | NUR ---
Resident's vent setting changed this morning to CPAP, PS 12, Peep 5 at 35% Fi02, ABG done after one hour. Dr. Macario notified of ABG result, NNO given. Resident's 02 sat 98-99%, no SOB. Spoke with resident's mother Sabrina updated her of vent weaning outcome. Appreciated the call.
[2017-08-25 20:21] VITALS: BP 110/72
[2017-08-25] MEDS: MULTIVIT, IRON, MIN NO. 8, FA 1 TAB GT SCH (20:49)
[2017-08-25] MEDS: LACTULOSE 10 G/15 ML UDC (PYXIS) GT PRN (20:50)
[2017-08-25] MEDS: LANOLIN/MIN OIL/PETROLAT,WHT 3.5 GM TUBE EACHEYE SCH (21:17)
[2017-08-25] MEDS: SENNOSIDES 8.6 MG TABLET GT SCH (21:17)
[2017-08-26] MEDS: RENAL NOVASOURCE 1,000 ML BOTTLE GT PRN
[2017-08-26] MEDS: BACLOFEN (10 MG) 10 MG TABLET GT SCH ×2 (05:15→18:31)
[2017-08-26] MEDS: PREVACID (NF) 30 MG TAB GT SCH (05:15)
[2017-08-26 07:29] VITALS: BP 98/74
[2017-08-26] MEDS: IPRATROPIUM NEB FS 0.5 MG/2.5 ML AMPUL.NEB IH SCH ×2 (07:36→20:03)
[2017-08-26] MEDS: FUROSEMIDE SOLN 40 MG/5 ML UDC GT SCH (09:00)
[2017-08-26] MEDS: CELLUVISC EACHEYE SCH ×5 (09:00→20:26)
[2017-08-26] MEDS: KCL 20 MEQ/15 ML GT SCH (09:06)
[2017-08-26] MEDS: LACTULOSE 20 G/30 ML UDC GT SCH (09:06)
[2017-08-26] MEDS: FERROUS SULFATE - FOR SA ONLY 330 MG/7.5 ML UDC GT SCH ×2 (09:06→17:00)
[2017-08-26] MEDS: MIDODRINE HCL (5MG) 5 MG TABLET GT SCH ×2 (09:07→20:26)
[2017-08-26] MEDS: PROSTAT (PYXIS) 30 ML UDC GT SCH ×2 (09:07→17:00)
[2017-08-26] MEDS: HYDROGEN PEROXIDE 480 ML BOTTLE TP SCH ×2 (09:07→20:26)
[2017-08-26] MEDS: Z GUARD REMEDY 4 OZ OINT TP SCH ×2 (09:07→20:27)
[2017-08-26 19:26] VITALS: BP 107/59
[2017-08-26] MEDS: MULTIVIT, IRON, MIN NO. 8, FA 1 TAB GT SCH (20:26)
[2017-08-26] MEDS: SENNOSIDES 8.6 MG TABLET GT SCH (21:41)
[2017-08-26] MEDS: LANOLIN/MIN OIL/PETROLAT,WHT 3.5 GM TUBE EACHEYE SCH (21:41)
[2017-08-27] MEDS: PREVACID (NF) 30 MG TAB GT SCH (05:23)
[2017-08-27] MEDS: LACTULOSE 10 G/15 ML UDC (PYXIS) GT PRN ×2 (05:23→20:29)
[2017-08-27] MEDS: BACLOFEN (10 MG) 10 MG TABLET GT SCH ×2 (05:23→18:14)
[2017-08-27] MEDS: RENAL NOVASOURCE 1,000 ML BOTTLE GT PRN (05:24)
[2017-08-27 07:37] VITALS: BP 118/77
[2017-08-27] MEDS: IPRATROPIUM NEB FS 0.5 MG/2.5 ML AMPUL.NEB IH SCH ×2 (08:03→20:10)
[2017-08-27] MEDS: FUROSEMIDE SOLN 40 MG/5 ML UDC GT SCH (08:53)
[2017-08-27] MEDS: LACTULOSE 20 G/30 ML UDC GT SCH (08:53)
[2017-08-27] MEDS: KCL 20 MEQ/15 ML GT SCH (08:53)
[2017-08-27] MEDS: CELLUVISC EACHEYE SCH ×4 (08:53→20:29)
[2017-08-27] MEDS: FERROUS SULFATE - FOR SA ONLY 330 MG/7.5 ML UDC GT SCH ×2 (08:53→17:00)
[2017-08-27] MEDS: PROSTAT (PYXIS) 30 ML UDC GT SCH ×2 (08:54→17:00)
[2017-08-27] MEDS: MIDODRINE HCL (5MG) 5 MG TABLET GT SCH ×2 (08:54→20:29)
[2017-08-27] MEDS: HYDROGEN PEROXIDE 480 ML BOTTLE TP SCH ×2 (08:54→20:29)
[2017-08-27] MEDS: Z GUARD REMEDY 4 OZ OINT TP SCH ×2 (08:54→20:29)
--- NOTE | 2017-08-27 18:30 | NUR ---
RT NOTE PT IN STABLE CONDITION. PT REMAINS MECHANICALLY VENTILATED VIA TRACHEOSTOMY TUBE. SETTINGS PRESCRIBED. ALARMS SET PER PROTOCOL AND AUDIBLE. VENT PLUGGED IN TO RED OUTLET. AMBU BAG AT BED SIDE. NO DISTRESS NOTED.
[2017-08-27 19:21] VITALS: BP 98/69
[2017-08-27] MEDS: MULTIVIT, IRON, MIN NO. 8, FA 1 TAB GT SCH (20:29)
[2017-08-27] MEDS: SENNOSIDES 8.6 MG TABLET GT SCH (21:22)
[2017-08-27] MEDS: LANOLIN/MIN OIL/PETROLAT,WHT 3.5 GM TUBE EACHEYE SCH (21:22)
[2017-08-27] MEDS: LORAZEPAM 0.5 MG TABLET GT PRN (23:23)
[2017-08-28] MEDS: ACETAMINOPHEN 650 MG/20 ML UDC- FOR SA PATIENTS ONLY GT PRN (00:23)
--- NOTE | 2017-08-28 03:41 | NUR ---
RT PT RECEIVED ON [facility] VENT WITH NOTED SETTING. ALARMS SET AND AUDIBLE. VENT TO RED OUTLET. PRECINCT POLICE CAPTAIN DONE. AMBU BAG AT [facility]. NO SOB OR RESP DISTRESS NOTED ON SHIFT. PT BECAME TACHYCARDIC DURING NIGHT. RN AWARE. Addendum: 08/28/17 at 0347 by SUJEY EDWARD RT Amended: Links added.
[2017-08-28] MEDS: PREVACID (NF) 30 MG TAB GT SCH (05:26)
[2017-08-28] MEDS: BACLOFEN (10 MG) 10 MG TABLET GT SCH ×2 (05:26→17:52)
[2017-08-28] MEDS: IPRATROPIUM NEB FS 0.5 MG/2.5 ML AMPUL.NEB IH SCH ×2 (07:30→19:59)
--- NOTE | 2017-08-28 07:34 | NUR ---
Destiny pt received on mechanical vent. Pt trach is secure. Vent is plugged into a red outlet, alarms are set and audible, and BVM is at bedside. Addendum: 08/28/17 at 0735 by NADINE RIOS RT Amended: Links added.
[2017-08-28 07:41] VITALS: BP 102/65
[2017-08-28] MEDS: FERROUS SULFATE - FOR SA ONLY 330 MG/7.5 ML UDC GT SCH ×2 (08:55→17:52)
[2017-08-28] MEDS: KCL 20 MEQ/15 ML GT SCH (08:55)
[2017-08-28] MEDS: FUROSEMIDE SOLN 40 MG/5 ML UDC GT SCH (08:55)
[2017-08-28] MEDS: CELLUVISC EACHEYE SCH ×4 (08:55→21:00)
[2017-08-28] MEDS: LACTULOSE 20 G/30 ML UDC GT SCH (08:55)
[2017-08-28] MEDS: PROSTAT (PYXIS) 30 ML UDC GT SCH ×2 (08:56→17:52)
[2017-08-28] MEDS: MIDODRINE HCL (5MG) 5 MG TABLET GT SCH ×2 (08:56→21:00)
[2017-08-28] MEDS: Z GUARD REMEDY 4 OZ OINT TP SCH ×2 (08:56→21:00)
[2017-08-28] MEDS: HYDROGEN PEROXIDE 480 ML BOTTLE TP SCH ×2 (08:56→21:00)
[2017-08-28 19:50] VITALS: BP 108/64
[2017-08-28] MEDS: MULTIVIT, IRON, MIN NO. 8, FA 1 TAB GT SCH (21:00)
[2017-08-28] MEDS: SENNOSIDES 8.6 MG TABLET GT SCH (22:01)
[2017-08-28] MEDS: LANOLIN/MIN OIL/PETROLAT,WHT 3.5 GM TUBE EACHEYE SCH (22:01)
[2017-08-29] MEDS: BACLOFEN (10 MG) 10 MG TABLET GT SCH ×2 (05:20→18:00)
[2017-08-29] MEDS: RENAL NOVASOURCE 1,000 ML BOTTLE GT PRN (05:20)
[2017-08-29] MEDS: PREVACID (NF) 30 MG TAB GT SCH (05:20)
--- NOTE | 2017-08-29 06:10 | NUR ---
pt rec'd trached on [facility] vent settings as charted. pt is stable and trach is intact and midline. no changes made throughout shift. vent plugged into red outlet. ambu bag bedside. alarms are set and audible. will continue to monitor Addendum: 08/29/17 at 0611 by CHIRAG MENDEZ RT Amended: Links added.
[2017-08-29] MEDS: IPRATROPIUM NEB FS 0.5 MG/2.5 ML AMPUL.NEB IH SCH ×2 (07:22→20:21)
[2017-08-29 07:31] VITALS: BP 112/51
[2017-08-29] MEDS: PROSTAT (PYXIS) 30 ML UDC GT SCH ×2 (08:57→16:24)
[2017-08-29] MEDS: CELLUVISC EACHEYE SCH ×4 (08:57→21:09)
[2017-08-29] MEDS: LACTULOSE 20 G/30 ML UDC GT SCH (08:57)
[2017-08-29] MEDS: MIDODRINE HCL (5MG) 5 MG TABLET GT SCH ×2 (08:57→21:09)
[2017-08-29] MEDS: FUROSEMIDE SOLN 40 MG/5 ML UDC GT SCH (08:57)
[2017-08-29] MEDS: FERROUS SULFATE - FOR SA ONLY 330 MG/7.5 ML UDC GT SCH ×2 (08:57→16:24)
[2017-08-29] MEDS: KCL 20 MEQ/15 ML GT SCH (08:57)
[2017-08-29] MEDS: HYDROGEN PEROXIDE 480 ML BOTTLE TP SCH ×2 (09:12→21:09)
[2017-08-29] MEDS: Z GUARD REMEDY 4 OZ OINT TP SCH ×2 (09:13→21:10)
[2017-08-29 21:03] VITALS: BP 98/53
[2017-08-29] MEDS: MULTIVIT, IRON, MIN NO. 8, FA 1 TAB GT SCH (21:09)
[2017-08-29] MEDS: SENNOSIDES 8.6 MG TABLET GT SCH (21:10)
[2017-08-29] MEDS: LANOLIN/MIN OIL/PETROLAT,WHT 3.5 GM TUBE EACHEYE SCH (21:10)
[2017-08-29 22:13] VITALS: BP 98/53
[2017-08-30] MEDS: LORAZEPAM 0.5 MG TABLET GT PRN ×2 (00:07→22:05)
--- NOTE | 2017-08-30 05:35 | NUR ---
pt rec'd trached on [facility] vent settings as charted. pt is stable and trach is intact and midline. no changes made throughout shift. vent plugged into red outlet. ambu bag bedside. alarms are set and audible. will continue to monitor Addendum: 08/30/17 at 0535 by CHIRAG MENDEZ RT Amended: Links added.
[2017-08-30] MEDS: BACLOFEN (10 MG) 10 MG TABLET GT SCH ×2 (06:07→17:44)
[2017-08-30] MEDS: PREVACID (NF) 30 MG TAB GT SCH (06:07)
[2017-08-30] MEDS: IPRATROPIUM NEB FS 0.5 MG/2.5 ML AMPUL.NEB IH SCH ×2 (07:38→19:40)
[2017-08-30 07:48] VITALS: BP 99/54
[2017-08-30] MEDS: HYDROGEN PEROXIDE 480 ML BOTTLE TP SCH ×2 (09:00→20:51)
[2017-08-30] MEDS: LACTULOSE 20 G/30 ML UDC GT SCH (09:00)
[2017-08-30] MEDS: PROSTAT (PYXIS) 30 ML UDC GT SCH ×2 (09:00→16:42)
[2017-08-30] MEDS: CELLUVISC EACHEYE SCH ×4 (09:00→20:51)
[2017-08-30] MEDS: Z GUARD REMEDY 4 OZ OINT TP SCH ×2 (09:00→20:51)
[2017-08-30] MEDS: KCL 20 MEQ/15 ML GT SCH (09:00)
[2017-08-30] MEDS: FUROSEMIDE SOLN 40 MG/5 ML UDC GT SCH (09:00)
[2017-08-30] MEDS: FERROUS SULFATE - FOR SA ONLY 330 MG/7.5 ML UDC GT SCH ×2 (09:00→16:42)
[2017-08-30] MEDS: MIDODRINE HCL (5MG) 5 MG TABLET GT SCH ×2 (09:00→20:51)
--- NOTE | 2017-08-30 13:00 | NUR ---
Pt noted with buttocks excoriation. Received order to apply Z-guard cream q shift for 14 days.
--- NOTE | 2017-08-30 15:19 | NUR ---
PT ANDER'D ON MECHNICAL VENT. PT SX T/O SHIFT. PT ANDER SECURE AND PATENT. AMBU BAG AT [facility]. VENT PLUGGED INTO RED OUTLET. ALARMS ON AND AUDIBLE. Addendum: 08/30/17 at 1521 by RADHA FERMIN RT Amended: Links added.
[2017-08-30 20:17] VITALS: BP 101/62
[2017-08-30] MEDS: MULTIVIT, IRON, MIN NO. 8, FA 1 TAB GT SCH (20:51)
[2017-08-30] MEDS: SENNOSIDES 8.6 MG TABLET GT SCH (21:01)
[2017-08-30] MEDS: LANOLIN/MIN OIL/PETROLAT,WHT 3.5 GM TUBE EACHEYE SCH (21:01)
[2017-08-30 22:01] VITALS: BP 101/62
--- NOTE | 2017-08-31 04:33 | NUR ---
RT PT RECEIVED ON [facility] VENT WITH NOTED SETTING. ALARMS SET AND AUDIBLE. VENT TO RED OUTLET. RECORD CENTER COORDINATOR DONE. TRACH PATENT AND SECURE. AMBU BAG AT [facility]. NO SOB OR RESP DISTRESS NOTED ON SHIFT. Addendum: 08/31/17 at 0433 by SUJEY EDWARD RT Amended: Links added.
[2017-08-31] MEDS: BACLOFEN (10 MG) 10 MG TABLET GT SCH ×2 (05:27→17:45)
[2017-08-31] MEDS: PREVACID (NF) 30 MG TAB GT SCH (05:27)
[2017-08-31 07:38] VITALS: BP 106/66
[2017-08-31] MEDS: IPRATROPIUM NEB FS 0.5 MG/2.5 ML AMPUL.NEB IH SCH ×2 (08:22→20:13)
[2017-08-31] MEDS: LACTULOSE 20 G/30 ML UDC GT SCH (08:43)
[2017-08-31] MEDS: CELLUVISC EACHEYE SCH ×4 (08:43→20:56)
[2017-08-31] MEDS: HYDROGEN PEROXIDE 480 ML BOTTLE TP SCH ×2 (08:43→20:57)
[2017-08-31] MEDS: KCL 20 MEQ/15 ML GT SCH (08:43)
[2017-08-31] MEDS: FERROUS SULFATE - FOR SA ONLY 330 MG/7.5 ML UDC GT SCH ×2 (08:43→16:21)
[2017-08-31] MEDS: FUROSEMIDE SOLN 40 MG/5 ML UDC GT SCH (08:43)
[2017-08-31] MEDS: Z GUARD REMEDY 4 OZ OINT TP SCH ×4 (08:43→20:58)
[2017-08-31] MEDS: PROSTAT (PYXIS) 30 ML UDC GT SCH ×2 (08:43→16:21)
[2017-08-31] MEDS: MIDODRINE HCL (5MG) 5 MG TABLET GT SCH ×2 (08:43→20:56)
--- NOTE | 2017-08-31 10:40 | NUR ---
Seen and examined by with new order for cool aerosol starting on 09/01/17 at 0800.ABG after 1 hr at 0900am.continue to monitor.
--- NOTE | 2017-08-31 17:27 | NUR ---
RT END OF THE SHIFT REPORT, PT 51 Y OLD FEMALE REMAIN TRACHED SHILEY # 6 XLT DISTAL ON THE VENT WITH NOTED SETTINGS. PT IS AWAKE BUT DOES NOT FOLLOW COMMANDS. VENT ALARMS ARE SET AND AUDIBLE WITH AMBU BAG AT THE BEDSIDE. LUGGAGE ATTENDANT CUFF PRESSURE NOTED. VENT IS PLUGGED INTO RED OUTLET. B/S BILATERALLY RHONCHI SX MODERATE THICK YELLOW SECRETIONS. NO RESPIRATORY DISTRESS NOTED T/O SHIFT, TX'S GIVEN INLINE NO ADVERSE REACTION NOTED. HME CHANGED. WILL CONTINUE TO MONITOR. REPORT WILL BE GIVEN TO PM SHIFT. Addendum: 08/31/17 at 1728 by LIZBETH PIMENTEL RT Amended: Links added.
--- NOTE | 2017-08-31 20:13 | NUR ---
RT NOTE PATIENT RECEIVED TRACHED IN STABLE CONDITION ON MECHANICAL VENTILATOR. PATIENT IS TOLERATING CURRENT ORDERED SETTINGS. NO RESPIRATORY DISTRESS NOTED. TRACH IS PATENT AND SECURE. MECHANICAL VENT IS PLUGGED INTO RED OUTLET. ALARMS ARE ON AND AUDIBLE. EMERGENCY EQUIPMENT AT BEDSIDE. WILL CONTINUE TO MONITOR. Addendum: 08/31/17 at 2023 by NANI PALMA RT Amended: Links added.
[2017-08-31] MEDS: MULTIVIT, IRON, MIN NO. 8, FA 1 TAB GT SCH (20:56)
[2017-08-31] MEDS: LANOLIN/MIN OIL/PETROLAT,WHT 3.5 GM TUBE EACHEYE SCH (21:00)
[2017-08-31] MEDS: SENNOSIDES 8.6 MG TABLET GT SCH (21:00)
[2017-08-31 22:01] VITALS: BP 95/67
[2017-08-31 22:54] VITALS: BP 95/67
[2017-09-01] MEDS: BACLOFEN (10 MG) 10 MG TABLET GT SCH ×2 (05:41→17:12)
[2017-09-01] MEDS: PREVACID (NF) 30 MG TAB GT SCH (05:41)
[2017-09-01 07:46] VITALS: BP 107/68
[2017-09-01] MEDS: IPRATROPIUM NEB FS 0.5 MG/2.5 ML AMPUL.NEB IH SCH ×2 (08:45→20:26)
--- NOTE | 2017-09-01 08:58 | NUR ---
PT PLACED INTO COOL AEROSOL @ 35% FIO2 ORDER. SPO2 99% HR 92 Addendum: 09/01/17 at 0859 by KYLIE LOW RT Amended: Links added.
[2017-09-01] MEDS: PROSTAT (PYXIS) 30 ML UDC GT SCH ×2 (09:00→16:44)
[2017-09-01] MEDS: LACTULOSE 20 G/30 ML UDC GT SCH (09:00)
[2017-09-01] MEDS: FUROSEMIDE SOLN 40 MG/5 ML UDC GT SCH (09:00)
[2017-09-01] MEDS: HYDROGEN PEROXIDE 480 ML BOTTLE TP SCH ×2 (09:00→21:10)
[2017-09-01] MEDS: CELLUVISC EACHEYE SCH ×4 (09:00→21:09)
[2017-09-01] MEDS: Z GUARD REMEDY 4 OZ OINT TP SCH ×4 (09:00→21:10)
[2017-09-01] MEDS: MIDODRINE HCL (5MG) 5 MG TABLET GT SCH ×2 (09:00→21:10)
[2017-09-01] MEDS: FERROUS SULFATE - FOR SA ONLY 330 MG/7.5 ML UDC GT SCH ×2 (09:00→16:44)
[2017-09-01] MEDS: KCL 20 MEQ/15 ML GT SCH (09:00)
[2017-09-01 10:20] LABS: ABG BASE EXCESS 2.7 mmol/L; ABG OXYGEN SATURATION 96.7 % (92.0-98.5); ABG PCO2 43.7 mmHg (35.0-45.0); ABG PH 7.417 (7.350-7.450); ABG PO2 95.2 mmHg (75.0-100.0); AaDO2 103.6 mmHg; COHb 0.3 % (0.5-1.5); MetHb 0.6 % (0.0-1.5); O2Hb 95.8 % (94.0-97.0); SITE, ABG Left Radial; VENT MODE, BG COOL AEROSOL @ 35%
[2017-09-01] MEDS ORDERED: CEFTRIAXONE 1 G in IV D5W 50 ML IV SCH (16:00)
[2017-09-01] MEDS: VANCOMYCIN 1 GM in IV D5W 250ml IV SCH (16:15)
[2017-09-01] MEDS: CEFTRIAXONE 1 G in IV D5W 50 ML IV SCH (16:46)
[2017-09-01] MEDS ORDERED: VANCOMYCIN 1 GM in IV D5W 250ml IV SCH (17:00)
--- NOTE | 2017-09-01 18:28 | NUR ---
PATIENT NOTED WITH REDNESS ON BLE, PHOTOS TAKEN, CARL (ID) HEAD CHOPPER NOTIFIED BY CHARGE NURSE AND RECEIVED NEW ORDER TO START PATIENT ON VANCOMYCIN IV AND ROCEPHIN IV, ANTIBIOTICS ADMINISTERED, WITH NO ADVERSE REACTION NOTED AT THIS TIME.
[2017-09-01 19:50] VITALS: BP 106/62
[2017-09-01] MEDS: LANOLIN/MIN OIL/PETROLAT,WHT 3.5 GM TUBE EACHEYE SCH (21:10)
[2017-09-01] MEDS: RENAL NOVASOURCE 1,000 ML BOTTLE GT PRN (21:10)
[2017-09-01] MEDS: SENNOSIDES 8.6 MG TABLET GT SCH (21:10)
[2017-09-01] MEDS: MULTIVIT, IRON, MIN NO. 8, FA 1 TAB GT SCH (21:10)
[2017-09-02] MEDS: VANCOMYCIN 1 GM in IV D5W 250ml IV SCH ×2 (03:48→16:00)
[2017-09-02] MEDS: PREVACID (NF) 30 MG TAB GT SCH (05:08)
[2017-09-02] MEDS: BACLOFEN (10 MG) 10 MG TABLET GT SCH ×2 (05:08→17:22)
[2017-09-02 07:25] VITALS: BP_SYST 135; BP_SYST 143; BP_DIAS 71; BP_DIAS 89
[2017-09-02] MEDS: IPRATROPIUM NEB FS 0.5 MG/2.5 ML AMPUL.NEB IH SCH ×2 (07:38→19:44)
[2017-09-02] MEDS: KCL 20 MEQ/15 ML GT SCH (09:23)
[2017-09-02] MEDS: MIDODRINE HCL (5MG) 5 MG TABLET GT SCH ×2 (09:23→21:00)
[2017-09-02] MEDS: Z GUARD REMEDY 4 OZ OINT TP SCH ×4 (09:23→21:00)
[2017-09-02] MEDS: HYDROGEN PEROXIDE 480 ML BOTTLE TP SCH ×2 (09:23→21:00)
[2017-09-02] MEDS: FUROSEMIDE SOLN 40 MG/5 ML UDC GT SCH (09:23)
[2017-09-02] MEDS: FERROUS SULFATE - FOR SA ONLY 330 MG/7.5 ML UDC GT SCH ×2 (09:23→17:22)
[2017-09-02] MEDS: CELLUVISC EACHEYE SCH ×4 (09:23→21:00)
[2017-09-02] MEDS: PROSTAT (PYXIS) 30 ML UDC GT SCH ×2 (09:23→17:22)
[2017-09-02] MEDS: LACTULOSE 20 G/30 ML UDC GT SCH (09:23)
[2017-09-02] MEDS: CEFTRIAXONE 1 G in IV D5W 50 ML IV SCH (17:00)
--- NOTE | 2017-09-02 19:05 | NUR ---
Clarified stop dates for Vancomycin and Rocephin. REPAIR OPERATOR Makeda ordered to give both antibiotics for a total of 2 weeks.
[2017-09-02 19:31] VITALS: BP 134/92
[2017-09-02] MEDS: MULTIVIT, IRON, MIN NO. 8, FA 1 TAB GT SCH (21:00)
[2017-09-02] MEDS: LANOLIN/MIN OIL/PETROLAT,WHT 3.5 GM TUBE EACHEYE SCH (22:10)
[2017-09-02] MEDS: SENNOSIDES 8.6 MG TABLET GT SCH (22:10)
[2017-09-03] MEDS: VANCOMYCIN 1 GM in IV D5W 250ml IV SCH ×2 (04:00→04:08)
--- NOTE | 2017-09-03 04:00 | NUR ---
Vancomycin dose for 0400 not given ,Vancomycin trough 25mg/dl high.[facility]
[2017-09-03 04:16] LABS: CREATININE 0.5 mg/dL (0.6-1.3)
[2017-09-03] MEDS: RENAL NOVASOURCE 1,000 ML BOTTLE GT PRN (04:45)
[2017-09-03] MEDS: PREVACID (NF) 30 MG TAB GT SCH (05:00)
[2017-09-03] MEDS: BACLOFEN (10 MG) 10 MG TABLET GT SCH ×2 (05:00→17:06)
[2017-09-03 07:25] VITALS: BP 84/55
[2017-09-03] MEDS: IPRATROPIUM NEB FS 0.5 MG/2.5 ML AMPUL.NEB IH SCH ×2 (07:43→20:17)
[2017-09-03] MEDS: CELLUVISC EACHEYE SCH ×4 (09:38→20:59)
[2017-09-03] MEDS: FERROUS SULFATE - FOR SA ONLY 330 MG/7.5 ML UDC GT SCH ×2 (09:38→16:51)
[2017-09-03] MEDS: FUROSEMIDE SOLN 40 MG/5 ML UDC GT SCH (09:38)
[2017-09-03] MEDS: Z GUARD REMEDY 4 OZ OINT TP SCH ×4 (09:38→21:02)
[2017-09-03] MEDS: LACTULOSE 20 G/30 ML UDC GT SCH (09:38)
[2017-09-03] MEDS: MIDODRINE HCL (5MG) 5 MG TABLET GT SCH ×2 (09:38→21:00)
[2017-09-03] MEDS: PROSTAT (PYXIS) 30 ML UDC GT SCH ×2 (09:38→16:51)
[2017-09-03] MEDS: KCL 20 MEQ/15 ML GT SCH (09:38)
--- NOTE | 2017-09-03 09:40 | NUR ---
Obtained an order from Dr. Macario to continue order of PRN Ativan.
--- NOTE | 2017-09-03 10:20 | NUR ---
Seen and examined by Coby Pabon NP, no new order given. Resident stable on cool aerosol, tolerating well, no SOB, O2 sat 98-99%. [facility] of Vancomycin trough level of 25, spoke with Yan and said to hold dose today and will do a random Vanco level.
[2017-09-03] MEDS: HYDROGEN PEROXIDE 480 ML BOTTLE TP SCH ×2 (10:45→21:01)
[2017-09-03] MEDS: CEFTRIAXONE 1 G in IV D5W 50 ML IV SCH (16:53)
[2017-09-03 19:26] VITALS: BP 111/74
[2017-09-03] MEDS: MULTIVIT, IRON, MIN NO. 8, FA 1 TAB GT SCH (21:01)
[2017-09-03] MEDS: SENNOSIDES 8.6 MG TABLET GT SCH (21:02)
[2017-09-03] MEDS: LANOLIN/MIN OIL/PETROLAT,WHT 3.5 GM TUBE EACHEYE SCH (21:02)
[2017-09-03 22:00] VITALS: BP 111/74
[2017-09-04] MEDS: BACLOFEN (10 MG) 10 MG TABLET GT SCH ×2 (05:00→17:07)
[2017-09-04] MEDS: PREVACID (NF) 30 MG TAB GT SCH (05:00)
[2017-09-04] MEDS: IPRATROPIUM NEB FS 0.5 MG/2.5 ML AMPUL.NEB IH SCH ×2 (07:23→19:15)
[2017-09-04 07:36] VITALS: BP 97/68
--- NOTE | 2017-09-04 07:55 | NUR ---
Vancomycin ramdom level result (14 L) faxed to [facility] IV pharmacy. Awaiting for new dosing.
[2017-09-04] MEDS: Z GUARD REMEDY 4 OZ OINT TP SCH ×4 (09:00→21:43)
[2017-09-04] MEDS: CELLUVISC EACHEYE SCH ×4 (09:00→21:42)
[2017-09-04] MEDS: MIDODRINE HCL (5MG) 5 MG TABLET GT SCH ×2 (09:00→21:42)
[2017-09-04] MEDS: KCL 20 MEQ/15 ML GT SCH (09:00)
[2017-09-04] MEDS: FUROSEMIDE SOLN 40 MG/5 ML UDC GT SCH (09:00)
[2017-09-04] MEDS: HYDROGEN PEROXIDE 480 ML BOTTLE TP SCH ×2 (09:00→21:42)
[2017-09-04] MEDS: FERROUS SULFATE - FOR SA ONLY 330 MG/7.5 ML UDC GT SCH ×2 (09:00→17:07)
[2017-09-04] MEDS: LACTULOSE 20 G/30 ML UDC GT SCH (09:00)
[2017-09-04] MEDS: PROSTAT (PYXIS) 30 ML UDC GT SCH ×2 (09:00→17:07)
[2017-09-04] MEDS: VANCOMYCIN 1 GM in IV D5W 250ml IV SCH (16:00)
--- NOTE | 2017-09-04 16:30 | NUR ---
NIKI Ashford evaluated resident's lower extremities for redness/cellulitis with new order to keep ATB for another 5 days. Order carried out. Based on random Vanco level, the dosing was change from Vanco 1 gm. q12 to q 24 hours with repeat Vanco trough level, BUN and Creat on 09/06. Left a message to Sabrina's (mother) VM regarding above orders. Patient tolerating cool aerosol, no SOB and saturating well at 98%.
[2017-09-04] MEDS: CEFTRIAXONE 1 G in IV D5W 50 ML IV SCH (17:00)
[2017-09-04] MEDS: MULTIVIT, IRON, MIN NO. 8, FA 1 TAB GT SCH (21:42)
[2017-09-04] MEDS: LANOLIN/MIN OIL/PETROLAT,WHT 3.5 GM TUBE EACHEYE SCH (21:43)
[2017-09-04] MEDS: SENNOSIDES 8.6 MG TABLET GT SCH (21:43)
[2017-09-04] MEDS: LORAZEPAM 0.5 MG TABLET GT PRN (23:30)
[2017-09-05 00:19] VITALS: BP 95/57
[2017-09-05] MEDS: ACETAMINOPHEN 650 MG/20 ML UDC- FOR SA PATIENTS ONLY GT PRN (01:00)
[2017-09-05] MEDS: PREVACID (NF) 30 MG TAB GT SCH (05:16)
[2017-09-05] MEDS: BACLOFEN (10 MG) 10 MG TABLET GT SCH ×2 (05:16→17:22)
[2017-09-05] MEDS: RENAL NOVASOURCE 1,000 ML BOTTLE GT PRN (05:16)
[2017-09-05] MEDS: LORAZEPAM 0.5 MG TABLET GT PRN (05:30)
[2017-09-05 07:52] VITALS: BP 108/51
[2017-09-05] MEDS: IPRATROPIUM NEB FS 0.5 MG/2.5 ML AMPUL.NEB IH SCH ×2 (08:33→20:21)
[2017-09-05] MEDS: Z GUARD REMEDY 4 OZ OINT TP SCH ×4 (09:00→21:01)
[2017-09-05] MEDS: CELLUVISC EACHEYE SCH ×4 (09:00→20:56)
[2017-09-05] MEDS: HYDROGEN PEROXIDE 480 ML BOTTLE TP SCH ×2 (09:00→21:01)
[2017-09-05] MEDS: FUROSEMIDE SOLN 40 MG/5 ML UDC GT SCH (09:00)
[2017-09-05] MEDS: LACTULOSE 20 G/30 ML UDC GT SCH (09:00)
[2017-09-05] MEDS: KCL 20 MEQ/15 ML GT SCH (09:00)
[2017-09-05] MEDS: PROSTAT (PYXIS) 30 ML UDC GT SCH ×2 (09:00→16:04)
[2017-09-05] MEDS: FERROUS SULFATE - FOR SA ONLY 330 MG/7.5 ML UDC GT SCH ×2 (09:00→16:04)
[2017-09-05] MEDS: MIDODRINE HCL (5MG) 5 MG TABLET GT SCH ×2 (09:00→21:01)
[2017-09-05] MEDS: VANCOMYCIN 1 GM in IV D5W 250ml IV SCH (16:00)
[2017-09-05] MEDS: CEFTRIAXONE 1 G in IV D5W 50 ML IV SCH (17:30)
[2017-09-05] MEDS: MULTIVIT, IRON, MIN NO. 8, FA 1 TAB GT SCH (21:01)
[2017-09-05] MEDS: SENNOSIDES 8.6 MG TABLET GT SCH (21:01)
[2017-09-05] MEDS: LANOLIN/MIN OIL/PETROLAT,WHT 3.5 GM TUBE EACHEYE SCH (21:01)
[2017-09-05 22:05] VITALS: BP 101/62
[2017-09-06] MEDS: BACLOFEN (10 MG) 10 MG TABLET GT SCH ×2 (06:02→17:26)
[2017-09-06] MEDS: PREVACID (NF) 30 MG TAB GT SCH (06:02)
[2017-09-06] MEDS: IPRATROPIUM NEB FS 0.5 MG/2.5 ML AMPUL.NEB IH SCH ×2 (07:50→19:37)
[2017-09-06 08:17] VITALS: BP 99/65
[2017-09-06] MEDS: FUROSEMIDE SOLN 40 MG/5 ML UDC GT SCH (08:42)
[2017-09-06] MEDS: KCL 20 MEQ/15 ML GT SCH (08:42)
[2017-09-06] MEDS: CELLUVISC EACHEYE SCH ×4 (08:42→21:23)
[2017-09-06] MEDS: FERROUS SULFATE - FOR SA ONLY 330 MG/7.5 ML UDC GT SCH ×2 (08:42→17:03)
[2017-09-06] MEDS: LACTULOSE 20 G/30 ML UDC GT SCH (08:42)
[2017-09-06] MEDS: PROSTAT (PYXIS) 30 ML UDC GT SCH ×2 (08:43→17:03)
[2017-09-06] MEDS: MIDODRINE HCL (5MG) 5 MG TABLET GT SCH ×2 (08:43→21:23)
[2017-09-06] MEDS: Z GUARD REMEDY 4 OZ OINT TP SCH ×4 (09:00→21:24)
[2017-09-06] MEDS: HYDROGEN PEROXIDE 480 ML BOTTLE TP SCH ×2 (09:00→21:23)
[2017-09-06 15:53] LABS: CREATININE 0.5 mg/dL (0.6-1.3)
[2017-09-06] MEDS: VANCOMYCIN 1 GM in IV D5W 250ml IV SCH (16:00)
[2017-09-06] MEDS: CEFTRIAXONE 1 G in IV D5W 50 ML IV SCH (17:00)
--- NOTE | 2017-09-06 17:25 | NUR ---
Vancomycin trough 13 BUN 19 Cr 0.5. Received order to give same dose of Vancomycin 1 gm IV q 24 hours until completion of therapy on 09/09/17, no more Vancomycin trough needed.
[2017-09-06 20:58] VITALS: BP 98/57
[2017-09-06] MEDS: MULTIVIT, IRON, MIN NO. 8, FA 1 TAB GT SCH (21:23)
[2017-09-06] MEDS: LANOLIN/MIN OIL/PETROLAT,WHT 3.5 GM TUBE EACHEYE SCH (21:24)
[2017-09-06] MEDS: SENNOSIDES 8.6 MG TABLET GT SCH (21:24)
[2017-09-06 22:17] VITALS: BP 98/57
[2017-09-07] MEDS: PREVACID (NF) 30 MG TAB GT SCH (05:39)
[2017-09-07] MEDS: BACLOFEN (10 MG) 10 MG TABLET GT SCH ×2 (05:39→18:01)
[2017-09-07 07:55] VITALS: BP 109/76
[2017-09-07] MEDS: IPRATROPIUM NEB FS 0.5 MG/2.5 ML AMPUL.NEB IH SCH ×2 (08:05→20:02)
[2017-09-07] MEDS: Z GUARD REMEDY 4 OZ OINT TP SCH ×4 (09:00→20:19)
[2017-09-07] MEDS: FERROUS SULFATE - FOR SA ONLY 330 MG/7.5 ML UDC GT SCH ×2 (09:00→17:07)
[2017-09-07] MEDS: LACTULOSE 20 G/30 ML UDC GT SCH (09:00)
[2017-09-07] MEDS: KCL 20 MEQ/15 ML GT SCH (09:00)
[2017-09-07] MEDS: HYDROGEN PEROXIDE 480 ML BOTTLE TP SCH ×2 (09:00→20:18)
[2017-09-07] MEDS: FUROSEMIDE SOLN 40 MG/5 ML UDC GT SCH (09:00)
[2017-09-07] MEDS: PROSTAT (PYXIS) 30 ML UDC GT SCH ×2 (09:00→17:07)
[2017-09-07] MEDS: CELLUVISC EACHEYE SCH ×4 (09:00→20:17)
[2017-09-07] MEDS: MIDODRINE HCL (5MG) 5 MG TABLET GT SCH ×2 (09:00→20:18)
--- NOTE | 2017-09-07 14:02 | NUR ---
Seen and examined by Dr Macario - no new orders, to continue with current plan of care.
[2017-09-07] MEDS: VANCOMYCIN 1 GM in IV D5W 250ml IV SCH (15:52)
[2017-09-07] MEDS: CEFTRIAXONE 1 G in IV D5W 50 ML IV SCH (17:59)
[2017-09-07] MEDS: RENAL NOVASOURCE 1,000 ML BOTTLE GT PRN (18:01)
[2017-09-07] MEDS: MULTIVIT, IRON, MIN NO. 8, FA 1 TAB GT SCH (20:18)
[2017-09-07 20:51] VITALS: BP 105/70
[2017-09-07] MEDS: LANOLIN/MIN OIL/PETROLAT,WHT 3.5 GM TUBE EACHEYE SCH (22:03)
[2017-09-07] MEDS: SENNOSIDES 8.6 MG TABLET GT SCH (22:03)
[2017-09-08] MEDS: LORAZEPAM 0.5 MG TABLET GT PRN ×2 (00:19→06:25)
--- NOTE | 2017-09-08 00:21 | NUR ---
PT IS HAVING ANXIETY EPISODE, HAVING A HR OF 145 AND UP, GIVEN HER PRN MED ATIVAN 0.5 MG, CONTINUE TO MONITOR PT HR . Addendum: 09/08/17 at 0631 by RADHA SMITH LVN pt was ck after an hour, HR is down significantly and pt is calm down, continue to monitor pt for any s/s of anxiety leading to respiratory distress.
[2017-09-08] MEDS: PREVACID (NF) 30 MG TAB GT SCH (05:26)
[2017-09-08] MEDS: BACLOFEN (10 MG) 10 MG TABLET GT SCH ×2 (05:26→17:54)
--- NOTE | 2017-09-08 06:25 | NUR ---
pt has another episode of anxiety leading to respiratory distress, HR is highly elevated, prn med ativan 0.5 is given and continue to monitor pt .
[2017-09-08 07:32] VITALS: BP 93/54
[2017-09-08] MEDS: IPRATROPIUM NEB FS 0.5 MG/2.5 ML AMPUL.NEB IH SCH ×2 (08:30→19:47)
[2017-09-08] MEDS: CELLUVISC EACHEYE SCH ×4 (09:25→21:00)
[2017-09-08] MEDS: LACTULOSE 20 G/30 ML UDC GT SCH (09:25)
[2017-09-08] MEDS: FUROSEMIDE SOLN 40 MG/5 ML UDC GT SCH (09:27)
[2017-09-08] MEDS: FERROUS SULFATE - FOR SA ONLY 330 MG/7.5 ML UDC GT SCH ×2 (09:27→17:54)
[2017-09-08] MEDS: MIDODRINE HCL (5MG) 5 MG TABLET GT SCH ×2 (09:27→21:00)
[2017-09-08] MEDS: KCL 20 MEQ/15 ML GT SCH (09:27)
[2017-09-08] MEDS: Z GUARD REMEDY 4 OZ OINT TP SCH ×4 (09:28→21:00)
[2017-09-08] MEDS: ACETAMINOPHEN 650 MG/20 ML UDC- FOR SA PATIENTS ONLY GT PRN (09:28)
[2017-09-08] MEDS: HYDROGEN PEROXIDE 480 ML BOTTLE TP SCH ×2 (09:28→21:00)
[2017-09-08] MEDS: PROSTAT (PYXIS) 30 ML UDC GT SCH ×2 (09:28→17:54)
[2017-09-08] MEDS: VANCOMYCIN 1 GM in IV D5W 250ml IV SCH (16:00)
[2017-09-08] MEDS: CEFTRIAXONE 1 G in IV D5W 50 ML IV SCH (17:00)
[2017-09-08 20:03] VITALS: BP 102/61
[2017-09-08] MEDS: MULTIVIT, IRON, MIN NO. 8, FA 1 TAB GT SCH (21:00)
[2017-09-08] MEDS: LANOLIN/MIN OIL/PETROLAT,WHT 3.5 GM TUBE EACHEYE SCH (22:25)
[2017-09-08] MEDS: SENNOSIDES 8.6 MG TABLET GT SCH (22:26)
[2017-09-09] MEDS: PREVACID (NF) 30 MG TAB GT SCH (06:42)
[2017-09-09] MEDS: BACLOFEN (10 MG) 10 MG TABLET GT SCH ×2 (06:42→17:15)
[2017-09-09] MEDS: RENAL NOVASOURCE 1,000 ML BOTTLE GT PRN (06:45)
[2017-09-09 07:25] VITALS: BP 80/49
[2017-09-09] MEDS: IPRATROPIUM NEB FS 0.5 MG/2.5 ML AMPUL.NEB IH SCH ×2 (08:07→19:52)
[2017-09-09] MEDS: CELLUVISC EACHEYE SCH ×4 (08:35→21:00)
[2017-09-09] MEDS: KCL 20 MEQ/15 ML GT SCH (08:35)
[2017-09-09] MEDS: LACTULOSE 20 G/30 ML UDC GT SCH (08:35)
[2017-09-09] MEDS: FERROUS SULFATE - FOR SA ONLY 330 MG/7.5 ML UDC GT SCH ×2 (08:35→17:15)
[2017-09-09] MEDS: FUROSEMIDE SOLN 40 MG/5 ML UDC GT SCH (08:35)
[2017-09-09] MEDS: MIDODRINE HCL (5MG) 5 MG TABLET GT SCH ×2 (08:36→21:00)
[2017-09-09] MEDS: HYDROGEN PEROXIDE 480 ML BOTTLE TP SCH ×2 (08:36→21:00)
[2017-09-09] MEDS: PROSTAT (PYXIS) 30 ML UDC GT SCH ×2 (08:36→17:15)
[2017-09-09] MEDS: Z GUARD REMEDY 4 OZ OINT TP SCH ×4 (08:36→21:00)
--- NOTE | 2017-09-09 09:21 | NUR ---
Sent referral to [facility] the [facility] for three month podiatry follow up by Dr. Monsivais. SW will follow up.
[2017-09-09 09:30] VITALS: BP 98/63
--- NOTE | 2017-09-09 09:44 | NUR ---
LIZANDRO sent referral to [facility] for podiatry follow up by Dr. Monsivais. LIZANDRO will follow up.
[2017-09-09] MEDS: VANCOMYCIN 1 GM in IV D5W 250ml IV SCH (16:00)
[2017-09-09] MEDS: CEFTRIAXONE 1 G in IV D5W 50 ML IV SCH (19:30)
[2017-09-09] MEDS: MULTIVIT, IRON, MIN NO. 8, FA 1 TAB GT SCH (21:00)
[2017-09-09 21:57] VITALS: BP 100/64
[2017-09-09] MEDS: LANOLIN/MIN OIL/PETROLAT,WHT 3.5 GM TUBE EACHEYE SCH (22:03)
[2017-09-09] MEDS: SENNOSIDES 8.6 MG TABLET GT SCH (22:03)
[2017-09-10] MEDS: PREVACID (NF) 30 MG TAB GT SCH (05:39)
[2017-09-10] MEDS: RENAL NOVASOURCE 1,000 ML BOTTLE GT PRN (05:39)
[2017-09-10] MEDS: BACLOFEN (10 MG) 10 MG TABLET GT SCH ×2 (05:39→17:48)
[2017-09-10] MEDS: IPRATROPIUM NEB FS 0.5 MG/2.5 ML AMPUL.NEB IH SCH ×2 (07:37→19:59)
[2017-09-10 07:44] VITALS: BP 89/54
[2017-09-10] MEDS: LACTULOSE 20 G/30 ML UDC GT SCH (08:37)
[2017-09-10] MEDS: CELLUVISC EACHEYE SCH ×4 (08:37→20:26)
[2017-09-10] MEDS: HYDROGEN PEROXIDE 480 ML BOTTLE TP SCH ×2 (08:38→20:27)
[2017-09-10] MEDS: FERROUS SULFATE - FOR SA ONLY 330 MG/7.5 ML UDC GT SCH ×2 (08:38→17:48)
[2017-09-10] MEDS: Z GUARD REMEDY 4 OZ OINT TP SCH ×4 (08:38→20:27)
[2017-09-10] MEDS: PROSTAT (PYXIS) 30 ML UDC GT SCH ×2 (08:38→17:48)
[2017-09-10] MEDS: MIDODRINE HCL (5MG) 5 MG TABLET GT SCH ×2 (08:38→20:27)
[2017-09-10] MEDS: FUROSEMIDE SOLN 40 MG/5 ML UDC GT SCH (08:38)
[2017-09-10] MEDS: KCL 20 MEQ/15 ML GT SCH (08:38)
[2017-09-10 09:30] VITALS: BP 99/52
[2017-09-10] MEDS: LACTULOSE 10 G/15 ML UDC (PYXIS) GT PRN (16:30)
[2017-09-10] MEDS: CEFTRIAXONE 1 G in IV D5W 50 ML IV SCH (17:00)
[2017-09-10] MEDS: MULTIVIT, IRON, MIN NO. 8, FA 1 TAB GT SCH (20:27)
[2017-09-10] MEDS: SENNOSIDES 8.6 MG TABLET GT SCH (21:05)
[2017-09-10] MEDS: LANOLIN/MIN OIL/PETROLAT,WHT 3.5 GM TUBE EACHEYE SCH (21:05)
[2017-09-10 22:00] VITALS: BP 109/65
[2017-09-10] MEDS: LORAZEPAM 0.5 MG TABLET GT PRN (22:45)
--- NOTE | 2017-09-11 00:03 | NUR ---
PT SHOWED SIGNS OF TACHYPNEA, TACHYCARDIA, AND RESP DISTRESS. PT PLACED BACK ON [facility] VENT PER MD ORDERS. WILL CONTINUE TO MONITOR. Addendum: 09/11/17 at 0005 by CHIRAG MENDEZ RT Amended: Links added.
[2017-09-11] MEDS: ONDANSETRON 4 MG TAB.RAPDIS GT PRN ×2 (01:09→13:30)
--- NOTE | 2017-09-11 01:13 | NUR ---
@2250 ( 09-10-17) Pt with episode of respiratory distress, increased hr 150's rr 40's Spo02 94% on cool aerosol, Prn Ativan 0.5 mg given as ordered, repositioned pt, made rn charge aware, assessed pt and cont to monitor. 2330- stil noted with tachypnea, increased wob, Rt @ bs providing resp care, resp tx. @0003 Placed pt on ventilator by RT, per md's order d/t resp distress. Appears effective and with helped, pt's rr 22 Spo02 97% hr 117 at this time. @0109 Noted x1 emesis approx 20cc's feeding color, with coughing episode, PRN Zofran given for n/v, suctioned pt's trach and oral, and monitor for s/sx of aspiration. Kept hob elevated. Will cont to monitor pt.
[2017-09-11] MEDS: LACTULOSE 10 G/15 ML UDC (PYXIS) GT PRN (05:19)
[2017-09-11] MEDS: PREVACID (NF) 30 MG TAB GT SCH (05:19)
[2017-09-11] MEDS: BACLOFEN (10 MG) 10 MG TABLET GT SCH ×2 (05:19→17:13)
--- NOTE | 2017-09-11 05:36 | NUR ---
PT REC'D TRACHED ON COOL AEROSOL. RESP DISTRESS AND O2 DESATURATION NOTED @ MIDNIGHT. PT SHOWED SIGNS OF TACHYCARDIA AND TACHYPNEA. SX'D THIN MODERATE YELLOW SECRETIONS WITH VOMIT. PT WAS PLACED BACK ON [facility] VENT WITH PREVIOUS SETTINGS PER MD ORDERS. TRACH MIDLINE AND PATENT. VENT PLUGGED INTO RED OUTLET. ALARMS ARE SET AND AUDIBLE. AMBU BAG BEDSIDE. WILL CONTINUE TO MONITOR Addendum: 09/11/17 at 0539 by CHIRAG MENDEZ RT Amended: Links added.
[2017-09-11 07:51] VITALS: BP 92/36
[2017-09-11] MEDS: IPRATROPIUM NEB FS 0.5 MG/2.5 ML AMPUL.NEB IH SCH ×2 (07:54→20:06)
[2017-09-11] MEDS: KCL 20 MEQ/15 ML GT SCH (09:43)
[2017-09-11] MEDS: CELLUVISC EACHEYE SCH ×4 (09:43→21:00)
[2017-09-11] MEDS: LACTULOSE 20 G/30 ML UDC GT SCH (09:43)
[2017-09-11] MEDS: FERROUS SULFATE - FOR SA ONLY 330 MG/7.5 ML UDC GT SCH ×2 (09:43→17:13)
[2017-09-11] MEDS: FUROSEMIDE SOLN 40 MG/5 ML UDC GT SCH (09:44)
[2017-09-11] MEDS: PROSTAT (PYXIS) 30 ML UDC GT SCH ×2 (09:44→17:13)
[2017-09-11] MEDS: NYSTATIN TOP POWDER 15 GM BOTTLE TP SCH ×2 (09:44→21:00)
[2017-09-11] MEDS: MIDODRINE HCL (5MG) 5 MG TABLET GT SCH ×2 (09:44→21:00)
[2017-09-11] MEDS: HYDROGEN PEROXIDE 480 ML BOTTLE TP SCH ×2 (09:44→21:00)
[2017-09-11] MEDS: Z GUARD REMEDY 4 OZ OINT TP SCH ×4 (09:44→21:00)
--- NOTE | 2017-09-11 10:25 | NUR ---
Dr. Macario notified that patient developed tachycardia and tachypnea last night and patient was placed back on ventilator, Dr. Macario said to keep her on ventilator for now. Obtain and order for Ativan O.5mg as previously ordered but route to be given IV and to give GT if IV access not available. Left a message to Sabrina, resident's mother and Judith, sister regarding patient's condition and new order.
--- NOTE | 2017-09-11 11:20 | NUR ---
Sabrina and Judith both returned the call and inform family regarding patient's condition.
--- NOTE | 2017-09-11 16:33 | NUR ---
Resident's mother and grand daughter visiting. She was asking about whether patient will still return back to her prior level of functioning. Asked mom what level of functioning she is expecting her to return, she verbalized that she really believes she will be able to walk and talk. She said "I came here today because I dreamt about her last night. I have a friend who was on this condition like her for about 2 years and now she is recovering, I still pray for her". Acknowledged mother's feeling. Inform mother that patient was having distress and that was the reason she was put on ventilator last night.
[2017-09-11 20:21] VITALS: BP 116/68
[2017-09-11] MEDS: MULTIVIT, IRON, MIN NO. 8, FA 1 TAB GT SCH (21:00)
[2017-09-11] MEDS: SENNOSIDES 8.6 MG TABLET GT SCH (22:43)
[2017-09-11] MEDS: LANOLIN/MIN OIL/PETROLAT,WHT 3.5 GM TUBE EACHEYE SCH (22:43)
[2017-09-12] MEDS: LORAZEPAM INJ 2 MG/ML VIAL IVP PRN (01:09)
--- NOTE | 2017-09-12 01:10 | NUR ---
Patient awake and agitated. QM=469g and RR= 40s. Checked for urine and bowel movement but patient is clean and dry. Repositioned for comfort. Ativan 0.5mg IV given for agitation and respiratory distress. will continue to monitor.
[2017-09-12] MEDS: RENAL NOVASOURCE 1,000 ML BOTTLE GT PRN (04:14)
[2017-09-12] MEDS: PREVACID (NF) 30 MG TAB GT SCH (05:09)
[2017-09-12] MEDS: BACLOFEN (10 MG) 10 MG TABLET GT SCH ×2 (05:09→17:29)
--- NOTE | 2017-09-12 05:56 | NUR ---
Patient asleep and calm. no respiratory distress noted. will endorse to morning nurse.
[2017-09-12 07:33] VITALS: BP 112/39
[2017-09-12] MEDS: IPRATROPIUM NEB FS 0.5 MG/2.5 ML AMPUL.NEB IH SCH ×2 (07:40→20:16)
[2017-09-12] MEDS: FUROSEMIDE SOLN 40 MG/5 ML UDC GT SCH (09:09)
[2017-09-12] MEDS: KCL 20 MEQ/15 ML GT SCH (09:09)
[2017-09-12] MEDS: LACTULOSE 20 G/30 ML UDC GT SCH (09:09)
[2017-09-12] MEDS: FERROUS SULFATE - FOR SA ONLY 330 MG/7.5 ML UDC GT SCH ×2 (09:09→16:24)
[2017-09-12] MEDS: CELLUVISC EACHEYE SCH ×4 (09:09→21:00)
[2017-09-12] MEDS: NYSTATIN TOP POWDER 15 GM BOTTLE TP SCH ×2 (09:10→21:00)
[2017-09-12] MEDS: PROSTAT (PYXIS) 30 ML UDC GT SCH ×2 (09:10→16:25)
[2017-09-12] MEDS: HYDROGEN PEROXIDE 480 ML BOTTLE TP SCH ×2 (09:10→21:00)
[2017-09-12] MEDS: MIDODRINE HCL (5MG) 5 MG TABLET GT SCH ×2 (09:10→21:00)
[2017-09-12] MEDS: Z GUARD REMEDY 4 OZ OINT TP SCH ×4 (09:10→21:00)
--- NOTE | 2017-09-12 18:36 | NUR ---
RT NOTE PT IN STABLE CONDITION. PT REMAINS MECHANICALLY VENTILATED VIA TRACH TUBE. SETTINGS PRESCRIBED. ALARMS SET PER PROTOCOL AND AUDIBLE. VENT PLUGGED IN TO RED OUTLET. AMBU BAG AT BED SIDE. TRACH MIDLINE AND SECURE. CUFF INFLATED. NO DISTRESS NOTED.
[2017-09-12 19:23] VITALS: BP 98/63
[2017-09-12] MEDS: MULTIVIT, IRON, MIN NO. 8, FA 1 TAB GT SCH (21:00)
[2017-09-12] MEDS: SENNOSIDES 8.6 MG TABLET GT SCH (22:00)
[2017-09-12] MEDS: LANOLIN/MIN OIL/PETROLAT,WHT 3.5 GM TUBE EACHEYE SCH (22:00)
[2017-09-13] MEDS: BACLOFEN (10 MG) 10 MG TABLET GT SCH ×2 (06:18→18:25)
[2017-09-13] MEDS: PREVACID (NF) 30 MG TAB GT SCH (06:18)
[2017-09-13] MEDS: IPRATROPIUM NEB FS 0.5 MG/2.5 ML AMPUL.NEB IH SCH ×2 (06:56→19:26)
[2017-09-13 07:42] VITALS: BP 111/72
[2017-09-13] MEDS: LACTULOSE 20 G/30 ML UDC GT SCH (09:29)
[2017-09-13] MEDS: CELLUVISC EACHEYE SCH ×4 (09:29→20:08)
[2017-09-13] MEDS: FERROUS SULFATE - FOR SA ONLY 330 MG/7.5 ML UDC GT SCH ×2 (09:29→16:21)
[2017-09-13] MEDS: HYDROGEN PEROXIDE 480 ML BOTTLE TP SCH ×2 (09:30→20:09)
[2017-09-13] MEDS: FUROSEMIDE SOLN 40 MG/5 ML UDC GT SCH (09:30)
[2017-09-13] MEDS: MIDODRINE HCL (5MG) 5 MG TABLET GT SCH ×2 (09:30→20:09)
[2017-09-13] MEDS: KCL 20 MEQ/15 ML GT SCH (09:30)
[2017-09-13] MEDS: PROSTAT (PYXIS) 30 ML UDC GT SCH ×2 (09:30→16:21)
[2017-09-13] MEDS: Z GUARD REMEDY 4 OZ OINT TP SCH ×4 (09:30→20:10)
[2017-09-13] MEDS: NYSTATIN TOP POWDER 15 GM BOTTLE TP SCH ×2 (09:30→20:09)
--- NOTE | 2017-09-13 11:07 | NUR ---
Social Service Section of [employer] completed (3rd quarter). Resident is non communicative. She opens her eyes but cannot track. Sister Judith and mother Sabrina (her conservator) are involved in her care. Sister visits frequently. Resident was seen by electronics engineering technician Dr. Gómez on 06/21/2017. SW sent referral to [facility] at the wound center for Dr. Monsivais(head banquet waiter/waitress) to follow up with pt for tri-monthly visit. She was seen by Dr. Joshua VILLARREAL for a dental cleaning on 03/22/2017.
[2017-09-13] MEDS ORDERED: RENAL NOVASOURCE 1,000 ML BOTTLE GT PRN (16:30)
--- NOTE | 2017-09-13 16:30 | NUR ---
DR. Nichole Dugan came to do rounds, made aware of dietitian recommendation to change GT FEEDING FORMULA from novasorce to glytrol at 60 ml/hr due to elevated blood sugar. OK with . Made aware also that Phar recommended Omeprazole 20 mg 1 cap via GT DAILY in replacement of prevacid . OK with . Noted and carried out. Patients' mom Sabrina made aware of changes.
--- NOTE | 2017-09-13 16:51 | NUR ---
RT END OF THE SHIFT REPORT, PT 52 Y OLD FEMALE REMAIN TRACHED SHILEY XLT # 6 ON THE VENT WITH NOTED SETTINGS. PT IS AWAKE BUT DOES NOT FOLLOW COMMANDS. VENT ALARMS ARE SET AND AUDIBLE WITH, AMBU BAG AT THE BEDSIDE. TX'S GIVEN INLINE NO ADVERSE REACTION NOTED, HAM CLERK CUFF PRESSURE CHECKED HME CHANGED. VENT IS PLUGGED INTO RED OUTLET. B/S BILATERALLY RHONCHI EQUAL CHEST RISE NOTED.SX MODERATE THICK YELLOW SECRETIONS. NO RESPIRATORY DISTRESS NOTED T/O SHIFT, WILL CONTINUE TO MONITOR. REPORT WILL BE GIVEN TO PM SHIFT. Addendum: 09/13/17 at 1654 by LIZBETH PIMENTEL RT Amended: Links added.
[2017-09-13 20:04] VITALS: BP 101/56
[2017-09-13] MEDS: MULTIVIT, IRON, MIN NO. 8, FA 1 TAB GT SCH (20:09)
[2017-09-13] MEDS: LANOLIN/MIN OIL/PETROLAT,WHT 3.5 GM TUBE EACHEYE SCH (22:00)
[2017-09-13] MEDS: SENNOSIDES 8.6 MG TABLET GT SCH (22:00)
[2017-09-14] MEDS: BACLOFEN (10 MG) 10 MG TABLET GT SCH ×2 (05:13→18:30)
[2017-09-14] MEDS: OMEPRAZOLE 10 MG CAPSULE.DR GT SCH (05:13)
--- NOTE | 2017-09-14 05:52 | NUR ---
RT PT RECEIVED ON [facility] VENT WITH NOTED SETTING. VENT TO RED OUTLET. ALARMS SET AND AUDIBLE. AMBU BAG AT [facility]. NECKTIE OPERATOR POCKETS AND PIECES DONE. TRACH PATENT AND SECURE. PT TOLERATING SETTING WELL. NO SOB OR RESP DISTRESS NOTED ON SHIFT. Addendum: 09/14/17 at 0552 by SUJEY EDWARD RT Amended: Links added.
[2017-09-14 06:42] LABS: CALCIUM, SERUM 9.9 mg/dL (8.5-10.1); CREATININE 0.5 mg/dL (0.6-1.3); PHOSPHORUS 3.4 mg/dL (2.5-4.9); POTASSIUM 3.5 mmol/L (3.5-5.1)
[2017-09-14 06:46] LABS: BASOPHILS % (AUTO) 0.3 % (0.0-2.0); EOSINOPHILS % (AUTO) 2.9 % (0.0-6.0); HEMATOCRIT 29 % (33-45); HEMOGLOBIN 9.4 g/dL (11.5-14.8); LYMPHOCYTES # (AUTO) 2.3 /CMM (0.8-4.8); LYMPHOCYTES % (AUTO) 27.5 % (20.0-44.0); MEAN CORPUSCULAR HEMOGLOBIN 25 PG (26.0-33.0); MEAN CORPUSCULAR HGB CONC 32 g/dl (31.0-36.0); MEAN CORPUSCULAR VOLUME 78 fL (82-100); MONOCYTES # (AUTO) 0.6 /CMM (0.1-1.30); NEUTROPHILS # (AUTO) 5.2 /CMM (1.8-8.9); NEUTROPHILS % (AUTO) 62.3 % (43.0-81.0); PLATELET COUNT (AUTO) 218 /CMM (150-450); RDW COEFFICIENT OF VARIATION 20.6 (11.5-15.0); RED BLOOD CELL COUNT(AUTO) 3.76 MIL/uL (4.0-5.2); WHITE BLOOD COUNT (AUTO) 8.4 K/uL (4.3-11.0)
[2017-09-14] MEDS: IPRATROPIUM NEB FS 0.5 MG/2.5 ML AMPUL.NEB IH SCH ×2 (07:20→19:30)
[2017-09-14 07:50] VITALS: BP 100/78
[2017-09-14] MEDS: CELLUVISC EACHEYE SCH ×4 (08:30→20:07)
[2017-09-14] MEDS: LACTULOSE 20 G/30 ML UDC GT SCH (08:31)
[2017-09-14] MEDS: KCL 20 MEQ/15 ML GT SCH (08:32)
[2017-09-14] MEDS: FERROUS SULFATE - FOR SA ONLY 330 MG/7.5 ML UDC GT SCH ×2 (08:32→16:57)
[2017-09-14] MEDS: FUROSEMIDE SOLN 40 MG/5 ML UDC GT SCH (08:34)
[2017-09-14] MEDS: MIDODRINE HCL (5MG) 5 MG TABLET GT SCH ×2 (08:35→20:08)
[2017-09-14] MEDS: PROSTAT (PYXIS) 30 ML UDC GT SCH ×2 (08:36→16:57)
[2017-09-14] MEDS: HYDROGEN PEROXIDE 480 ML BOTTLE TP SCH ×2 (09:30→20:08)
[2017-09-14] MEDS: Z GUARD REMEDY 4 OZ OINT TP SCH ×2 (09:30→20:09)
[2017-09-14] MEDS: NYSTATIN TOP POWDER 15 GM BOTTLE TP SCH ×2 (09:35→20:09)
--- NOTE | 2017-09-14 10:00 | NUR ---
Seen by Dr. Macario. Notified him pt had an episode of SOB last night as endorsed by night charge nurse. Dr. Macario said to continue pt on AC mode.
[2017-09-14] MEDS: MULTIVIT, IRON, MIN NO. 8, FA 1 TAB GT SCH (20:08)
[2017-09-14 20:12] VITALS: BP 92/62
[2017-09-14] MEDS: LANOLIN/MIN OIL/PETROLAT,WHT 3.5 GM TUBE EACHEYE SCH (21:59)
[2017-09-14] MEDS: SENNOSIDES 8.6 MG TABLET GT SCH (21:59)
[2017-09-15] MEDS: GLYTROL 1,000 ML BAG GT PRN (01:17)
--- NOTE | 2017-09-15 02:33 | NUR ---
pt received on vent via trach with charted settings. alarms set and audible. vent plugged in to red outlet. disconnect alarms checked. ambu bag at bedside. tolerating vent settings at this time Addendum: 09/15/17 at 0233 by MELISA GARCIA RT Amended: Links added.
[2017-09-15] MEDS: BACLOFEN (10 MG) 10 MG TABLET GT SCH ×2 (05:04→17:28)
[2017-09-15] MEDS: OMEPRAZOLE 10 MG CAPSULE.DR GT SCH (05:04)
[2017-09-15] MEDS: IPRATROPIUM NEB FS 0.5 MG/2.5 ML AMPUL.NEB IH SCH ×2 (07:45→20:17)
[2017-09-15 08:12] VITALS: BP 117/74
[2017-09-15] MEDS: CELLUVISC EACHEYE SCH ×4 (08:16→20:14)
[2017-09-15] MEDS: LACTULOSE 20 G/30 ML UDC GT SCH (08:16)
[2017-09-15] MEDS: FERROUS SULFATE - FOR SA ONLY 330 MG/7.5 ML UDC GT SCH ×2 (08:16→16:36)
[2017-09-15] MEDS: KCL 20 MEQ/15 ML GT SCH (08:16)
[2017-09-15] MEDS: FUROSEMIDE SOLN 40 MG/5 ML UDC GT SCH (08:16)
[2017-09-15] MEDS: PROSTAT (PYXIS) 30 ML UDC GT SCH ×2 (08:17→16:36)
[2017-09-15] MEDS: MIDODRINE HCL (5MG) 5 MG TABLET GT SCH ×2 (08:17→20:15)
[2017-09-15] MEDS: HYDROGEN PEROXIDE 480 ML BOTTLE TP SCH ×2 (09:00→20:15)
[2017-09-15] MEDS: NYSTATIN TOP POWDER 15 GM BOTTLE TP SCH ×2 (09:00→20:15)
[2017-09-15] MEDS: Z GUARD REMEDY 4 OZ OINT TP SCH ×2 (09:00→20:15)
--- NOTE | 2017-09-15 17:50 | NUR ---
RT RECD PT TRACHED INTACT AND SECURED alarms set and audible. vent plugged in to red outlet ambu bag at bedside. tolerating vent settings at this time
[2017-09-15 20:14] VITALS: BP 110/69
[2017-09-15] MEDS: MULTIVIT, IRON, MIN NO. 8, FA 1 TAB GT SCH (20:15)
[2017-09-15] MEDS: LANOLIN/MIN OIL/PETROLAT,WHT 3.5 GM TUBE EACHEYE SCH (22:09)
[2017-09-15] MEDS: SENNOSIDES 8.6 MG TABLET GT SCH (22:09)
[2017-09-16] MEDS: GLYTROL 1,000 ML BAG GT PRN (03:21)
--- NOTE | 2017-09-16 04:21 | NUR ---
PT REC'D TRACHED ON [facility] VENT SETTINGS CHARTED. NO RESP DISTRESS THROUGHOUT SHIFT. SX'D THICK MODERATE YELLOW SECRETIONS. TRACH MIDLINE AND PATENT. VENT PLUGGED INTO RED OUTLET. ALARMS ARE SET AND AUDIBLE. AMBU BAG BEDSIDE. WILL CONTINUE TO MONITOR Addendum: 09/16/17 at 0426 by CHIRAG MENDEZ RT Amended: Links added.
[2017-09-16] MEDS: BACLOFEN (10 MG) 10 MG TABLET GT SCH ×2 (05:00→17:21)
[2017-09-16] MEDS: OMEPRAZOLE 10 MG CAPSULE.DR GT SCH (05:00)
[2017-09-16] MEDS: IPRATROPIUM NEB FS 0.5 MG/2.5 ML AMPUL.NEB IH SCH ×2 (07:21→19:59)
[2017-09-16 07:56] VITALS: BP 128/88
[2017-09-16] MEDS: MIDODRINE HCL (5MG) 5 MG TABLET GT SCH ×2 (09:00→20:21)
[2017-09-16] MEDS: HYDROGEN PEROXIDE 480 ML BOTTLE TP SCH ×2 (09:57→20:22)
[2017-09-16] MEDS: NYSTATIN TOP POWDER 15 GM BOTTLE TP SCH ×2 (09:57→20:22)
[2017-09-16] MEDS: LACTULOSE 20 G/30 ML UDC GT SCH (09:57)
[2017-09-16] MEDS: PROSTAT (PYXIS) 30 ML UDC GT SCH ×2 (09:57→17:21)
[2017-09-16] MEDS: CELLUVISC EACHEYE SCH ×2 (09:57→13:28)
[2017-09-16] MEDS: FERROUS SULFATE - FOR SA ONLY 330 MG/7.5 ML UDC GT SCH ×2 (09:57→17:21)
[2017-09-16] MEDS: FUROSEMIDE SOLN 40 MG/5 ML UDC GT SCH (09:57)
[2017-09-16] MEDS: KCL 20 MEQ/15 ML GT SCH (09:57)
[2017-09-16] MEDS: Z GUARD REMEDY 4 OZ OINT TP SCH ×2 (09:58→20:22)
--- NOTE | 2017-09-16 10:40 | NUR ---
Sw was informed by the charge nurse that resident's mother Sabrina stated that she will attend IDT meeting tomorrow between 12:30-1:30PM.
--- NOTE | 2017-09-16 16:59 | NUR ---
Dr. Gómez ordered to DC Celluvisc eye drops and to give artificial tears 1 drop to each eye QID for eye dryness. No redness noted in pt's eyes. Notified pt's mother.
[2017-09-16] MEDS: MULTIVIT, IRON, MIN NO. 8, FA 1 TAB GT SCH (20:21)
[2017-09-16] MEDS: POLYVINYL ALCOHOL 15 ML BOTTLE OP SCH (20:22)
[2017-09-16 21:19] VITALS: BP 100/64
[2017-09-16] MEDS: LANOLIN/MIN OIL/PETROLAT,WHT 3.5 GM TUBE EACHEYE SCH (22:32)
[2017-09-16] MEDS: SENNOSIDES 8.6 MG TABLET GT SCH (22:32)
[2017-09-17] MEDS: LORAZEPAM INJ 2 MG/ML VIAL IVP PRN (02:06)
--- NOTE | 2017-09-17 02:07 | NUR ---
PATIENT WITH EPISODES OF INCREASED HR 170'S,RR 40'S,WOB OF BREATHING,SUCTIONED WITH THICK YELLOW SECRETIONS.O2 SATS 96%.REPOSITIONED AND KEPT COMFORTABLE,NOT EFFECTIVE.ATIVAN 0.5MG GIVEN IV ASA ORDERED WILL CONTINUE TO MONITOR.
--- NOTE | 2017-09-17 03:15 | NUR ---
PT SLEEPING AND CALM.
[2017-09-17] MEDS: BACLOFEN (10 MG) 10 MG TABLET GT SCH ×2 (05:28→17:55)
[2017-09-17] MEDS: OMEPRAZOLE 10 MG CAPSULE.DR GT SCH (05:28)
[2017-09-17 07:21] VITALS: BP 89/68
[2017-09-17] MEDS: LACTULOSE 20 G/30 ML UDC GT SCH (08:23)
[2017-09-17] MEDS: MIDODRINE HCL (5MG) 5 MG TABLET GT SCH ×2 (08:23→21:11)
[2017-09-17] MEDS: KCL 20 MEQ/15 ML GT SCH (08:23)
[2017-09-17] MEDS: POLYVINYL ALCOHOL 15 ML BOTTLE OP SCH ×4 (08:23→21:11)
[2017-09-17] MEDS: FUROSEMIDE SOLN 40 MG/5 ML UDC GT SCH (08:23)
[2017-09-17] MEDS: PROSTAT (PYXIS) 30 ML UDC GT SCH ×2 (08:23→17:55)
[2017-09-17] MEDS: FERROUS SULFATE - FOR SA ONLY 330 MG/7.5 ML UDC GT SCH ×2 (08:23→17:55)
[2017-09-17] MEDS: HYDROGEN PEROXIDE 480 ML BOTTLE TP SCH ×2 (08:24→21:11)
[2017-09-17] MEDS: Z GUARD REMEDY 4 OZ OINT TP SCH ×2 (08:25→21:12)
[2017-09-17] MEDS: NYSTATIN TOP POWDER 15 GM BOTTLE TP SCH ×2 (08:25→21:12)
[2017-09-17 09:00] VITALS: BP 95/65
[2017-09-17] MEDS: LACTULOSE 10 G/15 ML UDC (PYXIS) GT PRN (12:17)
--- NOTE | 2017-09-17 14:36 | NUR ---
Resident's mother Sabrina attended the IDT meeting (please see charge nurses note for new orders). Resident's mother had questions pertaining to the trach and her weight to which Dr. Macario explained that trach would have to stay in indefinitely unless her mental status improves. Dr. 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 Dr. Macario also noted that resident's weight is fluid weight but that due to her low blood pressure, diuretics are not recommended. Mother had a hard time acknowledging resident's vegetative state and stated that she will continue praying.
--- NOTE | 2017-09-17 17:10 | NUR ---
During IDT, MD Macario ordered LE venous Doppler study due to recurrent episode of redness in the lower extremities and chest Xray due to thick yellow secretions. Result of Chest Xray reported to Dr. Macario, NNO given at this time, but the Doppler has not been done yet.
[2017-09-17] MEDS: IPRATROPIUM NEB FS 0.5 MG/2.5 ML AMPUL.NEB IH SCH (20:30)
[2017-09-17] MEDS: MULTIVIT, IRON, MIN NO. 8, FA 1 TAB GT SCH (21:11)
[2017-09-17] MEDS: LANOLIN/MIN OIL/PETROLAT,WHT 3.5 GM TUBE EACHEYE SCH (21:12)
[2017-09-17] MEDS: SENNOSIDES 8.6 MG TABLET GT SCH (21:12)
[2017-09-17 21:22] VITALS: BP 95/61
[2017-09-17] MEDS: SIMETHICONE SUSP 40 MG/0.6 ML BOTTLE GT SCH (21:42)
[2017-09-18] MEDS: OMEPRAZOLE 10 MG CAPSULE.DR GT SCH (05:10)
[2017-09-18] MEDS: BACLOFEN (10 MG) 10 MG TABLET GT SCH ×2 (05:10→17:46)
[2017-09-18] MEDS: GLYTROL 1,000 ML BAG GT PRN (05:11)
--- NOTE | 2017-09-18 06:51 | NUR ---
Patient duplex venous lower extremity (right ) is positive for DVT. made aware awaiting for orders.Will endorse to AM nurse to follow up.Patient comfortable ,no distress noted.Vitals within normal.Will continue to monitor.
[2017-09-18] MEDS: IPRATROPIUM NEB FS 0.5 MG/2.5 ML AMPUL.NEB IH SCH ×2 (07:52→20:07)
--- NOTE | 2017-09-18 07:55 | NUR ---
Received an order from Dr. Macario regarding positive venous duplex of the R lower extremity. New order to start patient with Xarelto 15mg. Q 12 hours x 21 days, then Xarelto 20mg daily. H & H to be monitored twice a week starting next week on Wed and . MD to be called for Hbg less than 7.5. SCD pump discontinued. Resident's mother Sabrina notified of findings and interventions ordered by .
[2017-09-18] MEDS: LACTULOSE 20 G/30 ML UDC GT SCH (08:45)
[2017-09-18] MEDS: FERROUS SULFATE - FOR SA ONLY 330 MG/7.5 ML UDC GT SCH ×2 (08:45→16:41)
[2017-09-18] MEDS: NYSTATIN TOP POWDER 15 GM BOTTLE TP SCH ×2 (08:45→21:01)
[2017-09-18] MEDS: HYDROGEN PEROXIDE 480 ML BOTTLE TP SCH ×2 (08:45→21:01)
[2017-09-18] MEDS: MIDODRINE HCL (5MG) 5 MG TABLET GT SCH ×2 (08:45→21:01)
[2017-09-18] MEDS: PROSTAT (PYXIS) 30 ML UDC GT SCH ×2 (08:45→16:41)
[2017-09-18] MEDS: FUROSEMIDE SOLN 40 MG/5 ML UDC GT SCH (08:45)
[2017-09-18] MEDS: KCL 20 MEQ/15 ML GT SCH (08:45)
[2017-09-18] MEDS: Z GUARD REMEDY 4 OZ OINT TP SCH ×2 (08:45→21:01)
[2017-09-18] MEDS: POLYVINYL ALCOHOL 15 ML BOTTLE OP SCH ×4 (08:45→21:01)
[2017-09-18] MEDS: SIMETHICONE SUSP 40 MG/0.6 ML BOTTLE GT SCH ×2 (09:00→21:00)
[2017-09-18] MEDS: RIVAROXABAN 15 MG TABLET GT SCH ×2 (10:05→21:03)
--- NOTE | 2017-09-18 12:26 | NUR ---
Dr.Sora Dugan notified that patient with positive venous duoppler in the R LE and that Dr. Macario addressed it by giving an order for Xarelto and monitor her H & H. Appreciated the info given.
[2017-09-18 14:24] VITALS: BP 116/66
--- NOTE | 2017-09-18 16:16 | NUR ---
RT PT REC'D TRACHED ON [facility] VENT SETTINGS CHARTED. NO RESP DISTRESS THROUGHOUT SHIFT. SX'D THICK MODERATE YELLOW SECRETIONS. TRACH MIDLINE AND PATENT. VENT PLUGGED INTO RED OUTLET. ALARMS ARE SET AND AUDIBLE. AMBU BAG BEDSIDE. WILL CONTINUE TO MONITOR
[2017-09-18] MEDS: MULTIVIT, IRON, MIN NO. 8, FA 1 TAB GT SCH (21:01)
[2017-09-18] MEDS: LANOLIN/MIN OIL/PETROLAT,WHT 3.5 GM TUBE EACHEYE SCH (21:02)
[2017-09-18] MEDS: SENNOSIDES 8.6 MG TABLET GT SCH (21:02)
[2017-09-18 21:42] VITALS: BP 95/55
[2017-09-19] MEDS: LORAZEPAM 0.5 MG TABLET GT PRN (01:49)
--- NOTE | 2017-09-19 02:00 | NUR ---
Patient awake with heart rate ranging from 130 to 140 and respiration rate in the 30s. Pt is clean and dry. Repositioned for comfort and Ativan 0.5 mg via GT given for anxiety and respiratory distress. Will continue to monitor.
--- NOTE | 2017-09-19 03:00 | NUR ---
PRN Ativan effective. Pt calm and asleep.
[2017-09-19] MEDS: OMEPRAZOLE 10 MG CAPSULE.DR GT SCH (05:00)
[2017-09-19] MEDS: BACLOFEN (10 MG) 10 MG TABLET GT SCH ×2 (05:00→17:45)
[2017-09-19] MEDS: GLYTROL 1,000 ML BAG GT PRN (05:01)
[2017-09-19 07:38] VITALS: BP 103/76
[2017-09-19] MEDS: IPRATROPIUM NEB FS 0.5 MG/2.5 ML AMPUL.NEB IH SCH ×2 (07:45→20:34)
--- NOTE | 2017-09-19 07:47 | NUR ---
Female trach pt received on mechanical vent. PT trach is secure. Vent is plugged into a red outlet, alarms are set and audible, and BVM is at bedside. Addendum: 09/19/17 at 0747 by NADINE RIOS RT Amended: Links added.
[2017-09-19 07:52] LABS: BASOPHILS % (AUTO) 0.5 % (0.0-2.0); HEMATOCRIT 29 % (33-45); HEMOGLOBIN 9.4 g/dL (11.5-14.8); LYMPHOCYTES # (AUTO) 2.1 /CMM (0.8-4.8); MEAN CORPUSCULAR HEMOGLOBIN 25 PG (26.0-33.0); MEAN CORPUSCULAR HGB CONC 33 g/dl (31.0-36.0); MEAN CORPUSCULAR VOLUME 78 fL (82-100); MONOCYTES # (AUTO) 0.4 /CMM (0.1-1.30); MONOCYTES % (AUTO) 7.5 % (2.0-12.0); NEUTROPHILS # (AUTO) 2.7 /CMM (1.8-8.9); PLATELET COUNT (AUTO) 235 /CMM (150-450); RDW COEFFICIENT OF VARIATION 19.3 (11.5-15.0); RED BLOOD CELL COUNT(AUTO) 3.71 MIL/uL (4.0-5.2); WHITE BLOOD COUNT (AUTO) 5.5 K/uL (4.3-11.0)
[2017-09-19] MEDS: POLYVINYL ALCOHOL 15 ML BOTTLE OP SCH ×4 (09:00→20:29)
[2017-09-19] MEDS: HYDROGEN PEROXIDE 480 ML BOTTLE TP SCH ×2 (09:00→20:29)
[2017-09-19] MEDS: MIDODRINE HCL (5MG) 5 MG TABLET GT SCH ×2 (09:00→20:27)
[2017-09-19] MEDS: NYSTATIN TOP POWDER 15 GM BOTTLE TP SCH ×2 (09:00→20:30)
[2017-09-19] MEDS: SIMETHICONE SUSP 40 MG/0.6 ML BOTTLE GT SCH ×2 (09:00→20:26)
[2017-09-19] MEDS: KCL 20 MEQ/15 ML GT SCH (09:00)
[2017-09-19] MEDS: LACTULOSE 20 G/30 ML UDC GT SCH (09:00)
[2017-09-19] MEDS: FUROSEMIDE SOLN 40 MG/5 ML UDC GT SCH (09:00)
[2017-09-19] MEDS: FERROUS SULFATE - FOR SA ONLY 330 MG/7.5 ML UDC GT SCH ×2 (09:00→16:26)
[2017-09-19] MEDS: PROSTAT (PYXIS) 30 ML UDC GT SCH ×2 (09:00→16:26)
[2017-09-19] MEDS: RIVAROXABAN 15 MG TABLET GT SCH ×2 (09:00→20:29)
[2017-09-19] MEDS: Z GUARD REMEDY 4 OZ OINT TP SCH ×2 (09:00→20:34)
--- NOTE | 2017-09-19 11:00 | NUR ---
Paged to inform CBC result,waiting for the call back.
[2017-09-19 20:00] VITALS: BP 118/59
[2017-09-19] MEDS: MULTIVIT, IRON, MIN NO. 8, FA 1 TAB GT SCH (20:27)
--- NOTE | 2017-09-19 20:35 | NUR ---
RT NOTE PATIENT RECEIVED IN STABLE CONDITION ON CURRENT ORDERED VENT SETTINGS. NO SIGNS OF RESPIRATORY DISTRESS NOTED. TRACH IS PATENT AND SECURE. ALARMS ARE SET AND AUDIBLE. VENT IS PLUGGED INTO RED OUTLET. EMERGENCY EQUIPMENT AT PATIENT BEDSIDE. WILL CONTINUE TO MONITOR. Addendum: 09/20/17 at 0308 by NANI PALMA RT Amended: Links added.
[2017-09-19] MEDS: LANOLIN/MIN OIL/PETROLAT,WHT 3.5 GM TUBE EACHEYE SCH (22:19)
[2017-09-19] MEDS: SENNOSIDES 8.6 MG TABLET GT SCH (22:43)
[2017-09-20] MEDS: GLYTROL 1,000 ML BAG GT PRN (03:32)
[2017-09-20] MEDS: OMEPRAZOLE 10 MG CAPSULE.DR GT SCH (05:11)
[2017-09-20] MEDS: BACLOFEN (10 MG) 10 MG TABLET GT SCH ×2 (05:11→17:05)
[2017-09-20] MEDS: IPRATROPIUM NEB FS 0.5 MG/2.5 ML AMPUL.NEB IH SCH ×2 (07:18→19:41)
[2017-09-20 07:43] VITALS: BP 100/60
[2017-09-20] MEDS: LACTULOSE 20 G/30 ML UDC GT SCH (08:08)
[2017-09-20] MEDS: FERROUS SULFATE - FOR SA ONLY 330 MG/7.5 ML UDC GT SCH ×2 (08:08→17:04)
[2017-09-20] MEDS: MIDODRINE HCL (5MG) 5 MG TABLET GT SCH ×2 (08:09→21:14)
[2017-09-20] MEDS: SIMETHICONE SUSP 40 MG/0.6 ML BOTTLE GT SCH ×2 (08:09→21:13)
[2017-09-20] MEDS: FUROSEMIDE SOLN 40 MG/5 ML UDC GT SCH (08:09)
[2017-09-20] MEDS: KCL 20 MEQ/15 ML GT SCH (08:09)
[2017-09-20] MEDS: POLYVINYL ALCOHOL 15 ML BOTTLE OP SCH ×4 (08:09→21:14)
[2017-09-20] MEDS: PROSTAT (PYXIS) 30 ML UDC GT SCH ×2 (08:09→17:04)
[2017-09-20] MEDS: RIVAROXABAN 15 MG TABLET GT SCH ×2 (08:09→21:14)
[2017-09-20 08:29] LABS: BASOPHILS % (AUTO) 0.4 % (0.0-2.0); EOSINOPHILS % (AUTO) 3.9 % (0.0-6.0); HEMATOCRIT 27 % (33-45); HEMOGLOBIN 8.8 g/dL (11.5-14.8); MEAN CORPUSCULAR HEMOGLOBIN 26 PG (26.0-33.0); MEAN CORPUSCULAR HGB CONC 33 g/dl (31.0-36.0); MEAN CORPUSCULAR VOLUME 78 fL (82-100); MONOCYTES # (AUTO) 0.8 /CMM (0.1-1.30); MONOCYTES % (AUTO) 8.7 % (2.0-12.0); NEUTROPHILS # (AUTO) 4.9 /CMM (1.8-8.9); PLATELET COUNT (AUTO) 248 /CMM (150-450); RDW COEFFICIENT OF VARIATION 19.4 (11.5-15.0); RED BLOOD CELL COUNT(AUTO) 3.44 MIL/uL (4.0-5.2); WHITE BLOOD COUNT (AUTO) 9.1 K/uL (4.3-11.0)
--- NOTE | 2017-09-20 09:50 | NUR ---
Notified Dr. Macario of pt's Hgb 8.8. No bleeding noted since pt has been on Xarelto. No new order.
[2017-09-20] MEDS: NYSTATIN TOP POWDER 15 GM BOTTLE TP SCH ×2 (10:30→21:15)
[2017-09-20] MEDS: Z GUARD REMEDY 4 OZ OINT TP SCH ×2 (10:30→21:15)
[2017-09-20] MEDS: HYDROGEN PEROXIDE 480 ML BOTTLE TP SCH ×2 (10:30→21:15)
[2017-09-20 20:07] VITALS: BP 96/68
[2017-09-20] MEDS: MULTIVIT, IRON, MIN NO. 8, FA 1 TAB GT SCH (21:14)
[2017-09-20] MEDS: SENNOSIDES 8.6 MG TABLET GT SCH (21:15)
[2017-09-20] MEDS: LANOLIN/MIN OIL/PETROLAT,WHT 3.5 GM TUBE EACHEYE SCH (21:15)
[2017-09-21] MEDS: LORAZEPAM 0.5 MG TABLET GT PRN (03:48)
[2017-09-21] MEDS: OMEPRAZOLE 10 MG CAPSULE.DR GT SCH (05:33)
[2017-09-21] MEDS: BACLOFEN (10 MG) 10 MG TABLET GT SCH ×2 (05:33→17:42)
[2017-09-21] MEDS: GLYTROL 1,000 ML BAG GT PRN (05:33)
[2017-09-21 07:40] VITALS: BP 103/50
[2017-09-21] MEDS: IPRATROPIUM NEB FS 0.5 MG/2.5 ML AMPUL.NEB IH SCH ×2 (08:22→19:29)
[2017-09-21] MEDS: KCL 20 MEQ/15 ML GT SCH (08:55)
[2017-09-21] MEDS: LACTULOSE 20 G/30 ML UDC GT SCH (08:55)
[2017-09-21] MEDS: FERROUS SULFATE - FOR SA ONLY 330 MG/7.5 ML UDC GT SCH ×2 (08:55→16:21)
[2017-09-21] MEDS: FUROSEMIDE SOLN 40 MG/5 ML UDC GT SCH (08:56)
[2017-09-21] MEDS: SIMETHICONE SUSP 40 MG/0.6 ML BOTTLE GT SCH ×2 (08:57→21:43)
[2017-09-21] MEDS: MIDODRINE HCL (5MG) 5 MG TABLET GT SCH ×2 (08:58→21:43)
[2017-09-21] MEDS: PROSTAT (PYXIS) 30 ML UDC GT SCH ×2 (08:59→16:21)
[2017-09-21] MEDS: POLYVINYL ALCOHOL 15 ML BOTTLE OP SCH ×4 (08:59→21:43)
[2017-09-21] MEDS: RIVAROXABAN 15 MG TABLET GT SCH ×2 (08:59→21:43)
[2017-09-21] MEDS: HYDROGEN PEROXIDE 480 ML BOTTLE TP SCH ×2 (10:00→21:43)
[2017-09-21] MEDS: NYSTATIN TOP POWDER 15 GM BOTTLE TP SCH ×2 (10:00→21:44)
[2017-09-21] MEDS: Z GUARD REMEDY 4 OZ OINT TP SCH ×2 (10:00→21:44)
[2017-09-21 19:53] VITALS: BP 101/59
[2017-09-21] MEDS: MULTIVIT, IRON, MIN NO. 8, FA 1 TAB GT SCH (21:43)
[2017-09-21] MEDS: LANOLIN/MIN OIL/PETROLAT,WHT 3.5 GM TUBE EACHEYE SCH (21:44)
[2017-09-21] MEDS: SENNOSIDES 8.6 MG TABLET GT SCH (21:44)
[2017-09-22] MEDS: BACLOFEN (10 MG) 10 MG TABLET GT SCH ×2 (05:34→17:47)
[2017-09-22] MEDS: OMEPRAZOLE 10 MG CAPSULE.DR GT SCH (05:34)
[2017-09-22 07:48] VITALS: BP 93/47
[2017-09-22] MEDS: IPRATROPIUM NEB FS 0.5 MG/2.5 ML AMPUL.NEB IH SCH ×2 (07:50→19:47)
[2017-09-22] MEDS: SIMETHICONE SUSP 40 MG/0.6 ML BOTTLE GT SCH ×2 (09:03→20:56)
[2017-09-22] MEDS: KCL 20 MEQ/15 ML GT SCH (09:03)
[2017-09-22] MEDS: LACTULOSE 20 G/30 ML UDC GT SCH (09:03)
[2017-09-22] MEDS: FERROUS SULFATE - FOR SA ONLY 330 MG/7.5 ML UDC GT SCH ×2 (09:03→17:47)
[2017-09-22] MEDS: FUROSEMIDE SOLN 40 MG/5 ML UDC GT SCH (09:03)
[2017-09-22] MEDS: Z GUARD REMEDY 4 OZ OINT TP SCH ×2 (09:04→20:57)
[2017-09-22] MEDS: PROSTAT (PYXIS) 30 ML UDC GT SCH ×2 (09:04→17:47)
[2017-09-22] MEDS: HYDROGEN PEROXIDE 480 ML BOTTLE TP SCH ×2 (09:04→20:56)
[2017-09-22] MEDS: MIDODRINE HCL (5MG) 5 MG TABLET GT SCH ×2 (09:04→20:56)
[2017-09-22] MEDS: NYSTATIN TOP POWDER 15 GM BOTTLE TP SCH ×2 (09:04→20:56)
[2017-09-22] MEDS: RIVAROXABAN 15 MG TABLET GT SCH ×2 (09:04→20:56)
[2017-09-22] MEDS: POLYVINYL ALCOHOL 15 ML BOTTLE OP SCH ×4 (09:04→20:56)
--- NOTE | 2017-09-22 12:04 | NUR ---
RT RECD PT TRACHED INTACT AND SECURED alarms ON and audible. vent plugged in to red outlet BAG & MASKAT HOB. tolerating ORDERED vent settings ATT. TX GIVEN TOLD WELL NO ADVERSE REACTION NOTED ATT WILL CONTINUE TO MONITOR PT TRACH CHANGE DONE ROUTINELY ORDERED BILATERAL CHEST RISE MINIMAL BLEEDING WILL CONTINUE TO MONITOR
[2017-09-22] MEDS: MULTIVIT, IRON, MIN NO. 8, FA 1 TAB GT SCH (20:56)
[2017-09-22] MEDS: LANOLIN/MIN OIL/PETROLAT,WHT 3.5 GM TUBE EACHEYE SCH (21:01)
[2017-09-22] MEDS: SENNOSIDES 8.6 MG TABLET GT SCH (21:02)
[2017-09-22 21:22] VITALS: BP 109/69
[2017-09-23] MEDS: BACLOFEN (10 MG) 10 MG TABLET GT SCH ×2 (06:03→18:03)
[2017-09-23] MEDS: OMEPRAZOLE 10 MG CAPSULE.DR GT SCH (06:03)
[2017-09-23 07:33] VITALS: BP 122/52
[2017-09-23] MEDS: IPRATROPIUM NEB FS 0.5 MG/2.5 ML AMPUL.NEB IH SCH ×2 (07:35→19:35)
[2017-09-23] MEDS: GLUCERNA 1.2 1,000 ML BOTTLE GT PRN (08:05)
[2017-09-23] MEDS: SIMETHICONE SUSP 40 MG/0.6 ML BOTTLE GT SCH ×2 (08:15→21:00)
[2017-09-23] MEDS: LACTULOSE 20 G/30 ML UDC GT SCH (08:15)
[2017-09-23] MEDS: FERROUS SULFATE - FOR SA ONLY 330 MG/7.5 ML UDC GT SCH ×2 (08:15→17:00)
[2017-09-23] MEDS: KCL 20 MEQ/15 ML GT SCH (08:15)
[2017-09-23] MEDS: FUROSEMIDE SOLN 40 MG/5 ML UDC GT SCH (08:15)
[2017-09-23 08:25] LABS: BASOPHILS % (AUTO) 0.5 % (0.0-2.0); EOSINOPHILS % (AUTO) 6.5 % (0.0-6.0); HEMATOCRIT 26 % (33-45); HEMOGLOBIN 8.7 g/dL (11.5-14.8); LYMPHOCYTES # (AUTO) 2.8 /CMM (0.8-4.8); LYMPHOCYTES % (AUTO) 37.8 % (20.0-44.0); MEAN CORPUSCULAR HEMOGLOBIN 26 PG (26.0-33.0); MEAN CORPUSCULAR HGB CONC 34 g/dl (31.0-36.0); MEAN CORPUSCULAR VOLUME 78 fL (82-100); MONOCYTES # (AUTO) 0.7 /CMM (0.1-1.30); MONOCYTES % (AUTO) 9.5 % (2.0-12.0); NEUTROPHILS # (AUTO) 3.5 /CMM (1.8-8.9); NEUTROPHILS % (AUTO) 45.7 % (43.0-81.0); PLATELET COUNT (AUTO) 273 /CMM (150-450); RDW COEFFICIENT OF VARIATION 19.1 (11.5-15.0); RED BLOOD CELL COUNT(AUTO) 3.34 MIL/uL (4.0-5.2); WHITE BLOOD COUNT (AUTO) 7.5 K/uL (4.3-11.0)
[2017-09-23] MEDS: HYDROGEN PEROXIDE 480 ML BOTTLE TP SCH ×2 (09:00→21:00)
[2017-09-23] MEDS: MIDODRINE HCL (5MG) 5 MG TABLET GT SCH ×2 (09:00→21:00)
[2017-09-23] MEDS: NYSTATIN TOP POWDER 15 GM BOTTLE TP SCH ×2 (09:00→21:00)
[2017-09-23] MEDS: PROSTAT (PYXIS) 30 ML UDC GT SCH ×2 (09:00→17:00)
[2017-09-23] MEDS: RIVAROXABAN 15 MG TABLET GT SCH ×2 (09:00→21:00)
[2017-09-23] MEDS: POLYVINYL ALCOHOL 15 ML BOTTLE OP SCH ×4 (09:00→21:00)
[2017-09-23] MEDS: Z GUARD REMEDY 4 OZ OINT TP SCH ×2 (09:00→21:00)
[2017-09-23] MEDS: LACTULOSE 10 G/15 ML UDC (PYXIS) GT PRN (19:30)
[2017-09-23] MEDS: MULTIVIT, IRON, MIN NO. 8, FA 1 TAB GT SCH (21:00)
[2017-09-23 22:02] VITALS: BP 98/66
[2017-09-23] MEDS: LANOLIN/MIN OIL/PETROLAT,WHT 3.5 GM TUBE EACHEYE SCH (22:54)
[2017-09-23] MEDS: SENNOSIDES 8.6 MG TABLET GT SCH (22:54)
[2017-09-24] MEDS: BISACODYL SUPP (10 MG) 10 MG/SUPP.RECT SUPP.RECT RC PRN (00:44)
--- NOTE | 2017-09-24 03:49 | NUR ---
RT Pt trach remains on [facility] vent ordered settings. pt resp status stable. svn treatment given inline. sx prn. Addendum: 09/24/17 at 0350 by SAE MERAZ RT Amended: Links added.
[2017-09-24] MEDS: GLUCERNA 1.2 1,000 ML BOTTLE GT PRN (04:27)
[2017-09-24] MEDS: BACLOFEN (10 MG) 10 MG TABLET GT SCH ×2 (05:39→17:01)
[2017-09-24] MEDS: OMEPRAZOLE 10 MG CAPSULE.DR GT SCH (05:39)
[2017-09-24] MEDS: IPRATROPIUM NEB FS 0.5 MG/2.5 ML AMPUL.NEB IH SCH ×2 (07:30→19:46)
[2017-09-24 08:07] VITALS: BP 101/70
[2017-09-24] MEDS: HYDROGEN PEROXIDE 480 ML BOTTLE TP SCH ×2 (09:12→21:20)
[2017-09-24] MEDS: Z GUARD REMEDY 4 OZ OINT TP SCH ×2 (09:12→21:21)
[2017-09-24] MEDS: NYSTATIN TOP POWDER 15 GM BOTTLE TP SCH ×2 (09:12→21:21)
[2017-09-24] MEDS: POLYVINYL ALCOHOL 15 ML BOTTLE OP SCH ×4 (09:13→21:20)
[2017-09-24] MEDS: RIVAROXABAN 15 MG TABLET GT SCH ×2 (09:14→21:20)
[2017-09-24] MEDS: PROSTAT (PYXIS) 30 ML UDC GT SCH ×2 (09:14→16:41)
[2017-09-24] MEDS: MIDODRINE HCL (5MG) 5 MG TABLET GT SCH ×2 (09:15→21:20)
[2017-09-24] MEDS: LACTULOSE 20 G/30 ML UDC GT SCH (09:16)
[2017-09-24] MEDS: FUROSEMIDE SOLN 40 MG/5 ML UDC GT SCH (09:17)
[2017-09-24] MEDS: FERROUS SULFATE - FOR SA ONLY 330 MG/7.5 ML UDC GT SCH ×2 (09:17→16:41)
[2017-09-24] MEDS: SIMETHICONE SUSP 40 MG/0.6 ML BOTTLE GT SCH ×2 (09:18→21:19)
[2017-09-24] MEDS: KCL 20 MEQ/15 ML GT SCH (09:19)
[2017-09-24 21:10] VITALS: BP 109/66
[2017-09-24] MEDS: MULTIVIT, IRON, MIN NO. 8, FA 1 TAB GT SCH (21:20)
[2017-09-24] MEDS: SENNOSIDES 8.6 MG TABLET GT SCH (21:21)
[2017-09-24] MEDS: LANOLIN/MIN OIL/PETROLAT,WHT 3.5 GM TUBE EACHEYE SCH (21:21)
--- NOTE | 2017-09-25 04:55 | NUR ---
PT REC'D TRACHED ON [facility] VENT SETTINGS CHARTED. PT IS COMFORTABLE AND NO RESP DISTRESS NOTED. SX'D THICK MOD WHITE SECRETIONS. VENT PLUGGED INTO RED OUTLET. AMBU BAG BEDSIDE. ALARMS ARE SET AND AUDIBLE. WILL CONTINUE TO MONITOR Addendum: 09/25/17 at 0455 by CHIRAG MENDEZ RT Amended: Links added.
[2017-09-25] MEDS: BACLOFEN (10 MG) 10 MG TABLET GT SCH ×2 (05:03→17:59)
[2017-09-25] MEDS: OMEPRAZOLE 10 MG CAPSULE.DR GT SCH (05:03)
[2017-09-25] MEDS: GLUCERNA 1.2 1,000 ML BOTTLE GT PRN (05:19)
[2017-09-25 07:41] VITALS: BP 85/52
[2017-09-25] MEDS: IPRATROPIUM NEB FS 0.5 MG/2.5 ML AMPUL.NEB IH SCH ×2 (08:20→20:03)
[2017-09-25] MEDS: FUROSEMIDE SOLN 40 MG/5 ML UDC GT SCH (08:59)
[2017-09-25] MEDS: LACTULOSE 20 G/30 ML UDC GT SCH (09:00)
[2017-09-25] MEDS: FERROUS SULFATE - FOR SA ONLY 330 MG/7.5 ML UDC GT SCH ×2 (09:00→17:58)
[2017-09-25] MEDS: PROSTAT (PYXIS) 30 ML UDC GT SCH ×2 (09:00→17:58)
[2017-09-25] MEDS: KCL 20 MEQ/15 ML GT SCH (09:00)
[2017-09-25] MEDS: SIMETHICONE SUSP 40 MG/0.6 ML BOTTLE GT SCH ×2 (09:00→21:35)
[2017-09-25] MEDS: MIDODRINE HCL (5MG) 5 MG TABLET GT SCH ×2 (09:00→21:35)
[2017-09-25] MEDS: Z GUARD REMEDY 4 OZ OINT TP SCH ×2 (09:01→21:36)
[2017-09-25] MEDS: POLYVINYL ALCOHOL 15 ML BOTTLE OP SCH ×4 (09:01→21:36)
[2017-09-25] MEDS: RIVAROXABAN 15 MG TABLET GT SCH ×2 (09:01→21:36)
[2017-09-25] MEDS: HYDROGEN PEROXIDE 480 ML BOTTLE TP SCH ×2 (09:01→21:36)
--- NOTE | 2017-09-25 16:29 | NUR ---
RECEIVED PT TRACHED ON [facility] VENT SETTINGS ORDERED BY MD. NO RESP DISTRESS THROUGHOUT SHIFT. SX'D MODERATE AMOUNT OF PALE YELLOW THICK SECRETIONS. AIRWAY SECURE AND PATENT. VENT PLUGGED INTO RED OUTLET. ALARMS SET AND AUDIBLE. AMBU BAG AT BEDSIDE. WILL CONTINUE TO MONITOR
[2017-09-25 20:07] VITALS: BP 96/70
[2017-09-25] MEDS: MULTIVIT, IRON, MIN NO. 8, FA 1 TAB GT SCH (21:35)
[2017-09-25] MEDS: SENNOSIDES 8.6 MG TABLET GT SCH (21:36)
[2017-09-25] MEDS: LANOLIN/MIN OIL/PETROLAT,WHT 3.5 GM TUBE EACHEYE SCH (21:36)
[2017-09-26] MEDS: GLUCERNA 1.2 1,000 ML BOTTLE GT PRN ×2 (05:17→23:16)
[2017-09-26] MEDS: OMEPRAZOLE 10 MG CAPSULE.DR GT SCH (05:17)
[2017-09-26] MEDS: BACLOFEN (10 MG) 10 MG TABLET GT SCH ×2 (05:17→17:04)
[2017-09-26 07:26] VITALS: BP 96/60
[2017-09-26] MEDS: IPRATROPIUM NEB FS 0.5 MG/2.5 ML AMPUL.NEB IH SCH ×2 (08:13→19:08)
[2017-09-26] MEDS: Z GUARD REMEDY 4 OZ OINT TP SCH ×2 (09:00→21:00)
[2017-09-26] MEDS: HYDROGEN PEROXIDE 480 ML BOTTLE TP SCH ×2 (09:00→21:00)
[2017-09-26] MEDS: FERROUS SULFATE - FOR SA ONLY 330 MG/7.5 ML UDC GT SCH ×2 (09:09→17:04)
[2017-09-26] MEDS: LACTULOSE 20 G/30 ML UDC GT SCH (09:09)
[2017-09-26] MEDS: FUROSEMIDE SOLN 40 MG/5 ML UDC GT SCH (09:10)
[2017-09-26] MEDS: MIDODRINE HCL (5MG) 5 MG TABLET GT SCH ×2 (09:10→21:00)
[2017-09-26] MEDS: PROSTAT (PYXIS) 30 ML UDC GT SCH ×2 (09:10→17:04)
[2017-09-26] MEDS: KCL 20 MEQ/15 ML GT SCH (09:10)
[2017-09-26] MEDS: SIMETHICONE SUSP 40 MG/0.6 ML BOTTLE GT SCH ×2 (09:10→21:00)
[2017-09-26] MEDS: RIVAROXABAN 15 MG TABLET GT SCH ×2 (09:11→21:00)
[2017-09-26] MEDS: POLYVINYL ALCOHOL 15 ML BOTTLE OP SCH ×4 (09:11→21:00)
[2017-09-26] MEDS: NYSTATIN TOP POWDER 15 GM BOTTLE TP SCH ×2 (10:58→21:00)
--- NOTE | 2017-09-26 15:18 | NUR ---
RT NOTE: RECEIVED PATIENT WITH TRACH ON MECHANICAL VENT. SETTINGS PER MD ORDER. ALARMS VERIFIED AND AUDIBLE. SUCTIONED AND LAVAGED LARGE AMOUNT OF THIN WHITE SECRETIONS. VENT PLUGGED INTO RED OUTLET. AMBU BAG AND [facility].
[2017-09-26 20:05] VITALS: BP 125/76
[2017-09-26] MEDS: MULTIVIT, IRON, MIN NO. 8, FA 1 TAB GT SCH (21:00)
[2017-09-26] MEDS: LANOLIN/MIN OIL/PETROLAT,WHT 3.5 GM TUBE EACHEYE SCH (22:41)
[2017-09-26] MEDS: SENNOSIDES 8.6 MG TABLET GT SCH (22:41)
[2017-09-27] MEDS: LORAZEPAM 0.5 MG TABLET GT PRN (01:44)
--- NOTE | 2017-09-27 03:34 | NUR ---
INCREASED HEART RATE. ELAINE BOLAÑOS AWARE. Addendum: 09/27/17 at 0336 by RADHA FERMIN RT Amended: Links added.
--- NOTE | 2017-09-27 04:11 | NUR ---
RT NOTE PT TRACH'D ON MECHANICAL VENT. TX GIVEN. PT SX'D T/O SHIFT. INCREASED HEART RATE, CN ELINOR AND LN MAMI AWARE. PT TRACH SECURE AND PATENT. AMBUBAG AT BEDSIDE. VENT PLUGGED INTO RED OUTLET. ALARMS ARE ON AND AUDIBLE.
[2017-09-27 05:48] LABS: BASOPHILS % (AUTO) 0.2 % (0.0-2.0); EOSINOPHILS % (AUTO) 1.2 % (0.0-6.0); HEMATOCRIT 30 % (33-45); HEMOGLOBIN 9.6 g/dL (11.5-14.8); LYMPHOCYTES # (AUTO) 1.7 /CMM (0.8-4.8); LYMPHOCYTES % (AUTO) 15.1 % (20.0-44.0); MEAN CORPUSCULAR HEMOGLOBIN 25 PG (26.0-33.0); MEAN CORPUSCULAR HGB CONC 32 g/dl (31.0-36.0); MEAN CORPUSCULAR VOLUME 78 fL (82-100); MONOCYTES # (AUTO) 0.4 /CMM (0.1-1.30); MONOCYTES % (AUTO) 3.9 % (2.0-12.0); NEUTROPHILS # (AUTO) 8.8 /CMM (1.8-8.9); NEUTROPHILS % (AUTO) 79.6 % (43.0-81.0); PLATELET COUNT (AUTO) 288 /CMM (150-450); RDW COEFFICIENT OF VARIATION 20.5 (11.5-15.0); RED BLOOD CELL COUNT(AUTO) 3.87 MIL/uL (4.0-5.2); WHITE BLOOD COUNT (AUTO) 11.1 K/uL (4.3-11.0)
[2017-09-27] MEDS: BACLOFEN (10 MG) 10 MG TABLET GT SCH ×2 (06:17→17:06)
[2017-09-27] MEDS: OMEPRAZOLE 10 MG CAPSULE.DR GT SCH (06:17)
[2017-09-27] MEDS: IPRATROPIUM NEB FS 0.5 MG/2.5 ML AMPUL.NEB IH SCH ×2 (07:10→19:41)
[2017-09-27 07:21] VITALS: BP 114/82
[2017-09-27] MEDS: SIMETHICONE SUSP 40 MG/0.6 ML BOTTLE GT SCH ×2 (09:00→21:12)
[2017-09-27] MEDS: PROSTAT (PYXIS) 30 ML UDC GT SCH ×2 (09:00→17:06)
[2017-09-27] MEDS: FUROSEMIDE SOLN 40 MG/5 ML UDC GT SCH (09:00)
[2017-09-27] MEDS: FERROUS SULFATE - FOR SA ONLY 330 MG/7.5 ML UDC GT SCH ×2 (09:00→17:06)
[2017-09-27] MEDS: POLYVINYL ALCOHOL 15 ML BOTTLE OP SCH ×4 (09:00→21:12)
[2017-09-27] MEDS: NYSTATIN TOP POWDER 15 GM BOTTLE TP SCH ×2 (09:00→21:12)
[2017-09-27] MEDS: Z GUARD REMEDY 4 OZ OINT TP SCH ×2 (09:00→21:12)
[2017-09-27] MEDS: HYDROGEN PEROXIDE 480 ML BOTTLE TP SCH ×2 (09:00→21:12)
[2017-09-27] MEDS: RIVAROXABAN 15 MG TABLET GT SCH ×2 (09:00→21:13)
[2017-09-27] MEDS: MIDODRINE HCL (5MG) 5 MG TABLET GT SCH ×2 (09:00→21:00)
[2017-09-27] MEDS: LACTULOSE 20 G/30 ML UDC GT SCH (09:00)
[2017-09-27] MEDS: KCL 20 MEQ/15 ML GT SCH (09:00)
[2017-09-27] MEDS: ACETAMINOPHEN 650 MG/20 ML UDC- FOR SA PATIENTS ONLY GT PRN (10:18)
--- NOTE | 2017-09-27 13:00 | NUR ---
Pt's mother called. Notified her pt had an episode of SOB and tachycardia last night, pt was given Ativan. She asked why the pt is still on the ventilator. She said she wants the pt to be weaned off the ventilator. Charge nurse informed her that she will ask the strings teacher about it. Pt's mother said she is planning to move the pt to a new facility in [place] but nothing has been arranged yet. Asked her if she wanted to discuss it with the case management social worker, she declined.
--- NOTE | 2017-09-27 17:24 | NUR ---
Seen by NIKI Pabon. Notified her pt had an episode of SOB and tachycardia last night and pt's mother was asking when pt can be weaned off the ventilator again. NIKI Pabon discussed it with Dr. Macario and Dr. Macario ordered to place pt on CPAP PS 15 Peep 5 tomorrow, ABG in 2 hours after vent change. Notified pt's mother.
[2017-09-27 20:27] VITALS: BP 122/57
[2017-09-27] MEDS: MULTIVIT, IRON, MIN NO. 8, FA 1 TAB GT SCH (21:12)
[2017-09-27] MEDS: SENNOSIDES 8.6 MG TABLET GT SCH (21:13)
[2017-09-27] MEDS: LANOLIN/MIN OIL/PETROLAT,WHT 3.5 GM TUBE EACHEYE SCH (21:41)
--- NOTE | 2017-09-28 05:17 | NUR ---
PT RECEIVED ON VENT VIA TRACH SETTINGS CHARTED. AMBU AT BEDSIDE ALARMS SET AND AUDIBLE. DISCONNECT ALARMS CHECKED. VENT PLUGGED IN TO RED OUTLET. TOLERATING SETTINGS AT THIS TIME Addendum: 09/28/17 at 0519 by MELISA GARCIA RT Amended: Links added.
[2017-09-28] MEDS: BACLOFEN (10 MG) 10 MG TABLET GT SCH ×2 (06:11→17:01)
[2017-09-28] MEDS: OMEPRAZOLE 10 MG CAPSULE.DR GT SCH (06:12)
[2017-09-28] MEDS: IPRATROPIUM NEB FS 0.5 MG/2.5 ML AMPUL.NEB IH SCH ×2 (07:11→19:30)
--- NOTE | 2017-09-28 07:53 | NUR ---
RT NOTE PT PLACED ON CPAP PER MD ORDER. SETTINGS PRESCRIBED CPAP +5 PS 15 35%. ALARMS SET PER PROTOCOL AND AUDIBLE. TRACH MIDLINE AND SECURE. VENT PLUGGED IN TO RED OUTLET. AMBU BAG AT BED SIDE. NO DISTRESS NOTED AT MOMENT. WILL CONTINUE TO MONITOR. Addendum: 09/28/17 at 0754 by BONNIE HAYNES RT Amended: Links added.
[2017-09-28 07:56] VITALS: BP 122/72
[2017-09-28] MEDS: FERROUS SULFATE - FOR SA ONLY 330 MG/7.5 ML UDC GT SCH ×2 (09:23→17:00)
[2017-09-28] MEDS: RIVAROXABAN 15 MG TABLET GT SCH ×2 (09:23→20:39)
[2017-09-28] MEDS: PROSTAT (PYXIS) 30 ML UDC GT SCH ×2 (09:23→17:00)
[2017-09-28] MEDS: SIMETHICONE SUSP 40 MG/0.6 ML BOTTLE GT SCH ×2 (09:23→20:38)
[2017-09-28] MEDS: POLYVINYL ALCOHOL 15 ML BOTTLE OP SCH ×4 (09:23→20:39)
[2017-09-28] MEDS: MIDODRINE HCL (5MG) 5 MG TABLET GT SCH ×2 (09:23→20:39)
[2017-09-28] MEDS: FUROSEMIDE SOLN 40 MG/5 ML UDC GT SCH (09:23)
[2017-09-28] MEDS: LACTULOSE 20 G/30 ML UDC GT SCH (09:23)
[2017-09-28] MEDS: KCL 20 MEQ/15 ML GT SCH (09:23)
[2017-09-28] MEDS: Z GUARD REMEDY 4 OZ OINT TP SCH ×2 (09:24→20:39)
[2017-09-28] MEDS: HYDROGEN PEROXIDE 480 ML BOTTLE TP SCH ×2 (09:24→20:39)
[2017-09-28] MEDS: NYSTATIN TOP POWDER 15 GM BOTTLE TP SCH ×2 (09:24→20:39)
[2017-09-28 11:05] LABS: ABG BASE EXCESS 3.4 mmol/L; ABG OXYGEN SATURATION 97.4 % (92.0-98.5); ABG PCO2 47.1 mmHg (35.0-45.0); ABG PH 7.403 (7.350-7.450); ABG PO2 112.1 mmHg (75.0-100.0); AaDO2 82.7 mmHg; COHb 0.9 % (0.5-1.5); MetHb 0.5 % (0.0-1.5); SITE, ABG Right Radial; VENT MODE, BG CPAP PS 15 +5 35%
--- NOTE | 2017-09-28 11:13 | NUR ---
Pt was placed on CPAP PS 15 PEEP 5 as ordered. Relayed ABG result to Dr. Macario. He ordered to keep pt on CPAP then place on cool aerosol in AM as tolerated. Notified pt's mother.
[2017-09-28 20:08] VITALS: BP 96/48
[2017-09-28] MEDS: MULTIVIT, IRON, MIN NO. 8, FA 1 TAB GT SCH (20:39)
[2017-09-28] MEDS: SENNOSIDES 8.6 MG TABLET GT SCH (21:50)
[2017-09-28] MEDS: LANOLIN/MIN OIL/PETROLAT,WHT 3.5 GM TUBE EACHEYE SCH (21:50)
[2017-09-29] MEDS: BACLOFEN (10 MG) 10 MG TABLET GT SCH ×2 (05:27→17:33)
[2017-09-29] MEDS: OMEPRAZOLE 10 MG CAPSULE.DR GT SCH (05:27)
[2017-09-29] MEDS: IPRATROPIUM NEB FS 0.5 MG/2.5 ML AMPUL.NEB IH SCH ×2 (07:29→19:45)
--- NOTE | 2017-09-29 07:30 | NUR ---
RT PLACED PT ON CA 35% PER MD ORDER. CHARGE NURSE AND NURSE NOTIFIED. NO RESP DISTRESS NOTED, WILL CONTINUE TO MONITOR T/O SHIFT.
[2017-09-29 07:35] VITALS: BP 104/65
[2017-09-29] MEDS: FERROUS SULFATE - FOR SA ONLY 330 MG/7.5 ML UDC GT SCH ×2 (08:35→17:33)
[2017-09-29] MEDS: LACTULOSE 20 G/30 ML UDC GT SCH (08:35)
[2017-09-29] MEDS: KCL 20 MEQ/15 ML GT SCH (08:36)
[2017-09-29] MEDS: SIMETHICONE SUSP 40 MG/0.6 ML BOTTLE GT SCH ×2 (08:36→20:30)
[2017-09-29] MEDS: FUROSEMIDE SOLN 40 MG/5 ML UDC GT SCH (08:36)
[2017-09-29] MEDS: PROSTAT (PYXIS) 30 ML UDC GT SCH ×2 (08:38→17:33)
[2017-09-29] MEDS: MIDODRINE HCL (5MG) 5 MG TABLET GT SCH ×2 (08:38→20:30)
[2017-09-29] MEDS: POLYVINYL ALCOHOL 15 ML BOTTLE OP SCH ×4 (08:39→20:31)
[2017-09-29] MEDS: RIVAROXABAN 15 MG TABLET GT SCH ×2 (08:39→20:30)
[2017-09-29] MEDS: HYDROGEN PEROXIDE 480 ML BOTTLE TP SCH ×2 (08:40→20:31)
[2017-09-29] MEDS: Z GUARD REMEDY 4 OZ OINT TP SCH ×2 (08:40→20:31)
[2017-09-29] MEDS: NYSTATIN TOP POWDER 15 GM BOTTLE TP SCH ×2 (08:40→20:31)
[2017-09-29 10:32] LABS: ABG BASE EXCESS 3.8 mmol/L; ABG OXYGEN SATURATION 98.1 % (92.0-98.5); ABG PCO2 49.7 mmHg (35.0-45.0); ABG PO2 131.9 mmHg (75.0-100.0); AaDO2 59.9 mmHg; COHb 0.8 % (0.5-1.5); MetHb 0.5 % (0.0-1.5); O2Hb 96.8 % (94.0-97.0); SITE, ABG Right Radial; VENT MODE, BG C/A @ 35
--- NOTE | 2017-09-29 11:30 | NUR ---
Dr. Macario notified patient is tolerating cool aerosol saturating 98%-100%, ABG was done and MD is aware iwth order to continue cool aerosol as tolerated and place patient on AC PRN distress. Spoke with resident's mother that patient is tolerating cool aerosol and will only place patient on ventilator when she is in distress. Appreciated the call.
--- NOTE | 2017-09-29 14:30 | NUR ---
Notified NIKI Ashford, ID that patient has redness in the L thigh warm to touch with new order for Vancomycin, pharmacy to dose. Faxed order to [facility] pharmacy, spoke with Nani IV pharmacist. Awaiting for their recommendation.
--- NOTE | 2017-09-29 16:30 | NUR ---
Received pharmacy recommendation to start patient on Vancomycin 1 gm Q 24 hours for leg cellulitis. No stop date at this moment. Spoke with Sabrina, resident's mother and updated her of the new order for ATB due to leg cellulitis and continue cool aerosol with order to place pt. on the ventilator as needed when in distress. Appreciated the call.
[2017-09-29] MEDS: LACTULOSE 10 G/15 ML UDC (PYXIS) GT PRN (17:33)
[2017-09-29] MEDS: GLUCERNA 1.2 1,000 ML BOTTLE GT PRN (17:39)
--- NOTE | 2017-09-29 19:47 | NUR ---
pt unable to tolarate cool aerosol. Abilio LACE PINNER placed pt on [facility] vent on settings as charted. pt showed signs of resp distress and tachycardia. vent plugged into red outlet. alarms are set and audible. ambu bag bedside. will continue to monitor. Addendum: 09/29/17 at 1949 by CHIRAG MENDEZ RT Amended: Links added.
[2017-09-29 19:48] VITALS: BP 115/74
[2017-09-29] MEDS: VANCOMYCIN 1 GM in IV D5W 250ml IV SCH (20:00)
--- NOTE | 2017-09-29 20:00 | NUR ---
Seen and examined by Makeda WITH NEW ORDERS,MARCOS NOW FOR EMESIS CXR IN AM.ZOSYN 3.375GM Q 8HRS FOR POSSIBLE PNA.ORDERS CARRIED OUT.
[2017-09-29] MEDS: MULTIVIT, IRON, MIN NO. 8, FA 1 TAB GT SCH (20:30)
[2017-09-29] MEDS: ONDANSETRON 4 MG TAB.RAPDIS GT PRN (20:31)
--- NOTE | 2017-09-29 20:50 | NUR ---
PT MOTHER HI NOTIFIED WITH NEW ORDERS OF ANTIBIOTICS AND X RAYS.ALSO TOLD HER THAT PATIENT IS BACK TO VENTILATOR DUE TO DESATURATION AND INCREASED HR.APPRECIATE THE CALL.WILL CONTINUE TO MONITOR PATIENT.
[2017-09-29] MEDS: PIPERACILLIN /TAZOBACTAM 3.375 G in IV D5W 50 ML IV SCH (21:00)
[2017-09-29] MEDS: LANOLIN/MIN OIL/PETROLAT,WHT 3.5 GM TUBE EACHEYE SCH (21:43)
[2017-09-29] MEDS: SENNOSIDES 8.6 MG TABLET GT SCH (21:43)
[2017-09-30] MEDS: PIPERACILLIN /TAZOBACTAM 3.375 G in IV D5W 50 ML IV SCH ×3 (05:03→21:32)
[2017-09-30] MEDS: OMEPRAZOLE 10 MG CAPSULE.DR GT SCH (05:26)
[2017-09-30] MEDS: BACLOFEN (10 MG) 10 MG TABLET GT SCH ×2 (05:26→17:00)
--- NOTE | 2017-09-30 06:52 | NUR ---
PATIENT REMAINS STABLE,NO MORE EPISODES OF RESPIRATORY DISTRESS AND VOMITING.WILL CONTINUE TO MONITOR.
[2017-09-30 06:56] LABS: BASOPHILS % (AUTO) 0.2 % (0.0-2.0); HEMATOCRIT 27 % (33-45); HEMOGLOBIN 8.7 g/dL (11.5-14.8); LYMPHOCYTES # (AUTO) 1.7 /CMM (0.8-4.8); LYMPHOCYTES % (AUTO) 22.5 % (20.0-44.0); MEAN CORPUSCULAR HEMOGLOBIN 25 PG (26.0-33.0); MEAN CORPUSCULAR HGB CONC 32 g/dl (31.0-36.0); MEAN CORPUSCULAR VOLUME 78 fL (82-100); MONOCYTES # (AUTO) 0.5 /CMM (0.1-1.30); MONOCYTES % (AUTO) 7.2 % (2.0-12.0); NEUTROPHILS # (AUTO) 4.7 /CMM (1.8-8.9); NEUTROPHILS % (AUTO) 64.1 % (43.0-81.0); PLATELET COUNT (AUTO) 238 /CMM (150-450); RED BLOOD CELL COUNT(AUTO) 3.44 MIL/uL (4.0-5.2); WHITE BLOOD COUNT (AUTO) 7.4 K/uL (4.3-11.0)
[2017-09-30] MEDS: IPRATROPIUM NEB FS 0.5 MG/2.5 ML AMPUL.NEB IH SCH ×2 (07:22→19:45)
[2017-09-30 07:50] VITALS: BP 116/65
[2017-09-30] MEDS: LACTULOSE 20 G/30 ML UDC GT SCH (08:06)
[2017-09-30] MEDS: FUROSEMIDE SOLN 40 MG/5 ML UDC GT SCH (08:06)
[2017-09-30] MEDS: KCL 20 MEQ/15 ML GT SCH (08:06)
[2017-09-30] MEDS: PROSTAT (PYXIS) 30 ML UDC GT SCH ×2 (08:06→17:00)
[2017-09-30] MEDS: MIDODRINE HCL (5MG) 5 MG TABLET GT SCH ×2 (08:06→20:44)
[2017-09-30] MEDS: FERROUS SULFATE - FOR SA ONLY 330 MG/7.5 ML UDC GT SCH ×2 (08:06→17:00)
[2017-09-30] MEDS: SIMETHICONE SUSP 40 MG/0.6 ML BOTTLE GT SCH ×2 (08:06→20:44)
[2017-09-30] MEDS: RIVAROXABAN 15 MG TABLET GT SCH ×2 (08:08→20:45)
[2017-09-30] MEDS: NYSTATIN TOP POWDER 15 GM BOTTLE TP SCH ×2 (08:08→20:45)
[2017-09-30] MEDS: HYDROGEN PEROXIDE 480 ML BOTTLE TP SCH ×2 (08:08→20:45)
[2017-09-30] MEDS: POLYVINYL ALCOHOL 15 ML BOTTLE OP SCH ×4 (08:08→20:45)
[2017-09-30] MEDS: Z GUARD REMEDY 4 OZ OINT TP SCH ×2 (08:08→20:45)
--- NOTE | 2017-09-30 09:55 | NUR ---
Relayed result of Chest x-ray,KUB and labs to NIKI damico,said will see and check the pt later.
[2017-09-30] MEDS: GLUCERNA 1.2 1,000 ML BOTTLE GT PRN (17:03)
[2017-09-30 19:53] VITALS: BP 98/64
[2017-09-30] MEDS: VANCOMYCIN 1 GM in IV D5W 250ml IV SCH (20:00)
[2017-09-30] MEDS: MULTIVIT, IRON, MIN NO. 8, FA 1 TAB GT SCH (20:44)
[2017-09-30] MEDS: SENNOSIDES 8.6 MG TABLET GT SCH (21:50)
[2017-09-30] MEDS: LANOLIN/MIN OIL/PETROLAT,WHT 3.5 GM TUBE EACHEYE SCH (21:50)
[2017-10-01] MEDS: PIPERACILLIN /TAZOBACTAM 3.375 G in IV D5W 50 ML IV SCH ×3 (05:03→21:22)
[2017-10-01] MEDS: OMEPRAZOLE 10 MG CAPSULE.DR GT SCH (05:14)
[2017-10-01] MEDS: BACLOFEN (10 MG) 10 MG TABLET GT SCH ×2 (05:14→18:31)
[2017-10-01 07:33] VITALS: BP 112/65
[2017-10-01 08:00] VITALS: BP 108/61
[2017-10-01] MEDS: IPRATROPIUM NEB FS 0.5 MG/2.5 ML AMPUL.NEB IH SCH ×2 (08:07→19:59)
[2017-10-01] MEDS: MIDODRINE HCL (5MG) 5 MG TABLET GT SCH ×2 (08:21→20:01)
[2017-10-01] MEDS: PROSTAT (PYXIS) 30 ML UDC GT SCH ×2 (08:21→17:00)
[2017-10-01] MEDS: KCL 20 MEQ/15 ML GT SCH (08:21)
[2017-10-01] MEDS: SIMETHICONE SUSP 40 MG/0.6 ML BOTTLE GT SCH ×2 (08:21→20:00)
[2017-10-01] MEDS: FUROSEMIDE SOLN 40 MG/5 ML UDC GT SCH (08:21)
[2017-10-01] MEDS: LACTULOSE 20 G/30 ML UDC GT SCH (08:21)
[2017-10-01] MEDS: FERROUS SULFATE - FOR SA ONLY 330 MG/7.5 ML UDC GT SCH ×2 (08:21→17:00)
[2017-10-01] MEDS: HYDROGEN PEROXIDE 480 ML BOTTLE TP SCH ×2 (08:24→20:01)
[2017-10-01] MEDS: RIVAROXABAN 15 MG TABLET GT SCH ×2 (08:24→20:03)
[2017-10-01] MEDS: NYSTATIN TOP POWDER 15 GM BOTTLE TP SCH ×2 (08:24→20:02)
[2017-10-01] MEDS: Z GUARD REMEDY 4 OZ OINT TP SCH ×2 (08:24→20:02)
[2017-10-01] MEDS: POLYVINYL ALCOHOL 15 ML BOTTLE OP SCH ×4 (08:24→20:01)
--- NOTE | 2017-10-01 11:50 | NUR ---
Probate Security Escort Rica Zuniga from [facility] came to see the resident for review of conservatorship. She presented an Order Authorizing Access to Medical Records signed by [facility] Clerk of the [address] Luciano Gonzalez. SW provided her with resident's facesheet, current med list, and diagnosis. She visited the resident and read her her rights that she has. She noted that paperwork is supposed to be reviewed every 2 years if resident has a conservator. She appreciated the information provided by the LIZANDRO.
[2017-10-01] MEDS: GLUCERNA 1.2 1,000 ML BOTTLE GT PRN ×2 (18:56→23:27)
[2017-10-01 19:45] VITALS: BP 103/75
[2017-10-01] MEDS: MULTIVIT, IRON, MIN NO. 8, FA 1 TAB GT SCH (20:01)
[2017-10-01] MEDS: VANCOMYCIN 1 GM in IV D5W 250ml IV SCH (20:03)
[2017-10-01] MEDS: SENNOSIDES 8.6 MG TABLET GT SCH (21:36)
[2017-10-01] MEDS: LANOLIN/MIN OIL/PETROLAT,WHT 3.5 GM TUBE EACHEYE SCH (21:36)
[2017-10-02] MEDS: BACLOFEN (10 MG) 10 MG TABLET GT SCH ×2 (05:23→18:08)
[2017-10-02] MEDS: OMEPRAZOLE 10 MG CAPSULE.DR GT SCH (05:23)
[2017-10-02] MEDS: PIPERACILLIN /TAZOBACTAM 3.375 G in IV D5W 50 ML IV SCH ×3 (05:30→21:00)
[2017-10-02] MEDS: IPRATROPIUM NEB FS 0.5 MG/2.5 ML AMPUL.NEB IH SCH ×2 (07:46→19:30)
--- NOTE | 2017-10-02 07:54 | NUR ---
Received pt on mechanical vent. PT trach is secure. Vent is plugged into a red outlet, alarms are set and audible, and BVM is at bedside. Addendum: 10/02/17 at 0755 by NADINE RIOS RT Amended: Links added.
[2017-10-02 07:56] VITALS: BP 104/83
[2017-10-02] MEDS: HYDROGEN PEROXIDE 480 ML BOTTLE TP SCH ×2 (09:00→21:59)
[2017-10-02] MEDS ORDERED: Z GUARD REMEDY 2 OZ OINT TP PRN (09:00)
[2017-10-02] MEDS: KCL 20 MEQ/15 ML GT SCH (09:00)
[2017-10-02] MEDS: Z GUARD REMEDY 4 OZ OINT TP SCH ×2 (09:00→21:59)
[2017-10-02] MEDS: FERROUS SULFATE - FOR SA ONLY 330 MG/7.5 ML UDC GT SCH ×2 (09:00→16:15)
[2017-10-02] MEDS: LACTULOSE 20 G/30 ML UDC GT SCH (09:00)
[2017-10-02] MEDS: RIVAROXABAN 15 MG TABLET GT SCH ×2 (09:00→21:00)
[2017-10-02] MEDS: FUROSEMIDE SOLN 40 MG/5 ML UDC GT SCH (09:00)
[2017-10-02] MEDS: NYSTATIN TOP POWDER 15 GM BOTTLE TP SCH ×2 (09:00→21:59)
[2017-10-02] MEDS: POLYVINYL ALCOHOL 15 ML BOTTLE OP SCH ×4 (09:00→21:59)
[2017-10-02] MEDS: MIDODRINE HCL (5MG) 5 MG TABLET GT SCH ×2 (09:00→21:58)
[2017-10-02] MEDS: PROSTAT (PYXIS) 30 ML UDC GT SCH ×2 (09:00→16:15)
[2017-10-02] MEDS: SIMETHICONE SUSP 40 MG/0.6 ML BOTTLE GT SCH ×2 (09:00→20:22)
--- NOTE | 2017-10-02 19:30 | NUR ---
Seen and examined by NIKI Ashford with order to give ATB Vancomycin and Zosyn for a total of 2 weeks. Endorsed top incoming shift.
[2017-10-02 19:44] VITALS: BP 98/57
[2017-10-02] MEDS: VANCOMYCIN 1 GM in IV D5W 250ml IV SCH (20:14)
[2017-10-02 21:50] LABS: CREATININE 0.5 mg/dL (0.6-1.3)
[2017-10-02] MEDS: MULTIVIT, IRON, MIN NO. 8, FA 1 TAB GT SCH (21:58)
[2017-10-02] MEDS: LANOLIN/MIN OIL/PETROLAT,WHT 3.5 GM TUBE EACHEYE SCH (21:59)
[2017-10-02] MEDS: SENNOSIDES 8.6 MG TABLET GT SCH (21:59)
[2017-10-02] MEDS: GLUCERNA 1.2 1,000 ML BOTTLE GT PRN (23:02)
[2017-10-03] MEDS: PIPERACILLIN /TAZOBACTAM 3.375 G in IV D5W 50 ML IV SCH ×3 (04:03→21:00)
[2017-10-03] MEDS: OMEPRAZOLE 10 MG CAPSULE.DR GT SCH (05:01)
[2017-10-03] MEDS: BACLOFEN (10 MG) 10 MG TABLET GT SCH ×2 (05:01→17:21)
--- NOTE | 2017-10-03 06:00 | NUR ---
PT RECEIVED ON VENT VIA TRACH SECURED WITH TRACH TIE, SETTINGS CHARTED. AMBU AT BEDSIDE. ALARMS SET AND AUDIBLE. DISCONNECT ALARMS CHECKED. VENT PLUGGED IN TO RED OUTLET. TOLERATING SETTINGS AT THIS TIME Addendum: 10/03/17 at 0601 by MELISA GARCIA RT Amended: Links added.
[2017-10-03] MEDS: IPRATROPIUM NEB FS 0.5 MG/2.5 ML AMPUL.NEB IH SCH ×2 (07:24→19:30)
[2017-10-03 07:36] VITALS: BP 101/60
[2017-10-03] MEDS: SIMETHICONE SUSP 40 MG/0.6 ML BOTTLE GT SCH ×2 (08:33→21:06)
[2017-10-03] MEDS: KCL 20 MEQ/15 ML GT SCH (08:33)
[2017-10-03] MEDS: FERROUS SULFATE - FOR SA ONLY 330 MG/7.5 ML UDC GT SCH ×2 (08:33→17:21)
[2017-10-03] MEDS: FUROSEMIDE SOLN 40 MG/5 ML UDC GT SCH (08:33)
[2017-10-03] MEDS: MIDODRINE HCL (5MG) 5 MG TABLET GT SCH ×2 (08:33→21:06)
[2017-10-03] MEDS: PROSTAT (PYXIS) 30 ML UDC GT SCH ×2 (08:33→17:21)
[2017-10-03] MEDS: LACTULOSE 20 G/30 ML UDC GT SCH (08:33)
[2017-10-03] MEDS: RIVAROXABAN 15 MG TABLET GT SCH ×2 (08:34→21:35)
[2017-10-03] MEDS: POLYVINYL ALCOHOL 15 ML BOTTLE OP SCH ×4 (08:34→21:06)
[2017-10-03] MEDS: Z GUARD REMEDY 4 OZ OINT TP SCH ×2 (09:00→21:07)
[2017-10-03] MEDS: HYDROGEN PEROXIDE 480 ML BOTTLE TP SCH ×2 (09:00→21:06)
[2017-10-03] MEDS: NYSTATIN TOP POWDER 15 GM BOTTLE TP SCH ×2 (09:00→21:06)
[2017-10-03] MEDS: LORAZEPAM 0.5 MG TABLET GT PRN (12:33)
--- NOTE | 2017-10-03 15:06 | NUR ---
Received a call from Nani, pharmacist from [facility] pharmacy and said to continue current does of Vancomycin 1 gm Q 24 hours (Vanco trough level 12) with another Vanco trough, BUN and creat level on . Order carried out.
[2017-10-03] MEDS ORDERED: IV NS 0.9% 1,000 ML IV PRN (18:00)
[2017-10-03] MEDS: GLUCERNA 1.2 1,000 ML BOTTLE GT PRN (18:06)
--- NOTE | 2017-10-03 18:30 | NUR ---
Notified Dr. Alfaro that resident's HR fluctuating 90-145. He said that she is dehydrated with order to give IVF at 125cc/hr x2 L and to do CBC and BMP in AM. Endorsed to carry out the order and notify family.
[2017-10-03 19:37] VITALS: BP 115/68
[2017-10-03] MEDS: VANCOMYCIN 1 GM in IV D5W 250ml IV SCH (20:00)
[2017-10-03] MEDS: MULTIVIT, IRON, MIN NO. 8, FA 1 TAB GT SCH (21:06)
[2017-10-03] MEDS: LANOLIN/MIN OIL/PETROLAT,WHT 3.5 GM TUBE EACHEYE SCH (21:07)
[2017-10-03] MEDS: SENNOSIDES 8.6 MG TABLET GT SCH (21:07)
[2017-10-04] MEDS: LORAZEPAM 0.5 MG TABLET GT PRN (03:30)
--- NOTE | 2017-10-04 03:30 | NUR ---
Patient awake with heart rate ranging from 135 to 145 and respiration rate in the 30s. Pt is clean and dry. PRN Ativan 0.5 mg given via GT for anxiety and respiratory distress. Will continue to monitor.
[2017-10-04] MEDS: PIPERACILLIN /TAZOBACTAM 3.375 G in IV D5W 50 ML IV SCH ×3 (05:00→21:00)
--- NOTE | 2017-10-04 05:00 | NUR ---
PRN Ativan effective. Pt calm, HR 96, RR 12.
[2017-10-04] MEDS: BACLOFEN (10 MG) 10 MG TABLET GT SCH ×2 (05:19→17:12)
[2017-10-04] MEDS: OMEPRAZOLE 10 MG CAPSULE.DR GT SCH (05:19)
[2017-10-04 06:59] LABS: BASOPHILS % (AUTO) 0.3 % (0.0-2.0); EOSINOPHILS % (AUTO) 3.4 % (0.0-6.0); HEMATOCRIT 24 % (33-45); HEMOGLOBIN 7.6 g/dL (11.5-14.8); LYMPHOCYTES # (AUTO) 2.4 /CMM (0.8-4.8); LYMPHOCYTES % (AUTO) 29.9 % (20.0-44.0); MEAN CORPUSCULAR HEMOGLOBIN 25 PG (26.0-33.0); MEAN CORPUSCULAR HGB CONC 32 g/dl (31.0-36.0); MEAN CORPUSCULAR VOLUME 79 fL (82-100); MONOCYTES # (AUTO) 0.6 /CMM (0.1-1.30); MONOCYTES % (AUTO) 7.2 % (2.0-12.0); NEUTROPHILS # (AUTO) 4.8 /CMM (1.8-8.9); NEUTROPHILS % (AUTO) 59.2 % (43.0-81.0); PLATELET COUNT (AUTO) 242 /CMM (150-450); RDW COEFFICIENT OF VARIATION 19.9 (11.5-15.0); RED BLOOD CELL COUNT(AUTO) 3.07 MIL/uL (4.0-5.2); WHITE BLOOD COUNT (AUTO) 8.1 K/uL (4.3-11.0)
[2017-10-04] MEDS: IPRATROPIUM NEB FS 0.5 MG/2.5 ML AMPUL.NEB IH SCH ×2 (07:43→20:27)
[2017-10-04] MEDS: POLYVINYL ALCOHOL 15 ML BOTTLE OP SCH ×4 (09:00→21:02)
[2017-10-04] MEDS: KCL 20 MEQ/15 ML GT SCH (09:00)
[2017-10-04] MEDS: SIMETHICONE SUSP 40 MG/0.6 ML BOTTLE GT SCH ×2 (09:00→21:02)
[2017-10-04] MEDS: Z GUARD REMEDY 4 OZ OINT TP SCH ×2 (09:00→21:02)
[2017-10-04] MEDS: HYDROGEN PEROXIDE 480 ML BOTTLE TP SCH ×2 (09:00→21:02)
[2017-10-04] MEDS: FUROSEMIDE SOLN 40 MG/5 ML UDC GT SCH (09:00)
[2017-10-04] MEDS: FERROUS SULFATE - FOR SA ONLY 330 MG/7.5 ML UDC GT SCH ×2 (09:00→12:34)
[2017-10-04] MEDS: MIDODRINE HCL (5MG) 5 MG TABLET GT SCH ×2 (09:00→21:02)
[2017-10-04] MEDS: NYSTATIN TOP POWDER 15 GM BOTTLE TP SCH ×2 (09:00→21:02)
[2017-10-04] MEDS: PROSTAT (PYXIS) 30 ML UDC GT SCH ×2 (09:00→12:34)
[2017-10-04] MEDS: LACTULOSE 20 G/30 ML UDC GT SCH (09:00)
[2017-10-04] MEDS: RIVAROXABAN 15 MG TABLET GT SCH ×2 (09:00→21:02)
[2017-10-04 09:02] VITALS: BP 106/67
--- NOTE | 2017-10-04 10:30 | NUR ---
Seen by Dr. Dugan. She is aware of lab results. No new order.
[2017-10-04] MEDS: ACETAMINOPHEN 650 MG/20 ML UDC- FOR SA PATIENTS ONLY GT PRN (10:31)
[2017-10-04] MEDS: VANCOMYCIN 1 GM in IV D5W 250ml IV SCH (20:00)
[2017-10-04 20:02] VITALS: BP_SYST 104; BP_SYST 90; BP_DIAS 49; BP_DIAS 56
[2017-10-04] MEDS: GLUCERNA 1.2 1,000 ML BOTTLE GT PRN (21:02)
[2017-10-04] MEDS: SENNOSIDES 8.6 MG TABLET GT SCH (21:02)
[2017-10-04] MEDS: MULTIVIT, IRON, MIN NO. 8, FA 1 TAB GT SCH (21:02)
[2017-10-04] MEDS: LANOLIN/MIN OIL/PETROLAT,WHT 3.5 GM TUBE EACHEYE SCH (21:02)
[2017-10-05] MEDS: LORAZEPAM 0.5 MG TABLET GT PRN (02:21)
[2017-10-05] MEDS: PIPERACILLIN /TAZOBACTAM 3.375 G in IV D5W 50 ML IV SCH ×2 (05:00→21:00)
[2017-10-05] MEDS: BACLOFEN (10 MG) 10 MG TABLET GT SCH ×2 (05:57→17:28)
[2017-10-05] MEDS: OMEPRAZOLE 10 MG CAPSULE.DR GT SCH (05:57)
--- NOTE | 2017-10-05 06:06 | NUR ---
PT RECEIVED ON VENT VIA TRACH SECURED WITH TRACH TIE, SETTINGS CHARTED. AMBU AT BEDSIDE. ALARMS SET AND AUDIBLE. DISCONNECT ALARMS CHECKED. VENT PLUGGED IN TO RED OUTLET. Addendum: 10/05/17 at 0607 by MELISA GARCIA RT Amended: Links added.
--- NOTE | 2017-10-05 06:06 | NUR ---
PT RECEIVED ON VENT VIA TRACH SECURED WITH TRACH TIE, SETTINGS CHARTED. AMBU AT BEDSIDE. ALARMS SET AND AUDIBLE. DISCONNECT ALARMS CHECKED. VENT PLUGGED IN TO RED OUTLET. RR INCREASED AT THIS TIME Addendum: 10/05/17 at 0607 by MELISA GARCIA RT Amended: Links added.
[2017-10-05 07:43] VITALS: BP 93/47
[2017-10-05] MEDS: IPRATROPIUM NEB FS 0.5 MG/2.5 ML AMPUL.NEB IH SCH ×2 (07:47→19:51)
[2017-10-05] MEDS: LACTULOSE 20 G/30 ML UDC GT SCH (09:26)
[2017-10-05] MEDS: FERROUS SULFATE - FOR SA ONLY 330 MG/7.5 ML UDC GT SCH ×2 (09:26→17:26)
[2017-10-05] MEDS: KCL 20 MEQ/15 ML GT SCH (09:26)
[2017-10-05] MEDS: FUROSEMIDE SOLN 40 MG/5 ML UDC GT SCH (09:28)
[2017-10-05] MEDS: SIMETHICONE SUSP 40 MG/0.6 ML BOTTLE GT SCH ×2 (09:28→20:27)
[2017-10-05] MEDS: POLYVINYL ALCOHOL 15 ML BOTTLE OP SCH ×4 (09:29→20:28)
[2017-10-05] MEDS: PROSTAT (PYXIS) 30 ML UDC GT SCH ×2 (09:29→17:26)
[2017-10-05] MEDS: MIDODRINE HCL (5MG) 5 MG TABLET GT SCH ×2 (09:29→20:27)
[2017-10-05] MEDS: RIVAROXABAN 15 MG TABLET GT SCH ×2 (09:31→20:28)
[2017-10-05] MEDS: Z GUARD REMEDY 4 OZ OINT TP SCH ×2 (10:15→20:28)
[2017-10-05] MEDS: NYSTATIN TOP POWDER 15 GM BOTTLE TP SCH ×2 (10:15→20:28)
[2017-10-05] MEDS: HYDROGEN PEROXIDE 480 ML BOTTLE TP SCH ×2 (10:15→20:28)
--- NOTE | 2017-10-05 10:40 | NUR ---
Seen by Dr. Macario. Notified him that according to night charge nurse, pt was having SOB last night and was given Ativan via the G-tube which took a while to be effective. Dr. Macario ordered to give Ativan 0.5 mg IV push q 6 hours PRN for respiratory distress and to give Ativan 0.5 mg tab via GT if there is no IV access available. Notified pt's mother.
[2017-10-05] MEDS ORDERED: LORAZEPAM INJ 2 MG/ML VIAL IVP PRN (12:00)
--- NOTE | 2017-10-05 12:00 | NUR ---
Late entry for 10/04/17 Notified pt's mother that pt was tachycardic and is being given IV fluids for hydration.
--- NOTE | 2017-10-05 19:15 | NUR ---
Seen and examined by NIKI Ashford. She ordered to give IV ATBs Vancomycin and Zosyn for a total of 2 weeks for both.
[2017-10-05] MEDS: VANCOMYCIN 1 GM in IV D5W 250ml IV SCH (20:00)
[2017-10-05 20:07] VITALS: BP 122/63
[2017-10-05] MEDS: MULTIVIT, IRON, MIN NO. 8, FA 1 TAB GT SCH (20:28)
[2017-10-05] MEDS: LANOLIN/MIN OIL/PETROLAT,WHT 3.5 GM TUBE EACHEYE SCH (21:30)
[2017-10-05] MEDS: SENNOSIDES 8.6 MG TABLET GT SCH (21:30)
[2017-10-06] MEDS: PIPERACILLIN /TAZOBACTAM 3.375 G in IV D5W 50 ML IV SCH ×3 (04:38→21:56)
[2017-10-06] MEDS: BACLOFEN (10 MG) 10 MG TABLET GT SCH ×2 (05:12→17:02)
[2017-10-06] MEDS: OMEPRAZOLE 10 MG CAPSULE.DR GT SCH (05:12)
[2017-10-06] MEDS: GLUCERNA 1.2 1,000 ML BOTTLE GT PRN (06:09)
[2017-10-06 07:35] VITALS: BP 121/74
[2017-10-06] MEDS: IPRATROPIUM NEB FS 0.5 MG/2.5 ML AMPUL.NEB IH SCH ×2 (08:11→20:35)
[2017-10-06] MEDS: FUROSEMIDE SOLN 40 MG/5 ML UDC GT SCH (08:24)
[2017-10-06] MEDS: POLYVINYL ALCOHOL 15 ML BOTTLE OP SCH ×4 (08:24→21:40)
[2017-10-06] MEDS: PROSTAT (PYXIS) 30 ML UDC GT SCH ×2 (08:24→16:53)
[2017-10-06] MEDS: MIDODRINE HCL (5MG) 5 MG TABLET GT SCH ×2 (08:24→21:40)
[2017-10-06] MEDS: SIMETHICONE SUSP 40 MG/0.6 ML BOTTLE GT SCH ×2 (08:24→21:39)
[2017-10-06] MEDS: RIVAROXABAN 15 MG TABLET GT SCH ×2 (08:24→21:40)
[2017-10-06] MEDS: HYDROGEN PEROXIDE 480 ML BOTTLE TP SCH ×2 (08:24→21:40)
[2017-10-06] MEDS: Z GUARD REMEDY 4 OZ OINT TP SCH ×2 (08:24→21:40)
[2017-10-06] MEDS: NYSTATIN TOP POWDER 15 GM BOTTLE TP SCH ×2 (08:24→21:40)
[2017-10-06] MEDS: FERROUS SULFATE - FOR SA ONLY 330 MG/7.5 ML UDC GT SCH ×2 (08:25→16:53)
[2017-10-06] MEDS: LACTULOSE 20 G/30 ML UDC GT SCH (08:25)
[2017-10-06] MEDS: KCL 20 MEQ/15 ML GT SCH (08:26)
[2017-10-06] MEDS: VANCOMYCIN 1 GM in IV D5W 250ml IV SCH (20:46)
[2017-10-06] MEDS: SENNOSIDES 8.6 MG TABLET GT SCH (21:40)
[2017-10-06] MEDS: MULTIVIT, IRON, MIN NO. 8, FA 1 TAB GT SCH (21:40)
[2017-10-06] MEDS: LANOLIN/MIN OIL/PETROLAT,WHT 3.5 GM TUBE EACHEYE SCH (21:40)
[2017-10-06 22:20] VITALS: BP 104/65
[2017-10-07] MEDS: PIPERACILLIN /TAZOBACTAM 3.375 G in IV D5W 50 ML IV SCH ×3 (04:27→21:50)
[2017-10-07] MEDS: OMEPRAZOLE 10 MG CAPSULE.DR GT SCH (05:14)
[2017-10-07] MEDS: BACLOFEN (10 MG) 10 MG TABLET GT SCH ×2 (05:14→16:55)
[2017-10-07] MEDS: GLUCERNA 1.2 1,000 ML BOTTLE GT PRN (05:54)
[2017-10-07 06:53] LABS: BASOPHILS % (AUTO) 0.4 % (0.0-2.0); HEMATOCRIT 26 % (33-45); HEMOGLOBIN 8.4 g/dL (11.5-14.8); LYMPHOCYTES # (AUTO) 2.1 /CMM (0.8-4.8); LYMPHOCYTES % (AUTO) 34.1 % (20.0-44.0); MEAN CORPUSCULAR HEMOGLOBIN 26 PG (26.0-33.0); MEAN CORPUSCULAR HGB CONC 32 g/dl (31.0-36.0); MEAN CORPUSCULAR VOLUME 80 fL (82-100); MONOCYTES # (AUTO) 0.6 /CMM (0.1-1.30); MONOCYTES % (AUTO) 9.7 % (2.0-12.0); NEUTROPHILS % (AUTO) 49.8 % (43.0-81.0); PLATELET COUNT (AUTO) 242 /CMM (150-450); RDW COEFFICIENT OF VARIATION 20.1 (11.5-15.0); RED BLOOD CELL COUNT(AUTO) 3.29 MIL/uL (4.0-5.2); WHITE BLOOD COUNT (AUTO) 6.1 K/uL (4.3-11.0)
[2017-10-07] MEDS: IPRATROPIUM NEB FS 0.5 MG/2.5 ML AMPUL.NEB IH SCH ×2 (07:25→19:34)
[2017-10-07 07:30] VITALS: BP 93/48
[2017-10-07] MEDS: LACTULOSE 20 G/30 ML UDC GT SCH (08:03)
[2017-10-07] MEDS: FERROUS SULFATE - FOR SA ONLY 330 MG/7.5 ML UDC GT SCH ×2 (08:04→16:54)
[2017-10-07] MEDS: HYDROGEN PEROXIDE 480 ML BOTTLE TP SCH ×2 (08:05→20:48)
[2017-10-07] MEDS: KCL 20 MEQ/15 ML GT SCH (08:05)
[2017-10-07] MEDS: FUROSEMIDE SOLN 40 MG/5 ML UDC GT SCH (08:05)
[2017-10-07] MEDS: MIDODRINE HCL (5MG) 5 MG TABLET GT SCH ×2 (08:37→20:46)
[2017-10-07] MEDS: NYSTATIN TOP POWDER 15 GM BOTTLE TP SCH ×2 (08:37→20:49)
[2017-10-07] MEDS: PROSTAT (PYXIS) 30 ML UDC GT SCH ×2 (08:37→16:55)
[2017-10-07] MEDS: RIVAROXABAN 15 MG TABLET GT SCH ×2 (08:37→20:47)
[2017-10-07] MEDS: SIMETHICONE SUSP 40 MG/0.6 ML BOTTLE GT SCH ×2 (08:37→20:46)
[2017-10-07] MEDS: POLYVINYL ALCOHOL 15 ML BOTTLE OP SCH ×4 (08:37→20:48)
[2017-10-07] MEDS: Z GUARD REMEDY 4 OZ OINT TP SCH ×2 (08:38→20:49)
--- NOTE | 2017-10-07 14:56 | NUR ---
RECEIVED PT TRACHED ON VENT SETTINGS NOTED. ORAL CARE AND TRACH SUCTIONED LARGE AMOUNT OF THICK AND THIN YELLOW SECRETIONS. AMBU BAG AT BEDSIDE. VENT ALARMS SET AND AUDIBLE. WILL CONTINUE TO MONITOR PT.
--- NOTE | 2017-10-07 19:30 | NUR ---
RN NOTES RECEIVED PATIENT IN BED AWAKE, NONVERBAL. NO ACUTE DISTRESS NOTED. NO SIGNS OF PAIN NOTED. TRACH PATENT, INTACT. TRACH SETTINGS ORDERED. GT PATENT, INTACT; GTF ONGOING ORDERED. PATIENT TOLERATING GTF. HOB RAISED. ASPIRATION PRECAUTION MAINTAINED. IV SITE PATENT, INTACT; FLUSHED. ON LOW BED WITH BILATERAL SIDE RAILS UP. CALL MULLER WITHIN EASY REACH. WILL CONTINUE TO MONITOR.
[2017-10-07] MEDS: VANCOMYCIN 1 GM in IV D5W 250ml IV SCH (19:39)
[2017-10-07 20:14] LABS: CREATININE 0.5 mg/dL (0.6-1.3)
[2017-10-07] MEDS: MULTIVIT, IRON, MIN NO. 8, FA 1 TAB GT SCH (20:46)
[2017-10-07] MEDS: SENNOSIDES 8.6 MG TABLET GT SCH (21:51)
[2017-10-07] MEDS: LANOLIN/MIN OIL/PETROLAT,WHT 3.5 GM TUBE EACHEYE SCH (21:51)
[2017-10-07 23:25] VITALS: BP 120/85
[2017-10-07] MEDS: ACETAMINOPHEN 650 MG/20 ML UDC- FOR SA PATIENTS ONLY GT PRN (23:31)
[2017-10-08] MEDS: GLUCERNA 1.2 1,000 ML BOTTLE GT PRN (03:08)
[2017-10-08] MEDS: PIPERACILLIN /TAZOBACTAM 3.375 G in IV D5W 50 ML IV SCH ×3 (05:19→21:51)
[2017-10-08] MEDS: BACLOFEN (10 MG) 10 MG TABLET GT SCH ×2 (05:20→18:06)
[2017-10-08] MEDS: OMEPRAZOLE 10 MG CAPSULE.DR GT SCH (05:20)
--- NOTE | 2017-10-08 06:45 | NUR ---
PATIENT WITH EYES CLOSED, EASILY AROUSABLE. RESPIRATIONS EVEN. NO SIGNS OF PAIN NOTED. DUE MEDS GIVEN WITH NO ASE NOTED. NEEDS ATTENDED. KEPT CLEAN, DRY, AND COMFORTABLE. SAFETY PRECAUTIONS AND COMFORT MEASURES IN PLACE. WILL GIVE REPORT TO DAY SHIFT FOR CONTINUITY OF CARE.
[2017-10-08] MEDS: IPRATROPIUM NEB FS 0.5 MG/2.5 ML AMPUL.NEB IH SCH ×2 (07:12→19:41)
[2017-10-08 07:23] VITALS: BP 110/56
[2017-10-08] MEDS: FERROUS SULFATE - FOR SA ONLY 330 MG/7.5 ML UDC GT SCH ×2 (08:17→17:00)
[2017-10-08] MEDS: PROSTAT (PYXIS) 30 ML UDC GT SCH ×2 (08:17→17:00)
[2017-10-08] MEDS: SIMETHICONE SUSP 40 MG/0.6 ML BOTTLE GT SCH ×2 (08:17→20:30)
[2017-10-08] MEDS: KCL 20 MEQ/15 ML GT SCH (08:17)
[2017-10-08] MEDS: LACTULOSE 20 G/30 ML UDC GT SCH (08:17)
[2017-10-08] MEDS: MIDODRINE HCL (5MG) 5 MG TABLET GT SCH ×2 (08:17→20:30)
[2017-10-08] MEDS: FUROSEMIDE SOLN 40 MG/5 ML UDC GT SCH (08:17)
[2017-10-08] MEDS: NYSTATIN TOP POWDER 15 GM BOTTLE TP SCH ×2 (08:18→20:31)
[2017-10-08] MEDS: Z GUARD REMEDY 4 OZ OINT TP SCH ×2 (08:18→20:31)
[2017-10-08] MEDS: RIVAROXABAN 15 MG TABLET GT SCH ×2 (08:18→20:31)
[2017-10-08] MEDS: POLYVINYL ALCOHOL 15 ML BOTTLE OP SCH ×4 (08:18→20:31)
[2017-10-08] MEDS: HYDROGEN PEROXIDE 480 ML BOTTLE TP SCH ×2 (08:18→20:31)
[2017-10-08] MEDS: VANCOMYCIN 1 GM in IV D5W 250ml IV SCH (20:00)
[2017-10-08] MEDS: MULTIVIT, IRON, MIN NO. 8, FA 1 TAB GT SCH (20:30)
[2017-10-08 21:02] VITALS: BP 113/78
[2017-10-08] MEDS: SENNOSIDES 8.6 MG TABLET GT SCH (21:17)
[2017-10-08] MEDS: LANOLIN/MIN OIL/PETROLAT,WHT 3.5 GM TUBE EACHEYE SCH (21:17)
[2017-10-09] MEDS: PIPERACILLIN /TAZOBACTAM 3.375 G in IV D5W 50 ML IV SCH ×2 (05:12→13:00)
[2017-10-09] MEDS: BACLOFEN (10 MG) 10 MG TABLET GT SCH ×2 (05:27→17:11)
[2017-10-09] MEDS: OMEPRAZOLE 10 MG CAPSULE.DR GT SCH (05:27)
[2017-10-09] MEDS: IPRATROPIUM NEB FS 0.5 MG/2.5 ML AMPUL.NEB IH SCH ×2 (07:08→19:30)
[2017-10-09 08:05] VITALS: BP 172/75
[2017-10-09] MEDS: FERROUS SULFATE - FOR SA ONLY 330 MG/7.5 ML UDC GT SCH ×2 (08:45→16:58)
[2017-10-09] MEDS: LACTULOSE 20 G/30 ML UDC GT SCH (08:45)
[2017-10-09] MEDS: SIMETHICONE SUSP 40 MG/0.6 ML BOTTLE GT SCH ×2 (08:45→21:32)
[2017-10-09] MEDS: FUROSEMIDE SOLN 40 MG/5 ML UDC GT SCH (08:45)
[2017-10-09] MEDS: MIDODRINE HCL (5MG) 5 MG TABLET GT SCH ×2 (08:45→21:33)
[2017-10-09] MEDS: KCL 20 MEQ/15 ML GT SCH (08:45)
[2017-10-09] MEDS: PROSTAT (PYXIS) 30 ML UDC GT SCH ×2 (08:45→16:58)
[2017-10-09] MEDS: NYSTATIN TOP POWDER 15 GM BOTTLE TP SCH ×2 (08:46→21:33)
[2017-10-09] MEDS: HYDROGEN PEROXIDE 480 ML BOTTLE TP SCH ×2 (08:46→21:33)
[2017-10-09] MEDS: Z GUARD REMEDY 4 OZ OINT TP SCH ×2 (08:46→21:33)
[2017-10-09] MEDS: POLYVINYL ALCOHOL 15 ML BOTTLE OP SCH ×4 (08:46→21:33)
--- NOTE | 2017-10-09 15:59 | NUR ---
PT ANDER'D ON MECHANICAL VENT. TX GIVEN AND NO ADVERSE REACTION NOTED. PT SX T/O SHIFT. PT TRACH PATENT AND SECURE. AMBU BAG AT BEDSIDE. VENT PLUGGED INTO RED OUTLET. ALARMS ARE ON AND AUDIBLE. Addendum: 10/09/17 at 1600 by RADHA FERMIN RT Amended: Links added.
[2017-10-09] MEDS: RIVAROXABAN 10 MG TABLET PO SCH (16:58)
[2017-10-09 19:55] VITALS: BP 112/77
[2017-10-09] MEDS: LANOLIN/MIN OIL/PETROLAT,WHT 3.5 GM TUBE EACHEYE SCH (21:33)
[2017-10-09] MEDS: MULTIVIT, IRON, MIN NO. 8, FA 1 TAB GT SCH (21:33)
[2017-10-09] MEDS: SENNOSIDES 8.6 MG TABLET GT SCH (21:33)
[2017-10-09] MEDS: VANCOMYCIN 1 GM in IV D5W 250ml IV SCH (22:00)
[2017-10-10] MEDS: GLUCERNA 1.2 1,000 ML BOTTLE GT PRN (04:54)
[2017-10-10] MEDS: BACLOFEN (10 MG) 10 MG TABLET GT SCH ×2 (04:54→17:51)
[2017-10-10] MEDS: OMEPRAZOLE 10 MG CAPSULE.DR GT SCH (04:54)
[2017-10-10 07:58] VITALS: BP 105/64
[2017-10-10] MEDS: IPRATROPIUM NEB FS 0.5 MG/2.5 ML AMPUL.NEB IH SCH ×3 (08:05→20:43)
[2017-10-10] MEDS: FERROUS SULFATE - FOR SA ONLY 330 MG/7.5 ML UDC GT SCH ×2 (09:50→16:41)
[2017-10-10] MEDS: LACTULOSE 20 G/30 ML UDC GT SCH (09:50)
[2017-10-10] MEDS: KCL 20 MEQ/15 ML GT SCH (09:50)
[2017-10-10] MEDS: FUROSEMIDE SOLN 40 MG/5 ML UDC GT SCH (09:50)
[2017-10-10] MEDS: Z GUARD REMEDY 4 OZ OINT TP SCH ×2 (09:51→21:10)
[2017-10-10] MEDS: PROSTAT (PYXIS) 30 ML UDC GT SCH ×2 (09:51→16:41)
[2017-10-10] MEDS: HYDROGEN PEROXIDE 480 ML BOTTLE TP SCH ×2 (09:51→21:10)
[2017-10-10] MEDS: SIMETHICONE SUSP 40 MG/0.6 ML BOTTLE GT SCH ×2 (09:51→21:10)
[2017-10-10] MEDS: MIDODRINE HCL (5MG) 5 MG TABLET GT SCH ×2 (09:51→21:10)
[2017-10-10] MEDS: POLYVINYL ALCOHOL 15 ML BOTTLE OP SCH ×4 (09:51→21:10)
[2017-10-10] MEDS: PIPERACILLIN /TAZOBACTAM 3.375 G in IV D5W 50 ML IV SCH ×2 (12:50→22:07)
[2017-10-10] MEDS: RIVAROXABAN 10 MG TABLET PO SCH (16:41)
[2017-10-10 20:19] VITALS: BP 95/63
[2017-10-10] MEDS: VANCOMYCIN 1 GM in IV D5W 250ml IV SCH (20:48)
[2017-10-10] MEDS: MULTIVIT, IRON, MIN NO. 8, FA 1 TAB GT SCH (21:10)
[2017-10-10] MEDS: LANOLIN/MIN OIL/PETROLAT,WHT 3.5 GM TUBE EACHEYE SCH (21:11)
[2017-10-10] MEDS: SENNOSIDES 8.6 MG TABLET GT SCH (21:11)
--- NOTE | 2017-10-11 04:59 | NUR ---
PT ANDER'D ON MECHANICAL VENT. TX GIVEN AND NO ADVERSE REACTION NOTED. SX DONE T/O SHIFT. PT ANDER PATENT AND SECURE. AMBU BAG AT BEDSIDE. VENT PLUGGED INTO RED OUTLET. ALARMS ARE ON AND AUDIBLE. WILL CONTINUE TO MONITOR. Addendum: 10/11/17 at 0459 by RADHA FERMIN RT Amended: Links added.
[2017-10-11] MEDS: GLUCERNA 1.2 1,000 ML BOTTLE GT PRN (05:12)
[2017-10-11] MEDS: BACLOFEN (10 MG) 10 MG TABLET GT SCH ×2 (05:12→17:10)
[2017-10-11] MEDS: OMEPRAZOLE 10 MG CAPSULE.DR GT SCH (05:12)
[2017-10-11] MEDS: PIPERACILLIN /TAZOBACTAM 3.375 G in IV D5W 50 ML IV SCH ×3 (05:20→21:29)
[2017-10-11] MEDS: IPRATROPIUM NEB FS 0.5 MG/2.5 ML AMPUL.NEB IH SCH ×2 (07:30→20:20)
[2017-10-11 07:41] LABS: BASOPHILS % (AUTO) 0.5 % (0.0-2.0); EOSINOPHILS % (AUTO) 4.4 % (0.0-6.0); HEMATOCRIT 25 % (33-45); LYMPHOCYTES # (AUTO) 2.7 /CMM (0.8-4.8); LYMPHOCYTES % (AUTO) 33.8 % (20.0-44.0); MEAN CORPUSCULAR HEMOGLOBIN 26 PG (26.0-33.0); MEAN CORPUSCULAR HGB CONC 32 g/dl (31.0-36.0); MEAN CORPUSCULAR VOLUME 80 fL (82-100); MONOCYTES # (AUTO) 0.8 /CMM (0.1-1.30); MONOCYTES % (AUTO) 10.1 % (2.0-12.0); NEUTROPHILS # (AUTO) 4.1 /CMM (1.8-8.9); NEUTROPHILS % (AUTO) 51.2 % (43.0-81.0); PLATELET COUNT (AUTO) 238 /CMM (150-450); RDW COEFFICIENT OF VARIATION 20.8 (11.5-15.0); RED BLOOD CELL COUNT(AUTO) 3.15 MIL/uL (4.0-5.2); WHITE BLOOD COUNT (AUTO) 8.1 K/uL (4.3-11.0)
[2017-10-11 07:50] VITALS: BP 124/72
[2017-10-11] MEDS: FERROUS SULFATE - FOR SA ONLY 330 MG/7.5 ML UDC GT SCH ×2 (09:00→12:17)
[2017-10-11] MEDS: MIDODRINE HCL (5MG) 5 MG TABLET GT SCH ×2 (09:00→21:04)
[2017-10-11] MEDS: KCL 20 MEQ/15 ML GT SCH (09:00)
[2017-10-11] MEDS: SIMETHICONE SUSP 40 MG/0.6 ML BOTTLE GT SCH ×2 (09:00→21:04)
[2017-10-11] MEDS: PROSTAT (PYXIS) 30 ML UDC GT SCH ×2 (09:00→17:09)
[2017-10-11] MEDS: LACTULOSE 20 G/30 ML UDC GT SCH (09:00)
[2017-10-11] MEDS: FUROSEMIDE SOLN 40 MG/5 ML UDC GT SCH (09:00)
[2017-10-11] MEDS: POLYVINYL ALCOHOL 15 ML BOTTLE OP SCH ×4 (09:00→21:04)
[2017-10-11] MEDS: HYDROGEN PEROXIDE 480 ML BOTTLE TP SCH ×2 (09:00→21:04)
[2017-10-11] MEDS: Z GUARD REMEDY 4 OZ OINT TP SCH ×2 (09:00→21:05)
--- NOTE | 2017-10-11 09:20 | NUR ---
PT TRACH'D ON MECHANICAL VENT. TXS GIVEN AND NO ADVERSE REACTION NOTED. SX DONE T/O SHIFT. PT TRACH PATENT AND SECURE. AMBU BAG AT BEDSIDE. VENT PLUGGED INTO RED OUTLET. ALARMS ARE ON AND AUDIBLE. WILL CONTINUE TO MONITOR.
[2017-10-11] MEDS: RIVAROXABAN 10 MG TABLET PO SCH (17:10)
[2017-10-11] MEDS: VANCOMYCIN 1 GM in IV D5W 250ml IV SCH (20:18)
[2017-10-11 20:23] VITALS: BP 95/49
[2017-10-11] MEDS: MULTIVIT, IRON, MIN NO. 8, FA 1 TAB GT SCH (21:04)
[2017-10-11] MEDS: LANOLIN/MIN OIL/PETROLAT,WHT 3.5 GM TUBE EACHEYE SCH (21:05)
[2017-10-11] MEDS: SENNOSIDES 8.6 MG TABLET GT SCH (21:05)
--- NOTE | 2017-10-11 23:00 | NUR ---
RN NOTE NOTED RT FOOT IV SITE LEAKING. DC'D THE IV SITE, SECURED WITH 2X2 GAUZE. REINSERTED NEW IV LINE IN PEACE #20 G IN PEACE WITH GOOD BACK FLOW OF BLOOD. BY CHARGE NURSE MERRILL FROM ICU.
[2017-10-12] MEDS: PIPERACILLIN /TAZOBACTAM 3.375 G in IV D5W 50 ML IV SCH ×3 (05:18→21:41)
[2017-10-12] MEDS: BACLOFEN (10 MG) 10 MG TABLET GT SCH ×2 (05:42→17:38)
[2017-10-12] MEDS: GLUCERNA 1.2 1,000 ML BOTTLE GT PRN (05:42)
[2017-10-12] MEDS: OMEPRAZOLE 10 MG CAPSULE.DR GT SCH (05:42)
--- NOTE | 2017-10-12 05:45 | NUR ---
PT RECEIVED ON VENT VIA TRACH SECURED WITH TRACH TIE, SETTINGS CHARTED. AMBU AT BEDSIDE. ALARMS SET AND AUDIBLE. DISCONNECT ALARMS CHECKED. VENT PLUGGED IN TO RED OUTLET. TOLERATING SETTINGS AT THIS TIME Addendum: 10/12/17 at 0546 by MELISA GARCIA RT Amended: Links added.
[2017-10-12] MEDS: IPRATROPIUM NEB FS 0.5 MG/2.5 ML AMPUL.NEB IH SCH ×2 (07:32→20:30)
[2017-10-12 07:56] VITALS: BP 134/73
[2017-10-12] MEDS: MIDODRINE HCL (5MG) 5 MG TABLET GT SCH ×2 (09:00→21:11)
[2017-10-12] MEDS: SIMETHICONE SUSP 40 MG/0.6 ML BOTTLE GT SCH ×2 (09:45→21:11)
[2017-10-12] MEDS: LACTULOSE 20 G/30 ML UDC GT SCH (09:46)
[2017-10-12] MEDS: Z GUARD REMEDY 4 OZ OINT TP SCH ×2 (09:46→21:12)
[2017-10-12] MEDS: KCL 20 MEQ/15 ML GT SCH (09:46)
[2017-10-12] MEDS: PROSTAT (PYXIS) 30 ML UDC GT SCH ×2 (09:46→17:38)
[2017-10-12] MEDS: HYDROGEN PEROXIDE 480 ML BOTTLE TP SCH ×2 (09:46→21:12)
[2017-10-12] MEDS: POLYVINYL ALCOHOL 15 ML BOTTLE OP SCH ×4 (09:46→21:11)
[2017-10-12] MEDS: FUROSEMIDE SOLN 40 MG/5 ML UDC GT SCH (09:46)
[2017-10-12] MEDS: FERROUS SULFATE - FOR SA ONLY 330 MG/7.5 ML UDC GT SCH ×2 (09:46→17:38)
[2017-10-12] MEDS: RIVAROXABAN 10 MG TABLET GT SCH (17:41)
[2017-10-12] MEDS ORDERED: IV NS 0.9% 1,000 ML IV PRN (18:00)
[2017-10-12 19:57] VITALS: BP 96/69
[2017-10-12] MEDS: VANCOMYCIN 1 GM in IV D5W 250ml IV SCH (20:31)
[2017-10-12] MEDS: MULTIVIT, IRON, MIN NO. 8, FA 1 TAB GT SCH (21:11)
[2017-10-12] MEDS: SENNOSIDES 8.6 MG TABLET GT SCH (21:12)
[2017-10-12] MEDS: LANOLIN/MIN OIL/PETROLAT,WHT 3.5 GM TUBE EACHEYE SCH (21:12)
[2017-10-12 22:08] VITALS: BP 96/69
--- NOTE | 2017-10-12 23:34 | NUR ---
PT RECEIVED ON VENT VIA TRACH SECURED WITH TRACH TIE, SETTINGS CHARTED. AMBU AT BEDSIDE. ALARMS SET AND AUDIBLE. DISCONNECT ALARMS CHECKED. VENT PLUGGED IN TO RED OUTLET. TOLERATING SETTINGS AT THIS TIME Addendum: 10/12/17 at 2334 by MELISA GARCIA RT Amended: Links added.
[2017-10-13] MEDS: PIPERACILLIN /TAZOBACTAM 3.375 G in IV D5W 50 ML IV SCH ×2 (05:08→12:33)
[2017-10-13] MEDS: OMEPRAZOLE 10 MG CAPSULE.DR GT SCH (05:51)
[2017-10-13] MEDS: BACLOFEN (10 MG) 10 MG TABLET GT SCH ×2 (05:51→17:36)
[2017-10-13] MEDS: IPRATROPIUM NEB FS 0.5 MG/2.5 ML AMPUL.NEB IH SCH ×2 (07:35→20:17)
[2017-10-13 08:02] VITALS: BP 93/57
[2017-10-13] MEDS: Z GUARD REMEDY 4 OZ OINT TP SCH ×2 (09:00→21:13)
[2017-10-13] MEDS: HYDROGEN PEROXIDE 480 ML BOTTLE TP SCH ×2 (09:00→21:13)
[2017-10-13] MEDS: LACTULOSE 20 G/30 ML UDC GT SCH (09:09)
[2017-10-13] MEDS: FERROUS SULFATE - FOR SA ONLY 330 MG/7.5 ML UDC GT SCH ×2 (09:09→17:35)
[2017-10-13] MEDS: FUROSEMIDE SOLN 40 MG/5 ML UDC GT SCH (09:10)
[2017-10-13] MEDS: SIMETHICONE SUSP 40 MG/0.6 ML BOTTLE GT SCH ×2 (09:10→21:12)
[2017-10-13] MEDS: KCL 20 MEQ/15 ML GT SCH (09:10)
[2017-10-13] MEDS: PROSTAT (PYXIS) 30 ML UDC GT SCH ×2 (09:11→17:36)
[2017-10-13] MEDS: POLYVINYL ALCOHOL 15 ML BOTTLE OP SCH ×4 (09:11→21:13)
[2017-10-13] MEDS: MIDODRINE HCL (5MG) 5 MG TABLET GT SCH ×2 (09:11→21:13)
[2017-10-13] MEDS: ONDANSETRON 4 MG TAB.RAPDIS GT PRN (11:17)
--- NOTE | 2017-10-13 13:57 | NUR ---
SW left a message for both resident's sister and mother on 10/11/2017 regarding upcoming IDT meeting on Sunday October 15, 2017 from 12:30-1:30PM. SW has not heard back.
[2017-10-13] MEDS: RIVAROXABAN 10 MG TABLET GT SCH (17:36)
[2017-10-13 19:00] VITALS: BP 101/64
[2017-10-13] MEDS: SENNOSIDES 8.6 MG TABLET GT SCH (21:13)
[2017-10-13] MEDS: LANOLIN/MIN OIL/PETROLAT,WHT 3.5 GM TUBE EACHEYE SCH (21:13)
[2017-10-13] MEDS: MULTIVIT, IRON, MIN NO. 8, FA 1 TAB GT SCH (21:13)
[2017-10-14] MEDS: BACLOFEN (10 MG) 10 MG TABLET GT SCH ×2 (05:34→17:22)
[2017-10-14] MEDS: OMEPRAZOLE 10 MG CAPSULE.DR GT SCH (05:34)
[2017-10-14] MEDS: GLUCERNA 1.2 1,000 ML BOTTLE GT PRN (06:00)
--- NOTE | 2017-10-14 06:11 | NUR ---
Pt completed dose of Vancomycin and Zosyn for cellulitis.Still with groin redness treatment of Nystatin powder continued.
[2017-10-14 07:06] LABS: BASOPHILS % (AUTO) 0.4 % (0.0-2.0); EOSINOPHILS % (AUTO) 4.4 % (0.0-6.0); HEMATOCRIT 28 % (33-45); LYMPHOCYTES # (AUTO) 1.8 /CMM (0.8-4.8); LYMPHOCYTES % (AUTO) 39.9 % (20.0-44.0); MEAN CORPUSCULAR HEMOGLOBIN 26 PG (26.0-33.0); MEAN CORPUSCULAR HGB CONC 32 g/dl (31.0-36.0); MEAN CORPUSCULAR VOLUME 79 fL (82-100); MONOCYTES # (AUTO) 0.4 /CMM (0.1-1.30); MONOCYTES % (AUTO) 8.8 % (2.0-12.0); NEUTROPHILS # (AUTO) 2.1 /CMM (1.8-8.9); NEUTROPHILS % (AUTO) 46.5 % (43.0-81.0); PLATELET COUNT (AUTO) 237 /CMM (150-450); RDW COEFFICIENT OF VARIATION 20.6 (11.5-15.0); RED BLOOD CELL COUNT(AUTO) 3.52 MIL/uL (4.0-5.2); WHITE BLOOD COUNT (AUTO) 4.6 K/uL (4.3-11.0)
[2017-10-14] MEDS: IPRATROPIUM NEB FS 0.5 MG/2.5 ML AMPUL.NEB IH SCH ×2 (07:40→19:30)
[2017-10-14 08:20] VITALS: BP 104/67
[2017-10-14] MEDS: FUROSEMIDE SOLN 40 MG/5 ML UDC GT SCH (09:00)
[2017-10-14] MEDS: PROSTAT (PYXIS) 30 ML UDC GT SCH ×2 (09:00→17:21)
[2017-10-14] MEDS: FERROUS SULFATE - FOR SA ONLY 330 MG/7.5 ML UDC GT SCH ×2 (09:00→17:21)
[2017-10-14] MEDS: NYSTATIN TOP POWDER 15 GM BOTTLE TP SCH ×2 (09:00→20:45)
[2017-10-14] MEDS: KCL 20 MEQ/15 ML GT SCH (09:00)
[2017-10-14] MEDS: MIDODRINE HCL (5MG) 5 MG TABLET GT SCH ×2 (09:00→20:45)
[2017-10-14] MEDS: LACTULOSE 20 G/30 ML UDC GT SCH (09:00)
[2017-10-14] MEDS: Z GUARD REMEDY 4 OZ OINT TP SCH ×2 (09:00→20:45)
[2017-10-14] MEDS: HYDROGEN PEROXIDE 480 ML BOTTLE TP SCH ×2 (09:00→20:45)
[2017-10-14] MEDS: SIMETHICONE SUSP 40 MG/0.6 ML BOTTLE GT SCH ×2 (09:00→20:45)
[2017-10-14] MEDS: POLYVINYL ALCOHOL 15 ML BOTTLE OP SCH ×4 (09:00→20:45)
--- NOTE | 2017-10-14 09:22 | NUR ---
CBC result relayed to ,no new orders noted and continue the same.
[2017-10-14] MEDS: RIVAROXABAN 10 MG TABLET GT SCH (17:22)
[2017-10-14 19:41] VITALS: BP 103/69
[2017-10-14] MEDS: MULTIVIT, IRON, MIN NO. 8, FA 1 TAB GT SCH (20:45)
[2017-10-14] MEDS: SENNOSIDES 8.6 MG TABLET GT SCH (22:54)
[2017-10-14] MEDS: LANOLIN/MIN OIL/PETROLAT,WHT 3.5 GM TUBE EACHEYE SCH (22:54)
--- NOTE | 2017-10-15 03:07 | NUR ---
Patient noted with increased WOB and respiration,HR 160's,looks agitated.repositioned not effective.Ativan 0.5 mg Iv given as ordered.Will continue to monitor.
--- NOTE | 2017-10-15 04:30 | NUR ---
Hr still in 130's no respiratory distress,calm.Temp 97.5.Kept comfortable needs attended.Will continue to monitor.
[2017-10-15] MEDS: OMEPRAZOLE 10 MG CAPSULE.DR GT SCH (05:03)
[2017-10-15] MEDS: BACLOFEN (10 MG) 10 MG TABLET GT SCH ×2 (05:03→17:08)
[2017-10-15] MEDS: ACETAMINOPHEN 650 MG/20 ML UDC- FOR SA PATIENTS ONLY GT PRN (05:04)
[2017-10-15] MEDS: GLUCERNA 1.2 1,000 ML BOTTLE GT PRN (05:05)
[2017-10-15] MEDS: IPRATROPIUM NEB FS 0.5 MG/2.5 ML AMPUL.NEB IH SCH ×2 (07:29→20:12)
[2017-10-15 07:32] VITALS: BP_SYST 102; BP_SYST 123; BP_DIAS 60; BP_DIAS 88
[2017-10-15] MEDS: SIMETHICONE SUSP 40 MG/0.6 ML BOTTLE GT SCH ×2 (09:00→21:13)
[2017-10-15] MEDS: KCL 20 MEQ/15 ML GT SCH (09:00)
[2017-10-15] MEDS: HYDROGEN PEROXIDE 480 ML BOTTLE TP SCH ×2 (09:00→21:14)
[2017-10-15] MEDS: NYSTATIN TOP POWDER 15 GM BOTTLE TP SCH ×2 (09:00→21:14)
[2017-10-15] MEDS: MIDODRINE HCL (5MG) 5 MG TABLET GT SCH ×2 (09:00→21:14)
[2017-10-15] MEDS: PROSTAT (PYXIS) 30 ML UDC GT SCH ×2 (09:00→16:56)
[2017-10-15] MEDS: POLYVINYL ALCOHOL 15 ML BOTTLE OP SCH ×4 (09:00→21:14)
[2017-10-15] MEDS: FUROSEMIDE SOLN 40 MG/5 ML UDC GT SCH (09:00)
[2017-10-15] MEDS: LACTULOSE 20 G/30 ML UDC GT SCH (09:00)
[2017-10-15] MEDS: Z GUARD REMEDY 4 OZ OINT TP SCH ×2 (09:00→21:14)
[2017-10-15] MEDS: FERROUS SULFATE - FOR SA ONLY 330 MG/7.5 ML UDC GT SCH ×2 (09:00→16:56)
--- NOTE | 2017-10-15 14:42 | NUR ---
INTERDISCIPLINARY PLAN OF CARE CONFERENCE was held today. No family was able to attend. Dr. Macario and the interdisciplinary team discussed the current plan of care in detail. Current orders as well as treatments and medications were reviewed. Pharmacy noted that there are 2 Ativan orders (one for IV and GT) and order was clarified (give GT if IV not available). Resident to get an EKG and Chem 7. No other orders were given.
[2017-10-15] MEDS: RIVAROXABAN 10 MG TABLET GT SCH (16:56)
--- NOTE | 2017-10-15 18:07 | NUR ---
RT NOTE PT REMAINS IN STABLE CONDITION. PT MECHANICALLY VENTILATED VIA TRACHEOSTOMY TUBE. VENT SETTINGS PRESCRIBED. ALARMS SET PER PROTOCOL AND AUDIBLE. TRACH MIDLINE AND SECURE. CUFF INFLATED BY BARREL CAP SETTER. VENT PLUGGED IN TO RED OUTLET. AMBU BAG AT BED SIDE. NO DISTRESS NOTED AT MOMENT.
--- NOTE | 2017-10-15 19:03 | NUR ---
Seen and examined by Coby Pabon NP for Dr. Macario. NNO given.
[2017-10-15 20:09] VITALS: BP 116/73
[2017-10-15] MEDS: SENNOSIDES 8.6 MG TABLET GT SCH (21:14)
[2017-10-15] MEDS: LANOLIN/MIN OIL/PETROLAT,WHT 3.5 GM TUBE EACHEYE SCH (21:14)
[2017-10-15] MEDS: MULTIVIT, IRON, MIN NO. 8, FA 1 TAB GT SCH (21:14)
[2017-10-16] MEDS: BACLOFEN (10 MG) 10 MG TABLET GT SCH ×2 (05:42→18:25)
[2017-10-16] MEDS: OMEPRAZOLE 10 MG CAPSULE.DR GT SCH (05:42)
[2017-10-16] MEDS: GLUCERNA 1.2 1,000 ML BOTTLE GT PRN (05:45)
[2017-10-16 07:02] LABS: CALCIUM, SERUM 10.1 mg/dL (8.5-10.1); CREATININE 0.4 mg/dL (0.6-1.3); POTASSIUM 3.7 mmol/L (3.5-5.1)
[2017-10-16 07:44] VITALS: BP 96/59
[2017-10-16] MEDS: IPRATROPIUM NEB FS 0.5 MG/2.5 ML AMPUL.NEB IH SCH ×2 (08:11→19:57)
[2017-10-16] MEDS: FUROSEMIDE SOLN 40 MG/5 ML UDC GT SCH (08:25)
[2017-10-16] MEDS: FERROUS SULFATE - FOR SA ONLY 330 MG/7.5 ML UDC GT SCH ×2 (08:25→16:56)
[2017-10-16] MEDS: KCL 20 MEQ/15 ML GT SCH (08:25)
[2017-10-16] MEDS: LACTULOSE 20 G/30 ML UDC GT SCH (08:25)
[2017-10-16] MEDS: SIMETHICONE SUSP 40 MG/0.6 ML BOTTLE GT SCH ×2 (08:25→21:02)
[2017-10-16] MEDS: POLYVINYL ALCOHOL 15 ML BOTTLE OP SCH ×4 (08:26→21:02)
[2017-10-16] MEDS: MIDODRINE HCL (5MG) 5 MG TABLET GT SCH ×2 (08:26→21:02)
[2017-10-16] MEDS: PROSTAT (PYXIS) 30 ML UDC GT SCH ×2 (08:26→16:56)
[2017-10-16] MEDS: NYSTATIN TOP POWDER 15 GM BOTTLE TP SCH ×2 (08:27→21:02)
[2017-10-16] MEDS: HYDROGEN PEROXIDE 480 ML BOTTLE TP SCH ×2 (08:27→21:02)
[2017-10-16] MEDS: Z GUARD REMEDY 4 OZ OINT TP SCH ×2 (08:27→21:02)
--- NOTE | 2017-10-16 12:31 | NUR ---
Reported to Dr. Nichole Dugan the result of EKG and BMP collected today. It was mentioned to MD that Dr. Macario ordered it to evaluate hydration status because of episodes of tachycardia. New order given to hold Lasix 20 mg x 4 days. Notified patient's mother Sabrina of new order.
[2017-10-16] MEDS: RIVAROXABAN 10 MG TABLET GT SCH (16:57)
[2017-10-16 19:25] VITALS: BP 103/62
[2017-10-16] MEDS: MULTIVIT, IRON, MIN NO. 8, FA 1 TAB GT SCH (21:02)
[2017-10-16] MEDS: SENNOSIDES 8.6 MG TABLET GT SCH (21:03)
[2017-10-16] MEDS: LANOLIN/MIN OIL/PETROLAT,WHT 3.5 GM TUBE EACHEYE SCH (21:03)
--- NOTE | 2017-10-17 02:54 | NUR ---
PATIENT RECEIVED TRACHED ON MECHANICAL VENTILATION. VENT PLUGGED INTO RED OUTLET. AMBU BAG/ BACK UP TRACH @ BEDSIDE. TX GIVEN, NO ADVERSE REACTIONS NOTED. SX DONE T/O SHIFT, TRACH SECURED AND PATENT. ALARMS ON AND AUDIBLE. HME/NEBULIZER REPLACED. PATIENT STABLE. Addendum: 10/17/17 at 0254 by MARLIN AGUILAR RT Amended: Links added.
[2017-10-17] MEDS: BACLOFEN (10 MG) 10 MG TABLET GT SCH ×2 (05:34→18:13)
[2017-10-17] MEDS: OMEPRAZOLE 10 MG CAPSULE.DR GT SCH (05:34)
[2017-10-17] MEDS: GLUCERNA 1.2 1,000 ML BOTTLE GT PRN (05:52)
[2017-10-17] MEDS: IPRATROPIUM NEB FS 0.5 MG/2.5 ML AMPUL.NEB IH SCH ×2 (07:40→20:29)
--- NOTE | 2017-10-17 07:42 | NUR ---
Female trach pt received on mechanical vent. Pt trach is secure. Vent is plugged into a red outlet, alarms are set and audible, and BVM is at bedside. Addendum: 10/17/17 at 0743 by NADINE RIOS RT Amended: Links added.
[2017-10-17 08:00] VITALS: BP 94/49
[2017-10-17] MEDS: PROSTAT (PYXIS) 30 ML UDC GT SCH ×2 (08:31→16:32)
[2017-10-17] MEDS: MIDODRINE HCL (5MG) 5 MG TABLET GT SCH ×2 (08:31→21:08)
[2017-10-17] MEDS: FERROUS SULFATE - FOR SA ONLY 330 MG/7.5 ML UDC GT SCH ×2 (08:31→16:32)
[2017-10-17] MEDS: KCL 20 MEQ/15 ML GT SCH (08:31)
[2017-10-17] MEDS: SIMETHICONE SUSP 40 MG/0.6 ML BOTTLE GT SCH ×2 (08:31→21:08)
[2017-10-17] MEDS: LACTULOSE 20 G/30 ML UDC GT SCH (08:31)
[2017-10-17] MEDS: POLYVINYL ALCOHOL 15 ML BOTTLE OP SCH ×4 (08:32→21:08)
[2017-10-17] MEDS: NYSTATIN TOP POWDER 15 GM BOTTLE TP SCH ×2 (08:32→21:09)
[2017-10-17] MEDS: HYDROGEN PEROXIDE 480 ML BOTTLE TP SCH ×2 (08:32→21:09)
[2017-10-17] MEDS: Z GUARD REMEDY 4 OZ OINT TP SCH ×2 (08:32→21:09)
[2017-10-17] MEDS: RIVAROXABAN 10 MG TABLET GT SCH (16:32)
[2017-10-17 20:04] VITALS: BP 112/56
[2017-10-17] MEDS: MULTIVIT, IRON, MIN NO. 8, FA 1 TAB GT SCH (21:08)
[2017-10-17] MEDS: SENNOSIDES 8.6 MG TABLET GT SCH (21:09)
[2017-10-17] MEDS: LANOLIN/MIN OIL/PETROLAT,WHT 3.5 GM TUBE EACHEYE SCH (21:09)
[2017-10-17 23:06] VITALS: BP 112/56
[2017-10-18] MEDS: OMEPRAZOLE 10 MG CAPSULE.DR GT SCH (05:42)
[2017-10-18] MEDS: BACLOFEN (10 MG) 10 MG TABLET GT SCH ×2 (05:42→17:07)
[2017-10-18 07:20] LABS: BASOPHILS % (AUTO) 0.5 % (0.0-2.0); EOSINOPHILS % (AUTO) 5.8 % (0.0-6.0); HEMATOCRIT 32 % (33-45); HEMOGLOBIN 10.2 g/dL (11.5-14.8); LYMPHOCYTES # (AUTO) 2.2 /CMM (0.8-4.8); LYMPHOCYTES % (AUTO) 44.5 % (20.0-44.0); MEAN CORPUSCULAR HEMOGLOBIN 26 PG (26.0-33.0); MEAN CORPUSCULAR HGB CONC 33 g/dl (31.0-36.0); MEAN CORPUSCULAR VOLUME 80 fL (82-100); MONOCYTES # (AUTO) 0.5 /CMM (0.1-1.30); MONOCYTES % (AUTO) 9.7 % (2.0-12.0); NEUTROPHILS % (AUTO) 39.5 % (43.0-81.0); PLATELET COUNT (AUTO) 226 /CMM (150-450); RDW COEFFICIENT OF VARIATION 20.9 (11.5-15.0); RED BLOOD CELL COUNT(AUTO) 3.93 MIL/uL (4.0-5.2); WHITE BLOOD COUNT (AUTO) 4.9 K/uL (4.3-11.0)
[2017-10-18] MEDS: IPRATROPIUM NEB FS 0.5 MG/2.5 ML AMPUL.NEB IH SCH ×2 (07:53→20:10)
[2017-10-18 08:00] VITALS: BP 118/71
[2017-10-18] MEDS: KCL 20 MEQ/15 ML GT SCH (08:36)
[2017-10-18] MEDS: FERROUS SULFATE - FOR SA ONLY 330 MG/7.5 ML UDC GT SCH ×2 (08:36→16:46)
[2017-10-18] MEDS: SIMETHICONE SUSP 40 MG/0.6 ML BOTTLE GT SCH ×2 (08:36→21:11)
[2017-10-18] MEDS: LACTULOSE 20 G/30 ML UDC GT SCH (08:36)
[2017-10-18] MEDS: Z GUARD REMEDY 4 OZ OINT TP SCH ×2 (08:37→21:11)
[2017-10-18] MEDS: POLYVINYL ALCOHOL 15 ML BOTTLE OP SCH ×4 (08:37→21:11)
[2017-10-18] MEDS: NYSTATIN TOP POWDER 15 GM BOTTLE TP SCH ×2 (08:37→21:11)
[2017-10-18] MEDS: HYDROGEN PEROXIDE 480 ML BOTTLE TP SCH ×2 (08:37→21:11)
[2017-10-18] MEDS: MIDODRINE HCL (5MG) 5 MG TABLET GT SCH ×2 (08:37→21:11)
[2017-10-18] MEDS: PROSTAT (PYXIS) 30 ML UDC GT SCH ×2 (08:37→16:46)
[2017-10-18] MEDS: RIVAROXABAN 10 MG TABLET GT SCH (16:46)
--- NOTE | 2017-10-18 17:35 | NUR ---
CBC result informed to ,no new orders noted.
[2017-10-18 20:11] VITALS: BP 112/77
[2017-10-18] MEDS: LANOLIN/MIN OIL/PETROLAT,WHT 3.5 GM TUBE EACHEYE SCH (21:11)
[2017-10-18] MEDS: SENNOSIDES 8.6 MG TABLET GT SCH (21:11)
[2017-10-18] MEDS: MULTIVIT, IRON, MIN NO. 8, FA 1 TAB GT SCH (21:11)
[2017-10-19 00:06] VITALS: BP 116/74
[2017-10-19] MEDS: BACLOFEN (10 MG) 10 MG TABLET GT SCH ×2 (05:40→18:49)
[2017-10-19] MEDS: OMEPRAZOLE 10 MG CAPSULE.DR GT SCH (05:40)
--- NOTE | 2017-10-19 06:07 | NUR ---
PT RECEIVED ON VENT VIA TRACH SECURED WITH TRACH TIE, SETTINGS CHARTED. AMBU AT BEDSIDE. ALARMS SET AND AUDIBLE. DISCONNECT ALARMS CHECKED. VENT PLUGGED IN TO RED OUTLET. TOLERATING SETTINGS AT THIS TIME Addendum: 10/19/17 at 0607 by MELISA GARCIA RT Amended: Links added.
[2017-10-19] MEDS: IPRATROPIUM NEB FS 0.5 MG/2.5 ML AMPUL.NEB IH SCH ×2 (07:23→20:26)
[2017-10-19 08:11] VITALS: BP 116/69
[2017-10-19] MEDS: FERROUS SULFATE - FOR SA ONLY 330 MG/7.5 ML UDC GT SCH ×2 (09:47→16:24)
[2017-10-19] MEDS: LACTULOSE 20 G/30 ML UDC GT SCH (09:47)
[2017-10-19] MEDS: KCL 20 MEQ/15 ML GT SCH (09:48)
[2017-10-19] MEDS: SIMETHICONE SUSP 40 MG/0.6 ML BOTTLE GT SCH ×2 (09:48→21:04)
[2017-10-19] MEDS: POLYVINYL ALCOHOL 15 ML BOTTLE OP SCH ×4 (09:49→21:05)
[2017-10-19] MEDS: MIDODRINE HCL (5MG) 5 MG TABLET GT SCH ×2 (09:49→21:05)
[2017-10-19] MEDS: PROSTAT (PYXIS) 30 ML UDC GT SCH ×2 (09:49→16:24)
[2017-10-19] MEDS: HYDROGEN PEROXIDE 480 ML BOTTLE TP SCH ×2 (11:00→21:05)
[2017-10-19] MEDS: NYSTATIN TOP POWDER 15 GM BOTTLE TP SCH ×2 (11:00→21:05)
[2017-10-19] MEDS: Z GUARD REMEDY 4 OZ OINT TP SCH ×2 (11:00→21:05)
[2017-10-19] MEDS: RIVAROXABAN 10 MG TABLET GT SCH (16:27)
[2017-10-19 19:53] VITALS: BP 98/58
[2017-10-19] MEDS: SENNOSIDES 8.6 MG TABLET GT SCH (21:05)
[2017-10-19] MEDS: MULTIVIT, IRON, MIN NO. 8, FA 1 TAB GT SCH (21:05)
[2017-10-19] MEDS: LANOLIN/MIN OIL/PETROLAT,WHT 3.5 GM TUBE EACHEYE SCH (21:05)
[2017-10-19 22:19] VITALS: BP 98/58
--- NOTE | 2017-10-20 02:21 | NUR ---
PT RECEIVED ON VENT VIA TRACH SECURED WITH TRACH TIE, SETTINGS CHARTED. AMBU AT BEDSIDE. ALARMS SET AND AUDIBLE. DISCONNECT ALARMS CHECKED. VENT PLUGGED IN TO RED OUTLET. TOLERATING SETTINGS AT THIS TIME Addendum: 10/20/17 at 0222 by MELISA GARCIA RT Amended: Links added.
[2017-10-20] MEDS: OMEPRAZOLE 10 MG CAPSULE.DR GT SCH (06:00)
[2017-10-20] MEDS: BACLOFEN (10 MG) 10 MG TABLET GT SCH ×2 (06:00→17:34)
[2017-10-20] MEDS: IPRATROPIUM NEB FS 0.5 MG/2.5 ML AMPUL.NEB IH SCH ×2 (07:22→19:30)
[2017-10-20 07:55] VITALS: BP 122/74
--- NOTE | 2017-10-20 08:53 | NUR ---
RT RECD PT TRACHED INTACT AND SECURED ON MECH VENT EUGENIO VENT SETTINGS. ALARMS ON AND AUDIBLE VENT PLUGGED IN RED OUTLET BAG AND MASK AT HOB. TX GIVEN EUGENIO WELL. SX THICK YELLOW SECRETIONS. WILL CONTINUE TO MONITOR
[2017-10-20] MEDS: HYDROGEN PEROXIDE 480 ML BOTTLE TP SCH ×2 (09:00→21:06)
[2017-10-20] MEDS: Z GUARD REMEDY 4 OZ OINT TP SCH ×2 (09:00→21:07)
[2017-10-20] MEDS: NYSTATIN TOP POWDER 15 GM BOTTLE TP SCH ×2 (09:00→21:06)
[2017-10-20] MEDS: LACTULOSE 20 G/30 ML UDC GT SCH (09:00)
[2017-10-20] MEDS: FERROUS SULFATE - FOR SA ONLY 330 MG/7.5 ML UDC GT SCH ×2 (09:16→16:34)
[2017-10-20] MEDS: SIMETHICONE SUSP 40 MG/0.6 ML BOTTLE GT SCH ×2 (09:17→21:04)
[2017-10-20] MEDS: KCL 20 MEQ/15 ML GT SCH (09:17)
[2017-10-20] MEDS: MIDODRINE HCL (5MG) 5 MG TABLET GT SCH ×2 (09:17→21:04)
[2017-10-20] MEDS: POLYVINYL ALCOHOL 15 ML BOTTLE OP SCH ×4 (09:18→21:05)
[2017-10-20] MEDS: PROSTAT (PYXIS) 30 ML UDC GT SCH ×2 (09:18→16:34)
[2017-10-20] MEDS: GLUCERNA 1.2 1,000 ML BOTTLE GT PRN (16:36)
[2017-10-20] MEDS: RIVAROXABAN 10 MG TABLET GT SCH (16:36)
[2017-10-20] MEDS: MULTIVIT, IRON, MIN NO. 8, FA 1 TAB GT SCH (21:04)
[2017-10-20] MEDS: LANOLIN/MIN OIL/PETROLAT,WHT 3.5 GM TUBE EACHEYE SCH (21:07)
[2017-10-20] MEDS: SENNOSIDES 8.6 MG TABLET GT SCH (21:07)
[2017-10-20 22:58] VITALS: BP 108/65
[2017-10-21] MEDS: BACLOFEN (10 MG) 10 MG TABLET GT SCH ×2 (05:17→17:30)
[2017-10-21] MEDS: OMEPRAZOLE 10 MG CAPSULE.DR GT SCH (05:17)
[2017-10-21 07:16] LABS: BASOPHILS % (AUTO) 0.5 % (0.0-2.0); EOSINOPHILS % (AUTO) 4.3 % (0.0-6.0); HEMATOCRIT 29 % (33-45); HEMOGLOBIN 9.5 g/dL (11.5-14.8); LYMPHOCYTES % (AUTO) 44.7 % (20.0-44.0); MEAN CORPUSCULAR HEMOGLOBIN 26 PG (26.0-33.0); MEAN CORPUSCULAR HGB CONC 32 g/dl (31.0-36.0); MEAN CORPUSCULAR VOLUME 80 fL (82-100); MONOCYTES # (AUTO) 0.4 /CMM (0.1-1.30); MONOCYTES % (AUTO) 8.2 % (2.0-12.0); NEUTROPHILS # (AUTO) 1.9 /CMM (1.8-8.9); NEUTROPHILS % (AUTO) 42.3 % (43.0-81.0); PLATELET COUNT (AUTO) 220 /CMM (150-450); RDW COEFFICIENT OF VARIATION 20.6 (11.5-15.0); RED BLOOD CELL COUNT(AUTO) 3.68 MIL/uL (4.0-5.2); WHITE BLOOD COUNT (AUTO) 4.5 K/uL (4.3-11.0)
[2017-10-21] MEDS: IPRATROPIUM NEB FS 0.5 MG/2.5 ML AMPUL.NEB IH SCH ×2 (07:45→19:58)
[2017-10-21 08:00] VITALS: BP 127/81
[2017-10-21] MEDS: MIDODRINE HCL (5MG) 5 MG TABLET GT SCH ×2 (09:00→20:50)
[2017-10-21] MEDS: KCL 20 MEQ/15 ML GT SCH (09:09)
[2017-10-21] MEDS: FERROUS SULFATE - FOR SA ONLY 330 MG/7.5 ML UDC GT SCH ×2 (09:09→17:29)
[2017-10-21] MEDS: LACTULOSE 20 G/30 ML UDC GT SCH (09:09)
[2017-10-21] MEDS: FUROSEMIDE SOLN 40 MG/5 ML UDC GT SCH (09:09)
[2017-10-21] MEDS: SIMETHICONE SUSP 40 MG/0.6 ML BOTTLE GT SCH ×2 (09:09→20:49)
[2017-10-21] MEDS: POLYVINYL ALCOHOL 15 ML BOTTLE OP SCH ×4 (09:10→20:50)
[2017-10-21] MEDS: PROSTAT (PYXIS) 30 ML UDC GT SCH ×2 (09:10→17:29)
[2017-10-21] MEDS: HYDROGEN PEROXIDE 480 ML BOTTLE TP SCH ×2 (09:10→20:50)
[2017-10-21] MEDS: Z GUARD REMEDY 4 OZ OINT TP SCH ×2 (09:11→20:50)
[2017-10-21] MEDS: NYSTATIN TOP POWDER 15 GM BOTTLE TP SCH ×2 (09:11→20:50)
[2017-10-21] MEDS: RIVAROXABAN 10 MG TABLET GT SCH (17:30)
[2017-10-21] MEDS: GLUCERNA 1.2 1,000 ML BOTTLE GT PRN (17:30)
[2017-10-21] MEDS: MULTIVIT, IRON, MIN NO. 8, FA 1 TAB GT SCH (20:50)
[2017-10-21] MEDS: SENNOSIDES 8.6 MG TABLET GT SCH (21:14)
[2017-10-21] MEDS: LANOLIN/MIN OIL/PETROLAT,WHT 3.5 GM TUBE EACHEYE SCH (21:14)
[2017-10-22 00:47] VITALS: BP 93/63
[2017-10-22] MEDS: OMEPRAZOLE 10 MG CAPSULE.DR GT SCH (05:11)
[2017-10-22] MEDS: BACLOFEN (10 MG) 10 MG TABLET GT SCH ×2 (05:11→18:29)
[2017-10-22] MEDS: LACTULOSE 10 G/15 ML UDC (PYXIS) GT PRN (05:11)
[2017-10-22 07:24] VITALS: BP 103/73
[2017-10-22] MEDS: IPRATROPIUM NEB FS 0.5 MG/2.5 ML AMPUL.NEB IH SCH ×2 (08:25→19:21)
[2017-10-22] MEDS: FERROUS SULFATE - FOR SA ONLY 330 MG/7.5 ML UDC GT SCH ×2 (09:28→17:00)
[2017-10-22] MEDS: HYDROGEN PEROXIDE 480 ML BOTTLE TP SCH ×2 (09:28→20:22)
[2017-10-22] MEDS: SIMETHICONE SUSP 40 MG/0.6 ML BOTTLE GT SCH ×2 (09:28→20:22)
[2017-10-22] MEDS: FUROSEMIDE SOLN 40 MG/5 ML UDC GT SCH (09:28)
[2017-10-22] MEDS: KCL 20 MEQ/15 ML GT SCH (09:28)
[2017-10-22] MEDS: MIDODRINE HCL (5MG) 5 MG TABLET GT SCH ×2 (09:28→20:22)
[2017-10-22] MEDS: Z GUARD REMEDY 4 OZ OINT TP SCH ×2 (09:28→20:23)
[2017-10-22] MEDS: PROSTAT (PYXIS) 30 ML UDC GT SCH ×2 (09:28→17:00)
[2017-10-22] MEDS: POLYVINYL ALCOHOL 15 ML BOTTLE OP SCH ×4 (09:28→20:22)
[2017-10-22] MEDS: LACTULOSE 20 G/30 ML UDC GT SCH (09:28)
[2017-10-22] MEDS: NYSTATIN TOP POWDER 15 GM BOTTLE TP SCH ×2 (09:28→20:22)
[2017-10-22] MEDS: GLUCERNA 1.2 1,000 ML BOTTLE GT PRN (14:37)
[2017-10-22] MEDS: RIVAROXABAN 10 MG TABLET GT SCH (17:00)
[2017-10-22] MEDS: MULTIVIT, IRON, MIN NO. 8, FA 1 TAB GT SCH (20:22)
[2017-10-22] MEDS: SENNOSIDES 8.6 MG TABLET GT SCH (21:05)
[2017-10-22] MEDS: LANOLIN/MIN OIL/PETROLAT,WHT 3.5 GM TUBE EACHEYE SCH (21:05)
[2017-10-22 23:50] VITALS: BP 99/59
[2017-10-23] MEDS: BACLOFEN (10 MG) 10 MG TABLET GT SCH ×2 (05:20→17:18)
[2017-10-23] MEDS: OMEPRAZOLE 10 MG CAPSULE.DR GT SCH (05:20)
[2017-10-23] MEDS: IPRATROPIUM NEB FS 0.5 MG/2.5 ML AMPUL.NEB IH SCH ×2 (07:21→19:46)
[2017-10-23] MEDS: LACTULOSE 20 G/30 ML UDC GT SCH (09:58)
[2017-10-23] MEDS: FERROUS SULFATE - FOR SA ONLY 330 MG/7.5 ML UDC GT SCH ×2 (09:58→17:17)
[2017-10-23] MEDS: FUROSEMIDE SOLN 40 MG/5 ML UDC GT SCH (09:58)
[2017-10-23] MEDS: HYDROGEN PEROXIDE 480 ML BOTTLE TP SCH ×2 (09:58→20:08)
[2017-10-23] MEDS: PROSTAT (PYXIS) 30 ML UDC GT SCH ×2 (09:58→17:17)
[2017-10-23] MEDS: NYSTATIN TOP POWDER 15 GM BOTTLE TP SCH ×2 (09:58→20:08)
[2017-10-23] MEDS: SIMETHICONE SUSP 40 MG/0.6 ML BOTTLE GT SCH ×2 (09:58→20:07)
[2017-10-23] MEDS: MIDODRINE HCL (5MG) 5 MG TABLET GT SCH ×2 (09:58→20:08)
[2017-10-23] MEDS: KCL 20 MEQ/15 ML GT SCH (09:58)
[2017-10-23] MEDS: POLYVINYL ALCOHOL 15 ML BOTTLE OP SCH ×4 (09:58→20:08)
[2017-10-23] MEDS: Z GUARD REMEDY 4 OZ OINT TP SCH ×2 (09:59→20:08)
[2017-10-23] MEDS: ZINC OXIDE 30 GM TUBE TP SCH ×4 (09:59→20:08)
[2017-10-23] MEDS: GLUCERNA 1.2 1,000 ML BOTTLE GT PRN (11:42)
[2017-10-23] MEDS: RIVAROXABAN 10 MG TABLET GT SCH (17:18)
[2017-10-23] MEDS: MULTIVIT, IRON, MIN NO. 8, FA 1 TAB GT SCH (20:08)
[2017-10-23 20:30] VITALS: BP 101/68
[2017-10-23] MEDS: LANOLIN/MIN OIL/PETROLAT,WHT 3.5 GM TUBE EACHEYE SCH (21:09)
[2017-10-23] MEDS: SENNOSIDES 8.6 MG TABLET GT SCH (21:09)
[2017-10-24] MEDS: OMEPRAZOLE 10 MG CAPSULE.DR GT SCH (05:15)
[2017-10-24] MEDS: BACLOFEN (10 MG) 10 MG TABLET GT SCH ×2 (05:15→17:39)
[2017-10-24] MEDS: GLUCERNA 1.2 1,000 ML BOTTLE GT PRN (05:15)
[2017-10-24] MEDS: IPRATROPIUM NEB FS 0.5 MG/2.5 ML AMPUL.NEB IH SCH ×2 (07:47→20:02)
[2017-10-24 08:15] VITALS: BP 106/62
[2017-10-24] MEDS: SIMETHICONE SUSP 40 MG/0.6 ML BOTTLE GT SCH ×2 (08:52→20:21)
[2017-10-24] MEDS: KCL 20 MEQ/15 ML GT SCH (08:52)
[2017-10-24] MEDS: FERROUS SULFATE - FOR SA ONLY 330 MG/7.5 ML UDC GT SCH ×2 (08:52→16:30)
[2017-10-24] MEDS: LACTULOSE 20 G/30 ML UDC GT SCH (08:52)
[2017-10-24] MEDS: FUROSEMIDE SOLN 40 MG/5 ML UDC GT SCH (08:52)
[2017-10-24] MEDS: MIDODRINE HCL (5MG) 5 MG TABLET GT SCH ×2 (08:53→20:23)
[2017-10-24] MEDS: POLYVINYL ALCOHOL 15 ML BOTTLE OP SCH ×4 (08:53→20:23)
[2017-10-24] MEDS: PROSTAT (PYXIS) 30 ML UDC GT SCH ×2 (08:53→16:30)
[2017-10-24] MEDS: ZINC OXIDE 30 GM TUBE TP SCH ×4 (09:00→20:24)
[2017-10-24] MEDS: NYSTATIN TOP POWDER 15 GM BOTTLE TP SCH ×2 (09:00→20:23)
[2017-10-24] MEDS: Z GUARD REMEDY 4 OZ OINT TP SCH ×2 (09:00→20:23)
[2017-10-24] MEDS: HYDROGEN PEROXIDE 480 ML BOTTLE TP SCH ×2 (09:00→20:23)
[2017-10-24] MEDS: RIVAROXABAN 10 MG TABLET GT SCH (16:31)
[2017-10-24 18:12] VITALS: BP 106/62
[2017-10-24 20:17] VITALS: BP 113/68
[2017-10-24] MEDS: MULTIVIT, IRON, MIN NO. 8, FA 1 TAB GT SCH (20:23)
[2017-10-24] MEDS: LANOLIN/MIN OIL/PETROLAT,WHT 3.5 GM TUBE EACHEYE SCH (21:38)
[2017-10-24] MEDS: SENNOSIDES 8.6 MG TABLET GT SCH (21:38)
[2017-10-25] MEDS: GLUCERNA 1.2 1,000 ML BOTTLE GT PRN ×2 (04:11→22:39)
[2017-10-25] MEDS: OMEPRAZOLE 10 MG CAPSULE.DR GT SCH (05:51)
[2017-10-25] MEDS: BACLOFEN (10 MG) 10 MG TABLET GT SCH ×2 (05:51→17:44)
[2017-10-25 06:28] LABS: BASOPHILS % (AUTO) 0.5 % (0.0-2.0); EOSINOPHILS % (AUTO) 4.2 % (0.0-6.0); HEMATOCRIT 28 % (33-45); HEMOGLOBIN 8.9 g/dL (11.5-14.8); LYMPHOCYTES # (AUTO) 1.9 /CMM (0.8-4.8); LYMPHOCYTES % (AUTO) 34.2 % (20.0-44.0); MEAN CORPUSCULAR HEMOGLOBIN 26 PG (26.0-33.0); MEAN CORPUSCULAR HGB CONC 32 g/dl (31.0-36.0); MEAN CORPUSCULAR VOLUME 81 fL (82-100); MONOCYTES # (AUTO) 0.6 /CMM (0.1-1.30); MONOCYTES % (AUTO) 10.8 % (2.0-12.0); NEUTROPHILS # (AUTO) 2.9 /CMM (1.8-8.9); NEUTROPHILS % (AUTO) 50.3 % (43.0-81.0); PLATELET COUNT (AUTO) 192 /CMM (150-450); RDW COEFFICIENT OF VARIATION 20.6 (11.5-15.0); RED BLOOD CELL COUNT(AUTO) 3.44 MIL/uL (4.0-5.2); WHITE BLOOD COUNT (AUTO) 5.7 K/uL (4.3-11.0)
[2017-10-25] MEDS: IPRATROPIUM NEB FS 0.5 MG/2.5 ML AMPUL.NEB IH SCH ×2 (07:20→19:30)
[2017-10-25 07:34] VITALS: BP 83/52
[2017-10-25] MEDS: LACTULOSE 20 G/30 ML UDC GT SCH (08:39)
[2017-10-25] MEDS: FERROUS SULFATE - FOR SA ONLY 330 MG/7.5 ML UDC GT SCH ×2 (08:39→17:44)
[2017-10-25] MEDS: FUROSEMIDE SOLN 40 MG/5 ML UDC GT SCH ×2 (08:40→09:00)
[2017-10-25] MEDS: SIMETHICONE SUSP 40 MG/0.6 ML BOTTLE GT SCH ×2 (08:40→20:22)
[2017-10-25] MEDS: KCL 20 MEQ/15 ML GT SCH (08:40)
[2017-10-25] MEDS: MIDODRINE HCL (5MG) 5 MG TABLET GT SCH ×2 (08:41→20:23)
[2017-10-25] MEDS: PROSTAT (PYXIS) 30 ML UDC GT SCH ×2 (08:41→17:44)
[2017-10-25] MEDS: POLYVINYL ALCOHOL 15 ML BOTTLE OP SCH ×4 (08:42→20:23)
[2017-10-25] MEDS: HYDROGEN PEROXIDE 480 ML BOTTLE TP SCH ×2 (08:42→20:23)
[2017-10-25] MEDS: NYSTATIN TOP POWDER 15 GM BOTTLE TP SCH ×2 (08:42→20:23)
[2017-10-25] MEDS: Z GUARD REMEDY 4 OZ OINT TP SCH ×2 (08:43→20:23)
[2017-10-25] MEDS: ZINC OXIDE 30 GM TUBE TP SCH ×4 (08:43→20:24)
[2017-10-25] MEDS: RIVAROXABAN 10 MG TABLET GT SCH (17:44)
--- NOTE | 2017-10-25 18:59 | NUR ---
Reported to NIKI Ashford ID that patient has loose BM at times diarrhea with new order to send stool for C.Diff. Notified resident's mother Sabrina regarding new order.
[2017-10-25 19:53] VITALS: BP 104/65
[2017-10-25] MEDS: MULTIVIT, IRON, MIN NO. 8, FA 1 TAB GT SCH (20:23)
[2017-10-25] MEDS: SENNOSIDES 8.6 MG TABLET GT SCH (22:52)
[2017-10-25] MEDS: LANOLIN/MIN OIL/PETROLAT,WHT 3.5 GM TUBE EACHEYE SCH (22:52)
[2017-10-26] MEDS: BACLOFEN (10 MG) 10 MG TABLET GT SCH ×2 (05:06→18:27)
[2017-10-26] MEDS: OMEPRAZOLE 10 MG CAPSULE.DR GT SCH (05:06)
[2017-10-26] MEDS: LORAZEPAM 0.5 MG TABLET GT PRN ×3 (05:08→17:00)
--- NOTE | 2017-10-26 06:54 | NUR ---
pt was given prn med ativan 0.5 mg for respiratory distress due to hyperventilation, pt was monitored and diogo in an hour, prn med effective, pts HR went to normal rate, and no more hyperventilation noted. continue to monitor pt...
[2017-10-26] MEDS: IPRATROPIUM NEB FS 0.5 MG/2.5 ML AMPUL.NEB IH SCH ×2 (07:21→20:16)
[2017-10-26 07:33] VITALS: BP 142/84
[2017-10-26] MEDS: Z GUARD REMEDY 4 OZ OINT TP SCH ×2 (09:00→20:09)
[2017-10-26] MEDS: SIMETHICONE SUSP 40 MG/0.6 ML BOTTLE GT SCH ×2 (09:00→20:06)
[2017-10-26] MEDS: FERROUS SULFATE - FOR SA ONLY 330 MG/7.5 ML UDC GT SCH ×2 (09:00→17:00)
[2017-10-26] MEDS: ZINC OXIDE 30 GM TUBE TP SCH ×4 (09:00→20:09)
[2017-10-26] MEDS: LACTULOSE 20 G/30 ML UDC GT SCH (09:00)
[2017-10-26] MEDS: KCL 20 MEQ/15 ML GT SCH (09:00)
[2017-10-26] MEDS: POLYVINYL ALCOHOL 15 ML BOTTLE OP SCH ×4 (09:00→20:09)
[2017-10-26] MEDS: HYDROGEN PEROXIDE 480 ML BOTTLE TP SCH ×2 (09:00→20:09)
[2017-10-26] MEDS: NYSTATIN TOP POWDER 15 GM BOTTLE TP SCH ×2 (09:00→20:09)
[2017-10-26] MEDS: PROSTAT (PYXIS) 30 ML UDC GT SCH ×2 (09:00→17:00)
[2017-10-26] MEDS: MIDODRINE HCL (5MG) 5 MG TABLET GT SCH ×2 (09:00→20:08)
[2017-10-26] MEDS: FUROSEMIDE SOLN 40 MG/5 ML UDC GT SCH (09:00)
--- NOTE | 2017-10-26 15:39 | NUR ---
Pt still noted with elevated HR fluctuating from 130-160's. Ativan 0.5mg PRN given still noted with elevated HR. BP 130/67, RR 30, Temp 98.6. Notified Dr. Dugan of pt's condition, order obtained to start pt on IV NS 100cc/hr x 24 hrs for hydration. Pt also placed on isolation d/t pending stool c-diff result, pt still with loose stool. Pt's sister Judith notified of all orders, appreciative of call.
[2017-10-26] MEDS: RIVAROXABAN 10 MG TABLET GT SCH (17:00)
[2017-10-26] MEDS: MULTIVIT, IRON, MIN NO. 8, FA 1 TAB GT SCH (20:08)
[2017-10-26] MEDS: SENNOSIDES 8.6 MG TABLET GT SCH (20:10)
[2017-10-26 20:25] VITALS: BP 133/65
[2017-10-26] MEDS: LANOLIN/MIN OIL/PETROLAT,WHT 3.5 GM TUBE EACHEYE SCH (22:24)
[2017-10-26] MEDS: ONDANSETRON 4 MG TAB.RAPDIS GT PRN (23:48)
[2017-10-27] MEDS: LORAZEPAM 0.5 MG TABLET GT PRN (00:12)
[2017-10-27] MEDS: OMEPRAZOLE 10 MG CAPSULE.DR GT SCH (05:11)
[2017-10-27] MEDS: BACLOFEN (10 MG) 10 MG TABLET GT SCH ×2 (05:11→18:50)
[2017-10-27] MEDS: IPRATROPIUM NEB FS 0.5 MG/2.5 ML AMPUL.NEB IH SCH ×2 (07:16→19:09)
[2017-10-27 07:47] VITALS: BP 102/54
[2017-10-27 07:50] LABS: CALCIUM, SERUM 9.7 mg/dL (8.5-10.1); CREATININE 0.6 mg/dL (0.6-1.3); MAGNESIUM 2.3 mg/dL (1.8-2.4); PHOSPHORUS 2.9 mg/dL (2.5-4.9); POTASSIUM 3.7 mmol/L (3.5-5.1)
[2017-10-27] MEDS: NYSTATIN TOP POWDER 15 GM BOTTLE TP SCH ×2 (09:00→21:18)
[2017-10-27] MEDS: POLYVINYL ALCOHOL 15 ML BOTTLE OP SCH ×4 (09:00→21:16)
[2017-10-27] MEDS: Z GUARD REMEDY 4 OZ OINT TP SCH ×2 (09:00→21:18)
[2017-10-27] MEDS: ZINC OXIDE 30 GM TUBE TP SCH ×4 (09:00→21:18)
[2017-10-27] MEDS: LACTULOSE 20 G/30 ML UDC GT SCH (09:00)
[2017-10-27] MEDS: HYDROGEN PEROXIDE 480 ML BOTTLE TP SCH ×2 (09:00→21:16)
[2017-10-27] MEDS: PROSTAT (PYXIS) 30 ML UDC GT SCH ×2 (09:00→17:00)
[2017-10-27] MEDS: FERROUS SULFATE - FOR SA ONLY 330 MG/7.5 ML UDC GT SCH ×2 (09:00→12:53)
[2017-10-27] MEDS: MIDODRINE HCL (5MG) 5 MG TABLET GT SCH ×2 (09:00→21:16)
[2017-10-27] MEDS: FUROSEMIDE SOLN 40 MG/5 ML UDC GT SCH (09:00)
[2017-10-27] MEDS: KCL 20 MEQ/15 ML GT SCH (09:00)
[2017-10-27] MEDS: SIMETHICONE SUSP 40 MG/0.6 ML BOTTLE GT SCH ×2 (09:00→21:16)
[2017-10-27] MEDS: ONDANSETRON 4 MG TAB.RAPDIS GT PRN (11:34)
[2017-10-27] MEDS: GLUCERNA 1.2 1,000 ML BOTTLE GT PRN (11:34)
[2017-10-27] MEDS: ACETAMINOPHEN 650 MG/20 ML UDC- FOR SA PATIENTS ONLY GT PRN (11:35)
--- NOTE | 2017-10-27 14:00 | NUR ---
Seen and examined by Cm Tenorio, NIKI, NNO given.
[2017-10-27] MEDS: RIVAROXABAN 10 MG TABLET GT SCH (17:00)
--- NOTE | 2017-10-27 19:00 | NUR ---
Notified NIKI Ashford that result for stool for C.Diff is negative. Contact isolation discontinued.
[2017-10-27] MEDS: MULTIVIT, IRON, MIN NO. 8, FA 1 TAB GT SCH (21:16)
[2017-10-27] MEDS: LANOLIN/MIN OIL/PETROLAT,WHT 3.5 GM TUBE EACHEYE SCH (21:18)
[2017-10-27] MEDS: SENNOSIDES 8.6 MG TABLET GT SCH ×2 (21:59→22:00)
--- NOTE | 2017-10-27 22:30 | NUR ---
Received an order from Luna Sandoval NP to do KUB STAT for emesis,will carried out.
[2017-10-27 23:54] VITALS: BP 117/72
--- NOTE | 2017-10-28 03:41 | NUR ---
RT PT shirley remains on [facility] vent on ordered settings.svn tx given inline. trach secure and patent. Addendum: 10/28/17 at 0343 by SAE MERAZ RT Amended: Links added.
[2017-10-28] MEDS: OMEPRAZOLE 10 MG CAPSULE.DR GT SCH (05:04)
[2017-10-28] MEDS: BACLOFEN (10 MG) 10 MG TABLET GT SCH ×2 (05:04→17:36)
--- NOTE | 2017-10-28 06:18 | NUR ---
Pt had no emesis during the shift.Bowel movement loose x 3,good perianal care rendered.Will continue to monitor will endorse.
[2017-10-28 06:55] LABS: BASOPHILS % (AUTO) 0.5 % (0.0-2.0); EOSINOPHILS % (AUTO) 6.5 % (0.0-6.0); HEMATOCRIT 26 % (33-45); HEMOGLOBIN 8.1 g/dL (11.5-14.8); LYMPHOCYTES # (AUTO) 2.5 /CMM (0.8-4.8); LYMPHOCYTES % (AUTO) 43.5 % (20.0-44.0); MEAN CORPUSCULAR HEMOGLOBIN 26 PG (26.0-33.0); MEAN CORPUSCULAR HGB CONC 32 g/dl (31.0-36.0); MEAN CORPUSCULAR VOLUME 81 fL (82-100); MONOCYTES # (AUTO) 0.8 /CMM (0.1-1.30); MONOCYTES % (AUTO) 13.8 % (2.0-12.0); NEUTROPHILS # (AUTO) 2.1 /CMM (1.8-8.9); NEUTROPHILS % (AUTO) 35.7 % (43.0-81.0); PLATELET COUNT (AUTO) 177 /CMM (150-450); RDW COEFFICIENT OF VARIATION 20.5 (11.5-15.0); RED BLOOD CELL COUNT(AUTO) 3.17 MIL/uL (4.0-5.2); WHITE BLOOD COUNT (AUTO) 5.8 K/uL (4.3-11.0)
[2017-10-28] MEDS: IPRATROPIUM NEB FS 0.5 MG/2.5 ML AMPUL.NEB IH SCH ×2 (07:41→20:07)
[2017-10-28 07:46] VITALS: BP 104/53
[2017-10-28] MEDS: LACTULOSE 20 G/30 ML UDC GT SCH (09:00)
[2017-10-28] MEDS: FERROUS SULFATE - FOR SA ONLY 330 MG/7.5 ML UDC GT SCH ×2 (09:11→17:36)
[2017-10-28] MEDS: HYDROGEN PEROXIDE 480 ML BOTTLE TP SCH ×2 (09:12→21:05)
[2017-10-28] MEDS: FUROSEMIDE SOLN 40 MG/5 ML UDC GT SCH (09:12)
[2017-10-28] MEDS: MIDODRINE HCL (5MG) 5 MG TABLET GT SCH ×2 (09:12→21:05)
[2017-10-28] MEDS: SIMETHICONE SUSP 40 MG/0.6 ML BOTTLE GT SCH ×2 (09:12→21:04)
[2017-10-28] MEDS: PROSTAT (PYXIS) 30 ML UDC GT SCH ×2 (09:12→17:36)
[2017-10-28] MEDS: POLYVINYL ALCOHOL 15 ML BOTTLE OP SCH ×4 (09:12→21:05)
[2017-10-28] MEDS: KCL 20 MEQ/15 ML GT SCH (09:12)
[2017-10-28] MEDS: ZINC OXIDE 30 GM TUBE TP SCH ×4 (09:13→21:05)
[2017-10-28] MEDS: Z GUARD REMEDY 4 OZ OINT TP SCH ×2 (09:13→21:05)
--- NOTE | 2017-10-28 17:14 | NUR ---
PATIENT RECEIVED ON VENT. VENT IS PLUGGED INTO THE RED OUTLET W AMBUBAG BY BEDSIDE. AIRWAY IS PATENT. LARGE WHITE, THICK SECRETIONS NOTED. NO DISTRESS NOTED T/O SHIFT. Addendum: 10/28/17 at 1715 by SONIA ARAUJO RT Amended: Links added.
[2017-10-28] MEDS: RIVAROXABAN 10 MG TABLET GT SCH (17:36)
[2017-10-28] MEDS: GLUCERNA 1.2 1,000 ML BOTTLE GT PRN (18:33)
[2017-10-28] MEDS: MULTIVIT, IRON, MIN NO. 8, FA 1 TAB GT SCH (21:05)
[2017-10-28] MEDS: SENNOSIDES 8.6 MG TABLET GT SCH (21:07)
[2017-10-28] MEDS: LANOLIN/MIN OIL/PETROLAT,WHT 3.5 GM TUBE EACHEYE SCH (21:07)
--- NOTE | 2017-10-28 21:13 | NUR ---
SEEN BY NIKI GARG NO NEW ORDER.
[2017-10-29 00:56] VITALS: BP 105/64
[2017-10-29] MEDS: GLUCERNA 1.2 1,000 ML BOTTLE GT PRN ×2 (05:20→10:40)
[2017-10-29] MEDS: OMEPRAZOLE 10 MG CAPSULE.DR GT SCH (05:20)
[2017-10-29] MEDS: BACLOFEN (10 MG) 10 MG TABLET GT SCH ×2 (05:20→18:00)
[2017-10-29 07:24] VITALS: BP 144/81
[2017-10-29] MEDS: IPRATROPIUM NEB FS 0.5 MG/2.5 ML AMPUL.NEB IH SCH ×2 (07:27→19:58)
[2017-10-29] MEDS: LACTULOSE 20 G/30 ML UDC GT SCH (08:23)
[2017-10-29] MEDS: FUROSEMIDE SOLN 40 MG/5 ML UDC GT SCH (08:23)
[2017-10-29] MEDS: PROSTAT (PYXIS) 30 ML UDC GT SCH ×2 (08:23→17:59)
[2017-10-29] MEDS: Z GUARD REMEDY 4 OZ OINT TP SCH ×2 (08:23→21:07)
[2017-10-29] MEDS: FERROUS SULFATE - FOR SA ONLY 330 MG/7.5 ML UDC GT SCH ×2 (08:23→17:59)
[2017-10-29] MEDS: MIDODRINE HCL (5MG) 5 MG TABLET GT SCH ×2 (08:23→21:07)
[2017-10-29] MEDS: POLYVINYL ALCOHOL 15 ML BOTTLE OP SCH ×4 (08:23→21:07)
[2017-10-29] MEDS: HYDROGEN PEROXIDE 480 ML BOTTLE TP SCH ×2 (08:23→21:07)
[2017-10-29] MEDS: SIMETHICONE SUSP 40 MG/0.6 ML BOTTLE GT SCH ×2 (08:23→21:07)
[2017-10-29] MEDS: KCL 20 MEQ/15 ML GT SCH (08:23)
[2017-10-29] MEDS: ZINC OXIDE 30 GM TUBE TP SCH ×4 (08:24→21:07)
[2017-10-29] MEDS: RIVAROXABAN 10 MG TABLET GT SCH (18:00)
[2017-10-29 19:33] VITALS: BP 113/65
[2017-10-29] MEDS: SENNOSIDES 8.6 MG TABLET GT SCH (21:07)
[2017-10-29] MEDS: MULTIVIT, IRON, MIN NO. 8, FA 1 TAB GT SCH (21:07)
[2017-10-29] MEDS: LANOLIN/MIN OIL/PETROLAT,WHT 3.5 GM TUBE EACHEYE SCH (21:07)
[2017-10-30] MEDS: OMEPRAZOLE 10 MG CAPSULE.DR GT SCH (05:07)
[2017-10-30] MEDS: GLUCERNA 1.2 1,000 ML BOTTLE GT PRN (05:07)
[2017-10-30] MEDS: BACLOFEN (10 MG) 10 MG TABLET GT SCH ×2 (05:07→17:14)
[2017-10-30 07:31] VITALS: BP 102/75
[2017-10-30] MEDS: IPRATROPIUM NEB FS 0.5 MG/2.5 ML AMPUL.NEB IH SCH ×2 (07:31→08:05)
[2017-10-30] MEDS: LACTULOSE 20 G/30 ML UDC GT SCH (09:00)
[2017-10-30] MEDS: FERROUS SULFATE - FOR SA ONLY 330 MG/7.5 ML UDC GT SCH ×2 (09:26→17:14)
[2017-10-30] MEDS: SIMETHICONE SUSP 40 MG/0.6 ML BOTTLE GT SCH ×2 (09:27→20:49)
[2017-10-30] MEDS: FUROSEMIDE SOLN 40 MG/5 ML UDC GT SCH (09:27)
[2017-10-30] MEDS: PROSTAT (PYXIS) 30 ML UDC GT SCH ×2 (09:27→17:14)
[2017-10-30] MEDS: POLYVINYL ALCOHOL 15 ML BOTTLE OP SCH ×4 (09:27→20:49)
[2017-10-30] MEDS: HYDROGEN PEROXIDE 480 ML BOTTLE TP SCH ×2 (09:27→20:49)
[2017-10-30] MEDS: KCL 20 MEQ/15 ML GT SCH (09:27)
[2017-10-30] MEDS: Z GUARD REMEDY 4 OZ OINT TP SCH ×2 (09:27→20:49)
[2017-10-30] MEDS: MIDODRINE HCL (5MG) 5 MG TABLET GT SCH ×2 (09:27→20:49)
[2017-10-30] MEDS: ZINC OXIDE 30 GM TUBE TP SCH ×4 (09:28→20:49)
--- NOTE | 2017-10-30 17:07 | NUR ---
RT NOTE: PATIENT RECEIVED TRACHED ON MECHANICAL VENT. ALARMS VERIFIED AND AUDIBLE. SUCTIONED AND LAVAGED MOD-LARGE AMOUNT OF THICK JOHN SECRETIONS. VENT PLUGGED INTO RED OUTLET. NEW TRACH AND AMBU BAG AT [facility].
[2017-10-30] MEDS: RIVAROXABAN 10 MG TABLET GT SCH (17:14)
[2017-10-30 19:36] VITALS: BP 126/52
[2017-10-30] MEDS: MULTIVIT, IRON, MIN NO. 8, FA 1 TAB GT SCH (20:49)
[2017-10-30] MEDS: SENNOSIDES 8.6 MG TABLET GT SCH (21:06)
[2017-10-30] MEDS: LANOLIN/MIN OIL/PETROLAT,WHT 3.5 GM TUBE EACHEYE SCH (21:06)
[2017-10-31] MEDS: OMEPRAZOLE 10 MG CAPSULE.DR GT SCH (05:08)
[2017-10-31] MEDS: BACLOFEN (10 MG) 10 MG TABLET GT SCH ×2 (05:08→18:37)
[2017-10-31] MEDS: GLUCERNA 1.2 1,000 ML BOTTLE GT PRN (05:09)
[2017-10-31] MEDS: IPRATROPIUM NEB FS 0.5 MG/2.5 ML AMPUL.NEB IH SCH ×2 (07:24→19:30)
[2017-10-31 07:42] VITALS: BP 90/58
[2017-10-31] MEDS: LACTULOSE 20 G/30 ML UDC GT SCH (09:00)
[2017-10-31] MEDS: FUROSEMIDE SOLN 40 MG/5 ML UDC GT SCH (09:00)
[2017-10-31] MEDS: FERROUS SULFATE - FOR SA ONLY 330 MG/7.5 ML UDC GT SCH ×2 (09:54→17:50)
[2017-10-31] MEDS: KCL 20 MEQ/15 ML GT SCH (09:55)
[2017-10-31] MEDS: MIDODRINE HCL (5MG) 5 MG TABLET GT SCH ×2 (09:57→20:13)
[2017-10-31] MEDS: SIMETHICONE SUSP 40 MG/0.6 ML BOTTLE GT SCH ×2 (09:57→20:13)
[2017-10-31] MEDS: POLYVINYL ALCOHOL 15 ML BOTTLE OP SCH ×4 (09:58→20:14)
[2017-10-31] MEDS: PROSTAT (PYXIS) 30 ML UDC GT SCH ×2 (09:58→17:50)
[2017-10-31] MEDS: Z GUARD REMEDY 4 OZ OINT TP SCH ×2 (10:10→20:14)
[2017-10-31] MEDS: HYDROGEN PEROXIDE 480 ML BOTTLE TP SCH ×2 (10:10→20:14)
[2017-10-31] MEDS: ZINC OXIDE 30 GM TUBE TP SCH ×4 (10:10→20:14)
[2017-10-31] MEDS: RIVAROXABAN 10 MG TABLET GT SCH (16:00)
[2017-10-31 20:06] VITALS: BP 126/77
[2017-10-31] MEDS: MULTIVIT, IRON, MIN NO. 8, FA 1 TAB GT SCH (20:13)
[2017-10-31] MEDS: LORAZEPAM 0.5 MG TABLET GT PRN (21:00)
--- NOTE | 2017-10-31 21:00 | NUR ---
nurses notes: After Pt was cleaned up,turned and repositioned, Pt got an episode of hyperventilation and elevated heart rate of 150 to 170 per min. prn med given ativan 0.5, pt is monitored hr went down to 100 to 120 per min, continue to monitored pt, charges nurse informed.
[2017-10-31] MEDS: LANOLIN/MIN OIL/PETROLAT,WHT 3.5 GM TUBE EACHEYE SCH (22:12)
[2017-10-31] MEDS: SENNOSIDES 8.6 MG TABLET GT SCH (22:12)
--- NOTE | 2017-11-01 01:30 | NUR ---
nurses notes: Pt is noted to have N/V, prn meds given zofran 4mg given as per ordered, pt is monitored for anymore episode of N/V.
[2017-11-01] MEDS: ONDANSETRON 4 MG TAB.RAPDIS GT PRN (01:42)
--- NOTE | 2017-11-01 02:13 | NUR ---
pt received on vent via trach secured with trach tie, settings as charted. ambu bag at bedside. alarms set and audible. disconnect alarms checked. vent plugged in red outlet. pt showing increased hr at this time Addendum: 11/01/17 at 0213 by MELISA GARCIA RT Amended: Links added.
--- NOTE | 2017-11-01 03:00 | NUR ---
nurses notes: After pt was turned and reposition again, pt is having another episode of hyperventilation and elevated HR, pt is monitored closely for 15 min and condition still persist, given another dose of prn med ativan 0.5mg, and pt is closely monitored, about 10 min, HR went down and no more hyperventlation noted,continue to monitored pt for ant KATRIN.
[2017-11-01] MEDS: LORAZEPAM 0.5 MG TABLET GT PRN (03:49)
[2017-11-01] MEDS: OMEPRAZOLE 10 MG CAPSULE.DR GT SCH (05:20)
[2017-11-01] MEDS: GLUCERNA 1.2 1,000 ML BOTTLE GT PRN (05:20)
[2017-11-01] MEDS: BACLOFEN (10 MG) 10 MG TABLET GT SCH ×2 (05:20→17:57)
[2017-11-01 07:35] LABS: BASOPHILS % (AUTO) 0.2 % (0.0-2.0); HEMATOCRIT 25 % (33-45); HEMOGLOBIN 7.9 g/dL (11.5-14.8); LYMPHOCYTES # (AUTO) 2.9 /CMM (0.8-4.8); LYMPHOCYTES % (AUTO) 18.2 % (20.0-44.0); MEAN CORPUSCULAR HEMOGLOBIN 25 PG (26.0-33.0); MEAN CORPUSCULAR HGB CONC 32 g/dl (31.0-36.0); MEAN CORPUSCULAR VOLUME 79 fL (82-100); MONOCYTES # (AUTO) 0.9 /CMM (0.1-1.30); MONOCYTES % (AUTO) 5.8 % (2.0-12.0); NEUTROPHILS # (AUTO) 12.1 /CMM (1.8-8.9); NEUTROPHILS % (AUTO) 74.8 % (43.0-81.0); PLATELET COUNT (AUTO) 199 /CMM (150-450); RED BLOOD CELL COUNT(AUTO) 3.15 MIL/uL (4.0-5.2); WHITE BLOOD COUNT (AUTO) 16.2 K/uL (4.3-11.0)
[2017-11-01 07:46] VITALS: BP 90/60
[2017-11-01] MEDS: IPRATROPIUM NEB FS 0.5 MG/2.5 ML AMPUL.NEB IH SCH ×2 (08:09→20:02)
[2017-11-01] MEDS: LACTULOSE 20 G/30 ML UDC GT SCH (09:00)
[2017-11-01] MEDS: Z GUARD REMEDY 4 OZ OINT TP SCH ×2 (09:00→20:20)
[2017-11-01] MEDS: FERROUS SULFATE - FOR SA ONLY 330 MG/7.5 ML UDC GT SCH ×2 (09:00→16:17)
[2017-11-01] MEDS: POLYVINYL ALCOHOL 15 ML BOTTLE OP SCH ×4 (09:00→20:20)
[2017-11-01] MEDS: HYDROGEN PEROXIDE 480 ML BOTTLE TP SCH ×2 (09:00→20:20)
[2017-11-01] MEDS: SIMETHICONE SUSP 40 MG/0.6 ML BOTTLE GT SCH ×2 (09:00→20:19)
[2017-11-01] MEDS: KCL 20 MEQ/15 ML GT SCH (09:00)
[2017-11-01] MEDS: ZINC OXIDE 30 GM TUBE TP SCH ×4 (09:00→20:20)
[2017-11-01] MEDS: FUROSEMIDE SOLN 40 MG/5 ML UDC GT SCH (09:00)
[2017-11-01] MEDS: MIDODRINE HCL (5MG) 5 MG TABLET GT SCH ×2 (09:00→20:19)
[2017-11-01] MEDS: PROSTAT (PYXIS) 30 ML UDC GT SCH ×2 (09:00→16:17)
--- NOTE | 2017-11-01 12:12 | NUR ---
CBC result informed to and ordered UA,C&S for increase WBC.New orders noted and carried out.
[2017-11-01 15:44] LABS: APPEARANCE,URINE CLEAR (CLEAR); BILIRUBIN,URINE NEGATIVE (NEGATIVE); BLOOD, URINE NEGATIVE Ery/uL (NEGATIVE); COLOR,URINE YELLOW (YELLOW); KETONES,URINE NEGATIVE (NEGATIVE); LEUKOCYTE ESTERASE ,URINE NEGATIVE (NEGATIVE); NITRITE, URINE NEGATIVE (NEGATIVE); PH,URINE 6.5 (5.0-8.0); PROTEIN,URINE NEGATIVE (NEGATIVE); UGLUCOSE NEGATIVE (NEGATIVE); UROBILINOGEN,URINE 0.2 EU/dL (0.2)
[2017-11-01] MEDS: RIVAROXABAN 10 MG TABLET GT SCH (16:18)
--- NOTE | 2017-11-01 18:38 | NUR ---
Urine analysis result informed to ,no new orders noted and waiting for the culture result.
[2017-11-01 20:09] VITALS: BP 98/72
[2017-11-01] MEDS: MULTIVIT, IRON, MIN NO. 8, FA 1 TAB GT SCH (20:20)
[2017-11-01] MEDS: LANOLIN/MIN OIL/PETROLAT,WHT 3.5 GM TUBE EACHEYE SCH (22:24)
[2017-11-01] MEDS: SENNOSIDES 8.6 MG TABLET GT SCH (22:24)
[2017-11-02] MEDS: GLUCERNA 1.2 1,000 ML BOTTLE GT PRN
[2017-11-02] MEDS: BACLOFEN (10 MG) 10 MG TABLET GT SCH ×2 (05:03→17:11)
[2017-11-02] MEDS: OMEPRAZOLE 10 MG CAPSULE.DR GT SCH (05:04)
[2017-11-02] MEDS: IPRATROPIUM NEB FS 0.5 MG/2.5 ML AMPUL.NEB IH SCH ×2 (07:47→20:26)
[2017-11-02 08:14] VITALS: BP 119/68
[2017-11-02] MEDS: LACTULOSE 20 G/30 ML UDC GT SCH (09:00)
[2017-11-02] MEDS: HYDROGEN PEROXIDE 480 ML BOTTLE TP SCH ×2 (09:31→20:13)
[2017-11-02] MEDS: SIMETHICONE SUSP 40 MG/0.6 ML BOTTLE GT SCH ×2 (09:31→20:12)
[2017-11-02] MEDS: MIDODRINE HCL (5MG) 5 MG TABLET GT SCH ×2 (09:31→20:13)
[2017-11-02] MEDS: FUROSEMIDE SOLN 40 MG/5 ML UDC GT SCH (09:31)
[2017-11-02] MEDS: POLYVINYL ALCOHOL 15 ML BOTTLE OP SCH ×4 (09:31→20:13)
[2017-11-02] MEDS: KCL 20 MEQ/15 ML GT SCH (09:31)
[2017-11-02] MEDS: FERROUS SULFATE - FOR SA ONLY 330 MG/7.5 ML UDC GT SCH ×2 (09:31→17:11)
[2017-11-02] MEDS: PROSTAT (PYXIS) 30 ML UDC GT SCH ×2 (09:31→17:11)
[2017-11-02] MEDS: Z GUARD REMEDY 4 OZ OINT TP SCH ×2 (09:32→20:13)
[2017-11-02] MEDS: ZINC OXIDE 30 GM TUBE TP SCH ×4 (09:32→20:13)
[2017-11-02] MEDS: RIVAROXABAN 10 MG TABLET GT SCH (17:11)
[2017-11-02] MEDS: MULTIVIT, IRON, MIN NO. 8, FA 1 TAB GT SCH (20:13)
[2017-11-02 20:46] VITALS: BP 109/74
[2017-11-02] MEDS: SENNOSIDES 8.6 MG TABLET GT SCH (22:00)
[2017-11-02] MEDS: LANOLIN/MIN OIL/PETROLAT,WHT 3.5 GM TUBE EACHEYE SCH (22:05)
[2017-11-03] MEDS: GLUCERNA 1.2 1,000 ML BOTTLE GT PRN (00:09)
[2017-11-03] MEDS: BACLOFEN (10 MG) 10 MG TABLET GT SCH ×2 (05:53→17:26)
[2017-11-03] MEDS: OMEPRAZOLE 10 MG CAPSULE.DR GT SCH (05:53)
--- NOTE | 2017-11-03 06:18 | NUR ---
pt received on vent via trach secured with trach tie, settings as charted. ambu bag at bedside. alarms set and audible. disconnect alarms checked. vent plugged in red outlet. tolerating vent settings at this time Addendum: 11/03/17 at 0618 by MELISA GARCIA RT Amended: Links added.
[2017-11-03 07:22] LABS: BASOPHILS % (AUTO) 0.3 % (0.0-2.0); EOSINOPHILS % (AUTO) 4.8 % (0.0-6.0); HEMATOCRIT 27 % (33-45); HEMOGLOBIN 8.7 g/dL (11.5-14.8); LYMPHOCYTES # (AUTO) 2.3 /CMM (0.8-4.8); LYMPHOCYTES % (AUTO) 25.5 % (20.0-44.0); MEAN CORPUSCULAR HEMOGLOBIN 26 PG (26.0-33.0); MEAN CORPUSCULAR HGB CONC 32 g/dl (31.0-36.0); MEAN CORPUSCULAR VOLUME 80 fL (82-100); MONOCYTES # (AUTO) 0.8 /CMM (0.1-1.30); MONOCYTES % (AUTO) 8.4 % (2.0-12.0); NEUTROPHILS # (AUTO) 5.5 /CMM (1.8-8.9); PLATELET COUNT (AUTO) 206 /CMM (150-450); RDW COEFFICIENT OF VARIATION 19.2 (11.5-15.0); RED BLOOD CELL COUNT(AUTO) 3.37 MIL/uL (4.0-5.2)
[2017-11-03] MEDS: IPRATROPIUM NEB FS 0.5 MG/2.5 ML AMPUL.NEB IH SCH ×2 (07:50→19:11)
[2017-11-03 08:10] VITALS: BP 96/60
[2017-11-03] MEDS: FERROUS SULFATE - FOR SA ONLY 330 MG/7.5 ML UDC GT SCH ×2 (08:27→17:25)
[2017-11-03] MEDS: LACTULOSE 20 G/30 ML UDC GT SCH (08:27)
[2017-11-03] MEDS: KCL 20 MEQ/15 ML GT SCH (08:30)
[2017-11-03] MEDS: PROSTAT (PYXIS) 30 ML UDC GT SCH ×2 (08:30→17:25)
[2017-11-03] MEDS: SIMETHICONE SUSP 40 MG/0.6 ML BOTTLE GT SCH ×2 (08:30→21:15)
[2017-11-03] MEDS: FUROSEMIDE SOLN 40 MG/5 ML UDC GT SCH (08:30)
[2017-11-03] MEDS: MIDODRINE HCL (5MG) 5 MG TABLET GT SCH ×2 (08:30→21:15)
[2017-11-03] MEDS: POLYVINYL ALCOHOL 15 ML BOTTLE OP SCH ×4 (08:30→21:15)
[2017-11-03] MEDS: ZINC OXIDE 30 GM TUBE TP SCH ×4 (09:00→21:16)
[2017-11-03] MEDS: HYDROGEN PEROXIDE 480 ML BOTTLE TP SCH ×2 (09:00→21:15)
[2017-11-03] MEDS: Z GUARD REMEDY 4 OZ OINT TP SCH ×2 (09:00→21:16)
--- NOTE | 2017-11-03 16:54 | NUR ---
PATIENT RECEIVED TRACHED ON MECHANICAL VENTILATION. CUFF CHECKED VIA MANAGER BAR. AMBU BAG/BACK UP TRACH @ BEDSIDE. TX GIVEN, NO ADVERSE REACTIONS. SX DONE, TRACH SECURED AND PATENT. ALARMS ON AND AUDIBLE. VENT PLUGGED INTO RED OUTLET. NO DISTRESS NOTED. PATIENT STABLE T/O SHIFT. Addendum: 11/03/17 at 1655 by MARLIN AGUILAR RT Amended: Links added.
[2017-11-03] MEDS: RIVAROXABAN 10 MG TABLET GT SCH (17:26)
--- NOTE | 2017-11-03 18:55 | NUR ---
Seen and examined by NIKI Ashford ID, aware of the CBC result. NO new given.
[2017-11-03] MEDS: MULTIVIT, IRON, MIN NO. 8, FA 1 TAB GT SCH (21:15)
[2017-11-03] MEDS: SENNOSIDES 8.6 MG TABLET GT SCH (21:16)
[2017-11-03] MEDS: LANOLIN/MIN OIL/PETROLAT,WHT 3.5 GM TUBE EACHEYE SCH (21:16)
[2017-11-03 21:49] VITALS: BP 99/58
[2017-11-04] MEDS: GLUCERNA 1.2 1,000 ML BOTTLE GT PRN ×2 (02:07→23:08)
[2017-11-04] MEDS: BACLOFEN (10 MG) 10 MG TABLET GT SCH ×2 (05:08→18:08)
[2017-11-04] MEDS: OMEPRAZOLE 10 MG CAPSULE.DR GT SCH (05:08)
--- NOTE | 2017-11-04 05:15 | NUR ---
PATIENT TRACHED ON MECHANICAL VENT. AMBU BAG & BACK UP TRACH ARE AT BEDSIDE. TX GIVEN, NO ADVERSE REACTIONS. SX DONE, TRACH SECURED AND PATENT. ALARMS ON AND AUDIBLE. VENT PLUGGED INTO RED OUTLET. NO DISTRESS NOTED. PATIENT STABLE. Addendum: 11/04/17 at 0516 by CIRO HERNÁNDEZ RT Amended: Links added.
[2017-11-04 06:31] LABS: EOSINOPHILS % (AUTO) 1.7 % (0.0-6.0); HEMATOCRIT 29 % (33-45); HEMOGLOBIN 9.3 g/dL (11.5-14.8); LYMPHOCYTES # (AUTO) 0.9 /CMM (0.8-4.8); LYMPHOCYTES % (AUTO) 7.4 % (20.0-44.0); MEAN CORPUSCULAR HEMOGLOBIN 26 PG (26.0-33.0); MEAN CORPUSCULAR HGB CONC 32 g/dl (31.0-36.0); MEAN CORPUSCULAR VOLUME 80 fL (82-100); MONOCYTES # (AUTO) 0.2 /CMM (0.1-1.30); MONOCYTES % (AUTO) 1.9 % (2.0-12.0); NEUTROPHILS # (AUTO) 11.3 /CMM (1.8-8.9); PLATELET COUNT (AUTO) 205 /CMM (150-450); RED BLOOD CELL COUNT(AUTO) 3.57 MIL/uL (4.0-5.2); WHITE BLOOD COUNT (AUTO) 12.7 K/uL (4.3-11.0)
[2017-11-04] MEDS: IPRATROPIUM NEB FS 0.5 MG/2.5 ML AMPUL.NEB IH SCH ×2 (07:06→19:18)
[2017-11-04 07:31] VITALS: BP 88/53
[2017-11-04] MEDS: LACTULOSE 20 G/30 ML UDC GT SCH (08:20)
[2017-11-04] MEDS: FERROUS SULFATE - FOR SA ONLY 330 MG/7.5 ML UDC GT SCH ×2 (08:20→16:45)
[2017-11-04] MEDS: PROSTAT (PYXIS) 30 ML UDC GT SCH ×2 (08:21→16:45)
[2017-11-04] MEDS: MIDODRINE HCL (5MG) 5 MG TABLET GT SCH ×2 (08:21→21:01)
[2017-11-04] MEDS: SIMETHICONE SUSP 40 MG/0.6 ML BOTTLE GT SCH ×2 (08:21→21:01)
[2017-11-04] MEDS: POLYVINYL ALCOHOL 15 ML BOTTLE OP SCH ×4 (08:21→21:01)
[2017-11-04] MEDS: FUROSEMIDE SOLN 40 MG/5 ML UDC GT SCH (08:21)
[2017-11-04] MEDS: KCL 20 MEQ/15 ML GT SCH (08:21)
[2017-11-04] MEDS: NYSTATIN TOP POWDER 15 GM BOTTLE TP SCH ×2 (12:02→21:01)
[2017-11-04] MEDS: HYDROGEN PEROXIDE 480 ML BOTTLE TP SCH ×2 (12:02→21:01)
[2017-11-04] MEDS: BACI/NEOM/POLY B OINT PKT 1 UDPKT PACKET TP SCH ×2 (12:02→21:01)
[2017-11-04] MEDS: Z GUARD REMEDY 4 OZ OINT TP SCH ×2 (12:02→21:01)
[2017-11-04] MEDS: ZINC OXIDE 30 GM TUBE TP SCH ×4 (12:02→21:02)
--- NOTE | 2017-11-04 15:10 | NUR ---
Notified Makeda COST CONTROL SUPERVISOR that patient noted with redness on left and right thigh, right lower back. Warm to touch. Pt with Hx of cellulitis. Order obtained for Vanco IV pharmacy dosing x 7 days. Called pt's mother masood Bennett voicemail.
[2017-11-04] MEDS: RIVAROXABAN 10 MG TABLET GT SCH (16:46)
[2017-11-04] MEDS: VANCOMYCIN 1 GM in IV D5W 250ml IV SCH (17:00)
[2017-11-04] MEDS: MULTIVIT, IRON, MIN NO. 8, FA 1 TAB GT SCH (21:01)
[2017-11-04] MEDS: LANOLIN/MIN OIL/PETROLAT,WHT 3.5 GM TUBE EACHEYE SCH (21:02)
[2017-11-04] MEDS: SENNOSIDES 8.6 MG TABLET GT SCH (21:02)
[2017-11-04 23:16] VITALS: BP 108/60
[2017-11-05] MEDS: LORAZEPAM 0.5 MG TABLET GT PRN (04:09)
--- NOTE | 2017-11-05 04:25 | NUR ---
RT Pt remains on [facility] vent on ordered settings. svn treatment given inline. no resp distress noted. trach secure and patent. Addendum: 11/05/17 at 0425 by SAE MERAZ RT Amended: Links added.
[2017-11-05] MEDS: OMEPRAZOLE 10 MG CAPSULE.DR GT SCH (05:17)
[2017-11-05] MEDS: BACLOFEN (10 MG) 10 MG TABLET GT SCH ×2 (05:17→18:10)
[2017-11-05] MEDS: IPRATROPIUM NEB FS 0.5 MG/2.5 ML AMPUL.NEB IH SCH ×2 (07:16→19:10)
[2017-11-05 07:56] VITALS: BP 122/77
--- NOTE | 2017-11-05 08:10 | NUR ---
Seen and examined by Coby Pabon NP for EFREN Serrano given. Resident's upper thigh with redness, continue on ATB Vancomycin IV Q 24 hours for cellulitis. No adverse reaction noted.
[2017-11-05] MEDS: MIDODRINE HCL (5MG) 5 MG TABLET GT SCH ×2 (08:44→21:09)
[2017-11-05] MEDS: SIMETHICONE SUSP 40 MG/0.6 ML BOTTLE GT SCH ×2 (08:52→21:09)
[2017-11-05] MEDS: KCL 20 MEQ/15 ML GT SCH (08:52)
[2017-11-05] MEDS: FERROUS SULFATE - FOR SA ONLY 330 MG/7.5 ML UDC GT SCH ×2 (08:52→17:00)
[2017-11-05] MEDS: FUROSEMIDE SOLN 40 MG/5 ML UDC GT SCH (08:52)
[2017-11-05] MEDS: POLYVINYL ALCOHOL 15 ML BOTTLE OP SCH ×4 (08:52→21:09)
[2017-11-05] MEDS: PROSTAT (PYXIS) 30 ML UDC GT SCH ×2 (08:52→17:00)
[2017-11-05] MEDS: LACTULOSE 20 G/30 ML UDC GT SCH (08:52)
[2017-11-05] MEDS: BACI/NEOM/POLY B OINT PKT 1 UDPKT PACKET TP SCH ×2 (09:00→21:09)
[2017-11-05] MEDS: Z GUARD REMEDY 4 OZ OINT TP SCH ×2 (09:00→21:09)
[2017-11-05] MEDS: ZINC OXIDE 30 GM TUBE TP SCH ×4 (09:00→21:10)
[2017-11-05] MEDS: NYSTATIN TOP POWDER 15 GM BOTTLE TP SCH ×2 (09:00→21:09)
[2017-11-05] MEDS: HYDROGEN PEROXIDE 480 ML BOTTLE TP SCH ×2 (09:00→21:09)
[2017-11-05] MEDS: RIVAROXABAN 10 MG TABLET GT SCH (17:00)
[2017-11-05] MEDS: VANCOMYCIN 1 GM in IV D5W 250ml IV SCH (17:44)
[2017-11-05] MEDS: GLUCERNA 1.2 1,000 ML BOTTLE GT PRN (18:40)
[2017-11-05] MEDS: MULTIVIT, IRON, MIN NO. 8, FA 1 TAB GT SCH (21:09)
[2017-11-05] MEDS: SENNOSIDES 8.6 MG TABLET GT SCH (21:10)
[2017-11-05] MEDS: LANOLIN/MIN OIL/PETROLAT,WHT 3.5 GM TUBE EACHEYE SCH (21:10)
[2017-11-05 22:54] VITALS: BP 105/76
--- NOTE | 2017-11-06 02:52 | NUR ---
RT pt trach on [facility] vent ordered settings. no vent changes during the night. no resp distress noted. trach secure and patent. Addendum: 11/06/17 at 0252 by SAE MERAZ RT Amended: Links added.
[2017-11-06] MEDS: OMEPRAZOLE 10 MG CAPSULE.DR GT SCH (05:10)
[2017-11-06] MEDS: BACLOFEN (10 MG) 10 MG TABLET GT SCH ×2 (05:10→17:12)
[2017-11-06] MEDS: IPRATROPIUM NEB FS 0.5 MG/2.5 ML AMPUL.NEB IH SCH ×2 (07:25→20:21)
[2017-11-06 07:33] VITALS: BP 120/49
[2017-11-06] MEDS: LACTULOSE 20 G/30 ML UDC GT SCH (09:00)
[2017-11-06] MEDS: SIMETHICONE SUSP 40 MG/0.6 ML BOTTLE GT SCH ×2 (09:09→21:13)
[2017-11-06] MEDS: KCL 20 MEQ/15 ML GT SCH (09:09)
[2017-11-06] MEDS: FUROSEMIDE SOLN 40 MG/5 ML UDC GT SCH (09:09)
[2017-11-06] MEDS: FERROUS SULFATE - FOR SA ONLY 330 MG/7.5 ML UDC GT SCH ×2 (09:09→16:16)
[2017-11-06] MEDS: POLYVINYL ALCOHOL 15 ML BOTTLE OP SCH ×4 (09:10→21:14)
[2017-11-06] MEDS: PROSTAT (PYXIS) 30 ML UDC GT SCH ×2 (09:10→16:16)
[2017-11-06] MEDS: MIDODRINE HCL (5MG) 5 MG TABLET GT SCH ×2 (09:10→21:15)
[2017-11-06] MEDS: ZINC OXIDE 30 GM TUBE TP SCH ×2 (09:11→21:14)
[2017-11-06] MEDS: Z GUARD REMEDY 4 OZ OINT TP SCH ×2 (09:11→21:14)
[2017-11-06] MEDS: BACI/NEOM/POLY B OINT PKT 1 UDPKT PACKET TP SCH ×2 (09:11→21:14)
[2017-11-06] MEDS: NYSTATIN TOP POWDER 15 GM BOTTLE TP SCH ×2 (09:11→21:14)
[2017-11-06] MEDS: HYDROGEN PEROXIDE 480 ML BOTTLE TP SCH ×2 (09:11→21:14)
[2017-11-06] MEDS: GLUCERNA 1.2 1,000 ML BOTTLE GT PRN (16:16)
[2017-11-06] MEDS: RIVAROXABAN 10 MG TABLET GT SCH (16:27)
[2017-11-06 17:13] LABS: CREATININE 0.5 mg/dL (0.6-1.3)
[2017-11-06] MEDS: VANCOMYCIN 1 GM in IV D5W 250ml IV SCH (18:00)
--- NOTE | 2017-11-06 18:01 | NUR ---
RESULT OF VANCOMYCIN TROUGH LEVEL (11), BUN (32)AND CREATININE (0.5) FAXED TO [facility].
[2017-11-06 20:38] VITALS: BP 115/65
[2017-11-06] MEDS: MULTIVIT, IRON, MIN NO. 8, FA 1 TAB GT SCH (21:13)
[2017-11-06] MEDS: SENNOSIDES 8.6 MG TABLET GT SCH (21:15)
[2017-11-06] MEDS: LANOLIN/MIN OIL/PETROLAT,WHT 3.5 GM TUBE EACHEYE SCH (21:15)
[2017-11-07] MEDS: OMEPRAZOLE 10 MG CAPSULE.DR GT SCH (05:23)
[2017-11-07] MEDS: BACLOFEN (10 MG) 10 MG TABLET GT SCH ×2 (05:23→18:10)
[2017-11-07] MEDS: GLUCERNA 1.2 1,000 ML BOTTLE GT PRN ×2 (05:23→16:00)
[2017-11-07] MEDS: IPRATROPIUM NEB FS 0.5 MG/2.5 ML AMPUL.NEB IH SCH ×2 (07:04→20:12)
[2017-11-07 07:40] VITALS: BP 93/59
[2017-11-07] MEDS: KCL 20 MEQ/15 ML GT SCH (08:33)
[2017-11-07] MEDS: LACTULOSE 20 G/30 ML UDC GT SCH (08:33)
[2017-11-07] MEDS: FUROSEMIDE SOLN 40 MG/5 ML UDC GT SCH (08:33)
[2017-11-07] MEDS: FERROUS SULFATE - FOR SA ONLY 330 MG/7.5 ML UDC GT SCH ×2 (08:33→16:10)
[2017-11-07] MEDS: SIMETHICONE SUSP 40 MG/0.6 ML BOTTLE GT SCH ×2 (08:34→21:02)
[2017-11-07] MEDS: POLYVINYL ALCOHOL 15 ML BOTTLE OP SCH ×4 (08:35→21:02)
[2017-11-07] MEDS: PROSTAT (PYXIS) 30 ML UDC GT SCH ×2 (08:35→16:10)
[2017-11-07] MEDS: MIDODRINE HCL (5MG) 5 MG TABLET GT SCH ×2 (08:35→21:02)
[2017-11-07] MEDS: NYSTATIN TOP POWDER 15 GM BOTTLE TP SCH ×2 (08:35→21:03)
[2017-11-07] MEDS: HYDROGEN PEROXIDE 480 ML BOTTLE TP SCH ×2 (08:35→21:02)
[2017-11-07] MEDS: BACI/NEOM/POLY B OINT PKT 1 UDPKT PACKET TP SCH ×2 (08:36→21:03)
[2017-11-07] MEDS: ZINC OXIDE 30 GM TUBE TP SCH ×2 (08:36→21:03)
[2017-11-07] MEDS: Z GUARD REMEDY 4 OZ OINT TP SCH ×2 (08:36→21:03)
[2017-11-07] MEDS: RIVAROXABAN 10 MG TABLET GT SCH (16:10)
[2017-11-07] MEDS: VANCOMYCIN 1 GM in IV D5W 250ml IV SCH (16:29)
[2017-11-07] MEDS: MULTIVIT, IRON, MIN NO. 8, FA 1 TAB GT SCH (21:02)
[2017-11-07] MEDS: SENNOSIDES 8.6 MG TABLET GT SCH (21:03)
[2017-11-07] MEDS: LANOLIN/MIN OIL/PETROLAT,WHT 3.5 GM TUBE EACHEYE SCH (21:03)
[2017-11-08] MEDS: BACLOFEN (10 MG) 10 MG TABLET GT SCH ×2 (05:20→17:03)
[2017-11-08] MEDS: OMEPRAZOLE 10 MG CAPSULE.DR GT SCH (05:20)
[2017-11-08 06:57] LABS: BASOPHILS % (AUTO) 0.4 % (0.0-2.0); EOSINOPHILS % (AUTO) 6.1 % (0.0-6.0); HEMATOCRIT 27 % (33-45); HEMOGLOBIN 8.4 g/dL (11.5-14.8); LYMPHOCYTES # (AUTO) 2.1 /CMM (0.8-4.8); MEAN CORPUSCULAR HEMOGLOBIN 26 PG (26.0-33.0); MEAN CORPUSCULAR HGB CONC 31 g/dl (31.0-36.0); MEAN CORPUSCULAR VOLUME 84 fL (82-100); MONOCYTES # (AUTO) 0.5 /CMM (0.1-1.30); MONOCYTES % (AUTO) 7.3 % (2.0-12.0); NEUTROPHILS # (AUTO) 3.4 /CMM (1.8-8.9); NEUTROPHILS % (AUTO) 53.2 % (43.0-81.0); PLATELET COUNT (AUTO) 255 /CMM (150-450); RDW COEFFICIENT OF VARIATION 20.1 (11.5-15.0); RED BLOOD CELL COUNT(AUTO) 3.23 MIL/uL (4.0-5.2); WHITE BLOOD COUNT (AUTO) 6.4 K/uL (4.3-11.0)
[2017-11-08 07:45] VITALS: BP 103/58
[2017-11-08] MEDS: IPRATROPIUM NEB FS 0.5 MG/2.5 ML AMPUL.NEB IH SCH ×2 (08:02→20:09)
[2017-11-08] MEDS: KCL 20 MEQ/15 ML GT SCH (09:08)
[2017-11-08] MEDS: FUROSEMIDE SOLN 40 MG/5 ML UDC GT SCH (09:08)
[2017-11-08] MEDS: SIMETHICONE SUSP 40 MG/0.6 ML BOTTLE GT SCH ×2 (09:08→20:32)
[2017-11-08] MEDS: LACTULOSE 20 G/30 ML UDC GT SCH (09:08)
[2017-11-08] MEDS: FERROUS SULFATE - FOR SA ONLY 330 MG/7.5 ML UDC GT SCH ×2 (09:08→16:32)
[2017-11-08] MEDS: NYSTATIN TOP POWDER 15 GM BOTTLE TP SCH ×2 (09:09→20:32)
[2017-11-08] MEDS: HYDROGEN PEROXIDE 480 ML BOTTLE TP SCH ×2 (09:09→20:32)
[2017-11-08] MEDS: PROSTAT (PYXIS) 30 ML UDC GT SCH ×2 (09:09→16:32)
[2017-11-08] MEDS: BACI/NEOM/POLY B OINT PKT 1 UDPKT PACKET TP SCH ×2 (09:09→20:33)
[2017-11-08] MEDS: MIDODRINE HCL (5MG) 5 MG TABLET GT SCH ×2 (09:09→20:32)
[2017-11-08] MEDS: Z GUARD REMEDY 4 OZ OINT TP SCH ×2 (09:09→20:33)
[2017-11-08] MEDS: POLYVINYL ALCOHOL 15 ML BOTTLE OP SCH ×4 (09:09→20:32)
[2017-11-08] MEDS: ZINC OXIDE 30 GM TUBE TP SCH ×2 (09:09→20:33)
--- NOTE | 2017-11-08 11:45 | NUR ---
Asked NIKI Ashford for stop date of pt's Vancomycin. She said she will review it later.
[2017-11-08] MEDS: GLUCERNA 1.2 1,000 ML BOTTLE GT PRN (16:30)
[2017-11-08] MEDS: VANCOMYCIN 1 GM in IV D5W 250ml IV SCH (17:00)
[2017-11-08] MEDS: RIVAROXABAN 10 MG TABLET GT SCH (17:03)
[2017-11-08 20:00] VITALS: BP 102/64
[2017-11-08] MEDS: MULTIVIT, IRON, MIN NO. 8, FA 1 TAB GT SCH (20:32)
[2017-11-08] MEDS: LANOLIN/MIN OIL/PETROLAT,WHT 3.5 GM TUBE EACHEYE SCH (21:55)
[2017-11-08] MEDS: SENNOSIDES 8.6 MG TABLET GT SCH (21:55)
[2017-11-09] MEDS: LORAZEPAM 0.5 MG TABLET GT PRN ×2 (01:37→07:40)
--- NOTE | 2017-11-09 01:46 | NUR ---
At 0130 hr resident restless m/b hyperventilation leading to SOB. Ativan 0.5 mg/gt given prn as ordered. Kept dry, comfortable, and repositioned. O2 sat at 100% with ventilator. Will continue to monitor.
--- NOTE | 2017-11-09 02:30 | NUR ---
Ativan effective. Resident calm post 1 hour. Kept clean, dry, and comfortable. No s/s of any kind of distress. Will continue to monitor.
[2017-11-09] MEDS: BACLOFEN (10 MG) 10 MG TABLET GT SCH ×2 (05:00→18:38)
[2017-11-09] MEDS: OMEPRAZOLE 10 MG CAPSULE.DR GT SCH (05:00)
--- NOTE | 2017-11-09 05:36 | NUR ---
pt received on vent via trach secured with trach tie, settings as charted. ambu bag at bedside. alarms set and audible. disconnect alarms checked. vent plugged in red outlet. pt has increased hr at this time Addendum: 11/09/17 at 0537 by MELISA GARCIA RT Amended: Links added.
[2017-11-09 06:48] LABS: CALCIUM, SERUM 10.2 mg/dL (8.5-10.1); CREATININE 0.7 mg/dL (0.6-1.3); POTASSIUM 4.4 mmol/L (3.5-5.1)
[2017-11-09 07:32] VITALS: BP 110/59
[2017-11-09] MEDS: IPRATROPIUM NEB FS 0.5 MG/2.5 ML AMPUL.NEB IH SCH ×2 (07:56→19:53)
[2017-11-09] MEDS: LACTULOSE 20 G/30 ML UDC GT SCH (08:12)
[2017-11-09] MEDS: POLYVINYL ALCOHOL 15 ML BOTTLE OP SCH ×4 (08:12→20:37)
[2017-11-09] MEDS: FERROUS SULFATE - FOR SA ONLY 330 MG/7.5 ML UDC GT SCH ×2 (08:12→17:00)
[2017-11-09] MEDS: MIDODRINE HCL (5MG) 5 MG TABLET GT SCH ×2 (08:12→20:37)
[2017-11-09] MEDS: KCL 20 MEQ/15 ML GT SCH (08:12)
[2017-11-09] MEDS: PROSTAT (PYXIS) 30 ML UDC GT SCH ×2 (08:12→17:00)
[2017-11-09] MEDS: SIMETHICONE SUSP 40 MG/0.6 ML BOTTLE GT SCH ×2 (08:12→20:37)
[2017-11-09] MEDS: FUROSEMIDE SOLN 40 MG/5 ML UDC GT SCH (08:12)
[2017-11-09] MEDS: BACI/NEOM/POLY B OINT PKT 1 UDPKT PACKET TP SCH ×2 (11:17→20:38)
[2017-11-09] MEDS: HYDROGEN PEROXIDE 480 ML BOTTLE TP SCH ×2 (11:17→20:38)
[2017-11-09] MEDS: NYSTATIN TOP POWDER 15 GM BOTTLE TP SCH ×2 (11:17→20:38)
[2017-11-09] MEDS: Z GUARD REMEDY 4 OZ OINT TP SCH ×2 (11:18→20:38)
[2017-11-09] MEDS: ZINC OXIDE 30 GM TUBE TP SCH ×2 (11:18→20:38)
--- NOTE | 2017-11-09 12:09 | NUR ---
Left a message for both Judith (sister) and resident's mother Sabrina (mother/conservator) regarding upcoming IDT meeting on November 12, 2017 from 12:30-1:30pm. SW to follow up to see if they are able to attend.
--- NOTE | 2017-11-09 13:00 | NUR ---
Notified Dr. Dugan that pt's heart rate was elevated at 160 bpm last night and Ativan was given as endorsed by night charge nurse. Notified her also that pt's heart rate was 130-140 bpm this morning, Ativan was given again, current heart rate 113-116. Dr. Dugan said to monitor for now. She said she is thinking about starting low dose of Diltiazem if heart rate remains elevated. Addendum: 11/09/17 at 1715 by MIGUELANGEL REEDER RN Dr. Dugan said she saw pt's lab results today. No new order.
--- NOTE | 2017-11-09 14:39 | NUR ---
RT RECD PT TRACHED INTACT AND SECURED ON MECH VENT EUGENIO ORDERED SETTINGS ALARMS ON AND AUDIBLE VENT PLUGGED IN RED OUTLET TX GIVEN NOT WELL NO ADVERSE REACTION NOTED ATT SX THICK YELLOW SECRETIONS WILL CONTINUE TO MONITOR
--- NOTE | 2017-11-09 16:27 | NUR ---
Pt's heart rate 102 at this time. No respiratory distress noted. Pt appears comfortable.
[2017-11-09] MEDS: VANCOMYCIN 1 GM in IV D5W 250ml IV SCH (17:00)
[2017-11-09] MEDS: RIVAROXABAN 10 MG TABLET GT SCH (17:00)
[2017-11-09] MEDS: GLUCERNA 1.2 1,000 ML BOTTLE GT PRN (18:30)
[2017-11-09 20:06] VITALS: BP 117/70
[2017-11-09] MEDS: MULTIVIT, IRON, MIN NO. 8, FA 1 TAB GT SCH (20:37)
[2017-11-09] MEDS: LANOLIN/MIN OIL/PETROLAT,WHT 3.5 GM TUBE EACHEYE SCH (21:20)
[2017-11-09] MEDS: SENNOSIDES 8.6 MG TABLET GT SCH (21:20)
[2017-11-10] MEDS: OMEPRAZOLE 10 MG CAPSULE.DR GT SCH (05:08)
[2017-11-10] MEDS: BACLOFEN (10 MG) 10 MG TABLET GT SCH ×2 (05:08→18:00)
--- NOTE | 2017-11-10 05:38 | NUR ---
pt received on vent via trach secured with trach tie, settings as charted. ambu bag at bedside. alarms set and audible. disconnect alarms checked. vent plugged in red outlet. tolerating vent settings at this time Addendum: 11/10/17 at 0538 by MELISA GARCIA RT Amended: Links added.
[2017-11-10 07:45] VITALS: BP 98/62
[2017-11-10] MEDS: IPRATROPIUM NEB FS 0.5 MG/2.5 ML AMPUL.NEB IH SCH ×2 (08:08→19:34)
[2017-11-10] MEDS: FERROUS SULFATE - FOR SA ONLY 330 MG/7.5 ML UDC GT SCH ×2 (08:25→17:00)
[2017-11-10] MEDS: KCL 20 MEQ/15 ML GT SCH (08:25)
[2017-11-10] MEDS: LACTULOSE 20 G/30 ML UDC GT SCH (08:25)
[2017-11-10] MEDS: SIMETHICONE SUSP 40 MG/0.6 ML BOTTLE GT SCH ×2 (08:25→20:14)
[2017-11-10] MEDS: FUROSEMIDE SOLN 40 MG/5 ML UDC GT SCH (08:25)
[2017-11-10] MEDS: ZINC OXIDE 30 GM TUBE TP SCH ×2 (08:26→20:15)
[2017-11-10] MEDS: Z GUARD REMEDY 4 OZ OINT TP SCH ×2 (08:26→20:15)
[2017-11-10] MEDS: PROSTAT (PYXIS) 30 ML UDC GT SCH ×2 (08:26→17:00)
[2017-11-10] MEDS: HYDROGEN PEROXIDE 480 ML BOTTLE TP SCH ×2 (08:26→20:15)
[2017-11-10] MEDS: MIDODRINE HCL (5MG) 5 MG TABLET GT SCH ×2 (08:26→20:15)
[2017-11-10] MEDS: POLYVINYL ALCOHOL 15 ML BOTTLE OP SCH ×4 (08:26→20:15)
[2017-11-10] MEDS: NYSTATIN TOP POWDER 15 GM BOTTLE TP SCH ×2 (08:26→20:15)
[2017-11-10] MEDS: BACI/NEOM/POLY B OINT PKT 1 UDPKT PACKET TP SCH ×2 (08:26→20:15)
[2017-11-10] MEDS: VANCOMYCIN 1 GM in IV D5W 250ml IV SCH (16:59)
[2017-11-10] MEDS: RIVAROXABAN 10 MG TABLET GT SCH (17:00)
--- NOTE | 2017-11-10 17:35 | NUR ---
PATIENT RECEIVED ON MECHANICAL VENTILATION ON AC SETTINGS. VENT PLUGGED INTO RED OUTLET. ALARMS ON AND AUDIBLE. AMBU BAG AND BACK UP TRACH @ BEDSIDE. TX GIVEN, NO ADVERSE REACTIONS NOTED. SX DONE, MODERATE THICK WHITE YELLOW SECRETIONS NOTED. PATIENT STABLE T/O SHIFT, NO DISTRESS NOTED. HME REPLACED. Addendum: 11/10/17 at 1735 by MARLIN AGUILAR RT Amended: Links added.
[2017-11-10] MEDS: MULTIVIT, IRON, MIN NO. 8, FA 1 TAB GT SCH (20:15)
[2017-11-10] MEDS: SENNOSIDES 8.6 MG TABLET GT SCH (21:59)
[2017-11-10] MEDS: LANOLIN/MIN OIL/PETROLAT,WHT 3.5 GM TUBE EACHEYE SCH (21:59)
[2017-11-10 22:01] VITALS: BP 99/65
[2017-11-10] MEDS: GLUCERNA 1.2 1,000 ML BOTTLE GT PRN (22:15)
--- NOTE | 2017-11-11 03:05 | NUR ---
RT pt trach on [facility] vent ordered settings. no resp distress noted. trach secure and patent. Addendum: 11/11/17 at 0403 by SAE MERAZ RT Amended: Links added.
[2017-11-11] MEDS: BACLOFEN (10 MG) 10 MG TABLET GT SCH ×2 (05:12→17:05)
[2017-11-11] MEDS: OMEPRAZOLE 10 MG CAPSULE.DR GT SCH (05:13)
[2017-11-11 06:39] LABS: BASOPHILS # (AUTO) 0.1 /CMM (0.0-0.2); BASOPHILS % (AUTO) 0.6 % (0.0-2.0); EOSINOPHILS % (AUTO) 5.7 % (0.0-6.0); HEMATOCRIT 29 % (33-45); HEMOGLOBIN 9.1 g/dL (11.5-14.8); LYMPHOCYTES # (AUTO) 3.4 /CMM (0.8-4.8); LYMPHOCYTES % (AUTO) 31.2 % (20.0-44.0); MEAN CORPUSCULAR HEMOGLOBIN 27 PG (26.0-33.0); MEAN CORPUSCULAR HGB CONC 32 g/dl (31.0-36.0); MEAN CORPUSCULAR VOLUME 84 fL (82-100); MONOCYTES # (AUTO) 0.7 /CMM (0.1-1.30); MONOCYTES % (AUTO) 6.4 % (2.0-12.0); NEUTROPHILS % (AUTO) 56.1 % (43.0-81.0); PLATELET COUNT (AUTO) 249 /CMM (150-450); RDW COEFFICIENT OF VARIATION 20.2 (11.5-15.0); RED BLOOD CELL COUNT(AUTO) 3.41 MIL/uL (4.0-5.2); WHITE BLOOD COUNT (AUTO) 10.8 K/uL (4.3-11.0)
[2017-11-11] MEDS: IPRATROPIUM NEB FS 0.5 MG/2.5 ML AMPUL.NEB IH SCH ×2 (07:22→19:30)
[2017-11-11 07:54] VITALS: BP 109/69
[2017-11-11] MEDS: FUROSEMIDE SOLN 40 MG/5 ML UDC GT SCH (08:39)
[2017-11-11] MEDS: KCL 20 MEQ/15 ML GT SCH (08:39)
[2017-11-11] MEDS: FERROUS SULFATE - FOR SA ONLY 330 MG/7.5 ML UDC GT SCH ×2 (08:39→17:04)
[2017-11-11] MEDS: LACTULOSE 20 G/30 ML UDC GT SCH (08:39)
[2017-11-11] MEDS: SIMETHICONE SUSP 40 MG/0.6 ML BOTTLE GT SCH ×2 (08:39→21:24)
[2017-11-11] MEDS: MIDODRINE HCL (5MG) 5 MG TABLET GT SCH ×2 (08:40→21:24)
[2017-11-11] MEDS: POLYVINYL ALCOHOL 15 ML BOTTLE OP SCH ×4 (08:40→21:24)
[2017-11-11] MEDS: PROSTAT (PYXIS) 30 ML UDC GT SCH ×2 (08:40→17:04)
[2017-11-11] MEDS: HYDROGEN PEROXIDE 480 ML BOTTLE TP SCH ×2 (08:40→21:24)
[2017-11-11] MEDS: NYSTATIN TOP POWDER 15 GM BOTTLE TP SCH ×2 (08:41→21:24)
[2017-11-11] MEDS: ZINC OXIDE 30 GM TUBE TP SCH ×2 (08:41→21:25)
[2017-11-11] MEDS: Z GUARD REMEDY 4 OZ OINT TP SCH ×2 (08:41→21:25)
--- NOTE | 2017-11-11 12:30 | NUR ---
Seen by NIKI Pabon, NNO given.
[2017-11-11] MEDS: RIVAROXABAN 10 MG TABLET GT SCH (17:05)
[2017-11-11] MEDS: LORAZEPAM 0.5 MG TABLET GT PRN (19:10)
[2017-11-11] MEDS: GLUCERNA 1.2 1,000 ML BOTTLE GT PRN (19:15)
[2017-11-11 20:53] VITALS: BP_SYST 87
[2017-11-11] MEDS: MULTIVIT, IRON, MIN NO. 8, FA 1 TAB GT SCH (21:24)
[2017-11-11] MEDS: LANOLIN/MIN OIL/PETROLAT,WHT 3.5 GM TUBE EACHEYE SCH (21:25)
[2017-11-11] MEDS: SENNOSIDES 8.6 MG TABLET GT SCH (21:25)
[2017-11-11 21:46] VITALS: BP 113/74
[2017-11-12] MEDS: BACLOFEN (10 MG) 10 MG TABLET GT SCH ×2 (05:24→17:15)
[2017-11-12] MEDS: OMEPRAZOLE 10 MG CAPSULE.DR GT SCH (05:24)
[2017-11-12 07:34] VITALS: BP 126/76
[2017-11-12] MEDS: IPRATROPIUM NEB FS 0.5 MG/2.5 ML AMPUL.NEB IH SCH ×2 (08:19→18:56)
[2017-11-12] MEDS: LACTULOSE 20 G/30 ML UDC GT SCH (09:00)
[2017-11-12] MEDS: HYDROGEN PEROXIDE 480 ML BOTTLE TP SCH ×2 (09:00→21:04)
[2017-11-12] MEDS: POLYVINYL ALCOHOL 15 ML BOTTLE OP SCH ×4 (09:00→21:04)
[2017-11-12] MEDS: ZINC OXIDE 30 GM TUBE TP SCH ×2 (09:00→21:04)
[2017-11-12] MEDS: Z GUARD REMEDY 4 OZ OINT TP SCH ×2 (09:00→21:04)
[2017-11-12] MEDS: SIMETHICONE SUSP 40 MG/0.6 ML BOTTLE GT SCH ×2 (09:00→21:04)
[2017-11-12] MEDS: FUROSEMIDE SOLN 40 MG/5 ML UDC GT SCH (09:00)
[2017-11-12] MEDS: MIDODRINE HCL (5MG) 5 MG TABLET GT SCH ×2 (09:00→21:04)
[2017-11-12] MEDS: KCL 20 MEQ/15 ML GT SCH (09:00)
[2017-11-12] MEDS: FERROUS SULFATE - FOR SA ONLY 330 MG/7.5 ML UDC GT SCH ×2 (09:00→17:04)
[2017-11-12] MEDS: NYSTATIN TOP POWDER 15 GM BOTTLE TP SCH ×2 (09:00→21:04)
[2017-11-12] MEDS: PROSTAT (PYXIS) 30 ML UDC GT SCH ×2 (09:00→17:04)
--- NOTE | 2017-11-12 15:30 | NUR ---
INTERDISCIPLINARY TEAM CONFERENCE (IDT) was held today. Resident's mother or sister unable to attend IDT meeting. Dr. Macario and the interdisciplinary team reviewed the current plan of care in detail. Orders as well as treatment and medications were reviewed. No new orders were given.
[2017-11-12] MEDS: GLUCERNA 1.2 1,000 ML BOTTLE GT PRN (17:16)
[2017-11-12] MEDS: RIVAROXABAN 10 MG TABLET GT SCH (17:26)
[2017-11-12] MEDS: MULTIVIT, IRON, MIN NO. 8, FA 1 TAB GT SCH (21:04)
[2017-11-12] MEDS: LANOLIN/MIN OIL/PETROLAT,WHT 3.5 GM TUBE EACHEYE SCH (21:04)
[2017-11-12] MEDS: SENNOSIDES 8.6 MG TABLET GT SCH (21:05)
[2017-11-12 22:40] VITALS: BP 105/73
[2017-11-13] MEDS: ACETAMINOPHEN 650 MG/20 ML UDC- FOR SA PATIENTS ONLY GT PRN (02:30)
[2017-11-13] MEDS: OMEPRAZOLE 10 MG CAPSULE.DR GT SCH (05:12)
[2017-11-13] MEDS: BACLOFEN (10 MG) 10 MG TABLET GT SCH ×2 (05:12→17:05)
--- NOTE | 2017-11-13 06:10 | NUR ---
PATIENT RECEIVED ON MECHANICAL VENTILATION ON AC SETTINGS. VENT PLUGGED INTO RED OUTLET. ALARMS ON AND AUDIBLE. AMBU BAG AND BACK UP TRACH ARE AT BEDSIDE. TX GIVEN, NO ADVERSE REACTIONS NOTED. SX DONE, MODERATE THICK WHITE YELLOW SECRETIONS NOTED. NO DISTRESS NOTED. ELISA & CRUZ CHANGED. Addendum: 11/13/17 at 0611 by CIRO HERNÁNDEZ RT Amended: Links added.
[2017-11-13 07:31] VITALS: BP 120/66
[2017-11-13] MEDS ORDERED: LORAZEPAM INJ 2 MG/ML VIAL IVP PRN (08:00)
[2017-11-13] MEDS: LACTULOSE 20 G/30 ML UDC GT SCH (08:23)
[2017-11-13] MEDS: FERROUS SULFATE - FOR SA ONLY 330 MG/7.5 ML UDC GT SCH ×2 (08:23→16:57)
[2017-11-13] MEDS: FUROSEMIDE SOLN 40 MG/5 ML UDC GT SCH (08:25)
[2017-11-13] MEDS: KCL 20 MEQ/15 ML GT SCH (08:25)
[2017-11-13] MEDS: SIMETHICONE SUSP 40 MG/0.6 ML BOTTLE GT SCH ×2 (08:26→20:37)
[2017-11-13] MEDS: MIDODRINE HCL (5MG) 5 MG TABLET GT SCH ×2 (08:27→20:37)
[2017-11-13] MEDS: PROSTAT (PYXIS) 30 ML UDC GT SCH ×2 (08:27→16:57)
[2017-11-13] MEDS: POLYVINYL ALCOHOL 15 ML BOTTLE OP SCH ×4 (08:27→20:37)
[2017-11-13] MEDS: IPRATROPIUM NEB FS 0.5 MG/2.5 ML AMPUL.NEB IH SCH ×2 (08:30→19:56)
[2017-11-13] MEDS: NYSTATIN TOP POWDER 15 GM BOTTLE TP SCH ×2 (09:00→20:38)
[2017-11-13] MEDS: HYDROGEN PEROXIDE 480 ML BOTTLE TP SCH ×2 (09:00→20:37)
[2017-11-13] MEDS: Z GUARD REMEDY 4 OZ OINT TP SCH ×2 (09:00→20:38)
[2017-11-13] MEDS: ZINC OXIDE 30 GM TUBE TP SCH ×4 (09:00→20:39)
[2017-11-13] MEDS: RIVAROXABAN 10 MG TABLET GT SCH (16:58)
[2017-11-13] MEDS: GLUCERNA 1.2 1,000 ML BOTTLE GT PRN (16:59)
--- NOTE | 2017-11-13 18:08 | NUR ---
RT END OF THE SHIFT REPORT, PT. 52 Y OLD FEMALE REMAIN TRACHED SHILEY XLT # 6 WITH NOTED SETTINGS, VENT ALARMS ARE SET AND AUDIBLE WITH AMBU BAG AT THE BEDSIDE. FIRST COAT OPERATOR CUFF PRESSURE NOTED. VENT IS PLUGGED INTO RED OUTLET. B/S BILATERALLY RALES EQUAL CHEST RISE NOTED. TX'S GIVEN INLINE NO A/R NOTED SX MODERATE THICK YELLOW SECRETIONS. NO RESPIRATORY DISTRESS NOTED T/O SHIFT, HME CHANGED WILL CONTINUE TO MONITOR. PT REMAIN STABLE. REPORT WILL BE GIVEN TO PM SHIFT. Addendum: 11/13/17 at 1809 by LIZBETH PIMENTEL RT Amended: Links added.
[2017-11-13 20:15] VITALS: BP 140/69
[2017-11-13] MEDS: MULTIVIT, IRON, MIN NO. 8, FA 1 TAB GT SCH (20:37)
[2017-11-13] MEDS: SENNOSIDES 8.6 MG TABLET GT SCH (22:51)
[2017-11-13] MEDS: LANOLIN/MIN OIL/PETROLAT,WHT 3.5 GM TUBE EACHEYE SCH (22:51)
--- NOTE | 2017-11-14 04:15 | NUR ---
RT RECEIVED PT TRACHED ON MECHANICAL VENT. AMBU BAG & BACK UP TRACH ARE AT BEDSIDE. TX GIVEN, NO ADVERSE REACTIONS. ORAL AND TRACH SX LARGE AMOUNT OF YELLOW THICK SECRETION. TRACH SECURED AND PATENT. ALARMS ON AND AUDIBLE. VENT PLUGGED INTO RED OUTLET. WILL CONTINUE TO MONITOR PT.
[2017-11-14] MEDS: OMEPRAZOLE 10 MG CAPSULE.DR GT SCH (05:43)
[2017-11-14] MEDS: BACLOFEN (10 MG) 10 MG TABLET GT SCH ×2 (05:43→17:47)
[2017-11-14 07:26] VITALS: BP 104/66
[2017-11-14] MEDS: IPRATROPIUM NEB FS 0.5 MG/2.5 ML AMPUL.NEB IH SCH ×2 (07:56→20:40)
[2017-11-14] MEDS: Z GUARD REMEDY 4 OZ OINT TP SCH ×2 (09:00→20:54)
[2017-11-14] MEDS: POLYVINYL ALCOHOL 15 ML BOTTLE OP SCH ×4 (09:00→20:54)
[2017-11-14] MEDS: ZINC OXIDE 30 GM TUBE TP SCH ×4 (09:00→20:54)
[2017-11-14] MEDS: PROSTAT (PYXIS) 30 ML UDC GT SCH ×2 (09:00→16:09)
[2017-11-14] MEDS: NYSTATIN TOP POWDER 15 GM BOTTLE TP SCH ×2 (09:00→20:54)
[2017-11-14] MEDS: FUROSEMIDE SOLN 40 MG/5 ML UDC GT SCH (09:59)
[2017-11-14] MEDS: KCL 20 MEQ/15 ML GT SCH (09:59)
[2017-11-14] MEDS: LACTULOSE 20 G/30 ML UDC GT SCH (09:59)
[2017-11-14] MEDS: SIMETHICONE SUSP 40 MG/0.6 ML BOTTLE GT SCH ×2 (09:59→20:53)
[2017-11-14] MEDS: FERROUS SULFATE - FOR SA ONLY 330 MG/7.5 ML UDC GT SCH ×2 (09:59→16:09)
[2017-11-14] MEDS: MIDODRINE HCL (5MG) 5 MG TABLET GT SCH ×2 (10:00→20:53)
[2017-11-14] MEDS: HYDROGEN PEROXIDE 480 ML BOTTLE TP SCH ×2 (10:00→20:54)
--- NOTE | 2017-11-14 11:46 | NUR ---
RT RECD PT TRACH'D INTACT AND SECURED ON MECH VENT EUGENIO ORDERED VENT SETTINGS, ALARMS ON AND AUDIBLE, VENT PLUGGED IN RED OUTLET. BAG AND MASK AT [facility]. TX GIVEN EUGENIO WELL NO ADVERSE REACTION NOTED ATT. NO RESP DISTRESS NOTED ATT WILL CONTINUE TO MONITOR
[2017-11-14] MEDS: GLUCERNA 1.2 1,000 ML BOTTLE GT PRN (15:44)
[2017-11-14] MEDS: RIVAROXABAN 10 MG TABLET GT SCH (16:09)
[2017-11-14 20:27] VITALS: BP 123/62
[2017-11-14] MEDS: MULTIVIT, IRON, MIN NO. 8, FA 1 TAB GT SCH (20:54)
[2017-11-14] MEDS: LANOLIN/MIN OIL/PETROLAT,WHT 3.5 GM TUBE EACHEYE SCH (21:43)
[2017-11-14] MEDS: SENNOSIDES 8.6 MG TABLET GT SCH (21:43)
[2017-11-15] MEDS: BACLOFEN (10 MG) 10 MG TABLET GT SCH ×2 (05:05→17:21)
[2017-11-15] MEDS: OMEPRAZOLE 10 MG CAPSULE.DR GT SCH (05:05)
[2017-11-15 07:32] LABS: BASOPHILS % (AUTO) 0.6 % (0.0-2.0); EOSINOPHILS % (AUTO) 6.4 % (0.0-6.0); HEMATOCRIT 27 % (33-45); HEMOGLOBIN 8.2 g/dL (11.5-14.8); LYMPHOCYTES # (AUTO) 2.6 /CMM (0.8-4.8); LYMPHOCYTES % (AUTO) 32.6 % (20.0-44.0); MEAN CORPUSCULAR HEMOGLOBIN 26 PG (26.0-33.0); MEAN CORPUSCULAR HGB CONC 31 g/dl (31.0-36.0); MEAN CORPUSCULAR VOLUME 83 fL (82-100); MONOCYTES # (AUTO) 0.8 /CMM (0.1-1.30); MONOCYTES % (AUTO) 9.5 % (2.0-12.0); NEUTROPHILS # (AUTO) 4.1 /CMM (1.8-8.9); NEUTROPHILS % (AUTO) 50.9 % (43.0-81.0); PLATELET COUNT (AUTO) 323 /CMM (150-450); RDW COEFFICIENT OF VARIATION 19.7 (11.5-15.0); RED BLOOD CELL COUNT(AUTO) 3.23 MIL/uL (4.0-5.2)
[2017-11-15 07:35] VITALS: BP 88/61
[2017-11-15] MEDS: IPRATROPIUM NEB FS 0.5 MG/2.5 ML AMPUL.NEB IH SCH ×2 (08:40→19:48)
[2017-11-15] MEDS: FERROUS SULFATE - FOR SA ONLY 330 MG/7.5 ML UDC GT SCH ×2 (08:41→17:19)
[2017-11-15] MEDS: LACTULOSE 20 G/30 ML UDC GT SCH (08:41)
[2017-11-15] MEDS: KCL 20 MEQ/15 ML GT SCH (08:41)
[2017-11-15] MEDS: POLYVINYL ALCOHOL 15 ML BOTTLE OP SCH ×4 (08:42→20:21)
[2017-11-15] MEDS: PROSTAT (PYXIS) 30 ML UDC GT SCH ×2 (08:42→17:19)
[2017-11-15] MEDS: FUROSEMIDE SOLN 40 MG/5 ML UDC GT SCH (08:42)
[2017-11-15] MEDS: SIMETHICONE SUSP 40 MG/0.6 ML BOTTLE GT SCH ×2 (08:42→20:20)
[2017-11-15] MEDS: MIDODRINE HCL (5MG) 5 MG TABLET GT SCH ×2 (08:42→20:21)
[2017-11-15] MEDS: Z GUARD REMEDY 4 OZ OINT TP SCH ×2 (09:00→20:21)
[2017-11-15] MEDS: NYSTATIN TOP POWDER 15 GM BOTTLE TP SCH ×2 (09:00→20:21)
[2017-11-15] MEDS: HYDROGEN PEROXIDE 480 ML BOTTLE TP SCH ×2 (09:00→20:21)
[2017-11-15] MEDS: ZINC OXIDE 30 GM TUBE TP SCH ×4 (09:00→20:21)
--- NOTE | 2017-11-15 09:29 | NUR ---
RT RECD PT TRACH'D INTACT AND SECURED ON MECH VENT EUGENIO ORDERED VENT SETTINGS, ALARMS ON AND AUDIBLE, VENT PLUGGED IN RED OUTLET. BAG AND MASK AT [facility]. TX GIVEN EUGENIO WELL NO ADVERSE REACTION NOTED ATT. SX THICK YELLOW LARGE SECRETIONS. NO RESP DISTRESS NOTED ATT WILL CONTINUE TO MONITOR
[2017-11-15] MEDS: GLUCERNA 1.2 1,000 ML BOTTLE GT PRN (13:57)
[2017-11-15] MEDS: RIVAROXABAN 10 MG TABLET GT SCH (17:20)
[2017-11-15] MEDS: MULTIVIT, IRON, MIN NO. 8, FA 1 TAB GT SCH (20:21)
[2017-11-15 20:23] VITALS: BP 115/69
[2017-11-15] MEDS: LANOLIN/MIN OIL/PETROLAT,WHT 3.5 GM TUBE EACHEYE SCH (21:46)
[2017-11-15] MEDS: SENNOSIDES 8.6 MG TABLET GT SCH (21:46)
[2017-11-16] MEDS: OMEPRAZOLE 10 MG CAPSULE.DR GT SCH (05:21)
[2017-11-16] MEDS: BACLOFEN (10 MG) 10 MG TABLET GT SCH (05:21)
[2017-11-16] MEDS: IPRATROPIUM NEB FS 0.5 MG/2.5 ML AMPUL.NEB IH SCH (07:48)
[2017-11-16 08:12] VITALS: BP 119/75
[2017-11-16 08:57] VITALS: BP 119/75
[2017-11-16] MEDS: KCL 20 MEQ/15 ML GT SCH (08:57)
[2017-11-16] MEDS: SIMETHICONE SUSP 40 MG/0.6 ML BOTTLE GT SCH (08:57)
[2017-11-16] MEDS: PROSTAT (PYXIS) 30 ML UDC GT SCH (08:57)
[2017-11-16] MEDS: POLYVINYL ALCOHOL 15 ML BOTTLE OP SCH ×2 (08:57→12:12)
[2017-11-16] MEDS: LACTULOSE 20 G/30 ML UDC GT SCH (08:57)
[2017-11-16] MEDS: FERROUS SULFATE - FOR SA ONLY 330 MG/7.5 ML UDC GT SCH (08:57)
[2017-11-16] MEDS: FUROSEMIDE SOLN 40 MG/5 ML UDC GT SCH (08:57)
[2017-11-16] MEDS: MIDODRINE HCL (5MG) 5 MG TABLET GT SCH (08:57)
[2017-11-16] MEDS: ZINC OXIDE 30 GM TUBE TP SCH ×2 (08:58)
[2017-11-16] MEDS: HYDROGEN PEROXIDE 480 ML BOTTLE TP SCH (08:58)
[2017-11-16] MEDS: NYSTATIN TOP POWDER 15 GM BOTTLE TP SCH (08:58)
[2017-11-16] MEDS: Z GUARD REMEDY 4 OZ OINT TP SCH (08:58)
--- NOTE | 2017-11-16 12:33 | NUR ---
Pt's HR 150-160's, noted to be in respiratory distress. O2 sat 93-95%. Suctioned patient, min secretions noted. Ativan IVP given as ordered. Pt repositioned and kept comfortable. HR down to 130's 10mins post administration if ativan. Will continue to monitor.
--- NOTE | 2017-11-16 14:50 | NUR ---
Pt tachypneic and SOB. HR 150-160, O2 sat 100%. Ativan 0.5 mg IV was administered. Pt was also given Tylenol. Pt suctioned and given breathing treatment. Notified Dr. Dugan. Received order to do ABG, CXR, CBC, BMP. Addendum: 11/16/17 at 1642 by MIGUELANGEL REEDER RN Pt was also given Lactulose, abdomen was distended.
[2017-11-16 15:20] LABS: ABG BASE EXCESS 1.8 mmol/L; ABG PCO2 41.5 mmHg (35.0-45.0); ABG PH 7.422 (7.350-7.450); ABG PO2 64.3 mmHg (75.0-100.0); AaDO2 100.8 mmHg; COHb 0.3 % (0.5-1.5); MetHb 0.7 % (0.0-1.5); O2Hb 91.1 % (94.0-97.0); SITE, ABG Right Radial
[2017-11-16 15:49] LABS: CALCIUM, SERUM 10.8 mg/dL (8.5-10.1); CREATININE 0.7 mg/dL (0.6-1.3); POTASSIUM 4.6 mmol/L (3.5-5.1)
[2017-11-16 15:59] LABS: BASOPHILS % (AUTO) 0.2 % (0.0-2.0); EOSINOPHILS % (AUTO) 0.8 % (0.0-6.0); HEMATOCRIT 33 % (33-45); HEMOGLOBIN 10.1 g/dL (11.5-14.8); LYMPHOCYTES # (AUTO) 1.8 /CMM (0.8-4.8); MEAN CORPUSCULAR HEMOGLOBIN 26 PG (26.0-33.0); MEAN CORPUSCULAR HGB CONC 31 g/dl (31.0-36.0); MEAN CORPUSCULAR VOLUME 83 fL (82-100); MONOCYTES # (AUTO) 0.4 /CMM (0.1-1.30); MONOCYTES % (AUTO) 2.1 % (2.0-12.0); NEUTROPHILS % (AUTO) 86.9 % (43.0-81.0); PLATELET COUNT (AUTO) 428 /CMM (150-450); RDW COEFFICIENT OF VARIATION 19.8 (11.5-15.0); RED BLOOD CELL COUNT(AUTO) 3.95 MIL/uL (4.0-5.2); WHITE BLOOD COUNT (AUTO) 18.4 K/uL (4.3-11.0)
--- NOTE | 2017-11-16 16:03 | NUR ---
Notified Dr. Dugan pt has not improved. HR 168-170. Dr. Dugan ordered to transfer pt to ER. Notified pt's mother of change in condition and transfer to ER.
--- NOTE | 2017-11-16 16:25 | NUR ---
PATIENT RECEIVED ON MECHANICAL VENTILATION. AMBU BAG/BACK UP TRACH @ BEDSIDE. VENT PLUGGED INTO RED OUTLET. ALARMS ON AND AUDIBLE. SX DONE, MODERATE THICK YELLOW SECRETIONS NOTED. HME REPLACED. WILL TRANSFER PATIENT TO ER PER NURSE BOSS. NURSE AWARE OF HIGH HR. Addendum: 11/16/17 at 1627 by MARLIN AGUILAR RT Amended: Links added.
--- NOTE | 2017-11-16 16:40 | NUR ---
Transferred pt to ER, pt accompanied by RN and 2 RTs. T 99.6 BP 138/75 P 170 R 30 O2 sat 95%. Called pt's mother again and notified her of bedhold for 7 days.
[2017-11-16] MEDS ORDERED: AMIN30LI4 GT (17:20)
[2017-11-16] MEDS ORDERED: ALLA266C2 TP (17:20)
[2017-11-16] MEDS ORDERED: MIDO10TA GT (17:20)
[2017-11-16] MEDS ORDERED: ZINC57OI4 TP (17:20)
[2017-11-16] MEDS ORDERED: LORA2VIA11 IVP (17:20)
[2017-11-16] MEDS ORDERED: HYDR1SOL TP (17:20)
[2017-11-16] MEDS ORDERED: SENN-167 GT (17:20)
[2017-11-16] MEDS ORDERED: FERR325T23 GT (17:20)
[2017-11-16] MEDS ORDERED: OMEP20CA10 GT (17:20)
[2017-11-16] MEDS ORDERED: ONDA4TAB8 GT (17:20)
[2017-11-16] MEDS ORDERED: MULT-447 GT (17:20)
[2017-11-16] MEDS ORDERED: NYST15PO4 TP (17:20)
[2017-11-16] MEDS ORDERED: POLY15DR40 EACHEYE (17:20)
[2017-11-16] MEDS ORDERED: NUT.237L30 GT (17:20)
[2017-11-16] MEDS ORDERED: LACT20SO4 GT ×2 (17:20)
[2017-11-16] MEDS ORDERED: LANO3.5O3 EACHEYE (17:20)
[2017-11-16] MEDS ORDERED: LORA0.5T GT (17:20)
[2017-11-16] MEDS ORDERED: IPRA0.2S9 IH (17:20)
[2017-11-16] MEDS ORDERED: RIVA10TA GT (17:20)
[2017-11-16] MEDS ORDERED: SIME40DR7 GT (17:20)
--- NOTE | 2017-11-17 14:02 | NUR ---
Resident was transferred to [facility] ER on 11/16/2017. Resident transfer/discharge form was completed and placed into the resident's chart. Resident's mother was informed of 7day bedhold at the time of transfer.
[2017-11-20] MEDS ORDERED: TUBERCULIN,PURIF.PROT.DERIV. 5 TU/0.1 ML VIAL ID SCH (09:00)
[2017-11-26] MEDS ORDERED: LEVO500T90 PO (08:04)
[2017-11-26] MEDS ORDERED: COLI150V NEB (08:04)
[2017-11-26] MEDS ORDERED: HYDR1SOL TD (08:04)
[2017-11-26] MEDS ORDERED: ALLA266C2 TP (08:04)
[2017-11-26] MEDS ORDERED: PANT40SU2 GT (08:04)
[2017-11-26] MEDS ORDERED: CEFE1VIA11 IV (08:04)
== END 2017-11-16 19:49 | disposition short-term general hospital (02) | DRG 130 ==
LOC: SA 00:01
PROVIDERS: ADMIT Internal Medicine Nephrology; ATTEND Internal Medicine Nephrology
PROC: 5A1955Z Respiratory Ventilation, Greater than 96 Consecutive Hours (ICD-10-PCS; principal; 2017-06-02)
DX: J96.11 Chronic respiratory failure with hypoxia (principal); D65 Disseminated intravascular coagulation [defibrination syndrome]; G93.40 Encephalopathy, unspecified; A41.9 Sepsis, unspecified organism; G93.1 Anoxic brain damage, not elsewhere classified; J18.9 Pneumonia, unspecified organism; R40.3 Persistent vegetative state; R13.10 Dysphagia, unspecified; R53.2 Functional quadriplegia; F09 Unspecified mental disorder due to known physiological condition; I25.10 Atherosclerotic heart disease of native coronary artery without angina pectoris; Z79.899 Other long term (current) drug therapy; Z87.01 Personal history of pneumonia (recurrent); Z87.440 Personal history of urinary (tract) infections; D63.8 Anemia in other chronic diseases classified elsewhere; E83.52 Hypercalcemia; E87.0 Hyperosmolality and hypernatremia; G40.909 Epilepsy, unspecified, not intractable, without status epilepticus; K80.50 Calculus of bile duct without cholangitis or cholecystitis without obstruction; S90.30XA Contusion of unspecified foot, initial encounter; X58.XXXA Exposure to other specified factors, initial encounter; Y92.129 Unspecified place in nursing home as the place of occurrence of the external cause; H10.9 Unspecified conjunctivitis; Z22.322 Carrier or suspected carrier of Methicillin resistant Staphylococcus aureus; D50.9 Iron deficiency anemia, unspecified; Z99.11 Dependence on respirator [ventilator] status; Z93.1 Gastrostomy status; Z93.0 Tracheostomy status; K31.84 Gastroparesis; B35.1 Tinea unguium; K56.7 Ileus, unspecified; L03.115 Cellulitis of right lower limb; Y95 Nosocomial condition; I82.401 Acute embolism and thrombosis of unspecified deep veins of right lower extremity; E66.01 Morbid (severe) obesity due to excess calories; Z68.30 Body mass index [BMI] 30.0-30.9, adult
CPT/HCPCS: 31720; 36415; 36600; 71045-TC; 74018; 76700-TC; 80048-TC; 80202-TC; 81000-TC; 82565-TC; 82803-TC; 82962-TC; 83735-TC; 84100-TC; 84520-TC; 85025-TC; 86580-TC; 86706; 86803; 87086-TC; 93971-TC; 94003-TC; 94664-TC; 94760-TC; 94761-TC; 94762-TC; 94799-TC; 99082-TC; A4217; A4606; A4623; A6253; A6402; A7526; J0696; J1940; J2060; J2543; J3370; J7030; J7060; Q0162; Z7610

== ENCOUNTER 2017-11-16 16:48 | Inpatient (IN) | payer OTHER ==
[~2017-11-16] VITALS: Ht 162.6 cm; Wt 70.3 kg
[2017-11-16 16:55] VITALS: BP 96/74
[2017-11-16] MEDS ORDERED: ACETAMINOPHEN 650 MG/SUPP.RECT RC ONE ×2 (17:00→17:08)
--- NOTE | 2017-11-16 17:00 | NUR ---
BB STAFF FROM SUB ACUTE FOR FAST HEART RATE, GIVEN ATIVAN 0.5MG AT 1230. VENT/TRACH DEPENDENT. BREATHING EVEN, BUT TACHYPNIC. IV INTACT ON RIGHT FOOT 22G FROM SUBACUTE. NO DISTRESS NOTED. SAFETY AND COMFORT MEASURES IN PLACE. AWAITING MD ORDERS.
--- NOTE | 2017-11-16 17:03 | NUR ---
PATIENT TRANSFERRED TO ER FROM SUB ACUTE UNIT VIA AMBU BAG @ 100%. TRACH SECURED AND PATENT. PLACED PATIENT ON MECHANICAL VENTILATION WITH PREVIOUS SETTINGS. VENT PLUGGED INTO RED OUTLET. AMBU BAG/BACK UP TRACH @ BEDSIDE. ALARMS ON AND AUDIBLE. SUCTION DONE, SMALL YELLOW THICK SECRETIONS NOTED. NO COMPLICATIONS T/O TRANSPORTATION. WILL MONITOR CLOSELY. Addendum: 11/16/17 at 1706 by MARLIN AGUILAR RT Amended: Links added.
--- NOTE | 2017-11-16 17:08 | NUR ---
new iv started on left hand, 20g. blood drawn and sent to lab.
--- NOTE | 2017-11-16 17:15 | NUR ---
16 FR perales catheter inserted per sterile protocal. Immediate output 50ML of urine, yellow, cloudy.
[2017-11-16] MEDS ORDERED: SIME40DR7 GT (17:20)
[2017-11-16] MEDS ORDERED: OMEP20CA10 GT (17:20)
[2017-11-16] MEDS ORDERED: AMIN30LI4 GT (17:20)
[2017-11-16] MEDS ORDERED: ONDA4TAB8 GT (17:20)
[2017-11-16] MEDS ORDERED: NUT.237L30 GT (17:20)
[2017-11-16] MEDS ORDERED: MIDO10TA GT (17:20)
[2017-11-16] MEDS ORDERED: SENN-167 GT (17:20)
[2017-11-16] MEDS ORDERED: NYST15PO4 TP (17:20)
[2017-11-16] MEDS ORDERED: ALLA266C2 TP (17:20)
[2017-11-16] MEDS ORDERED: LORA0.5T GT (17:20)
[2017-11-16] MEDS ORDERED: FERR325T23 GT (17:20)
[2017-11-16] MEDS ORDERED: IPRA0.2S9 IH (17:20)
[2017-11-16] MEDS ORDERED: POLY15DR40 EACHEYE (17:20)
[2017-11-16] MEDS ORDERED: LANO3.5O3 EACHEYE (17:20)
[2017-11-16] MEDS ORDERED: LORA2VIA11 IVP (17:20)
[2017-11-16] MEDS ORDERED: MULT-447 GT (17:20)
[2017-11-16] MEDS ORDERED: ZINC57OI4 TP (17:20)
[2017-11-16] MEDS ORDERED: LACT20SO4 GT ×2 (17:20)
[2017-11-16] MEDS ORDERED: RIVA10TA GT (17:20)
[2017-11-16] MEDS ORDERED: HYDR1SOL TP (17:20)
[2017-11-16 17:27] LABS: APPEARANCE,URINE Clear (CLEAR); BILIRUBIN,URINE Negative (NEGATIVE); BLOOD, URINE Trace-lysed Ery/uL (NEGATIVE); COLOR,URINE Yellow (YELLOW); KETONES,URINE Negative (NEGATIVE); LEUKOCYTE ESTERASE ,URINE Moderate (NEGATIVE); NITRITE, URINE Negative (NEGATIVE); PH,URINE 5.5 (5.0-8.0); PROTEIN,URINE 30 mg/dl (NEGATIVE); UGLUCOSE Negative (NEGATIVE); UROBILINOGEN,URINE 0.2 EU/dL (0.2)
[2017-11-16 17:32] LABS: BACTERIA,URINE 2+ /HPF (None Seen); SQUAMOUS EPITHELIAL CELL,UR Few /HPF (None Seen)
[2017-11-16 17:38] LABS: BASOPHILS % (AUTO) 0.3 % (0.0-2.0); EOSINOPHILS % (AUTO) 0.6 % (0.0-6.0); HEMATOCRIT 29 % (33-45); HEMOGLOBIN 9.6 g/dL (11.5-14.8); LYMPHOCYTES # (AUTO) 1.6 /CMM (0.8-4.8); LYMPHOCYTES % (AUTO) 9.7 % (20.0-44.0); MEAN CORPUSCULAR HEMOGLOBIN 26 PG (26.0-33.0); MEAN CORPUSCULAR HGB CONC 33 g/dl (31.0-36.0); MEAN CORPUSCULAR VOLUME 79 fL (82-100); MONOCYTES # (AUTO) 0.3 /CMM (0.1-1.30); MONOCYTES % (AUTO) 1.9 % (2.0-12.0); NEUTROPHILS # (AUTO) 14.2 /CMM (1.8-8.9); NEUTROPHILS % (AUTO) 87.5 % (43.0-81.0); PLATELET COUNT (AUTO) 374 /CMM (150-450); RDW COEFFICIENT OF VARIATION 18.8 (11.5-15.0); RED BLOOD CELL COUNT(AUTO) 3.65 MIL/uL (4.0-5.2); WHITE BLOOD COUNT (AUTO) 16.2 K/uL (4.3-11.0)
[2017-11-16 17:39] LABS: CALCIUM, SERUM 10.9 mg/dL (8.5-10.1); CARBON DIOXIDE 27 mmol/L (21-32); CHLORIDE 103 mmol/L (98-107); CREATININE 0.8 mg/dL (0.6-1.3); GLUCOSE 121 mg/dL (74-106); POTASSIUM 4.2 mmol/L (3.5-5.1); SODIUM SERUM 140 mmol/L (136-145); UREA NITROGEN, BLOOD 39 mg/dL (7-18)
[2017-11-16 17:43] LABS: INR 1.01 (0.85-1.15)
[2017-11-16 17:47] LABS: TROPONIN I < 0.017 ng/mL (0.00-0.056)
[2017-11-16 17:50] LABS: ALANINE AMINOTRANSFERASE 30 U/L (12-78); ALBUMIN 3.3 g/dL (3.4-5.0); ALKALINE PHOSPHATASE 160 U/L (46-116); ASPARTATE AMINOTRANSFERASE 23 U/L (15-37); BILIRUBIN,DIRECT 0.1 mg/dL (0.0-0.2); BILIRUBIN,TOTAL 0.3 mg/dL (0.2-1.0); TOTAL PROTEIN, SERUM 10.2 g/dL (6.4-8.2)
[2017-11-16] MEDS ORDERED: VANCOMYCIN 1 GM in IV D5W 250 ML IV ONE (18:30)
[2017-11-16] MEDS ORDERED: MEROPENEM 500 MG in IV NS 0.9% 50 ML IV ONE (18:30)
[2017-11-16] MEDS ORDERED: IV NS 0.9% 1,000 ML BAG IV ONE (18:30)
--- NOTE | 2017-11-16 18:36 | NUR ---
CALLED [facility] NEPHROLOGY TOOL DESIGN ENGINEER WAS PAGED.
[2017-11-16 19:04] LABS: OCCULT BLOOD STOOL POSITIVE (NEGATIVE)
--- NOTE | 2017-11-16 19:10 | NUR ---
REPORT GIVEN TO ALEXSANDRA SIM FOR KATRIN.
--- NOTE | 2017-11-16 19:16 | NUR ---
RECEIVED REPORT FROM RONEY ALMEIDA FOR KATRIN.
--- NOTE | 2017-11-16 20:13 | NUR ---
REPORT GIVEN TO OCTAVIO GRACIA FOR KATRIN.
--- NOTE | 2017-11-16 20:27 | NUR ---
STOOL C-DIFF SAMPLE COLLECTED AND CALLED LAB FOR ROTATING FIELD ASSEMBLER
[2017-11-16 20:30] VITALS: BP 112/71
--- NOTE | 2017-11-16 21:00 | NUR ---
RN ADMITTING NOTES PATIENT RECEIVED FROM ED. PATIENT IS OBSERVED TO OBTUNDED. WITH TRACH, SHILEY XLT 6. CONNECTED TO TRACH WITH SETTINGS OF AC 12, TV 500, FIO2 30 AND PEEP 5. TOLERATING SETTINGS WELL, NO DISTRESS. AIRWAY SUCTIONED AND KEPT PATENT. CONNECTED TO TELE, ST WITH HR OF 111. PATIENT IS AFEBRILE. WITH F/C, DRAINING WITH CLEAR, YELLOW URINE. GT IN PLACE, PATENT. NOTED WITH BLACK, LIQUID STOOL. FLEXISEAL PLACED. SKIN CHECK DONE WITH CHARGE NURSE, MASOUD, PICTURES TAKEN AND FILED IN CHART. SPOKE WITH DR. DU, ADMISSION ORDERS OBTAINED, NOTED AND CARRIED OUT. ON CLOSE MONITORING.
[2017-11-16] MEDS ORDERED: DOSE PER PHARMACY (MD SPECIFY MEDICATION) 1 EA XX PRN (22:00)
[2017-11-17] VITALS: BP 105/75
[2017-11-17 04:00] VITALS: BP 111/72
[2017-11-17] MEDS: GLUCERNA 1.2 1,000 ML BOTTLE NG PRN (05:37)
[2017-11-17 06:21] LABS: BASOPHILS % (AUTO) 0.3 % (0.0-2.0); EOSINOPHILS % (AUTO) 3.3 % (0.0-6.0); HEMATOCRIT 26 % (33-45); LYMPHOCYTES # (AUTO) 2.2 /CMM (0.8-4.8); LYMPHOCYTES % (AUTO) 23.9 % (20.0-44.0); MEAN CORPUSCULAR HEMOGLOBIN 26 PG (26.0-33.0); MEAN CORPUSCULAR HGB CONC 31 g/dl (31.0-36.0); MEAN CORPUSCULAR VOLUME 84 fL (82-100); MONOCYTES # (AUTO) 0.6 /CMM (0.1-1.30); MONOCYTES % (AUTO) 6.1 % (2.0-12.0); NEUTROPHILS # (AUTO) 6.2 /CMM (1.8-8.9); NEUTROPHILS % (AUTO) 66.4 % (43.0-81.0); PLATELET COUNT (AUTO) 309 /CMM (150-450); RDW COEFFICIENT OF VARIATION 19.6 (11.5-15.0); RED BLOOD CELL COUNT(AUTO) 3.07 MIL/uL (4.0-5.2); WHITE BLOOD COUNT (AUTO) 9.4 K/uL (4.3-11.0)
[2017-11-17 06:29] LABS: CALCIUM, SERUM 9.6 mg/dL (8.5-10.1); CREATININE 0.5 mg/dL (0.6-1.3); POTASSIUM 3.7 mmol/L (3.5-5.1)
--- NOTE | 2017-11-17 06:48 | NUR ---
RN CLOSING NOTES NO ACUTE DISTRESS. AFEBRILE. SUCTIONED AIRWAY AND KEPT PATENT. REMAINS NSR AT 70s. GTF STARTED, TOLERATING WELL, MINIMAL GASTRIC RESIDUAL NOTED. F/C INTACT. FLEXISEAL INTACT. TURNED AND REPOSITIONED. SAFETY AND COMFORT ENSURED. BED IN LOW AND LOCKED POSITION. ISOLATION PRECAUTION OBSERVED. WILL ENDORSE ACCORDINGLY FOR CONTINUITY OF CARE.
[2017-11-17 08:00] VITALS: BP 99/58
--- NOTE | 2017-11-17 08:00 | NUR ---
TD/RN AM SHIFT INITIAL NOTES RECEIVED PT ASLEEP IN BED, NO GRIMACING, FEVER OR ACUTE CHANGE OF CONDITION. PT IS OBTUNDED. VENTILATOR DEPENDENT WITH RATES SET PRESCRIBED, SATURATING @ 100%, LUNG SOUNDS CLEAR, SUCTIONED FOR AIRWAY CLEARANCE. ON TELE MONITORING, SINUS RHYTHM, HR 75. IV SITE FLUSHED, PATENT, SALINE LOCKED. ON GOING GT FEEDING @ 60CC/HR, NO GASTRIC RESIDUAL, FLUSHED, PATENT. NOTED WITH GENERALIZED TRACED EDEMA. HASSAN CATHETER INTACT WITH CLEAR YELLOW URINE OUTPUT. PT IS COMFORTABLE. NO SCHEDULED AM MEDS AT THIS TIME, WILL FOLLOW-UP WITH PRIMARY FOR MED RECON. CL WITHIN REACHED, SAFETY MAINTAINED AND ISOLATION OBSERVED. ON GOING MONITORING. Addendum: 11/17/17 at 0913 by ALYSE MAYO RN ADDENDUM: RECTAL TUBE INTACT NOTED WITH MINIMAL BROWN LIQUID BOWEL.
[2017-11-17] MEDS ORDERED: IV NS 0.9% 250 ML BAG IV ONE (09:00)
[2017-11-17] MEDS ORDERED: IV NS 0.9% 250 ML IV PRN (09:00)
[2017-11-17] MEDS: MEROPENEM 1 G in IV NS 0.9% 100 ML IV SCH ×2 (09:14→16:25)
[2017-11-17] MEDS ORDERED: GLUCERNA 1.2 1,000 ML BOTTLE GT PRN (09:30)
[2017-11-17] MEDS ORDERED: ONDANSETRON 4 MG TAB.RAPDIS GT PRN (09:30)
[2017-11-17] MEDS ORDERED: LORAZEPAM INJ 2 MG/ML VIAL IVP PRN (09:30)
[2017-11-17] MEDS ORDERED: ACETAMINOPHEN 650 MG/20.3 ML UDC GT PRN (09:30)
[2017-11-17] MEDS: NYSTATIN TOP POWDER 15 GM BOTTLE TP SCH ×2 (09:30→21:00)
[2017-11-17] MEDS ORDERED: BISACODYL SUPP (10 MG) 10 MG/SUPP.RECT SUPP.RECT RC PRN (09:30)
[2017-11-17] MEDS ORDERED: LORAZEPAM 0.5 MG TABLET GT PRN (09:30)
--- NOTE | 2017-11-17 09:40 | NUR ---
RT RECEIVED PT ON TRACH ON VENT WITH NOTED SETTINGS. PACKING MACHINE OPERATOR DONE AND TRACH IS SECURE. VENT ALARMS CHECKED AND AUDIBLE. VENT PLUGGED IN RED OUTLET. AMBU BAG NOTED HOB. SX WITH MOD THK YELLOW/JOHN SECRETIONS. PT TOLERATING VENT WELL, NO SOB OR DISTRESS NOTED WILL CONTINUE TO MONITOR T/O SHIFT.
[2017-11-17] MEDS: IPRATROPIUM NEB FS 0.5 MG/2.5 ML AMPUL.NEB IH SCH ×2 (09:53→19:23)
[2017-11-17] MEDS ORDERED: FUROSEMIDE 20 MG TABLET GT SCH (10:00)
--- NOTE | 2017-11-17 10:09 | NUR ---
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 PT ALSO NOTED TO HAVE RECTAL TUBE WITH SOME LEAKAGE. DEFER TO MD FOR SCAB UNDER LOWER LIP. ALL SKIN PROTECTION RECOMMENDATIONS DISCUSSED WITH NURSING STAFF. PT ON FIRST STEP MATTRESS. WILL SEE PRN. IN AGREEMENT WITH PLAN OF CARE. CURRENT CARMLEINA SCORE IS 8. Addendum: 11/17/17 at 1011 by REGINA PHAM WNDNU Amended: Links added.
[2017-11-17] MEDS: FERROUS SULFATE (325 MG) 325 MG/TAB TABLET GT SCH ×2 (10:29→16:25)
[2017-11-17] MEDS: PROSOURCE / PROSTAT (PYXIS) 30 ML UDC GT SCH ×2 (10:29→16:25)
[2017-11-17] MEDS: BACLOFEN (10 MG) 10 MG TABLET GT SCH ×2 (10:29→17:24)
[2017-11-17] MEDS: Z GUARD REMEDY 2 OZ OINT TP SCH ×2 (10:29→21:00)
[2017-11-17] MEDS: LACTULOSE 10 G/15 ML UDC (PYXIS) GT SCH (10:29)
[2017-11-17] MEDS ORDERED: LACTULOSE 10 G/15 ML UDC (PYXIS) GT PRN (10:30)
[2017-11-17] MEDS: LANOLIN/MIN OIL/PETROLAT,WHT 3.5 GM TUBE EACHEYE SCH ×2 (10:30→21:18)
[2017-11-17] MEDS: SIMETHICONE SUSP 40 MG/0.6 ML BOTTLE GT SCH ×2 (10:32→21:21)
[2017-11-17] MEDS: MIDODRINE HCL 2.5 MG TABLET GT SCH ×2 (11:00→21:21)
[2017-11-17 12:00] VITALS: BP 101/69
[2017-11-17] MEDS: ZINC OXIDE 30 GM TUBE TP SCH ×2 (12:37→21:24)
[2017-11-17] MEDS: HYDROGEN PEROXIDE 480 ML BOTTLE TP SCH ×2 (12:37→21:18)
[2017-11-17] MEDS: POLYVINYL ALCOHOL 15 ML BOTTLE EACHEYE SCH ×3 (12:37→21:19)
[2017-11-17] MEDS: IV D5W 1,000 ML IV PRN (12:40)
[2017-11-17 16:00] VITALS: BP 125/83
[2017-11-17] MEDS: RIVAROXABAN 10 MG TABLET GT SCH (16:26)
--- NOTE | 2017-11-17 17:00 | NUR ---
TD/RN AFTERNOON ROUNDS PM CARE PROVIDED, NO ACUTE CHANGE OF CONDITION NOTED. ON GOING MONITORING.
--- NOTE | 2017-11-17 19:08 | NUR ---
TD/RN AM SHIFT END NOTES ALL NEEDS MET. NO ACUTE CHANGE OF CONDITION NOTED DURING THE SHIFT. PT ENDORSED TO PM NURSE TO CONTINUE CARE. CL WITHIN REACHED, SAFETY MAINTAINED AND ISOLATION OBSERVED.
[2017-11-17 20:00] VITALS: BP 124/70
[2017-11-17] MEDS: SENNOSIDES 8.6 MG TABLET GT SCH (21:15)
[2017-11-18] VITALS (7 sets, daily range): BP systolic 90–124; BP diastolic 54–89
[2017-11-18] MEDS: MEROPENEM 1 G in IV NS 0.9% 100 ML IV SCH ×3 (01:25→16:13)
[2017-11-18] MEDS: GLUCERNA 1.2 1,000 ML BOTTLE NG PRN ×2 (01:50→21:35)
[2017-11-18] MEDS: BACLOFEN (10 MG) 10 MG TABLET GT SCH ×2 (05:05→17:33)
[2017-11-18] MEDS: IV D5W 1,000 ML IV PRN ×2 (05:05→21:33)
[2017-11-18 06:41] LABS: BASOPHILS % (AUTO) 0.1 % (0.0-2.0); EOSINOPHILS % (AUTO) 2.6 % (0.0-6.0); HEMATOCRIT 26 % (33-45); HEMOGLOBIN 7.9 g/dL (11.5-14.8); LYMPHOCYTES # (AUTO) 1.2 /CMM (0.8-4.8); LYMPHOCYTES % (AUTO) 15.2 % (20.0-44.0); MEAN CORPUSCULAR HEMOGLOBIN 26 PG (26.0-33.0); MEAN CORPUSCULAR HGB CONC 31 g/dl (31.0-36.0); MEAN CORPUSCULAR VOLUME 83 fL (82-100); MONOCYTES # (AUTO) 0.5 /CMM (0.1-1.30); MONOCYTES % (AUTO) 6.8 % (2.0-12.0); NEUTROPHILS % (AUTO) 75.3 % (43.0-81.0); PLATELET COUNT (AUTO) 263 /CMM (150-450); WHITE BLOOD COUNT (AUTO) 7.9 K/uL (4.3-11.0)
[2017-11-18 06:55] LABS: CALCIUM, SERUM 9.3 mg/dL (8.5-10.1); CREATININE 0.5 mg/dL (0.6-1.3); MAGNESIUM 1.8 mg/dL (1.8-2.4); PHOSPHORUS 2.6 mg/dL (2.5-4.9); POTASSIUM 3.8 mmol/L (3.5-5.1)
--- NOTE | 2017-11-18 07:00 | NUR ---
RN NOTES RECEIVED PT ON BED, OBTUNDED , VENT/ TRACH DEPENDENT, TOLERATING CURRENT VENT SETTING WELL, O2 SAT 99%, TRACH SUCTIONING DONE, FOR AIRWAY CLEARANCE . ON TELE SR , HR IN 70'S , L HAND AND R HAND IV SITES G 20 , CDI, GENERALIZED EDEMA NOTED , TF GLUCERNA AT 60CC/HR RUNNING VIA GT, TOLERATING WELL, D5W AT 80CC/HR RUNNING VIA R HAND IV SITE , HASSAN CATHETER INTACT WITH CLEAR YELLOW URINE OUTPUT. RECTAL TUBE INTACT WITH MINIMAL BROWN LIQUID BOWEL. SR UP x3, CALL LIGHT WITHIN EASY REACH, BED LOCKED AND IN LOWEST POSITION , CONTINUE TO MONITOR.
[2017-11-18] MEDS: IPRATROPIUM NEB FS 0.5 MG/2.5 ML AMPUL.NEB IH SCH ×2 (07:46→19:41)
[2017-11-18] MEDS: FERROUS SULFATE (325 MG) 325 MG/TAB TABLET GT SCH ×2 (08:08→16:15)
[2017-11-18] MEDS: LACTULOSE 10 G/15 ML UDC (PYXIS) GT SCH (08:08)
[2017-11-18] MEDS: MIDODRINE HCL 2.5 MG TABLET GT SCH ×2 (08:09→21:18)
[2017-11-18] MEDS: PROSOURCE / PROSTAT (PYXIS) 30 ML UDC GT SCH ×2 (08:10→16:13)
[2017-11-18] MEDS: PANTOPRAZOLE 40 MG/PACK PACK GT SCH (08:10)
[2017-11-18] MEDS: HYDROGEN PEROXIDE 480 ML BOTTLE TP SCH ×2 (08:12→21:18)
[2017-11-18] MEDS: ZINC OXIDE 30 GM TUBE TP SCH ×2 (08:13→21:21)
[2017-11-18] MEDS: Z GUARD REMEDY 2 OZ OINT TP SCH ×2 (08:13→21:20)
[2017-11-18] MEDS: SIMETHICONE SUSP 40 MG/0.6 ML BOTTLE GT SCH ×2 (08:14→21:20)
[2017-11-18] MEDS: POLYVINYL ALCOHOL 15 ML BOTTLE EACHEYE SCH ×4 (08:15→21:21)
--- NOTE | 2017-11-18 14:01 | NUR ---
RT NOTE: PATIENT RECEIVED TRACHED ON ESPRIT VENT. ALARMS VERIFIED AND AUDIBLE. SUCTIONED AND LAVAGED MODERATE-LARGE AMOUNT OF THICK JOHN SECRETIONS. VENT PLUGGED INTO RED OUTLET. AMBU BAG AT [facility].
[2017-11-18] MEDS: RIVAROXABAN 10 MG TABLET GT SCH (16:14)
--- NOTE | 2017-11-18 18:29 | NUR ---
RN NOTES PT STABLE , TRACH SUCTIONING DONE, NO DISTRESS NOTED ,HASSAN DRAINING TO GRAVITY , SR UP x3, CALL LIGHT WITHIN EASY REACH, BED LOCKED AND IN LOWEST POSITION , TOLERATING TF WELL, WILL ENDOSE TO SKID WRAPPER NURSE FOR KATRIN .
--- NOTE | 2017-11-18 19:42 | NUR ---
PT RECEIVED TRACH WITH SHILEY XLT 6 ON THE VENT WITH NOTED SETTINGS. VENT ALARMS ARE SET AND AUDIBLE, AMBU BAG @ BEDSIDE. SIZER HAND CUFF PRESSURE NOTED. VENT IS PLUGGED INTO RED OUTLET. BREATHING TX GIVEN PER MD'S ORDERED. NO ADVERSE REACTION NOTED. PT SX'D MODERATE THICK PALE YELLOW SECRETIONS WITH BLOOD TINGED. NO RESPIRATORY DISTRESS NOTED AT THIS TIME, WILL CONTINUE TO MONITOR
[2017-11-18] MEDS: MULTIVIT, IRON, MIN NO. 8, FA 1 TAB GT SCH (21:18)
[2017-11-18] MEDS: LANOLIN/MIN OIL/PETROLAT,WHT 3.5 GM TUBE EACHEYE SCH (21:20)
[2017-11-18] MEDS: SENNOSIDES 8.6 MG TABLET GT SCH (21:23)
[2017-11-19] VITALS (8 sets, daily range): BP systolic 78–120; BP diastolic 45–74
[2017-11-19] MEDS: MEROPENEM 1 G in IV NS 0.9% 100 ML IV SCH ×3 (00:12→16:17)
[2017-11-19] MEDS: BACLOFEN (10 MG) 10 MG TABLET GT SCH ×2 (05:07→18:23)
[2017-11-19] MEDS: IPRATROPIUM NEB FS 0.5 MG/2.5 ML AMPUL.NEB IH SCH ×2 (08:25→20:12)
[2017-11-19] MEDS: FERROUS SULFATE (325 MG) 325 MG/TAB TABLET GT SCH ×2 (08:42→16:17)
[2017-11-19] MEDS: LACTULOSE 10 G/15 ML UDC (PYXIS) GT SCH (08:42)
[2017-11-19] MEDS: PROSOURCE / PROSTAT (PYXIS) 30 ML UDC GT SCH ×2 (08:43→16:17)
[2017-11-19] MEDS: PANTOPRAZOLE 40 MG/PACK PACK GT SCH (08:43)
[2017-11-19] MEDS: MIDODRINE HCL 2.5 MG TABLET GT SCH ×2 (08:43→20:22)
[2017-11-19] MEDS: ZINC OXIDE 30 GM TUBE TP SCH ×2 (08:44→20:24)
[2017-11-19] MEDS: HYDROGEN PEROXIDE 480 ML BOTTLE TP SCH ×2 (08:44→20:23)
[2017-11-19] MEDS: SIMETHICONE SUSP 40 MG/0.6 ML BOTTLE GT SCH ×2 (08:45→20:25)
[2017-11-19] MEDS: POLYVINYL ALCOHOL 15 ML BOTTLE EACHEYE SCH ×4 (08:45→20:23)
[2017-11-19] MEDS: Z GUARD REMEDY 2 OZ OINT TP SCH ×2 (08:46→20:23)
[2017-11-19 12:43] LABS: IRON, SERUM 37 ug/dl (50-175); TOTAL IRON BINDING CAPACITY 175 ug/dl (250-450)
[2017-11-19 12:47] LABS: FERRITIN 728 ng/mL (8-388)
[2017-11-19] MEDS: IV D5W 1,000 ML IV PRN (13:25)
[2017-11-19] MEDS: GLUCERNA 1.2 1,000 ML BOTTLE NG PRN (15:22)
[2017-11-19] MEDS ORDERED: FEE PK DOSING 1 MIN EA MC ONE (19:37)
--- NOTE | 2017-11-19 19:55 | NUR ---
RT PATIENT REC'D TRACHED ON [facility] VENT WITH ORDERED SETTINGS EUGENIO WELL. VENT ALARMS CHECKED + AUDIBLE. CUFF PRESSURE CHECKED CADMIUM BURNER. PATIENT NON RESPONSIVE TO VERBAL COMMANDS, NO SOB NOTED. PATIENT SUCTIONED WITH MOD AMT OF PALE SEMITHICK SECRETIONS. B/S TEQUILA. AMBU BAG AT HOB Addendum: 11/19/17 at 2221 by ANNAMARIA RICHTER RT Amended: Links added.
[2017-11-19] MEDS: VANCOMYCIN 1 GM in IV D5W 250 ML IV SCH (20:16)
[2017-11-19] MEDS: MULTIVIT, IRON, MIN NO. 8, FA 1 TAB GT SCH (20:22)
[2017-11-19] MEDS: SENNOSIDES 8.6 MG TABLET GT SCH (21:34)
[2017-11-19] MEDS: PIPERACILLIN /TAZOBACTAM 3.375 G in IV D5W 50 ML IV SCH (21:34)
[2017-11-19] MEDS: LANOLIN/MIN OIL/PETROLAT,WHT 3.5 GM TUBE EACHEYE SCH (21:34)
[2017-11-20] VITALS: BP 119/52
[2017-11-20 04:00] VITALS: BP 126/76
[2017-11-20] MEDS: BACLOFEN (10 MG) 10 MG TABLET GT SCH ×2 (05:03→17:33)
[2017-11-20] MEDS: PIPERACILLIN /TAZOBACTAM 3.375 G in IV D5W 50 ML IV SCH ×3 (05:03→17:34)
[2017-11-20] MEDS: GLUCERNA 1.2 1,000 ML BOTTLE NG PRN ×2 (05:05→23:59)
[2017-11-20] MEDS: IV D5W 1,000 ML IV PRN (06:03)
[2017-11-20 06:34] LABS: BASOPHILS % (AUTO) 0.3 % (0.0-2.0); EOSINOPHILS % (AUTO) 4.9 % (0.0-6.0); HEMATOCRIT 27 % (33-45); HEMOGLOBIN 8.3 g/dL (11.5-14.8); LYMPHOCYTES # (AUTO) 1.8 /CMM (0.8-4.8); LYMPHOCYTES % (AUTO) 27.6 % (20.0-44.0); MEAN CORPUSCULAR HEMOGLOBIN 26 PG (26.0-33.0); MEAN CORPUSCULAR HGB CONC 31 g/dl (31.0-36.0); MEAN CORPUSCULAR VOLUME 83 fL (82-100); MONOCYTES # (AUTO) 0.8 /CMM (0.1-1.30); MONOCYTES % (AUTO) 11.6 % (2.0-12.0); NEUTROPHILS # (AUTO) 3.6 /CMM (1.8-8.9); NEUTROPHILS % (AUTO) 55.6 % (43.0-81.0); PLATELET COUNT (AUTO) 330 /CMM (150-450); RDW COEFFICIENT OF VARIATION 19.3 (11.5-15.0); RED BLOOD CELL COUNT(AUTO) 3.23 MIL/uL (4.0-5.2); WHITE BLOOD COUNT (AUTO) 6.5 K/uL (4.3-11.0)
[2017-11-20 06:57] LABS: CREATININE 0.5 mg/dL (0.6-1.3); PHOSPHORUS 2.6 mg/dL (2.5-4.9)
[2017-11-20] MEDS: IPRATROPIUM NEB FS 0.5 MG/2.5 ML AMPUL.NEB IH SCH ×2 (07:55→20:02)
[2017-11-20 08:00] VITALS: BP 109/60
[2017-11-20] MEDS: PROSOURCE / PROSTAT (PYXIS) 30 ML UDC GT SCH ×2 (08:23→16:03)
[2017-11-20] MEDS: MIDODRINE HCL 2.5 MG TABLET GT SCH ×2 (08:23→20:17)
[2017-11-20] MEDS: FERROUS SULFATE (325 MG) 325 MG/TAB TABLET GT SCH ×2 (08:24→16:03)
[2017-11-20] MEDS: PANTOPRAZOLE 40 MG VIAL IV SCH (08:24)
[2017-11-20] MEDS: SIMETHICONE SUSP 40 MG/0.6 ML BOTTLE GT SCH ×2 (08:25→20:39)
[2017-11-20] MEDS: HYDROGEN PEROXIDE 480 ML BOTTLE TP SCH ×2 (08:25→20:18)
[2017-11-20] MEDS: POLYVINYL ALCOHOL 15 ML BOTTLE EACHEYE SCH ×4 (08:26→20:39)
[2017-11-20] MEDS: ZINC OXIDE 30 GM TUBE TP SCH ×2 (08:26→20:19)
[2017-11-20] MEDS: Z GUARD REMEDY 2 OZ OINT TP SCH ×2 (08:27→20:19)
[2017-11-20] MEDS: LACTULOSE 10 G/15 ML UDC (PYXIS) GT SCH (08:28)
[2017-11-20 12:00] VITALS: BP 102/47
[2017-11-20 16:00] VITALS: BP 95/51
[2017-11-20 20:00] VITALS: BP 103/42
--- NOTE | 2017-11-20 20:00 | NUR ---
OCTAVIO RN NOTES RECEIVED BEDSIDE REPORT FROM AM NURSE. PT IS OBTUNDED WITH EYES OPEN, DROOLING A LOT. SR ON REMOTE ENCODING OPERATIONS SUPERVISOR WITH HR OF 77, ON VENT AND TOLERATING VENT SETTINGS WELL. R HAND 20G AND L HAND 20G IV LINES NOTED, PATIENT, INTACT WITH D5W 80ML/HR INFUSING. HASSAN CATH. AND FLEXI IS IN PLACE DRAINING. GTF GLUCERNA 1.2 @ 60ML/HR WITH POSITIVE PLACEMENT NOTED.. ALL SAFETY MEASURES ARE IMPLEMENTED, BED IN LOW, LOCKED POSITION, CALL LIGHT IN REACH. WILL CONT. TO MONITOR.
[2017-11-20] MEDS: MULTIVIT, IRON, MIN NO. 8, FA 1 TAB GT SCH (20:15)
[2017-11-20] MEDS: VANCOMYCIN 1 GM in IV D5W 250 ML IV SCH (20:15)
[2017-11-20] MEDS: SENNOSIDES 8.6 MG TABLET GT SCH (22:00)
[2017-11-20] MEDS: LANOLIN/MIN OIL/PETROLAT,WHT 3.5 GM TUBE EACHEYE SCH (23:22)
[2017-11-21] VITALS: BP 103/78
[2017-11-21] MEDS: PIPERACILLIN /TAZOBACTAM 3.375 G in IV D5W 50 ML IV SCH ×5 (00:07→23:07)
--- NOTE | 2017-11-21 00:48 | NUR ---
1907- spoke to Dr. Alfaro and made him aware that pt.'s HR has been in the 140s-150s x i hour, notified him that pt. is also tachypneic with RR in the 30s, and was given Ativan by RONEY Moralez as ordered, no new order received from Dr. Alfaro, he said call Civil Structural Engineer on board and if there is no service administrator then it can wait in the morning. Pt. is afebrile, frequent suctioning done and noted with copious amount of thick yellow secretions, repositioned for comfort, HOB kept elevated at all times for maximum oxygenation, O2 saturation 99%-100%. RT at bedside.
--- NOTE | 2017-11-21 01:35 | NUR ---
0115 Called pt.'s rope cleaner and spoke with Dr. Amador regarding pt.'s change in condition with order made. Order noted and carried out. Wiliam from pharmacy notified of new order.
[2017-11-21] MEDS: LORAZEPAM INJ 2 MG/ML VIAL IV PRN (01:43)
[2017-11-21 04:00] VITALS: BP 97/41
[2017-11-21] MEDS: BACLOFEN (10 MG) 10 MG TABLET GT SCH ×2 (05:35→17:15)
[2017-11-21 06:50] LABS: CALCIUM, SERUM 9.9 mg/dL (8.5-10.1); CREATININE 0.6 mg/dL (0.6-1.3); POTASSIUM 3.7 mmol/L (3.5-5.1)
[2017-11-21] MEDS: IV D5W 1,000 ML IV PRN ×2 (07:57→23:21)
[2017-11-21 08:00] VITALS: BP 126/76
--- NOTE | 2017-11-21 08:00 | NUR ---
TELE1/RN AM SHIFT INITIAL NOTES RECEIVED PT ASLEEP IN BED, NO ACUTE CHANGE OF CONDITION OR GRIMACING NOTED. PT IS OBTUNDED. VENTILATOR DEPENDENT WITH RATES SET PRESCRIBED, SATURATING @ 100%, LUNG SOUNDS DIMINISHED, SUCTIONED FOR AIRWAY CLEARANCE. ON TELE MONITORING, SINUS RHYTHM, HR 95. WITH ON GOING IV INFUSION OF D5W @ 80CC/HR, IV SITE PATENT, WITH NO S/S OF INFECTION. ON GOING GT FEEDING @ 60CC/HR, NO GASTRIC RESIDUAL, FLUSHED, PATENT. NOTED WITH GENERALIZED TRACED EDEMA. HASSAN CATHETER INTACT WITH CLEAR YELLOW URINE OUTPUT. RECTAL TUBE INTACT NOTED WITH BROWN LIQUID BOWEL. PT IS COMFORTABLE. NO SCHEDULED AM MEDS AT THIS TIME. CL WITHIN REACHED AND SAFETY MAINTAINED. ON GOING MONITORING.
[2017-11-21] MEDS: IPRATROPIUM NEB FS 0.5 MG/2.5 ML AMPUL.NEB IH SCH ×2 (08:01→19:36)
--- NOTE | 2017-11-21 08:12 | NUR ---
RT PATIENT REC'D TRACHED ON [facility] VENT WITH ORDERED SETTINGS EUGENIO WELL. VENT ALARMS CHECKED + AUDIBLE. CUFF PRESSURE CHECKED CD REACTOR OPERATOR HEAD. PATIENT NON RESPONSIVE TO VERBAL COMMANDS, NO SOB NOTED. PATIENT SUCTIONED WITH MOD AMT OF PALE SEMITHICK SECRETIONS. B/S TEQUILA. AMBU BAG AT HOB Addendum: 11/21/17 at 0845 by ANNAMARIA RICHTER RT Amended: Links added.
[2017-11-21] MEDS: POLYVINYL ALCOHOL 15 ML BOTTLE EACHEYE SCH ×4 (08:59→21:27)
[2017-11-21] MEDS: HYDROGEN PEROXIDE 480 ML BOTTLE TP SCH ×2 (08:59→21:28)
[2017-11-21] MEDS: SIMETHICONE SUSP 40 MG/0.6 ML BOTTLE GT SCH ×2 (08:59→21:27)
[2017-11-21] MEDS: ZINC OXIDE 30 GM TUBE TP SCH ×2 (09:00→21:27)
[2017-11-21] MEDS: Z GUARD REMEDY 2 OZ OINT TP SCH ×2 (09:00→21:29)
[2017-11-21] MEDS: PANTOPRAZOLE 40 MG VIAL IV SCH (09:01)
[2017-11-21] MEDS: FERROUS SULFATE (325 MG) 325 MG/TAB TABLET GT SCH ×2 (09:01→17:14)
[2017-11-21] MEDS: LACTULOSE 10 G/15 ML UDC (PYXIS) GT SCH (09:01)
[2017-11-21] MEDS: PROSOURCE / PROSTAT (PYXIS) 30 ML UDC GT SCH ×2 (09:01→17:14)
[2017-11-21] MEDS: MIDODRINE HCL 2.5 MG TABLET GT SCH ×2 (09:02→21:27)
[2017-11-21 12:00] VITALS: BP 116/52
--- NOTE | 2017-11-21 13:19 | NUR ---
TELE1/TREE TAPPING LABORER OF CARE PT ENDORSED TO NURSE CAMILO TO CONTINUE CARE.
[2017-11-21 16:00] VITALS: BP 100/43
[2017-11-21] MEDS: GLUCERNA 1.2 1,000 ML BOTTLE NG PRN (17:30)
--- NOTE | 2017-11-21 18:23 | NUR ---
ANIMAL PHYSIOLOGIST NOTES REATTEMPTED TO INSERT FLEXI SEAL AT LEAST 3 TIMES BUT WOULD NOT STAY, PUT DIAPER ON PATIENT AND REMOVED FLEXI SEAL.
--- NOTE | 2017-11-21 18:38 | NUR ---
BOOKKEEPING MACHINE MECHANIC ENDING NOTES PT HAS NO ACUTE CHANGES, BED BATH PROVIDED,. WOUND TX DONE, SUCTIONED AND CLEANSED, HASSAN CATH DRAINING URINE VIA GRAVITY, OBTUNDED NON VERBAL, ON TELE MON SR 87, IV SITE INTACT AND PATENT, GTUBE FEEDING TOLERATING WELL, FLEXI SEAL NOT INSERTED SINCE PT IS NON COMPLIANT AND WILL NOT STAY IN PLACE, KCI MATTRESS, VENT SETTINGS TOLERATING WELL NO ACUTE CHANGES, WILL ENDORSE TO PM NURSE.
--- NOTE | 2017-11-21 19:30 | NUR ---
UPHOLSTERY ESTIMATOR INITIAL NOTE PT RECEIVED WITH OPEN EYES AND OBTUNDED. ON MECH VENT WITH SETTINGS WELL TOLERATED AND SATURATING WELL. HOB ELEVATED AND ON ASPIRATION PRECAUTIONS. GT FEEDING WELL TOLERATED AND SATURATING WELL. HASSAN CATHETER IN PLACE AND DRAINING BY GRAVITY. WILL CONTINUE TO MONITOR.
[2017-11-21 20:00] VITALS: BP 104/59
[2017-11-21] MEDS: VANCOMYCIN 1 GM in IV D5W 250 ML IV SCH (20:29)
[2017-11-21] MEDS: MULTIVIT, IRON, MIN NO. 8, FA 1 TAB GT SCH (21:25)
[2017-11-21] MEDS: LANOLIN/MIN OIL/PETROLAT,WHT 3.5 GM TUBE EACHEYE SCH (21:29)
[2017-11-21] MEDS: SENNOSIDES 8.6 MG TABLET GT SCH (21:29)
[2017-11-22] VITALS (9 sets, daily range): BP systolic 93–128; BP diastolic 41–68
[2017-11-22] MEDS: BACLOFEN (10 MG) 10 MG TABLET GT SCH ×2 (05:40→17:12)
[2017-11-22] MEDS: PIPERACILLIN /TAZOBACTAM 3.375 G in IV D5W 50 ML IV SCH ×4 (05:40→23:32)
[2017-11-22] MEDS: GLUCERNA 1.2 1,000 ML BOTTLE NG PRN (05:41)
[2017-11-22 06:16] LABS: BASOPHILS % (AUTO) 0.5 % (0.0-2.0); EOSINOPHILS % (AUTO) 7.7 % (0.0-6.0); HEMATOCRIT 25 % (33-45); HEMOGLOBIN 7.9 g/dL (11.5-14.8); LYMPHOCYTES # (AUTO) 1.4 /CMM (0.8-4.8); LYMPHOCYTES % (AUTO) 25.8 % (20.0-44.0); MEAN CORPUSCULAR HEMOGLOBIN 26 PG (26.0-33.0); MEAN CORPUSCULAR HGB CONC 31 g/dl (31.0-36.0); MEAN CORPUSCULAR VOLUME 82 fL (82-100); MONOCYTES # (AUTO) 0.4 /CMM (0.1-1.30); MONOCYTES % (AUTO) 7.5 % (2.0-12.0); NEUTROPHILS # (AUTO) 3.3 /CMM (1.8-8.9); NEUTROPHILS % (AUTO) 58.5 % (43.0-81.0); PLATELET COUNT (AUTO) 271 /CMM (150-450); RDW COEFFICIENT OF VARIATION 19.3 (11.5-15.0); WHITE BLOOD COUNT (AUTO) 5.6 K/uL (4.3-11.0)
[2017-11-22 06:34] LABS: CALCIUM, SERUM 10.1 mg/dL (8.5-10.1); CREATININE 0.5 mg/dL (0.6-1.3); PHOSPHORUS 3.5 mg/dL (2.5-4.9); POTASSIUM 4.2 mmol/L (3.5-5.1)
--- NOTE | 2017-11-22 06:47 | NUR ---
FILTRATION OPERATOR CLOSING NOTE PATIENT TEMPERATURE 94.1 TYMPANIC AND DENISA HUGGER PUT ON PATIENT. ALL NEEDS ATTENDED TO PROMPTLY. ALL SAFETY MEASURES IN PLACE. VENT SETTINGS WELL TOLERATED. SUCTIONED AND ORAL CARE PROVIDED. KEPT CLEAN AND DRY. REPOSITIONED Q2H. WILL ENDORSE TO NEXT SHIFT FOR CONTINUITY OF CARE.
--- NOTE | 2017-11-22 07:00 | NUR ---
RN NOTES RECEIVED PT ON BED, OBTUNDED, VENT/ TRACH DEPENDENT, TRACH CARE DONE, RESPIRATION EVEN AND UNLABORED, ON TELE SR HR IN 70'S , HASSAN DRINING TO GRAVITY WITH YELLOW URINE, GLUCERNA AT 60CC/HR RUNNING VIA GT , NO RESIDUAL NOTED, L HAND AND R HAND IV SITES CDI, SR UP x3, CALL LIGHT WITHIN EASY REACH, BED LOCKED AND IN LOWEST POSITION, CONTINUE TO MONITOR
[2017-11-22] MEDS: IPRATROPIUM NEB FS 0.5 MG/2.5 ML AMPUL.NEB IH SCH ×2 (07:54→20:16)
--- NOTE | 2017-11-22 07:55 | NUR ---
RT PATIENT REC'D TRACHED ON [facility] VENT WITH ORDERED SETTINGS EUGENIO WELL. VENT ALARMS CHECKED + AUDIBLE. CUFF PRESSURE CHECKED PACKER OPERATOR AUTOMATIC. PATIENT NON RESPONSIVE TO VERBAL COMMANDS, NO SOB NOTED. PATIENT SUCTIONED WITH MOD AMT OF PALE SEMITHICK SECRETIONS. B/S TEQUILA. AMBU BAG AT HOB Addendum: 11/22/17 at 1543 by ANNAMARIA RICHTER RT Amended: Links added.
[2017-11-22] MEDS: FERROUS SULFATE (325 MG) 325 MG/TAB TABLET GT SCH ×2 (08:16→17:12)
[2017-11-22] MEDS: POLYVINYL ALCOHOL 15 ML BOTTLE EACHEYE SCH ×4 (08:16→20:40)
[2017-11-22] MEDS: PANTOPRAZOLE 40 MG VIAL IV SCH (08:16)
[2017-11-22] MEDS: MIDODRINE HCL 2.5 MG TABLET GT SCH ×2 (08:17→20:54)
[2017-11-22] MEDS: SIMETHICONE SUSP 40 MG/0.6 ML BOTTLE GT SCH ×2 (08:17→20:41)
[2017-11-22] MEDS: HYDROGEN PEROXIDE 480 ML BOTTLE TP SCH ×2 (08:18→20:43)
[2017-11-22] MEDS: ZINC OXIDE 30 GM TUBE TP SCH ×2 (08:18→20:42)
[2017-11-22] MEDS: PROSOURCE / PROSTAT (PYXIS) 30 ML UDC GT SCH ×2 (08:18→17:12)
[2017-11-22] MEDS: Z GUARD REMEDY 2 OZ OINT TP SCH ×2 (08:19→20:42)
[2017-11-22] MEDS: IV D5W 1,000 ML IV PRN (13:59)
--- NOTE | 2017-11-22 14:30 | NUR ---
RN NOTES CONSENT OBTAIN FOR PT'S MOM FOE EGD AND COLOSCOPY ON WEDNESDAY.
--- NOTE | 2017-11-22 18:24 | NUR ---
RN NOTES TRACH SUCTIONING DONE , VSS STABLE , TOLERATING TF WELL, D5W AT 80CC/HR RUNNING VIA R HAND IV SITE , HASSAN DRAINING TO GRAVITY , SR UP x3, CALL LIGHT WITHIN EASY REACH, BED LOCKED AND IN LOWEST POSITION , WILL ENDORSE TO SEA KAYAKING GUIDE NURSE FOR KATRIN
--- NOTE | 2017-11-22 20:00 | NUR ---
TELE 1 RN NOTE PT IN BED OBTUNDED. ON VENT/TRACH TOLERATING SETTINGS WELL. NO DISTRESS OR DISCOMFORT NOTED. FREQUENTLY SUCTION DONE. WHITE THICK SECRETIONS NOTED. IVF D5W INFUSING AT 80 ML/HR, NO S/S OF INFILTRATION NOTED. BILATERAL HAND WITH SWELLING NOTED. GTF GLUCERNA 1.2 LAURA INFUSING AT 60 ML/HR, 0 ML RESIDUAL NOTED. KEPT HER DRY AND CLEAN. ALL NEEDS ATTENDED. SIDE RAILS UP X 3 AND CALL LIGHT WITHIN REACH. VSS. REPOSITION HER Q2H, KEPT HOB ELEVATED. CONTINUE TO MONITOR HER.
[2017-11-22] MEDS: VANCOMYCIN 1 GM in IV D5W 250 ML IV SCH (20:35)
[2017-11-22] MEDS: LANOLIN/MIN OIL/PETROLAT,WHT 3.5 GM TUBE EACHEYE SCH (20:41)
[2017-11-22] MEDS: SENNOSIDES 8.6 MG TABLET GT SCH (20:54)
[2017-11-22] MEDS: MULTIVIT, IRON, MIN NO. 8, FA 1 TAB GT SCH (20:55)
--- NOTE | 2017-11-22 22:30 | NUR ---
TELE 1 RN NOTE IV LINE IN LT HAND BECOME INFILTRATED. DC'D LINE. NURSE TRAVIS INSERTED NEW LINE IN PEACE #22 G WITH GOOD BACKFLOW OF BLOOD. RESUMED IVF. NO S/S OF INFILTRATION NOTED.
[2017-11-23] VITALS: BP 118/69
[2017-11-23] MEDS ORDERED: MAGNESIUM CITRATE 296 ML BOTTLE PO STA (00:10)
[2017-11-23] MEDS ORDERED: PEG 3350/NA SULF,BICARB,CL/KCL 4,000 ML BOTTLE PO STA (00:10)
[2017-11-23] MEDS ORDERED: NA PHOS,M-B/NA PHOS,DI-BA 1 EA ENEMA RC PRN (00:30)
[2017-11-23 04:00] VITALS: BP 103/55
[2017-11-23] MEDS: GLUCERNA 1.2 1,000 ML BOTTLE NG PRN (04:11)
[2017-11-23] MEDS: PIPERACILLIN /TAZOBACTAM 3.375 G in IV D5W 50 ML IV SCH ×4 (06:35→23:06)
[2017-11-23] MEDS: BACLOFEN (10 MG) 10 MG TABLET GT SCH ×2 (06:35→17:00)
--- NOTE | 2017-11-23 07:00 | NUR ---
RN NOTES RECEIVED PT ON BED, OBTUNDED. ON VENT/TRACH TOLERATING CURRENT VENT SETTINGS WELL. NO DISTRESS NOTED, TRACH CARE AND SUCTION DONE. ON TELE HR IN HIGH 60'S, SR , IVF D5W AT 80 CC/HR RUNNING VIA R UPPER ARM IV G 22, SITE CDI, BILATERAL HAND WITH SWELLING NOTED. TF GLUCERNA INFUSING AT 60 ML/HR, TOLERATING WELL, NO RESIDUAL NOTED, HOB ELEVATED, SR UP x3, KEPT HER DRY AND CLEAN. ALL NEEDS ATTENDED. SIDE RAILS UP X 3 , CALL LIGHT WITHIN EASY REACH. BED LOCKED AND IN LOWEST POSITION , CONTINUE TO MONITOR .
--- NOTE | 2017-11-23 07:04 | NUR ---
TELE 1 RN NOTE PT IN BED OBTUNDED. NO DISTRESS NOTED. NO CHANGE IN CONDITION. REPORT GIVEN TO DAY SHIFT RN TO CONTINUE TO MONITOR.
[2017-11-23 07:20] LABS: CALCIUM, SERUM 9.8 mg/dL (8.5-10.1); CREATININE 0.6 mg/dL (0.6-1.3); POTASSIUM 3.6 mmol/L (3.5-5.1)
[2017-11-23] MEDS: IPRATROPIUM NEB FS 0.5 MG/2.5 ML AMPUL.NEB IH SCH ×2 (07:35→19:16)
[2017-11-23 08:00] VITALS: BP 92/42
[2017-11-23] MEDS: FERROUS SULFATE (325 MG) 325 MG/TAB TABLET GT SCH ×2 (08:15→16:58)
[2017-11-23] MEDS: PANTOPRAZOLE 40 MG VIAL IV SCH (08:15)
[2017-11-23] MEDS: MIDODRINE HCL 2.5 MG TABLET GT SCH ×2 (08:16→21:31)
[2017-11-23] MEDS: POLYVINYL ALCOHOL 15 ML BOTTLE EACHEYE SCH ×4 (08:17→21:22)
[2017-11-23] MEDS: HYDROGEN PEROXIDE 480 ML BOTTLE TP SCH ×2 (08:17→21:22)
[2017-11-23] MEDS: Z GUARD REMEDY 2 OZ OINT TP SCH ×2 (08:17→21:24)
[2017-11-23] MEDS: SIMETHICONE SUSP 40 MG/0.6 ML BOTTLE GT SCH ×2 (08:17→21:22)
[2017-11-23] MEDS: ZINC OXIDE 30 GM TUBE TP SCH ×2 (08:18→21:22)
[2017-11-23] MEDS: PROSOURCE / PROSTAT (PYXIS) 30 ML UDC GT SCH ×2 (08:19→16:59)
--- NOTE | 2017-11-23 08:57 | NUR ---
RN NOTES PREP STARTED FOR EGD AND COLOSCOPY PER MD ORDER .
[2017-11-23] MEDS: IV D5W 1,000 ML IV PRN ×2 (10:50→23:15)
[2017-11-23 12:00] VITALS: BP 108/67
--- NOTE | 2017-11-23 12:00 | NUR ---
RN NOTES SEVERAL LOOSE WATERY BOWEL MOVEMENT NOTED, CONTINUE EGD PREP PER MD ORDER .
[2017-11-23 16:00] VITALS: BP 110/70
--- NOTE | 2017-11-23 18:00 | NUR ---
RN NOTES PT REMAINS NPO , VSS STABLE , TRACH SUCTIONING DONE, HASSAN DRINING TO GRAVITY , D5WAT 80CC/HR RUNNING VIA R UPPER ARM IV SITE , SR UP x3, CALL LIGHT WITHIN EASY REACH, BED LOCKED AND IN LOWEST POSITION , WILL ENDOSE TO DITCH TENDER NURSE FOR KATRIN
--- NOTE | 2017-11-23 19:57 | NUR ---
RECEIVED PT TRACHED ON VENT. PT NON VERBAL DOES NOT FOLLOW COMMANDS. NO RESP DISTRESS NOTED. PT TOLERATING VENT SETTINGS. SX'D FOR MOD AMT OF THICK YELLOW SECRETIONS. VENT ALARMS SET AND AUDIBLE. AMBU BAG AT BEDSIDE. TRACH SECURED, CUFF PRESSURE RN [facility]. VENT PLUGGED INTO RED OUTLET. WILL CONTINUE TO MONITOR. Addendum: 11/23/17 at 1999 by JEWEL PALACIOS RT Amended: Links added.
[2017-11-23 20:00] VITALS: BP 106/51
[2017-11-23] MEDS: MULTIVIT, IRON, MIN NO. 8, FA 1 TAB GT SCH (21:22)
[2017-11-23] MEDS: LANOLIN/MIN OIL/PETROLAT,WHT 3.5 GM TUBE EACHEYE SCH (21:23)
[2017-11-23] MEDS: SENNOSIDES 8.6 MG TABLET GT SCH (21:27)
[2017-11-23] MEDS: COLISTIMETHATE SODIUM 150 MG VIAL NEB SCH (21:40)
--- NOTE | 2017-11-23 22:57 | NUR ---
rn notes RECEIVED PATIENT AND REPORT FROM RONEY HASTINGS. WILL CONTINUE WITH CARE OF PATIENT
[2017-11-24] VITALS: BP 102/46
[2017-11-24 04:00] VITALS: BP 100/53
[2017-11-24] MEDS: PIPERACILLIN /TAZOBACTAM 3.375 G in IV D5W 50 ML IV SCH ×2 (05:08→11:37)
[2017-11-24] MEDS: BACLOFEN (10 MG) 10 MG TABLET GT SCH ×2 (05:08→17:50)
[2017-11-24 06:38] LABS: CALCIUM, SERUM 9.5 mg/dL (8.5-10.1); CREATININE 0.5 mg/dL (0.6-1.3); POTASSIUM 3.6 mmol/L (3.5-5.1)
--- NOTE | 2017-11-24 07:30 | NUR ---
SOFTWARE PRODUCT SPECIALIST INITIAL NOTES: RECEIVED PT IN BED, OBTUNDED. EYES OPEN TO TACTILE STIMULI. TRACH/VENT PT, TOLERATING VENT SETTINGS WELL. O2 SATURATION 98%. ON TELE MONITOR SINUS RHYTHM, HR 92. HASSAN CATH IN PLACE DRAINING YELLOW URINE. PT REMAINS NPO FOR SCHEDULED EGD AND COLONOSCOPY TODAY. IV TO PEACE #[id number]. D5W AT 80CC/HR ORDERED. BED IN LOW, LOCKED POSITION. CALL LIGHT WITHIN REACH. PLAN OF CARE DISCUSSED WITH PT, ALTHOUGH UNABLE TO DETERMINE UNDERSTANDING. WILL CONTINUE TO MONITOR PT.
[2017-11-24 08:00] VITALS: BP 105/51
[2017-11-24] MEDS: IPRATROPIUM NEB FS 0.5 MG/2.5 ML AMPUL.NEB IH SCH ×2 (08:03→20:26)
[2017-11-24] MEDS: POLYVINYL ALCOHOL 15 ML BOTTLE EACHEYE SCH ×4 (08:34→22:05)
[2017-11-24] MEDS: PANTOPRAZOLE 40 MG VIAL IV SCH (08:34)
[2017-11-24] MEDS: MIDODRINE HCL 2.5 MG TABLET GT SCH ×2 (08:34→22:07)
[2017-11-24] MEDS: SIMETHICONE SUSP 40 MG/0.6 ML BOTTLE GT SCH ×2 (08:35→22:37)
[2017-11-24] MEDS: Z GUARD REMEDY 2 OZ OINT TP SCH ×2 (08:35→22:38)
[2017-11-24] MEDS: HYDROGEN PEROXIDE 480 ML BOTTLE TP SCH ×2 (08:35→22:05)
[2017-11-24] MEDS: ZINC OXIDE 30 GM TUBE TP SCH ×2 (08:37→22:06)
[2017-11-24] MEDS: PROSOURCE / PROSTAT (PYXIS) 30 ML UDC GT SCH ×2 (08:51→16:36)
[2017-11-24] MEDS: FERROUS SULFATE (325 MG) 325 MG/TAB TABLET GT SCH ×2 (08:51→16:36)
[2017-11-24] MEDS: COLISTIMETHATE SODIUM 150 MG VIAL NEB SCH ×2 (08:54→22:09)
--- NOTE | 2017-11-24 11:31 | NUR ---
RN NOTES: SPOKE WITH OR REGARDING EGD. STILL UNSURE OF WHAT TIME EGD WILL BE DONE, OK TO GIVE SCHEDULED ZOSYN AT 12PM TODAY.
--- NOTE | 2017-11-24 11:50 | NUR ---
RN NOTES: PT SEEN BY DR YADAV WITH NEW ORDERS RECEIVED. CARRIED OUT. ALSO NOTIFIED MD THAT WE ARE STILL WAITING ON EGD AND COLONOSCOPY TO BE PERFORMED. PER MD, PLEASE ENSURE IT GETS DONE TODAY.
[2017-11-24 12:00] VITALS: BP 136/92
[2017-11-24 12:16] LABS: MAGNESIUM 1.7 mg/dL (1.8-2.4); PHOSPHORUS 3.2 mg/dL (2.5-4.9)
[2017-11-24 12:21] LABS: BASOPHILS % (AUTO) 0.6 % (0.0-2.0); EOSINOPHILS % (AUTO) 9.1 % (0.0-6.0); HEMATOCRIT 24 % (33-45); HEMOGLOBIN 7.4 g/dL (11.5-14.8); LYMPHOCYTES # (AUTO) 1.7 /CMM (0.8-4.8); LYMPHOCYTES % (AUTO) 36.6 % (20.0-44.0); MEAN CORPUSCULAR HEMOGLOBIN 26 PG (26.0-33.0); MEAN CORPUSCULAR HGB CONC 31 g/dl (31.0-36.0); MEAN CORPUSCULAR VOLUME 82 fL (82-100); MONOCYTES # (AUTO) 0.5 /CMM (0.1-1.30); MONOCYTES % (AUTO) 10.4 % (2.0-12.0); NEUTROPHILS % (AUTO) 43.3 % (43.0-81.0); PLATELET COUNT (AUTO) 313 /CMM (150-450); RDW COEFFICIENT OF VARIATION 19.4 (11.5-15.0); RED BLOOD CELL COUNT(AUTO) 2.87 MIL/uL (4.0-5.2); WHITE BLOOD COUNT (AUTO) 4.7 K/uL (4.3-11.0)
[2017-11-24] MEDS: LORAZEPAM INJ 2 MG/ML VIAL IV PRN (12:24)
--- NOTE | 2017-11-24 12:29 | NUR ---
RN NOTES: PRN ATIVAN INJ GIVEN VIA IV FOR SIGNS OF AGITATION. HR 140'S RESPIRATION RATE 30'S AND BP 136/92. WILL CONTINUE TO MONITOR.
[2017-11-24] MEDS: IV D5W 1,000 ML IV PRN (15:21)
[2017-11-24 16:00] VITALS: BP 103/59
--- NOTE | 2017-11-24 16:17 | NUR ---
EGD UPDATE: SPOKE WITH HOLLY FROM OR REGARDING STATUS OF EGD/COLONOSCOPY. STATED NO TIME IS SET YET, THEY ARE WAITING FOR THE DR. MD HUBBARD WILL BE DOING THE EGD WHEN HE IS AVAILABLE, HOPEFULLY TODAY. CONTINUE NPO STATUS UNTIL FURTHER ORDERS.
[2017-11-24] MEDS: LEVOFLOXACIN (500MG) 500 MG TABLET PO SCH (18:00)
[2017-11-24] MEDS: CEFEPIME 1 GM in IV NS 0.9% 50 ML IV SCH (18:14)
--- NOTE | 2017-11-24 18:30 | NUR ---
RN END NOTES: PT REMAINS IN BED, OPENS EYES TO TOUCH. EGD CHECKLIST DONE FOR PROCEDURE THIS EVENING. REMAINS NPO, IV FLUIDS D5W AT 80ML/HR ORDERED. BED IN LOW LOCKED POSITION, CALL LIGHT WITHIN REACH. VENT/TRACH ORDERED. NO APPARENT DISTRESS NOTED AT THIS TIME. IV ATB OF CEFEPIME RUNNING FOR PNA. LEVAQUIN NOT GIVEN VIA GT PER CHARGE NURSE ORDER DUE TO NPO AWAITING EGD. PT CLEANED AND REPOSITIONED, TREATMENT DONE ORDERED. O2 SATURATION 100%. WILL ENDORSE TO PM SHIFT FOR CONTINUITY OF CARE.
[2017-11-24 20:00] VITALS: BP_SYST 110; BP_DIAS 60; BP_DIAS 68
--- NOTE | 2017-11-24 20:00 | NUR ---
DR. SHEETS BY THE BED SIDE, PATIENT IS GETTING THE COLONOSCOPY/EGD AT THIS TIME VSS, AFEBRILE, NO DISTRESS NOTED
--- NOTE | 2017-11-24 22:00 | NUR ---
S/POST EGD/COLONOSCOPY. VSS, AFEBRILE VENT DEPENDENT PATIENT NO DISTRESS NOTED, SATURATION 100% TUBE FEEDING RESTARTED ORDERED, SCHEDUALED MEDICATIONS GIVEN CONTINUE TO MONITOR
[2017-11-24] MEDS: LANOLIN/MIN OIL/PETROLAT,WHT 3.5 GM TUBE EACHEYE SCH (22:06)
[2017-11-24] MEDS: GLUCERNA 1.2 1,000 ML BOTTLE NG PRN (22:08)
[2017-11-24] MEDS: SENNOSIDES 8.6 MG TABLET GT SCH (22:36)
[2017-11-24] MEDS: MULTIVIT, IRON, MIN NO. 8, FA 1 TAB GT SCH (22:38)
[2017-11-25] VITALS: BP 107/70
[2017-11-25 04:00] VITALS: BP 96/52
[2017-11-25] MEDS: BACLOFEN (10 MG) 10 MG TABLET GT SCH ×2 (05:27→17:58)
[2017-11-25] MEDS: CEFEPIME 1 GM in IV NS 0.9% 50 ML IV SCH ×2 (05:27→18:39)
[2017-11-25 06:26] LABS: BASOPHILS % (AUTO) 0.6 % (0.0-2.0); EOSINOPHILS % (AUTO) 7.9 % (0.0-6.0); HEMATOCRIT 24 % (33-45); HEMOGLOBIN 7.6 g/dL (11.5-14.8); LYMPHOCYTES # (AUTO) 1.9 /CMM (0.8-4.8); LYMPHOCYTES % (AUTO) 42.3 % (20.0-44.0); MEAN CORPUSCULAR HEMOGLOBIN 26 PG (26.0-33.0); MEAN CORPUSCULAR HGB CONC 32 g/dl (31.0-36.0); MEAN CORPUSCULAR VOLUME 81 fL (82-100); MONOCYTES # (AUTO) 0.5 /CMM (0.1-1.30); MONOCYTES % (AUTO) 10.5 % (2.0-12.0); NEUTROPHILS # (AUTO) 1.7 /CMM (1.8-8.9); NEUTROPHILS % (AUTO) 38.7 % (43.0-81.0); PLATELET COUNT (AUTO) 292 /CMM (150-450); RDW COEFFICIENT OF VARIATION 19.5 (11.5-15.0); RED BLOOD CELL COUNT(AUTO) 2.95 MIL/uL (4.0-5.2); WHITE BLOOD COUNT (AUTO) 4.5 K/uL (4.3-11.0)
[2017-11-25 06:39] LABS: CALCIUM, SERUM 9.4 mg/dL (8.5-10.1); CREATININE 0.5 mg/dL (0.6-1.3); MAGNESIUM 1.7 mg/dL (1.8-2.4); PHOSPHORUS 3.2 mg/dL (2.5-4.9); POTASSIUM 3.6 mmol/L (3.5-5.1)
--- NOTE | 2017-11-25 07:15 | NUR ---
KITCHEN HELPER OPENING NOTES: RECEIVED PT IN BED, AWAKE. RESPONSE TO TACTILE STIMULI. TRACH/VENT DEPENDANT, TOLERATING VENT SETTINGS WELL. O2 SATURATION 100%. ON TELE MONITOR SINUS RHYTHM, HR 94. HASSAN CATH IN PLACE DRAINING YELLOW URINE. IV TO PEACE #[id number]. D5W AT 80CC/HR ORDERED. BED IN LOW, LOCKED POSITION. CALL LIGHT WITHIN REACH. ON GTF 260ML/HR WILL CONTINUE TO MONITOR . Addendum: 11/25/17 at 1945 by CROW RICHARD RN GTF AT 60ML /HR
[2017-11-25] MEDS: IPRATROPIUM NEB FS 0.5 MG/2.5 ML AMPUL.NEB IH SCH ×2 (07:45→20:15)
[2017-11-25 08:00] VITALS: BP 98/64
[2017-11-25] MEDS: COLISTIMETHATE SODIUM 150 MG VIAL NEB SCH ×2 (08:57→09:48)
[2017-11-25] MEDS: PANTOPRAZOLE 40 MG VIAL IV SCH (08:57)
[2017-11-25] MEDS: FERROUS SULFATE (325 MG) 325 MG/TAB TABLET GT SCH ×2 (08:59→17:59)
[2017-11-25] MEDS: PROSOURCE / PROSTAT (PYXIS) 30 ML UDC GT SCH ×2 (08:59→17:59)
[2017-11-25] MEDS: MIDODRINE HCL 2.5 MG TABLET GT SCH (08:59)
[2017-11-25] MEDS: POLYVINYL ALCOHOL 15 ML BOTTLE EACHEYE SCH ×3 (09:03→18:03)
[2017-11-25] MEDS: HYDROGEN PEROXIDE 480 ML BOTTLE TP SCH (09:03)
[2017-11-25] MEDS: SIMETHICONE SUSP 40 MG/0.6 ML BOTTLE GT SCH (09:03)
[2017-11-25] MEDS: Z GUARD REMEDY 2 OZ OINT TP SCH (09:04)
[2017-11-25] MEDS: IV D5W 1,000 ML IV PRN (10:58)
[2017-11-25 12:00] VITALS: BP 104/45
[2017-11-25] MEDS: Magnesium 1GM/D5W 100ML PREMIX 100 ML IV SCH ×2 (12:55→14:09)
[2017-11-25 16:00] VITALS: BP 103/43
[2017-11-25] MEDS: LEVOFLOXACIN (500MG) 500 MG TABLET PO SCH (17:59)
--- NOTE | 2017-11-25 18:00 | NUR ---
BRUSH TRIMMING MACHINE SETTER NOTES GOT DISCAHRGE ORDER TO SUBACUTE.ATTENDING RADIOLOGIST SHARITA AWARE.SHE SAID WILL FOLLOW UP WITH HER ON SUBACUTE.OK TO BE DISCHARGED.
[2017-11-25] MEDS: GLUCERNA 1.2 1,000 ML BOTTLE NG PRN (18:02)
[2017-11-25] MEDS: ZINC OXIDE 30 GM TUBE TP SCH (18:03)
--- NOTE | 2017-11-25 19:15 | NUR ---
MASTER DEPUTY SHERIFF COURT SECURITY SHIFT END NOTES: PT IN BED, AWAKE. DISCHARGE TO SUBACUTE AT 1999.RESPONSE TO TACTILE STIMULI. TRACH/VENT DEPENDANT, TOLERATING VENT SETTINGS WELL. O2 SATURATION 100%. ON TELE MONITOR SINUS RHYTHM, HR 96. HASSAN CATH IN PLACE DRAINING YELLOW URINE. IV TO PEACE #[id number]. D5W AT 80CC/HR ORDERED. BED IN LOW, LOCKED POSITION. CALL LIGHT WITHIN REACH. ON GTF 60ML/HR .ENDORSED TO PM NURSE FOR KATRIN AND ABOUT DISCHARGE.ALL DISCHARGE PAPERWORK DONE.
--- NOTE | 2017-11-25 20:00 | NUR ---
ORTHODONTIC TECHNICIAN SHIFT END NOTES: RECEIVE PATIENT SLEEPING COMFORTABLY IN BED, FOR DISCHARGE TO SUBACUTE NOW IN STABLE CONDITION. NO DISTRESS NOTED. BREATHING EVEN AND UNLABORED. VENT SETTING WELL TOLERATED. ENDORSED TO RONEY RUANO. PATIENT RESPONSIVE TO TACTILE STIMULI. O2 SATURATION 100%. ON TELE MONITOR SINUS RHYTHM, HR 80. HASSAN CATH IN PLACE DRAINING YELLOW URINE. IV TO PEACE #[id number]. D5W AT 80CC/HR ORDERED. BED IN LOW, LOCKED POSITION. CALL LIGHT WITHIN REACH. ON GTF 80ML/HR . KEPT CLEAN AND DRY
[2017-11-26] MEDS ORDERED: HYDR1SOL TD (08:04)
[2017-11-26] MEDS ORDERED: PANT40SU2 GT (08:04)
[2017-11-26] MEDS ORDERED: LEVO500T90 PO (08:04)
[2017-11-26] MEDS ORDERED: ALLA266C2 TP (08:04)
[2017-11-26] MEDS ORDERED: CEFE1VIA11 IV (08:04)
[2017-11-26] MEDS ORDERED: COLI150V NEB (08:04)
== END 2017-11-25 20:37 | DRG 720 ==
LOC: ER 16:49 → TELE-TD 19:49 → TELE1 11-19 09:35
PROVIDERS: ADMIT Internal Medicine; ATTEND Internal Medicine Nephrology
DX: A41.9 Sepsis, unspecified organism (principal); Z99.11 Dependence on respirator [ventilator] status; G93.40 Encephalopathy, unspecified; R40.3 Persistent vegetative state; J18.9 Pneumonia, unspecified organism; J96.10 Chronic respiratory failure, unspecified whether with hypoxia or hypercapnia; Z93.0 Tracheostomy status; I25.10 Atherosclerotic heart disease of native coronary artery without angina pectoris; G40.909 Epilepsy, unspecified, not intractable, without status epilepticus; N39.0 Urinary tract infection, site not specified; B96.4 Proteus (mirabilis) (morganii) as the cause of diseases classified elsewhere; Z93.1 Gastrostomy status; R13.10 Dysphagia, unspecified; D69.6 Thrombocytopenia, unspecified; F09 Unspecified mental disorder due to known physiological condition; Z79.899 Other long term (current) drug therapy; K80.20 Calculus of gallbladder without cholecystitis without obstruction; E87.0 Hyperosmolality and hypernatremia; E86.0 Dehydration; K92.2 Gastrointestinal hemorrhage, unspecified; B96.89 Other specified bacterial agents as the cause of diseases classified elsewhere; K64.8 Other hemorrhoids
CPT/HCPCS: 31720; 36415; 71045-TC; 80048-TC; 80076-TC; 80202-TC; 81000-TC; 82272-TC; 82728-TC; 82962-TC; 83540-TC; 83605-TC; 83735-TC; 83880; 84100-TC; 84443-TC; 84484-TC; 85025-TC; 85730-TC; 87040-TC; 87045-TC; 87070-TC; 87081-TC; 87086-TC; 87186-TC; 88305-TC; 88313-TC; 88342; 89055; 94002-TC; 94003-TC; 94760-TC; 94762-TC; 99082-TC; A4216; A4217; A4606; A6403; A7526; C9113; J0692; J0770; J2060; J2185; J2543; J3370; J3475; J7030; J7040; J7050; J7060; J7070; Z7610

== ENCOUNTER 2017-11-25 20:26 | Inpatient (IN) | END 2018-05-30 23:59 | disposition still patient (30) | DRG 130 | DX: J96.11 Chronic respiratory failure with hypoxia (principal); G93.40 Encephalopathy, unspecified; I50.33 Acute on chronic diastolic (congestive) heart failure; R40.3 Persistent vegetative state; D89.0 Polyclonal hypergammaglobulinemia; R13.10 Dysphagia, unspecified; Z93.1 Gastrostomy status; I47.1 Supraventricular tachycardia; B35.1 Tinea unguium; Z99.11 Dependence on respirator [ventilator] status; Z93.0 Tracheostomy status; D64.9 Anemia, unspecified; F09 Unspecified mental disorder due to known physiological condition; G40.909 Epilepsy, unspecified, not intractable, without status epilepticus; I25.10 Atherosclerotic heart disease of native coronary artery without angina pectoris; Z86.718 Personal history of other venous thrombosis and embolism ==

== ENCOUNTER 2018-05-31 | Inpatient (IN) | payer OTHER ==
[~2018-05-31] VITALS: Ht 160 cm; Wt 96.2 kg
[~2018-05-31] MED LIST changes: +ALLA266C2 TP; +AMIN30LI4 GT; +CEFE1VIA11 IV; +COLI150V12 NEB; -DEXT15DR EACHEYE; -FAMO20TA8 GT; +FERR325T23 GT; -FURO40SO2 GT; +HYDR1SOL TD; -LACT10SO GT; +LANO3.5O3 EACHEYE; +LEVO500T90 PO; +LORA0.5T GT; +MULT-447 GT; -MULT1TAB11 GT; +NUT.237L30 GT; -NUTR100037 GT; -OMEP40CA37 GT; +PANT40SU2 GT; +POLY15DR40 EACHEYE; -POTA20TA83 GT; -SENN-167 GT; +SENN-168 GT; +SIME40DR7 GT; +ZINC57OI4 TP
[2018-06-01] MEDS: MIDODRINE HCL (5MG) 5 MG TABLET GT SCH ×2 (11:28→20:59)
[2018-06-01] MEDS ORDERED: ONDANSETRON 4 MG TAB.RAPDIS GT PRN (11:30)
[2018-06-01] MEDS: FERROUS SULFATE - FOR SA ONLY 330 MG/7.5 ML UDC GT SCH ×2 (11:30→17:20)
[2018-06-01] MEDS ORDERED: BISACODYL SUPP (10 MG) 10 MG/SUPP.RECT SUPP.RECT RC PRN (11:30)
[2018-06-01] MEDS ORDERED: HYDROGEN PEROXIDE 480 ML BOTTLE TP PRN (11:30)
[2018-06-01] MEDS: SIMETHICONE SUSP 40 MG/0.6 ML BOTTLE GT SCH ×2 (11:31→20:58)
[2018-06-01] MEDS: BACLOFEN (10 MG) 10 MG TABLET GT SCH ×2 (11:32→17:20)
[2018-06-01] MEDS: Z GUARD REMEDY 4 OZ OINT TP SCH ×2 (11:33→20:59)
[2018-06-01] MEDS: ACIDOPHILUS/BULGARICUS 1 EACH TAB.CHEW GT SCH ×2 (11:34→17:20)
[2018-06-01] MEDS: PROSTAT (PYXIS) 30 ML UDC GT SCH ×2 (11:39→20:59)
[2018-06-01 11:42] VITALS: BP 100/51
[2018-06-01] MEDS ORDERED: ACETAMINOPHEN 650 MG/20 ML UDC- SA PATIENTS-FEVER ONLY GT PRN (12:00)
[2018-06-01] MEDS ORDERED: IPRATROPIUM NEB FS 0.5 MG/2.5 ML AMPUL.NEB NEB PRN (12:00)
[2018-06-01] MEDS ORDERED: SENNOSIDES/DOCUSATE SODIUM 1 TAB TABLET PO PRN (12:00)
[2018-06-01] MEDS: IPRATROPIUM NEB FS 0.5 MG/2.5 ML AMPUL.NEB NEB SCH ×2 (12:59→20:01)
[2018-06-01] MEDS: POLYVINYL ALCOHOL 15 ML BOTTLE OP SCH ×3 (13:00→20:59)
[2018-06-01 19:57] VITALS: BP 111/77
[2018-06-01 20:00] VITALS: BP 111/77
[2018-06-01] MEDS: HYDROGEN PEROXIDE 480 ML BOTTLE TP SCH (20:59)
[2018-06-01] MEDS: NEOMY SULF/BACITRAC ZN/POLY 15 GM TUBE TP SCH (20:59)
[2018-06-01] MEDS: MULTIVIT W/MINERALS 1 TAB TABLET GT SCH (20:59)
[2018-06-01] MEDS: LANOLIN/MIN OIL/PETROLAT,WHT 3.5 GM TUBE EACHEYE SCH (21:00)
[2018-06-02] MEDS: IPRATROPIUM NEB FS 0.5 MG/2.5 ML AMPUL.NEB NEB SCH ×4 (02:08→20:05)
[2018-06-02] MEDS: BACLOFEN (10 MG) 10 MG TABLET GT SCH ×2 (05:14→17:27)
[2018-06-02] MEDS: OMEPRAZOLE 20 MG CAPSULE.DR GT SCH (05:14)
[2018-06-02 07:39] VITALS: BP 78/33
[2018-06-02] MEDS: SIMETHICONE SUSP 40 MG/0.6 ML BOTTLE GT SCH ×2 (09:24→21:38)
[2018-06-02] MEDS: ACIDOPHILUS/BULGARICUS 1 EACH TAB.CHEW GT SCH ×2 (09:24→16:37)
[2018-06-02] MEDS: FERROUS SULFATE - FOR SA ONLY 330 MG/7.5 ML UDC GT SCH ×2 (09:24→16:37)
[2018-06-02] MEDS: PROSTAT (PYXIS) 30 ML UDC GT SCH ×2 (09:26→21:38)
[2018-06-02] MEDS: MIDODRINE HCL (5MG) 5 MG TABLET GT SCH ×2 (09:26→21:38)
[2018-06-02] MEDS: POLYVINYL ALCOHOL 15 ML BOTTLE OP SCH ×4 (09:27→21:38)
[2018-06-02] MEDS: HYDROGEN PEROXIDE 480 ML BOTTLE TP SCH ×2 (09:27→21:38)
[2018-06-02] MEDS: Z GUARD REMEDY 4 OZ OINT TP SCH ×2 (09:28→21:38)
[2018-06-02] MEDS: NEOMY SULF/BACITRAC ZN/POLY 15 GM TUBE TP SCH ×2 (09:28→21:38)
[2018-06-02] MEDS: TWOCAL HN 1,000 ML LIQUID GT PRN (18:45)
[2018-06-02 20:05] VITALS: BP 90/58
[2018-06-02] MEDS: MULTIVIT W/MINERALS 1 TAB TABLET GT SCH (21:38)
[2018-06-02] MEDS: LANOLIN/MIN OIL/PETROLAT,WHT 3.5 GM TUBE EACHEYE SCH (21:38)
[2018-06-03] MEDS: IPRATROPIUM NEB FS 0.5 MG/2.5 ML AMPUL.NEB NEB SCH ×4 (01:30→20:13)
[2018-06-03] MEDS: OMEPRAZOLE 20 MG CAPSULE.DR GT SCH (06:42)
[2018-06-03] MEDS: BACLOFEN (10 MG) 10 MG TABLET GT SCH ×2 (06:42→17:14)
[2018-06-03 07:39] VITALS: BP 135/42
[2018-06-03] MEDS: MIDODRINE HCL (5MG) 5 MG TABLET GT SCH ×2 (09:38→20:39)
[2018-06-03] MEDS: ACIDOPHILUS/BULGARICUS 1 EACH TAB.CHEW GT SCH ×2 (09:38→16:10)
[2018-06-03] MEDS: SIMETHICONE SUSP 40 MG/0.6 ML BOTTLE GT SCH ×2 (09:38→20:39)
[2018-06-03] MEDS: FERROUS SULFATE - FOR SA ONLY 330 MG/7.5 ML UDC GT SCH ×2 (09:38→16:10)
[2018-06-03] MEDS: HYDROGEN PEROXIDE 480 ML BOTTLE TP SCH ×2 (09:39→20:40)
[2018-06-03] MEDS: Z GUARD REMEDY 4 OZ OINT TP SCH ×2 (09:39→20:40)
[2018-06-03] MEDS: PROSTAT (PYXIS) 30 ML UDC GT SCH ×2 (09:39→20:40)
[2018-06-03] MEDS: NEOMY SULF/BACITRAC ZN/POLY 15 GM TUBE TP SCH ×2 (09:39→20:40)
[2018-06-03] MEDS: POLYVINYL ALCOHOL 15 ML BOTTLE OP SCH ×4 (09:39→20:40)
[2018-06-03] MEDS: TWOCAL HN 1,000 ML LIQUID GT PRN (16:10)
[2018-06-03 20:20] VITALS: BP 95/62
[2018-06-03] MEDS: MULTIVIT W/MINERALS 1 TAB TABLET GT SCH (20:40)
[2018-06-03] MEDS: LANOLIN/MIN OIL/PETROLAT,WHT 3.5 GM TUBE EACHEYE SCH (21:49)
[2018-06-04] MEDS: IPRATROPIUM NEB FS 0.5 MG/2.5 ML AMPUL.NEB NEB SCH ×4 (02:07→20:09)
[2018-06-04] MEDS: OMEPRAZOLE 20 MG CAPSULE.DR GT SCH (05:45)
[2018-06-04] MEDS: BACLOFEN (10 MG) 10 MG TABLET GT SCH ×2 (05:45→17:06)
[2018-06-04] MEDS: ACIDOPHILUS/BULGARICUS 1 EACH TAB.CHEW GT SCH ×2 (09:36→17:06)
[2018-06-04] MEDS: FERROUS SULFATE - FOR SA ONLY 330 MG/7.5 ML UDC GT SCH ×2 (09:36→17:06)
[2018-06-04] MEDS: SIMETHICONE SUSP 40 MG/0.6 ML BOTTLE GT SCH ×2 (09:36→21:45)
[2018-06-04 09:37] VITALS: BP 95/57
[2018-06-04] MEDS: Z GUARD REMEDY 4 OZ OINT TP SCH ×2 (09:37→21:46)
[2018-06-04] MEDS: POLYVINYL ALCOHOL 15 ML BOTTLE OP SCH ×4 (09:37→21:46)
[2018-06-04] MEDS: PROSTAT (PYXIS) 30 ML UDC GT SCH ×2 (09:37→21:46)
[2018-06-04] MEDS: MIDODRINE HCL (5MG) 5 MG TABLET GT SCH ×2 (09:37→21:46)
[2018-06-04] MEDS: NEOMY SULF/BACITRAC ZN/POLY 15 GM TUBE TP SCH ×2 (09:37→21:46)
[2018-06-04] MEDS: HYDROGEN PEROXIDE 480 ML BOTTLE TP SCH ×2 (09:37→21:46)
[2018-06-04] MEDS: TWOCAL HN 1,000 ML LIQUID GT PRN (17:06)
[2018-06-04 20:30] VITALS: BP 98/64
[2018-06-04] MEDS: LANOLIN/MIN OIL/PETROLAT,WHT 3.5 GM TUBE EACHEYE SCH (21:46)
[2018-06-04] MEDS: MULTIVIT W/MINERALS 1 TAB TABLET GT SCH (21:46)
[2018-06-05] MEDS: IPRATROPIUM NEB FS 0.5 MG/2.5 ML AMPUL.NEB NEB SCH ×4 (01:28→20:00)
[2018-06-05] MEDS: OMEPRAZOLE 20 MG CAPSULE.DR GT SCH (05:45)
[2018-06-05] MEDS: BACLOFEN (10 MG) 10 MG TABLET GT SCH ×2 (05:45→18:31)
[2018-06-05 07:51] VITALS: BP 93/47
[2018-06-05] MEDS: Z GUARD REMEDY 4 OZ OINT TP SCH ×2 (09:00→21:06)
[2018-06-05] MEDS: NEOMY SULF/BACITRAC ZN/POLY 15 GM TUBE TP SCH ×2 (09:00→21:06)
[2018-06-05] MEDS: HYDROGEN PEROXIDE 480 ML BOTTLE TP SCH ×2 (09:00→21:06)
[2018-06-05] MEDS: ACIDOPHILUS/BULGARICUS 1 EACH TAB.CHEW GT SCH ×2 (09:43→17:00)
[2018-06-05] MEDS: SIMETHICONE SUSP 40 MG/0.6 ML BOTTLE GT SCH ×2 (09:43→21:05)
[2018-06-05] MEDS: FERROUS SULFATE - FOR SA ONLY 330 MG/7.5 ML UDC GT SCH ×2 (09:43→17:00)
[2018-06-05] MEDS: POLYVINYL ALCOHOL 15 ML BOTTLE OP SCH ×4 (09:44→21:06)
[2018-06-05] MEDS: MIDODRINE HCL (5MG) 5 MG TABLET GT SCH ×2 (09:44→21:00)
[2018-06-05] MEDS: PROSTAT (PYXIS) 30 ML UDC GT SCH ×2 (09:44→21:06)
[2018-06-05 20:33] VITALS: BP 140/98
[2018-06-05] MEDS: MULTIVIT W/MINERALS 1 TAB TABLET GT SCH (21:06)
[2018-06-05] MEDS: LANOLIN/MIN OIL/PETROLAT,WHT 3.5 GM TUBE EACHEYE SCH (21:07)
[2018-06-05] MEDS: TWOCAL HN 1,000 ML LIQUID GT PRN (22:05)
[2018-06-06] MEDS: IPRATROPIUM NEB FS 0.5 MG/2.5 ML AMPUL.NEB NEB SCH ×4 (02:12→19:58)
[2018-06-06] MEDS: OMEPRAZOLE 20 MG CAPSULE.DR GT SCH (06:03)
[2018-06-06] MEDS: BACLOFEN (10 MG) 10 MG TABLET GT SCH ×2 (06:03→17:53)
[2018-06-06 08:10] VITALS: BP 120/68
[2018-06-06] MEDS: SIMETHICONE SUSP 40 MG/0.6 ML BOTTLE GT SCH ×2 (08:50→21:00)
[2018-06-06] MEDS: ACIDOPHILUS/BULGARICUS 1 EACH TAB.CHEW GT SCH ×2 (08:50→17:53)
[2018-06-06] MEDS: PROSTAT (PYXIS) 30 ML UDC GT SCH ×2 (08:51→21:02)
[2018-06-06] MEDS: POLYVINYL ALCOHOL 15 ML BOTTLE OP SCH ×4 (08:51→21:02)
[2018-06-06] MEDS: MIDODRINE HCL (5MG) 5 MG TABLET GT SCH ×2 (08:51→21:01)
[2018-06-06] MEDS: FERROUS SULFATE - FOR SA ONLY 330 MG/7.5 ML UDC GT SCH ×2 (08:56→17:53)
[2018-06-06] MEDS: Z GUARD REMEDY 4 OZ OINT TP SCH ×2 (09:00→21:02)
[2018-06-06] MEDS: HYDROGEN PEROXIDE 480 ML BOTTLE TP SCH ×2 (09:00→21:02)
[2018-06-06] MEDS: NEOMY SULF/BACITRAC ZN/POLY 15 GM TUBE TP SCH ×2 (09:00→21:02)
[2018-06-06 20:31] VITALS: BP 115/58
[2018-06-06] MEDS: MULTIVIT W/MINERALS 1 TAB TABLET GT SCH (21:02)
[2018-06-06] MEDS: LANOLIN/MIN OIL/PETROLAT,WHT 3.5 GM TUBE EACHEYE SCH (21:03)
[2018-06-07] MEDS: TWOCAL HN 1,000 ML LIQUID GT PRN (00:51)
[2018-06-07] MEDS: IPRATROPIUM NEB FS 0.5 MG/2.5 ML AMPUL.NEB NEB SCH ×4 (00:52→19:30)
[2018-06-07] MEDS: BACLOFEN (10 MG) 10 MG TABLET GT SCH (05:51)
[2018-06-07] MEDS: OMEPRAZOLE 20 MG CAPSULE.DR GT SCH (05:51)
[2018-06-07 08:16] VITALS: BP 120/64
[2018-06-07] MEDS: Z GUARD REMEDY 4 OZ OINT TP SCH ×2 (09:00→22:00)
[2018-06-07] MEDS: HYDROGEN PEROXIDE 480 ML BOTTLE TP SCH ×2 (09:00→21:59)
[2018-06-07] MEDS: NEOMY SULF/BACITRAC ZN/POLY 15 GM TUBE TP SCH ×2 (09:00→21:59)
[2018-06-07] MEDS: FERROUS SULFATE - FOR SA ONLY 330 MG/7.5 ML UDC GT SCH (09:23)
[2018-06-07] MEDS: SIMETHICONE SUSP 40 MG/0.6 ML BOTTLE GT SCH ×2 (09:24→21:57)
[2018-06-07] MEDS: ACIDOPHILUS/BULGARICUS 1 EACH TAB.CHEW GT SCH (09:24)
[2018-06-07] MEDS: PROSTAT (PYXIS) 30 ML UDC GT SCH ×2 (09:24→21:58)
[2018-06-07] MEDS: POLYVINYL ALCOHOL 15 ML BOTTLE OP SCH ×3 (09:24→21:00)
[2018-06-07] MEDS: MIDODRINE HCL (5MG) 5 MG TABLET GT SCH ×2 (09:24→21:58)
[2018-06-07] MEDS: LORAZEPAM 0.5 MG TABLET GT PRN (11:24)
[2018-06-07 20:20] VITALS: BP 113/64
[2018-06-07] MEDS: MULTIVIT W/MINERALS 1 TAB TABLET GT SCH (21:59)
[2018-06-07] MEDS: LANOLIN/MIN OIL/PETROLAT,WHT 3.5 GM TUBE EACHEYE SCH (22:00)
[2018-06-08] MEDS: LORAZEPAM 0.5 MG TABLET GT PRN ×3 (00:44→15:48)
[2018-06-08] MEDS: IPRATROPIUM NEB FS 0.5 MG/2.5 ML AMPUL.NEB NEB SCH ×4 (01:30→19:55)
[2018-06-08] MEDS: OMEPRAZOLE 20 MG CAPSULE.DR GT SCH (06:14)
[2018-06-08] MEDS: BACLOFEN (10 MG) 10 MG TABLET GT SCH ×2 (06:14→17:03)
[2018-06-08 08:09] VITALS: BP 117/92
[2018-06-08] MEDS: FERROUS SULFATE - FOR SA ONLY 330 MG/7.5 ML UDC GT SCH ×2 (08:53→16:30)
[2018-06-08] MEDS: ACIDOPHILUS/BULGARICUS 1 EACH TAB.CHEW GT SCH ×2 (08:53→16:30)
[2018-06-08] MEDS: SIMETHICONE SUSP 40 MG/0.6 ML BOTTLE GT SCH ×2 (08:54→21:08)
[2018-06-08] MEDS: MIDODRINE HCL (5MG) 5 MG TABLET GT SCH ×2 (08:55→21:08)
[2018-06-08] MEDS: Z GUARD REMEDY 4 OZ OINT TP SCH ×2 (08:55→21:11)
[2018-06-08] MEDS: PROSTAT (PYXIS) 30 ML UDC GT SCH ×2 (08:55→21:08)
[2018-06-08] MEDS: POLYVINYL ALCOHOL 15 ML BOTTLE OP SCH ×4 (08:55→21:08)
[2018-06-08] MEDS: NEOMY SULF/BACITRAC ZN/POLY 15 GM TUBE TP SCH ×2 (08:55→21:11)
[2018-06-08] MEDS: HYDROGEN PEROXIDE 480 ML BOTTLE TP SCH ×2 (08:55→21:08)
[2018-06-08] MEDS ORDERED: CARVEDILOL 3.125 MG TABLET GT SCH (12:30)
[2018-06-08] MEDS ORDERED: CARVEDILOL 3.125 MG TABLET GT ONE (13:30)
[2018-06-08 15:35] VITALS: BP 156/86
[2018-06-08 17:10] LABS: CALCIUM, SERUM 10.5 mg/dL (8.5-10.1); CREATININE 0.9 mg/dL (0.6-1.3); POTASSIUM 4.4 mmol/L (3.5-5.1)
[2018-06-08 17:29] LABS: BASOPHILS % (AUTO) 0.5 % (0.0-2.0); EOSINOPHILS % (AUTO) 0.3 % (0.0-6.0); HEMATOCRIT 34 % (33-45); HEMOGLOBIN 10.4 g/dL (11.5-14.8); LYMPHOCYTES # (AUTO) 3.2 /CMM (0.8-4.8); LYMPHOCYTES % (AUTO) 35.3 % (20.0-44.0); MEAN CORPUSCULAR HGB CONC 31 g/dl (31.0-36.0); MEAN CORPUSCULAR VOLUME 84 fL (82-100); MONOCYTES % (AUTO) 11.6 % (2.0-12.0); NEUTROPHILS # (AUTO) 4.7 /CMM (1.8-8.9); NEUTROPHILS % (AUTO) 52.3 % (43.0-81.0); PLATELET COUNT (AUTO) 162 /CMM (150-450); RED BLOOD CELL COUNT(AUTO) 4.06 MIL/uL (4.0-5.2)
[2018-06-08 18:03] LABS: APPEARANCE,URINE CLEAR (CLEAR); BILIRUBIN,URINE NEGATIVE (NEGATIVE); BLOOD, URINE TRACE Ery/uL (NEGATIVE); COLOR,URINE YELLOW (YELLOW); KETONES,URINE NEGATIVE (NEGATIVE); LEUKOCYTE ESTERASE ,URINE TRACE (NEGATIVE); NITRITE, URINE NEGATIVE (NEGATIVE); PROTEIN,URINE 1+ mg/dl (NEGATIVE); UGLUCOSE NEGATIVE (NEGATIVE); UROBILINOGEN,URINE 0.2 EU/dL (0.2)
[2018-06-08 18:22] LABS: BACTERIA,URINE Rare /HPF (None Seen); RBC,URINE 0-2 /HPF (0-2); SQUAMOUS EPITHELIAL CELL,UR Moderate /HPF (None Seen)
[2018-06-08 19:55] VITALS: BP 95/46
[2018-06-08] MEDS ORDERED: PIPERACILLIN /TAZOBACTAM 3.375 G in IV D5W 50 ML IV SCH (21:00)
[2018-06-08] MEDS ORDERED: VANCOMYCIN 1 GM in IV D5W 250ml IV ONE (21:00)
[2018-06-08] MEDS: MULTIVIT W/MINERALS 1 TAB TABLET GT SCH (21:08)
[2018-06-08] MEDS: LANOLIN/MIN OIL/PETROLAT,WHT 3.5 GM TUBE EACHEYE SCH (21:12)
[2018-06-08] MEDS: LORAZEPAM INJ 2 MG/ML VIAL IVP PRN (21:52)
[2018-06-08] MEDS: CARVEDILOL 3.125 MG TABLET GT SCH (22:00)
[2018-06-09] MEDS: IPRATROPIUM NEB FS 0.5 MG/2.5 ML AMPUL.NEB NEB SCH ×4 (02:09→20:16)
[2018-06-09] MEDS: PIPERACILLIN /TAZOBACTAM 3.375 G in IV D5W 50 ML IV SCH ×3 (05:17→20:39)
[2018-06-09] MEDS: OMEPRAZOLE 20 MG CAPSULE.DR GT SCH (05:50)
[2018-06-09] MEDS: BACLOFEN (10 MG) 10 MG TABLET GT SCH ×2 (05:50→18:04)
[2018-06-09 07:44] LABS: BASOPHILS % (AUTO) 0.5 % (0.0-2.0); EOSINOPHILS % (AUTO) 1.3 % (0.0-6.0); HEMATOCRIT 31 % (33-45); HEMOGLOBIN 9.6 g/dL (11.5-14.8); LYMPHOCYTES # (AUTO) 2.8 /CMM (0.8-4.8); LYMPHOCYTES % (AUTO) 32.2 % (20.0-44.0); MEAN CORPUSCULAR HGB CONC 31 g/dl (31.0-36.0); MEAN CORPUSCULAR VOLUME 84 fL (82-100); MONOCYTES # (AUTO) 1.1 /CMM (0.1-1.30); MONOCYTES % (AUTO) 12.3 % (2.0-12.0); NEUTROPHILS # (AUTO) 4.7 /CMM (1.8-8.9); NEUTROPHILS % (AUTO) 53.7 % (43.0-81.0); PLATELET COUNT (AUTO) 135 /CMM (150-450); RED BLOOD CELL COUNT(AUTO) 3.72 MIL/uL (4.0-5.2); WHITE BLOOD COUNT (AUTO) 8.8 K/uL (4.3-11.0)
[2018-06-09 08:03] VITALS: BP 103/43
[2018-06-09] MEDS: NEOMY SULF/BACITRAC ZN/POLY 15 GM TUBE TP SCH ×2 (09:00→21:29)
[2018-06-09] MEDS: Z GUARD REMEDY 4 OZ OINT TP SCH ×2 (09:00→21:29)
[2018-06-09] MEDS: VANCOMYCIN 1 GM in IV D5W 250ml IV SCH ×2 (09:00→20:39)
[2018-06-09] MEDS: HYDROGEN PEROXIDE 480 ML BOTTLE TP SCH ×2 (09:00→21:29)
[2018-06-09] MEDS: ACIDOPHILUS/BULGARICUS 1 EACH TAB.CHEW GT SCH ×2 (09:45→17:00)
[2018-06-09] MEDS: SIMETHICONE SUSP 40 MG/0.6 ML BOTTLE GT SCH ×2 (09:45→21:28)
[2018-06-09] MEDS: POLYVINYL ALCOHOL 15 ML BOTTLE OP SCH ×4 (09:45→21:29)
[2018-06-09] MEDS: FERROUS SULFATE - FOR SA ONLY 330 MG/7.5 ML UDC GT SCH ×2 (09:45→17:00)
[2018-06-09] MEDS: PROSTAT (PYXIS) 30 ML UDC GT SCH ×2 (09:45→21:28)
[2018-06-09] MEDS: MIDODRINE HCL (5MG) 5 MG TABLET GT SCH ×2 (09:45→21:00)
[2018-06-09] MEDS: CARVEDILOL 3.125 MG TABLET GT SCH ×2 (09:45→21:27)
[2018-06-09] MEDS: TWOCAL HN 1,000 ML LIQUID GT PRN (18:06)
[2018-06-09 20:26] VITALS: BP 124/76
[2018-06-09] MEDS: LANOLIN/MIN OIL/PETROLAT,WHT 3.5 GM TUBE EACHEYE SCH (21:29)
[2018-06-09] MEDS: MULTIVIT W/MINERALS 1 TAB TABLET GT SCH (21:29)
[2018-06-10] MEDS: IPRATROPIUM NEB FS 0.5 MG/2.5 ML AMPUL.NEB NEB SCH ×4 (02:13→20:11)
[2018-06-10] MEDS: PIPERACILLIN /TAZOBACTAM 3.375 G in IV D5W 50 ML IV SCH ×3 (05:09→21:00)
[2018-06-10] MEDS: OMEPRAZOLE 20 MG CAPSULE.DR GT SCH (06:23)
[2018-06-10] MEDS: BACLOFEN (10 MG) 10 MG TABLET GT SCH ×2 (06:23→17:25)
[2018-06-10 07:39] VITALS: BP 93/51
[2018-06-10] MEDS: Z GUARD REMEDY 4 OZ OINT TP SCH ×2 (09:00→21:55)
[2018-06-10] MEDS: HYDROGEN PEROXIDE 480 ML BOTTLE TP SCH ×2 (09:00→21:55)
[2018-06-10] MEDS: NEOMY SULF/BACITRAC ZN/POLY 15 GM TUBE TP SCH ×2 (09:00→21:55)
[2018-06-10] MEDS: FERROUS SULFATE - FOR SA ONLY 330 MG/7.5 ML UDC GT SCH ×2 (09:04→16:27)
[2018-06-10] MEDS: POLYVINYL ALCOHOL 15 ML BOTTLE OP SCH ×4 (09:05→21:55)
[2018-06-10] MEDS: PROSTAT (PYXIS) 30 ML UDC GT SCH ×2 (09:05→20:32)
[2018-06-10] MEDS: CARVEDILOL 3.125 MG TABLET GT SCH ×2 (09:05→20:31)
[2018-06-10] MEDS: ACIDOPHILUS/BULGARICUS 1 EACH TAB.CHEW GT SCH ×2 (09:05→16:27)
[2018-06-10] MEDS: SIMETHICONE SUSP 40 MG/0.6 ML BOTTLE GT SCH ×2 (09:05→20:31)
[2018-06-10] MEDS: MIDODRINE HCL (5MG) 5 MG TABLET GT SCH ×2 (09:06→20:31)
[2018-06-10] MEDS: VANCOMYCIN 1 GM in IV D5W 250ml IV SCH ×2 (10:00→20:59)
[2018-06-10] MEDS: TWOCAL HN 1,000 ML LIQUID GT PRN (18:50)
[2018-06-10 20:27] VITALS: BP 133/76
[2018-06-10] MEDS: MULTIVIT W/MINERALS 1 TAB TABLET GT SCH (20:32)
[2018-06-10] MEDS: LANOLIN/MIN OIL/PETROLAT,WHT 3.5 GM TUBE EACHEYE SCH (21:55)
[2018-06-11] MEDS: IPRATROPIUM NEB FS 0.5 MG/2.5 ML AMPUL.NEB NEB SCH ×4 (01:30→20:30)
[2018-06-11] MEDS: BACLOFEN (10 MG) 10 MG TABLET GT SCH ×2 (05:37→17:46)
[2018-06-11] MEDS: OMEPRAZOLE 20 MG CAPSULE.DR GT SCH (05:37)
[2018-06-11] MEDS: PIPERACILLIN /TAZOBACTAM 3.375 G in IV D5W 50 ML IV SCH ×3 (05:50→21:00)
[2018-06-11 07:31] VITALS: BP 97/62
[2018-06-11] MEDS: VANCOMYCIN 1 GM in IV D5W 250ml IV SCH (09:15)
[2018-06-11] MEDS: HYDROGEN PEROXIDE 480 ML BOTTLE TP SCH ×2 (09:28→21:06)
[2018-06-11] MEDS: Z GUARD REMEDY 4 OZ OINT TP SCH ×2 (09:28→21:06)
[2018-06-11] MEDS: FERROUS SULFATE - FOR SA ONLY 330 MG/7.5 ML UDC GT SCH ×2 (09:28→17:45)
[2018-06-11] MEDS: NEOMY SULF/BACITRAC ZN/POLY 15 GM TUBE TP SCH ×2 (09:28→21:06)
[2018-06-11] MEDS: CARVEDILOL 3.125 MG TABLET GT SCH ×2 (09:28→20:57)
[2018-06-11] MEDS: MIDODRINE HCL (5MG) 5 MG TABLET GT SCH ×2 (09:28→20:57)
[2018-06-11] MEDS: SIMETHICONE SUSP 40 MG/0.6 ML BOTTLE GT SCH ×2 (09:28→20:57)
[2018-06-11] MEDS: POLYVINYL ALCOHOL 15 ML BOTTLE OP SCH ×4 (09:28→21:06)
[2018-06-11] MEDS: ACIDOPHILUS/BULGARICUS 1 EACH TAB.CHEW GT SCH ×2 (09:28→17:45)
[2018-06-11] MEDS: PROSTAT (PYXIS) 30 ML UDC GT SCH ×2 (09:28→20:57)
[2018-06-11] MEDS: LORAZEPAM INJ 2 MG/ML VIAL IVP PRN ×2 (14:35→23:45)
[2018-06-11 20:07] VITALS: BP 98/58
[2018-06-11] MEDS: MULTIVIT W/MINERALS 1 TAB TABLET GT SCH (20:59)
[2018-06-11] MEDS: LANOLIN/MIN OIL/PETROLAT,WHT 3.5 GM TUBE EACHEYE SCH (21:06)
[2018-06-12] MEDS: IPRATROPIUM NEB FS 0.5 MG/2.5 ML AMPUL.NEB NEB SCH ×4 (02:22→19:57)
[2018-06-12] MEDS: OMEPRAZOLE 20 MG CAPSULE.DR GT SCH (05:36)
[2018-06-12] MEDS: BACLOFEN (10 MG) 10 MG TABLET GT SCH ×2 (05:36→17:49)
[2018-06-12] MEDS: PIPERACILLIN /TAZOBACTAM 3.375 G in IV D5W 50 ML IV SCH ×3 (05:56→21:00)
[2018-06-12 07:31] VITALS: BP 109/62
[2018-06-12] MEDS: ACIDOPHILUS/BULGARICUS 1 EACH TAB.CHEW GT SCH ×2 (08:35→17:49)
[2018-06-12] MEDS: SIMETHICONE SUSP 40 MG/0.6 ML BOTTLE GT SCH ×2 (08:35→20:28)
[2018-06-12] MEDS: FERROUS SULFATE - FOR SA ONLY 330 MG/7.5 ML UDC GT SCH ×2 (08:35→17:49)
[2018-06-12] MEDS: MIDODRINE HCL (5MG) 5 MG TABLET GT SCH ×2 (08:35→20:28)
[2018-06-12] MEDS: CARVEDILOL 3.125 MG TABLET GT SCH ×2 (08:35→20:28)
[2018-06-12] MEDS: POLYVINYL ALCOHOL 15 ML BOTTLE OP SCH ×4 (08:36→20:32)
[2018-06-12] MEDS: PROSTAT (PYXIS) 30 ML UDC GT SCH ×2 (08:36→20:29)
[2018-06-12] MEDS: NEOMY SULF/BACITRAC ZN/POLY 15 GM TUBE TP SCH ×2 (09:53→20:39)
[2018-06-12] MEDS: HYDROGEN PEROXIDE 480 ML BOTTLE TP SCH ×2 (09:53→20:39)
[2018-06-12] MEDS: Z GUARD REMEDY 4 OZ OINT TP SCH ×2 (09:53→20:39)
[2018-06-12] MEDS: LORAZEPAM INJ 2 MG/ML VIAL IVP PRN (10:21)
[2018-06-12 20:26] VITALS: BP 141/94
[2018-06-12] MEDS: MULTIVIT W/MINERALS 1 TAB TABLET GT SCH (20:32)
[2018-06-12] MEDS: AMOXICILLIN TRIHYDRATE 250 MG CAPSULE PO SCH (20:38)
[2018-06-12] MEDS: LANOLIN/MIN OIL/PETROLAT,WHT 3.5 GM TUBE EACHEYE SCH (22:00)
[2018-06-13] MEDS: IPRATROPIUM NEB FS 0.5 MG/2.5 ML AMPUL.NEB NEB SCH ×4 (01:00→20:13)
[2018-06-13] MEDS: PIPERACILLIN /TAZOBACTAM 3.375 G in IV D5W 50 ML IV SCH (05:00)
[2018-06-13] MEDS: AMOXICILLIN TRIHYDRATE 250 MG CAPSULE PO SCH ×2 (05:57→12:50)
[2018-06-13] MEDS: OMEPRAZOLE 20 MG CAPSULE.DR GT SCH (05:59)
[2018-06-13] MEDS: BACLOFEN (10 MG) 10 MG TABLET GT SCH ×2 (05:59→18:00)
[2018-06-13] MEDS: TWOCAL HN 1,000 ML LIQUID GT PRN (06:16)
[2018-06-13 07:44] VITALS: BP 139/77
[2018-06-13] MEDS: MIDODRINE HCL (5MG) 5 MG TABLET GT SCH ×2 (09:00→21:20)
[2018-06-13] MEDS: CARVEDILOL 3.125 MG TABLET GT SCH ×2 (09:00→21:20)
[2018-06-13] MEDS: HYDROGEN PEROXIDE 480 ML BOTTLE TP SCH ×2 (09:00→21:20)
[2018-06-13] MEDS: Z GUARD REMEDY 4 OZ OINT TP SCH ×2 (09:00→21:21)
[2018-06-13] MEDS: NEOMY SULF/BACITRAC ZN/POLY 15 GM TUBE TP SCH ×2 (09:00→21:20)
[2018-06-13] MEDS: ACIDOPHILUS/BULGARICUS 1 EACH TAB.CHEW GT SCH ×2 (09:35→17:00)
[2018-06-13] MEDS: POLYVINYL ALCOHOL 15 ML BOTTLE OP SCH ×4 (09:35→21:20)
[2018-06-13] MEDS: FERROUS SULFATE - FOR SA ONLY 330 MG/7.5 ML UDC GT SCH ×2 (09:35→17:00)
[2018-06-13] MEDS: PROSTAT (PYXIS) 30 ML UDC GT SCH ×2 (09:35→21:20)
[2018-06-13] MEDS: SIMETHICONE SUSP 40 MG/0.6 ML BOTTLE GT SCH ×2 (09:35→21:20)
[2018-06-13 20:15] VITALS: BP 114/73
[2018-06-13] MEDS: MULTIVIT W/MINERALS 1 TAB TABLET GT SCH (21:20)
[2018-06-13] MEDS: AMOXICILLIN TRIHYDRATE 250 MG CAPSULE GT SCH (21:20)
[2018-06-13] MEDS: LANOLIN/MIN OIL/PETROLAT,WHT 3.5 GM TUBE EACHEYE SCH (21:21)
[2018-06-14] MEDS: IPRATROPIUM NEB FS 0.5 MG/2.5 ML AMPUL.NEB NEB SCH ×4 (01:57→20:10)
[2018-06-14] MEDS: BACLOFEN (10 MG) 10 MG TABLET GT SCH ×2 (05:28→17:50)
[2018-06-14] MEDS: AMOXICILLIN TRIHYDRATE 250 MG CAPSULE GT SCH (05:28)
[2018-06-14] MEDS: OMEPRAZOLE 20 MG CAPSULE.DR GT SCH (05:28)
[2018-06-14] MEDS: TWOCAL HN 1,000 ML LIQUID GT PRN (07:07)
[2018-06-14 07:32] VITALS: BP 119/67
[2018-06-14] MEDS: CARVEDILOL 3.125 MG TABLET GT SCH ×2 (09:17→21:17)
[2018-06-14] MEDS: ACIDOPHILUS/BULGARICUS 1 EACH TAB.CHEW GT SCH ×2 (09:17→17:50)
[2018-06-14] MEDS: PROSTAT (PYXIS) 30 ML UDC GT SCH ×2 (09:17→21:18)
[2018-06-14] MEDS: SIMETHICONE SUSP 40 MG/0.6 ML BOTTLE GT SCH ×2 (09:17→21:17)
[2018-06-14] MEDS: NEOMY SULF/BACITRAC ZN/POLY 15 GM TUBE TP SCH (09:17)
[2018-06-14] MEDS: Z GUARD REMEDY 4 OZ OINT TP SCH ×2 (09:17→21:18)
[2018-06-14] MEDS: FERROUS SULFATE - FOR SA ONLY 330 MG/7.5 ML UDC GT SCH ×2 (09:17→17:50)
[2018-06-14] MEDS: MIDODRINE HCL (5MG) 5 MG TABLET GT SCH ×2 (09:17→21:00)
[2018-06-14] MEDS: HYDROGEN PEROXIDE 480 ML BOTTLE TP SCH ×2 (09:17→21:18)
[2018-06-14] MEDS: POLYVINYL ALCOHOL 15 ML BOTTLE OP SCH ×4 (09:17→21:18)
[2018-06-14] MEDS: AMOXICILLIN TRIHYDRATE 500 MG CAPSULE NG SCH ×2 (13:04→21:18)
[2018-06-14 19:59] VITALS: BP 122/79
[2018-06-14] MEDS: LANOLIN/MIN OIL/PETROLAT,WHT 3.5 GM TUBE EACHEYE SCH (21:18)
[2018-06-14] MEDS: MULTIVIT W/MINERALS 1 TAB TABLET GT SCH (21:18)
[2018-06-15] MEDS: IPRATROPIUM NEB FS 0.5 MG/2.5 ML AMPUL.NEB NEB SCH ×4 (01:53→20:17)
[2018-06-15] MEDS: OMEPRAZOLE 20 MG CAPSULE.DR GT SCH (05:52)
[2018-06-15] MEDS: AMOXICILLIN TRIHYDRATE 500 MG CAPSULE NG SCH ×3 (05:52→21:40)
[2018-06-15] MEDS: BACLOFEN (10 MG) 10 MG TABLET GT SCH ×2 (05:52→17:26)
[2018-06-15 07:28] LABS: BASOPHILS % (AUTO) 0.2 % (0.0-2.0); EOSINOPHILS % (AUTO) 6.8 % (0.0-6.0); HEMATOCRIT 31 % (33-45); HEMOGLOBIN 9.4 g/dL (11.5-14.8); LYMPHOCYTES # (AUTO) 2.7 /CMM (0.8-4.8); LYMPHOCYTES % (AUTO) 38.8 % (20.0-44.0); MEAN CORPUSCULAR HGB CONC 31 g/dl (31.0-36.0); MEAN CORPUSCULAR VOLUME 85 fL (82-100); MONOCYTES # (AUTO) 0.4 /CMM (0.1-1.30); MONOCYTES % (AUTO) 6.3 % (2.0-12.0); NEUTROPHILS # (AUTO) 3.4 /CMM (1.8-8.9); NEUTROPHILS % (AUTO) 47.9 % (43.0-81.0); PLATELET COUNT (AUTO) 188 /CMM (150-450); RED BLOOD CELL COUNT(AUTO) 3.61 MIL/uL (4.0-5.2)
[2018-06-15 08:08] VITALS: BP 95/43
[2018-06-15] MEDS: POLYVINYL ALCOHOL 15 ML BOTTLE OP SCH ×4 (09:37→21:40)
[2018-06-15] MEDS: MIDODRINE HCL (5MG) 5 MG TABLET GT SCH ×2 (09:37→21:38)
[2018-06-15] MEDS: ACIDOPHILUS/BULGARICUS 1 EACH TAB.CHEW GT SCH ×2 (09:37→16:50)
[2018-06-15] MEDS: FERROUS SULFATE - FOR SA ONLY 330 MG/7.5 ML UDC GT SCH ×2 (09:37→16:50)
[2018-06-15] MEDS: SIMETHICONE SUSP 40 MG/0.6 ML BOTTLE GT SCH ×2 (09:37→21:36)
[2018-06-15] MEDS: PROSTAT (PYXIS) 30 ML UDC GT SCH ×2 (09:37→21:38)
[2018-06-15] MEDS: HYDROGEN PEROXIDE 480 ML BOTTLE TP SCH ×2 (09:37→21:42)
[2018-06-15] MEDS: CARVEDILOL 3.125 MG TABLET GT SCH ×2 (09:37→21:36)
[2018-06-15] MEDS: Z GUARD REMEDY 4 OZ OINT TP SCH ×2 (09:38→21:42)
[2018-06-15 20:16] VITALS: BP 100/66
[2018-06-15] MEDS: MULTIVIT W/MINERALS 1 TAB TABLET GT SCH (21:40)
[2018-06-15] MEDS: LANOLIN/MIN OIL/PETROLAT,WHT 3.5 GM TUBE EACHEYE SCH (21:40)
[2018-06-16] MEDS: IPRATROPIUM NEB FS 0.5 MG/2.5 ML AMPUL.NEB NEB SCH ×4 (01:37→18:55)
[2018-06-16] MEDS: BACLOFEN (10 MG) 10 MG TABLET GT SCH ×2 (05:36→17:21)
[2018-06-16] MEDS: AMOXICILLIN TRIHYDRATE 500 MG CAPSULE NG SCH ×3 (05:36→21:37)
[2018-06-16] MEDS: OMEPRAZOLE 20 MG CAPSULE.DR GT SCH (05:36)
[2018-06-16 07:23] VITALS: BP 84/34
[2018-06-16 07:33] LABS: BASOPHILS # (AUTO) 0.1 /CMM (0.0-0.2); BASOPHILS % (AUTO) 0.7 % (0.0-2.0); EOSINOPHILS % (AUTO) 6.6 % (0.0-6.0); HEMATOCRIT 27 % (33-45); HEMOGLOBIN 8.3 g/dL (11.5-14.8); LYMPHOCYTES # (AUTO) 7.3 /CMM (0.8-4.8); LYMPHOCYTES % (AUTO) 49.1 % (20.0-44.0); MEAN CORPUSCULAR HGB CONC 31 g/dl (31.0-36.0); MEAN CORPUSCULAR VOLUME 85 fL (82-100); MONOCYTES % (AUTO) 7.1 % (2.0-12.0); NEUTROPHILS # (AUTO) 5.4 /CMM (1.8-8.9); NEUTROPHILS % (AUTO) 36.5 % (43.0-81.0); PLATELET COUNT (AUTO) 190 /CMM (150-450); WHITE BLOOD COUNT (AUTO) 14.8 K/uL (4.3-11.0)
[2018-06-16 07:41] LABS: CALCIUM, SERUM 9.3 mg/dL (8.5-10.1); CREATININE 0.4 mg/dL (0.6-1.3); MAGNESIUM 1.9 mg/dL (1.8-2.4); POTASSIUM 4.1 mmol/L (3.5-5.1)
[2018-06-16] MEDS: POLYVINYL ALCOHOL 15 ML BOTTLE OP SCH ×4 (09:00→21:37)
[2018-06-16] MEDS: PROSTAT (PYXIS) 30 ML UDC GT SCH ×2 (09:00→21:37)
[2018-06-16] MEDS: HYDROGEN PEROXIDE 480 ML BOTTLE TP SCH ×2 (09:00→21:37)
[2018-06-16] MEDS: CARVEDILOL 3.125 MG TABLET GT SCH ×2 (09:00→21:37)
[2018-06-16] MEDS: FERROUS SULFATE - FOR SA ONLY 330 MG/7.5 ML UDC GT SCH ×2 (09:00→17:21)
[2018-06-16] MEDS: MIDODRINE HCL (5MG) 5 MG TABLET GT SCH ×2 (09:00→21:37)
[2018-06-16] MEDS: Z GUARD REMEDY 4 OZ OINT TP SCH ×2 (09:00→21:37)
[2018-06-16] MEDS: ACIDOPHILUS/BULGARICUS 1 EACH TAB.CHEW GT SCH ×2 (09:00→17:21)
[2018-06-16] MEDS: SIMETHICONE SUSP 40 MG/0.6 ML BOTTLE GT SCH ×2 (09:00→21:37)
[2018-06-16] MEDS: TWOCAL HN 1,000 ML LIQUID GT PRN (17:21)
[2018-06-16 20:31] VITALS: BP 118/82
[2018-06-16] MEDS: MULTIVIT W/MINERALS 1 TAB TABLET GT SCH (21:37)
[2018-06-16] MEDS: LANOLIN/MIN OIL/PETROLAT,WHT 3.5 GM TUBE EACHEYE SCH (21:37)
[2018-06-17] MEDS: IPRATROPIUM NEB FS 0.5 MG/2.5 ML AMPUL.NEB NEB SCH ×4 (02:03→20:03)
[2018-06-17] MEDS: AMOXICILLIN TRIHYDRATE 500 MG CAPSULE NG SCH ×3 (05:19→20:55)
[2018-06-17] MEDS: OMEPRAZOLE 20 MG CAPSULE.DR GT SCH (05:19)
[2018-06-17] MEDS: BACLOFEN (10 MG) 10 MG TABLET GT SCH ×2 (05:19→17:58)
[2018-06-17 07:24] VITALS: BP 91/53
[2018-06-17] MEDS: HYDROGEN PEROXIDE 480 ML BOTTLE TP SCH ×2 (09:00→20:56)
[2018-06-17] MEDS: Z GUARD REMEDY 4 OZ OINT TP SCH ×2 (09:00→20:56)
[2018-06-17] MEDS: FERROUS SULFATE - FOR SA ONLY 330 MG/7.5 ML UDC GT SCH ×2 (09:00→17:58)
[2018-06-17] MEDS: CARVEDILOL 3.125 MG TABLET GT SCH ×2 (09:00→20:55)
[2018-06-17] MEDS: POLYVINYL ALCOHOL 15 ML BOTTLE OP SCH ×4 (09:00→20:56)
[2018-06-17] MEDS: MIDODRINE HCL (5MG) 5 MG TABLET GT SCH ×2 (09:00→20:55)
[2018-06-17] MEDS: PROSTAT (PYXIS) 30 ML UDC GT SCH ×2 (09:00→20:55)
[2018-06-17] MEDS: ACIDOPHILUS/BULGARICUS 1 EACH TAB.CHEW GT SCH ×2 (09:00→17:58)
[2018-06-17] MEDS: SIMETHICONE SUSP 40 MG/0.6 ML BOTTLE GT SCH ×2 (09:00→20:55)
[2018-06-17 19:50] VITALS: BP 97/62
[2018-06-17 19:53] VITALS: BP 97/62
[2018-06-17] MEDS: MULTIVIT W/MINERALS 1 TAB TABLET GT SCH (20:55)
[2018-06-17] MEDS: LANOLIN/MIN OIL/PETROLAT,WHT 3.5 GM TUBE EACHEYE SCH (22:17)
[2018-06-18] MEDS: IPRATROPIUM NEB FS 0.5 MG/2.5 ML AMPUL.NEB NEB SCH ×4 (01:31→19:47)
[2018-06-18] MEDS: AMOXICILLIN TRIHYDRATE 500 MG CAPSULE NG SCH ×3 (05:12→21:24)
[2018-06-18] MEDS: BACLOFEN (10 MG) 10 MG TABLET GT SCH ×2 (05:12→18:00)
[2018-06-18] MEDS: OMEPRAZOLE 20 MG CAPSULE.DR GT SCH (05:12)
[2018-06-18] MEDS: TWOCAL HN 1,000 ML LIQUID GT PRN (06:01)
[2018-06-18 07:39] VITALS: BP 115/73
[2018-06-18] MEDS: PROSTAT (PYXIS) 30 ML UDC GT SCH ×2 (09:56→21:24)
[2018-06-18] MEDS: POLYVINYL ALCOHOL 15 ML BOTTLE OP SCH ×4 (09:56→21:24)
[2018-06-18] MEDS: CARVEDILOL 3.125 MG TABLET GT SCH ×2 (09:56→21:24)
[2018-06-18] MEDS: FERROUS SULFATE - FOR SA ONLY 330 MG/7.5 ML UDC GT SCH ×2 (09:56→17:00)
[2018-06-18] MEDS: MIDODRINE HCL (5MG) 5 MG TABLET GT SCH ×2 (09:56→21:24)
[2018-06-18] MEDS: ACIDOPHILUS/BULGARICUS 1 EACH TAB.CHEW GT SCH ×2 (09:56→17:00)
[2018-06-18] MEDS: SIMETHICONE SUSP 40 MG/0.6 ML BOTTLE GT SCH ×2 (09:56→21:24)
[2018-06-18] MEDS: Z GUARD REMEDY 4 OZ OINT TP SCH ×2 (09:57→21:24)
[2018-06-18] MEDS: HYDROGEN PEROXIDE 480 ML BOTTLE TP SCH ×2 (09:57→21:24)
[2018-06-18] MEDS: MULTIVIT W/MINERALS 1 TAB TABLET GT SCH (21:24)
[2018-06-18] MEDS: LANOLIN/MIN OIL/PETROLAT,WHT 3.5 GM TUBE EACHEYE SCH (21:24)
[2018-06-19 00:21] VITALS: BP 94/59
[2018-06-19] MEDS: IPRATROPIUM NEB FS 0.5 MG/2.5 ML AMPUL.NEB NEB SCH ×4 (01:45→20:20)
[2018-06-19] MEDS: BACLOFEN (10 MG) 10 MG TABLET GT SCH ×2 (05:31→17:49)
[2018-06-19] MEDS: OMEPRAZOLE 20 MG CAPSULE.DR GT SCH (05:31)
[2018-06-19] MEDS: AMOXICILLIN TRIHYDRATE 500 MG CAPSULE NG SCH ×3 (05:31→21:38)
[2018-06-19] MEDS: TWOCAL HN 1,000 ML LIQUID GT PRN (06:01)
[2018-06-19 07:58] VITALS: BP 114/71
[2018-06-19] MEDS: SIMETHICONE SUSP 40 MG/0.6 ML BOTTLE GT SCH ×2 (09:50→21:38)
[2018-06-19] MEDS: CARVEDILOL 3.125 MG TABLET GT SCH ×2 (09:50→21:38)
[2018-06-19] MEDS: FERROUS SULFATE - FOR SA ONLY 330 MG/7.5 ML UDC GT SCH ×2 (09:50→17:17)
[2018-06-19] MEDS: ACIDOPHILUS/BULGARICUS 1 EACH TAB.CHEW GT SCH ×2 (09:50→17:17)
[2018-06-19] MEDS: POLYVINYL ALCOHOL 15 ML BOTTLE OP SCH ×4 (09:51→21:38)
[2018-06-19] MEDS: MIDODRINE HCL (5MG) 5 MG TABLET GT SCH ×2 (09:51→21:38)
[2018-06-19] MEDS: PROSTAT (PYXIS) 30 ML UDC GT SCH ×2 (09:51→21:38)
[2018-06-19] MEDS: Z GUARD REMEDY 4 OZ OINT TP SCH ×2 (09:51→21:38)
[2018-06-19] MEDS: HYDROGEN PEROXIDE 480 ML BOTTLE TP SCH ×2 (09:51→21:38)
[2018-06-19 20:24] VITALS: BP 113/78
[2018-06-19] MEDS: MULTIVIT W/MINERALS 1 TAB TABLET GT SCH (21:38)
[2018-06-19] MEDS: LANOLIN/MIN OIL/PETROLAT,WHT 3.5 GM TUBE EACHEYE SCH (21:38)
[2018-06-20] MEDS: IPRATROPIUM NEB FS 0.5 MG/2.5 ML AMPUL.NEB NEB SCH ×4 (02:28→20:19)
[2018-06-20] MEDS: AMOXICILLIN TRIHYDRATE 500 MG CAPSULE NG SCH ×3 (05:00→21:52)
[2018-06-20] MEDS: BACLOFEN (10 MG) 10 MG TABLET GT SCH ×2 (06:03→17:40)
[2018-06-20] MEDS: OMEPRAZOLE 20 MG CAPSULE.DR GT SCH (06:03)
[2018-06-20 07:41] VITALS: BP 105/55
[2018-06-20] MEDS: SIMETHICONE SUSP 40 MG/0.6 ML BOTTLE GT SCH ×2 (09:00→21:51)
[2018-06-20] MEDS: CARVEDILOL 3.125 MG TABLET GT SCH ×2 (09:00→21:51)
[2018-06-20] MEDS: FERROUS SULFATE - FOR SA ONLY 330 MG/7.5 ML UDC GT SCH ×2 (09:00→17:40)
[2018-06-20] MEDS: Z GUARD REMEDY 4 OZ OINT TP SCH ×2 (09:00→21:52)
[2018-06-20] MEDS: PROSTAT (PYXIS) 30 ML UDC GT SCH ×2 (09:00→21:52)
[2018-06-20] MEDS: POLYVINYL ALCOHOL 15 ML BOTTLE OP SCH ×4 (09:00→21:52)
[2018-06-20] MEDS: MIDODRINE HCL (5MG) 5 MG TABLET GT SCH ×2 (09:00→21:52)
[2018-06-20] MEDS: ACIDOPHILUS/BULGARICUS 1 EACH TAB.CHEW GT SCH ×2 (09:00→17:40)
[2018-06-20] MEDS: HYDROGEN PEROXIDE 480 ML BOTTLE TP SCH ×2 (09:00→21:52)
[2018-06-20] MEDS: TWOCAL HN 1,000 ML LIQUID GT PRN (14:02)
[2018-06-20 19:51] VITALS: BP 106/56
[2018-06-20] MEDS: MULTIVIT W/MINERALS 1 TAB TABLET GT SCH (21:52)
[2018-06-20] MEDS: LANOLIN/MIN OIL/PETROLAT,WHT 3.5 GM TUBE EACHEYE SCH (21:52)
[2018-06-21] MEDS: IPRATROPIUM NEB FS 0.5 MG/2.5 ML AMPUL.NEB NEB SCH ×4 (01:23→19:55)
[2018-06-21] MEDS: AMOXICILLIN TRIHYDRATE 500 MG CAPSULE NG SCH ×3 (05:00→21:08)
[2018-06-21] MEDS: OMEPRAZOLE 20 MG CAPSULE.DR GT SCH (06:18)
[2018-06-21] MEDS: BACLOFEN (10 MG) 10 MG TABLET GT SCH ×2 (06:18→17:10)
[2018-06-21 07:42] VITALS: BP 98/59
[2018-06-21] MEDS: HYDROGEN PEROXIDE 480 ML BOTTLE TP SCH ×2 (09:00→21:08)
[2018-06-21] MEDS: Z GUARD REMEDY 4 OZ OINT TP SCH ×2 (09:00→21:08)
[2018-06-21] MEDS: SIMETHICONE SUSP 40 MG/0.6 ML BOTTLE GT SCH ×2 (09:14→21:07)
[2018-06-21] MEDS: MIDODRINE HCL (5MG) 5 MG TABLET GT SCH ×2 (09:14→21:00)
[2018-06-21] MEDS: POLYVINYL ALCOHOL 15 ML BOTTLE OP SCH ×4 (09:14→21:08)
[2018-06-21] MEDS: CARVEDILOL 3.125 MG TABLET GT SCH ×2 (09:14→21:07)
[2018-06-21] MEDS: PROSTAT (PYXIS) 30 ML UDC GT SCH ×2 (09:14→21:08)
[2018-06-21] MEDS: FERROUS SULFATE - FOR SA ONLY 330 MG/7.5 ML UDC GT SCH ×2 (09:14→17:10)
[2018-06-21] MEDS: ACIDOPHILUS/BULGARICUS 1 EACH TAB.CHEW GT SCH ×2 (09:14→17:10)
[2018-06-21] MEDS: LORAZEPAM INJ 2 MG/ML VIAL IVP PRN (15:15)
[2018-06-21] MEDS: TWOCAL HN 1,000 ML LIQUID GT PRN (18:56)
[2018-06-21 20:23] VITALS: BP 120/59
[2018-06-21] MEDS: MULTIVIT W/MINERALS 1 TAB TABLET GT SCH (21:08)
[2018-06-21] MEDS: LANOLIN/MIN OIL/PETROLAT,WHT 3.5 GM TUBE EACHEYE SCH (21:08)
[2018-06-22] MEDS: IPRATROPIUM NEB FS 0.5 MG/2.5 ML AMPUL.NEB NEB SCH ×4 (02:28→20:17)
[2018-06-22] MEDS: AMOXICILLIN TRIHYDRATE 500 MG CAPSULE NG SCH ×2 (05:51→12:44)
[2018-06-22] MEDS: OMEPRAZOLE 20 MG CAPSULE.DR GT SCH (05:51)
[2018-06-22] MEDS: BACLOFEN (10 MG) 10 MG TABLET GT SCH ×2 (05:51→17:54)
[2018-06-22 07:55] VITALS: BP 98/50
[2018-06-22] MEDS: Z GUARD REMEDY 4 OZ OINT TP SCH ×2 (09:00→21:19)
[2018-06-22] MEDS: HYDROGEN PEROXIDE 480 ML BOTTLE TP SCH ×2 (09:00→21:19)
[2018-06-22] MEDS: ACIDOPHILUS/BULGARICUS 1 EACH TAB.CHEW GT SCH ×2 (09:30→17:53)
[2018-06-22] MEDS: CARVEDILOL 3.125 MG TABLET GT SCH ×2 (09:30→21:20)
[2018-06-22] MEDS: FERROUS SULFATE - FOR SA ONLY 330 MG/7.5 ML UDC GT SCH ×2 (09:30→17:53)
[2018-06-22] MEDS: SIMETHICONE SUSP 40 MG/0.6 ML BOTTLE GT SCH ×2 (09:30→21:18)
[2018-06-22] MEDS: PROSTAT (PYXIS) 30 ML UDC GT SCH ×2 (09:31→21:18)
[2018-06-22] MEDS: POLYVINYL ALCOHOL 15 ML BOTTLE OP SCH ×4 (09:31→21:18)
[2018-06-22] MEDS: MIDODRINE HCL (5MG) 5 MG TABLET GT SCH ×2 (09:31→21:00)
[2018-06-22 19:48] VITALS: BP 127/70
[2018-06-22] MEDS: MULTIVIT W/MINERALS 1 TAB TABLET GT SCH (21:18)
[2018-06-22] MEDS: LANOLIN/MIN OIL/PETROLAT,WHT 3.5 GM TUBE EACHEYE SCH (21:19)
[2018-06-23] MEDS: TWOCAL HN 1,000 ML LIQUID GT PRN (00:55)
[2018-06-23] MEDS: IPRATROPIUM NEB FS 0.5 MG/2.5 ML AMPUL.NEB NEB SCH ×4 (01:08→20:17)
[2018-06-23] MEDS: BACLOFEN (10 MG) 10 MG TABLET GT SCH ×2 (05:51→17:33)
[2018-06-23] MEDS: OMEPRAZOLE 20 MG CAPSULE.DR GT SCH (05:51)
[2018-06-23 07:41] VITALS: BP 136/78
[2018-06-23] MEDS: PROSTAT (PYXIS) 30 ML UDC GT SCH ×2 (09:00→21:40)
[2018-06-23] MEDS: HYDROGEN PEROXIDE 480 ML BOTTLE TP SCH ×2 (09:00→21:40)
[2018-06-23] MEDS: ACIDOPHILUS/BULGARICUS 1 EACH TAB.CHEW GT SCH ×2 (09:00→17:33)
[2018-06-23] MEDS: CARVEDILOL 3.125 MG TABLET GT SCH ×2 (09:00→21:59)
[2018-06-23] MEDS: POLYVINYL ALCOHOL 15 ML BOTTLE OP SCH ×4 (09:00→21:40)
[2018-06-23] MEDS: SIMETHICONE SUSP 40 MG/0.6 ML BOTTLE GT SCH ×2 (09:00→21:59)
[2018-06-23] MEDS: Z GUARD REMEDY 4 OZ OINT TP SCH ×2 (09:00→21:40)
[2018-06-23] MEDS: MIDODRINE HCL (5MG) 5 MG TABLET GT SCH ×2 (09:00→22:00)
[2018-06-23] MEDS: FERROUS SULFATE - FOR SA ONLY 330 MG/7.5 ML UDC GT SCH ×2 (09:00→17:33)
[2018-06-23 19:24] VITALS: BP 108/81
[2018-06-23] MEDS: MULTIVIT W/MINERALS 1 TAB TABLET GT SCH (21:40)
[2018-06-23] MEDS: LANOLIN/MIN OIL/PETROLAT,WHT 3.5 GM TUBE EACHEYE SCH (22:00)
[2018-06-24] MEDS: IPRATROPIUM NEB FS 0.5 MG/2.5 ML AMPUL.NEB NEB SCH ×4 (00:43→20:02)
[2018-06-24] MEDS: BACLOFEN (10 MG) 10 MG TABLET GT SCH ×2 (05:35→17:28)
[2018-06-24] MEDS: OMEPRAZOLE 20 MG CAPSULE.DR GT SCH (05:35)
[2018-06-24] MEDS: TWOCAL HN 1,000 ML LIQUID GT PRN (06:08)
[2018-06-24 07:32] VITALS: BP 112/75
[2018-06-24] MEDS: Z GUARD REMEDY 4 OZ OINT TP SCH ×2 (09:52→21:22)
[2018-06-24] MEDS: POLYVINYL ALCOHOL 15 ML BOTTLE OP SCH ×4 (09:52→21:22)
[2018-06-24] MEDS: CARVEDILOL 3.125 MG TABLET GT SCH ×2 (09:52→21:20)
[2018-06-24] MEDS: ACIDOPHILUS/BULGARICUS 1 EACH TAB.CHEW GT SCH ×2 (09:52→17:28)
[2018-06-24] MEDS: MIDODRINE HCL (5MG) 5 MG TABLET GT SCH ×2 (09:52→21:21)
[2018-06-24] MEDS: FERROUS SULFATE - FOR SA ONLY 330 MG/7.5 ML UDC GT SCH ×2 (09:52→17:28)
[2018-06-24] MEDS: HYDROGEN PEROXIDE 480 ML BOTTLE TP SCH ×2 (09:52→21:22)
[2018-06-24] MEDS: SIMETHICONE SUSP 40 MG/0.6 ML BOTTLE GT SCH ×2 (09:52→21:20)
[2018-06-24] MEDS: PROSTAT (PYXIS) 30 ML UDC GT SCH ×2 (09:52→21:21)
[2018-06-24] MEDS: MULTIVIT W/MINERALS 1 TAB TABLET GT SCH (21:21)
[2018-06-24] MEDS: LANOLIN/MIN OIL/PETROLAT,WHT 3.5 GM TUBE EACHEYE SCH (21:22)
[2018-06-25] MEDS: IPRATROPIUM NEB FS 0.5 MG/2.5 ML AMPUL.NEB NEB SCH ×4 (00:40→20:07)
[2018-06-25] MEDS: OMEPRAZOLE 20 MG CAPSULE.DR GT SCH (05:51)
[2018-06-25] MEDS: BACLOFEN (10 MG) 10 MG TABLET GT SCH ×2 (05:51→17:30)
[2018-06-25 07:23] VITALS: BP 102/60
[2018-06-25] MEDS: CARVEDILOL 3.125 MG TABLET GT SCH ×2 (09:57→20:53)
[2018-06-25] MEDS: FERROUS SULFATE - FOR SA ONLY 330 MG/7.5 ML UDC GT SCH ×2 (09:57→17:29)
[2018-06-25] MEDS: SIMETHICONE SUSP 40 MG/0.6 ML BOTTLE GT SCH ×2 (09:57→20:53)
[2018-06-25] MEDS: ACIDOPHILUS/BULGARICUS 1 EACH TAB.CHEW GT SCH ×2 (09:57→17:29)
[2018-06-25] MEDS: POLYVINYL ALCOHOL 15 ML BOTTLE OP SCH ×4 (09:58→20:53)
[2018-06-25] MEDS: HYDROGEN PEROXIDE 480 ML BOTTLE TP SCH ×2 (09:58→20:53)
[2018-06-25] MEDS: PROSTAT (PYXIS) 30 ML UDC GT SCH ×2 (09:58→20:53)
[2018-06-25] MEDS: MIDODRINE HCL (5MG) 5 MG TABLET GT SCH ×2 (09:58→20:53)
[2018-06-25] MEDS: Z GUARD REMEDY 4 OZ OINT TP SCH ×2 (09:58→20:53)
[2018-06-25 19:49] VITALS: BP 109/76
[2018-06-25] MEDS: MULTIVIT W/MINERALS 1 TAB TABLET GT SCH (20:53)
[2018-06-25] MEDS: LANOLIN/MIN OIL/PETROLAT,WHT 3.5 GM TUBE EACHEYE SCH (22:00)
[2018-06-26] MEDS: IPRATROPIUM NEB FS 0.5 MG/2.5 ML AMPUL.NEB NEB SCH ×4 (01:39→19:58)
[2018-06-26] MEDS: BACLOFEN (10 MG) 10 MG TABLET GT SCH ×2 (06:12→18:48)
[2018-06-26] MEDS: OMEPRAZOLE 20 MG CAPSULE.DR GT SCH (06:12)
[2018-06-26 08:06] VITALS: BP 126/77
[2018-06-26] MEDS: MIDODRINE HCL (5MG) 5 MG TABLET GT SCH ×2 (09:00→21:00)
[2018-06-26] MEDS: SIMETHICONE SUSP 40 MG/0.6 ML BOTTLE GT SCH ×2 (09:26→21:24)
[2018-06-26] MEDS: ACIDOPHILUS/BULGARICUS 1 EACH TAB.CHEW GT SCH ×2 (09:26→16:51)
[2018-06-26] MEDS: FERROUS SULFATE - FOR SA ONLY 330 MG/7.5 ML UDC GT SCH ×2 (09:26→16:51)
[2018-06-26] MEDS: CARVEDILOL 3.125 MG TABLET GT SCH ×2 (09:26→21:24)
[2018-06-26] MEDS: Z GUARD REMEDY 4 OZ OINT TP SCH ×3 (09:27→21:25)
[2018-06-26] MEDS: POLYVINYL ALCOHOL 15 ML BOTTLE OP SCH ×4 (09:27→21:25)
[2018-06-26] MEDS: PROSTAT (PYXIS) 30 ML UDC GT SCH ×2 (09:27→21:24)
[2018-06-26] MEDS: HYDROGEN PEROXIDE 480 ML BOTTLE TP SCH ×2 (09:27→21:25)
[2018-06-26] MEDS: LORAZEPAM INJ 2 MG/ML VIAL IVP PRN (10:05)
[2018-06-26 15:35] LABS: BASOPHILS # (AUTO) 0.1 /CMM (0.0-0.2); BASOPHILS % (AUTO) 0.7 % (0.0-2.0); EOSINOPHILS % (AUTO) 2.4 % (0.0-6.0); HEMATOCRIT 31 % (33-45); HEMOGLOBIN 9.7 g/dL (11.5-14.8); LYMPHOCYTES # (AUTO) 2.4 /CMM (0.8-4.8); LYMPHOCYTES % (AUTO) 31.8 % (20.0-44.0); MEAN CORPUSCULAR HGB CONC 31 g/dl (31.0-36.0); MEAN CORPUSCULAR VOLUME 83 fL (82-100); MONOCYTES # (AUTO) 0.4 /CMM (0.1-1.30); MONOCYTES % (AUTO) 5.1 % (2.0-12.0); NEUTROPHILS # (AUTO) 4.6 /CMM (1.8-8.9); PLATELET COUNT (AUTO) 236 /CMM (150-450); RED BLOOD CELL COUNT(AUTO) 3.76 MIL/uL (4.0-5.2); WHITE BLOOD COUNT (AUTO) 7.6 K/uL (4.3-11.0)
[2018-06-26 15:44] LABS: CALCIUM, SERUM 9.7 mg/dL (8.5-10.1); CREATININE 0.6 mg/dL (0.6-1.3); POTASSIUM 3.8 mmol/L (3.5-5.1)
[2018-06-26] MEDS ORDERED: Z GUARD REMEDY 4 OZ OINT TP PRN (18:30)
[2018-06-26 19:56] VITALS: BP 130/76
[2018-06-26] MEDS: MULTIVIT W/MINERALS 1 TAB TABLET GT SCH (21:24)
[2018-06-26] MEDS: LANOLIN/MIN OIL/PETROLAT,WHT 3.5 GM TUBE EACHEYE SCH (21:25)
[2018-06-27] MEDS: IPRATROPIUM NEB FS 0.5 MG/2.5 ML AMPUL.NEB NEB SCH ×4 (01:35→20:05)
[2018-06-27] MEDS: OMEPRAZOLE 20 MG CAPSULE.DR GT SCH (05:49)
[2018-06-27] MEDS: BACLOFEN (10 MG) 10 MG TABLET GT SCH ×2 (05:49→17:09)
[2018-06-27 08:00] VITALS: BP 92/51
[2018-06-27] MEDS: CARVEDILOL 3.125 MG TABLET GT SCH ×2 (09:00→21:31)
[2018-06-27] MEDS: ACIDOPHILUS/BULGARICUS 1 EACH TAB.CHEW GT SCH ×2 (09:11→16:15)
[2018-06-27] MEDS: FERROUS SULFATE - FOR SA ONLY 330 MG/7.5 ML UDC GT SCH ×2 (09:11→16:14)
[2018-06-27] MEDS: SIMETHICONE SUSP 40 MG/0.6 ML BOTTLE GT SCH ×2 (09:12→21:31)
[2018-06-27] MEDS: Z GUARD REMEDY 4 OZ OINT TP SCH ×4 (09:14→21:31)
[2018-06-27] MEDS: PROSTAT (PYXIS) 30 ML UDC GT SCH ×2 (09:14→21:31)
[2018-06-27] MEDS: HYDROGEN PEROXIDE 480 ML BOTTLE TP SCH ×2 (09:14→21:31)
[2018-06-27] MEDS: MIDODRINE HCL (5MG) 5 MG TABLET GT SCH ×2 (09:14→21:31)
[2018-06-27] MEDS: POLYVINYL ALCOHOL 15 ML BOTTLE OP SCH ×4 (09:15→21:31)
[2018-06-27 21:00] VITALS: BP 94/68
[2018-06-27] MEDS: MULTIVIT W/MINERALS 1 TAB TABLET GT SCH (21:31)
[2018-06-27] MEDS: LANOLIN/MIN OIL/PETROLAT,WHT 3.5 GM TUBE EACHEYE SCH (21:32)
[2018-06-28] MEDS: IPRATROPIUM NEB FS 0.5 MG/2.5 ML AMPUL.NEB NEB SCH ×4 (01:10→19:45)
[2018-06-28] MEDS: BACLOFEN (10 MG) 10 MG TABLET GT SCH ×2 (06:15→17:23)
[2018-06-28] MEDS: OMEPRAZOLE 20 MG CAPSULE.DR GT SCH (06:15)
[2018-06-28 08:32] VITALS: BP 126/73
[2018-06-28] MEDS: Z GUARD REMEDY 4 OZ OINT TP SCH ×4 (09:00→21:00)
[2018-06-28] MEDS: MIDODRINE HCL (5MG) 5 MG TABLET GT SCH ×2 (09:00→21:00)
[2018-06-28] MEDS: HYDROGEN PEROXIDE 480 ML BOTTLE TP SCH ×2 (09:00→21:00)
[2018-06-28] MEDS: CARVEDILOL 3.125 MG TABLET GT SCH ×2 (09:32→21:00)
[2018-06-28] MEDS: SIMETHICONE SUSP 40 MG/0.6 ML BOTTLE GT SCH ×2 (09:32→21:00)
[2018-06-28] MEDS: FERROUS SULFATE - FOR SA ONLY 330 MG/7.5 ML UDC GT SCH ×2 (09:32→17:23)
[2018-06-28] MEDS: ACIDOPHILUS/BULGARICUS 1 EACH TAB.CHEW GT SCH ×2 (09:32→17:23)
[2018-06-28] MEDS: POLYVINYL ALCOHOL 15 ML BOTTLE OP SCH ×4 (09:33→21:00)
[2018-06-28] MEDS: PROSTAT (PYXIS) 30 ML UDC GT SCH ×2 (09:33→21:00)
[2018-06-28] MEDS: TWOCAL HN 1,000 ML LIQUID GT PRN (12:45)
[2018-06-28] MEDS: MULTIVIT W/MINERALS 1 TAB TABLET GT SCH (21:00)
[2018-06-28] MEDS: LANOLIN/MIN OIL/PETROLAT,WHT 3.5 GM TUBE EACHEYE SCH (22:06)
[2018-06-29] MEDS: IPRATROPIUM NEB FS 0.5 MG/2.5 ML AMPUL.NEB NEB SCH ×4 (01:22→19:55)
[2018-06-29] MEDS: BACLOFEN (10 MG) 10 MG TABLET GT SCH ×2 (06:42→18:13)
[2018-06-29] MEDS: OMEPRAZOLE 20 MG CAPSULE.DR GT SCH (06:42)
[2018-06-29 07:00] VITALS: BP 106/58
[2018-06-29 07:34] VITALS: BP 113/68
[2018-06-29] MEDS: MIDODRINE HCL (5MG) 5 MG TABLET GT SCH ×2 (08:53→21:00)
[2018-06-29] MEDS: CARVEDILOL 3.125 MG TABLET GT SCH ×2 (08:53→21:53)
[2018-06-29] MEDS: FERROUS SULFATE - FOR SA ONLY 330 MG/7.5 ML UDC GT SCH ×2 (08:53→17:00)
[2018-06-29] MEDS: ACIDOPHILUS/BULGARICUS 1 EACH TAB.CHEW GT SCH ×2 (08:53→17:00)
[2018-06-29] MEDS: PROSTAT (PYXIS) 30 ML UDC GT SCH ×2 (08:53→21:54)
[2018-06-29] MEDS: POLYVINYL ALCOHOL 15 ML BOTTLE OP SCH ×4 (08:53→21:54)
[2018-06-29] MEDS: SIMETHICONE SUSP 40 MG/0.6 ML BOTTLE GT SCH ×2 (08:53→21:53)
[2018-06-29] MEDS: Z GUARD REMEDY 4 OZ OINT TP SCH ×4 (09:00→21:54)
[2018-06-29] MEDS: HYDROGEN PEROXIDE 480 ML BOTTLE TP SCH ×2 (09:00→21:54)
[2018-06-29 20:35] VITALS: BP 129/76
[2018-06-29] MEDS: LANOLIN/MIN OIL/PETROLAT,WHT 3.5 GM TUBE EACHEYE SCH (21:54)
[2018-06-29] MEDS: MULTIVIT W/MINERALS 1 TAB TABLET GT SCH (21:54)
[2018-06-30] MEDS: IPRATROPIUM NEB FS 0.5 MG/2.5 ML AMPUL.NEB NEB SCH ×4 (01:02→20:12)
[2018-06-30] MEDS: TWOCAL HN 1,000 ML LIQUID GT PRN (02:30)
[2018-06-30] MEDS: BACLOFEN (10 MG) 10 MG TABLET GT SCH ×2 (05:45→17:38)
[2018-06-30] MEDS: OMEPRAZOLE 20 MG CAPSULE.DR GT SCH (05:45)
[2018-06-30 07:27] VITALS: BP 97/61
[2018-06-30] MEDS: POLYVINYL ALCOHOL 15 ML BOTTLE OP SCH ×4 (09:00→20:47)
[2018-06-30] MEDS: CARVEDILOL 3.125 MG TABLET GT SCH ×2 (09:00→20:47)
[2018-06-30] MEDS: ACIDOPHILUS/BULGARICUS 1 EACH TAB.CHEW GT SCH ×2 (09:00→17:37)
[2018-06-30] MEDS: Z GUARD REMEDY 4 OZ OINT TP SCH ×4 (09:00→20:47)
[2018-06-30] MEDS: SIMETHICONE SUSP 40 MG/0.6 ML BOTTLE GT SCH ×2 (09:00→20:47)
[2018-06-30] MEDS: HYDROGEN PEROXIDE 480 ML BOTTLE TP SCH ×2 (09:00→20:47)
[2018-06-30] MEDS: PROSTAT (PYXIS) 30 ML UDC GT SCH ×2 (09:00→20:47)
[2018-06-30] MEDS: FERROUS SULFATE - FOR SA ONLY 330 MG/7.5 ML UDC GT SCH ×2 (09:00→17:37)
[2018-06-30] MEDS: MIDODRINE HCL (5MG) 5 MG TABLET GT SCH ×2 (09:00→20:47)
[2018-06-30 20:36] VITALS: BP 120/88
[2018-06-30] MEDS: MULTIVIT W/MINERALS 1 TAB TABLET GT SCH (20:47)
[2018-06-30] MEDS: LANOLIN/MIN OIL/PETROLAT,WHT 3.5 GM TUBE EACHEYE SCH (21:08)
[2018-07-01] MEDS: IPRATROPIUM NEB FS 0.5 MG/2.5 ML AMPUL.NEB NEB SCH ×4 (02:15→19:52)
[2018-07-01] MEDS: BACLOFEN (10 MG) 10 MG TABLET GT SCH ×2 (05:33→17:15)
[2018-07-01] MEDS: TWOCAL HN 1,000 ML LIQUID GT PRN (05:33)
[2018-07-01] MEDS: OMEPRAZOLE 20 MG CAPSULE.DR GT SCH (05:33)
[2018-07-01 07:21] VITALS: BP 106/68
[2018-07-01] MEDS: Z GUARD REMEDY 4 OZ OINT TP SCH ×4 (09:00→20:24)
[2018-07-01] MEDS: HYDROGEN PEROXIDE 480 ML BOTTLE TP SCH ×2 (09:00→20:24)
[2018-07-01] MEDS: FERROUS SULFATE - FOR SA ONLY 330 MG/7.5 ML UDC GT SCH ×2 (09:11→17:15)
[2018-07-01] MEDS: MIDODRINE HCL (5MG) 5 MG TABLET GT SCH ×2 (09:11→20:23)
[2018-07-01] MEDS: POLYVINYL ALCOHOL 15 ML BOTTLE OP SCH ×4 (09:11→20:24)
[2018-07-01] MEDS: CARVEDILOL 3.125 MG TABLET GT SCH ×2 (09:11→20:23)
[2018-07-01] MEDS: PROSTAT (PYXIS) 30 ML UDC GT SCH ×2 (09:11→20:23)
[2018-07-01] MEDS: ACIDOPHILUS/BULGARICUS 1 EACH TAB.CHEW GT SCH ×2 (09:11→17:15)
[2018-07-01] MEDS: SIMETHICONE SUSP 40 MG/0.6 ML BOTTLE GT SCH ×2 (09:11→20:23)
[2018-07-01 19:41] VITALS: BP 119/75
[2018-07-01] MEDS: MULTIVIT W/MINERALS 1 TAB TABLET GT SCH (20:23)
[2018-07-01] MEDS: LANOLIN/MIN OIL/PETROLAT,WHT 3.5 GM TUBE EACHEYE SCH (21:22)
[2018-07-02] MEDS: IPRATROPIUM NEB FS 0.5 MG/2.5 ML AMPUL.NEB NEB SCH ×4 (01:48→19:45)
[2018-07-02] MEDS: BACLOFEN (10 MG) 10 MG TABLET GT SCH ×2 (05:43→17:09)
[2018-07-02] MEDS: OMEPRAZOLE 20 MG CAPSULE.DR GT SCH (05:43)
[2018-07-02 07:52] VITALS: BP 92/49
[2018-07-02] MEDS: FERROUS SULFATE - FOR SA ONLY 330 MG/7.5 ML UDC GT SCH ×2 (08:00→17:09)
[2018-07-02] MEDS: CARVEDILOL 3.125 MG TABLET GT SCH ×2 (08:00→20:56)
[2018-07-02] MEDS: ACETAMINOPHEN 650 MG/20 ML UDC- SA PATIENTS-PAIN ONLY GT PRN (08:02)
[2018-07-02] MEDS: SIMETHICONE SUSP 40 MG/0.6 ML BOTTLE GT SCH ×2 (08:02→20:56)
[2018-07-02] MEDS: PROSTAT (PYXIS) 30 ML UDC GT SCH ×2 (08:02→20:57)
[2018-07-02] MEDS: ACIDOPHILUS/BULGARICUS 1 EACH TAB.CHEW GT SCH ×2 (08:02→17:09)
[2018-07-02] MEDS: POLYVINYL ALCOHOL 15 ML BOTTLE OP SCH ×4 (08:02→20:57)
[2018-07-02] MEDS: MIDODRINE HCL (5MG) 5 MG TABLET GT SCH ×2 (08:02→20:56)
[2018-07-02] MEDS: Z GUARD REMEDY 4 OZ OINT TP SCH ×4 (09:00→20:57)
[2018-07-02] MEDS: HYDROGEN PEROXIDE 480 ML BOTTLE TP SCH ×2 (09:00→20:57)
[2018-07-02] MEDS: TWOCAL HN 1,000 ML LIQUID GT PRN (11:33)
[2018-07-02 20:07] VITALS: BP 124/88
[2018-07-02] MEDS: MULTIVIT W/MINERALS 1 TAB TABLET GT SCH (20:57)
[2018-07-02] MEDS: LANOLIN/MIN OIL/PETROLAT,WHT 3.5 GM TUBE EACHEYE SCH (21:32)
[2018-07-03] MEDS: IPRATROPIUM NEB FS 0.5 MG/2.5 ML AMPUL.NEB NEB SCH ×4 (01:04→19:35)
[2018-07-03] MEDS: OMEPRAZOLE 20 MG CAPSULE.DR GT SCH (05:33)
[2018-07-03] MEDS: BACLOFEN (10 MG) 10 MG TABLET GT SCH ×2 (05:33→17:50)
[2018-07-03 07:25] VITALS: BP 102/68
[2018-07-03] MEDS: HYDROGEN PEROXIDE 480 ML BOTTLE TP SCH ×2 (09:00→20:24)
[2018-07-03] MEDS: POLYVINYL ALCOHOL 15 ML BOTTLE OP SCH ×4 (09:00→20:23)
[2018-07-03] MEDS: PROSTAT (PYXIS) 30 ML UDC GT SCH ×2 (09:00→20:21)
[2018-07-03] MEDS: CARVEDILOL 3.125 MG TABLET GT SCH ×2 (09:00→20:21)
[2018-07-03] MEDS: ACIDOPHILUS/BULGARICUS 1 EACH TAB.CHEW GT SCH ×2 (09:00→17:48)
[2018-07-03] MEDS: Z GUARD REMEDY 4 OZ OINT TP SCH ×4 (09:00→20:24)
[2018-07-03] MEDS: SIMETHICONE SUSP 40 MG/0.6 ML BOTTLE GT SCH ×2 (09:00→20:19)
[2018-07-03] MEDS: FERROUS SULFATE - FOR SA ONLY 330 MG/7.5 ML UDC GT SCH ×2 (09:00→17:48)
[2018-07-03] MEDS: MIDODRINE HCL (5MG) 5 MG TABLET GT SCH ×2 (09:00→20:17)
[2018-07-03] MEDS: TWOCAL HN 1,000 ML LIQUID GT PRN ×2 (14:19→14:22)
[2018-07-03 19:44] VITALS: BP 125/66
[2018-07-03] MEDS: MULTIVIT W/MINERALS 1 TAB TABLET GT SCH (20:24)
[2018-07-03] MEDS: LANOLIN/MIN OIL/PETROLAT,WHT 3.5 GM TUBE EACHEYE SCH (21:27)
[2018-07-04] MEDS: IPRATROPIUM NEB FS 0.5 MG/2.5 ML AMPUL.NEB NEB SCH ×4 (00:36→20:06)
[2018-07-04] MEDS: OMEPRAZOLE 20 MG CAPSULE.DR GT SCH (05:38)
[2018-07-04] MEDS: BACLOFEN (10 MG) 10 MG TABLET GT SCH ×2 (05:38→17:08)
[2018-07-04 07:42] VITALS: BP 100/60
[2018-07-04] MEDS: Z GUARD REMEDY 4 OZ OINT TP SCH ×4 (09:00→20:58)
[2018-07-04] MEDS: HYDROGEN PEROXIDE 480 ML BOTTLE TP SCH ×2 (09:00→20:58)
[2018-07-04] MEDS: FERROUS SULFATE - FOR SA ONLY 330 MG/7.5 ML UDC GT SCH ×2 (09:49→17:08)
[2018-07-04] MEDS: ACIDOPHILUS/BULGARICUS 1 EACH TAB.CHEW GT SCH ×2 (09:49→17:08)
[2018-07-04] MEDS: CARVEDILOL 3.125 MG TABLET GT SCH ×2 (09:49→20:57)
[2018-07-04] MEDS: SIMETHICONE SUSP 40 MG/0.6 ML BOTTLE GT SCH ×2 (09:49→20:57)
[2018-07-04] MEDS: MIDODRINE HCL (5MG) 5 MG TABLET GT SCH ×2 (09:50→20:57)
[2018-07-04] MEDS: PROSTAT (PYXIS) 30 ML UDC GT SCH ×2 (09:50→20:57)
[2018-07-04] MEDS: POLYVINYL ALCOHOL 15 ML BOTTLE OP SCH ×4 (09:50→20:58)
[2018-07-04] MEDS: TWOCAL HN 1,000 ML LIQUID GT PRN (18:09)
[2018-07-04 19:34] VITALS: BP 103/61
[2018-07-04] MEDS: LANOLIN/MIN OIL/PETROLAT,WHT 3.5 GM TUBE EACHEYE SCH (21:01)
[2018-07-04] MEDS: MULTIVIT W/MINERALS 1 TAB TABLET GT SCH (21:01)
[2018-07-05] MEDS: IPRATROPIUM NEB FS 0.5 MG/2.5 ML AMPUL.NEB NEB SCH ×4 (01:21→20:40)
[2018-07-05] MEDS: OMEPRAZOLE 20 MG CAPSULE.DR GT SCH (05:32)
[2018-07-05] MEDS: BACLOFEN (10 MG) 10 MG TABLET GT SCH ×2 (05:32→17:27)
[2018-07-05 07:47] VITALS: BP 101/51
[2018-07-05] MEDS: HYDROGEN PEROXIDE 480 ML BOTTLE TP SCH ×2 (09:00→20:48)
[2018-07-05] MEDS: Z GUARD REMEDY 4 OZ OINT TP SCH ×4 (09:00→20:48)
[2018-07-05] MEDS: CARVEDILOL 3.125 MG TABLET GT SCH ×2 (09:31→20:47)
[2018-07-05] MEDS: POLYVINYL ALCOHOL 15 ML BOTTLE OP SCH ×4 (09:31→20:48)
[2018-07-05] MEDS: ACIDOPHILUS/BULGARICUS 1 EACH TAB.CHEW GT SCH ×2 (09:31→17:27)
[2018-07-05] MEDS: MIDODRINE HCL (5MG) 5 MG TABLET GT SCH ×2 (09:31→20:47)
[2018-07-05] MEDS: FERROUS SULFATE - FOR SA ONLY 330 MG/7.5 ML UDC GT SCH ×2 (09:31→17:27)
[2018-07-05] MEDS: SIMETHICONE SUSP 40 MG/0.6 ML BOTTLE GT SCH ×2 (09:31→20:47)
[2018-07-05] MEDS: PROSTAT (PYXIS) 30 ML UDC GT SCH ×2 (09:31→20:47)
[2018-07-05] MEDS: TWOCAL HN 1,000 ML LIQUID GT PRN (19:07)
[2018-07-05 19:45] VITALS: BP 130/77
[2018-07-05] MEDS: MULTIVIT W/MINERALS 1 TAB TABLET GT SCH (20:48)
[2018-07-05] MEDS: LANOLIN/MIN OIL/PETROLAT,WHT 3.5 GM TUBE EACHEYE SCH (21:50)
[2018-07-06] MEDS: IPRATROPIUM NEB FS 0.5 MG/2.5 ML AMPUL.NEB NEB SCH ×4 (01:28→20:13)
[2018-07-06] MEDS: OMEPRAZOLE 20 MG CAPSULE.DR GT SCH (05:45)
[2018-07-06] MEDS: BACLOFEN (10 MG) 10 MG TABLET GT SCH ×2 (05:45→17:23)
[2018-07-06 07:57] VITALS: BP 101/75
[2018-07-06] MEDS: PROSTAT (PYXIS) 30 ML UDC GT SCH ×2 (09:44→21:18)
[2018-07-06] MEDS: SIMETHICONE SUSP 40 MG/0.6 ML BOTTLE GT SCH ×2 (09:44→21:17)
[2018-07-06] MEDS: MIDODRINE HCL (5MG) 5 MG TABLET GT SCH ×2 (09:44→21:18)
[2018-07-06] MEDS: ACIDOPHILUS/BULGARICUS 1 EACH TAB.CHEW GT SCH ×2 (09:44→17:23)
[2018-07-06] MEDS: CARVEDILOL 3.125 MG TABLET GT SCH ×2 (09:44→21:17)
[2018-07-06] MEDS: POLYVINYL ALCOHOL 15 ML BOTTLE OP SCH ×4 (09:44→21:18)
[2018-07-06] MEDS: HYDROGEN PEROXIDE 480 ML BOTTLE TP SCH ×2 (09:44→21:18)
[2018-07-06] MEDS: FERROUS SULFATE - FOR SA ONLY 330 MG/7.5 ML UDC GT SCH ×2 (09:44→17:23)
[2018-07-06] MEDS: Z GUARD REMEDY 4 OZ OINT TP SCH ×4 (09:45→21:18)
[2018-07-06] MEDS: TWOCAL HN 1,000 ML LIQUID GT PRN (17:24)
[2018-07-06 20:03] VITALS: BP 104/68
[2018-07-06] MEDS: MULTIVIT W/MINERALS 1 TAB TABLET GT SCH (21:18)
[2018-07-06] MEDS: LANOLIN/MIN OIL/PETROLAT,WHT 3.5 GM TUBE EACHEYE SCH (21:18)
[2018-07-07] MEDS: IPRATROPIUM NEB FS 0.5 MG/2.5 ML AMPUL.NEB NEB SCH ×4 (01:07→20:01)
[2018-07-07] MEDS: OMEPRAZOLE 20 MG CAPSULE.DR GT SCH (06:54)
[2018-07-07] MEDS: BACLOFEN (10 MG) 10 MG TABLET GT SCH ×2 (06:54→17:06)
[2018-07-07 07:34] VITALS: BP 86/41
[2018-07-07] MEDS: FERROUS SULFATE - FOR SA ONLY 330 MG/7.5 ML UDC GT SCH ×2 (08:31→16:38)
[2018-07-07] MEDS: MIDODRINE HCL (5MG) 5 MG TABLET GT SCH ×2 (08:31→20:27)
[2018-07-07] MEDS: ACIDOPHILUS/BULGARICUS 1 EACH TAB.CHEW GT SCH ×2 (08:31→16:38)
[2018-07-07] MEDS: HYDROGEN PEROXIDE 480 ML BOTTLE TP SCH ×2 (08:31→20:28)
[2018-07-07] MEDS: SIMETHICONE SUSP 40 MG/0.6 ML BOTTLE GT SCH ×2 (08:31→20:27)
[2018-07-07] MEDS: PROSTAT (PYXIS) 30 ML UDC GT SCH ×2 (08:31→20:28)
[2018-07-07] MEDS: POLYVINYL ALCOHOL 15 ML BOTTLE OP SCH ×4 (08:31→20:28)
[2018-07-07] MEDS: Z GUARD REMEDY 4 OZ OINT TP SCH ×4 (08:31→20:28)
[2018-07-07] MEDS: CARVEDILOL 3.125 MG TABLET GT SCH ×2 (08:32→20:27)
[2018-07-07] MEDS: MULTIVIT W/MINERALS 1 TAB TABLET GT SCH (20:28)
[2018-07-07 20:38] VITALS: BP 122/73
[2018-07-07] MEDS: LANOLIN/MIN OIL/PETROLAT,WHT 3.5 GM TUBE EACHEYE SCH (21:36)
[2018-07-08] MEDS: IPRATROPIUM NEB FS 0.5 MG/2.5 ML AMPUL.NEB NEB SCH ×4 (01:58→20:09)
[2018-07-08] MEDS: OMEPRAZOLE 20 MG CAPSULE.DR GT SCH (05:15)
[2018-07-08] MEDS: TWOCAL HN 1,000 ML LIQUID GT PRN (05:15)
[2018-07-08] MEDS: BACLOFEN (10 MG) 10 MG TABLET GT SCH ×2 (05:15→17:34)
[2018-07-08 07:59] VITALS: BP 105/57
[2018-07-08] MEDS: ACIDOPHILUS/BULGARICUS 1 EACH TAB.CHEW GT SCH ×2 (09:50→16:05)
[2018-07-08] MEDS: Z GUARD REMEDY 4 OZ OINT TP SCH ×4 (09:50→21:19)
[2018-07-08] MEDS: PROSTAT (PYXIS) 30 ML UDC GT SCH ×2 (09:50→21:19)
[2018-07-08] MEDS: FERROUS SULFATE - FOR SA ONLY 330 MG/7.5 ML UDC GT SCH ×2 (09:50→16:05)
[2018-07-08] MEDS: SIMETHICONE SUSP 40 MG/0.6 ML BOTTLE GT SCH ×2 (09:50→21:18)
[2018-07-08] MEDS: MIDODRINE HCL (5MG) 5 MG TABLET GT SCH ×2 (09:50→21:19)
[2018-07-08] MEDS: CARVEDILOL 3.125 MG TABLET GT SCH ×2 (09:50→21:18)
[2018-07-08] MEDS: HYDROGEN PEROXIDE 480 ML BOTTLE TP SCH ×2 (09:50→21:19)
[2018-07-08] MEDS: POLYVINYL ALCOHOL 15 ML BOTTLE OP SCH ×4 (09:50→21:19)
[2018-07-08 19:48] VITALS: BP 106/70
[2018-07-08] MEDS: LANOLIN/MIN OIL/PETROLAT,WHT 3.5 GM TUBE EACHEYE SCH (21:19)
[2018-07-08] MEDS: MULTIVIT W/MINERALS 1 TAB TABLET GT SCH (21:19)
[2018-07-09] MEDS: IPRATROPIUM NEB FS 0.5 MG/2.5 ML AMPUL.NEB NEB SCH ×4 (01:49→19:57)
[2018-07-09] MEDS: BACLOFEN (10 MG) 10 MG TABLET GT SCH ×2 (05:13→18:01)
[2018-07-09] MEDS: TWOCAL HN 1,000 ML LIQUID GT PRN (05:13)
[2018-07-09] MEDS: OMEPRAZOLE 20 MG CAPSULE.DR GT SCH (05:13)
[2018-07-09 08:06] VITALS: BP_SYST 105; BP_SYST 108; BP_DIAS 55; BP_DIAS 64
[2018-07-09] MEDS: HYDROGEN PEROXIDE 480 ML BOTTLE TP SCH ×2 (09:00→20:48)
[2018-07-09] MEDS: Z GUARD REMEDY 4 OZ OINT TP SCH ×6 (09:00→20:48)
[2018-07-09] MEDS: MIDODRINE HCL (5MG) 5 MG TABLET GT SCH ×2 (09:00→20:47)
[2018-07-09] MEDS: CARVEDILOL 3.125 MG TABLET GT SCH ×2 (09:00→20:47)
[2018-07-09] MEDS: FERROUS SULFATE - FOR SA ONLY 330 MG/7.5 ML UDC GT SCH ×2 (09:19→17:00)
[2018-07-09] MEDS: ACIDOPHILUS/BULGARICUS 1 EACH TAB.CHEW GT SCH ×2 (09:20→17:00)
[2018-07-09] MEDS: SIMETHICONE SUSP 40 MG/0.6 ML BOTTLE GT SCH ×2 (09:20→20:47)
[2018-07-09] MEDS: POLYVINYL ALCOHOL 15 ML BOTTLE OP SCH ×4 (09:21→20:48)
[2018-07-09] MEDS: PROSTAT (PYXIS) 30 ML UDC GT SCH ×2 (09:21→20:47)
[2018-07-09 19:46] VITALS: BP 105/71
[2018-07-09] MEDS: MULTIVIT W/MINERALS 1 TAB TABLET GT SCH (20:47)
[2018-07-09] MEDS: LANOLIN/MIN OIL/PETROLAT,WHT 3.5 GM TUBE EACHEYE SCH (21:21)
[2018-07-10] MEDS: IPRATROPIUM NEB FS 0.5 MG/2.5 ML AMPUL.NEB NEB SCH ×4 (01:24→19:10)
[2018-07-10] MEDS: BACLOFEN (10 MG) 10 MG TABLET GT SCH ×2 (06:34→18:36)
[2018-07-10] MEDS: OMEPRAZOLE 20 MG CAPSULE.DR GT SCH (06:34)
[2018-07-10] MEDS: TWOCAL HN 1,000 ML LIQUID GT PRN (06:34)
[2018-07-10 07:31] VITALS: BP 96/46
[2018-07-10] MEDS: Z GUARD REMEDY 4 OZ OINT TP SCH ×6 (09:00→21:11)
[2018-07-10] MEDS: HYDROGEN PEROXIDE 480 ML BOTTLE TP SCH ×2 (09:00→21:12)
[2018-07-10] MEDS: ACIDOPHILUS/BULGARICUS 1 EACH TAB.CHEW GT SCH ×2 (09:42→17:37)
[2018-07-10] MEDS: FERROUS SULFATE - FOR SA ONLY 330 MG/7.5 ML UDC GT SCH ×2 (09:42→17:37)
[2018-07-10] MEDS: POLYVINYL ALCOHOL 15 ML BOTTLE OP SCH ×4 (09:44→21:12)
[2018-07-10] MEDS: SIMETHICONE SUSP 40 MG/0.6 ML BOTTLE GT SCH ×2 (09:44→21:12)
[2018-07-10] MEDS: PROSTAT (PYXIS) 30 ML UDC GT SCH ×2 (09:44→21:12)
[2018-07-10] MEDS: MIDODRINE HCL (5MG) 5 MG TABLET GT SCH ×2 (09:51→21:00)
[2018-07-10] MEDS: CARVEDILOL 3.125 MG TABLET GT SCH ×2 (10:00→21:12)
[2018-07-10] MEDS: LORAZEPAM 0.5 MG TABLET GT PRN (12:26)
[2018-07-10] MEDS: LORAZEPAM INJ 2 MG/ML VIAL IVP PRN (17:22)
[2018-07-10] MEDS: ACETAMINOPHEN 650 MG/20 ML UDC- SA PATIENTS-PAIN ONLY GT PRN ×2 (17:30→19:24)
[2018-07-10 20:03] VITALS: BP 128/76
[2018-07-10] MEDS: LANOLIN/MIN OIL/PETROLAT,WHT 3.5 GM TUBE EACHEYE SCH (21:11)
[2018-07-10] MEDS: MULTIVIT W/MINERALS 1 TAB TABLET GT SCH (21:12)
[2018-07-11] MEDS: IPRATROPIUM NEB FS 0.5 MG/2.5 ML AMPUL.NEB NEB SCH ×4 (00:39→20:06)
[2018-07-11] MEDS: OMEPRAZOLE 20 MG CAPSULE.DR GT SCH (05:27)
[2018-07-11] MEDS: BACLOFEN (10 MG) 10 MG TABLET GT SCH ×2 (05:27→18:11)
[2018-07-11 07:35] VITALS: BP 103/69
[2018-07-11] MEDS: POLYVINYL ALCOHOL 15 ML BOTTLE OP SCH ×4 (09:00→21:08)
[2018-07-11] MEDS: Z GUARD REMEDY 4 OZ OINT TP SCH ×4 (09:00→21:08)
[2018-07-11] MEDS: SIMETHICONE SUSP 40 MG/0.6 ML BOTTLE GT SCH ×2 (09:00→21:06)
[2018-07-11] MEDS: HYDROGEN PEROXIDE 480 ML BOTTLE TP SCH ×2 (09:00→21:08)
[2018-07-11] MEDS: FERROUS SULFATE - FOR SA ONLY 330 MG/7.5 ML UDC GT SCH ×2 (09:00→17:00)
[2018-07-11] MEDS: CARVEDILOL 3.125 MG TABLET GT SCH ×2 (09:00→21:06)
[2018-07-11] MEDS: MIDODRINE HCL (5MG) 5 MG TABLET GT SCH ×2 (09:00→21:07)
[2018-07-11] MEDS: PROSTAT (PYXIS) 30 ML UDC GT SCH ×2 (09:00→21:07)
[2018-07-11] MEDS: ACIDOPHILUS/BULGARICUS 1 EACH TAB.CHEW GT SCH ×2 (09:00→17:00)
[2018-07-11] MEDS: TWOCAL HN 1,000 ML LIQUID GT PRN (18:11)
[2018-07-11 19:57] VITALS: BP 115/72
[2018-07-11 20:12] LABS: OCCULT BLOOD STOOL NEGATIVE (NEGATIVE)
[2018-07-11] MEDS: MULTIVIT W/MINERALS 1 TAB TABLET GT SCH (21:07)
[2018-07-11] MEDS: LANOLIN/MIN OIL/PETROLAT,WHT 3.5 GM TUBE EACHEYE SCH (21:09)
[2018-07-12] MEDS: IPRATROPIUM NEB FS 0.5 MG/2.5 ML AMPUL.NEB NEB SCH ×4 (01:56→18:55)
[2018-07-12] MEDS: OMEPRAZOLE 20 MG CAPSULE.DR GT SCH (05:20)
[2018-07-12] MEDS: BACLOFEN (10 MG) 10 MG TABLET GT SCH ×2 (05:20→17:00)
[2018-07-12 07:10] LABS: BASOPHILS % (AUTO) 0.3 % (0.0-2.0); EOSINOPHILS % (AUTO) 5.5 % (0.0-6.0); HEMATOCRIT 32 % (33-45); HEMOGLOBIN 10.2 g/dL (11.5-14.8); LYMPHOCYTES # (AUTO) 2.3 /CMM (0.8-4.8); LYMPHOCYTES % (AUTO) 44.8 % (20.0-44.0); MEAN CORPUSCULAR HGB CONC 32 g/dl (31.0-36.0); MEAN CORPUSCULAR VOLUME 84 fL (82-100); MONOCYTES # (AUTO) 0.5 /CMM (0.1-1.30); MONOCYTES % (AUTO) 10.5 % (2.0-12.0); NEUTROPHILS % (AUTO) 38.9 % (43.0-81.0); PLATELET COUNT (AUTO) 149 /CMM (150-450); RED BLOOD CELL COUNT(AUTO) 3.85 MIL/uL (4.0-5.2); WHITE BLOOD COUNT (AUTO) 5.2 K/uL (4.3-11.0)
[2018-07-12 07:23] LABS: CREATININE 0.5 mg/dL (0.6-1.3); MAGNESIUM 2.2 mg/dL (1.8-2.4); PHOSPHORUS 3.5 mg/dL (2.5-4.9); POTASSIUM 3.6 mmol/L (3.5-5.1)
[2018-07-12 07:35] VITALS: BP 128/78
[2018-07-12] MEDS: MIDODRINE HCL (5MG) 5 MG TABLET GT SCH ×2 (09:00→20:42)
[2018-07-12] MEDS: CARVEDILOL 3.125 MG TABLET GT SCH ×2 (09:27→20:40)
[2018-07-12] MEDS: ACIDOPHILUS/BULGARICUS 1 EACH TAB.CHEW GT SCH ×2 (09:27→17:00)
[2018-07-12] MEDS: SIMETHICONE SUSP 40 MG/0.6 ML BOTTLE GT SCH ×2 (09:27→20:40)
[2018-07-12] MEDS: FERROUS SULFATE - FOR SA ONLY 330 MG/7.5 ML UDC GT SCH ×2 (09:27→17:00)
[2018-07-12] MEDS: HYDROGEN PEROXIDE 480 ML BOTTLE TP SCH ×2 (09:28→21:30)
[2018-07-12] MEDS: POLYVINYL ALCOHOL 15 ML BOTTLE OP SCH ×4 (09:28→20:45)
[2018-07-12] MEDS: Z GUARD REMEDY 4 OZ OINT TP SCH ×4 (09:28→21:30)
[2018-07-12] MEDS: PROSTAT (PYXIS) 30 ML UDC GT SCH ×2 (09:28→20:42)
[2018-07-12 18:21] LABS: APPEARANCE,URINE SL CLOUDY (CLEAR); BILIRUBIN,URINE NEGATIVE (NEGATIVE); BLOOD, URINE 2+ Ery/uL (NEGATIVE); COLOR,URINE YELLOW (YELLOW); KETONES,URINE NEGATIVE (NEGATIVE); LEUKOCYTE ESTERASE ,URINE 1+ (NEGATIVE); NITRITE, URINE NEGATIVE (NEGATIVE); PH,URINE 7.5 (5.0-8.0); PROTEIN,URINE TRACE mg/dl (NEGATIVE); UGLUCOSE NEGATIVE (NEGATIVE); UROBILINOGEN,URINE 0.2 EU/dL (0.2)
[2018-07-12 18:27] LABS: BACTERIA,URINE Moderate /HPF (None Seen)
[2018-07-12 18:28] LABS: SQUAMOUS EPITHELIAL CELL,UR Many /HPF (None Seen)
[2018-07-12 18:31] LABS: OCCULT BLOOD STOOL NEGATIVE (NEGATIVE)
[2018-07-12 19:34] VITALS: BP 114/84
[2018-07-12] MEDS: MULTIVIT W/MINERALS 1 TAB TABLET GT SCH (20:45)
[2018-07-12] MEDS: LANOLIN/MIN OIL/PETROLAT,WHT 3.5 GM TUBE EACHEYE SCH (21:30)
[2018-07-13] MEDS: IPRATROPIUM NEB FS 0.5 MG/2.5 ML AMPUL.NEB NEB SCH ×4 (01:27→20:29)
[2018-07-13] MEDS: OMEPRAZOLE 20 MG CAPSULE.DR GT SCH (05:04)
[2018-07-13] MEDS: BACLOFEN (10 MG) 10 MG TABLET GT SCH ×2 (05:04→17:26)
[2018-07-13 07:39] VITALS: BP 129/87
[2018-07-13] MEDS: ACIDOPHILUS/BULGARICUS 1 EACH TAB.CHEW GT SCH ×2 (08:31→17:26)
[2018-07-13] MEDS: SIMETHICONE SUSP 40 MG/0.6 ML BOTTLE GT SCH ×2 (08:31→20:51)
[2018-07-13] MEDS: PROSTAT (PYXIS) 30 ML UDC GT SCH ×2 (08:31→20:52)
[2018-07-13] MEDS: FERROUS SULFATE - FOR SA ONLY 330 MG/7.5 ML UDC GT SCH ×2 (08:31→17:26)
[2018-07-13] MEDS: POLYVINYL ALCOHOL 15 ML BOTTLE OP SCH ×4 (08:31→20:52)
[2018-07-13] MEDS: Z GUARD REMEDY 4 OZ OINT TP SCH ×4 (08:31→20:52)
[2018-07-13] MEDS: HYDROGEN PEROXIDE 480 ML BOTTLE TP SCH ×2 (08:31→20:52)
[2018-07-13] MEDS: MIDODRINE HCL (5MG) 5 MG TABLET GT SCH ×2 (08:32→20:51)
[2018-07-13] MEDS: CARVEDILOL 3.125 MG TABLET GT SCH ×2 (08:38→20:51)
[2018-07-13 18:33] LABS: OCCULT BLOOD STOOL NEGATIVE (NEGATIVE)
[2018-07-13 20:07] VITALS: BP 129/81
[2018-07-13] MEDS: MULTIVIT W/MINERALS 1 TAB TABLET GT SCH (20:52)
[2018-07-13] MEDS: LANOLIN/MIN OIL/PETROLAT,WHT 3.5 GM TUBE EACHEYE SCH (22:00)
[2018-07-14] MEDS: IPRATROPIUM NEB FS 0.5 MG/2.5 ML AMPUL.NEB NEB SCH ×4 (01:28→19:18)
[2018-07-14] MEDS: OMEPRAZOLE 20 MG CAPSULE.DR GT SCH (05:22)
[2018-07-14] MEDS: BACLOFEN (10 MG) 10 MG TABLET GT SCH ×2 (05:22→17:47)
[2018-07-14] MEDS: TWOCAL HN 1,000 ML LIQUID GT PRN (05:59)
[2018-07-14 08:11] VITALS: BP 116/55
[2018-07-14] MEDS: FERROUS SULFATE - FOR SA ONLY 330 MG/7.5 ML UDC GT SCH ×2 (09:36→17:46)
[2018-07-14] MEDS: PROSTAT (PYXIS) 30 ML UDC GT SCH ×2 (09:36→21:28)
[2018-07-14] MEDS: Z GUARD REMEDY 4 OZ OINT TP SCH ×4 (09:36→21:28)
[2018-07-14] MEDS: HYDROGEN PEROXIDE 480 ML BOTTLE TP SCH ×2 (09:36→21:28)
[2018-07-14] MEDS: CARVEDILOL 3.125 MG TABLET GT SCH ×2 (09:36→21:27)
[2018-07-14] MEDS: MIDODRINE HCL (5MG) 5 MG TABLET GT SCH ×2 (09:36→21:00)
[2018-07-14] MEDS: SIMETHICONE SUSP 40 MG/0.6 ML BOTTLE GT SCH ×2 (09:36→21:28)
[2018-07-14] MEDS: POLYVINYL ALCOHOL 15 ML BOTTLE OP SCH ×4 (09:36→21:28)
[2018-07-14] MEDS: ACIDOPHILUS/BULGARICUS 1 EACH TAB.CHEW GT SCH ×2 (09:36→17:47)
[2018-07-14 20:21] VITALS: BP 123/74
[2018-07-14] MEDS: LANOLIN/MIN OIL/PETROLAT,WHT 3.5 GM TUBE EACHEYE SCH (21:28)
[2018-07-14] MEDS: CEPHALEXIN MONOHYDRATE 500 MG CAPSULE PO SCH (21:28)
[2018-07-14] MEDS: MULTIVIT W/MINERALS 1 TAB TABLET GT SCH (21:28)
[2018-07-15] MEDS: IPRATROPIUM NEB FS 0.5 MG/2.5 ML AMPUL.NEB NEB SCH ×4 (02:09→20:02)
[2018-07-15] MEDS: TWOCAL HN 1,000 ML LIQUID GT PRN (05:38)
[2018-07-15] MEDS: BACLOFEN (10 MG) 10 MG TABLET GT SCH ×2 (05:38→17:29)
[2018-07-15] MEDS: CEPHALEXIN MONOHYDRATE 500 MG CAPSULE PO SCH ×3 (05:38→21:01)
[2018-07-15] MEDS: OMEPRAZOLE 20 MG CAPSULE.DR GT SCH (05:38)
[2018-07-15 07:58] VITALS: BP 136/90
[2018-07-15] MEDS: MIDODRINE HCL (5MG) 5 MG TABLET GT SCH ×2 (09:00→21:01)
[2018-07-15] MEDS: SIMETHICONE SUSP 40 MG/0.6 ML BOTTLE GT SCH ×2 (09:56→21:00)
[2018-07-15] MEDS: CARVEDILOL 3.125 MG TABLET GT SCH ×2 (09:56→21:00)
[2018-07-15] MEDS: FERROUS SULFATE - FOR SA ONLY 330 MG/7.5 ML UDC GT SCH ×2 (09:56→17:29)
[2018-07-15] MEDS: ACIDOPHILUS/BULGARICUS 1 EACH TAB.CHEW GT SCH ×2 (09:56→17:29)
[2018-07-15] MEDS: POLYVINYL ALCOHOL 15 ML BOTTLE OP SCH ×4 (09:57→21:01)
[2018-07-15] MEDS: Z GUARD REMEDY 4 OZ OINT TP SCH ×4 (09:57→21:01)
[2018-07-15] MEDS: PROSTAT (PYXIS) 30 ML UDC GT SCH ×2 (09:57→21:01)
[2018-07-15] MEDS: HYDROGEN PEROXIDE 480 ML BOTTLE TP SCH ×2 (09:57→21:01)
[2018-07-15 20:05] VITALS: BP 97/62
[2018-07-15] MEDS: MULTIVIT W/MINERALS 1 TAB TABLET GT SCH (21:01)
[2018-07-15] MEDS: LANOLIN/MIN OIL/PETROLAT,WHT 3.5 GM TUBE EACHEYE SCH (21:01)
[2018-07-16] MEDS: IPRATROPIUM NEB FS 0.5 MG/2.5 ML AMPUL.NEB NEB SCH ×4 (01:34→19:22)
[2018-07-16] MEDS: CEPHALEXIN MONOHYDRATE 500 MG CAPSULE PO SCH ×3 (05:27→21:00)
[2018-07-16] MEDS: BACLOFEN (10 MG) 10 MG TABLET GT SCH ×2 (05:27→17:04)
[2018-07-16] MEDS: OMEPRAZOLE 20 MG CAPSULE.DR GT SCH (05:27)
[2018-07-16] MEDS: TWOCAL HN 1,000 ML LIQUID GT PRN (06:07)
[2018-07-16 08:00] VITALS: BP 139/99
[2018-07-16] MEDS: MIDODRINE HCL (5MG) 5 MG TABLET GT SCH ×2 (09:00→21:00)
[2018-07-16] MEDS: POLYVINYL ALCOHOL 15 ML BOTTLE OP SCH ×4 (09:28→21:00)
[2018-07-16] MEDS: ACIDOPHILUS/BULGARICUS 1 EACH TAB.CHEW GT SCH ×2 (09:28→17:04)
[2018-07-16] MEDS: PROSTAT (PYXIS) 30 ML UDC GT SCH ×2 (09:28→21:00)
[2018-07-16] MEDS: HYDROGEN PEROXIDE 480 ML BOTTLE TP SCH ×2 (09:28→21:00)
[2018-07-16] MEDS: CARVEDILOL 3.125 MG TABLET GT SCH ×2 (09:28→21:00)
[2018-07-16] MEDS: FERROUS SULFATE - FOR SA ONLY 330 MG/7.5 ML UDC GT SCH ×2 (09:28→17:04)
[2018-07-16] MEDS: SIMETHICONE SUSP 40 MG/0.6 ML BOTTLE GT SCH ×2 (09:28→21:00)
[2018-07-16] MEDS: Z GUARD REMEDY 4 OZ OINT TP SCH ×4 (09:29→21:00)
[2018-07-16] MEDS ORDERED: DIATR MEGLU/DIATRIZOATE SODIUM 30 ML BOTTLE (GASTROGRAPHIN) PO ONE (10:14)
[2018-07-16 20:41] VITALS: BP 93/50
[2018-07-16] MEDS: MULTIVIT W/MINERALS 1 TAB TABLET GT SCH (21:00)
[2018-07-16] MEDS: LANOLIN/MIN OIL/PETROLAT,WHT 3.5 GM TUBE EACHEYE SCH (22:05)
[2018-07-16 22:30] VITALS: BP 109/73
[2018-07-17] MEDS: IPRATROPIUM NEB FS 0.5 MG/2.5 ML AMPUL.NEB NEB SCH ×4 (01:58→19:05)
[2018-07-17] MEDS: TWOCAL HN 1,000 ML LIQUID GT PRN (04:30)
[2018-07-17] MEDS: BACLOFEN (10 MG) 10 MG TABLET GT SCH ×2 (05:22→17:04)
[2018-07-17] MEDS: CEPHALEXIN MONOHYDRATE 500 MG CAPSULE PO SCH ×3 (05:22→20:51)
[2018-07-17] MEDS: OMEPRAZOLE 20 MG CAPSULE.DR GT SCH (05:22)
[2018-07-17 07:24] VITALS: BP 105/59
[2018-07-17] MEDS: CARVEDILOL 3.125 MG TABLET GT SCH ×2 (09:24→20:47)
[2018-07-17] MEDS: FERROUS SULFATE - FOR SA ONLY 330 MG/7.5 ML UDC GT SCH ×2 (09:24→17:04)
[2018-07-17] MEDS: SIMETHICONE SUSP 40 MG/0.6 ML BOTTLE GT SCH ×2 (09:25→20:49)
[2018-07-17] MEDS: Z GUARD REMEDY 4 OZ OINT TP SCH ×4 (09:25→20:52)
[2018-07-17] MEDS: ACIDOPHILUS/BULGARICUS 1 EACH TAB.CHEW GT SCH ×2 (09:25→17:04)
[2018-07-17] MEDS: PROSTAT (PYXIS) 30 ML UDC GT SCH ×2 (09:25→20:50)
[2018-07-17] MEDS: POLYVINYL ALCOHOL 15 ML BOTTLE OP SCH ×4 (09:25→20:51)
[2018-07-17] MEDS: HYDROGEN PEROXIDE 480 ML BOTTLE TP SCH ×2 (09:25→20:52)
[2018-07-17] MEDS: MIDODRINE HCL (5MG) 5 MG TABLET GT SCH ×2 (09:25→20:50)
[2018-07-17 20:15] VITALS: BP 99/69
[2018-07-17] MEDS: MULTIVIT W/MINERALS 1 TAB TABLET GT SCH (20:51)
[2018-07-17] MEDS: LANOLIN/MIN OIL/PETROLAT,WHT 3.5 GM TUBE EACHEYE SCH (21:32)
[2018-07-18] MEDS: IPRATROPIUM NEB FS 0.5 MG/2.5 ML AMPUL.NEB NEB SCH ×4 (01:31→19:38)
[2018-07-18] MEDS: BACLOFEN (10 MG) 10 MG TABLET GT SCH ×2 (05:40→17:58)
[2018-07-18] MEDS: OMEPRAZOLE 20 MG CAPSULE.DR GT SCH (05:40)
[2018-07-18] MEDS: CEPHALEXIN MONOHYDRATE 500 MG CAPSULE PO SCH ×3 (05:40→20:55)
[2018-07-18 08:00] VITALS: BP 131/97
[2018-07-18] MEDS: PROSTAT (PYXIS) 30 ML UDC GT SCH ×2 (09:00→20:55)
[2018-07-18] MEDS: FERROUS SULFATE - FOR SA ONLY 330 MG/7.5 ML UDC GT SCH ×2 (09:00→17:58)
[2018-07-18] MEDS: POLYVINYL ALCOHOL 15 ML BOTTLE OP SCH ×4 (09:00→20:55)
[2018-07-18] MEDS: Z GUARD REMEDY 4 OZ OINT TP SCH ×4 (09:00→20:55)
[2018-07-18] MEDS: ACIDOPHILUS/BULGARICUS 1 EACH TAB.CHEW GT SCH ×2 (09:00→17:58)
[2018-07-18] MEDS: HYDROGEN PEROXIDE 480 ML BOTTLE TP SCH ×2 (09:00→20:55)
[2018-07-18] MEDS: MIDODRINE HCL (5MG) 5 MG TABLET GT SCH ×2 (09:00→20:54)
[2018-07-18] MEDS: SIMETHICONE SUSP 40 MG/0.6 ML BOTTLE GT SCH ×2 (09:00→20:54)
[2018-07-18] MEDS: CARVEDILOL 3.125 MG TABLET GT SCH ×2 (09:00→20:53)
[2018-07-18] MEDS: TWOCAL HN 1,000 ML LIQUID GT PRN (15:48)
[2018-07-18 19:52] VITALS: BP 116/74
[2018-07-18] MEDS: MULTIVIT W/MINERALS 1 TAB TABLET GT SCH (20:55)
[2018-07-18] MEDS: LANOLIN/MIN OIL/PETROLAT,WHT 3.5 GM TUBE EACHEYE SCH (21:35)
[2018-07-19] MEDS: IPRATROPIUM NEB FS 0.5 MG/2.5 ML AMPUL.NEB NEB SCH ×4 (01:44→19:39)
[2018-07-19] MEDS: CEPHALEXIN MONOHYDRATE 500 MG CAPSULE PO SCH ×3 (05:37→20:55)
[2018-07-19] MEDS: BACLOFEN (10 MG) 10 MG TABLET GT SCH ×2 (05:38→17:13)
[2018-07-19] MEDS: OMEPRAZOLE 20 MG CAPSULE.DR GT SCH (05:38)
[2018-07-19 07:57] VITALS: BP 121/79
[2018-07-19] MEDS: FERROUS SULFATE - FOR SA ONLY 330 MG/7.5 ML UDC GT SCH ×2 (09:17→17:13)
[2018-07-19] MEDS: POLYVINYL ALCOHOL 15 ML BOTTLE OP SCH ×4 (09:18→20:53)
[2018-07-19] MEDS: SIMETHICONE SUSP 40 MG/0.6 ML BOTTLE GT SCH ×2 (09:18→20:50)
[2018-07-19] MEDS: HYDROGEN PEROXIDE 480 ML BOTTLE TP SCH ×2 (09:18→20:55)
[2018-07-19] MEDS: Z GUARD REMEDY 4 OZ OINT TP SCH ×4 (09:18→20:55)
[2018-07-19] MEDS: CARVEDILOL 3.125 MG TABLET GT SCH ×2 (09:18→20:49)
[2018-07-19] MEDS: MIDODRINE HCL (5MG) 5 MG TABLET GT SCH ×2 (09:18→20:51)
[2018-07-19] MEDS: PROSTAT (PYXIS) 30 ML UDC GT SCH ×2 (09:18→20:52)
[2018-07-19] MEDS: ACIDOPHILUS/BULGARICUS 1 EACH TAB.CHEW GT SCH ×2 (09:18→17:13)
[2018-07-19 20:06] VITALS: BP 148/88
[2018-07-19] MEDS: MULTIVIT W/MINERALS 1 TAB TABLET GT SCH (20:52)
[2018-07-19] MEDS: LANOLIN/MIN OIL/PETROLAT,WHT 3.5 GM TUBE EACHEYE SCH (21:42)
[2018-07-20] MEDS: IPRATROPIUM NEB FS 0.5 MG/2.5 ML AMPUL.NEB NEB SCH ×4 (01:20→20:04)
[2018-07-20] MEDS: BACLOFEN (10 MG) 10 MG TABLET GT SCH ×2 (05:46→17:10)
[2018-07-20] MEDS: OMEPRAZOLE 20 MG CAPSULE.DR GT SCH (05:46)
[2018-07-20] MEDS: Z GUARD REMEDY 4 OZ OINT TP SCH ×4 (09:00→20:48)
[2018-07-20] MEDS: HYDROGEN PEROXIDE 480 ML BOTTLE TP SCH ×2 (09:00→20:48)
[2018-07-20] MEDS: MIDODRINE HCL (5MG) 5 MG TABLET GT SCH ×2 (09:00→20:47)
[2018-07-20] MEDS: FERROUS SULFATE - FOR SA ONLY 330 MG/7.5 ML UDC GT SCH ×2 (09:43→17:10)
[2018-07-20] MEDS: SIMETHICONE SUSP 40 MG/0.6 ML BOTTLE GT SCH ×2 (09:43→20:47)
[2018-07-20] MEDS: CARVEDILOL 3.125 MG TABLET GT SCH ×2 (09:43→20:46)
[2018-07-20] MEDS: ACIDOPHILUS/BULGARICUS 1 EACH TAB.CHEW GT SCH ×2 (09:43→17:10)
[2018-07-20] MEDS: PROSTAT (PYXIS) 30 ML UDC GT SCH ×2 (09:44→20:47)
[2018-07-20] MEDS: POLYVINYL ALCOHOL 15 ML BOTTLE OP SCH ×4 (09:45→20:48)
[2018-07-20 11:54] VITALS: BP 134/89
[2018-07-20 20:23] VITALS: BP 106/69
[2018-07-20] MEDS: MULTIVIT W/MINERALS 1 TAB TABLET GT SCH (20:48)
[2018-07-20] MEDS: LANOLIN/MIN OIL/PETROLAT,WHT 3.5 GM TUBE EACHEYE SCH (21:29)
[2018-07-21] MEDS: IPRATROPIUM NEB FS 0.5 MG/2.5 ML AMPUL.NEB NEB SCH ×4 (01:28→19:29)
[2018-07-21] MEDS: TWOCAL HN 1,000 ML LIQUID GT PRN (03:55)
[2018-07-21] MEDS: OMEPRAZOLE 20 MG CAPSULE.DR GT SCH (05:25)
[2018-07-21] MEDS: BACLOFEN (10 MG) 10 MG TABLET GT SCH (05:25)
[2018-07-21 07:39] VITALS: BP 126/57
[2018-07-21] MEDS: MIDODRINE HCL (5MG) 5 MG TABLET GT SCH ×2 (09:00→21:15)
[2018-07-21] MEDS: SIMETHICONE SUSP 40 MG/0.6 ML BOTTLE GT SCH ×2 (09:00→21:15)
[2018-07-21] MEDS: FERROUS SULFATE - FOR SA ONLY 330 MG/7.5 ML UDC GT SCH ×2 (09:00→16:42)
[2018-07-21] MEDS: POLYVINYL ALCOHOL 15 ML BOTTLE OP SCH ×4 (09:00→21:15)
[2018-07-21] MEDS: ACIDOPHILUS/BULGARICUS 1 EACH TAB.CHEW GT SCH ×2 (09:00→16:42)
[2018-07-21] MEDS: Z GUARD REMEDY 4 OZ OINT TP SCH ×4 (09:00→21:15)
[2018-07-21] MEDS: CARVEDILOL 3.125 MG TABLET GT SCH ×2 (09:00→21:15)
[2018-07-21] MEDS: HYDROGEN PEROXIDE 480 ML BOTTLE TP SCH ×2 (09:00→21:15)
[2018-07-21] MEDS: PROSTAT (PYXIS) 30 ML UDC GT SCH ×2 (09:00→21:15)
[2018-07-21 19:41] VITALS: BP 107/69
[2018-07-21 19:42] VITALS: BP 140/77
[2018-07-21] MEDS: MULTIVIT W/MINERALS 1 TAB TABLET GT SCH (21:50)
[2018-07-21] MEDS: LANOLIN/MIN OIL/PETROLAT,WHT 3.5 GM TUBE EACHEYE SCH (22:46)
[2018-07-22] MEDS: IPRATROPIUM NEB FS 0.5 MG/2.5 ML AMPUL.NEB NEB SCH ×4 (02:09→19:53)
[2018-07-22] MEDS: OMEPRAZOLE 20 MG CAPSULE.DR GT SCH (05:53)
[2018-07-22] MEDS: BACLOFEN (10 MG) 10 MG TABLET GT SCH ×2 (05:53→17:36)
[2018-07-22] MEDS: TWOCAL HN 1,000 ML LIQUID GT PRN (06:42)
[2018-07-22 07:39] VITALS: BP 124/77
[2018-07-22] MEDS: Z GUARD REMEDY 4 OZ OINT TP SCH ×4 (09:55→21:35)
[2018-07-22] MEDS: PROSTAT (PYXIS) 30 ML UDC GT SCH ×2 (09:55→21:34)
[2018-07-22] MEDS: FERROUS SULFATE - FOR SA ONLY 330 MG/7.5 ML UDC GT SCH ×2 (09:55→17:36)
[2018-07-22] MEDS: POLYVINYL ALCOHOL 15 ML BOTTLE OP SCH ×4 (09:55→21:34)
[2018-07-22] MEDS: CARVEDILOL 3.125 MG TABLET GT SCH ×2 (09:55→21:34)
[2018-07-22] MEDS: HYDROGEN PEROXIDE 480 ML BOTTLE TP SCH ×2 (09:55→21:35)
[2018-07-22] MEDS: ACIDOPHILUS/BULGARICUS 1 EACH TAB.CHEW GT SCH ×2 (09:55→17:36)
[2018-07-22] MEDS: MIDODRINE HCL (5MG) 5 MG TABLET GT SCH ×2 (09:55→21:00)
[2018-07-22] MEDS: SIMETHICONE SUSP 40 MG/0.6 ML BOTTLE GT SCH ×2 (09:55→21:34)
[2018-07-22 19:55] VITALS: BP 120/60
[2018-07-22] MEDS: MULTIVIT W/MINERALS 1 TAB TABLET GT SCH (21:34)
[2018-07-22] MEDS: LANOLIN/MIN OIL/PETROLAT,WHT 3.5 GM TUBE EACHEYE SCH (21:35)
[2018-07-23] MEDS: IPRATROPIUM NEB FS 0.5 MG/2.5 ML AMPUL.NEB NEB SCH ×4 (01:12→19:33)
[2018-07-23] MEDS: BACLOFEN (10 MG) 10 MG TABLET GT SCH ×2 (06:13→17:36)
[2018-07-23] MEDS: OMEPRAZOLE 20 MG CAPSULE.DR GT SCH (06:13)
[2018-07-23] MEDS: TWOCAL HN 1,000 ML LIQUID GT PRN (06:21)
[2018-07-23 07:26] VITALS: BP 101/54
[2018-07-23] MEDS: SIMETHICONE SUSP 40 MG/0.6 ML BOTTLE GT SCH ×2 (09:00→21:27)
[2018-07-23] MEDS: CARVEDILOL 3.125 MG TABLET GT SCH ×2 (09:00→21:27)
[2018-07-23] MEDS: POLYVINYL ALCOHOL 15 ML BOTTLE OP SCH ×4 (09:00→21:28)
[2018-07-23] MEDS: Z GUARD REMEDY 4 OZ OINT TP SCH ×2 (09:00→21:28)
[2018-07-23] MEDS: ACIDOPHILUS/BULGARICUS 1 EACH TAB.CHEW GT SCH ×2 (09:00→17:36)
[2018-07-23] MEDS: PROSTAT (PYXIS) 30 ML UDC GT SCH ×2 (09:00→21:28)
[2018-07-23] MEDS: MIDODRINE HCL (5MG) 5 MG TABLET GT SCH ×2 (09:00→21:28)
[2018-07-23] MEDS: FERROUS SULFATE - FOR SA ONLY 330 MG/7.5 ML UDC GT SCH ×2 (09:00→17:36)
[2018-07-23] MEDS: HYDROGEN PEROXIDE 480 ML BOTTLE TP SCH ×2 (09:00→21:28)
[2018-07-23] MEDS: LANOLIN/MIN OIL/PETROLAT,WHT 3.5 GM TUBE EACHEYE SCH (21:28)
[2018-07-23] MEDS: MULTIVIT W/MINERALS 1 TAB TABLET GT SCH (21:28)
[2018-07-23 22:15] VITALS: BP 115/82
[2018-07-24] MEDS: IPRATROPIUM NEB FS 0.5 MG/2.5 ML AMPUL.NEB NEB SCH ×4 (01:49→19:52)
[2018-07-24] MEDS: BACLOFEN (10 MG) 10 MG TABLET GT SCH ×2 (05:43→17:39)
[2018-07-24] MEDS: OMEPRAZOLE 20 MG CAPSULE.DR GT SCH (05:43)
[2018-07-24 07:42] VITALS: BP 112/70
[2018-07-24] MEDS: CARVEDILOL 3.125 MG TABLET GT SCH ×2 (09:42→20:29)
[2018-07-24] MEDS: MIDODRINE HCL (5MG) 5 MG TABLET GT SCH ×2 (09:43→20:30)
[2018-07-24] MEDS: SIMETHICONE SUSP 40 MG/0.6 ML BOTTLE GT SCH ×2 (09:43→20:30)
[2018-07-24] MEDS: POLYVINYL ALCOHOL 15 ML BOTTLE OP SCH ×4 (09:43→20:32)
[2018-07-24] MEDS: HYDROGEN PEROXIDE 480 ML BOTTLE TP SCH ×2 (09:43→20:32)
[2018-07-24] MEDS: PROSTAT (PYXIS) 30 ML UDC GT SCH ×2 (09:43→20:31)
[2018-07-24] MEDS: Z GUARD REMEDY 4 OZ OINT TP SCH ×2 (09:43→20:32)
[2018-07-24] MEDS: FERROUS SULFATE - FOR SA ONLY 330 MG/7.5 ML UDC GT SCH ×2 (09:43→17:39)
[2018-07-24] MEDS: ACIDOPHILUS/BULGARICUS 1 EACH TAB.CHEW GT SCH ×2 (09:43→17:39)
[2018-07-24] MEDS: TWOCAL HN 1,000 ML LIQUID GT PRN (17:49)
[2018-07-24 20:14] VITALS: BP 114/71
[2018-07-24] MEDS: MULTIVIT W/MINERALS 1 TAB TABLET GT SCH (20:31)
[2018-07-24] MEDS: LANOLIN/MIN OIL/PETROLAT,WHT 3.5 GM TUBE EACHEYE SCH (22:30)
[2018-07-25] MEDS: IPRATROPIUM NEB FS 0.5 MG/2.5 ML AMPUL.NEB NEB SCH ×4 (01:09→19:31)
[2018-07-25] MEDS: OMEPRAZOLE 20 MG CAPSULE.DR GT SCH (05:21)
[2018-07-25] MEDS: BACLOFEN (10 MG) 10 MG TABLET GT SCH ×2 (05:21→17:26)
[2018-07-25] MEDS: FERROUS SULFATE - FOR SA ONLY 330 MG/7.5 ML UDC GT SCH ×2 (09:23→17:26)
[2018-07-25] MEDS: SIMETHICONE SUSP 40 MG/0.6 ML BOTTLE GT SCH ×2 (09:23→20:36)
[2018-07-25] MEDS: MIDODRINE HCL (5MG) 5 MG TABLET GT SCH ×2 (09:23→20:36)
[2018-07-25] MEDS: ACIDOPHILUS/BULGARICUS 1 EACH TAB.CHEW GT SCH ×2 (09:23→17:26)
[2018-07-25] MEDS: CARVEDILOL 3.125 MG TABLET GT SCH ×2 (09:23→20:36)
[2018-07-25] MEDS: PROSTAT (PYXIS) 30 ML UDC GT SCH ×2 (09:23→20:38)
[2018-07-25] MEDS: POLYVINYL ALCOHOL 15 ML BOTTLE OP SCH ×4 (09:24→20:39)
[2018-07-25] MEDS: HYDROGEN PEROXIDE 480 ML BOTTLE TP SCH ×2 (09:24→20:42)
[2018-07-25] MEDS: Z GUARD REMEDY 4 OZ OINT TP SCH ×2 (09:24→20:42)
[2018-07-25 09:34] VITALS: BP 115/67
[2018-07-25] MEDS: TWOCAL HN 1,000 ML LIQUID GT PRN (17:54)
[2018-07-25 20:09] VITALS: BP 113/71
[2018-07-25] MEDS: MULTIVIT W/MINERALS 1 TAB TABLET GT SCH (20:39)
[2018-07-25] MEDS: LANOLIN/MIN OIL/PETROLAT,WHT 3.5 GM TUBE EACHEYE SCH (21:59)
[2018-07-26] MEDS: IPRATROPIUM NEB FS 0.5 MG/2.5 ML AMPUL.NEB NEB SCH ×4 (01:57→19:53)
[2018-07-26] MEDS: BACLOFEN (10 MG) 10 MG TABLET GT SCH ×2 (05:28→17:10)
[2018-07-26] MEDS: OMEPRAZOLE 20 MG CAPSULE.DR GT SCH (05:28)
[2018-07-26] MEDS: ACIDOPHILUS/BULGARICUS 1 EACH TAB.CHEW GT SCH ×2 (09:49→17:10)
[2018-07-26] MEDS: CARVEDILOL 3.125 MG TABLET GT SCH ×2 (09:49→20:25)
[2018-07-26] MEDS: SIMETHICONE SUSP 40 MG/0.6 ML BOTTLE GT SCH ×2 (09:49→20:27)
[2018-07-26] MEDS: FERROUS SULFATE - FOR SA ONLY 330 MG/7.5 ML UDC GT SCH ×2 (09:49→17:10)
[2018-07-26] MEDS: PROSTAT (PYXIS) 30 ML UDC GT SCH ×2 (09:50→20:27)
[2018-07-26] MEDS: MIDODRINE HCL (5MG) 5 MG TABLET GT SCH ×2 (09:50→20:27)
[2018-07-26] MEDS: POLYVINYL ALCOHOL 15 ML BOTTLE OP SCH ×4 (09:50→20:28)
[2018-07-26] MEDS: HYDROGEN PEROXIDE 480 ML BOTTLE TP SCH ×2 (09:50→20:28)
[2018-07-26] MEDS: Z GUARD REMEDY 4 OZ OINT TP SCH ×2 (09:50→20:29)
[2018-07-26 10:45] VITALS: BP 104/58
[2018-07-26] MEDS: TWOCAL HN 1,000 ML LIQUID GT PRN (17:26)
[2018-07-26 20:18] VITALS: BP_SYST 132; BP_SYST 90; BP_DIAS 41; BP_DIAS 71
[2018-07-26] MEDS: MULTIVIT W/MINERALS 1 TAB TABLET GT SCH (20:28)
[2018-07-26] MEDS: LANOLIN/MIN OIL/PETROLAT,WHT 3.5 GM TUBE EACHEYE SCH (21:52)
[2018-07-27] MEDS: IPRATROPIUM NEB FS 0.5 MG/2.5 ML AMPUL.NEB NEB SCH ×4 (01:36→19:27)
[2018-07-27] MEDS: OMEPRAZOLE 20 MG CAPSULE.DR GT SCH (06:04)
[2018-07-27] MEDS: BACLOFEN (10 MG) 10 MG TABLET GT SCH ×2 (06:04→17:45)
[2018-07-27 07:51] VITALS: BP 96/60
[2018-07-27] MEDS: Z GUARD REMEDY 4 OZ OINT TP SCH ×2 (09:00→21:41)
[2018-07-27] MEDS: ACIDOPHILUS/BULGARICUS 1 EACH TAB.CHEW GT SCH ×2 (09:00→17:45)
[2018-07-27] MEDS: HYDROGEN PEROXIDE 480 ML BOTTLE TP SCH ×2 (09:00→21:41)
[2018-07-27] MEDS: PROSTAT (PYXIS) 30 ML UDC GT SCH ×2 (09:00→21:41)
[2018-07-27] MEDS: CARVEDILOL 3.125 MG TABLET GT SCH ×2 (09:00→21:40)
[2018-07-27] MEDS: POLYVINYL ALCOHOL 15 ML BOTTLE OP SCH ×3 (09:00→21:41)
[2018-07-27] MEDS: SIMETHICONE SUSP 40 MG/0.6 ML BOTTLE GT SCH ×2 (09:00→21:40)
[2018-07-27] MEDS: FERROUS SULFATE - FOR SA ONLY 330 MG/7.5 ML UDC GT SCH ×2 (09:00→17:45)
[2018-07-27] MEDS: MIDODRINE HCL (5MG) 5 MG TABLET GT SCH ×2 (09:00→21:41)
[2018-07-27 20:00] VITALS: BP 116/75
[2018-07-27] MEDS: LANOLIN/MIN OIL/PETROLAT,WHT 3.5 GM TUBE EACHEYE SCH (21:41)
[2018-07-27] MEDS: MULTIVIT W/MINERALS 1 TAB TABLET GT SCH (21:41)
[2018-07-28] MEDS: IPRATROPIUM NEB FS 0.5 MG/2.5 ML AMPUL.NEB NEB SCH ×4 (01:56→20:20)
[2018-07-28] MEDS: BACLOFEN (10 MG) 10 MG TABLET GT SCH ×2 (05:53→17:55)
[2018-07-28] MEDS: OMEPRAZOLE 20 MG CAPSULE.DR GT SCH (05:53)
[2018-07-28] MEDS: TWOCAL HN 1,000 ML LIQUID GT PRN (06:30)
[2018-07-28 07:50] VITALS: BP 102/62
[2018-07-28] MEDS: CARVEDILOL 3.125 MG TABLET GT SCH ×2 (09:35→20:47)
[2018-07-28] MEDS: SIMETHICONE SUSP 40 MG/0.6 ML BOTTLE GT SCH ×2 (09:36→20:47)
[2018-07-28] MEDS: FERROUS SULFATE - FOR SA ONLY 330 MG/7.5 ML UDC GT SCH ×2 (09:36→17:55)
[2018-07-28] MEDS: MIDODRINE HCL (5MG) 5 MG TABLET GT SCH ×2 (09:36→20:47)
[2018-07-28] MEDS: POLYVINYL ALCOHOL 15 ML BOTTLE OP SCH ×4 (09:36→20:47)
[2018-07-28] MEDS: PROSTAT (PYXIS) 30 ML UDC GT SCH ×2 (09:36→20:47)
[2018-07-28] MEDS: HYDROGEN PEROXIDE 480 ML BOTTLE TP SCH ×2 (09:36→20:47)
[2018-07-28] MEDS: Z GUARD REMEDY 4 OZ OINT TP SCH ×2 (09:36→20:47)
[2018-07-28] MEDS: ACIDOPHILUS/BULGARICUS 1 EACH TAB.CHEW GT SCH ×2 (09:36→17:55)
[2018-07-28 19:29] VITALS: BP 102/72
[2018-07-28] MEDS: MULTIVIT W/MINERALS 1 TAB TABLET GT SCH (20:47)
[2018-07-28] MEDS: LANOLIN/MIN OIL/PETROLAT,WHT 3.5 GM TUBE EACHEYE SCH (21:32)
[2018-07-29] MEDS: IPRATROPIUM NEB FS 0.5 MG/2.5 ML AMPUL.NEB NEB SCH ×4 (01:45→19:38)
[2018-07-29] MEDS: BACLOFEN (10 MG) 10 MG TABLET GT SCH ×2 (05:44→18:12)
[2018-07-29] MEDS: OMEPRAZOLE 20 MG CAPSULE.DR GT SCH (05:44)
[2018-07-29 07:53] VITALS: BP 112/68
[2018-07-29] MEDS: CARVEDILOL 3.125 MG TABLET GT SCH ×2 (09:58→21:21)
[2018-07-29] MEDS: MIDODRINE HCL (5MG) 5 MG TABLET GT SCH ×2 (09:58→21:21)
[2018-07-29] MEDS: PROSTAT (PYXIS) 30 ML UDC GT SCH ×2 (09:58→21:23)
[2018-07-29] MEDS: SIMETHICONE SUSP 40 MG/0.6 ML BOTTLE GT SCH ×2 (09:58→21:26)
[2018-07-29] MEDS: FERROUS SULFATE - FOR SA ONLY 330 MG/7.5 ML UDC GT SCH ×2 (09:58→17:00)
[2018-07-29] MEDS: ACIDOPHILUS/BULGARICUS 1 EACH TAB.CHEW GT SCH ×2 (09:58→17:00)
[2018-07-29] MEDS: NYSTATIN TOP POWDER 15 GM BOTTLE TP SCH ×2 (09:59→21:23)
[2018-07-29] MEDS: HYDROGEN PEROXIDE 480 ML BOTTLE TP SCH ×2 (09:59→21:23)
[2018-07-29] MEDS: Z GUARD REMEDY 4 OZ OINT TP SCH ×2 (09:59→21:23)
[2018-07-29] MEDS: POLYVINYL ALCOHOL 15 ML BOTTLE OP SCH ×4 (09:59→21:23)
[2018-07-29] MEDS: TWOCAL HN 1,000 ML LIQUID GT PRN (10:46)
[2018-07-29 19:49] VITALS: BP 133/67
[2018-07-29] MEDS: LANOLIN/MIN OIL/PETROLAT,WHT 3.5 GM TUBE EACHEYE SCH (21:23)
[2018-07-29] MEDS: MULTIVIT W/MINERALS 1 TAB TABLET GT SCH (21:26)
[2018-07-30] MEDS: LORAZEPAM INJ 2 MG/ML VIAL IVP PRN (01:39)
[2018-07-30] MEDS: IPRATROPIUM NEB FS 0.5 MG/2.5 ML AMPUL.NEB NEB SCH ×4 (01:50→19:52)
[2018-07-30] MEDS: OMEPRAZOLE 20 MG CAPSULE.DR GT SCH (05:35)
[2018-07-30] MEDS: BACLOFEN (10 MG) 10 MG TABLET GT SCH ×2 (05:35→17:26)
[2018-07-30 08:00] VITALS: BP 108/61
[2018-07-30] MEDS: PROSTAT (PYXIS) 30 ML UDC GT SCH ×2 (09:00→21:41)
[2018-07-30] MEDS: NYSTATIN TOP POWDER 15 GM BOTTLE TP SCH ×2 (09:00→21:41)
[2018-07-30] MEDS: ACIDOPHILUS/BULGARICUS 1 EACH TAB.CHEW GT SCH ×2 (09:00→17:26)
[2018-07-30] MEDS: MIDODRINE HCL (5MG) 5 MG TABLET GT SCH ×2 (09:00→21:40)
[2018-07-30] MEDS: HYDROGEN PEROXIDE 480 ML BOTTLE TP SCH ×2 (09:00→21:41)
[2018-07-30] MEDS: CARVEDILOL 3.125 MG TABLET GT SCH ×2 (09:00→21:00)
[2018-07-30] MEDS: POLYVINYL ALCOHOL 15 ML BOTTLE OP SCH ×4 (09:00→21:41)
[2018-07-30] MEDS: SIMETHICONE SUSP 40 MG/0.6 ML BOTTLE GT SCH ×2 (09:00→21:40)
[2018-07-30] MEDS: Z GUARD REMEDY 4 OZ OINT TP SCH ×2 (09:00→21:41)
[2018-07-30] MEDS: FERROUS SULFATE - FOR SA ONLY 330 MG/7.5 ML UDC GT SCH ×2 (09:00→17:26)
[2018-07-30 20:00] VITALS: BP 91/44
[2018-07-30] MEDS: LANOLIN/MIN OIL/PETROLAT,WHT 3.5 GM TUBE EACHEYE SCH (21:41)
[2018-07-30] MEDS: MULTIVIT W/MINERALS 1 TAB TABLET GT SCH (21:42)
[2018-07-31] MEDS: TWOCAL HN 1,000 ML LIQUID GT PRN (00:16)
[2018-07-31] MEDS: IPRATROPIUM NEB FS 0.5 MG/2.5 ML AMPUL.NEB NEB SCH ×4 (01:36→19:48)
[2018-07-31 04:42] VITALS: BP 104/74
[2018-07-31] MEDS: BACLOFEN (10 MG) 10 MG TABLET GT SCH ×2 (05:44→17:06)
[2018-07-31] MEDS: OMEPRAZOLE 20 MG CAPSULE.DR GT SCH (05:45)
[2018-07-31 07:32] VITALS: BP 96/45
[2018-07-31] MEDS: ACIDOPHILUS/BULGARICUS 1 EACH TAB.CHEW GT SCH ×2 (09:05→17:06)
[2018-07-31] MEDS: CARVEDILOL 3.125 MG TABLET GT SCH ×2 (09:05→21:37)
[2018-07-31] MEDS: FERROUS SULFATE - FOR SA ONLY 330 MG/7.5 ML UDC GT SCH ×2 (09:05→17:06)
[2018-07-31] MEDS: SIMETHICONE SUSP 40 MG/0.6 ML BOTTLE GT SCH ×2 (09:05→21:37)
[2018-07-31] MEDS: PROSTAT (PYXIS) 30 ML UDC GT SCH ×2 (09:06→21:37)
[2018-07-31] MEDS: MIDODRINE HCL (5MG) 5 MG TABLET GT SCH ×2 (09:06→21:37)
[2018-07-31] MEDS: NYSTATIN TOP POWDER 15 GM BOTTLE TP SCH ×2 (09:06→21:38)
[2018-07-31] MEDS: HYDROGEN PEROXIDE 480 ML BOTTLE TP SCH ×2 (09:06→21:38)
[2018-07-31] MEDS: Z GUARD REMEDY 4 OZ OINT TP SCH ×2 (09:06→21:38)
[2018-07-31] MEDS: POLYVINYL ALCOHOL 15 ML BOTTLE OP SCH ×4 (09:06→21:38)
[2018-07-31 20:20] VITALS: BP 106/63
[2018-07-31] MEDS: MULTIVIT W/MINERALS 1 TAB TABLET GT SCH (21:37)
[2018-07-31] MEDS: LANOLIN/MIN OIL/PETROLAT,WHT 3.5 GM TUBE EACHEYE SCH (21:38)
[2018-08-01] MEDS: IPRATROPIUM NEB FS 0.5 MG/2.5 ML AMPUL.NEB NEB SCH ×4 (01:41→20:10)
[2018-08-01] MEDS: OMEPRAZOLE 20 MG CAPSULE.DR GT SCH (05:46)
[2018-08-01] MEDS: BACLOFEN (10 MG) 10 MG TABLET GT SCH ×2 (05:46→18:05)
[2018-08-01 08:05] VITALS: BP 96/49
[2018-08-01] MEDS: NYSTATIN TOP POWDER 15 GM BOTTLE TP SCH ×2 (09:00→21:00)
[2018-08-01] MEDS: Z GUARD REMEDY 4 OZ OINT TP SCH ×2 (09:00→21:00)
[2018-08-01] MEDS: CARVEDILOL 3.125 MG TABLET GT SCH ×2 (09:00→21:00)
[2018-08-01] MEDS: SIMETHICONE SUSP 40 MG/0.6 ML BOTTLE GT SCH ×2 (09:00→21:00)
[2018-08-01] MEDS: POLYVINYL ALCOHOL 15 ML BOTTLE OP SCH ×4 (09:00→21:00)
[2018-08-01] MEDS: HYDROGEN PEROXIDE 480 ML BOTTLE TP SCH ×2 (09:00→21:00)
[2018-08-01] MEDS: ACIDOPHILUS/BULGARICUS 1 EACH TAB.CHEW GT SCH ×2 (09:00→17:00)
[2018-08-01] MEDS: PROSTAT (PYXIS) 30 ML UDC GT SCH ×2 (09:00→21:00)
[2018-08-01] MEDS: MIDODRINE HCL (5MG) 5 MG TABLET GT SCH ×2 (09:00→21:00)
[2018-08-01] MEDS: FERROUS SULFATE - FOR SA ONLY 330 MG/7.5 ML UDC GT SCH ×2 (09:00→17:00)
[2018-08-01] MEDS: ACETAMINOPHEN 650 MG/20 ML UDC- SA PATIENTS-PAIN ONLY GT PRN ×2 (11:18→18:04)
[2018-08-01] MEDS: LORAZEPAM INJ 2 MG/ML VIAL IVP PRN (19:03)
[2018-08-01 20:01] VITALS: BP 140/67
[2018-08-01] MEDS: MULTIVIT W/MINERALS 1 TAB TABLET GT SCH (21:00)
[2018-08-01] MEDS: LANOLIN/MIN OIL/PETROLAT,WHT 3.5 GM TUBE EACHEYE SCH (22:15)
[2018-08-02] MEDS: IPRATROPIUM NEB FS 0.5 MG/2.5 ML AMPUL.NEB NEB SCH ×4 (01:59→20:20)
[2018-08-02] MEDS: LORAZEPAM INJ 2 MG/ML VIAL IVP PRN (02:00)
[2018-08-02] MEDS: OMEPRAZOLE 20 MG CAPSULE.DR GT SCH (05:44)
[2018-08-02] MEDS: BACLOFEN (10 MG) 10 MG TABLET GT SCH ×2 (05:44→17:04)
[2018-08-02 07:57] VITALS: BP 161/83
[2018-08-02 09:00] VITALS: BP 129/74
[2018-08-02] MEDS: CARVEDILOL 3.125 MG TABLET GT SCH ×2 (09:00→21:00)
[2018-08-02] MEDS: POLYVINYL ALCOHOL 15 ML BOTTLE OP SCH ×4 (09:00→21:00)
[2018-08-02] MEDS: MIDODRINE HCL (5MG) 5 MG TABLET GT SCH ×2 (09:00→21:00)
[2018-08-02] MEDS: HYDROGEN PEROXIDE 480 ML BOTTLE TP SCH ×2 (09:00→21:29)
[2018-08-02] MEDS: NYSTATIN TOP POWDER 15 GM BOTTLE TP SCH ×2 (09:00→21:29)
[2018-08-02] MEDS: Z GUARD REMEDY 4 OZ OINT TP SCH ×2 (09:00→21:29)
[2018-08-02] MEDS: SIMETHICONE SUSP 40 MG/0.6 ML BOTTLE GT SCH ×2 (09:00→21:00)
[2018-08-02] MEDS: ACIDOPHILUS/BULGARICUS 1 EACH TAB.CHEW GT SCH ×2 (09:00→17:04)
[2018-08-02] MEDS: PROSTAT (PYXIS) 30 ML UDC GT SCH ×2 (09:00→21:00)
[2018-08-02] MEDS: FERROUS SULFATE - FOR SA ONLY 330 MG/7.5 ML UDC GT SCH ×2 (09:00→17:04)
[2018-08-02 12:00] VITALS: BP 112/71
[2018-08-02] MEDS: MULTIVIT W/MINERALS 1 TAB TABLET GT SCH (21:00)
[2018-08-02] MEDS ORDERED: IV D5/0.45 NACL 1,000 ML IV ONE (21:00)
[2018-08-02 21:28] VITALS: BP 99/74
[2018-08-02] MEDS: LANOLIN/MIN OIL/PETROLAT,WHT 3.5 GM TUBE EACHEYE SCH (21:29)
[2018-08-03] MEDS: LORAZEPAM INJ 2 MG/ML VIAL IVP PRN (01:00)
[2018-08-03] MEDS: IPRATROPIUM NEB FS 0.5 MG/2.5 ML AMPUL.NEB NEB SCH ×4 (01:32→20:07)
[2018-08-03] MEDS: BACLOFEN (10 MG) 10 MG TABLET GT SCH ×2 (05:40→18:08)
[2018-08-03] MEDS: OMEPRAZOLE 20 MG CAPSULE.DR GT SCH (05:40)
[2018-08-03 07:32] VITALS: BP 119/74
[2018-08-03] MEDS: SIMETHICONE SUSP 40 MG/0.6 ML BOTTLE GT SCH ×2 (09:00→21:51)
[2018-08-03] MEDS: MIDODRINE HCL (5MG) 5 MG TABLET GT SCH ×2 (09:00→21:51)
[2018-08-03] MEDS: ACIDOPHILUS/BULGARICUS 1 EACH TAB.CHEW GT SCH ×2 (09:00→17:00)
[2018-08-03] MEDS: FERROUS SULFATE - FOR SA ONLY 330 MG/7.5 ML UDC GT SCH ×2 (09:00→17:00)
[2018-08-03] MEDS: HYDROGEN PEROXIDE 480 ML BOTTLE TP SCH ×2 (09:00→21:51)
[2018-08-03] MEDS: PROSTAT (PYXIS) 30 ML UDC GT SCH ×2 (09:00→21:51)
[2018-08-03] MEDS: POLYVINYL ALCOHOL 15 ML BOTTLE OP SCH ×4 (09:00→21:51)
[2018-08-03] MEDS: CARVEDILOL 3.125 MG TABLET GT SCH ×2 (09:00→21:51)
[2018-08-03] MEDS: NYSTATIN TOP POWDER 15 GM BOTTLE TP SCH ×2 (09:00→21:51)
[2018-08-03] MEDS: Z GUARD REMEDY 4 OZ OINT TP SCH ×2 (09:00→21:51)
[2018-08-03 12:00] VITALS: BP 119/72
[2018-08-03] MEDS ORDERED: ETOMIDATE 2 MG/ML VIAL ONE (12:43)
[2018-08-03] MEDS: TWOCAL HN 1,000 ML LIQUID GT PRN (15:00)
[2018-08-03 18:00] VITALS: BP 112/62
[2018-08-03] MEDS ORDERED: IV D5/0.45 NACL 1,000 ML IV PRN (20:00)
[2018-08-03 20:50] VITALS: BP 113/65
[2018-08-03] MEDS: MULTIVIT W/MINERALS 1 TAB TABLET GT SCH (21:51)
[2018-08-03] MEDS: LANOLIN/MIN OIL/PETROLAT,WHT 3.5 GM TUBE EACHEYE SCH (21:51)
[2018-08-04] MEDS: IPRATROPIUM NEB FS 0.5 MG/2.5 ML AMPUL.NEB NEB SCH ×4 (01:31→19:01)
[2018-08-04] MEDS: OMEPRAZOLE 20 MG CAPSULE.DR GT SCH (05:34)
[2018-08-04] MEDS: BACLOFEN (10 MG) 10 MG TABLET GT SCH ×2 (05:34→17:57)
[2018-08-04 07:40] VITALS: BP 116/78
[2018-08-04] MEDS: POLYVINYL ALCOHOL 15 ML BOTTLE OP SCH ×4 (09:27→21:29)
[2018-08-04] MEDS: HYDROGEN PEROXIDE 480 ML BOTTLE TP SCH ×2 (09:27→21:29)
[2018-08-04] MEDS: Z GUARD REMEDY 4 OZ OINT TP SCH ×2 (09:27→21:29)
[2018-08-04] MEDS: CARVEDILOL 3.125 MG TABLET GT SCH ×2 (09:27→21:28)
[2018-08-04] MEDS: SIMETHICONE SUSP 40 MG/0.6 ML BOTTLE GT SCH ×2 (09:27→21:28)
[2018-08-04] MEDS: MIDODRINE HCL (5MG) 5 MG TABLET GT SCH ×2 (09:27→21:29)
[2018-08-04] MEDS: NYSTATIN TOP POWDER 15 GM BOTTLE TP SCH ×2 (09:27→21:29)
[2018-08-04] MEDS: ACIDOPHILUS/BULGARICUS 1 EACH TAB.CHEW GT SCH ×2 (09:27→17:57)
[2018-08-04] MEDS: FERROUS SULFATE - FOR SA ONLY 330 MG/7.5 ML UDC GT SCH ×2 (09:27→17:57)
[2018-08-04] MEDS: PROSTAT (PYXIS) 30 ML UDC GT SCH ×2 (09:27→21:29)
[2018-08-04] MEDS: LACTULOSE 10 G/15 ML UDC (PYXIS) GT PRN (12:00)
[2018-08-04] MEDS: TWOCAL HN 1,000 ML LIQUID GT PRN (18:11)
[2018-08-04 20:40] VITALS: BP 101/58
[2018-08-04] MEDS: LANOLIN/MIN OIL/PETROLAT,WHT 3.5 GM TUBE EACHEYE SCH (21:29)
[2018-08-04] MEDS: MULTIVIT W/MINERALS 1 TAB TABLET GT SCH (21:29)
[2018-08-05] MEDS: IPRATROPIUM NEB FS 0.5 MG/2.5 ML AMPUL.NEB NEB SCH ×4 (00:52→19:42)
[2018-08-05] MEDS: BACLOFEN (10 MG) 10 MG TABLET GT SCH ×2 (06:17→18:34)
[2018-08-05] MEDS: OMEPRAZOLE 20 MG CAPSULE.DR GT SCH (06:17)
[2018-08-05 07:35] VITALS: BP 108/77
[2018-08-05] MEDS: SIMETHICONE SUSP 40 MG/0.6 ML BOTTLE GT SCH ×2 (09:58→20:57)
[2018-08-05] MEDS: ACIDOPHILUS/BULGARICUS 1 EACH TAB.CHEW GT SCH ×2 (09:58→17:00)
[2018-08-05] MEDS: FERROUS SULFATE - FOR SA ONLY 330 MG/7.5 ML UDC GT SCH ×2 (09:58→17:00)
[2018-08-05] MEDS: CARVEDILOL 3.125 MG TABLET GT SCH ×2 (09:58→20:57)
[2018-08-05] MEDS: PROSTAT (PYXIS) 30 ML UDC GT SCH ×2 (09:58→20:57)
[2018-08-05] MEDS: MIDODRINE HCL (5MG) 5 MG TABLET GT SCH ×2 (09:58→20:57)
[2018-08-05] MEDS: POLYVINYL ALCOHOL 15 ML BOTTLE OP SCH ×4 (09:59→20:57)
[2018-08-05] MEDS: HYDROGEN PEROXIDE 480 ML BOTTLE TP SCH ×2 (09:59→20:57)
[2018-08-05] MEDS: NYSTATIN TOP POWDER 15 GM BOTTLE TP SCH ×2 (09:59→20:57)
[2018-08-05] MEDS: Z GUARD REMEDY 4 OZ OINT TP SCH ×2 (09:59→20:57)
[2018-08-05 20:05] VITALS: BP 118/75
[2018-08-05] MEDS: MULTIVIT W/MINERALS 1 TAB TABLET GT SCH (20:57)
[2018-08-05] MEDS: LANOLIN/MIN OIL/PETROLAT,WHT 3.5 GM TUBE EACHEYE SCH (21:15)
[2018-08-06] MEDS: TWOCAL HN 1,000 ML LIQUID GT PRN (00:02)
[2018-08-06] MEDS: IPRATROPIUM NEB FS 0.5 MG/2.5 ML AMPUL.NEB NEB SCH ×4 (01:21→20:22)
[2018-08-06] MEDS: BACLOFEN (10 MG) 10 MG TABLET GT SCH ×2 (06:01→17:32)
[2018-08-06] MEDS: OMEPRAZOLE 20 MG CAPSULE.DR GT SCH (06:01)
[2018-08-06 07:57] VITALS: BP 135/83
[2018-08-06] MEDS: CARVEDILOL 3.125 MG TABLET GT SCH ×2 (09:00→21:21)
[2018-08-06] MEDS: HYDROGEN PEROXIDE 480 ML BOTTLE TP SCH ×2 (09:00→21:36)
[2018-08-06] MEDS: POLYVINYL ALCOHOL 15 ML BOTTLE OP SCH ×4 (09:00→21:35)
[2018-08-06] MEDS: NYSTATIN TOP POWDER 15 GM BOTTLE TP SCH ×2 (09:00→21:36)
[2018-08-06] MEDS: PROSTAT (PYXIS) 30 ML UDC GT SCH ×2 (09:00→21:35)
[2018-08-06] MEDS: SIMETHICONE SUSP 40 MG/0.6 ML BOTTLE GT SCH ×2 (09:00→21:35)
[2018-08-06] MEDS: Z GUARD REMEDY 4 OZ OINT TP SCH ×2 (09:00→21:36)
[2018-08-06] MEDS: MIDODRINE HCL (5MG) 5 MG TABLET GT SCH ×2 (09:00→21:35)
[2018-08-06] MEDS: FERROUS SULFATE - FOR SA ONLY 330 MG/7.5 ML UDC GT SCH ×2 (09:00→17:32)
[2018-08-06] MEDS: ACIDOPHILUS/BULGARICUS 1 EACH TAB.CHEW GT SCH ×2 (09:00→17:32)
[2018-08-06] MEDS: LACTULOSE 10 G/15 ML UDC (PYXIS) GT PRN (17:50)
[2018-08-06 20:36] VITALS: BP 109/70
[2018-08-06] MEDS: MULTIVIT W/MINERALS 1 TAB TABLET GT SCH (21:35)
[2018-08-06] MEDS: LANOLIN/MIN OIL/PETROLAT,WHT 3.5 GM TUBE EACHEYE SCH (21:36)
[2018-08-07] MEDS: IPRATROPIUM NEB FS 0.5 MG/2.5 ML AMPUL.NEB NEB SCH ×4 (00:41→19:48)
[2018-08-07] MEDS: TWOCAL HN 1,000 ML LIQUID GT PRN (00:46)
[2018-08-07] MEDS: BACLOFEN (10 MG) 10 MG TABLET GT SCH ×2 (05:45→17:09)
[2018-08-07] MEDS: OMEPRAZOLE 20 MG CAPSULE.DR GT SCH (05:45)
[2018-08-07 07:36] VITALS: BP 104/62
[2018-08-07] MEDS: PROSTAT (PYXIS) 30 ML UDC GT SCH ×2 (09:18→21:11)
[2018-08-07] MEDS: HYDROGEN PEROXIDE 480 ML BOTTLE TP SCH ×2 (09:18→21:11)
[2018-08-07] MEDS: NYSTATIN TOP POWDER 15 GM BOTTLE TP SCH ×2 (09:18→21:11)
[2018-08-07] MEDS: SIMETHICONE SUSP 40 MG/0.6 ML BOTTLE GT SCH ×2 (09:18→21:11)
[2018-08-07] MEDS: POLYVINYL ALCOHOL 15 ML BOTTLE OP SCH ×4 (09:18→21:11)
[2018-08-07] MEDS: CARVEDILOL 3.125 MG TABLET GT SCH ×2 (09:18→21:11)
[2018-08-07] MEDS: MIDODRINE HCL (5MG) 5 MG TABLET GT SCH ×2 (09:18→21:00)
[2018-08-07] MEDS: FERROUS SULFATE - FOR SA ONLY 330 MG/7.5 ML UDC GT SCH ×2 (09:18→17:09)
[2018-08-07] MEDS: ACIDOPHILUS/BULGARICUS 1 EACH TAB.CHEW GT SCH ×2 (09:18→17:09)
[2018-08-07] MEDS: Z GUARD REMEDY 4 OZ OINT TP SCH ×2 (09:19→21:11)
[2018-08-07 20:06] VITALS: BP 134/80
[2018-08-07] MEDS: MULTIVIT W/MINERALS 1 TAB TABLET GT SCH (21:11)
[2018-08-07] MEDS: LANOLIN/MIN OIL/PETROLAT,WHT 3.5 GM TUBE EACHEYE SCH (21:12)
[2018-08-08] MEDS: IPRATROPIUM NEB FS 0.5 MG/2.5 ML AMPUL.NEB NEB SCH ×4 (01:35→20:19)
[2018-08-08] MEDS: OMEPRAZOLE 20 MG CAPSULE.DR GT SCH (05:46)
[2018-08-08] MEDS: BACLOFEN (10 MG) 10 MG TABLET GT SCH ×2 (05:46→17:55)
[2018-08-08 08:08] VITALS: BP 101/77
[2018-08-08] MEDS: Z GUARD REMEDY 4 OZ OINT TP SCH ×2 (09:00→21:39)
[2018-08-08] MEDS: HYDROGEN PEROXIDE 480 ML BOTTLE TP SCH ×2 (09:00→21:39)
[2018-08-08] MEDS: NYSTATIN TOP POWDER 15 GM BOTTLE TP SCH ×2 (09:00→21:39)
[2018-08-08] MEDS: MIDODRINE HCL (5MG) 5 MG TABLET GT SCH ×2 (09:36→21:37)
[2018-08-08] MEDS: FERROUS SULFATE - FOR SA ONLY 330 MG/7.5 ML UDC GT SCH ×2 (09:36→17:55)
[2018-08-08] MEDS: PROSTAT (PYXIS) 30 ML UDC GT SCH (09:36)
[2018-08-08] MEDS: CARVEDILOL 3.125 MG TABLET GT SCH ×2 (09:36→21:37)
[2018-08-08] MEDS: SIMETHICONE SUSP 40 MG/0.6 ML BOTTLE GT SCH ×2 (09:36→21:37)
[2018-08-08] MEDS: POLYVINYL ALCOHOL 15 ML BOTTLE OP SCH ×4 (09:36→21:38)
[2018-08-08] MEDS: ACIDOPHILUS/BULGARICUS 1 EACH TAB.CHEW GT SCH ×2 (09:36→17:55)
[2018-08-08] MEDS: TWOCAL HN 1,000 ML LIQUID GT PRN (13:27)
[2018-08-08 19:44] VITALS: BP 90/55
[2018-08-08] MEDS: MULTIVIT W/MINERALS 1 TAB TABLET GT SCH (21:37)
[2018-08-08] MEDS: LANOLIN/MIN OIL/PETROLAT,WHT 3.5 GM TUBE EACHEYE SCH (21:39)
[2018-08-09] MEDS: IPRATROPIUM NEB FS 0.5 MG/2.5 ML AMPUL.NEB NEB SCH ×4 (01:45→19:59)
[2018-08-09] MEDS: OMEPRAZOLE 20 MG CAPSULE.DR GT SCH (06:21)
[2018-08-09] MEDS: BACLOFEN (10 MG) 10 MG TABLET GT SCH ×2 (06:21→17:49)
[2018-08-09 07:53] VITALS: BP 112/74
[2018-08-09] MEDS: CARVEDILOL 3.125 MG TABLET GT SCH ×2 (09:57→21:48)
[2018-08-09] MEDS: POLYVINYL ALCOHOL 15 ML BOTTLE OP SCH ×4 (09:57→21:49)
[2018-08-09] MEDS: ACIDOPHILUS/BULGARICUS 1 EACH TAB.CHEW GT SCH ×2 (09:57→17:49)
[2018-08-09] MEDS: MIDODRINE HCL (5MG) 5 MG TABLET GT SCH ×2 (09:57→21:48)
[2018-08-09] MEDS: HYDROGEN PEROXIDE 480 ML BOTTLE TP SCH ×2 (09:57→21:49)
[2018-08-09] MEDS: NYSTATIN TOP POWDER 15 GM BOTTLE TP SCH ×2 (09:57→21:49)
[2018-08-09] MEDS: SIMETHICONE SUSP 40 MG/0.6 ML BOTTLE GT SCH ×2 (09:57→21:48)
[2018-08-09] MEDS: FERROUS SULFATE - FOR SA ONLY 330 MG/7.5 ML UDC GT SCH ×2 (09:57→17:49)
[2018-08-09] MEDS: Z GUARD REMEDY 4 OZ OINT TP SCH ×2 (09:58→21:49)
[2018-08-09] MEDS: TWOCAL HN 1,000 ML LIQUID GT PRN (15:16)
[2018-08-09 20:49] VITALS: BP 147/83
[2018-08-09] MEDS: MULTIVIT W/MINERALS 1 TAB TABLET GT SCH (21:48)
[2018-08-09] MEDS: LANOLIN/MIN OIL/PETROLAT,WHT 3.5 GM TUBE EACHEYE SCH (21:49)
[2018-08-10] MEDS: IPRATROPIUM NEB FS 0.5 MG/2.5 ML AMPUL.NEB NEB SCH ×4 (00:55→19:34)
[2018-08-10] MEDS: OMEPRAZOLE 20 MG CAPSULE.DR GT SCH (05:56)
[2018-08-10] MEDS: BACLOFEN (10 MG) 10 MG TABLET GT SCH ×2 (05:56→18:01)
[2018-08-10 07:46] VITALS: BP 103/74
[2018-08-10] MEDS: NYSTATIN TOP POWDER 15 GM BOTTLE TP SCH ×2 (09:00→21:32)
[2018-08-10] MEDS: POLYVINYL ALCOHOL 15 ML BOTTLE OP SCH ×3 (09:00→21:52)
[2018-08-10] MEDS: Z GUARD REMEDY 4 OZ OINT TP SCH ×2 (09:00→21:32)
[2018-08-10] MEDS: CARVEDILOL 3.125 MG TABLET GT SCH ×2 (09:59→21:32)
[2018-08-10] MEDS: SIMETHICONE SUSP 40 MG/0.6 ML BOTTLE GT SCH ×2 (09:59→21:32)
[2018-08-10] MEDS: FERROUS SULFATE - FOR SA ONLY 330 MG/7.5 ML UDC GT SCH ×2 (09:59→17:00)
[2018-08-10] MEDS: ACIDOPHILUS/BULGARICUS 1 EACH TAB.CHEW GT SCH ×2 (09:59→17:00)
[2018-08-10] MEDS: MIDODRINE HCL (5MG) 5 MG TABLET GT SCH ×2 (10:00→21:32)
[2018-08-10] MEDS: TWOCAL HN 1,000 ML LIQUID GT PRN (18:01)
[2018-08-10] MEDS: MULTIVIT W/MINERALS 1 TAB TABLET GT SCH (21:32)
[2018-08-10] MEDS: LANOLIN/MIN OIL/PETROLAT,WHT 3.5 GM TUBE EACHEYE SCH (21:32)
[2018-08-10 21:37] VITALS: BP 135/75
[2018-08-10] MEDS: HYDROGEN PEROXIDE 480 ML BOTTLE TP SCH (21:52)
[2018-08-11] MEDS: IPRATROPIUM NEB FS 0.5 MG/2.5 ML AMPUL.NEB NEB SCH ×4 (00:51→19:59)
[2018-08-11] MEDS: OMEPRAZOLE 20 MG CAPSULE.DR GT SCH (05:49)
[2018-08-11] MEDS: BACLOFEN (10 MG) 10 MG TABLET GT SCH ×2 (05:49→17:48)
[2018-08-11 07:43] VITALS: BP 104/54
[2018-08-11] MEDS: POLYVINYL ALCOHOL 15 ML BOTTLE OP SCH ×4 (08:59→20:52)
[2018-08-11] MEDS: CARVEDILOL 3.125 MG TABLET GT SCH ×2 (08:59→20:52)
[2018-08-11] MEDS: ACIDOPHILUS/BULGARICUS 1 EACH TAB.CHEW GT SCH ×2 (08:59→17:48)
[2018-08-11] MEDS: FERROUS SULFATE - FOR SA ONLY 330 MG/7.5 ML UDC GT SCH ×2 (08:59→17:48)
[2018-08-11] MEDS: MIDODRINE HCL (5MG) 5 MG TABLET GT SCH ×2 (08:59→20:52)
[2018-08-11] MEDS: SIMETHICONE SUSP 40 MG/0.6 ML BOTTLE GT SCH ×2 (08:59→20:52)
[2018-08-11] MEDS: NYSTATIN TOP POWDER 15 GM BOTTLE TP SCH ×2 (09:00→20:52)
[2018-08-11] MEDS: Z GUARD REMEDY 4 OZ OINT TP SCH ×2 (09:00→20:53)
[2018-08-11] MEDS: HYDROGEN PEROXIDE 480 ML BOTTLE TP SCH ×2 (09:00→20:52)
[2018-08-11 20:46] VITALS: BP 107/70
[2018-08-11] MEDS: MULTIVIT W/MINERALS 1 TAB TABLET GT SCH (20:52)
[2018-08-11] MEDS: LANOLIN/MIN OIL/PETROLAT,WHT 3.5 GM TUBE EACHEYE SCH (21:08)
[2018-08-12] MEDS: VANCOMYCIN 1 GM in IV NS 0.9% 250 ML IV SCH ×3 (00:14→23:39)
[2018-08-12] MEDS: IPRATROPIUM NEB FS 0.5 MG/2.5 ML AMPUL.NEB NEB SCH ×4 (01:40→19:55)
[2018-08-12] MEDS: TWOCAL HN 1,000 ML LIQUID GT PRN (05:32)
[2018-08-12] MEDS: BACLOFEN (10 MG) 10 MG TABLET GT SCH ×2 (05:32→18:00)
[2018-08-12] MEDS: OMEPRAZOLE 20 MG CAPSULE.DR GT SCH (05:32)
[2018-08-12 07:27] VITALS: BP 105/61
[2018-08-12] MEDS: ACIDOPHILUS/BULGARICUS 1 EACH TAB.CHEW GT SCH ×2 (09:00→17:00)
[2018-08-12] MEDS: SIMETHICONE SUSP 40 MG/0.6 ML BOTTLE GT SCH ×2 (09:00→20:47)
[2018-08-12] MEDS: POLYVINYL ALCOHOL 15 ML BOTTLE OP SCH ×4 (09:00→20:47)
[2018-08-12] MEDS: HYDROGEN PEROXIDE 480 ML BOTTLE TP SCH ×2 (09:00→20:47)
[2018-08-12] MEDS: BACI/NEOM/POLY B OINT PKT 1 UDPKT PACKET TP SCH ×2 (09:00→20:47)
[2018-08-12] MEDS: Z GUARD REMEDY 4 OZ OINT TP SCH ×2 (09:00→20:47)
[2018-08-12] MEDS: FERROUS SULFATE - FOR SA ONLY 330 MG/7.5 ML UDC GT SCH ×2 (09:00→17:00)
[2018-08-12] MEDS: MIDODRINE HCL (5MG) 5 MG TABLET GT SCH ×2 (09:00→20:47)
[2018-08-12] MEDS: CARVEDILOL 3.125 MG TABLET GT SCH ×2 (09:00→20:47)
[2018-08-12 13:11] LABS: BASOPHILS % (AUTO) 0.3 % (0.0-2.0); EOSINOPHILS % (AUTO) 1.6 % (0.0-6.0); HEMATOCRIT 30 % (33-45); HEMOGLOBIN 9.2 g/dL (11.5-14.8); LYMPHOCYTES # (AUTO) 2.4 /CMM (0.8-4.8); MEAN CORPUSCULAR HGB CONC 31 g/dl (31.0-36.0); MEAN CORPUSCULAR VOLUME 84 fL (82-100); MONOCYTES % (AUTO) 10.7 % (2.0-12.0); NEUTROPHILS # (AUTO) 5.8 /CMM (1.8-8.9); NEUTROPHILS % (AUTO) 61.4 % (43.0-81.0); PLATELET COUNT (AUTO) 237 /CMM (150-450); RED BLOOD CELL COUNT(AUTO) 3.56 MIL/uL (4.0-5.2); WHITE BLOOD COUNT (AUTO) 9.4 K/uL (4.3-11.0)
[2018-08-12 14:25] LABS: CALCIUM, SERUM 10.2 mg/dL (8.5-10.1); CREATININE 0.7 mg/dL (0.6-1.3); MAGNESIUM 2.4 mg/dL (1.8-2.4); POTASSIUM 4.4 mmol/L (3.5-5.1)
[2018-08-12] MEDS: GENTAMICIN OPTH OINT 0.3% 3.5 G TUBE OP SCH (17:00)
[2018-08-12 20:12] VITALS: BP 121/72
[2018-08-12] MEDS: MULTIVIT W/MINERALS 1 TAB TABLET GT SCH (20:47)
[2018-08-12] MEDS: LANOLIN/MIN OIL/PETROLAT,WHT 3.5 GM TUBE EACHEYE SCH (22:31)
[2018-08-12 23:39] LABS: CREATININE 0.6 mg/dL (0.6-1.3)
[2018-08-13] MEDS: IPRATROPIUM NEB FS 0.5 MG/2.5 ML AMPUL.NEB NEB SCH ×4 (02:23→19:45)
[2018-08-13] MEDS: TWOCAL HN 1,000 ML LIQUID GT PRN (03:37)
[2018-08-13] MEDS: OMEPRAZOLE 20 MG CAPSULE.DR GT SCH (05:24)
[2018-08-13] MEDS: BACLOFEN (10 MG) 10 MG TABLET GT SCH ×2 (05:24→17:34)
[2018-08-13 08:14] VITALS: BP 111/62
[2018-08-13] MEDS: Z GUARD REMEDY 4 OZ OINT TP SCH ×2 (09:00→20:54)
[2018-08-13] MEDS: MIDODRINE HCL (5MG) 5 MG TABLET GT SCH ×2 (09:00→20:53)
[2018-08-13] MEDS: HYDROGEN PEROXIDE 480 ML BOTTLE TP SCH ×2 (09:00→20:54)
[2018-08-13] MEDS: BACI/NEOM/POLY B OINT PKT 1 UDPKT PACKET TP SCH ×2 (09:00→20:54)
[2018-08-13] MEDS: FERROUS SULFATE - FOR SA ONLY 330 MG/7.5 ML UDC GT SCH ×2 (09:18→17:33)
[2018-08-13] MEDS: ACIDOPHILUS/BULGARICUS 1 EACH TAB.CHEW GT SCH ×2 (09:18→17:33)
[2018-08-13] MEDS: SIMETHICONE SUSP 40 MG/0.6 ML BOTTLE GT SCH ×2 (09:18→20:53)
[2018-08-13] MEDS: POLYVINYL ALCOHOL 15 ML BOTTLE OP SCH ×4 (09:19→20:54)
[2018-08-13] MEDS: GENTAMICIN OPTH OINT 0.3% 3.5 G TUBE OP SCH ×2 (09:21→17:34)
[2018-08-13] MEDS: CARVEDILOL 3.125 MG TABLET GT SCH ×2 (09:55→20:53)
[2018-08-13] MEDS: VANCOMYCIN 1 GM in IV NS 0.9% 250 ML IV SCH (12:00)
[2018-08-13 19:52] VITALS: BP 114/87
[2018-08-13] MEDS: MULTIVIT W/MINERALS 1 TAB TABLET GT SCH (20:53)
[2018-08-13] MEDS: LANOLIN/MIN OIL/PETROLAT,WHT 3.5 GM TUBE EACHEYE SCH (21:09)
[2018-08-14] MEDS: IPRATROPIUM NEB FS 0.5 MG/2.5 ML AMPUL.NEB NEB SCH ×4 (01:38→19:46)
[2018-08-14 05:00] VITALS: BP 140/96
[2018-08-14] MEDS: LORAZEPAM INJ 2 MG/ML VIAL IVP PRN (05:16)
[2018-08-14] MEDS: OMEPRAZOLE 20 MG CAPSULE.DR GT SCH (05:23)
[2018-08-14] MEDS: BACLOFEN (10 MG) 10 MG TABLET GT SCH ×2 (05:23→17:17)
[2018-08-14] MEDS: TWOCAL HN 1,000 ML LIQUID GT PRN (05:23)
[2018-08-14 07:29] VITALS: BP 110/65
[2018-08-14] MEDS: BACI/NEOM/POLY B OINT PKT 1 UDPKT PACKET TP SCH ×2 (09:00→21:00)
[2018-08-14] MEDS: Z GUARD REMEDY 4 OZ OINT TP SCH ×2 (09:00→21:00)
[2018-08-14] MEDS: HYDROGEN PEROXIDE 480 ML BOTTLE TP SCH ×2 (09:00→21:00)
[2018-08-14] MEDS: MIDODRINE HCL (5MG) 5 MG TABLET GT SCH ×2 (09:00→21:00)
[2018-08-14] MEDS: CARVEDILOL 3.125 MG TABLET GT SCH ×2 (09:01→21:00)
[2018-08-14] MEDS: SIMETHICONE SUSP 40 MG/0.6 ML BOTTLE GT SCH ×2 (09:02→21:00)
[2018-08-14] MEDS: POLYVINYL ALCOHOL 15 ML BOTTLE OP SCH ×4 (09:02→21:00)
[2018-08-14] MEDS: FERROUS SULFATE - FOR SA ONLY 330 MG/7.5 ML UDC GT SCH ×2 (09:02→17:16)
[2018-08-14] MEDS: GENTAMICIN OPTH OINT 0.3% 3.5 G TUBE OP SCH ×2 (09:02→17:17)
[2018-08-14] MEDS: ACIDOPHILUS/BULGARICUS 1 EACH TAB.CHEW GT SCH ×2 (09:02→17:17)
[2018-08-14] MEDS: VANCOMYCIN 1.25 GM in IV D5W 500 ML IV SCH (12:00)
[2018-08-14 20:05] VITALS: BP 110/74
[2018-08-14] MEDS: MULTIVIT W/MINERALS 1 TAB TABLET GT SCH (21:00)
[2018-08-14] MEDS: LANOLIN/MIN OIL/PETROLAT,WHT 3.5 GM TUBE EACHEYE SCH (22:03)
[2018-08-15] MEDS: IPRATROPIUM NEB FS 0.5 MG/2.5 ML AMPUL.NEB NEB SCH ×4 (01:45→19:29)
[2018-08-15] MEDS: OMEPRAZOLE 20 MG CAPSULE.DR GT SCH (06:06)
[2018-08-15] MEDS: BACLOFEN (10 MG) 10 MG TABLET GT SCH ×2 (06:06→17:46)
[2018-08-15 07:47] VITALS: BP 104/49
[2018-08-15] MEDS: FERROUS SULFATE - FOR SA ONLY 330 MG/7.5 ML UDC GT SCH ×2 (08:58→17:45)
[2018-08-15] MEDS: MIDODRINE HCL (5MG) 5 MG TABLET GT SCH ×2 (08:58→20:19)
[2018-08-15] MEDS: ACIDOPHILUS/BULGARICUS 1 EACH TAB.CHEW GT SCH ×2 (08:58→17:45)
[2018-08-15] MEDS: SIMETHICONE SUSP 40 MG/0.6 ML BOTTLE GT SCH ×2 (08:58→20:19)
[2018-08-15] MEDS: CARVEDILOL 3.125 MG TABLET GT SCH ×2 (08:58→20:19)
[2018-08-15] MEDS: Z GUARD REMEDY 4 OZ OINT TP SCH ×2 (09:00→20:21)
[2018-08-15] MEDS: HYDROGEN PEROXIDE 480 ML BOTTLE TP SCH ×2 (09:00→20:20)
[2018-08-15] MEDS: POLYVINYL ALCOHOL 15 ML BOTTLE OP SCH ×4 (09:00→20:20)
[2018-08-15] MEDS: BACI/NEOM/POLY B OINT PKT 1 UDPKT PACKET TP SCH ×2 (09:00→20:20)
[2018-08-15] MEDS: GENTAMICIN OPTH OINT 0.3% 3.5 G TUBE OP SCH ×2 (09:00→17:00)
[2018-08-15] MEDS: VANCOMYCIN 1.25 GM in IV D5W 500 ML IV SCH (12:00)
[2018-08-15] MEDS: TWOCAL HN 1,000 ML LIQUID GT PRN (17:47)
[2018-08-15 20:11] VITALS: BP 121/70
[2018-08-15] MEDS: MULTIVIT W/MINERALS 1 TAB TABLET GT SCH (20:19)
[2018-08-15] MEDS: LANOLIN/MIN OIL/PETROLAT,WHT 3.5 GM TUBE EACHEYE SCH (21:51)
[2018-08-16] MEDS: IPRATROPIUM NEB FS 0.5 MG/2.5 ML AMPUL.NEB NEB SCH ×4 (02:02→19:38)
[2018-08-16] MEDS: BACLOFEN (10 MG) 10 MG TABLET GT SCH ×2 (05:20→17:02)
[2018-08-16] MEDS: OMEPRAZOLE 20 MG CAPSULE.DR GT SCH (05:20)
[2018-08-16 07:32] VITALS: BP 95/56
[2018-08-16] MEDS: CARVEDILOL 3.125 MG TABLET GT SCH ×2 (09:21→20:46)
[2018-08-16] MEDS: SIMETHICONE SUSP 40 MG/0.6 ML BOTTLE GT SCH ×2 (09:21→20:46)
[2018-08-16] MEDS: ACIDOPHILUS/BULGARICUS 1 EACH TAB.CHEW GT SCH ×2 (09:21→17:02)
[2018-08-16] MEDS: FERROUS SULFATE - FOR SA ONLY 330 MG/7.5 ML UDC GT SCH ×2 (09:21→17:02)
[2018-08-16] MEDS: POLYVINYL ALCOHOL 15 ML BOTTLE OP SCH ×4 (09:22→20:46)
[2018-08-16] MEDS: MIDODRINE HCL (5MG) 5 MG TABLET GT SCH ×2 (09:22→20:46)
[2018-08-16] MEDS: Z GUARD REMEDY 4 OZ OINT TP SCH ×2 (09:23→20:47)
[2018-08-16] MEDS: GENTAMICIN OPTH OINT 0.3% 3.5 G TUBE OP SCH (09:23)
[2018-08-16] MEDS: HYDROGEN PEROXIDE 480 ML BOTTLE TP SCH ×2 (09:23→20:46)
[2018-08-16] MEDS: BACI/NEOM/POLY B OINT PKT 1 UDPKT PACKET TP SCH ×2 (09:23→20:46)
[2018-08-16] MEDS: VANCOMYCIN 1.25 GM in IV D5W 500 ML IV SCH (12:58)
[2018-08-16] MEDS: GENTAMICIN OPTH SOLN 0.3% 5 ML BOTTLE LEFTEYE SCH (17:00)
[2018-08-16 19:45] VITALS: BP 114/59
[2018-08-16] MEDS: MULTIVIT W/MINERALS 1 TAB TABLET GT SCH (20:46)
[2018-08-16] MEDS: ZINC OXIDE 30 GM TUBE TP SCH (20:47)
[2018-08-16] MEDS: LANOLIN/MIN OIL/PETROLAT,WHT 3.5 GM TUBE EACHEYE SCH (22:15)
[2018-08-17] MEDS: IPRATROPIUM NEB FS 0.5 MG/2.5 ML AMPUL.NEB NEB SCH ×4 (01:35→20:00)
[2018-08-17] MEDS: BACLOFEN (10 MG) 10 MG TABLET GT SCH ×2 (05:50→17:46)
[2018-08-17] MEDS: OMEPRAZOLE 20 MG CAPSULE.DR GT SCH (05:50)
[2018-08-17 07:57] VITALS: BP 99/65
[2018-08-17] MEDS: CARVEDILOL 3.125 MG TABLET GT SCH ×2 (09:36→20:21)
[2018-08-17] MEDS: SIMETHICONE SUSP 40 MG/0.6 ML BOTTLE GT SCH ×2 (09:38→20:22)
[2018-08-17] MEDS: FERROUS SULFATE - FOR SA ONLY 330 MG/7.5 ML UDC GT SCH ×2 (09:38→17:46)
[2018-08-17] MEDS: ACIDOPHILUS/BULGARICUS 1 EACH TAB.CHEW GT SCH ×2 (09:38→17:46)
[2018-08-17] MEDS: MIDODRINE HCL (5MG) 5 MG TABLET GT SCH ×2 (09:38→20:22)
[2018-08-17] MEDS: GENTAMICIN OPTH SOLN 0.3% 5 ML BOTTLE LEFTEYE SCH ×2 (09:38→17:46)
[2018-08-17] MEDS: POLYVINYL ALCOHOL 15 ML BOTTLE OP SCH ×4 (09:38→20:22)
[2018-08-17] MEDS: Z GUARD REMEDY 4 OZ OINT TP SCH ×2 (09:39→20:23)
[2018-08-17] MEDS: ZINC OXIDE 30 GM TUBE TP SCH ×2 (09:39→20:23)
[2018-08-17] MEDS: BACI/NEOM/POLY B OINT PKT 1 UDPKT PACKET TP SCH ×3 (09:39→20:22)
[2018-08-17] MEDS: HYDROGEN PEROXIDE 480 ML BOTTLE TP SCH ×2 (09:39→20:22)
[2018-08-17] MEDS: TWOCAL HN 1,000 ML LIQUID GT PRN (17:46)
[2018-08-17] MEDS ORDERED: VANCOMYCIN 1.25 GM in IV D5W 500 ML IV SCH (19:30)
[2018-08-17 19:54] VITALS: BP 126/77
[2018-08-17] MEDS: MULTIVIT W/MINERALS 1 TAB TABLET GT SCH (20:22)
[2018-08-17] MEDS: VANCOMYCIN 1.25 GM in IV D5W 500 ML IV SCH (21:10)
[2018-08-17] MEDS: LANOLIN/MIN OIL/PETROLAT,WHT 3.5 GM TUBE EACHEYE SCH (22:06)
[2018-08-18] MEDS: IPRATROPIUM NEB FS 0.5 MG/2.5 ML AMPUL.NEB NEB SCH ×4 (02:12→20:23)
[2018-08-18] MEDS: BACLOFEN (10 MG) 10 MG TABLET GT SCH ×2 (05:38→17:11)
[2018-08-18] MEDS: OMEPRAZOLE 20 MG CAPSULE.DR GT SCH (05:38)
[2018-08-18] MEDS: Z GUARD REMEDY 4 OZ OINT TP SCH ×2 (09:00→20:45)
[2018-08-18] MEDS: FERROUS SULFATE - FOR SA ONLY 330 MG/7.5 ML UDC GT SCH ×2 (09:24→17:11)
[2018-08-18] MEDS: SIMETHICONE SUSP 40 MG/0.6 ML BOTTLE GT SCH ×2 (09:24→20:45)
[2018-08-18] MEDS: MIDODRINE HCL (5MG) 5 MG TABLET GT SCH ×2 (09:25→20:45)
[2018-08-18] MEDS: HYDROGEN PEROXIDE 480 ML BOTTLE TP SCH ×2 (09:25→20:45)
[2018-08-18] MEDS: ACIDOPHILUS/BULGARICUS 1 EACH TAB.CHEW GT SCH ×2 (09:25→17:11)
[2018-08-18] MEDS: POLYVINYL ALCOHOL 15 ML BOTTLE OP SCH ×4 (09:25→20:45)
[2018-08-18] MEDS: BACI/NEOM/POLY B OINT PKT 1 UDPKT PACKET TP SCH ×4 (09:25→20:45)
[2018-08-18] MEDS: GENTAMICIN OPTH SOLN 0.3% 5 ML BOTTLE LEFTEYE SCH ×2 (09:25→17:11)
[2018-08-18] MEDS: CARVEDILOL 3.125 MG TABLET GT SCH ×2 (09:25→20:45)
[2018-08-18] MEDS: NEOMY SULF/BACITRAC ZN/POLY 15 GM TUBE TP SCH (09:25)
[2018-08-18] MEDS: ZINC OXIDE 30 GM TUBE TP SCH ×2 (09:26→20:46)
[2018-08-18 13:38] VITALS: BP 104/61
[2018-08-18 20:05] VITALS: BP 118/71
[2018-08-18] MEDS: MULTIVIT W/MINERALS 1 TAB TABLET GT SCH (20:45)
[2018-08-18] MEDS: VANCOMYCIN 1.25 GM in IV D5W 500 ML IV SCH (21:00)
[2018-08-18 21:26] LABS: CREATININE 0.7 mg/dL (0.6-1.3)
[2018-08-18] MEDS: LANOLIN/MIN OIL/PETROLAT,WHT 3.5 GM TUBE EACHEYE SCH (21:27)
[2018-08-19] MEDS: IPRATROPIUM NEB FS 0.5 MG/2.5 ML AMPUL.NEB NEB SCH ×4 (01:48→19:54)
[2018-08-19] MEDS: LACTULOSE 10 G/15 ML UDC (PYXIS) GT PRN (05:48)
[2018-08-19] MEDS: TWOCAL HN 1,000 ML LIQUID GT PRN (05:48)
[2018-08-19] MEDS: OMEPRAZOLE 20 MG CAPSULE.DR GT SCH (05:48)
[2018-08-19] MEDS: BACLOFEN (10 MG) 10 MG TABLET GT SCH ×2 (05:48→17:42)
[2018-08-19 07:27] VITALS: BP 113/68
[2018-08-19] MEDS: CARVEDILOL 3.125 MG TABLET GT SCH ×2 (09:25→20:40)
[2018-08-19] MEDS: ACIDOPHILUS/BULGARICUS 1 EACH TAB.CHEW GT SCH ×2 (09:25→17:42)
[2018-08-19] MEDS: FERROUS SULFATE - FOR SA ONLY 330 MG/7.5 ML UDC GT SCH ×2 (09:25→17:42)
[2018-08-19] MEDS: SIMETHICONE SUSP 40 MG/0.6 ML BOTTLE GT SCH ×2 (09:25→20:38)
[2018-08-19] MEDS: Z GUARD REMEDY 4 OZ OINT TP SCH ×2 (09:26→20:39)
[2018-08-19] MEDS: NEOMY SULF/BACITRAC ZN/POLY 15 GM TUBE TP SCH (09:26)
[2018-08-19] MEDS: POLYVINYL ALCOHOL 15 ML BOTTLE OP SCH ×4 (09:26→20:38)
[2018-08-19] MEDS: HYDROGEN PEROXIDE 480 ML BOTTLE TP SCH ×2 (09:26→20:39)
[2018-08-19] MEDS: BACI/NEOM/POLY B OINT PKT 1 UDPKT PACKET TP SCH ×4 (09:26→20:39)
[2018-08-19] MEDS: MIDODRINE HCL (5MG) 5 MG TABLET GT SCH ×2 (09:26→20:38)
[2018-08-19] MEDS: GENTAMICIN OPTH SOLN 0.3% 5 ML BOTTLE LEFTEYE SCH ×2 (09:26→17:42)
[2018-08-19] MEDS: ZINC OXIDE 30 GM TUBE TP SCH ×2 (09:26→20:39)
[2018-08-19 19:41] VITALS: BP 139/63
[2018-08-19] MEDS: MULTIVIT W/MINERALS 1 TAB TABLET GT SCH (20:38)
[2018-08-19] MEDS: VANCOMYCIN 1.25 GM in IV D5W 500 ML IV SCH (21:00)
[2018-08-19] MEDS: LANOLIN/MIN OIL/PETROLAT,WHT 3.5 GM TUBE EACHEYE SCH (21:18)
[2018-08-20] MEDS: IPRATROPIUM NEB FS 0.5 MG/2.5 ML AMPUL.NEB NEB SCH ×4 (01:38→19:36)
[2018-08-20] MEDS: OMEPRAZOLE 20 MG CAPSULE.DR GT SCH (05:16)
[2018-08-20] MEDS: TWOCAL HN 1,000 ML LIQUID GT PRN (05:16)
[2018-08-20] MEDS: BACLOFEN (10 MG) 10 MG TABLET GT SCH ×2 (05:16→17:25)
[2018-08-20 07:38] VITALS: BP 122/82
[2018-08-20] MEDS: HYDROGEN PEROXIDE 480 ML BOTTLE TP SCH ×2 (09:47→20:14)
[2018-08-20] MEDS: BACI/NEOM/POLY B OINT PKT 1 UDPKT PACKET TP SCH ×4 (09:47→20:14)
[2018-08-20] MEDS: NEOMY SULF/BACITRAC ZN/POLY 15 GM TUBE TP SCH (09:47)
[2018-08-20] MEDS: ACIDOPHILUS/BULGARICUS 1 EACH TAB.CHEW GT SCH ×2 (09:47→17:25)
[2018-08-20] MEDS: Z GUARD REMEDY 4 OZ OINT TP SCH ×2 (09:47→20:14)
[2018-08-20] MEDS: SIMETHICONE SUSP 40 MG/0.6 ML BOTTLE GT SCH ×2 (09:47→20:14)
[2018-08-20] MEDS: FERROUS SULFATE - FOR SA ONLY 330 MG/7.5 ML UDC GT SCH ×2 (09:47→17:25)
[2018-08-20] MEDS: GENTAMICIN OPTH SOLN 0.3% 5 ML BOTTLE LEFTEYE SCH ×2 (09:47→17:25)
[2018-08-20] MEDS: POLYVINYL ALCOHOL 15 ML BOTTLE OP SCH ×4 (09:47→20:14)
[2018-08-20] MEDS: ZINC OXIDE 30 GM TUBE TP SCH ×2 (09:47→20:14)
[2018-08-20] MEDS: MIDODRINE HCL (5MG) 5 MG TABLET GT SCH ×2 (09:48→20:14)
[2018-08-20] MEDS: CARVEDILOL 3.125 MG TABLET GT SCH ×2 (09:48→20:14)
[2018-08-20] MEDS: MULTIVIT W/MINERALS 1 TAB TABLET GT SCH (20:14)
[2018-08-20] MEDS: LACTULOSE 10 G/15 ML UDC (PYXIS) GT PRN (20:14)
[2018-08-20 20:39] VITALS: BP 109/64
[2018-08-20] MEDS: VANCOMYCIN 1.25 GM in IV D5W 500 ML IV SCH (21:00)
[2018-08-20] MEDS: LANOLIN/MIN OIL/PETROLAT,WHT 3.5 GM TUBE EACHEYE SCH (22:49)
[2018-08-21] MEDS: IPRATROPIUM NEB FS 0.5 MG/2.5 ML AMPUL.NEB NEB SCH ×4 (01:37→19:21)
[2018-08-21] MEDS: BACLOFEN (10 MG) 10 MG TABLET GT SCH ×2 (05:39→17:26)
[2018-08-21] MEDS: TWOCAL HN 1,000 ML LIQUID GT PRN (05:39)
[2018-08-21] MEDS: OMEPRAZOLE 20 MG CAPSULE.DR GT SCH (05:39)
[2018-08-21 07:49] VITALS: BP 110/66
[2018-08-21] MEDS: CARVEDILOL 3.125 MG TABLET GT SCH ×2 (09:00→21:12)
[2018-08-21] MEDS: POLYVINYL ALCOHOL 15 ML BOTTLE OP SCH ×4 (09:00→21:13)
[2018-08-21] MEDS: FERROUS SULFATE - FOR SA ONLY 330 MG/7.5 ML UDC GT SCH ×2 (09:00→17:26)
[2018-08-21] MEDS: NEOMY SULF/BACITRAC ZN/POLY 15 GM TUBE TP SCH (09:00)
[2018-08-21] MEDS: MIDODRINE HCL (5MG) 5 MG TABLET GT SCH ×2 (09:00→21:00)
[2018-08-21] MEDS: SIMETHICONE SUSP 40 MG/0.6 ML BOTTLE GT SCH ×2 (09:00→21:12)
[2018-08-21] MEDS: ZINC OXIDE 30 GM TUBE TP SCH ×2 (09:00→21:13)
[2018-08-21] MEDS: GENTAMICIN OPTH SOLN 0.3% 5 ML BOTTLE LEFTEYE SCH ×2 (09:00→17:26)
[2018-08-21] MEDS: HYDROGEN PEROXIDE 480 ML BOTTLE TP SCH ×2 (09:00→21:13)
[2018-08-21] MEDS: BACI/NEOM/POLY B OINT PKT 1 UDPKT PACKET TP SCH ×4 (09:00→21:13)
[2018-08-21] MEDS: ACIDOPHILUS/BULGARICUS 1 EACH TAB.CHEW GT SCH ×2 (09:00→17:26)
[2018-08-21] MEDS: Z GUARD REMEDY 4 OZ OINT TP SCH ×2 (09:00→21:13)
[2018-08-21 19:51] VITALS: BP 121/88
[2018-08-21] MEDS: VANCOMYCIN 1.25 GM in IV D5W 500 ML IV SCH (21:10)
[2018-08-21] MEDS: MULTIVIT W/MINERALS 1 TAB TABLET GT SCH (21:12)
[2018-08-21] MEDS: LANOLIN/MIN OIL/PETROLAT,WHT 3.5 GM TUBE EACHEYE SCH (21:13)
[2018-08-22] MEDS: IPRATROPIUM NEB FS 0.5 MG/2.5 ML AMPUL.NEB NEB SCH ×4 (00:53→19:31)
[2018-08-22] MEDS: TWOCAL HN 1,000 ML LIQUID GT PRN (06:05)
[2018-08-22] MEDS: BACLOFEN (10 MG) 10 MG TABLET GT SCH ×2 (06:05→17:34)
[2018-08-22] MEDS: OMEPRAZOLE 20 MG CAPSULE.DR GT SCH (06:05)
[2018-08-22 07:21] VITALS: BP 121/75
[2018-08-22] MEDS: ZINC OXIDE 30 GM TUBE TP SCH ×2 (09:00→21:36)
[2018-08-22] MEDS: Z GUARD REMEDY 4 OZ OINT TP SCH ×2 (09:00→21:36)
[2018-08-22] MEDS: BACI/NEOM/POLY B OINT PKT 1 UDPKT PACKET TP SCH ×4 (09:00→21:36)
[2018-08-22] MEDS: NEOMY SULF/BACITRAC ZN/POLY 15 GM TUBE TP SCH (09:00)
[2018-08-22] MEDS: HYDROGEN PEROXIDE 480 ML BOTTLE TP SCH ×2 (09:00→21:35)
[2018-08-22] MEDS: SIMETHICONE SUSP 40 MG/0.6 ML BOTTLE GT SCH ×2 (09:46→21:34)
[2018-08-22] MEDS: MIDODRINE HCL (5MG) 5 MG TABLET GT SCH ×2 (09:46→21:00)
[2018-08-22] MEDS: FERROUS SULFATE - FOR SA ONLY 330 MG/7.5 ML UDC GT SCH ×2 (09:46→17:34)
[2018-08-22] MEDS: ACIDOPHILUS/BULGARICUS 1 EACH TAB.CHEW GT SCH ×2 (09:46→17:34)
[2018-08-22] MEDS: CARVEDILOL 3.125 MG TABLET GT SCH ×2 (09:46→21:32)
[2018-08-22] MEDS: GENTAMICIN OPTH SOLN 0.3% 5 ML BOTTLE LEFTEYE SCH ×2 (09:48→17:34)
[2018-08-22] MEDS: POLYVINYL ALCOHOL 15 ML BOTTLE OP SCH ×4 (09:48→21:35)
[2018-08-22 20:00] VITALS: BP 123/76
[2018-08-22 20:20] VITALS: BP 123/76
[2018-08-22] MEDS: LANOLIN/MIN OIL/PETROLAT,WHT 3.5 GM TUBE EACHEYE SCH (21:36)
[2018-08-22] MEDS: MULTIVIT W/MINERALS 1 TAB TABLET GT SCH (21:38)
[2018-08-23] MEDS: IPRATROPIUM NEB FS 0.5 MG/2.5 ML AMPUL.NEB NEB SCH ×4 (01:30→19:48)
[2018-08-23] MEDS: TWOCAL HN 1,000 ML LIQUID GT PRN (04:21)
[2018-08-23] MEDS: BACLOFEN (10 MG) 10 MG TABLET GT SCH ×2 (05:45→17:40)
[2018-08-23] MEDS: OMEPRAZOLE 20 MG CAPSULE.DR GT SCH (05:45)
[2018-08-23 07:52] VITALS: BP 99/50
[2018-08-23] MEDS: GENTAMICIN OPTH SOLN 0.3% 5 ML BOTTLE LEFTEYE SCH ×2 (09:50→17:40)
[2018-08-23] MEDS: ACIDOPHILUS/BULGARICUS 1 EACH TAB.CHEW GT SCH ×2 (09:50→17:40)
[2018-08-23] MEDS: HYDROGEN PEROXIDE 480 ML BOTTLE TP SCH ×2 (09:50→21:31)
[2018-08-23] MEDS: SIMETHICONE SUSP 40 MG/0.6 ML BOTTLE GT SCH ×2 (09:50→21:31)
[2018-08-23] MEDS: MIDODRINE HCL (5MG) 5 MG TABLET GT SCH ×2 (09:50→21:31)
[2018-08-23] MEDS: FERROUS SULFATE - FOR SA ONLY 330 MG/7.5 ML UDC GT SCH ×2 (09:50→17:39)
[2018-08-23] MEDS: CARVEDILOL 3.125 MG TABLET GT SCH ×2 (09:50→21:30)
[2018-08-23] MEDS: BACI/NEOM/POLY B OINT PKT 1 UDPKT PACKET TP SCH ×4 (09:50→21:31)
[2018-08-23] MEDS: POLYVINYL ALCOHOL 15 ML BOTTLE OP SCH ×4 (09:50→21:31)
[2018-08-23] MEDS: Z GUARD REMEDY 4 OZ OINT TP SCH ×2 (09:50→21:31)
[2018-08-23] MEDS: NEOMY SULF/BACITRAC ZN/POLY 15 GM TUBE TP SCH (09:50)
[2018-08-23] MEDS: ZINC OXIDE 30 GM TUBE TP SCH ×2 (09:51→21:31)
[2018-08-23 20:40] VITALS: BP 111/69
[2018-08-23] MEDS: LANOLIN/MIN OIL/PETROLAT,WHT 3.5 GM TUBE EACHEYE SCH (21:31)
[2018-08-23] MEDS: MULTIVIT W/MINERALS 1 TAB TABLET GT SCH (21:31)
[2018-08-24] MEDS: IPRATROPIUM NEB FS 0.5 MG/2.5 ML AMPUL.NEB NEB SCH ×4 (02:24→20:12)
[2018-08-24] MEDS: OMEPRAZOLE 20 MG CAPSULE.DR GT SCH (05:43)
[2018-08-24] MEDS: BACLOFEN (10 MG) 10 MG TABLET GT SCH ×2 (05:43→17:24)
[2018-08-24 08:40] VITALS: BP 115/80
[2018-08-24] MEDS: CARVEDILOL 3.125 MG TABLET GT SCH ×2 (08:42→20:48)
[2018-08-24] MEDS: FERROUS SULFATE - FOR SA ONLY 330 MG/7.5 ML UDC GT SCH ×2 (08:43→17:23)
[2018-08-24] MEDS: ACIDOPHILUS/BULGARICUS 1 EACH TAB.CHEW GT SCH ×2 (08:43→17:23)
[2018-08-24] MEDS: SIMETHICONE SUSP 40 MG/0.6 ML BOTTLE GT SCH ×2 (08:43→20:48)
[2018-08-24] MEDS: MIDODRINE HCL (5MG) 5 MG TABLET GT SCH ×2 (08:44→20:48)
[2018-08-24] MEDS: POLYVINYL ALCOHOL 15 ML BOTTLE OP SCH ×4 (08:45→20:50)
[2018-08-24] MEDS: GENTAMICIN OPTH SOLN 0.3% 5 ML BOTTLE LEFTEYE SCH ×2 (08:45→17:23)
[2018-08-24] MEDS: HYDROGEN PEROXIDE 480 ML BOTTLE TP SCH ×2 (08:52→20:50)
[2018-08-24] MEDS: Z GUARD REMEDY 4 OZ OINT TP SCH ×2 (08:53→20:50)
[2018-08-24] MEDS: BACI/NEOM/POLY B OINT PKT 1 UDPKT PACKET TP SCH ×4 (08:53→20:50)
[2018-08-24] MEDS: NEOMY SULF/BACITRAC ZN/POLY 15 GM TUBE TP SCH (08:53)
[2018-08-24] MEDS: ZINC OXIDE 30 GM TUBE TP SCH ×2 (08:54→20:50)
[2018-08-24] MEDS: TWOCAL HN 1,000 ML LIQUID GT PRN (12:36)
[2018-08-24] MEDS ORDERED: DIATR MEGLU/DIATRIZOATE SODIUM 30 ML BOTTLE (GASTROGRAPHIN) ONE (15:37)
[2018-08-24 20:27] VITALS: BP 118/77
[2018-08-24] MEDS: MULTIVIT W/MINERALS 1 TAB TABLET GT SCH (20:50)
[2018-08-24] MEDS: LANOLIN/MIN OIL/PETROLAT,WHT 3.5 GM TUBE EACHEYE SCH (22:32)
[2018-08-25] MEDS: IPRATROPIUM NEB FS 0.5 MG/2.5 ML AMPUL.NEB NEB SCH ×4 (02:15→19:36)
[2018-08-25] MEDS: OMEPRAZOLE 20 MG CAPSULE.DR GT SCH (05:48)
[2018-08-25] MEDS: BACLOFEN (10 MG) 10 MG TABLET GT SCH ×2 (05:48→18:16)
[2018-08-25 07:26] VITALS: BP 105/72
[2018-08-25] MEDS: BACI/NEOM/POLY B OINT PKT 1 UDPKT PACKET TP SCH ×4 (09:00→21:01)
[2018-08-25] MEDS: HYDROGEN PEROXIDE 480 ML BOTTLE TP SCH ×2 (09:00→21:01)
[2018-08-25] MEDS: NEOMY SULF/BACITRAC ZN/POLY 15 GM TUBE TP SCH (09:00)
[2018-08-25] MEDS: Z GUARD REMEDY 4 OZ OINT TP SCH ×2 (09:00→21:01)
[2018-08-25] MEDS: ZINC OXIDE 30 GM TUBE TP SCH ×2 (09:00→21:02)
[2018-08-25] MEDS: MIDODRINE HCL (5MG) 5 MG TABLET GT SCH ×2 (09:32→21:01)
[2018-08-25] MEDS: GENTAMICIN OPTH SOLN 0.3% 5 ML BOTTLE LEFTEYE SCH ×2 (09:33→17:00)
[2018-08-25] MEDS: ACIDOPHILUS/BULGARICUS 1 EACH TAB.CHEW GT SCH ×2 (09:33→17:00)
[2018-08-25] MEDS: CARVEDILOL 3.125 MG TABLET GT SCH ×2 (09:33→21:01)
[2018-08-25] MEDS: SIMETHICONE SUSP 40 MG/0.6 ML BOTTLE GT SCH ×2 (09:33→21:01)
[2018-08-25] MEDS: FERROUS SULFATE - FOR SA ONLY 330 MG/7.5 ML UDC GT SCH ×2 (09:33→17:00)
[2018-08-25] MEDS: POLYVINYL ALCOHOL 15 ML BOTTLE OP SCH ×4 (09:34→21:01)
[2018-08-25] MEDS: TWOCAL HN 1,000 ML LIQUID GT PRN (18:17)
[2018-08-25] MEDS: MULTIVIT W/MINERALS 1 TAB TABLET GT SCH (21:01)
[2018-08-25] MEDS: LANOLIN/MIN OIL/PETROLAT,WHT 3.5 GM TUBE EACHEYE SCH (21:02)
[2018-08-26] MEDS: IPRATROPIUM NEB FS 0.5 MG/2.5 ML AMPUL.NEB NEB SCH ×4 (02:11→20:11)
[2018-08-26 04:26] VITALS: BP 95/66
[2018-08-26] MEDS: OMEPRAZOLE 20 MG CAPSULE.DR GT SCH (06:07)
[2018-08-26] MEDS: BACLOFEN (10 MG) 10 MG TABLET GT SCH ×2 (06:07→18:33)
[2018-08-26 07:51] VITALS: BP 108/70
[2018-08-26] MEDS: NEOMY SULF/BACITRAC ZN/POLY 15 GM TUBE TP SCH (09:00)
[2018-08-26] MEDS: HYDROGEN PEROXIDE 480 ML BOTTLE TP SCH ×2 (09:00→21:35)
[2018-08-26] MEDS: Z GUARD REMEDY 4 OZ OINT TP SCH ×2 (09:00→21:35)
[2018-08-26] MEDS: BACI/NEOM/POLY B OINT PKT 1 UDPKT PACKET TP SCH ×2 (09:00→21:35)
[2018-08-26] MEDS: ZINC OXIDE 30 GM TUBE TP SCH ×2 (09:00→21:35)
[2018-08-26] MEDS: FERROUS SULFATE - FOR SA ONLY 330 MG/7.5 ML UDC GT SCH ×2 (09:04→16:07)
[2018-08-26] MEDS: CARVEDILOL 3.125 MG TABLET GT SCH ×2 (09:04→21:34)
[2018-08-26] MEDS: SIMETHICONE SUSP 40 MG/0.6 ML BOTTLE GT SCH ×2 (09:05→21:34)
[2018-08-26] MEDS: POLYVINYL ALCOHOL 15 ML BOTTLE OP SCH ×4 (09:05→21:35)
[2018-08-26] MEDS: ACIDOPHILUS/BULGARICUS 1 EACH TAB.CHEW GT SCH ×2 (09:05→16:07)
[2018-08-26] MEDS: MIDODRINE HCL (5MG) 5 MG TABLET GT SCH ×2 (09:05→21:34)
[2018-08-26] MEDS: GENTAMICIN OPTH SOLN 0.3% 5 ML BOTTLE LEFTEYE SCH ×2 (09:05→16:08)
[2018-08-26 10:42] LABS: BASOPHILS # (AUTO) 0.1 /CMM (0.0-0.2); BASOPHILS % (AUTO) 0.9 % (0.0-2.0); EOSINOPHILS % (AUTO) 4.6 % (0.0-6.0); HEMATOCRIT 28 % (33-45); HEMOGLOBIN 8.7 g/dL (11.5-14.8); LYMPHOCYTES # (AUTO) 2.6 /CMM (0.8-4.8); LYMPHOCYTES % (AUTO) 33.8 % (20.0-44.0); MEAN CORPUSCULAR HGB CONC 31 g/dl (31.0-36.0); MEAN CORPUSCULAR VOLUME 81 fL (82-100); MONOCYTES # (AUTO) 0.6 /CMM (0.1-1.30); MONOCYTES % (AUTO) 7.9 % (2.0-12.0); NEUTROPHILS % (AUTO) 52.8 % (43.0-81.0); PLATELET COUNT (AUTO) 470 /CMM (150-450); RED BLOOD CELL COUNT(AUTO) 3.46 MIL/uL (4.0-5.2); WHITE BLOOD COUNT (AUTO) 7.6 K/uL (4.3-11.0)
[2018-08-26 10:54] LABS: CREATININE 0.6 mg/dL (0.6-1.3); MAGNESIUM 2.1 mg/dL (1.8-2.4); PHOSPHORUS 3.2 mg/dL (2.5-4.9); POTASSIUM 4.5 mmol/L (3.5-5.1)
[2018-08-26 20:31] VITALS: BP 115/79
[2018-08-26] MEDS: MULTIVIT W/MINERALS 1 TAB TABLET GT SCH (21:35)
[2018-08-26] MEDS: LANOLIN/MIN OIL/PETROLAT,WHT 3.5 GM TUBE EACHEYE SCH (21:35)
[2018-08-26] MEDS: TWOCAL HN 1,000 ML LIQUID GT PRN (21:35)
[2018-08-27] MEDS: IPRATROPIUM NEB FS 0.5 MG/2.5 ML AMPUL.NEB NEB SCH ×4 (01:03→20:02)
[2018-08-27] MEDS: OMEPRAZOLE 20 MG CAPSULE.DR GT SCH (06:34)
[2018-08-27] MEDS: BACLOFEN (10 MG) 10 MG TABLET GT SCH ×2 (06:34→17:52)
[2018-08-27 07:35] VITALS: BP 112/67
[2018-08-27] MEDS: POLYVINYL ALCOHOL 15 ML BOTTLE OP SCH ×4 (09:54→20:51)
[2018-08-27] MEDS: FERROUS SULFATE - FOR SA ONLY 330 MG/7.5 ML UDC GT SCH ×2 (09:54→17:52)
[2018-08-27] MEDS: SIMETHICONE SUSP 40 MG/0.6 ML BOTTLE GT SCH ×2 (09:54→20:50)
[2018-08-27] MEDS: ACIDOPHILUS/BULGARICUS 1 EACH TAB.CHEW GT SCH ×2 (09:54→17:52)
[2018-08-27] MEDS: GENTAMICIN OPTH SOLN 0.3% 5 ML BOTTLE LEFTEYE SCH ×2 (09:54→17:52)
[2018-08-27] MEDS: CARVEDILOL 3.125 MG TABLET GT SCH ×2 (09:54→20:50)
[2018-08-27] MEDS: HYDROGEN PEROXIDE 480 ML BOTTLE TP SCH ×2 (09:54→20:51)
[2018-08-27] MEDS: MIDODRINE HCL (5MG) 5 MG TABLET GT SCH ×2 (09:54→20:50)
[2018-08-27] MEDS: NEOMY SULF/BACITRAC ZN/POLY 15 GM TUBE TP SCH (09:55)
[2018-08-27] MEDS: BACI/NEOM/POLY B OINT PKT 1 UDPKT PACKET TP SCH ×2 (09:55→20:51)
[2018-08-27] MEDS: ZINC OXIDE 30 GM TUBE TP SCH ×2 (09:55→20:51)
[2018-08-27] MEDS: Z GUARD REMEDY 4 OZ OINT TP SCH ×2 (09:55→20:51)
[2018-08-27 20:13] VITALS: BP 98/68
[2018-08-27] MEDS: MULTIVIT W/MINERALS 1 TAB TABLET GT SCH (20:51)
[2018-08-27] MEDS: LANOLIN/MIN OIL/PETROLAT,WHT 3.5 GM TUBE EACHEYE SCH (21:07)
[2018-08-28] MEDS: IPRATROPIUM NEB FS 0.5 MG/2.5 ML AMPUL.NEB NEB SCH ×4 (01:06→19:50)
[2018-08-28] MEDS: OMEPRAZOLE 20 MG CAPSULE.DR GT SCH (05:19)
[2018-08-28] MEDS: BACLOFEN (10 MG) 10 MG TABLET GT SCH ×2 (05:19→18:44)
[2018-08-28] MEDS: TWOCAL HN 1,000 ML LIQUID GT PRN (06:13)
[2018-08-28 08:23] VITALS: BP 101/65
[2018-08-28] MEDS: NEOMY SULF/BACITRAC ZN/POLY 15 GM TUBE TP SCH (09:00)
[2018-08-28] MEDS: GENTAMICIN OPTH SOLN 0.3% 5 ML BOTTLE LEFTEYE SCH ×2 (09:00→17:00)
[2018-08-28] MEDS: Z GUARD REMEDY 4 OZ OINT TP SCH ×2 (09:00→20:37)
[2018-08-28] MEDS: ACIDOPHILUS/BULGARICUS 1 EACH TAB.CHEW GT SCH ×2 (09:00→17:00)
[2018-08-28] MEDS: CARVEDILOL 3.125 MG TABLET GT SCH ×2 (09:00→20:36)
[2018-08-28] MEDS: POLYVINYL ALCOHOL 15 ML BOTTLE OP SCH ×4 (09:00→20:37)
[2018-08-28] MEDS: FERROUS SULFATE - FOR SA ONLY 330 MG/7.5 ML UDC GT SCH ×2 (09:00→17:00)
[2018-08-28] MEDS: HYDROGEN PEROXIDE 480 ML BOTTLE TP SCH ×2 (09:00→20:37)
[2018-08-28] MEDS: MIDODRINE HCL (5MG) 5 MG TABLET GT SCH ×2 (09:00→20:36)
[2018-08-28] MEDS: SIMETHICONE SUSP 40 MG/0.6 ML BOTTLE GT SCH ×2 (09:00→20:36)
[2018-08-28] MEDS: BACI/NEOM/POLY B OINT PKT 1 UDPKT PACKET TP SCH ×2 (09:00→20:37)
[2018-08-28] MEDS: ZINC OXIDE 30 GM TUBE TP SCH ×2 (09:00→20:37)
[2018-08-28 19:56] VITALS: BP 107/60
[2018-08-28] MEDS: MULTIVIT W/MINERALS 1 TAB TABLET GT SCH (20:37)
[2018-08-28] MEDS: LANOLIN/MIN OIL/PETROLAT,WHT 3.5 GM TUBE EACHEYE SCH (22:00)
[2018-08-29] MEDS: IPRATROPIUM NEB FS 0.5 MG/2.5 ML AMPUL.NEB NEB SCH ×4 (01:46→19:44)
[2018-08-29] MEDS: OMEPRAZOLE 20 MG CAPSULE.DR GT SCH (05:29)
[2018-08-29] MEDS: BACLOFEN (10 MG) 10 MG TABLET GT SCH ×2 (05:29→17:53)
[2018-08-29 08:53] VITALS: BP 115/71
[2018-08-29] MEDS: CARVEDILOL 3.125 MG TABLET GT SCH ×2 (09:49→20:02)
[2018-08-29] MEDS: SIMETHICONE SUSP 40 MG/0.6 ML BOTTLE GT SCH ×2 (09:49→20:02)
[2018-08-29] MEDS: ACIDOPHILUS/BULGARICUS 1 EACH TAB.CHEW GT SCH ×2 (09:49→17:53)
[2018-08-29] MEDS: FERROUS SULFATE - FOR SA ONLY 330 MG/7.5 ML UDC GT SCH ×2 (09:49→17:53)
[2018-08-29] MEDS: MIDODRINE HCL (5MG) 5 MG TABLET GT SCH ×2 (09:50→20:03)
[2018-08-29] MEDS: HYDROGEN PEROXIDE 480 ML BOTTLE TP SCH ×2 (09:50→20:04)
[2018-08-29] MEDS: POLYVINYL ALCOHOL 15 ML BOTTLE OP SCH ×4 (09:50→20:03)
[2018-08-29] MEDS: GENTAMICIN OPTH SOLN 0.3% 5 ML BOTTLE LEFTEYE SCH ×2 (09:50→17:53)
[2018-08-29] MEDS: NEOMY SULF/BACITRAC ZN/POLY 15 GM TUBE TP SCH (09:51)
[2018-08-29] MEDS: BACI/NEOM/POLY B OINT PKT 1 UDPKT PACKET TP SCH ×2 (09:51→20:04)
[2018-08-29] MEDS: Z GUARD REMEDY 4 OZ OINT TP SCH ×2 (09:51→20:04)
[2018-08-29] MEDS: ZINC OXIDE 30 GM TUBE TP SCH ×2 (09:52→20:04)
[2018-08-29] MEDS: TWOCAL HN 1,000 ML LIQUID GT PRN (17:55)
[2018-08-29 19:56] VITALS: BP 133/68
[2018-08-29] MEDS: MULTIVIT W/MINERALS 1 TAB TABLET GT SCH (20:03)
[2018-08-29] MEDS: LANOLIN/MIN OIL/PETROLAT,WHT 3.5 GM TUBE EACHEYE SCH (21:41)
[2018-08-30] MEDS: IPRATROPIUM NEB FS 0.5 MG/2.5 ML AMPUL.NEB NEB SCH ×4 (01:21→19:46)
[2018-08-30] MEDS: OMEPRAZOLE 20 MG CAPSULE.DR GT SCH (05:31)
[2018-08-30] MEDS: BACLOFEN (10 MG) 10 MG TABLET GT SCH ×2 (05:31→18:13)
[2018-08-30 07:18] VITALS: BP 101/72
[2018-08-30] MEDS: MIDODRINE HCL (5MG) 5 MG TABLET GT SCH ×2 (09:00→20:19)
[2018-08-30] MEDS: Z GUARD REMEDY 4 OZ OINT TP SCH ×2 (09:00→20:20)
[2018-08-30] MEDS: POLYVINYL ALCOHOL 15 ML BOTTLE OP SCH ×4 (09:00→20:19)
[2018-08-30] MEDS: CARVEDILOL 3.125 MG TABLET GT SCH ×2 (09:00→20:18)
[2018-08-30] MEDS: ACIDOPHILUS/BULGARICUS 1 EACH TAB.CHEW GT SCH ×2 (09:00→17:00)
[2018-08-30] MEDS: SIMETHICONE SUSP 40 MG/0.6 ML BOTTLE GT SCH ×2 (09:00→20:19)
[2018-08-30] MEDS: GENTAMICIN OPTH SOLN 0.3% 5 ML BOTTLE LEFTEYE SCH (09:00)
[2018-08-30] MEDS: NEOMY SULF/BACITRAC ZN/POLY 15 GM TUBE TP SCH (09:00)
[2018-08-30] MEDS: HYDROGEN PEROXIDE 480 ML BOTTLE TP SCH ×2 (09:00→20:20)
[2018-08-30] MEDS: BACI/NEOM/POLY B OINT PKT 1 UDPKT PACKET TP SCH ×2 (09:00→20:20)
[2018-08-30] MEDS: FERROUS SULFATE - FOR SA ONLY 330 MG/7.5 ML UDC GT SCH ×2 (09:00→17:00)
[2018-08-30] MEDS: ZINC OXIDE 30 GM TUBE TP SCH (09:00)
[2018-08-30 20:03] VITALS: BP 94/49
[2018-08-30] MEDS: MULTIVIT W/MINERALS 1 TAB TABLET GT SCH (20:19)
[2018-08-30] MEDS: TWOCAL HN 1,000 ML LIQUID GT PRN (20:51)
[2018-08-30] MEDS: LANOLIN/MIN OIL/PETROLAT,WHT 3.5 GM TUBE EACHEYE SCH (21:48)
[2018-08-31] MEDS: IPRATROPIUM NEB FS 0.5 MG/2.5 ML AMPUL.NEB NEB SCH ×4 (01:48→19:31)
[2018-08-31] MEDS: BACLOFEN (10 MG) 10 MG TABLET GT SCH ×2 (05:54→17:02)
[2018-08-31] MEDS: OMEPRAZOLE 20 MG CAPSULE.DR GT SCH (05:55)
[2018-08-31 07:34] VITALS: BP 123/73
[2018-08-31] MEDS: HYDROGEN PEROXIDE 480 ML BOTTLE TP SCH ×2 (09:00→21:18)
[2018-08-31] MEDS: NEOMY SULF/BACITRAC ZN/POLY 15 GM TUBE TP SCH (09:00)
[2018-08-31] MEDS: BACI/NEOM/POLY B OINT PKT 1 UDPKT PACKET TP SCH (09:00)
[2018-08-31] MEDS: Z GUARD REMEDY 4 OZ OINT TP SCH ×2 (09:00→21:19)
[2018-08-31] MEDS: MIDODRINE HCL (5MG) 5 MG TABLET GT SCH ×2 (09:00→21:18)
[2018-08-31] MEDS: ACIDOPHILUS/BULGARICUS 1 EACH TAB.CHEW GT SCH ×2 (09:18→16:57)
[2018-08-31] MEDS: CARVEDILOL 3.125 MG TABLET GT SCH ×2 (09:18→21:18)
[2018-08-31] MEDS: SIMETHICONE SUSP 40 MG/0.6 ML BOTTLE GT SCH ×2 (09:18→21:18)
[2018-08-31] MEDS: FERROUS SULFATE - FOR SA ONLY 330 MG/7.5 ML UDC GT SCH ×2 (09:18→16:57)
[2018-08-31] MEDS: POLYVINYL ALCOHOL 15 ML BOTTLE OP SCH ×4 (09:19→21:18)
[2018-08-31 20:00] VITALS: BP 101/72
[2018-08-31] MEDS: MULTIVIT W/MINERALS 1 TAB TABLET GT SCH (21:18)
[2018-08-31] MEDS: LANOLIN/MIN OIL/PETROLAT,WHT 3.5 GM TUBE EACHEYE SCH (21:19)
[2018-09-01] MEDS: TWOCAL HN 1,000 ML LIQUID GT PRN (01:48)
[2018-09-01] MEDS: IPRATROPIUM NEB FS 0.5 MG/2.5 ML AMPUL.NEB NEB SCH ×4 (02:36→20:11)
[2018-09-01] MEDS: BACLOFEN (10 MG) 10 MG TABLET GT SCH ×2 (05:58→18:10)
[2018-09-01] MEDS: OMEPRAZOLE 20 MG CAPSULE.DR GT SCH (05:58)
[2018-09-01 07:44] VITALS: BP 128/89
[2018-09-01] MEDS: ACIDOPHILUS/BULGARICUS 1 EACH TAB.CHEW GT SCH ×2 (08:32→17:00)
[2018-09-01] MEDS: FERROUS SULFATE - FOR SA ONLY 330 MG/7.5 ML UDC GT SCH ×2 (08:32→17:00)
[2018-09-01] MEDS: CARVEDILOL 3.125 MG TABLET GT SCH ×2 (08:32→21:48)
[2018-09-01] MEDS: SIMETHICONE SUSP 40 MG/0.6 ML BOTTLE GT SCH ×2 (08:32→21:48)
[2018-09-01] MEDS: MIDODRINE HCL (5MG) 5 MG TABLET GT SCH ×2 (08:33→21:48)
[2018-09-01] MEDS: POLYVINYL ALCOHOL 15 ML BOTTLE OP SCH ×4 (08:34→21:48)
[2018-09-01] MEDS: Z GUARD REMEDY 4 OZ OINT TP SCH ×2 (09:00→21:48)
[2018-09-01] MEDS: HYDROGEN PEROXIDE 480 ML BOTTLE TP SCH ×2 (09:00→21:48)
[2018-09-01] MEDS: NEOMY SULF/BACITRAC ZN/POLY 15 GM TUBE TP SCH (09:00)
[2018-09-01 19:49] VITALS: BP 107/39
[2018-09-01 21:01] VITALS: BP 104/62
[2018-09-01] MEDS: MULTIVIT W/MINERALS 1 TAB TABLET GT SCH (21:48)
[2018-09-01] MEDS: LANOLIN/MIN OIL/PETROLAT,WHT 3.5 GM TUBE EACHEYE SCH (21:48)
[2018-09-02] MEDS: IPRATROPIUM NEB FS 0.5 MG/2.5 ML AMPUL.NEB NEB SCH ×4 (01:16→19:57)
[2018-09-02] MEDS: BACLOFEN (10 MG) 10 MG TABLET GT SCH ×2 (06:23→18:00)
[2018-09-02] MEDS: TWOCAL HN 1,000 ML LIQUID GT PRN (06:23)
[2018-09-02] MEDS: OMEPRAZOLE 20 MG CAPSULE.DR GT SCH (06:23)
[2018-09-02 07:38] VITALS: BP 101/77
[2018-09-02] MEDS: SIMETHICONE SUSP 40 MG/0.6 ML BOTTLE GT SCH ×2 (09:24→20:40)
[2018-09-02] MEDS: FERROUS SULFATE - FOR SA ONLY 330 MG/7.5 ML UDC GT SCH ×2 (09:24→17:00)
[2018-09-02] MEDS: ACIDOPHILUS/BULGARICUS 1 EACH TAB.CHEW GT SCH ×2 (09:24→17:00)
[2018-09-02] MEDS: CARVEDILOL 3.125 MG TABLET GT SCH ×2 (09:24→20:40)
[2018-09-02] MEDS: Z GUARD REMEDY 4 OZ OINT TP SCH ×2 (09:25→20:40)
[2018-09-02] MEDS: POLYVINYL ALCOHOL 15 ML BOTTLE OP SCH ×4 (09:25→20:40)
[2018-09-02] MEDS: NEOMY SULF/BACITRAC ZN/POLY 15 GM TUBE TP SCH (09:25)
[2018-09-02] MEDS: MIDODRINE HCL (5MG) 5 MG TABLET GT SCH ×2 (09:25→20:40)
[2018-09-02] MEDS: HYDROGEN PEROXIDE 480 ML BOTTLE TP SCH ×2 (09:25→20:40)
[2018-09-02 20:09] VITALS: BP 105/72
[2018-09-02] MEDS: MULTIVIT W/MINERALS 1 TAB TABLET GT SCH (20:40)
[2018-09-02] MEDS: LANOLIN/MIN OIL/PETROLAT,WHT 3.5 GM TUBE EACHEYE SCH (21:12)
[2018-09-03] MEDS: IPRATROPIUM NEB FS 0.5 MG/2.5 ML AMPUL.NEB NEB SCH ×4 (02:07→19:55)
[2018-09-03] MEDS: OMEPRAZOLE 20 MG CAPSULE.DR GT SCH (05:46)
[2018-09-03] MEDS: BACLOFEN (10 MG) 10 MG TABLET GT SCH ×2 (05:46→17:32)
[2018-09-03] MEDS: TWOCAL HN 1,000 ML LIQUID GT PRN (06:41)
[2018-09-03 07:20] VITALS: BP 107/70
[2018-09-03] MEDS: Z GUARD REMEDY 4 OZ OINT TP SCH ×2 (09:00→21:14)
[2018-09-03] MEDS: HYDROGEN PEROXIDE 480 ML BOTTLE TP SCH ×2 (09:00→21:13)
[2018-09-03] MEDS: POLYVINYL ALCOHOL 15 ML BOTTLE OP SCH ×4 (09:34→21:13)
[2018-09-03] MEDS: SIMETHICONE SUSP 40 MG/0.6 ML BOTTLE GT SCH ×2 (09:34→21:12)
[2018-09-03] MEDS: MIDODRINE HCL (5MG) 5 MG TABLET GT SCH ×2 (09:34→21:13)
[2018-09-03] MEDS: FERROUS SULFATE - FOR SA ONLY 330 MG/7.5 ML UDC GT SCH ×2 (09:34→17:32)
[2018-09-03] MEDS: CARVEDILOL 3.125 MG TABLET GT SCH ×2 (09:34→21:12)
[2018-09-03] MEDS: ACIDOPHILUS/BULGARICUS 1 EACH TAB.CHEW GT SCH ×2 (09:34→17:32)
[2018-09-03] MEDS: MULTIVIT W/MINERALS 1 TAB TABLET GT SCH (21:13)
[2018-09-03 21:14] VITALS: BP 96/63
[2018-09-03] MEDS: LANOLIN/MIN OIL/PETROLAT,WHT 3.5 GM TUBE EACHEYE SCH (21:14)
[2018-09-04] MEDS: IPRATROPIUM NEB FS 0.5 MG/2.5 ML AMPUL.NEB NEB SCH ×4 (01:07→19:44)
[2018-09-04] MEDS: BACLOFEN (10 MG) 10 MG TABLET GT SCH ×2 (06:25→17:28)
[2018-09-04] MEDS: OMEPRAZOLE 20 MG CAPSULE.DR GT SCH (06:25)
[2018-09-04 08:02] VITALS: BP 103/64
[2018-09-04] MEDS: Z GUARD REMEDY 4 OZ OINT TP SCH ×2 (09:50→20:38)
[2018-09-04] MEDS: POLYVINYL ALCOHOL 15 ML BOTTLE OP SCH ×4 (09:50→20:38)
[2018-09-04] MEDS: HYDROGEN PEROXIDE 480 ML BOTTLE TP SCH ×2 (09:50→20:38)
[2018-09-04] MEDS: MIDODRINE HCL (5MG) 5 MG TABLET GT SCH ×2 (09:50→20:37)
[2018-09-04] MEDS: CARVEDILOL 3.125 MG TABLET GT SCH ×2 (09:50→20:36)
[2018-09-04] MEDS: FERROUS SULFATE - FOR SA ONLY 330 MG/7.5 ML UDC GT SCH ×2 (09:50→17:28)
[2018-09-04] MEDS: SIMETHICONE SUSP 40 MG/0.6 ML BOTTLE GT SCH ×2 (09:50→20:36)
[2018-09-04] MEDS: ACIDOPHILUS/BULGARICUS 1 EACH TAB.CHEW GT SCH ×2 (09:50→17:28)
[2018-09-04] MEDS: TWOCAL HN 1,000 ML LIQUID GT PRN (19:13)
[2018-09-04 20:23] VITALS: BP 127/81
[2018-09-04] MEDS: MULTIVIT W/MINERALS 1 TAB TABLET GT SCH (20:38)
[2018-09-04] MEDS: LANOLIN/MIN OIL/PETROLAT,WHT 3.5 GM TUBE EACHEYE SCH (21:52)
[2018-09-05] MEDS: IPRATROPIUM NEB FS 0.5 MG/2.5 ML AMPUL.NEB NEB SCH ×4 (01:29→19:58)
[2018-09-05] MEDS: OMEPRAZOLE 20 MG CAPSULE.DR GT SCH (05:37)
[2018-09-05] MEDS: BACLOFEN (10 MG) 10 MG TABLET GT SCH ×2 (05:37→17:31)
[2018-09-05 07:41] VITALS: BP 128/84
[2018-09-05] MEDS: CARVEDILOL 3.125 MG TABLET GT SCH ×2 (08:43→20:29)
[2018-09-05] MEDS: SIMETHICONE SUSP 40 MG/0.6 ML BOTTLE GT SCH ×2 (08:44→20:29)
[2018-09-05] MEDS: FERROUS SULFATE - FOR SA ONLY 330 MG/7.5 ML UDC GT SCH ×2 (08:44→17:31)
[2018-09-05] MEDS: ACIDOPHILUS/BULGARICUS 1 EACH TAB.CHEW GT SCH ×2 (08:44→17:31)
[2018-09-05] MEDS: HYDROGEN PEROXIDE 480 ML BOTTLE TP SCH ×2 (08:48→20:31)
[2018-09-05] MEDS: POLYVINYL ALCOHOL 15 ML BOTTLE OP SCH ×4 (08:48→20:31)
[2018-09-05] MEDS: Z GUARD REMEDY 4 OZ OINT TP SCH ×2 (08:48→20:31)
[2018-09-05] MEDS: MIDODRINE HCL (5MG) 5 MG TABLET GT SCH ×2 (08:48→20:30)
[2018-09-05] MEDS: TWOCAL HN 1,000 ML LIQUID GT PRN (18:56)
[2018-09-05] MEDS: MULTIVIT W/MINERALS 1 TAB TABLET GT SCH (20:31)
[2018-09-05 20:38] VITALS: BP 99/73
[2018-09-05] MEDS: LANOLIN/MIN OIL/PETROLAT,WHT 3.5 GM TUBE EACHEYE SCH (21:25)
[2018-09-06] MEDS: IPRATROPIUM NEB FS 0.5 MG/2.5 ML AMPUL.NEB NEB SCH ×4 (01:14→20:08)
[2018-09-06] MEDS: OMEPRAZOLE 20 MG CAPSULE.DR GT SCH (06:03)
[2018-09-06] MEDS: BACLOFEN (10 MG) 10 MG TABLET GT SCH ×2 (06:03→17:28)
[2018-09-06 07:30] VITALS: BP 99/68
[2018-09-06] MEDS: ACIDOPHILUS/BULGARICUS 1 EACH TAB.CHEW GT SCH ×2 (09:35→17:28)
[2018-09-06] MEDS: FERROUS SULFATE - FOR SA ONLY 330 MG/7.5 ML UDC GT SCH ×2 (09:35→17:28)
[2018-09-06] MEDS: POLYVINYL ALCOHOL 15 ML BOTTLE OP SCH ×4 (09:35→20:33)
[2018-09-06] MEDS: HYDROGEN PEROXIDE 480 ML BOTTLE TP SCH ×2 (09:35→20:34)
[2018-09-06] MEDS: MIDODRINE HCL (5MG) 5 MG TABLET GT SCH ×2 (09:35→20:32)
[2018-09-06] MEDS: Z GUARD REMEDY 4 OZ OINT TP SCH ×2 (09:35→20:34)
[2018-09-06] MEDS: CARVEDILOL 3.125 MG TABLET GT SCH ×2 (09:35→20:31)
[2018-09-06] MEDS: SIMETHICONE SUSP 40 MG/0.6 ML BOTTLE GT SCH ×2 (09:35→20:32)
[2018-09-06] MEDS: MULTIVIT W/MINERALS 1 TAB TABLET GT SCH (20:33)
[2018-09-06 20:54] VITALS: BP 112/63
[2018-09-06] MEDS: LANOLIN/MIN OIL/PETROLAT,WHT 3.5 GM TUBE EACHEYE SCH (21:38)
[2018-09-06] MEDS: TWOCAL HN 1,000 ML LIQUID GT PRN (21:41)
[2018-09-07] MEDS: IPRATROPIUM NEB FS 0.5 MG/2.5 ML AMPUL.NEB NEB SCH ×4 (00:58→20:04)
[2018-09-07] MEDS: BACLOFEN (10 MG) 10 MG TABLET GT SCH ×2 (06:17→18:11)
[2018-09-07] MEDS: OMEPRAZOLE 20 MG CAPSULE.DR GT SCH (06:17)
[2018-09-07 08:02] VITALS: BP 114/63
[2018-09-07] MEDS: CARVEDILOL 3.125 MG TABLET GT SCH ×2 (09:55→21:43)
[2018-09-07] MEDS: FERROUS SULFATE - FOR SA ONLY 330 MG/7.5 ML UDC GT SCH ×2 (09:55→17:00)
[2018-09-07] MEDS: SIMETHICONE SUSP 40 MG/0.6 ML BOTTLE GT SCH ×2 (09:56→21:43)
[2018-09-07] MEDS: ACIDOPHILUS/BULGARICUS 1 EACH TAB.CHEW GT SCH ×2 (09:56→17:00)
[2018-09-07] MEDS: Z GUARD REMEDY 4 OZ OINT TP SCH ×2 (09:56→21:44)
[2018-09-07] MEDS: POLYVINYL ALCOHOL 15 ML BOTTLE OP SCH ×4 (09:56→21:43)
[2018-09-07] MEDS: HYDROGEN PEROXIDE 480 ML BOTTLE TP SCH ×2 (09:56→21:43)
[2018-09-07] MEDS: MIDODRINE HCL (5MG) 5 MG TABLET GT SCH ×2 (09:56→21:43)
[2018-09-07 20:23] VITALS: BP 98/70
[2018-09-07] MEDS: MULTIVIT W/MINERALS 1 TAB TABLET GT SCH (21:43)
[2018-09-07] MEDS: LANOLIN/MIN OIL/PETROLAT,WHT 3.5 GM TUBE EACHEYE SCH (21:44)
[2018-09-08] MEDS: IPRATROPIUM NEB FS 0.5 MG/2.5 ML AMPUL.NEB NEB SCH ×4 (02:20→20:01)
[2018-09-08] MEDS: OMEPRAZOLE 20 MG CAPSULE.DR GT SCH (05:58)
[2018-09-08] MEDS: BACLOFEN (10 MG) 10 MG TABLET GT SCH ×2 (05:58→17:17)
[2018-09-08] MEDS: TWOCAL HN 1,000 ML LIQUID GT PRN (06:00)
[2018-09-08 07:33] VITALS: BP 86/50
[2018-09-08] MEDS ORDERED: DIATR MEGLU/DIATRIZOATE SODIUM 30 ML BOTTLE (GASTROGRAPHIN) ONE (08:35)
[2018-09-08] MEDS: Z GUARD REMEDY 4 OZ OINT TP SCH ×2 (09:00→21:00)
[2018-09-08] MEDS: ACIDOPHILUS/BULGARICUS 1 EACH TAB.CHEW GT SCH ×2 (09:00→16:55)
[2018-09-08] MEDS: POLYVINYL ALCOHOL 15 ML BOTTLE OP SCH ×4 (09:00→21:00)
[2018-09-08] MEDS: SIMETHICONE SUSP 40 MG/0.6 ML BOTTLE GT SCH ×2 (09:00→20:59)
[2018-09-08] MEDS: CARVEDILOL 3.125 MG TABLET GT SCH ×2 (09:00→20:59)
[2018-09-08] MEDS: HYDROGEN PEROXIDE 480 ML BOTTLE TP SCH ×2 (09:00→21:00)
[2018-09-08] MEDS: FERROUS SULFATE - FOR SA ONLY 330 MG/7.5 ML UDC GT SCH ×2 (09:00→16:55)
[2018-09-08] MEDS: MIDODRINE HCL (5MG) 5 MG TABLET GT SCH ×2 (09:00→21:00)
[2018-09-08 20:47] VITALS: BP 100/48
[2018-09-08] MEDS: MULTIVIT W/MINERALS 1 TAB TABLET GT SCH (21:00)
[2018-09-08] MEDS: LANOLIN/MIN OIL/PETROLAT,WHT 3.5 GM TUBE EACHEYE SCH (21:00)
[2018-09-09] MEDS: IPRATROPIUM NEB FS 0.5 MG/2.5 ML AMPUL.NEB NEB SCH ×4 (01:41→19:55)
[2018-09-09] MEDS: OMEPRAZOLE 20 MG CAPSULE.DR GT SCH (05:56)
[2018-09-09] MEDS: BACLOFEN (10 MG) 10 MG TABLET GT SCH ×2 (05:56→17:47)
[2018-09-09 07:33] VITALS: BP 107/76
[2018-09-09 07:41] LABS: BASOPHILS % (AUTO) 0.5 % (0.0-2.0); EOSINOPHILS % (AUTO) 6.1 % (0.0-6.0); HEMATOCRIT 30 % (33-45); HEMOGLOBIN 9.4 g/dL (11.5-14.8); LYMPHOCYTES # (AUTO) 1.8 /CMM (0.8-4.8); LYMPHOCYTES % (AUTO) 49.3 % (20.0-44.0); MEAN CORPUSCULAR HGB CONC 32 g/dl (31.0-36.0); MEAN CORPUSCULAR VOLUME 81 fL (82-100); MONOCYTES # (AUTO) 0.3 /CMM (0.1-1.30); MONOCYTES % (AUTO) 8.5 % (2.0-12.0); NEUTROPHILS # (AUTO) 1.3 /CMM (1.8-8.9); NEUTROPHILS % (AUTO) 35.6 % (43.0-81.0); PLATELET COUNT (AUTO) 258 /CMM (150-450); RED BLOOD CELL COUNT(AUTO) 3.65 MIL/uL (4.0-5.2); WHITE BLOOD COUNT (AUTO) 3.6 K/uL (4.3-11.0)
[2018-09-09 07:51] LABS: CREATININE 0.5 mg/dL (0.6-1.3); MAGNESIUM 2.2 mg/dL (1.8-2.4); PHOSPHORUS 3.6 mg/dL (2.5-4.9); POTASSIUM 4.1 mmol/L (3.5-5.1)
[2018-09-09] MEDS: Z GUARD REMEDY 4 OZ OINT TP SCH ×2 (09:52→21:43)
[2018-09-09] MEDS: MIDODRINE HCL (5MG) 5 MG TABLET GT SCH ×2 (09:52→21:42)
[2018-09-09] MEDS: CARVEDILOL 3.125 MG TABLET GT SCH ×2 (09:52→21:42)
[2018-09-09] MEDS: SIMETHICONE SUSP 40 MG/0.6 ML BOTTLE GT SCH ×2 (09:52→21:42)
[2018-09-09] MEDS: POLYVINYL ALCOHOL 15 ML BOTTLE OP SCH ×4 (09:52→21:42)
[2018-09-09] MEDS: ACIDOPHILUS/BULGARICUS 1 EACH TAB.CHEW GT SCH ×2 (09:52→17:47)
[2018-09-09] MEDS: FERROUS SULFATE - FOR SA ONLY 330 MG/7.5 ML UDC GT SCH ×2 (09:52→17:47)
[2018-09-09] MEDS: HYDROGEN PEROXIDE 480 ML BOTTLE TP SCH ×2 (09:52→21:42)
[2018-09-09] MEDS: TWOCAL HN 1,000 ML LIQUID GT PRN (13:16)
[2018-09-09 19:53] VITALS: BP 97/62
[2018-09-09] MEDS: MULTIVIT W/MINERALS 1 TAB TABLET GT SCH (21:42)
[2018-09-09] MEDS: LANOLIN/MIN OIL/PETROLAT,WHT 3.5 GM TUBE EACHEYE SCH (21:43)
[2018-09-10] MEDS: IPRATROPIUM NEB FS 0.5 MG/2.5 ML AMPUL.NEB NEB SCH ×4 (02:18→19:51)
[2018-09-10] MEDS: OMEPRAZOLE 20 MG CAPSULE.DR GT SCH (05:48)
[2018-09-10] MEDS: BACLOFEN (10 MG) 10 MG TABLET GT SCH ×2 (05:48→18:18)
[2018-09-10 07:56] VITALS: BP 158/73
[2018-09-10] MEDS: FERROUS SULFATE - FOR SA ONLY 330 MG/7.5 ML UDC GT SCH ×2 (09:33→17:00)
[2018-09-10] MEDS: SIMETHICONE SUSP 40 MG/0.6 ML BOTTLE GT SCH ×2 (09:33→21:26)
[2018-09-10] MEDS: ACIDOPHILUS/BULGARICUS 1 EACH TAB.CHEW GT SCH ×2 (09:33→17:00)
[2018-09-10] MEDS: MIDODRINE HCL (5MG) 5 MG TABLET GT SCH ×2 (09:33→21:26)
[2018-09-10] MEDS: POLYVINYL ALCOHOL 15 ML BOTTLE OP SCH ×4 (09:33→21:26)
[2018-09-10] MEDS: CARVEDILOL 3.125 MG TABLET GT SCH ×2 (09:33→21:26)
[2018-09-10] MEDS: HYDROGEN PEROXIDE 480 ML BOTTLE TP SCH ×2 (09:34→21:26)
[2018-09-10] MEDS: Z GUARD REMEDY 4 OZ OINT TP SCH ×2 (09:34→21:26)
[2018-09-10] MEDS: TWOCAL HN 1,000 ML LIQUID GT PRN (18:18)
[2018-09-10 20:19] VITALS: BP 92/62
[2018-09-10] MEDS: LANOLIN/MIN OIL/PETROLAT,WHT 3.5 GM TUBE EACHEYE SCH (21:26)
[2018-09-10] MEDS: MULTIVIT W/MINERALS 1 TAB TABLET GT SCH (21:26)
[2018-09-11] MEDS: IPRATROPIUM NEB FS 0.5 MG/2.5 ML AMPUL.NEB NEB SCH ×4 (02:21→19:56)
[2018-09-11] MEDS: OMEPRAZOLE 20 MG CAPSULE.DR GT SCH (05:50)
[2018-09-11] MEDS: BACLOFEN (10 MG) 10 MG TABLET GT SCH ×2 (05:50→17:42)
[2018-09-11 07:35] VITALS: BP 127/56
[2018-09-11] MEDS: Z GUARD REMEDY 4 OZ OINT TP SCH ×2 (09:00→21:10)
[2018-09-11] MEDS: FERROUS SULFATE - FOR SA ONLY 330 MG/7.5 ML UDC GT SCH ×2 (09:00→17:41)
[2018-09-11] MEDS: SIMETHICONE SUSP 40 MG/0.6 ML BOTTLE GT SCH ×2 (09:00→21:09)
[2018-09-11] MEDS: MIDODRINE HCL (5MG) 5 MG TABLET GT SCH ×2 (09:00→21:09)
[2018-09-11] MEDS: CARVEDILOL 3.125 MG TABLET GT SCH ×2 (09:00→21:09)
[2018-09-11] MEDS: POLYVINYL ALCOHOL 15 ML BOTTLE OP SCH ×4 (09:00→21:10)
[2018-09-11] MEDS: ACIDOPHILUS/BULGARICUS 1 EACH TAB.CHEW GT SCH ×2 (09:00→17:41)
[2018-09-11] MEDS: HYDROGEN PEROXIDE 480 ML BOTTLE TP SCH ×2 (09:00→21:10)
[2018-09-11 20:00] VITALS: BP 98/59
[2018-09-11] MEDS: MULTIVIT W/MINERALS 1 TAB TABLET GT SCH (21:10)
[2018-09-11] MEDS: LANOLIN/MIN OIL/PETROLAT,WHT 3.5 GM TUBE EACHEYE SCH (21:10)
[2018-09-12] MEDS: IPRATROPIUM NEB FS 0.5 MG/2.5 ML AMPUL.NEB NEB SCH ×4 (01:37→19:28)
[2018-09-12] MEDS: OMEPRAZOLE 20 MG CAPSULE.DR GT SCH (06:12)
[2018-09-12] MEDS: BACLOFEN (10 MG) 10 MG TABLET GT SCH ×2 (06:12→18:11)
[2018-09-12 08:52] VITALS: BP 106/67
[2018-09-12] MEDS: FERROUS SULFATE - FOR SA ONLY 330 MG/7.5 ML UDC GT SCH ×2 (09:14→17:00)
[2018-09-12] MEDS: CARVEDILOL 3.125 MG TABLET GT SCH ×2 (09:14→21:00)
[2018-09-12] MEDS: SIMETHICONE SUSP 40 MG/0.6 ML BOTTLE GT SCH ×2 (09:14→21:19)
[2018-09-12] MEDS: ACIDOPHILUS/BULGARICUS 1 EACH TAB.CHEW GT SCH ×2 (09:14→17:00)
[2018-09-12] MEDS: POLYVINYL ALCOHOL 15 ML BOTTLE OP SCH ×4 (09:15→21:20)
[2018-09-12] MEDS: MIDODRINE HCL (5MG) 5 MG TABLET GT SCH ×2 (09:15→21:19)
[2018-09-12] MEDS: HYDROGEN PEROXIDE 480 ML BOTTLE TP SCH ×2 (09:15→21:20)
[2018-09-12] MEDS: Z GUARD REMEDY 4 OZ OINT TP SCH ×2 (09:15→21:20)
[2018-09-12 20:08] VITALS: BP 89/51
[2018-09-12] MEDS: MULTIVIT W/MINERALS 1 TAB TABLET GT SCH (21:20)
[2018-09-12] MEDS: LANOLIN/MIN OIL/PETROLAT,WHT 3.5 GM TUBE EACHEYE SCH (21:20)
[2018-09-13] MEDS: IPRATROPIUM NEB FS 0.5 MG/2.5 ML AMPUL.NEB NEB SCH ×4 (00:53→19:38)
[2018-09-13] MEDS: OMEPRAZOLE 20 MG CAPSULE.DR GT SCH (06:15)
[2018-09-13] MEDS: BACLOFEN (10 MG) 10 MG TABLET GT SCH ×2 (06:15→17:58)
[2018-09-13 07:40] VITALS: BP 106/63
[2018-09-13] MEDS: FERROUS SULFATE - FOR SA ONLY 330 MG/7.5 ML UDC GT SCH ×2 (09:00→17:58)
[2018-09-13] MEDS: MIDODRINE HCL (5MG) 5 MG TABLET GT SCH ×2 (09:00→21:27)
[2018-09-13] MEDS: SIMETHICONE SUSP 40 MG/0.6 ML BOTTLE GT SCH ×2 (09:00→21:27)
[2018-09-13] MEDS: CARVEDILOL 3.125 MG TABLET GT SCH ×2 (09:00→21:27)
[2018-09-13] MEDS: ACIDOPHILUS/BULGARICUS 1 EACH TAB.CHEW GT SCH ×2 (09:00→17:58)
[2018-09-13] MEDS: HYDROGEN PEROXIDE 480 ML BOTTLE TP SCH ×2 (09:00→21:28)
[2018-09-13] MEDS: Z GUARD REMEDY 4 OZ OINT TP SCH ×2 (09:00→21:28)
[2018-09-13] MEDS: POLYVINYL ALCOHOL 15 ML BOTTLE OP SCH ×4 (09:00→21:28)
[2018-09-13] MEDS: TWOCAL HN 1,000 ML LIQUID GT PRN (15:24)
[2018-09-13 21:11] VITALS: BP 97/69
[2018-09-13] MEDS: MULTIVIT W/MINERALS 1 TAB TABLET GT SCH (21:28)
[2018-09-13] MEDS: LANOLIN/MIN OIL/PETROLAT,WHT 3.5 GM TUBE EACHEYE SCH (21:28)
[2018-09-14] MEDS: IPRATROPIUM NEB FS 0.5 MG/2.5 ML AMPUL.NEB NEB SCH ×4 (01:09→19:58)
[2018-09-14] MEDS: OMEPRAZOLE 20 MG CAPSULE.DR GT SCH (06:21)
[2018-09-14] MEDS: BACLOFEN (10 MG) 10 MG TABLET GT SCH ×2 (06:21→17:04)
[2018-09-14 08:16] VITALS: BP 103/64
[2018-09-14] MEDS: CARVEDILOL 3.125 MG TABLET GT SCH ×2 (08:38→21:31)
[2018-09-14] MEDS: ACIDOPHILUS/BULGARICUS 1 EACH TAB.CHEW GT SCH ×2 (08:38→16:56)
[2018-09-14] MEDS: FERROUS SULFATE - FOR SA ONLY 330 MG/7.5 ML UDC GT SCH ×2 (08:38→16:56)
[2018-09-14] MEDS: SIMETHICONE SUSP 40 MG/0.6 ML BOTTLE GT SCH ×2 (08:38→21:31)
[2018-09-14] MEDS: POLYVINYL ALCOHOL 15 ML BOTTLE OP SCH ×4 (08:39→21:33)
[2018-09-14] MEDS: ACETAMINOPHEN 650 MG/20 ML UDC- SA PATIENTS-PAIN ONLY GT PRN (08:39)
[2018-09-14] MEDS: MIDODRINE HCL (5MG) 5 MG TABLET GT SCH ×2 (08:39→21:31)
[2018-09-14] MEDS: Z GUARD REMEDY 4 OZ OINT TP SCH ×2 (09:00→21:33)
[2018-09-14] MEDS: HYDROGEN PEROXIDE 480 ML BOTTLE TP SCH ×2 (09:00→21:33)
[2018-09-14] MEDS: TWOCAL HN 1,000 ML LIQUID GT PRN (17:04)
[2018-09-14 20:22] VITALS: BP 95/55
[2018-09-14] MEDS: LANOLIN/MIN OIL/PETROLAT,WHT 3.5 GM TUBE EACHEYE SCH (21:33)
[2018-09-14] MEDS: MULTIVIT W/MINERALS 1 TAB TABLET GT SCH (21:33)
[2018-09-15] MEDS: IPRATROPIUM NEB FS 0.5 MG/2.5 ML AMPUL.NEB NEB SCH ×4 (01:36→19:49)
[2018-09-15] MEDS: OMEPRAZOLE 20 MG CAPSULE.DR GT SCH (05:47)
[2018-09-15] MEDS: BACLOFEN (10 MG) 10 MG TABLET GT SCH ×2 (05:47→18:14)
[2018-09-15 07:52] VITALS: BP 101/59
[2018-09-15] MEDS: SIMETHICONE SUSP 40 MG/0.6 ML BOTTLE GT SCH ×2 (09:27→21:27)
[2018-09-15] MEDS: HYDROGEN PEROXIDE 480 ML BOTTLE TP SCH ×2 (09:27→21:28)
[2018-09-15] MEDS: POLYVINYL ALCOHOL 15 ML BOTTLE OP SCH ×4 (09:27→21:28)
[2018-09-15] MEDS: FERROUS SULFATE - FOR SA ONLY 330 MG/7.5 ML UDC GT SCH ×2 (09:27→17:00)
[2018-09-15] MEDS: CARVEDILOL 3.125 MG TABLET GT SCH ×2 (09:27→21:27)
[2018-09-15] MEDS: Z GUARD REMEDY 4 OZ OINT TP SCH ×2 (09:27→21:28)
[2018-09-15] MEDS: ACIDOPHILUS/BULGARICUS 1 EACH TAB.CHEW GT SCH ×2 (09:27→17:00)
[2018-09-15] MEDS: MIDODRINE HCL (5MG) 5 MG TABLET GT SCH ×2 (09:27→21:27)
[2018-09-15 19:56] VITALS: BP 118/73
[2018-09-15] MEDS: MULTIVIT W/MINERALS 1 TAB TABLET GT SCH (21:28)
[2018-09-15] MEDS: LANOLIN/MIN OIL/PETROLAT,WHT 3.5 GM TUBE EACHEYE SCH (21:29)
[2018-09-16] MEDS: TWOCAL HN 1,000 ML LIQUID GT PRN (00:12)
[2018-09-16] MEDS: IPRATROPIUM NEB FS 0.5 MG/2.5 ML AMPUL.NEB NEB SCH ×4 (00:50→20:04)
[2018-09-16] MEDS: BACLOFEN (10 MG) 10 MG TABLET GT SCH ×2 (06:30→17:58)
[2018-09-16] MEDS: OMEPRAZOLE 20 MG CAPSULE.DR GT SCH (06:30)
[2018-09-16 07:30] VITALS: BP 116/58
[2018-09-16] MEDS: FERROUS SULFATE - FOR SA ONLY 330 MG/7.5 ML UDC GT SCH ×2 (09:34→17:58)
[2018-09-16] MEDS: ACIDOPHILUS/BULGARICUS 1 EACH TAB.CHEW GT SCH ×2 (09:34→17:58)
[2018-09-16] MEDS: SIMETHICONE SUSP 40 MG/0.6 ML BOTTLE GT SCH ×2 (09:34→21:37)
[2018-09-16] MEDS: CARVEDILOL 3.125 MG TABLET GT SCH ×2 (09:34→21:37)
[2018-09-16] MEDS: POLYVINYL ALCOHOL 15 ML BOTTLE OP SCH ×4 (09:35→21:38)
[2018-09-16] MEDS: HYDROGEN PEROXIDE 480 ML BOTTLE TP SCH ×2 (09:35→21:38)
[2018-09-16] MEDS: Z GUARD REMEDY 4 OZ OINT TP SCH ×2 (09:35→21:38)
[2018-09-16] MEDS: MIDODRINE HCL (5MG) 5 MG TABLET GT SCH ×2 (09:35→21:37)
[2018-09-16] MEDS: MULTIVIT W/MINERALS 1 TAB TABLET GT SCH (21:37)
[2018-09-16] MEDS: LANOLIN/MIN OIL/PETROLAT,WHT 3.5 GM TUBE EACHEYE SCH (21:38)
[2018-09-17] MEDS: IPRATROPIUM NEB FS 0.5 MG/2.5 ML AMPUL.NEB NEB SCH ×4 (01:26→19:29)
[2018-09-17] MEDS: BACLOFEN (10 MG) 10 MG TABLET GT SCH ×2 (05:37→17:10)
[2018-09-17] MEDS: OMEPRAZOLE 20 MG CAPSULE.DR GT SCH (05:37)
[2018-09-17] MEDS: TWOCAL HN 1,000 ML LIQUID GT PRN (06:00)
[2018-09-17 07:32] VITALS: BP 108/57
[2018-09-17] MEDS: Z GUARD REMEDY 4 OZ OINT TP SCH ×2 (09:00→20:58)
[2018-09-17] MEDS: HYDROGEN PEROXIDE 480 ML BOTTLE TP SCH ×2 (09:00→20:58)
[2018-09-17] MEDS: CARVEDILOL 3.125 MG TABLET GT SCH ×2 (09:17→20:53)
[2018-09-17] MEDS: SIMETHICONE SUSP 40 MG/0.6 ML BOTTLE GT SCH ×2 (09:17→20:56)
[2018-09-17] MEDS: ACIDOPHILUS/BULGARICUS 1 EACH TAB.CHEW GT SCH ×2 (09:17→17:10)
[2018-09-17] MEDS: FERROUS SULFATE - FOR SA ONLY 330 MG/7.5 ML UDC GT SCH ×2 (09:17→17:10)
[2018-09-17] MEDS: POLYVINYL ALCOHOL 15 ML BOTTLE OP SCH ×4 (09:18→20:58)
[2018-09-17] MEDS: MIDODRINE HCL (5MG) 5 MG TABLET GT SCH ×2 (09:18→20:54)
[2018-09-17 20:00] VITALS: BP 95/54
[2018-09-17 20:54] VITALS: BP 95/54
[2018-09-17] MEDS: MULTIVIT W/MINERALS 1 TAB TABLET GT SCH (20:58)
[2018-09-17] MEDS: LANOLIN/MIN OIL/PETROLAT,WHT 3.5 GM TUBE EACHEYE SCH (21:00)
[2018-09-18] MEDS: IPRATROPIUM NEB FS 0.5 MG/2.5 ML AMPUL.NEB NEB SCH ×4 (01:27→19:45)
[2018-09-18] MEDS: BACLOFEN (10 MG) 10 MG TABLET GT SCH ×2 (06:00→17:26)
[2018-09-18] MEDS: OMEPRAZOLE 20 MG CAPSULE.DR GT SCH (06:00)
[2018-09-18] MEDS: TWOCAL HN 1,000 ML LIQUID GT PRN (07:02)
[2018-09-18 07:45] VITALS: BP 92/41
[2018-09-18 07:48] VITALS: BP 108/64
[2018-09-18] MEDS: CARVEDILOL 3.125 MG TABLET GT SCH ×2 (09:48→21:12)
[2018-09-18] MEDS: MIDODRINE HCL (5MG) 5 MG TABLET GT SCH ×2 (09:48→21:12)
[2018-09-18] MEDS: SIMETHICONE SUSP 40 MG/0.6 ML BOTTLE GT SCH ×2 (09:48→21:12)
[2018-09-18] MEDS: POLYVINYL ALCOHOL 15 ML BOTTLE OP SCH ×4 (09:48→21:12)
[2018-09-18] MEDS: Z GUARD REMEDY 4 OZ OINT TP SCH ×2 (09:48→21:12)
[2018-09-18] MEDS: FERROUS SULFATE - FOR SA ONLY 330 MG/7.5 ML UDC GT SCH ×2 (09:48→17:26)
[2018-09-18] MEDS: HYDROGEN PEROXIDE 480 ML BOTTLE TP SCH ×2 (09:48→21:12)
[2018-09-18] MEDS: ACIDOPHILUS/BULGARICUS 1 EACH TAB.CHEW GT SCH ×2 (09:48→17:26)
[2018-09-18 20:21] VITALS: BP 95/62
[2018-09-18] MEDS: LANOLIN/MIN OIL/PETROLAT,WHT 3.5 GM TUBE EACHEYE SCH (21:12)
[2018-09-18] MEDS: MULTIVIT W/MINERALS 1 TAB TABLET GT SCH (21:12)
[2018-09-19] MEDS: IPRATROPIUM NEB FS 0.5 MG/2.5 ML AMPUL.NEB NEB SCH ×4 (01:38→20:07)
[2018-09-19] MEDS: OMEPRAZOLE 20 MG CAPSULE.DR GT SCH (05:51)
[2018-09-19] MEDS: BACLOFEN (10 MG) 10 MG TABLET GT SCH ×2 (05:51→17:41)
[2018-09-19 07:55] VITALS: BP 91/49
[2018-09-19] MEDS: MIDODRINE HCL (5MG) 5 MG TABLET GT SCH ×2 (09:13→21:28)
[2018-09-19] MEDS: CARVEDILOL 3.125 MG TABLET GT SCH ×2 (09:13→21:28)
[2018-09-19] MEDS: POLYVINYL ALCOHOL 15 ML BOTTLE OP SCH ×4 (09:13→21:28)
[2018-09-19] MEDS: SIMETHICONE SUSP 40 MG/0.6 ML BOTTLE GT SCH ×2 (09:13→21:28)
[2018-09-19] MEDS: ACIDOPHILUS/BULGARICUS 1 EACH TAB.CHEW GT SCH ×2 (09:13→17:41)
[2018-09-19] MEDS: HYDROGEN PEROXIDE 480 ML BOTTLE TP SCH ×2 (09:13→21:29)
[2018-09-19] MEDS: FERROUS SULFATE - FOR SA ONLY 330 MG/7.5 ML UDC GT SCH ×2 (09:13→17:41)
[2018-09-19] MEDS: Z GUARD REMEDY 4 OZ OINT TP SCH ×2 (09:13→21:29)
[2018-09-19] MEDS: TWOCAL HN 1,000 ML LIQUID GT PRN (12:34)
[2018-09-19 19:42] VITALS: BP 97/63
[2018-09-19] MEDS: MULTIVIT W/MINERALS 1 TAB TABLET GT SCH (21:28)
[2018-09-19] MEDS: NEOMY SULF/BACITRAC ZN/POLY 15 GM TUBE TP SCH (21:29)
[2018-09-19] MEDS: LANOLIN/MIN OIL/PETROLAT,WHT 3.5 GM TUBE EACHEYE SCH (21:29)
[2018-09-20] MEDS: IPRATROPIUM NEB FS 0.5 MG/2.5 ML AMPUL.NEB NEB SCH ×4 (01:30→20:07)
[2018-09-20] MEDS: BACLOFEN (10 MG) 10 MG TABLET GT SCH ×2 (05:58→17:20)
[2018-09-20] MEDS: OMEPRAZOLE 20 MG CAPSULE.DR GT SCH (05:58)
[2018-09-20 07:40] VITALS: BP 92/59
[2018-09-20] MEDS: Z GUARD REMEDY 4 OZ OINT TP SCH ×2 (09:35→21:13)
[2018-09-20] MEDS: ACIDOPHILUS/BULGARICUS 1 EACH TAB.CHEW GT SCH ×2 (09:35→17:20)
[2018-09-20] MEDS: SIMETHICONE SUSP 40 MG/0.6 ML BOTTLE GT SCH ×2 (09:35→21:13)
[2018-09-20] MEDS: POLYVINYL ALCOHOL 15 ML BOTTLE OP SCH ×4 (09:35→21:13)
[2018-09-20] MEDS: FERROUS SULFATE - FOR SA ONLY 330 MG/7.5 ML UDC GT SCH ×2 (09:35→17:20)
[2018-09-20] MEDS: MIDODRINE HCL (5MG) 5 MG TABLET GT SCH ×2 (09:35→21:13)
[2018-09-20] MEDS: CARVEDILOL 3.125 MG TABLET GT SCH ×2 (09:35→21:13)
[2018-09-20] MEDS: HYDROGEN PEROXIDE 480 ML BOTTLE TP SCH ×2 (09:35→21:13)
[2018-09-20] MEDS: NEOMY SULF/BACITRAC ZN/POLY 15 GM TUBE TP SCH ×2 (09:35→21:13)
[2018-09-20 20:50] VITALS: BP 103/71
[2018-09-20] MEDS: MULTIVIT W/MINERALS 1 TAB TABLET GT SCH (21:13)
[2018-09-20] MEDS: LANOLIN/MIN OIL/PETROLAT,WHT 3.5 GM TUBE EACHEYE SCH (21:13)
[2018-09-21] MEDS: IPRATROPIUM NEB FS 0.5 MG/2.5 ML AMPUL.NEB NEB SCH ×4 (02:26→20:19)
[2018-09-21] MEDS: OMEPRAZOLE 20 MG CAPSULE.DR GT SCH (06:13)
[2018-09-21] MEDS: BACLOFEN (10 MG) 10 MG TABLET GT SCH ×2 (06:13→18:51)
[2018-09-21 07:50] VITALS: BP 122/50
[2018-09-21] MEDS: SIMETHICONE SUSP 40 MG/0.6 ML BOTTLE GT SCH ×2 (09:00→21:24)
[2018-09-21] MEDS: ACIDOPHILUS/BULGARICUS 1 EACH TAB.CHEW GT SCH ×2 (09:00→17:00)
[2018-09-21] MEDS: NEOMY SULF/BACITRAC ZN/POLY 15 GM TUBE TP SCH ×2 (09:00→21:25)
[2018-09-21] MEDS: HYDROGEN PEROXIDE 480 ML BOTTLE TP SCH ×2 (09:00→21:25)
[2018-09-21] MEDS: FERROUS SULFATE - FOR SA ONLY 330 MG/7.5 ML UDC GT SCH ×2 (09:00→17:00)
[2018-09-21] MEDS: CARVEDILOL 3.125 MG TABLET GT SCH ×2 (09:00→21:24)
[2018-09-21] MEDS: POLYVINYL ALCOHOL 15 ML BOTTLE OP SCH ×4 (09:00→21:25)
[2018-09-21] MEDS: Z GUARD REMEDY 4 OZ OINT TP SCH ×2 (09:00→21:25)
[2018-09-21] MEDS: MIDODRINE HCL (5MG) 5 MG TABLET GT SCH ×2 (09:00→21:24)
[2018-09-21 20:10] VITALS: BP 114/83
[2018-09-21] MEDS: MULTIVIT W/MINERALS 1 TAB TABLET GT SCH (21:24)
[2018-09-21] MEDS: LANOLIN/MIN OIL/PETROLAT,WHT 3.5 GM TUBE EACHEYE SCH (21:25)
[2018-09-21] MEDS: TWOCAL HN 1,000 ML LIQUID GT PRN (21:26)
[2018-09-22] MEDS: IPRATROPIUM NEB FS 0.5 MG/2.5 ML AMPUL.NEB NEB SCH ×4 (01:47→19:42)
[2018-09-22] MEDS: OMEPRAZOLE 20 MG CAPSULE.DR GT SCH (05:54)
[2018-09-22] MEDS: BACLOFEN (10 MG) 10 MG TABLET GT SCH ×2 (05:54→17:22)
[2018-09-22 07:52] VITALS: BP 101/54
[2018-09-22] MEDS: MIDODRINE HCL (5MG) 5 MG TABLET GT SCH ×2 (09:27→20:41)
[2018-09-22] MEDS: FERROUS SULFATE - FOR SA ONLY 330 MG/7.5 ML UDC GT SCH ×2 (09:27→17:22)
[2018-09-22] MEDS: HYDROGEN PEROXIDE 480 ML BOTTLE TP SCH ×2 (09:27→20:41)
[2018-09-22] MEDS: ACIDOPHILUS/BULGARICUS 1 EACH TAB.CHEW GT SCH ×2 (09:27→17:22)
[2018-09-22] MEDS: POLYVINYL ALCOHOL 15 ML BOTTLE OP SCH ×4 (09:27→20:41)
[2018-09-22] MEDS: CARVEDILOL 3.125 MG TABLET GT SCH ×2 (09:27→20:40)
[2018-09-22] MEDS: SIMETHICONE SUSP 40 MG/0.6 ML BOTTLE GT SCH ×2 (09:27→20:40)
[2018-09-22] MEDS: Z GUARD REMEDY 4 OZ OINT TP SCH ×2 (09:28→20:41)
[2018-09-22] MEDS: NEOMY SULF/BACITRAC ZN/POLY 15 GM TUBE TP SCH ×2 (09:28→20:41)
[2018-09-22 20:36] VITALS: BP 118/72
[2018-09-22] MEDS: MULTIVIT W/MINERALS 1 TAB TABLET GT SCH (20:41)
[2018-09-22] MEDS: LANOLIN/MIN OIL/PETROLAT,WHT 3.5 GM TUBE EACHEYE SCH (21:26)
[2018-09-23] MEDS: IPRATROPIUM NEB FS 0.5 MG/2.5 ML AMPUL.NEB NEB SCH ×4 (00:44→19:45)
[2018-09-23] MEDS: TWOCAL HN 1,000 ML LIQUID GT PRN (05:53)
[2018-09-23] MEDS: BACLOFEN (10 MG) 10 MG TABLET GT SCH ×2 (05:53→18:09)
[2018-09-23] MEDS: OMEPRAZOLE 20 MG CAPSULE.DR GT SCH (05:53)
[2018-09-23 08:00] VITALS: BP 94/51
[2018-09-23] MEDS: NEOMY SULF/BACITRAC ZN/POLY 15 GM TUBE TP SCH ×2 (09:00→20:34)
[2018-09-23] MEDS: Z GUARD REMEDY 4 OZ OINT TP SCH ×2 (09:00→20:34)
[2018-09-23] MEDS: CARVEDILOL 3.125 MG TABLET GT SCH ×2 (09:00→20:22)
[2018-09-23] MEDS: HYDROGEN PEROXIDE 480 ML BOTTLE TP SCH ×2 (09:00→20:33)
[2018-09-23] MEDS: FERROUS SULFATE - FOR SA ONLY 330 MG/7.5 ML UDC GT SCH ×2 (09:14→17:00)
[2018-09-23] MEDS: ACIDOPHILUS/BULGARICUS 1 EACH TAB.CHEW GT SCH ×2 (09:14→17:00)
[2018-09-23] MEDS: MIDODRINE HCL (5MG) 5 MG TABLET GT SCH ×2 (09:14→20:27)
[2018-09-23] MEDS: POLYVINYL ALCOHOL 15 ML BOTTLE OP SCH ×4 (09:14→20:31)
[2018-09-23] MEDS: SIMETHICONE SUSP 40 MG/0.6 ML BOTTLE GT SCH ×2 (09:14→20:25)
[2018-09-23 20:01] VITALS: BP 112/83
[2018-09-23] MEDS: MULTIVIT W/MINERALS 1 TAB TABLET GT SCH (20:30)
[2018-09-23] MEDS: LANOLIN/MIN OIL/PETROLAT,WHT 3.5 GM TUBE EACHEYE SCH (22:18)
[2018-09-24] MEDS: IPRATROPIUM NEB FS 0.5 MG/2.5 ML AMPUL.NEB NEB SCH ×4 (01:27→18:49)
[2018-09-24] MEDS: TWOCAL HN 1,000 ML LIQUID GT PRN (04:41)
[2018-09-24] MEDS: BACLOFEN (10 MG) 10 MG TABLET GT SCH ×2 (05:11→18:16)
[2018-09-24] MEDS: OMEPRAZOLE 20 MG CAPSULE.DR GT SCH (05:11)
[2018-09-24 07:31] VITALS: BP 139/69
[2018-09-24 08:00] VITALS: BP 139/69
[2018-09-24] MEDS: NEOMY SULF/BACITRAC ZN/POLY 15 GM TUBE TP SCH ×2 (09:00→20:39)
[2018-09-24] MEDS: POLYVINYL ALCOHOL 15 ML BOTTLE OP SCH ×4 (09:00→20:39)
[2018-09-24] MEDS: HYDROGEN PEROXIDE 480 ML BOTTLE TP SCH ×2 (09:00→20:39)
[2018-09-24] MEDS: MIDODRINE HCL (5MG) 5 MG TABLET GT SCH ×2 (09:00→20:39)
[2018-09-24] MEDS: Z GUARD REMEDY 4 OZ OINT TP SCH ×2 (09:00→20:39)
[2018-09-24] MEDS: SIMETHICONE SUSP 40 MG/0.6 ML BOTTLE GT SCH ×2 (09:00→20:39)
[2018-09-24] MEDS: ACIDOPHILUS/BULGARICUS 1 EACH TAB.CHEW GT SCH ×2 (09:00→17:00)
[2018-09-24] MEDS: FERROUS SULFATE - FOR SA ONLY 330 MG/7.5 ML UDC GT SCH ×2 (09:00→17:00)
[2018-09-24] MEDS: CARVEDILOL 3.125 MG TABLET GT SCH ×2 (09:58→20:38)
[2018-09-24 20:34] VITALS: BP 106/66
[2018-09-24] MEDS: MULTIVIT W/MINERALS 1 TAB TABLET GT SCH (20:39)
[2018-09-24] MEDS: LANOLIN/MIN OIL/PETROLAT,WHT 3.5 GM TUBE EACHEYE SCH (21:54)
[2018-09-24 22:14] VITALS: BP 106/66
[2018-09-25] MEDS: IPRATROPIUM NEB FS 0.5 MG/2.5 ML AMPUL.NEB NEB SCH ×4 (01:06→19:57)
[2018-09-25] MEDS: BACLOFEN (10 MG) 10 MG TABLET GT SCH ×2 (05:49→17:58)
[2018-09-25] MEDS: OMEPRAZOLE 20 MG CAPSULE.DR GT SCH (05:49)
[2018-09-25 07:33] VITALS: BP 89/52
[2018-09-25] MEDS: NEOMY SULF/BACITRAC ZN/POLY 15 GM TUBE TP SCH ×2 (09:00→21:37)
[2018-09-25] MEDS: HYDROGEN PEROXIDE 480 ML BOTTLE TP SCH ×2 (09:00→21:37)
[2018-09-25] MEDS: Z GUARD REMEDY 4 OZ OINT TP SCH ×2 (09:00→21:37)
[2018-09-25] MEDS: FERROUS SULFATE - FOR SA ONLY 330 MG/7.5 ML UDC GT SCH ×2 (09:22→17:57)
[2018-09-25] MEDS: ACIDOPHILUS/BULGARICUS 1 EACH TAB.CHEW GT SCH ×2 (09:22→17:57)
[2018-09-25] MEDS: SIMETHICONE SUSP 40 MG/0.6 ML BOTTLE GT SCH ×2 (09:23→21:36)
[2018-09-25] MEDS: POLYVINYL ALCOHOL 15 ML BOTTLE OP SCH ×4 (09:24→21:37)
[2018-09-25] MEDS: MIDODRINE HCL (5MG) 5 MG TABLET GT SCH ×2 (09:24→21:37)
[2018-09-25] MEDS: CARVEDILOL 3.125 MG TABLET GT SCH ×2 (09:58→21:36)
[2018-09-25 10:00] VITALS: BP 105/73
[2018-09-25] MEDS: TWOCAL HN 1,000 ML LIQUID GT PRN (15:29)
[2018-09-25 19:53] VITALS: BP 103/67
[2018-09-25] MEDS: MULTIVIT W/MINERALS 1 TAB TABLET GT SCH (21:37)
[2018-09-25] MEDS: LANOLIN/MIN OIL/PETROLAT,WHT 3.5 GM TUBE EACHEYE SCH (21:37)
[2018-09-25 22:00] VITALS: BP 103/67
[2018-09-26] MEDS: IPRATROPIUM NEB FS 0.5 MG/2.5 ML AMPUL.NEB NEB SCH ×4 (01:48→20:04)
[2018-09-26] MEDS: OMEPRAZOLE 20 MG CAPSULE.DR GT SCH (05:46)
[2018-09-26] MEDS: BACLOFEN (10 MG) 10 MG TABLET GT SCH ×2 (05:46→18:00)
[2018-09-26 08:49] VITALS: BP 85/54
[2018-09-26] MEDS: CARVEDILOL 3.125 MG TABLET GT SCH ×2 (09:00→20:48)
[2018-09-26] MEDS: HYDROGEN PEROXIDE 480 ML BOTTLE TP SCH ×2 (09:00→20:48)
[2018-09-26] MEDS: Z GUARD REMEDY 4 OZ OINT TP SCH ×2 (09:00→20:49)
[2018-09-26] MEDS: FERROUS SULFATE - FOR SA ONLY 330 MG/7.5 ML UDC GT SCH ×2 (09:00→16:28)
[2018-09-26] MEDS: NEOMY SULF/BACITRAC ZN/POLY 15 GM TUBE TP SCH ×2 (09:00→20:49)
[2018-09-26] MEDS: ACIDOPHILUS/BULGARICUS 1 EACH TAB.CHEW GT SCH ×2 (09:01→16:28)
[2018-09-26] MEDS: SIMETHICONE SUSP 40 MG/0.6 ML BOTTLE GT SCH ×2 (09:01→20:48)
[2018-09-26] MEDS: POLYVINYL ALCOHOL 15 ML BOTTLE OP SCH ×4 (09:03→20:48)
[2018-09-26] MEDS: MIDODRINE HCL (5MG) 5 MG TABLET GT SCH ×2 (09:05→20:48)
[2018-09-26 10:00] VITALS: BP 87/56
[2018-09-26] MEDS: TWOCAL HN 1,000 ML LIQUID GT PRN (16:53)
[2018-09-26 20:16] VITALS: BP 96/66
[2018-09-26] MEDS: MULTIVIT W/MINERALS 1 TAB TABLET GT SCH (20:48)
[2018-09-26 22:00] VITALS: BP 96/66
[2018-09-26] MEDS: LANOLIN/MIN OIL/PETROLAT,WHT 3.5 GM TUBE EACHEYE SCH (22:00)
[2018-09-27] MEDS: IPRATROPIUM NEB FS 0.5 MG/2.5 ML AMPUL.NEB NEB SCH ×4 (02:08→19:30)
[2018-09-27] MEDS: BACLOFEN (10 MG) 10 MG TABLET GT SCH ×2 (05:31→17:19)
[2018-09-27] MEDS: OMEPRAZOLE 20 MG CAPSULE.DR GT SCH (05:31)
[2018-09-27 07:26] VITALS: BP 105/72
[2018-09-27] MEDS: HYDROGEN PEROXIDE 480 ML BOTTLE TP SCH ×2 (09:26→20:33)
[2018-09-27] MEDS: FERROUS SULFATE - FOR SA ONLY 330 MG/7.5 ML UDC GT SCH ×2 (09:26→17:19)
[2018-09-27] MEDS: SIMETHICONE SUSP 40 MG/0.6 ML BOTTLE GT SCH ×2 (09:26→20:33)
[2018-09-27] MEDS: MIDODRINE HCL (5MG) 5 MG TABLET GT SCH ×2 (09:26→20:33)
[2018-09-27] MEDS: POLYVINYL ALCOHOL 15 ML BOTTLE OP SCH ×4 (09:26→20:33)
[2018-09-27] MEDS: Z GUARD REMEDY 4 OZ OINT TP SCH ×2 (09:26→20:34)
[2018-09-27] MEDS: CARVEDILOL 3.125 MG TABLET GT SCH ×2 (09:26→20:33)
[2018-09-27] MEDS: NEOMY SULF/BACITRAC ZN/POLY 15 GM TUBE TP SCH ×2 (09:26→20:34)
[2018-09-27] MEDS: ACIDOPHILUS/BULGARICUS 1 EACH TAB.CHEW GT SCH ×2 (09:26→17:19)
[2018-09-27 10:00] VITALS: BP 101/68
[2018-09-27 19:56] VITALS: BP 117/66
[2018-09-27] MEDS: MULTIVIT W/MINERALS 1 TAB TABLET GT SCH (20:33)
[2018-09-27] MEDS: LANOLIN/MIN OIL/PETROLAT,WHT 3.5 GM TUBE EACHEYE SCH (22:20)
[2018-09-27 22:44] VITALS: BP 117/66
[2018-09-28] MEDS: IPRATROPIUM NEB FS 0.5 MG/2.5 ML AMPUL.NEB NEB SCH ×4 (01:36→19:59)
[2018-09-28] MEDS: BACLOFEN (10 MG) 10 MG TABLET GT SCH ×2 (06:08→17:19)
[2018-09-28] MEDS: OMEPRAZOLE 20 MG CAPSULE.DR GT SCH (06:08)
[2018-09-28 07:31] VITALS: BP 127/68
[2018-09-28] MEDS: MIDODRINE HCL (5MG) 5 MG TABLET GT SCH ×2 (09:00→21:23)
[2018-09-28] MEDS: FERROUS SULFATE - FOR SA ONLY 330 MG/7.5 ML UDC GT SCH ×2 (09:53→17:19)
[2018-09-28] MEDS: CARVEDILOL 3.125 MG TABLET GT SCH ×2 (09:53→21:23)
[2018-09-28] MEDS: ACIDOPHILUS/BULGARICUS 1 EACH TAB.CHEW GT SCH ×2 (09:53→17:19)
[2018-09-28] MEDS: SIMETHICONE SUSP 40 MG/0.6 ML BOTTLE GT SCH ×2 (09:54→21:23)
[2018-09-28] MEDS: Z GUARD REMEDY 4 OZ OINT TP SCH ×2 (09:54→21:23)
[2018-09-28] MEDS: NEOMY SULF/BACITRAC ZN/POLY 15 GM TUBE TP SCH ×2 (09:54→21:23)
[2018-09-28] MEDS: HYDROGEN PEROXIDE 480 ML BOTTLE TP SCH ×2 (09:54→21:23)
[2018-09-28] MEDS: POLYVINYL ALCOHOL 15 ML BOTTLE OP SCH ×4 (09:54→21:23)
[2018-09-28 19:09] VITALS: BP 127/68
[2018-09-28 19:41] VITALS: BP 101/71
[2018-09-28] MEDS: MULTIVIT W/MINERALS 1 TAB TABLET GT SCH (21:23)
[2018-09-28] MEDS: LANOLIN/MIN OIL/PETROLAT,WHT 3.5 GM TUBE EACHEYE SCH (21:24)
[2018-09-28 22:15] VITALS: BP 110/7
[2018-09-28 22:17] VITALS: BP 110/70
[2018-09-29] MEDS: IPRATROPIUM NEB FS 0.5 MG/2.5 ML AMPUL.NEB NEB SCH ×4 (01:51→19:12)
[2018-09-29] MEDS: OMEPRAZOLE 20 MG CAPSULE.DR GT SCH (05:59)
[2018-09-29] MEDS: BACLOFEN (10 MG) 10 MG TABLET GT SCH ×2 (05:59→17:11)
[2018-09-29 07:44] VITALS: BP 103/78
[2018-09-29] MEDS: MIDODRINE HCL (5MG) 5 MG TABLET GT SCH ×2 (09:00→20:44)
[2018-09-29] MEDS: POLYVINYL ALCOHOL 15 ML BOTTLE OP SCH ×4 (09:00→20:44)
[2018-09-29] MEDS: HYDROGEN PEROXIDE 480 ML BOTTLE TP SCH ×2 (09:00→20:44)
[2018-09-29] MEDS: NEOMY SULF/BACITRAC ZN/POLY 15 GM TUBE TP SCH ×2 (09:00→20:44)
[2018-09-29] MEDS: Z GUARD REMEDY 4 OZ OINT TP SCH ×2 (09:00→20:44)
[2018-09-29] MEDS: ACIDOPHILUS/BULGARICUS 1 EACH TAB.CHEW GT SCH ×2 (09:59→17:11)
[2018-09-29] MEDS: FERROUS SULFATE - FOR SA ONLY 330 MG/7.5 ML UDC GT SCH ×2 (09:59→17:11)
[2018-09-29] MEDS: SIMETHICONE SUSP 40 MG/0.6 ML BOTTLE GT SCH ×2 (09:59→20:44)
[2018-09-29] MEDS: CARVEDILOL 3.125 MG TABLET GT SCH ×2 (10:00→20:44)
[2018-09-29 19:19] VITALS: BP 103/78
[2018-09-29 20:44] VITALS: BP 102/51
[2018-09-29] MEDS: MULTIVIT W/MINERALS 1 TAB TABLET GT SCH (20:44)
[2018-09-29] MEDS: LANOLIN/MIN OIL/PETROLAT,WHT 3.5 GM TUBE EACHEYE SCH (21:16)
[2018-09-30] MEDS: IPRATROPIUM NEB FS 0.5 MG/2.5 ML AMPUL.NEB NEB SCH ×4 (01:05→20:02)
[2018-09-30] MEDS: OMEPRAZOLE 20 MG CAPSULE.DR GT SCH (05:44)
[2018-09-30] MEDS: BACLOFEN (10 MG) 10 MG TABLET GT SCH ×2 (05:44→17:55)
[2018-09-30 06:20] VITALS: BP 112/56
[2018-09-30 08:08] VITALS: BP 95/44
[2018-09-30] MEDS: POLYVINYL ALCOHOL 15 ML BOTTLE OP SCH ×4 (09:00→20:45)
[2018-09-30] MEDS: SIMETHICONE SUSP 40 MG/0.6 ML BOTTLE GT SCH ×2 (09:00→20:45)
[2018-09-30] MEDS: CARVEDILOL 3.125 MG TABLET GT SCH ×2 (09:00→20:45)
[2018-09-30] MEDS: ACIDOPHILUS/BULGARICUS 1 EACH TAB.CHEW GT SCH ×2 (09:00→17:55)
[2018-09-30] MEDS: NEOMY SULF/BACITRAC ZN/POLY 15 GM TUBE TP SCH ×2 (09:00→20:45)
[2018-09-30] MEDS: FERROUS SULFATE - FOR SA ONLY 330 MG/7.5 ML UDC GT SCH ×2 (09:00→17:55)
[2018-09-30] MEDS: HYDROGEN PEROXIDE 480 ML BOTTLE TP SCH ×2 (09:00→20:45)
[2018-09-30] MEDS: MIDODRINE HCL (5MG) 5 MG TABLET GT SCH ×2 (09:00→20:45)
[2018-09-30] MEDS: Z GUARD REMEDY 4 OZ OINT TP SCH ×2 (09:00→20:45)
[2018-09-30 12:00] VITALS: BP 95/56
[2018-09-30] MEDS: TWOCAL HN 1,000 ML LIQUID GT PRN (13:29)
[2018-09-30 19:49] VITALS: BP 109/56
[2018-09-30] MEDS: MULTIVIT W/MINERALS 1 TAB TABLET GT SCH (20:45)
[2018-09-30] MEDS: LANOLIN/MIN OIL/PETROLAT,WHT 3.5 GM TUBE EACHEYE SCH (21:23)
[2018-10-01] MEDS: IPRATROPIUM NEB FS 0.5 MG/2.5 ML AMPUL.NEB NEB SCH ×4 (01:43→19:56)
[2018-10-01] MEDS: OMEPRAZOLE 20 MG CAPSULE.DR GT SCH (05:59)
[2018-10-01] MEDS: BACLOFEN (10 MG) 10 MG TABLET GT SCH ×2 (05:59→18:03)
[2018-10-01 07:39] VITALS: BP 106/79
[2018-10-01] MEDS: NEOMY SULF/BACITRAC ZN/POLY 15 GM TUBE TP SCH ×2 (09:00→20:20)
[2018-10-01] MEDS: MIDODRINE HCL (5MG) 5 MG TABLET GT SCH ×2 (09:00→20:20)
[2018-10-01] MEDS: Z GUARD REMEDY 4 OZ OINT TP SCH ×2 (09:00→20:20)
[2018-10-01] MEDS: HYDROGEN PEROXIDE 480 ML BOTTLE TP SCH ×2 (09:00→20:20)
[2018-10-01] MEDS: FERROUS SULFATE - FOR SA ONLY 330 MG/7.5 ML UDC GT SCH ×2 (09:26→17:00)
[2018-10-01] MEDS: ACIDOPHILUS/BULGARICUS 1 EACH TAB.CHEW GT SCH ×2 (09:27→17:00)
[2018-10-01] MEDS: POLYVINYL ALCOHOL 15 ML BOTTLE OP SCH ×4 (09:27→20:20)
[2018-10-01] MEDS: SIMETHICONE SUSP 40 MG/0.6 ML BOTTLE GT SCH ×2 (09:27→20:20)
[2018-10-01] MEDS: CARVEDILOL 3.125 MG TABLET GT SCH ×2 (09:45→20:20)
[2018-10-01] MEDS: TWOCAL HN 1,000 ML LIQUID GT PRN (18:49)
[2018-10-01 19:42] VITALS: BP 102/54
[2018-10-01] MEDS: MULTIVIT W/MINERALS 1 TAB TABLET GT SCH (20:20)
[2018-10-01] MEDS: LANOLIN/MIN OIL/PETROLAT,WHT 3.5 GM TUBE EACHEYE SCH (21:37)
[2018-10-02] MEDS: IPRATROPIUM NEB FS 0.5 MG/2.5 ML AMPUL.NEB NEB SCH ×4 (01:47→20:00)
[2018-10-02] MEDS: BACLOFEN (10 MG) 10 MG TABLET GT SCH ×2 (05:41→17:13)
[2018-10-02] MEDS: OMEPRAZOLE 20 MG CAPSULE.DR GT SCH (05:41)
[2018-10-02 07:25] VITALS: BP 101/55
[2018-10-02] MEDS: FERROUS SULFATE - FOR SA ONLY 330 MG/7.5 ML UDC GT SCH ×2 (09:37→17:13)
[2018-10-02] MEDS: POLYVINYL ALCOHOL 15 ML BOTTLE OP SCH ×4 (09:37→20:31)
[2018-10-02] MEDS: HYDROGEN PEROXIDE 480 ML BOTTLE TP SCH ×2 (09:37→20:31)
[2018-10-02] MEDS: CARVEDILOL 3.125 MG TABLET GT SCH ×2 (09:37→20:31)
[2018-10-02] MEDS: SIMETHICONE SUSP 40 MG/0.6 ML BOTTLE GT SCH ×2 (09:37→20:36)
[2018-10-02] MEDS: MIDODRINE HCL (5MG) 5 MG TABLET GT SCH ×2 (09:37→20:31)
[2018-10-02] MEDS: ACIDOPHILUS/BULGARICUS 1 EACH TAB.CHEW GT SCH ×2 (09:37→17:13)
[2018-10-02] MEDS: Z GUARD REMEDY 4 OZ OINT TP SCH ×2 (09:38→20:32)
[2018-10-02] MEDS: NEOMY SULF/BACITRAC ZN/POLY 15 GM TUBE TP SCH ×2 (09:38→20:32)
[2018-10-02 15:52] VITALS: BP 115/60
[2018-10-02 20:22] VITALS: BP 104/58
[2018-10-02] MEDS: MULTIVIT W/MINERALS 1 TAB TABLET GT SCH (20:31)
[2018-10-02] MEDS: TWOCAL HN 1,000 ML LIQUID GT PRN (20:32)
[2018-10-02 22:00] VITALS: BP 108/58
[2018-10-02] MEDS: LANOLIN/MIN OIL/PETROLAT,WHT 3.5 GM TUBE EACHEYE SCH (22:31)
[2018-10-03] MEDS: IPRATROPIUM NEB FS 0.5 MG/2.5 ML AMPUL.NEB NEB SCH ×4 (01:35→19:25)
[2018-10-03] MEDS: BACLOFEN (10 MG) 10 MG TABLET GT SCH ×2 (06:19→18:01)
[2018-10-03] MEDS: OMEPRAZOLE 20 MG CAPSULE.DR GT SCH (06:19)
[2018-10-03 07:40] VITALS: BP 88/48
[2018-10-03] MEDS: CARVEDILOL 3.125 MG TABLET GT SCH ×2 (08:34→21:10)
[2018-10-03] MEDS: SIMETHICONE SUSP 40 MG/0.6 ML BOTTLE GT SCH ×2 (08:35→21:10)
[2018-10-03] MEDS: MIDODRINE HCL (5MG) 5 MG TABLET GT SCH ×2 (08:35→21:10)
[2018-10-03] MEDS: ACIDOPHILUS/BULGARICUS 1 EACH TAB.CHEW GT SCH ×2 (08:35→17:00)
[2018-10-03] MEDS: POLYVINYL ALCOHOL 15 ML BOTTLE OP SCH ×4 (08:35→21:11)
[2018-10-03] MEDS: FERROUS SULFATE - FOR SA ONLY 330 MG/7.5 ML UDC GT SCH ×2 (08:35→17:00)
[2018-10-03] MEDS: HYDROGEN PEROXIDE 480 ML BOTTLE TP SCH ×2 (09:00→21:11)
[2018-10-03] MEDS: Z GUARD REMEDY 4 OZ OINT TP SCH ×2 (09:00→21:11)
[2018-10-03] MEDS: NEOMY SULF/BACITRAC ZN/POLY 15 GM TUBE TP SCH (09:00)
[2018-10-03 12:00] VITALS: BP 108/60
[2018-10-03 18:58] VITALS: BP 102/53
[2018-10-03 20:01] VITALS: BP 103/62
[2018-10-03] MEDS: LANOLIN/MIN OIL/PETROLAT,WHT 3.5 GM TUBE EACHEYE SCH (21:11)
[2018-10-03] MEDS: MULTIVIT W/MINERALS 1 TAB TABLET GT SCH (21:11)
[2018-10-03 22:43] VITALS: BP 103/62
[2018-10-04] MEDS: IPRATROPIUM NEB FS 0.5 MG/2.5 ML AMPUL.NEB NEB SCH ×4 (02:20→20:09)
[2018-10-04] MEDS: BACLOFEN (10 MG) 10 MG TABLET GT SCH ×2 (06:06→17:44)
[2018-10-04] MEDS: OMEPRAZOLE 20 MG CAPSULE.DR GT SCH (06:06)
[2018-10-04 07:37] VITALS: BP 154/69
[2018-10-04] MEDS: MIDODRINE HCL (5MG) 5 MG TABLET GT SCH ×2 (09:00→21:15)
[2018-10-04] MEDS: Z GUARD REMEDY 4 OZ OINT TP SCH ×2 (09:00→21:15)
[2018-10-04] MEDS: HYDROGEN PEROXIDE 480 ML BOTTLE TP SCH ×2 (09:00→21:15)
[2018-10-04] MEDS: FERROUS SULFATE - FOR SA ONLY 330 MG/7.5 ML UDC GT SCH ×2 (09:02→17:43)
[2018-10-04] MEDS: SIMETHICONE SUSP 40 MG/0.6 ML BOTTLE GT SCH ×2 (09:02→21:15)
[2018-10-04] MEDS: POLYVINYL ALCOHOL 15 ML BOTTLE OP SCH ×4 (09:02→21:15)
[2018-10-04] MEDS: CARVEDILOL 3.125 MG TABLET GT SCH ×2 (09:02→21:15)
[2018-10-04] MEDS: ACIDOPHILUS/BULGARICUS 1 EACH TAB.CHEW GT SCH ×2 (09:02→17:44)
[2018-10-04 10:00] VITALS: BP 154/69
[2018-10-04] MEDS: TWOCAL HN 1,000 ML LIQUID GT PRN (11:02)
[2018-10-04 19:40] VITALS: BP 114/66
[2018-10-04] MEDS: MULTIVIT W/MINERALS 1 TAB TABLET GT SCH (21:15)
[2018-10-04] MEDS: LANOLIN/MIN OIL/PETROLAT,WHT 3.5 GM TUBE EACHEYE SCH (21:16)
[2018-10-04 22:46] VITALS: BP 116/60
[2018-10-05] MEDS: IPRATROPIUM NEB FS 0.5 MG/2.5 ML AMPUL.NEB NEB SCH ×4 (01:47→20:03)
[2018-10-05] MEDS: BACLOFEN (10 MG) 10 MG TABLET GT SCH ×2 (05:42→17:51)
[2018-10-05] MEDS: OMEPRAZOLE 20 MG CAPSULE.DR GT SCH (05:42)
[2018-10-05 07:33] VITALS: BP 99/70
[2018-10-05] MEDS: SIMETHICONE SUSP 40 MG/0.6 ML BOTTLE GT SCH ×2 (09:58→21:22)
[2018-10-05] MEDS: CARVEDILOL 3.125 MG TABLET GT SCH ×2 (09:58→21:22)
[2018-10-05] MEDS: ACIDOPHILUS/BULGARICUS 1 EACH TAB.CHEW GT SCH ×2 (09:58→17:51)
[2018-10-05] MEDS: FERROUS SULFATE - FOR SA ONLY 330 MG/7.5 ML UDC GT SCH ×2 (09:58→17:51)
[2018-10-05] MEDS: Z GUARD REMEDY 4 OZ OINT TP SCH ×2 (09:59→21:23)
[2018-10-05] MEDS: MIDODRINE HCL (5MG) 5 MG TABLET GT SCH ×2 (09:59→21:23)
[2018-10-05] MEDS: POLYVINYL ALCOHOL 15 ML BOTTLE OP SCH ×4 (09:59→21:23)
[2018-10-05] MEDS: HYDROGEN PEROXIDE 480 ML BOTTLE TP SCH ×2 (09:59→21:23)
[2018-10-05 18:30] VITALS: BP 99/70
[2018-10-05] MEDS: CEFTRIAXONE 1 G in IV D5W 50 ML IV SCH (21:00)
[2018-10-05] MEDS: LANOLIN/MIN OIL/PETROLAT,WHT 3.5 GM TUBE EACHEYE SCH (21:23)
[2018-10-05] MEDS: MULTIVIT W/MINERALS 1 TAB TABLET GT SCH (21:23)
[2018-10-05] MEDS: VANCOMYCIN 1.25 GM in IV D5W 500 ML IV SCH (22:01)
[2018-10-05 22:36] VITALS: BP 100/60
[2018-10-06 01:10] VITALS: BP 95/69
[2018-10-06] MEDS: IPRATROPIUM NEB FS 0.5 MG/2.5 ML AMPUL.NEB NEB SCH ×4 (02:17→20:21)
[2018-10-06] MEDS: OMEPRAZOLE 20 MG CAPSULE.DR GT SCH (05:52)
[2018-10-06] MEDS: BACLOFEN (10 MG) 10 MG TABLET GT SCH ×2 (05:52→17:40)
[2018-10-06 07:38] VITALS: BP 94/51
[2018-10-06] MEDS: FERROUS SULFATE - FOR SA ONLY 330 MG/7.5 ML UDC GT SCH ×2 (09:58→17:40)
[2018-10-06] MEDS: ACIDOPHILUS/BULGARICUS 1 EACH TAB.CHEW GT SCH ×2 (09:58→17:40)
[2018-10-06] MEDS: SIMETHICONE SUSP 40 MG/0.6 ML BOTTLE GT SCH ×2 (09:58→21:31)
[2018-10-06] MEDS: HYDROGEN PEROXIDE 480 ML BOTTLE TP SCH ×2 (09:58→21:32)
[2018-10-06] MEDS: Z GUARD REMEDY 4 OZ OINT TP SCH ×2 (09:58→21:32)
[2018-10-06] MEDS: MIDODRINE HCL (5MG) 5 MG TABLET GT SCH ×2 (09:58→21:32)
[2018-10-06] MEDS: POLYVINYL ALCOHOL 15 ML BOTTLE OP SCH ×4 (09:58→21:32)
[2018-10-06] MEDS: CARVEDILOL 3.125 MG TABLET GT SCH ×2 (09:59→21:31)
[2018-10-06] MEDS: TWOCAL HN 1,000 ML LIQUID GT PRN (17:41)
[2018-10-06 18:43] VITALS: BP 102/60
[2018-10-06] MEDS: CEFTRIAXONE 1 G in IV D5W 50 ML IV SCH (21:00)
[2018-10-06 21:05] VITALS: BP 101/61
[2018-10-06] MEDS: LANOLIN/MIN OIL/PETROLAT,WHT 3.5 GM TUBE EACHEYE SCH (21:32)
[2018-10-06] MEDS: MULTIVIT W/MINERALS 1 TAB TABLET GT SCH (21:32)
[2018-10-06 22:00] VITALS: BP 115/88
[2018-10-06] MEDS: VANCOMYCIN 1.25 GM in IV D5W 500 ML IV SCH (22:27)
[2018-10-07] MEDS: TWOCAL HN 1,000 ML LIQUID GT PRN (00:21)
[2018-10-07] MEDS: IPRATROPIUM NEB FS 0.5 MG/2.5 ML AMPUL.NEB NEB SCH ×4 (01:51→19:36)
[2018-10-07] MEDS: OMEPRAZOLE 20 MG CAPSULE.DR GT SCH (06:24)
[2018-10-07] MEDS: BACLOFEN (10 MG) 10 MG TABLET GT SCH ×2 (06:24→17:48)
[2018-10-07 07:33] VITALS: BP 92/48
[2018-10-07] MEDS: MIDODRINE HCL (5MG) 5 MG TABLET GT SCH ×2 (09:38→21:02)
[2018-10-07] MEDS: ACIDOPHILUS/BULGARICUS 1 EACH TAB.CHEW GT SCH ×2 (09:38→17:48)
[2018-10-07] MEDS: POLYVINYL ALCOHOL 15 ML BOTTLE OP SCH ×4 (09:38→21:02)
[2018-10-07] MEDS: FERROUS SULFATE - FOR SA ONLY 330 MG/7.5 ML UDC GT SCH ×2 (09:38→17:48)
[2018-10-07] MEDS: SIMETHICONE SUSP 40 MG/0.6 ML BOTTLE GT SCH ×2 (09:38→21:01)
[2018-10-07] MEDS: CARVEDILOL 3.125 MG TABLET GT SCH ×2 (09:38→21:01)
[2018-10-07] MEDS: HYDROGEN PEROXIDE 480 ML BOTTLE TP SCH ×2 (09:39→21:02)
[2018-10-07] MEDS: Z GUARD REMEDY 4 OZ OINT TP SCH ×2 (09:39→21:02)
[2018-10-07 13:20] VITALS: BP 98/59
[2018-10-07 19:32] VITALS: BP 107/61
[2018-10-07] MEDS: CEFTRIAXONE 1 G in IV D5W 50 ML IV SCH (20:47)
[2018-10-07] MEDS: MULTIVIT W/MINERALS 1 TAB TABLET GT SCH (21:02)
[2018-10-07] MEDS: LANOLIN/MIN OIL/PETROLAT,WHT 3.5 GM TUBE EACHEYE SCH (21:02)
[2018-10-07 22:00] VITALS: BP 106/62
[2018-10-07] MEDS: VANCOMYCIN 1.25 GM in IV D5W 500 ML IV SCH (22:06)
[2018-10-08] MEDS: IPRATROPIUM NEB FS 0.5 MG/2.5 ML AMPUL.NEB NEB SCH ×4 (01:37→20:02)
[2018-10-08] MEDS: TWOCAL HN 1,000 ML LIQUID GT PRN (05:37)
[2018-10-08] MEDS: OMEPRAZOLE 20 MG CAPSULE.DR GT SCH (06:02)
[2018-10-08] MEDS: BACLOFEN (10 MG) 10 MG TABLET GT SCH ×2 (06:02→17:29)
[2018-10-08] MEDS: HYDROGEN PEROXIDE 480 ML BOTTLE TP SCH ×2 (09:00→21:58)
[2018-10-08] MEDS: Z GUARD REMEDY 4 OZ OINT TP SCH ×2 (09:00→21:58)
[2018-10-08] MEDS: POLYVINYL ALCOHOL 15 ML BOTTLE OP SCH ×4 (09:26→21:58)
[2018-10-08] MEDS: CARVEDILOL 3.125 MG TABLET GT SCH ×2 (09:26→21:00)
[2018-10-08] MEDS: MIDODRINE HCL (5MG) 5 MG TABLET GT SCH ×2 (09:26→21:00)
[2018-10-08] MEDS: SIMETHICONE SUSP 40 MG/0.6 ML BOTTLE GT SCH ×2 (09:26→21:59)
[2018-10-08] MEDS: ACIDOPHILUS/BULGARICUS 1 EACH TAB.CHEW GT SCH ×2 (09:26→17:28)
[2018-10-08] MEDS: FERROUS SULFATE - FOR SA ONLY 330 MG/7.5 ML UDC GT SCH ×2 (09:26→17:28)
[2018-10-08 14:02] VITALS: BP 100/60
[2018-10-08 15:09] VITALS: BP 99/48
[2018-10-08 19:29] VITALS: BP 99/70
[2018-10-08] MEDS: MULTIVIT W/MINERALS 1 TAB TABLET GT SCH (21:00)
[2018-10-08] MEDS: CEFTRIAXONE 1 G in IV D5W 50 ML IV SCH (21:58)
[2018-10-08] MEDS: LANOLIN/MIN OIL/PETROLAT,WHT 3.5 GM TUBE EACHEYE SCH (21:59)
[2018-10-08] MEDS: VANCOMYCIN 1.25 GM in IV D5W 500 ML IV SCH (22:02)
[2018-10-09 00:54] VITALS: BP 99/70
[2018-10-09] MEDS: IPRATROPIUM NEB FS 0.5 MG/2.5 ML AMPUL.NEB NEB SCH ×4 (01:49→20:03)
[2018-10-09] MEDS: OMEPRAZOLE 20 MG CAPSULE.DR GT SCH (05:58)
[2018-10-09] MEDS: TWOCAL HN 1,000 ML LIQUID GT PRN (05:58)
[2018-10-09] MEDS: BACLOFEN (10 MG) 10 MG TABLET GT SCH ×2 (05:58→18:05)
[2018-10-09 07:58] VITALS: BP 107/70
[2018-10-09] MEDS: MIDODRINE HCL (5MG) 5 MG TABLET GT SCH ×2 (09:29→20:45)
[2018-10-09] MEDS: ACIDOPHILUS/BULGARICUS 1 EACH TAB.CHEW GT SCH ×2 (09:29→16:56)
[2018-10-09] MEDS: SIMETHICONE SUSP 40 MG/0.6 ML BOTTLE GT SCH ×2 (09:29→20:44)
[2018-10-09] MEDS: FERROUS SULFATE - FOR SA ONLY 330 MG/7.5 ML UDC GT SCH ×2 (09:29→16:56)
[2018-10-09] MEDS: POLYVINYL ALCOHOL 15 ML BOTTLE OP SCH ×4 (09:29→20:47)
[2018-10-09] MEDS: CARVEDILOL 3.125 MG TABLET GT SCH ×2 (09:29→20:43)
[2018-10-09] MEDS: Z GUARD REMEDY 4 OZ OINT TP SCH ×2 (09:30→20:47)
[2018-10-09] MEDS: HYDROGEN PEROXIDE 480 ML BOTTLE TP SCH ×2 (09:30→20:47)
[2018-10-09 14:50] VITALS: BP 105/73
[2018-10-09 20:33] VITALS: BP 128/71
[2018-10-09 20:34] VITALS: BP 131/74
[2018-10-09] MEDS: MULTIVIT W/MINERALS 1 TAB TABLET GT SCH (20:46)
[2018-10-09] MEDS: CEFTRIAXONE 1 G in IV D5W 50 ML IV SCH (21:00)
[2018-10-09] MEDS: LANOLIN/MIN OIL/PETROLAT,WHT 3.5 GM TUBE EACHEYE SCH (22:00)
[2018-10-09] MEDS: VANCOMYCIN 1.25 GM in IV D5W 500 ML IV SCH (22:09)
[2018-10-09 22:13] VITALS: BP 128/71
[2018-10-10] MEDS: IPRATROPIUM NEB FS 0.5 MG/2.5 ML AMPUL.NEB NEB SCH ×4 (01:43→19:36)
[2018-10-10] MEDS: BACLOFEN (10 MG) 10 MG TABLET GT SCH ×2 (05:38→17:03)
[2018-10-10] MEDS: OMEPRAZOLE 20 MG CAPSULE.DR GT SCH (05:38)
[2018-10-10 07:34] VITALS: BP 101/53
[2018-10-10] MEDS: FERROUS SULFATE - FOR SA ONLY 330 MG/7.5 ML UDC GT SCH ×2 (08:50→17:03)
[2018-10-10] MEDS: CARVEDILOL 3.125 MG TABLET GT SCH ×2 (08:50→20:35)
[2018-10-10] MEDS: ACIDOPHILUS/BULGARICUS 1 EACH TAB.CHEW GT SCH ×2 (08:50→17:03)
[2018-10-10] MEDS: SIMETHICONE SUSP 40 MG/0.6 ML BOTTLE GT SCH ×2 (08:50→20:36)
[2018-10-10] MEDS: POLYVINYL ALCOHOL 15 ML BOTTLE OP SCH ×4 (08:51→20:40)
[2018-10-10] MEDS: MIDODRINE HCL (5MG) 5 MG TABLET GT SCH ×2 (08:51→20:37)
[2018-10-10] MEDS: HYDROGEN PEROXIDE 480 ML BOTTLE TP SCH ×2 (09:00→20:40)
[2018-10-10] MEDS: Z GUARD REMEDY 4 OZ OINT TP SCH ×2 (09:00→20:41)
[2018-10-10 10:00] VITALS: BP 128/71
[2018-10-10] MEDS: TWOCAL HN 1,000 ML LIQUID GT PRN (11:56)
[2018-10-10 20:22] VITALS: BP 105/75
[2018-10-10] MEDS: MULTIVIT W/MINERALS 1 TAB TABLET GT SCH (20:40)
[2018-10-10] MEDS: VANCOMYCIN 1.25 GM in IV D5W 500 ML IV SCH (21:31)
[2018-10-10] MEDS: CEFTRIAXONE 1 G in IV D5W 50 ML IV SCH (21:31)
[2018-10-10] MEDS: LANOLIN/MIN OIL/PETROLAT,WHT 3.5 GM TUBE EACHEYE SCH (21:38)
[2018-10-10 22:17] VITALS: BP 105/75
[2018-10-11] MEDS: LORAZEPAM INJ 2 MG/ML VIAL IVP PRN (03:00)
[2018-10-11] MEDS: OMEPRAZOLE 20 MG CAPSULE.DR GT SCH (05:50)
[2018-10-11] MEDS: BACLOFEN (10 MG) 10 MG TABLET GT SCH ×2 (05:50→18:39)
[2018-10-11 07:44] VITALS: BP 84/43
[2018-10-11] MEDS: IPRATROPIUM NEB FS 0.5 MG/2.5 ML AMPUL.NEB NEB SCH ×3 (07:54→19:55)
[2018-10-11] MEDS: CARVEDILOL 3.125 MG TABLET GT SCH ×2 (09:30→20:21)
[2018-10-11] MEDS: Z GUARD REMEDY 4 OZ OINT TP SCH ×2 (09:30→20:23)
[2018-10-11] MEDS: HYDROGEN PEROXIDE 480 ML BOTTLE TP SCH ×2 (09:30→20:23)
[2018-10-11] MEDS: FERROUS SULFATE - FOR SA ONLY 330 MG/7.5 ML UDC GT SCH ×2 (09:30→17:00)
[2018-10-11] MEDS: SIMETHICONE SUSP 40 MG/0.6 ML BOTTLE GT SCH ×2 (09:30→20:22)
[2018-10-11] MEDS: MIDODRINE HCL (5MG) 5 MG TABLET GT SCH ×2 (09:30→20:22)
[2018-10-11] MEDS: POLYVINYL ALCOHOL 15 ML BOTTLE OP SCH ×4 (09:30→20:23)
[2018-10-11] MEDS: ACIDOPHILUS/BULGARICUS 1 EACH TAB.CHEW GT SCH ×2 (09:30→17:00)
[2018-10-11 10:00] VITALS: BP 119/75
[2018-10-11] MEDS: TWOCAL HN 1,000 ML LIQUID GT PRN (13:26)
[2018-10-11 19:49] VITALS: BP 101/60
[2018-10-11] MEDS: MULTIVIT W/MINERALS 1 TAB TABLET GT SCH (20:23)
[2018-10-11] MEDS: CEFTRIAXONE 1 G in IV D5W 50 ML IV SCH (21:00)
[2018-10-11] MEDS: VANCOMYCIN 1.25 GM in IV D5W 500 ML IV SCH (22:00)
[2018-10-11] MEDS: LANOLIN/MIN OIL/PETROLAT,WHT 3.5 GM TUBE EACHEYE SCH (22:03)
[2018-10-11 22:17] VITALS: BP 101/60
[2018-10-12] MEDS: IPRATROPIUM NEB FS 0.5 MG/2.5 ML AMPUL.NEB NEB SCH ×4 (01:36→19:30)
[2018-10-12] MEDS: OMEPRAZOLE 20 MG CAPSULE.DR GT SCH (05:46)
[2018-10-12] MEDS: BACLOFEN (10 MG) 10 MG TABLET GT SCH ×2 (05:46→17:00)
[2018-10-12 08:00] VITALS: BP 119/77
[2018-10-12] MEDS: Z GUARD REMEDY 4 OZ OINT TP SCH ×2 (09:00→21:25)
[2018-10-12] MEDS: HYDROGEN PEROXIDE 480 ML BOTTLE TP SCH ×2 (09:00→21:25)
[2018-10-12] MEDS: FERROUS SULFATE - FOR SA ONLY 330 MG/7.5 ML UDC GT SCH ×2 (09:09→16:59)
[2018-10-12] MEDS: CARVEDILOL 3.125 MG TABLET GT SCH ×2 (09:09→21:24)
[2018-10-12] MEDS: SIMETHICONE SUSP 40 MG/0.6 ML BOTTLE GT SCH ×2 (09:09→21:25)
[2018-10-12] MEDS: ACIDOPHILUS/BULGARICUS 1 EACH TAB.CHEW GT SCH ×2 (09:09→16:59)
[2018-10-12] MEDS: MIDODRINE HCL (5MG) 5 MG TABLET GT SCH ×2 (09:10→21:25)
[2018-10-12] MEDS: POLYVINYL ALCOHOL 15 ML BOTTLE OP SCH ×4 (09:10→21:25)
[2018-10-12 10:00] VITALS: BP 112/65
[2018-10-12 20:20] VITALS: BP 115/67
[2018-10-12] MEDS: CEFTRIAXONE 1 G in IV D5W 50 ML IV SCH (21:00)
[2018-10-12] MEDS: TWOCAL HN 1,000 ML LIQUID GT PRN (21:25)
[2018-10-12] MEDS: LANOLIN/MIN OIL/PETROLAT,WHT 3.5 GM TUBE EACHEYE SCH (21:25)
[2018-10-12] MEDS: MULTIVIT W/MINERALS 1 TAB TABLET GT SCH (21:25)
[2018-10-12] MEDS: VANCOMYCIN 1.25 GM in IV D5W 500 ML IV SCH (22:00)
[2018-10-12 22:02] VITALS: BP 118/72
[2018-10-13] MEDS: IPRATROPIUM NEB FS 0.5 MG/2.5 ML AMPUL.NEB NEB SCH ×4 (01:28→19:36)
[2018-10-13] MEDS: OMEPRAZOLE 20 MG CAPSULE.DR GT SCH (06:01)
[2018-10-13] MEDS: BACLOFEN (10 MG) 10 MG TABLET GT SCH ×2 (06:01→17:11)
[2018-10-13 07:30] VITALS: BP 101/66
[2018-10-13 07:38] VITALS: BP 101/66
[2018-10-13] MEDS: HYDROGEN PEROXIDE 480 ML BOTTLE TP SCH ×2 (09:00→20:49)
[2018-10-13] MEDS: MIDODRINE HCL (5MG) 5 MG TABLET GT SCH ×2 (09:00→20:46)
[2018-10-13] MEDS: ACIDOPHILUS/BULGARICUS 1 EACH TAB.CHEW GT SCH ×2 (09:00→16:17)
[2018-10-13] MEDS: SIMETHICONE SUSP 40 MG/0.6 ML BOTTLE GT SCH ×2 (09:00→20:45)
[2018-10-13] MEDS: CARVEDILOL 3.125 MG TABLET GT SCH ×2 (09:00→20:45)
[2018-10-13] MEDS: POLYVINYL ALCOHOL 15 ML BOTTLE OP SCH ×4 (09:00→20:49)
[2018-10-13] MEDS: Z GUARD REMEDY 4 OZ OINT TP SCH ×2 (09:00→20:49)
[2018-10-13] MEDS: FERROUS SULFATE - FOR SA ONLY 330 MG/7.5 ML UDC GT SCH ×2 (09:00→16:18)
[2018-10-13 10:00] VITALS: BP 101/66
[2018-10-13 20:26] VITALS: BP 126/69
[2018-10-13] MEDS: MULTIVIT W/MINERALS 1 TAB TABLET GT SCH (20:49)
[2018-10-13] MEDS: CEFTRIAXONE 1 G in IV D5W 50 ML IV SCH (21:00)
[2018-10-13 22:00] VITALS: BP 118/70
[2018-10-13] MEDS: VANCOMYCIN 1.25 GM in IV D5W 500 ML IV SCH (22:00)
[2018-10-13] MEDS: LANOLIN/MIN OIL/PETROLAT,WHT 3.5 GM TUBE EACHEYE SCH (22:12)
[2018-10-13 22:18] LABS: CREATININE 0.6 mg/dL (0.6-1.3)
[2018-10-14] MEDS: IPRATROPIUM NEB FS 0.5 MG/2.5 ML AMPUL.NEB NEB SCH ×4 (00:43→19:45)
[2018-10-14] MEDS: BACLOFEN (10 MG) 10 MG TABLET GT SCH ×2 (06:16→17:37)
[2018-10-14] MEDS: OMEPRAZOLE 20 MG CAPSULE.DR GT SCH (06:16)
[2018-10-14] MEDS: TWOCAL HN 1,000 ML LIQUID GT PRN (06:27)
[2018-10-14 08:00] VITALS: BP 92/56
[2018-10-14] MEDS: ACIDOPHILUS/BULGARICUS 1 EACH TAB.CHEW GT SCH ×2 (09:14→17:37)
[2018-10-14] MEDS: FERROUS SULFATE - FOR SA ONLY 330 MG/7.5 ML UDC GT SCH ×2 (09:14→17:37)
[2018-10-14] MEDS: SIMETHICONE SUSP 40 MG/0.6 ML BOTTLE GT SCH ×2 (09:14→21:14)
[2018-10-14] MEDS: CARVEDILOL 3.125 MG TABLET GT SCH ×2 (09:14→21:14)
[2018-10-14] MEDS: Z GUARD REMEDY 4 OZ OINT TP SCH ×2 (09:15→21:00)
[2018-10-14] MEDS: MIDODRINE HCL (5MG) 5 MG TABLET GT SCH ×2 (09:15→21:14)
[2018-10-14] MEDS: HYDROGEN PEROXIDE 480 ML BOTTLE TP SCH ×2 (09:15→21:00)
[2018-10-14] MEDS: POLYVINYL ALCOHOL 15 ML BOTTLE OP SCH ×4 (09:15→21:00)
[2018-10-14 10:00] VITALS: BP 103/65
[2018-10-14 19:49] VITALS: BP 93/65
[2018-10-14] MEDS: MULTIVIT W/MINERALS 1 TAB TABLET GT SCH (21:14)
[2018-10-14] MEDS: CEFTRIAXONE 1 G in IV D5W 50 ML IV SCH (21:14)
[2018-10-14] MEDS: LANOLIN/MIN OIL/PETROLAT,WHT 3.5 GM TUBE EACHEYE SCH (21:15)
[2018-10-14 22:00] VITALS: BP 93/65
[2018-10-14] MEDS: VANCOMYCIN 1 GM in IV D5W 250ml IV SCH (22:00)
[2018-10-15] MEDS: IPRATROPIUM NEB FS 0.5 MG/2.5 ML AMPUL.NEB NEB SCH ×4 (01:26→19:54)
[2018-10-15] MEDS: BACLOFEN (10 MG) 10 MG TABLET GT SCH ×2 (06:36→17:27)
[2018-10-15] MEDS: OMEPRAZOLE 20 MG CAPSULE.DR GT SCH (06:36)
[2018-10-15 08:01] VITALS: BP 109/57
[2018-10-15] MEDS: TWOCAL HN 1,000 ML LIQUID GT PRN (09:15)
[2018-10-15] MEDS: FERROUS SULFATE - FOR SA ONLY 330 MG/7.5 ML UDC GT SCH ×2 (09:24→17:27)
[2018-10-15] MEDS: SIMETHICONE SUSP 40 MG/0.6 ML BOTTLE GT SCH ×2 (09:25→21:25)
[2018-10-15] MEDS: ACIDOPHILUS/BULGARICUS 1 EACH TAB.CHEW GT SCH ×2 (09:25→17:27)
[2018-10-15] MEDS: MIDODRINE HCL (5MG) 5 MG TABLET GT SCH ×2 (09:25→21:25)
[2018-10-15] MEDS: POLYVINYL ALCOHOL 15 ML BOTTLE OP SCH ×4 (09:26→21:26)
[2018-10-15] MEDS: HYDROGEN PEROXIDE 480 ML BOTTLE TP SCH ×2 (09:26→21:26)
[2018-10-15] MEDS: CARVEDILOL 3.125 MG TABLET GT SCH ×2 (09:26→21:25)
[2018-10-15] MEDS: Z GUARD REMEDY 4 OZ OINT TP SCH ×2 (09:26→21:26)
[2018-10-15 10:00] VITALS: BP 113/62
[2018-10-15 20:12] VITALS: BP 103/67
[2018-10-15] MEDS: CEFTRIAXONE 1 G in IV D5W 50 ML IV SCH (21:00)
[2018-10-15] MEDS: MULTIVIT W/MINERALS 1 TAB TABLET GT SCH (21:25)
[2018-10-15] MEDS: LANOLIN/MIN OIL/PETROLAT,WHT 3.5 GM TUBE EACHEYE SCH (21:26)
[2018-10-15 22:00] VITALS: BP 119/65
[2018-10-15] MEDS: VANCOMYCIN 1 GM in IV D5W 250ml IV SCH (22:00)
[2018-10-16] MEDS: IPRATROPIUM NEB FS 0.5 MG/2.5 ML AMPUL.NEB NEB SCH ×4 (01:22→19:57)
[2018-10-16] MEDS: BACLOFEN (10 MG) 10 MG TABLET GT SCH ×2 (06:13→17:16)
[2018-10-16] MEDS: OMEPRAZOLE 20 MG CAPSULE.DR GT SCH (06:13)
[2018-10-16 07:44] VITALS: BP 105/55
[2018-10-16] MEDS: CARVEDILOL 3.125 MG TABLET GT SCH ×2 (09:28→20:37)
[2018-10-16] MEDS: POLYVINYL ALCOHOL 15 ML BOTTLE OP SCH ×4 (09:28→20:40)
[2018-10-16] MEDS: HYDROGEN PEROXIDE 480 ML BOTTLE TP SCH ×2 (09:28→20:40)
[2018-10-16] MEDS: Z GUARD REMEDY 4 OZ OINT TP SCH ×2 (09:28→20:40)
[2018-10-16] MEDS: ACIDOPHILUS/BULGARICUS 1 EACH TAB.CHEW GT SCH ×2 (09:28→17:16)
[2018-10-16] MEDS: FERROUS SULFATE - FOR SA ONLY 330 MG/7.5 ML UDC GT SCH ×2 (09:28→17:16)
[2018-10-16] MEDS: MIDODRINE HCL (5MG) 5 MG TABLET GT SCH ×2 (09:28→20:39)
[2018-10-16] MEDS: SIMETHICONE SUSP 40 MG/0.6 ML BOTTLE GT SCH ×2 (09:28→20:38)
[2018-10-16 10:00] VITALS: BP 105/55
[2018-10-16] MEDS: TWOCAL HN 1,000 ML LIQUID GT PRN (17:19)
[2018-10-16 20:28] VITALS: BP 126/77
[2018-10-16] MEDS: MULTIVIT W/MINERALS 1 TAB TABLET GT SCH (20:40)
[2018-10-16] MEDS: CEFTRIAXONE 1 G in IV D5W 50 ML IV SCH (21:00)
[2018-10-16] MEDS: LANOLIN/MIN OIL/PETROLAT,WHT 3.5 GM TUBE EACHEYE SCH (21:41)
[2018-10-16] MEDS: VANCOMYCIN 1 GM in IV D5W 250ml IV SCH (22:00)
[2018-10-16 22:10] LABS: CREATININE 0.6 mg/dL (0.6-1.3)
[2018-10-16 22:31] VITALS: BP 126/77
[2018-10-17] MEDS: IPRATROPIUM NEB FS 0.5 MG/2.5 ML AMPUL.NEB NEB SCH ×4 (01:37→19:24)
[2018-10-17] MEDS: BACLOFEN (10 MG) 10 MG TABLET GT SCH ×2 (05:30→17:18)
[2018-10-17] MEDS: OMEPRAZOLE 20 MG CAPSULE.DR GT SCH (05:30)
[2018-10-17 07:43] VITALS: BP 101/52
[2018-10-17] MEDS: POLYVINYL ALCOHOL 15 ML BOTTLE OP SCH ×4 (09:34→20:25)
[2018-10-17] MEDS: Z GUARD REMEDY 4 OZ OINT TP SCH ×2 (09:34→20:25)
[2018-10-17] MEDS: MIDODRINE HCL (5MG) 5 MG TABLET GT SCH ×2 (09:34→20:24)
[2018-10-17] MEDS: SIMETHICONE SUSP 40 MG/0.6 ML BOTTLE GT SCH ×2 (09:34→20:24)
[2018-10-17] MEDS: ACIDOPHILUS/BULGARICUS 1 EACH TAB.CHEW GT SCH ×2 (09:34→17:18)
[2018-10-17] MEDS: FERROUS SULFATE - FOR SA ONLY 330 MG/7.5 ML UDC GT SCH ×2 (09:34→17:18)
[2018-10-17] MEDS: HYDROGEN PEROXIDE 480 ML BOTTLE TP SCH ×2 (09:34→20:25)
[2018-10-17] MEDS: CARVEDILOL 3.125 MG TABLET GT SCH ×2 (09:34→20:23)
[2018-10-17 10:00] VITALS: BP 98/59
[2018-10-17] MEDS: MULTIVIT W/MINERALS 1 TAB TABLET GT SCH (20:25)
[2018-10-17 20:28] VITALS: BP 101/65
[2018-10-17] MEDS: CEFTRIAXONE 1 G in IV D5W 50 ML IV SCH (21:00)
[2018-10-17] MEDS: LANOLIN/MIN OIL/PETROLAT,WHT 3.5 GM TUBE EACHEYE SCH (21:52)
[2018-10-17] MEDS: VANCOMYCIN 1 GM in IV D5W 250ml IV SCH (22:00)
[2018-10-17 22:23] VITALS: BP 101/65
[2018-10-18] MEDS: TWOCAL HN 1,000 ML LIQUID GT PRN (00:33)
[2018-10-18] MEDS: IPRATROPIUM NEB FS 0.5 MG/2.5 ML AMPUL.NEB NEB SCH ×4 (01:52→19:40)
[2018-10-18] MEDS: OMEPRAZOLE 20 MG CAPSULE.DR GT SCH (05:37)
[2018-10-18] MEDS: BACLOFEN (10 MG) 10 MG TABLET GT SCH ×2 (05:37→18:27)
[2018-10-18 08:44] VITALS: BP 112/61
[2018-10-18] MEDS: Z GUARD REMEDY 4 OZ OINT TP SCH ×2 (09:00→21:00)
[2018-10-18] MEDS: HYDROGEN PEROXIDE 480 ML BOTTLE TP SCH ×2 (09:00→21:00)
[2018-10-18] MEDS: CARVEDILOL 3.125 MG TABLET GT SCH ×2 (09:13→21:56)
[2018-10-18] MEDS: FERROUS SULFATE - FOR SA ONLY 330 MG/7.5 ML UDC GT SCH ×2 (09:15→17:47)
[2018-10-18] MEDS: ACIDOPHILUS/BULGARICUS 1 EACH TAB.CHEW GT SCH ×2 (09:15→17:47)
[2018-10-18] MEDS: SIMETHICONE SUSP 40 MG/0.6 ML BOTTLE GT SCH ×2 (09:16→21:58)
[2018-10-18] MEDS: MIDODRINE HCL (5MG) 5 MG TABLET GT SCH ×2 (09:18→21:00)
[2018-10-18] MEDS: POLYVINYL ALCOHOL 15 ML BOTTLE OP SCH ×4 (09:18→21:00)
[2018-10-18 10:00] VITALS: BP 112/61
[2018-10-18] MEDS ORDERED: VANCOMYCIN 1 GM in IV D5W 250ml IV SCH (10:00)
[2018-10-18 20:19] VITALS: BP 112/67
[2018-10-18] MEDS: CEFTRIAXONE 1 G in IV D5W 50 ML IV SCH (21:00)
[2018-10-18] MEDS: MULTIVIT W/MINERALS 1 TAB TABLET GT SCH (21:00)
[2018-10-18 22:00] VITALS: BP 112/67
[2018-10-18] MEDS: LANOLIN/MIN OIL/PETROLAT,WHT 3.5 GM TUBE EACHEYE SCH (22:05)
[2018-10-19] MEDS: IPRATROPIUM NEB FS 0.5 MG/2.5 ML AMPUL.NEB NEB SCH ×4 (01:20→20:16)
[2018-10-19] MEDS: BACLOFEN (10 MG) 10 MG TABLET GT SCH ×2 (06:47→18:06)
[2018-10-19] MEDS: OMEPRAZOLE 20 MG CAPSULE.DR GT SCH (06:47)
[2018-10-19 07:32] VITALS: BP 102/59
[2018-10-19] MEDS: Z GUARD REMEDY 4 OZ OINT TP SCH ×2 (09:00→21:16)
[2018-10-19] MEDS: HYDROGEN PEROXIDE 480 ML BOTTLE TP SCH ×2 (09:00→21:16)
[2018-10-19] MEDS: FERROUS SULFATE - FOR SA ONLY 330 MG/7.5 ML UDC GT SCH ×2 (09:33→17:00)
[2018-10-19] MEDS: ACIDOPHILUS/BULGARICUS 1 EACH TAB.CHEW GT SCH ×2 (09:33→17:00)
[2018-10-19] MEDS: CARVEDILOL 3.125 MG TABLET GT SCH ×2 (09:33→21:14)
[2018-10-19] MEDS: SIMETHICONE SUSP 40 MG/0.6 ML BOTTLE GT SCH ×2 (09:33→21:14)
[2018-10-19] MEDS: MIDODRINE HCL (5MG) 5 MG TABLET GT SCH ×2 (09:34→21:14)
[2018-10-19] MEDS: POLYVINYL ALCOHOL 15 ML BOTTLE OP SCH ×4 (09:34→21:16)
[2018-10-19 15:53] VITALS: BP 110/66
[2018-10-19 20:36] VITALS: BP 104/71
[2018-10-19] MEDS: MULTIVIT W/MINERALS 1 TAB TABLET GT SCH (21:16)
[2018-10-19] MEDS: LANOLIN/MIN OIL/PETROLAT,WHT 3.5 GM TUBE EACHEYE SCH (21:16)
[2018-10-19 22:00] VITALS: BP 109/65
[2018-10-20] MEDS: IPRATROPIUM NEB FS 0.5 MG/2.5 ML AMPUL.NEB NEB SCH ×4 (01:57→20:18)
[2018-10-20] MEDS: BACLOFEN (10 MG) 10 MG TABLET GT SCH ×2 (05:54→18:21)
[2018-10-20] MEDS: OMEPRAZOLE 20 MG CAPSULE.DR GT SCH (05:54)
[2018-10-20 07:36] VITALS: BP 108/70
[2018-10-20] MEDS: MIDODRINE HCL (5MG) 5 MG TABLET GT SCH ×2 (09:00→21:00)
[2018-10-20] MEDS: HYDROGEN PEROXIDE 480 ML BOTTLE TP SCH ×2 (09:00→21:30)
[2018-10-20] MEDS: POLYVINYL ALCOHOL 15 ML BOTTLE OP SCH ×4 (09:00→21:30)
[2018-10-20] MEDS: ACIDOPHILUS/BULGARICUS 1 EACH TAB.CHEW GT SCH ×2 (09:00→17:00)
[2018-10-20] MEDS: CARVEDILOL 3.125 MG TABLET GT SCH ×2 (09:00→21:29)
[2018-10-20] MEDS: Z GUARD REMEDY 4 OZ OINT TP SCH ×2 (09:00→21:30)
[2018-10-20] MEDS: FERROUS SULFATE - FOR SA ONLY 330 MG/7.5 ML UDC GT SCH ×2 (09:00→17:00)
[2018-10-20] MEDS: SIMETHICONE SUSP 40 MG/0.6 ML BOTTLE GT SCH ×2 (09:00→21:29)
[2018-10-20 12:46] VITALS: BP 100/70
[2018-10-20] MEDS: TWOCAL HN 1,000 ML LIQUID GT PRN (16:17)
[2018-10-20] MEDS: LACTULOSE 10 G/15 ML UDC (PYXIS) GT PRN (18:21)
[2018-10-20 20:08] VITALS: BP 129/79
[2018-10-20] MEDS: MULTIVIT W/MINERALS 1 TAB TABLET GT SCH (21:30)
[2018-10-20] MEDS: LANOLIN/MIN OIL/PETROLAT,WHT 3.5 GM TUBE EACHEYE SCH (21:30)
[2018-10-20 22:00] VITALS: BP 129/79
[2018-10-21] MEDS: IPRATROPIUM NEB FS 0.5 MG/2.5 ML AMPUL.NEB NEB SCH ×4 (02:02→20:18)
[2018-10-21 02:05] VITALS: BP 129/79
[2018-10-21] MEDS: BACLOFEN (10 MG) 10 MG TABLET GT SCH ×2 (05:42→18:08)
[2018-10-21] MEDS: OMEPRAZOLE 20 MG CAPSULE.DR GT SCH (05:42)
[2018-10-21 08:09] VITALS: BP 92/46
[2018-10-21] MEDS: CARVEDILOL 3.125 MG TABLET GT SCH ×2 (09:00→21:16)
[2018-10-21] MEDS: HYDROGEN PEROXIDE 480 ML BOTTLE TP SCH ×2 (09:00→21:17)
[2018-10-21] MEDS: ACIDOPHILUS/BULGARICUS 1 EACH TAB.CHEW GT SCH ×2 (09:00→17:00)
[2018-10-21] MEDS: POLYVINYL ALCOHOL 15 ML BOTTLE OP SCH ×4 (09:00→21:16)
[2018-10-21] MEDS: Z GUARD REMEDY 4 OZ OINT TP SCH ×2 (09:00→21:17)
[2018-10-21] MEDS: MIDODRINE HCL (5MG) 5 MG TABLET GT SCH ×2 (09:00→21:16)
[2018-10-21] MEDS: SIMETHICONE SUSP 40 MG/0.6 ML BOTTLE GT SCH ×2 (09:00→21:16)
[2018-10-21] MEDS: FERROUS SULFATE - FOR SA ONLY 330 MG/7.5 ML UDC GT SCH ×2 (09:00→17:00)
[2018-10-21 19:29] VITALS: BP 105/62
[2018-10-21 20:14] VITALS: BP 111/76
[2018-10-21] MEDS: MULTIVIT W/MINERALS 1 TAB TABLET GT SCH (21:16)
[2018-10-21] MEDS: LANOLIN/MIN OIL/PETROLAT,WHT 3.5 GM TUBE EACHEYE SCH (21:17)
[2018-10-21] MEDS: TWOCAL HN 1,000 ML LIQUID GT PRN (21:33)
[2018-10-21 22:00] VITALS: BP 111/76
[2018-10-22] MEDS: IPRATROPIUM NEB FS 0.5 MG/2.5 ML AMPUL.NEB NEB SCH ×4 (02:01→19:27)
[2018-10-22] MEDS: BACLOFEN (10 MG) 10 MG TABLET GT SCH ×2 (05:54→17:58)
[2018-10-22] MEDS: OMEPRAZOLE 20 MG CAPSULE.DR GT SCH (05:54)
[2018-10-22 08:00] VITALS: BP_SYST 110; BP_DIAS 61; BP_DIAS 76
[2018-10-22] MEDS: SIMETHICONE SUSP 40 MG/0.6 ML BOTTLE GT SCH ×2 (09:00→20:37)
[2018-10-22] MEDS: FERROUS SULFATE - FOR SA ONLY 330 MG/7.5 ML UDC GT SCH ×2 (09:00→17:58)
[2018-10-22] MEDS: Z GUARD REMEDY 4 OZ OINT TP SCH ×2 (09:00→20:35)
[2018-10-22] MEDS: CARVEDILOL 3.125 MG TABLET GT SCH ×2 (09:00→20:34)
[2018-10-22] MEDS: POLYVINYL ALCOHOL 15 ML BOTTLE OP SCH ×4 (09:00→20:35)
[2018-10-22] MEDS: ACIDOPHILUS/BULGARICUS 1 EACH TAB.CHEW GT SCH ×2 (09:00→17:58)
[2018-10-22] MEDS: MIDODRINE HCL (5MG) 5 MG TABLET GT SCH ×2 (09:00→20:34)
[2018-10-22] MEDS: HYDROGEN PEROXIDE 480 ML BOTTLE TP SCH ×2 (09:00→20:35)
[2018-10-22 13:15] VITALS: BP 126/83
[2018-10-22 19:58] VITALS: BP 117/75
[2018-10-22] MEDS: MULTIVIT W/MINERALS 1 TAB TABLET GT SCH (20:34)
[2018-10-22 22:00] VITALS: BP 117/75
[2018-10-22] MEDS: LANOLIN/MIN OIL/PETROLAT,WHT 3.5 GM TUBE EACHEYE SCH (22:00)
[2018-10-23] MEDS: IPRATROPIUM NEB FS 0.5 MG/2.5 ML AMPUL.NEB NEB SCH ×4 (01:29→20:09)
[2018-10-23] MEDS: BACLOFEN (10 MG) 10 MG TABLET GT SCH ×2 (05:42→17:57)
[2018-10-23] MEDS: OMEPRAZOLE 20 MG CAPSULE.DR GT SCH (05:42)
[2018-10-23 07:31] LABS: BASOPHILS % (AUTO) 0.6 % (0.0-2.0); HEMATOCRIT 26 % (33-45); LYMPHOCYTES # (AUTO) 2.1 /CMM (0.8-4.8); LYMPHOCYTES % (AUTO) 43.4 % (20.0-44.0); MEAN CORPUSCULAR HGB CONC 31 g/dl (31.0-36.0); MEAN CORPUSCULAR VOLUME 82 fL (82-100); MONOCYTES # (AUTO) 0.5 /CMM (0.1-1.30); MONOCYTES % (AUTO) 10.5 % (2.0-12.0); NEUTROPHILS % (AUTO) 42.5 % (43.0-81.0); PLATELET COUNT (AUTO) 191 /CMM (150-450); RED BLOOD CELL COUNT(AUTO) 3.13 MIL/uL (4.0-5.2); WHITE BLOOD COUNT (AUTO) 4.7 K/uL (4.3-11.0)
[2018-10-23 07:37] VITALS: BP 103/66
[2018-10-23 07:40] LABS: CALCIUM, SERUM 9.2 mg/dL (8.5-10.1); CREATININE 0.6 mg/dL (0.6-1.3); MAGNESIUM 2.4 mg/dL (1.8-2.4); POTASSIUM 4.4 mmol/L (3.5-5.1)
[2018-10-23] MEDS: MIDODRINE HCL (5MG) 5 MG TABLET GT SCH ×2 (09:00→21:49)
[2018-10-23] MEDS: HYDROGEN PEROXIDE 480 ML BOTTLE TP SCH ×2 (09:00→21:49)
[2018-10-23] MEDS: Z GUARD REMEDY 4 OZ OINT TP SCH ×2 (09:00→21:49)
[2018-10-23] MEDS: SIMETHICONE SUSP 40 MG/0.6 ML BOTTLE GT SCH ×2 (09:48→21:49)
[2018-10-23] MEDS: POLYVINYL ALCOHOL 15 ML BOTTLE OP SCH ×4 (09:48→21:49)
[2018-10-23] MEDS: ACIDOPHILUS/BULGARICUS 1 EACH TAB.CHEW GT SCH ×2 (09:48→17:57)
[2018-10-23] MEDS: FERROUS SULFATE - FOR SA ONLY 330 MG/7.5 ML UDC GT SCH ×2 (09:48→17:57)
[2018-10-23] MEDS: CARVEDILOL 3.125 MG TABLET GT SCH ×2 (09:49→21:49)
[2018-10-23 10:00] VITALS: BP 118/64
[2018-10-23 20:08] VITALS: BP 94/51
[2018-10-23] MEDS: MULTIVIT W/MINERALS 1 TAB TABLET GT SCH (21:49)
[2018-10-23] MEDS: LANOLIN/MIN OIL/PETROLAT,WHT 3.5 GM TUBE EACHEYE SCH (21:50)
[2018-10-23 22:00] VITALS: BP 98/54
[2018-10-24] MEDS: IPRATROPIUM NEB FS 0.5 MG/2.5 ML AMPUL.NEB NEB SCH ×4 (01:42→19:20)
[2018-10-24] MEDS: BACLOFEN (10 MG) 10 MG TABLET GT SCH ×2 (05:28→17:20)
[2018-10-24] MEDS: OMEPRAZOLE 20 MG CAPSULE.DR GT SCH (05:28)
[2018-10-24 07:37] VITALS: BP 93/47
[2018-10-24] MEDS: Z GUARD REMEDY 4 OZ OINT TP SCH ×2 (09:00→21:14)
[2018-10-24] MEDS: MIDODRINE HCL (5MG) 5 MG TABLET GT SCH ×2 (09:00→21:13)
[2018-10-24] MEDS: HYDROGEN PEROXIDE 480 ML BOTTLE TP SCH ×2 (09:00→21:14)
[2018-10-24] MEDS: ACIDOPHILUS/BULGARICUS 1 EACH TAB.CHEW GT SCH ×2 (09:43→17:20)
[2018-10-24] MEDS: SIMETHICONE SUSP 40 MG/0.6 ML BOTTLE GT SCH ×2 (09:43→21:13)
[2018-10-24] MEDS: FERROUS SULFATE - FOR SA ONLY 330 MG/7.5 ML UDC GT SCH ×2 (09:43→17:20)
[2018-10-24] MEDS: POLYVINYL ALCOHOL 15 ML BOTTLE OP SCH ×4 (09:45→21:14)
[2018-10-24 10:00] VITALS: BP 117/74
[2018-10-24] MEDS: CARVEDILOL 3.125 MG TABLET GT SCH ×2 (10:00→21:13)
[2018-10-24] MEDS: TWOCAL HN 1,000 ML LIQUID GT PRN (10:28)
[2018-10-24 20:09] VITALS: BP 95/52
[2018-10-24] MEDS: MULTIVIT W/MINERALS 1 TAB TABLET GT SCH (21:13)
[2018-10-24] MEDS: LANOLIN/MIN OIL/PETROLAT,WHT 3.5 GM TUBE EACHEYE SCH (21:14)
[2018-10-24 23:03] VITALS: BP 98/54
[2018-10-25] MEDS: IPRATROPIUM NEB FS 0.5 MG/2.5 ML AMPUL.NEB NEB SCH ×4 (00:33→19:25)
[2018-10-25] MEDS: BACLOFEN (10 MG) 10 MG TABLET GT SCH ×2 (05:47→17:31)
[2018-10-25] MEDS: OMEPRAZOLE 20 MG CAPSULE.DR GT SCH (05:47)
[2018-10-25 07:45] VITALS: BP 95/67
[2018-10-25] MEDS: CARVEDILOL 3.125 MG TABLET GT SCH ×2 (08:34→21:12)
[2018-10-25] MEDS: MIDODRINE HCL (5MG) 5 MG TABLET GT SCH ×2 (08:34→21:00)
[2018-10-25] MEDS: FERROUS SULFATE - FOR SA ONLY 330 MG/7.5 ML UDC GT SCH ×2 (08:34→16:34)
[2018-10-25] MEDS: ACIDOPHILUS/BULGARICUS 1 EACH TAB.CHEW GT SCH ×2 (08:34→16:34)
[2018-10-25] MEDS: SIMETHICONE SUSP 40 MG/0.6 ML BOTTLE GT SCH ×2 (08:34→21:00)
[2018-10-25] MEDS: POLYVINYL ALCOHOL 15 ML BOTTLE OP SCH ×4 (08:34→21:00)
[2018-10-25] MEDS: Z GUARD REMEDY 4 OZ OINT TP SCH ×2 (09:00→21:00)
[2018-10-25] MEDS: HYDROGEN PEROXIDE 480 ML BOTTLE TP SCH ×2 (09:00→21:00)
[2018-10-25 10:00] VITALS: BP 95/67
[2018-10-25] MEDS: TWOCAL HN 1,000 ML LIQUID GT PRN (17:33)
[2018-10-25 20:54] VITALS: BP 115/72
[2018-10-25] MEDS: MULTIVIT W/MINERALS 1 TAB TABLET GT SCH (21:00)
[2018-10-25 22:00] VITALS: BP 115/72
[2018-10-25] MEDS: LANOLIN/MIN OIL/PETROLAT,WHT 3.5 GM TUBE EACHEYE SCH (22:08)
[2018-10-26] MEDS: IPRATROPIUM NEB FS 0.5 MG/2.5 ML AMPUL.NEB NEB SCH ×4 (00:53→19:25)
[2018-10-26] MEDS: BACLOFEN (10 MG) 10 MG TABLET GT SCH (05:00)
[2018-10-26] MEDS: OMEPRAZOLE 20 MG CAPSULE.DR GT SCH (05:00)
[2018-10-26 07:53] VITALS: BP 130/81
[2018-10-26] MEDS: LORAZEPAM INJ 2 MG/ML VIAL IVP PRN (08:00)
[2018-10-26] MEDS: ACIDOPHILUS/BULGARICUS 1 EACH TAB.CHEW GT SCH ×2 (09:00→16:15)
[2018-10-26] MEDS: SIMETHICONE SUSP 40 MG/0.6 ML BOTTLE GT SCH ×2 (09:00→21:38)
[2018-10-26] MEDS: POLYVINYL ALCOHOL 15 ML BOTTLE OP SCH ×4 (09:00→21:40)
[2018-10-26] MEDS: MIDODRINE HCL (5MG) 5 MG TABLET GT SCH ×2 (09:00→21:38)
[2018-10-26] MEDS: HYDROGEN PEROXIDE 480 ML BOTTLE TP SCH ×2 (09:00→21:40)
[2018-10-26] MEDS: CARVEDILOL 3.125 MG TABLET GT SCH ×2 (09:00→21:00)
[2018-10-26] MEDS: FERROUS SULFATE - FOR SA ONLY 330 MG/7.5 ML UDC GT SCH ×2 (09:00→16:15)
[2018-10-26] MEDS: Z GUARD REMEDY 4 OZ OINT TP SCH ×2 (09:00→21:40)
[2018-10-26 11:10] VITALS: BP 100/58
[2018-10-26 11:38] VITALS: BP 126/62
[2018-10-26 12:00] VITALS: BP 125/72
[2018-10-26] MEDS ORDERED: LORAZEPAM INJ 2 MG/ML VIAL IVP ONE (13:00)
[2018-10-26 13:03] LABS: ABG BASE EXCESS 1.9 mmol/L; ABG OXYGEN SATURATION 94.9 % (92.0-98.5); ABG PCO2 57.4 mmHg (35.0-45.0); ABG PH 7.318 (7.350-7.450); ABG PO2 84.6 mmHg (75.0-100.0); AaDO2 134.6 mmHg; MetHb 0.7 % (0.0-1.5); O2Hb 93.3 % (94.0-97.0); SITE, ABG Right Radial; VENT MODE, BG AC 12 550 +5
[2018-10-26 16:11] VITALS: BP 116/59
[2018-10-26 20:00] VITALS: BP 86/45
[2018-10-26] MEDS: MULTIVIT W/MINERALS 1 TAB TABLET GT SCH (21:40)
[2018-10-26] MEDS: LANOLIN/MIN OIL/PETROLAT,WHT 3.5 GM TUBE EACHEYE SCH (21:40)
[2018-10-26] MEDS: TWOCAL HN 1,000 ML LIQUID GT PRN (23:30)
[2018-10-27] MEDS: IPRATROPIUM NEB FS 0.5 MG/2.5 ML AMPUL.NEB NEB SCH ×4 (00:31→19:20)
[2018-10-27] MEDS: LORAZEPAM INJ 2 MG/ML VIAL IVP PRN (01:25)
[2018-10-27 03:27] VITALS: BP 115/68
[2018-10-27] MEDS: OMEPRAZOLE 20 MG CAPSULE.DR GT SCH (05:58)
[2018-10-27] MEDS: BACLOFEN (10 MG) 10 MG TABLET GT SCH ×2 (05:58→17:33)
[2018-10-27 07:24] VITALS: BP 99/52
[2018-10-27] MEDS: POLYVINYL ALCOHOL 15 ML BOTTLE OP SCH ×4 (08:16→21:50)
[2018-10-27] MEDS: MIDODRINE HCL (5MG) 5 MG TABLET GT SCH ×2 (08:16→21:50)
[2018-10-27] MEDS: ACIDOPHILUS/BULGARICUS 1 EACH TAB.CHEW GT SCH ×2 (08:16→17:33)
[2018-10-27] MEDS: CARVEDILOL 3.125 MG TABLET GT SCH ×2 (08:16→21:49)
[2018-10-27] MEDS: SIMETHICONE SUSP 40 MG/0.6 ML BOTTLE GT SCH ×2 (08:16→21:49)
[2018-10-27] MEDS: FERROUS SULFATE - FOR SA ONLY 330 MG/7.5 ML UDC GT SCH ×2 (08:16→17:33)
[2018-10-27] MEDS: HYDROGEN PEROXIDE 480 ML BOTTLE TP SCH ×2 (08:17→21:50)
[2018-10-27] MEDS: Z GUARD REMEDY 4 OZ OINT TP SCH ×2 (08:17→21:50)
[2018-10-27 10:00] VITALS: BP 110/74
[2018-10-27 21:32] VITALS: BP 99/54
[2018-10-27] MEDS: LANOLIN/MIN OIL/PETROLAT,WHT 3.5 GM TUBE EACHEYE SCH (21:50)
[2018-10-27] MEDS: MULTIVIT W/MINERALS 1 TAB TABLET GT SCH (21:50)
[2018-10-27 22:00] VITALS: BP 101/60
[2018-10-28] MEDS: IPRATROPIUM NEB FS 0.5 MG/2.5 ML AMPUL.NEB NEB SCH ×4 (00:35→20:21)
[2018-10-28] MEDS: TWOCAL HN 1,000 ML LIQUID GT PRN (00:52)
[2018-10-28] MEDS: BACLOFEN (10 MG) 10 MG TABLET GT SCH ×2 (05:48→17:25)
[2018-10-28] MEDS: OMEPRAZOLE 20 MG CAPSULE.DR GT SCH (05:48)
[2018-10-28] MEDS: LACTULOSE 10 G/15 ML UDC (PYXIS) GT PRN (06:13)
[2018-10-28 07:40] LABS: CALCIUM, SERUM 9.2 mg/dL (8.5-10.1); CREATININE 0.5 mg/dL (0.6-1.3); MAGNESIUM 2.2 mg/dL (1.8-2.4); PHOSPHORUS 3.6 mg/dL (2.5-4.9); POTASSIUM 4.4 mmol/L (3.5-5.1)
[2018-10-28 07:45] LABS: BASOPHILS % (AUTO) 0.5 % (0.0-2.0); EOSINOPHILS % (AUTO) 3.5 % (0.0-6.0); HEMATOCRIT 27 % (33-45); HEMOGLOBIN 8.3 g/dL (11.5-14.8); LYMPHOCYTES % (AUTO) 36.5 % (20.0-44.0); MEAN CORPUSCULAR HGB CONC 31 g/dl (31.0-36.0); MEAN CORPUSCULAR VOLUME 83 fL (82-100); MONOCYTES # (AUTO) 0.5 /CMM (0.1-1.30); MONOCYTES % (AUTO) 9.5 % (2.0-12.0); NEUTROPHILS # (AUTO) 2.8 /CMM (1.8-8.9); PLATELET COUNT (AUTO) 202 /CMM (150-450); RED BLOOD CELL COUNT(AUTO) 3.27 MIL/uL (4.0-5.2); WHITE BLOOD COUNT (AUTO) 5.5 K/uL (4.3-11.0)
[2018-10-28] MEDS: SIMETHICONE SUSP 40 MG/0.6 ML BOTTLE GT SCH ×2 (09:27→21:17)
[2018-10-28] MEDS: CARVEDILOL 3.125 MG TABLET GT SCH ×2 (09:27→21:17)
[2018-10-28] MEDS: MIDODRINE HCL (5MG) 5 MG TABLET GT SCH ×2 (09:27→21:17)
[2018-10-28] MEDS: FERROUS SULFATE - FOR SA ONLY 330 MG/7.5 ML UDC GT SCH ×2 (09:27→17:25)
[2018-10-28] MEDS: Z GUARD REMEDY 4 OZ OINT TP SCH ×2 (09:27→21:18)
[2018-10-28] MEDS: HYDROGEN PEROXIDE 480 ML BOTTLE TP SCH ×2 (09:27→21:18)
[2018-10-28] MEDS: ACIDOPHILUS/BULGARICUS 1 EACH TAB.CHEW GT SCH ×2 (09:27→17:25)
[2018-10-28] MEDS: POLYVINYL ALCOHOL 15 ML BOTTLE OP SCH ×4 (09:27→21:18)
[2018-10-28 19:27] VITALS: BP 95/50
[2018-10-28 20:39] VITALS: BP 83/51
[2018-10-28] MEDS: MULTIVIT W/MINERALS 1 TAB TABLET GT SCH (21:17)
[2018-10-28] MEDS: LANOLIN/MIN OIL/PETROLAT,WHT 3.5 GM TUBE EACHEYE SCH (21:18)
[2018-10-28 22:00] VITALS: BP 97/54
[2018-10-29] MEDS: IPRATROPIUM NEB FS 0.5 MG/2.5 ML AMPUL.NEB NEB SCH ×4 (01:50→20:14)
[2018-10-29] MEDS: BACLOFEN (10 MG) 10 MG TABLET GT SCH ×2 (05:39→18:01)
[2018-10-29] MEDS: OMEPRAZOLE 20 MG CAPSULE.DR GT SCH (05:39)
[2018-10-29] MEDS: TWOCAL HN 1,000 ML LIQUID GT PRN (05:56)
[2018-10-29] MEDS: Z GUARD REMEDY 4 OZ OINT TP SCH ×2 (09:12→21:09)
[2018-10-29] MEDS: HYDROGEN PEROXIDE 480 ML BOTTLE TP SCH ×2 (09:12→21:09)
[2018-10-29] MEDS: MIDODRINE HCL (5MG) 5 MG TABLET GT SCH ×2 (09:12→21:09)
[2018-10-29] MEDS: CARVEDILOL 3.125 MG TABLET GT SCH ×2 (09:12→21:09)
[2018-10-29] MEDS: POLYVINYL ALCOHOL 15 ML BOTTLE OP SCH ×4 (09:12→21:09)
[2018-10-29] MEDS: FERROUS SULFATE - FOR SA ONLY 330 MG/7.5 ML UDC GT SCH ×2 (09:12→17:00)
[2018-10-29] MEDS: SIMETHICONE SUSP 40 MG/0.6 ML BOTTLE GT SCH ×2 (09:12→21:09)
[2018-10-29] MEDS: ACIDOPHILUS/BULGARICUS 1 EACH TAB.CHEW GT SCH ×2 (09:12→17:00)
[2018-10-29 12:11] VITALS: BP 108/68
[2018-10-29 16:57] VITALS: BP 106/64
[2018-10-29 20:39] VITALS: BP 118/77
[2018-10-29] MEDS: MULTIVIT W/MINERALS 1 TAB TABLET GT SCH (21:09)
[2018-10-29] MEDS: LANOLIN/MIN OIL/PETROLAT,WHT 3.5 GM TUBE EACHEYE SCH (21:10)
[2018-10-30] MEDS: IPRATROPIUM NEB FS 0.5 MG/2.5 ML AMPUL.NEB NEB SCH ×4 (00:49→19:38)
[2018-10-30 00:52] VITALS: BP 118/77
[2018-10-30] MEDS: BACLOFEN (10 MG) 10 MG TABLET GT SCH ×2 (05:38→17:47)
[2018-10-30] MEDS: OMEPRAZOLE 20 MG CAPSULE.DR GT SCH (05:38)
[2018-10-30] MEDS: TWOCAL HN 1,000 ML LIQUID GT PRN (06:56)
[2018-10-30 07:59] VITALS: BP 120/57
[2018-10-30] MEDS: HYDROGEN PEROXIDE 480 ML BOTTLE TP SCH ×2 (09:01→21:15)
[2018-10-30] MEDS: POLYVINYL ALCOHOL 15 ML BOTTLE OP SCH ×4 (09:01→21:15)
[2018-10-30] MEDS: Z GUARD REMEDY 4 OZ OINT TP SCH ×2 (09:01→21:15)
[2018-10-30] MEDS: ACIDOPHILUS/BULGARICUS 1 EACH TAB.CHEW GT SCH ×2 (09:01→17:47)
[2018-10-30] MEDS: SIMETHICONE SUSP 40 MG/0.6 ML BOTTLE GT SCH ×2 (09:01→21:14)
[2018-10-30] MEDS: FERROUS SULFATE - FOR SA ONLY 330 MG/7.5 ML UDC GT SCH ×2 (09:01→17:47)
[2018-10-30] MEDS: MIDODRINE HCL (5MG) 5 MG TABLET GT SCH ×2 (09:02→21:15)
[2018-10-30] MEDS: CARVEDILOL 3.125 MG TABLET GT SCH ×2 (09:02→21:14)
[2018-10-30] MEDS ORDERED: IV D5/ 0.9% NACL 1,000 ML IV PRN (17:00)
[2018-10-30 18:46] VITALS: BP 110/60
[2018-10-30 19:04] LABS: OCCULT BLOOD STOOL NEGATIVE (NEGATIVE)
[2018-10-30 20:44] VITALS: BP 119/79
[2018-10-30] MEDS: LANOLIN/MIN OIL/PETROLAT,WHT 3.5 GM TUBE EACHEYE SCH (21:15)
[2018-10-30] MEDS: MULTIVIT W/MINERALS 1 TAB TABLET GT SCH (21:15)
[2018-10-30 22:40] VITALS: BP 119/79
[2018-10-31] MEDS: IPRATROPIUM NEB FS 0.5 MG/2.5 ML AMPUL.NEB NEB SCH ×4 (01:53→19:49)
[2018-10-31] MEDS: BACLOFEN (10 MG) 10 MG TABLET GT SCH ×2 (05:56→17:27)
[2018-10-31] MEDS: OMEPRAZOLE 20 MG CAPSULE.DR GT SCH (05:56)
[2018-10-31 07:41] VITALS: BP 97/43
[2018-10-31] MEDS: POLYVINYL ALCOHOL 15 ML BOTTLE OP SCH ×4 (09:49→21:16)
[2018-10-31] MEDS: FERROUS SULFATE - FOR SA ONLY 330 MG/7.5 ML UDC GT SCH ×2 (09:49→17:27)
[2018-10-31] MEDS: SIMETHICONE SUSP 40 MG/0.6 ML BOTTLE GT SCH ×2 (09:49→21:16)
[2018-10-31] MEDS: ACIDOPHILUS/BULGARICUS 1 EACH TAB.CHEW GT SCH ×2 (09:49→17:27)
[2018-10-31] MEDS: CARVEDILOL 3.125 MG TABLET GT SCH ×2 (09:50→21:16)
[2018-10-31] MEDS: MIDODRINE HCL (5MG) 5 MG TABLET GT SCH ×2 (09:50→21:16)
[2018-10-31] MEDS: Z GUARD REMEDY 4 OZ OINT TP SCH ×2 (09:51→21:16)
[2018-10-31] MEDS: HYDROGEN PEROXIDE 480 ML BOTTLE TP SCH ×2 (09:51→21:16)
[2018-10-31 10:00] VITALS: BP 98/58
[2018-10-31] MEDS: TWOCAL HN 1,000 ML LIQUID GT PRN (14:45)
[2018-10-31 20:07] VITALS: BP 103/64
[2018-10-31] MEDS: SOD FERRIC GLUC 125 MG in IV NS 0.9% 100 ML IV SCH (21:00)
[2018-10-31] MEDS: LANOLIN/MIN OIL/PETROLAT,WHT 3.5 GM TUBE EACHEYE SCH (21:16)
[2018-10-31] MEDS: MULTIVIT W/MINERALS 1 TAB TABLET GT SCH (21:16)
[2018-10-31 22:31] VITALS: BP 103/64
[2018-11-01] MEDS: IPRATROPIUM NEB FS 0.5 MG/2.5 ML AMPUL.NEB NEB SCH ×4 (01:44→19:58)
[2018-11-01] MEDS: BACLOFEN (10 MG) 10 MG TABLET GT SCH ×2 (05:43→17:21)
[2018-11-01] MEDS: OMEPRAZOLE 20 MG CAPSULE.DR GT SCH (05:43)
[2018-11-01 05:47] LABS: OCCULT BLOOD STOOL POSITIVE (NEGATIVE)
[2018-11-01 07:50] VITALS: BP 115/70
[2018-11-01] MEDS: CARVEDILOL 3.125 MG TABLET GT SCH ×2 (09:26→21:28)
[2018-11-01] MEDS: FERROUS SULFATE - FOR SA ONLY 330 MG/7.5 ML UDC GT SCH ×2 (09:26→17:21)
[2018-11-01] MEDS: SIMETHICONE SUSP 40 MG/0.6 ML BOTTLE GT SCH ×2 (09:26→21:28)
[2018-11-01] MEDS: ACIDOPHILUS/BULGARICUS 1 EACH TAB.CHEW GT SCH ×2 (09:26→17:21)
[2018-11-01] MEDS: Z GUARD REMEDY 4 OZ OINT TP SCH ×2 (09:27→21:29)
[2018-11-01] MEDS: POLYVINYL ALCOHOL 15 ML BOTTLE OP SCH ×4 (09:27→21:29)
[2018-11-01] MEDS: HYDROGEN PEROXIDE 480 ML BOTTLE TP SCH ×2 (09:27→21:29)
[2018-11-01] MEDS: MIDODRINE HCL (5MG) 5 MG TABLET GT SCH ×2 (09:27→21:29)
[2018-11-01 10:00] VITALS: BP 108/67
[2018-11-01] MEDS: SOD FERRIC GLUC 125 MG in IV NS 0.9% 100 ML IV SCH (21:00)
[2018-11-01] MEDS: MULTIVIT W/MINERALS 1 TAB TABLET GT SCH (21:29)
[2018-11-01] MEDS: LANOLIN/MIN OIL/PETROLAT,WHT 3.5 GM TUBE EACHEYE SCH (21:29)
[2018-11-01 22:10] VITALS: BP 97/62
[2018-11-02] MEDS: IPRATROPIUM NEB FS 0.5 MG/2.5 ML AMPUL.NEB NEB SCH ×4 (01:49→20:07)
[2018-11-02 02:14] VITALS: BP 97/62
[2018-11-02] MEDS: BACLOFEN (10 MG) 10 MG TABLET GT SCH ×2 (05:46→18:07)
[2018-11-02] MEDS: OMEPRAZOLE 20 MG CAPSULE.DR GT SCH (05:46)
[2018-11-02 07:57] VITALS: BP 117/74
[2018-11-02] MEDS: POLYVINYL ALCOHOL 15 ML BOTTLE OP SCH ×4 (09:00→21:14)
[2018-11-02] MEDS: SIMETHICONE SUSP 40 MG/0.6 ML BOTTLE GT SCH ×2 (09:00→21:13)
[2018-11-02] MEDS: MIDODRINE HCL (5MG) 5 MG TABLET GT SCH ×2 (09:00→21:14)
[2018-11-02] MEDS: CARVEDILOL 3.125 MG TABLET GT SCH ×2 (09:00→21:13)
[2018-11-02] MEDS: FERROUS SULFATE - FOR SA ONLY 330 MG/7.5 ML UDC GT SCH ×2 (09:00→17:00)
[2018-11-02] MEDS: ACIDOPHILUS/BULGARICUS 1 EACH TAB.CHEW GT SCH ×2 (09:00→17:00)
[2018-11-02] MEDS: HYDROGEN PEROXIDE 480 ML BOTTLE TP SCH ×2 (09:00→21:14)
[2018-11-02] MEDS: Z GUARD REMEDY 4 OZ OINT TP SCH ×2 (09:00→21:14)
[2018-11-02 15:50] VITALS: BP 117/74
[2018-11-02 20:23] VITALS: BP 101/79
[2018-11-02] MEDS: SOD FERRIC GLUC 125 MG in IV NS 0.9% 100 ML IV SCH (21:12)
[2018-11-02] MEDS: MULTIVIT W/MINERALS 1 TAB TABLET GT SCH (21:14)
[2018-11-02] MEDS: LANOLIN/MIN OIL/PETROLAT,WHT 3.5 GM TUBE EACHEYE SCH (21:14)
[2018-11-03] MEDS: TWOCAL HN 1,000 ML LIQUID GT PRN (00:29)
[2018-11-03 01:41] VITALS: BP 105/65
[2018-11-03] MEDS: IPRATROPIUM NEB FS 0.5 MG/2.5 ML AMPUL.NEB NEB SCH ×4 (01:42→18:57)
[2018-11-03] MEDS: BACLOFEN (10 MG) 10 MG TABLET GT SCH ×2 (05:30→17:24)
[2018-11-03] MEDS: OMEPRAZOLE 20 MG CAPSULE.DR GT SCH (05:30)
[2018-11-03 07:33] VITALS: BP 106/50
[2018-11-03] MEDS: SIMETHICONE SUSP 40 MG/0.6 ML BOTTLE GT SCH ×2 (09:27→20:50)
[2018-11-03] MEDS: CARVEDILOL 3.125 MG TABLET GT SCH ×2 (09:27→20:50)
[2018-11-03] MEDS: HYDROGEN PEROXIDE 480 ML BOTTLE TP SCH ×2 (09:27→20:50)
[2018-11-03] MEDS: FERROUS SULFATE - FOR SA ONLY 330 MG/7.5 ML UDC GT SCH ×2 (09:27→16:43)
[2018-11-03] MEDS: POLYVINYL ALCOHOL 15 ML BOTTLE OP SCH ×4 (09:27→20:50)
[2018-11-03] MEDS: ACIDOPHILUS/BULGARICUS 1 EACH TAB.CHEW GT SCH ×2 (09:27→16:43)
[2018-11-03] MEDS: MIDODRINE HCL (5MG) 5 MG TABLET GT SCH ×2 (09:27→20:50)
[2018-11-03] MEDS: Z GUARD REMEDY 4 OZ OINT TP SCH ×2 (09:28→20:50)
[2018-11-03 10:00] VITALS: BP 106/50
[2018-11-03] MEDS: LORAZEPAM INJ 2 MG/ML VIAL IVP PRN (18:27)
[2018-11-03 20:31] VITALS: BP 101/50
[2018-11-03] MEDS: MULTIVIT W/MINERALS 1 TAB TABLET GT SCH (20:50)
[2018-11-03] MEDS: SOD FERRIC GLUC 125 MG in IV NS 0.9% 100 ML IV SCH (21:01)
[2018-11-03] MEDS: LANOLIN/MIN OIL/PETROLAT,WHT 3.5 GM TUBE EACHEYE SCH (21:24)
[2018-11-03 22:24] VITALS: BP 101/48
[2018-11-04] MEDS: IPRATROPIUM NEB FS 0.5 MG/2.5 ML AMPUL.NEB NEB SCH ×4 (00:34→19:44)
[2018-11-04] MEDS: BACLOFEN (10 MG) 10 MG TABLET GT SCH ×2 (05:24→17:42)
[2018-11-04] MEDS: OMEPRAZOLE 20 MG CAPSULE.DR GT SCH (05:24)
[2018-11-04] MEDS: TWOCAL HN 1,000 ML LIQUID GT PRN (05:25)
[2018-11-04 08:14] VITALS: BP 110/68
[2018-11-04] MEDS: FERROUS SULFATE - FOR SA ONLY 330 MG/7.5 ML UDC GT SCH ×2 (08:35→17:42)
[2018-11-04] MEDS: POLYVINYL ALCOHOL 15 ML BOTTLE OP SCH ×4 (08:35→21:00)
[2018-11-04] MEDS: SIMETHICONE SUSP 40 MG/0.6 ML BOTTLE GT SCH ×2 (08:35→20:59)
[2018-11-04] MEDS: ACIDOPHILUS/BULGARICUS 1 EACH TAB.CHEW GT SCH ×2 (08:35→17:42)
[2018-11-04] MEDS: CARVEDILOL 3.125 MG TABLET GT SCH ×2 (08:35→20:59)
[2018-11-04] MEDS: MIDODRINE HCL (5MG) 5 MG TABLET GT SCH ×2 (08:35→21:00)
[2018-11-04] MEDS: HYDROGEN PEROXIDE 480 ML BOTTLE TP SCH ×2 (09:00→21:00)
[2018-11-04] MEDS: Z GUARD REMEDY 4 OZ OINT TP SCH ×2 (09:00→21:00)
[2018-11-04 12:00] VITALS: BP 110/58
[2018-11-04 20:03] VITALS: BP 106/76
[2018-11-04] MEDS: MULTIVIT W/MINERALS 1 TAB TABLET GT SCH (21:00)
[2018-11-04] MEDS: LANOLIN/MIN OIL/PETROLAT,WHT 3.5 GM TUBE EACHEYE SCH (21:00)
[2018-11-04] MEDS: SOD FERRIC GLUC 125 MG in IV NS 0.9% 100 ML IV SCH (21:01)
[2018-11-04 22:30] VITALS: BP 106/76
[2018-11-05] MEDS: IPRATROPIUM NEB FS 0.5 MG/2.5 ML AMPUL.NEB NEB SCH ×4 (00:53→19:42)
[2018-11-05] MEDS: TWOCAL HN 1,000 ML LIQUID GT PRN (05:14)
[2018-11-05] MEDS: BACLOFEN (10 MG) 10 MG TABLET GT SCH ×2 (05:14→17:07)
[2018-11-05] MEDS: OMEPRAZOLE 20 MG CAPSULE.DR GT SCH (05:14)
[2018-11-05 07:42] VITALS: BP 107/61
[2018-11-05] MEDS: FERROUS SULFATE - FOR SA ONLY 330 MG/7.5 ML UDC GT SCH ×2 (08:30→17:07)
[2018-11-05] MEDS: SIMETHICONE SUSP 40 MG/0.6 ML BOTTLE GT SCH ×2 (08:30→20:18)
[2018-11-05] MEDS: CARVEDILOL 3.125 MG TABLET GT SCH ×2 (08:30→20:18)
[2018-11-05] MEDS: ACIDOPHILUS/BULGARICUS 1 EACH TAB.CHEW GT SCH ×2 (08:30→17:07)
[2018-11-05] MEDS: Z GUARD REMEDY 4 OZ OINT TP SCH ×2 (08:31→20:19)
[2018-11-05] MEDS: POLYVINYL ALCOHOL 15 ML BOTTLE OP SCH ×4 (08:31→20:18)
[2018-11-05] MEDS: HYDROGEN PEROXIDE 480 ML BOTTLE TP SCH ×2 (08:31→20:19)
[2018-11-05] MEDS: MIDODRINE HCL (5MG) 5 MG TABLET GT SCH ×2 (08:31→20:18)
[2018-11-05 10:00] VITALS: BP 107/61
[2018-11-05] MEDS: MULTIVIT W/MINERALS 1 TAB TABLET GT SCH (20:18)
[2018-11-05 20:26] VITALS: BP 145/68
[2018-11-05] MEDS: LANOLIN/MIN OIL/PETROLAT,WHT 3.5 GM TUBE EACHEYE SCH (21:09)
[2018-11-05 23:05] VITALS: BP 145/68
[2018-11-06] MEDS: IPRATROPIUM NEB FS 0.5 MG/2.5 ML AMPUL.NEB NEB SCH ×4 (01:31→19:43)
[2018-11-06] MEDS: TWOCAL HN 1,000 ML LIQUID GT PRN (05:16)
[2018-11-06] MEDS: BACLOFEN (10 MG) 10 MG TABLET GT SCH ×2 (05:16→17:42)
[2018-11-06] MEDS: OMEPRAZOLE 20 MG CAPSULE.DR GT SCH (05:16)
[2018-11-06 08:11] VITALS: BP 111/74
[2018-11-06] MEDS: Z GUARD REMEDY 4 OZ OINT TP SCH ×2 (09:00→21:20)
[2018-11-06] MEDS: HYDROGEN PEROXIDE 480 ML BOTTLE TP SCH ×2 (09:00→21:20)
[2018-11-06] MEDS: FERROUS SULFATE - FOR SA ONLY 330 MG/7.5 ML UDC GT SCH ×2 (09:11→17:41)
[2018-11-06] MEDS: CARVEDILOL 3.125 MG TABLET GT SCH ×2 (09:11→21:20)
[2018-11-06] MEDS: ACIDOPHILUS/BULGARICUS 1 EACH TAB.CHEW GT SCH ×2 (09:11→17:42)
[2018-11-06] MEDS: POLYVINYL ALCOHOL 15 ML BOTTLE OP SCH ×4 (09:13→21:20)
[2018-11-06] MEDS: SIMETHICONE SUSP 40 MG/0.6 ML BOTTLE GT SCH ×2 (09:13→21:20)
[2018-11-06 10:00] VITALS: BP 109/58
[2018-11-06] MEDS: MIDODRINE HCL (5MG) 5 MG TABLET GT SCH ×2 (10:00→21:20)
[2018-11-06 20:15] VITALS: BP 107/50
[2018-11-06] MEDS: MULTIVIT W/MINERALS 1 TAB TABLET GT SCH (21:20)
[2018-11-06] MEDS: LANOLIN/MIN OIL/PETROLAT,WHT 3.5 GM TUBE EACHEYE SCH (21:21)
[2018-11-06 22:00] VITALS: BP 115/64
[2018-11-07] MEDS: IPRATROPIUM NEB FS 0.5 MG/2.5 ML AMPUL.NEB NEB SCH ×4 (01:38→19:30)
[2018-11-07] MEDS: OMEPRAZOLE 20 MG CAPSULE.DR GT SCH (05:51)
[2018-11-07] MEDS: BACLOFEN (10 MG) 10 MG TABLET GT SCH ×2 (05:51→17:46)
[2018-11-07 08:01] VITALS: BP 123/55
[2018-11-07] MEDS: CARVEDILOL 3.125 MG TABLET GT SCH ×2 (08:38→20:49)
[2018-11-07] MEDS: FERROUS SULFATE - FOR SA ONLY 330 MG/7.5 ML UDC GT SCH ×2 (08:38→17:46)
[2018-11-07] MEDS: SIMETHICONE SUSP 40 MG/0.6 ML BOTTLE GT SCH ×2 (08:39→20:49)
[2018-11-07] MEDS: ACIDOPHILUS/BULGARICUS 1 EACH TAB.CHEW GT SCH ×2 (08:39→17:46)
[2018-11-07] MEDS: POLYVINYL ALCOHOL 15 ML BOTTLE OP SCH ×4 (08:40→20:50)
[2018-11-07] MEDS: MIDODRINE HCL (5MG) 5 MG TABLET GT SCH ×2 (08:40→20:49)
[2018-11-07] MEDS: Z GUARD REMEDY 4 OZ OINT TP SCH ×2 (09:00→20:50)
[2018-11-07] MEDS: HYDROGEN PEROXIDE 480 ML BOTTLE TP SCH ×2 (09:00→20:50)
[2018-11-07] MEDS: TWOCAL HN 1,000 ML LIQUID GT PRN (13:12)
[2018-11-07 14:17] VITALS: BP 123/55
[2018-11-07 20:32] VITALS: BP 109/59
[2018-11-07] MEDS: MULTIVIT W/MINERALS 1 TAB TABLET GT SCH (20:50)
[2018-11-07 22:32] VITALS: BP 116/60
[2018-11-07] MEDS: LANOLIN/MIN OIL/PETROLAT,WHT 3.5 GM TUBE EACHEYE SCH (22:35)
[2018-11-08] MEDS: IPRATROPIUM NEB FS 0.5 MG/2.5 ML AMPUL.NEB NEB SCH ×4 (00:55→19:58)
[2018-11-08] MEDS: BACLOFEN (10 MG) 10 MG TABLET GT SCH ×2 (05:29→17:55)
[2018-11-08] MEDS: OMEPRAZOLE 20 MG CAPSULE.DR GT SCH (05:29)
[2018-11-08 07:44] VITALS: BP 107/55
[2018-11-08] MEDS: SIMETHICONE SUSP 40 MG/0.6 ML BOTTLE GT SCH ×2 (08:36→21:07)
[2018-11-08] MEDS: ACIDOPHILUS/BULGARICUS 1 EACH TAB.CHEW GT SCH ×2 (08:36→17:55)
[2018-11-08] MEDS: CARVEDILOL 3.125 MG TABLET GT SCH ×2 (08:36→21:01)
[2018-11-08] MEDS: FERROUS SULFATE - FOR SA ONLY 330 MG/7.5 ML UDC GT SCH ×2 (08:36→17:55)
[2018-11-08] MEDS: MIDODRINE HCL (5MG) 5 MG TABLET GT SCH ×2 (08:37→21:03)
[2018-11-08] MEDS: POLYVINYL ALCOHOL 15 ML BOTTLE OP SCH ×4 (08:37→21:03)
[2018-11-08] MEDS: Z GUARD REMEDY 4 OZ OINT TP SCH ×2 (08:37→21:03)
[2018-11-08] MEDS: HYDROGEN PEROXIDE 480 ML BOTTLE TP SCH ×2 (08:37→21:03)
[2018-11-08 10:00] VITALS: BP 111/67
[2018-11-08 20:44] VITALS: BP 120/62
[2018-11-08] MEDS: LANOLIN/MIN OIL/PETROLAT,WHT 3.5 GM TUBE EACHEYE SCH (21:04)
[2018-11-08] MEDS: MULTIVIT W/MINERALS 1 TAB TABLET GT SCH (21:06)
[2018-11-08 22:00] VITALS: BP 120/62
[2018-11-09] MEDS: IPRATROPIUM NEB FS 0.5 MG/2.5 ML AMPUL.NEB NEB SCH ×4 (01:28→20:25)
[2018-11-09] MEDS: OMEPRAZOLE 20 MG CAPSULE.DR GT SCH (05:59)
[2018-11-09] MEDS: BACLOFEN (10 MG) 10 MG TABLET GT SCH ×2 (06:00→17:34)
[2018-11-09] MEDS: FERROUS SULFATE - FOR SA ONLY 330 MG/7.5 ML UDC GT SCH ×2 (09:51→17:34)
[2018-11-09] MEDS: ACIDOPHILUS/BULGARICUS 1 EACH TAB.CHEW GT SCH ×2 (09:51→17:34)
[2018-11-09] MEDS: HYDROGEN PEROXIDE 480 ML BOTTLE TP SCH ×2 (09:51→20:20)
[2018-11-09] MEDS: MIDODRINE HCL (5MG) 5 MG TABLET GT SCH ×2 (09:51→20:20)
[2018-11-09] MEDS: CARVEDILOL 3.125 MG TABLET GT SCH ×2 (09:51→20:20)
[2018-11-09] MEDS: Z GUARD REMEDY 4 OZ OINT TP SCH ×2 (09:51→20:20)
[2018-11-09] MEDS: SIMETHICONE SUSP 40 MG/0.6 ML BOTTLE GT SCH ×2 (09:51→20:20)
[2018-11-09] MEDS: POLYVINYL ALCOHOL 15 ML BOTTLE OP SCH ×4 (09:51→20:20)
[2018-11-09 10:04] VITALS: BP 106/66
[2018-11-09] MEDS: LORAZEPAM INJ 2 MG/ML VIAL IVP PRN (10:15)
[2018-11-09 15:44] VITALS: BP 106/66
[2018-11-09] MEDS: TWOCAL HN 1,000 ML LIQUID GT PRN (18:33)
[2018-11-09] MEDS: MULTIVIT W/MINERALS 1 TAB TABLET GT SCH (20:20)
[2018-11-09 20:30] VITALS: BP 118/70
[2018-11-09] MEDS: LANOLIN/MIN OIL/PETROLAT,WHT 3.5 GM TUBE EACHEYE SCH (21:53)
[2018-11-09 22:21] VITALS: BP 120/70
[2018-11-10] MEDS: IPRATROPIUM NEB FS 0.5 MG/2.5 ML AMPUL.NEB NEB SCH ×4 (01:22→19:58)
[2018-11-10] MEDS: BACLOFEN (10 MG) 10 MG TABLET GT SCH ×2 (06:02→17:08)
[2018-11-10] MEDS: OMEPRAZOLE 20 MG CAPSULE.DR GT SCH (06:02)
[2018-11-10 08:02] VITALS: BP 108/75
[2018-11-10] MEDS: POLYVINYL ALCOHOL 15 ML BOTTLE OP SCH ×4 (09:04→20:36)
[2018-11-10] MEDS: ACIDOPHILUS/BULGARICUS 1 EACH TAB.CHEW GT SCH ×2 (09:04→17:08)
[2018-11-10] MEDS: MIDODRINE HCL (5MG) 5 MG TABLET GT SCH ×2 (09:04→20:35)
[2018-11-10] MEDS: CARVEDILOL 3.125 MG TABLET GT SCH ×2 (09:04→20:35)
[2018-11-10] MEDS: Z GUARD REMEDY 4 OZ OINT TP SCH ×2 (09:04→20:36)
[2018-11-10] MEDS: FERROUS SULFATE - FOR SA ONLY 330 MG/7.5 ML UDC GT SCH ×2 (09:04→17:08)
[2018-11-10] MEDS: SIMETHICONE SUSP 40 MG/0.6 ML BOTTLE GT SCH ×2 (09:04→20:35)
[2018-11-10] MEDS: HYDROGEN PEROXIDE 480 ML BOTTLE TP SCH ×2 (09:04→20:36)
[2018-11-10 15:24] VITALS: BP 108/78
[2018-11-10 20:25] VITALS: BP 123/80
[2018-11-10] MEDS: MULTIVIT W/MINERALS 1 TAB TABLET GT SCH (20:36)
[2018-11-10] MEDS: LANOLIN/MIN OIL/PETROLAT,WHT 3.5 GM TUBE EACHEYE SCH (21:25)
[2018-11-10 22:32] VITALS: BP 136/70
[2018-11-11] MEDS: TWOCAL HN 1,000 ML LIQUID GT PRN (00:06)
[2018-11-11] MEDS: IPRATROPIUM NEB FS 0.5 MG/2.5 ML AMPUL.NEB NEB SCH ×4 (01:30→20:16)
[2018-11-11] MEDS: LACTULOSE 10 G/15 ML UDC (PYXIS) GT PRN (05:32)
[2018-11-11] MEDS: OMEPRAZOLE 20 MG CAPSULE.DR GT SCH (05:32)
[2018-11-11] MEDS: BACLOFEN (10 MG) 10 MG TABLET GT SCH ×2 (05:32→17:02)
[2018-11-11 07:36] VITALS: BP 112/52
[2018-11-11] MEDS: ACIDOPHILUS/BULGARICUS 1 EACH TAB.CHEW GT SCH ×2 (09:00→17:02)
[2018-11-11] MEDS: SIMETHICONE SUSP 40 MG/0.6 ML BOTTLE GT SCH ×2 (09:00→20:32)
[2018-11-11] MEDS: HYDROGEN PEROXIDE 480 ML BOTTLE TP SCH ×2 (09:00→20:33)
[2018-11-11] MEDS: POLYVINYL ALCOHOL 15 ML BOTTLE OP SCH ×4 (09:00→20:33)
[2018-11-11] MEDS: CARVEDILOL 3.125 MG TABLET GT SCH ×2 (09:00→20:32)
[2018-11-11] MEDS: MIDODRINE HCL (5MG) 5 MG TABLET GT SCH ×2 (09:00→20:32)
[2018-11-11] MEDS: Z GUARD REMEDY 4 OZ OINT TP SCH ×2 (09:00→20:33)
[2018-11-11] MEDS: FERROUS SULFATE - FOR SA ONLY 330 MG/7.5 ML UDC GT SCH ×2 (09:00→17:02)
[2018-11-11 10:00] VITALS: BP 112/52
[2018-11-11 20:11] VITALS: BP 139/70
[2018-11-11] MEDS: MULTIVIT W/MINERALS 1 TAB TABLET GT SCH (20:33)
[2018-11-11] MEDS: LANOLIN/MIN OIL/PETROLAT,WHT 3.5 GM TUBE EACHEYE SCH (21:04)
[2018-11-11 22:20] VITALS: BP 125/77
[2018-11-12] MEDS: IPRATROPIUM NEB FS 0.5 MG/2.5 ML AMPUL.NEB NEB SCH ×4 (02:15→19:58)
[2018-11-12] MEDS: OMEPRAZOLE 20 MG CAPSULE.DR GT SCH (05:27)
[2018-11-12] MEDS: BACLOFEN (10 MG) 10 MG TABLET GT SCH ×2 (05:27→17:05)
[2018-11-12] MEDS: TWOCAL HN 1,000 ML LIQUID GT PRN (05:27)
[2018-11-12 07:59] VITALS: BP 105/62
[2018-11-12] MEDS: FERROUS SULFATE - FOR SA ONLY 330 MG/7.5 ML UDC GT SCH ×2 (09:30→17:05)
[2018-11-12] MEDS: CARVEDILOL 3.125 MG TABLET GT SCH ×2 (09:30→20:18)
[2018-11-12] MEDS: ACIDOPHILUS/BULGARICUS 1 EACH TAB.CHEW GT SCH ×2 (09:30→17:05)
[2018-11-12] MEDS: SIMETHICONE SUSP 40 MG/0.6 ML BOTTLE GT SCH ×2 (09:30→20:18)
[2018-11-12] MEDS: Z GUARD REMEDY 4 OZ OINT TP SCH ×2 (09:31→20:19)
[2018-11-12] MEDS: POLYVINYL ALCOHOL 15 ML BOTTLE OP SCH ×4 (09:31→20:19)
[2018-11-12] MEDS: MIDODRINE HCL (5MG) 5 MG TABLET GT SCH ×2 (09:31→20:19)
[2018-11-12] MEDS: HYDROGEN PEROXIDE 480 ML BOTTLE TP SCH ×2 (09:31→20:19)
[2018-11-12 10:00] VITALS: BP 105/62
[2018-11-12] MEDS: MULTIVIT W/MINERALS 1 TAB TABLET GT SCH (20:19)
[2018-11-12 20:53] VITALS: BP 95/52
[2018-11-12] MEDS: LANOLIN/MIN OIL/PETROLAT,WHT 3.5 GM TUBE EACHEYE SCH (21:05)
[2018-11-12 22:37] VITALS: BP 122/54
[2018-11-13] MEDS: IPRATROPIUM NEB FS 0.5 MG/2.5 ML AMPUL.NEB NEB SCH ×4 (01:51→19:54)
[2018-11-13] MEDS: BACLOFEN (10 MG) 10 MG TABLET GT SCH ×2 (05:27→17:21)
[2018-11-13] MEDS: OMEPRAZOLE 20 MG CAPSULE.DR GT SCH (05:27)
[2018-11-13] MEDS: TWOCAL HN 1,000 ML LIQUID GT PRN (05:27)
[2018-11-13 08:14] VITALS: BP 92/46
[2018-11-13] MEDS: POLYVINYL ALCOHOL 15 ML BOTTLE OP SCH ×4 (09:12→21:32)
[2018-11-13] MEDS: FERROUS SULFATE - FOR SA ONLY 330 MG/7.5 ML UDC GT SCH ×2 (09:12→17:21)
[2018-11-13] MEDS: ACIDOPHILUS/BULGARICUS 1 EACH TAB.CHEW GT SCH ×2 (09:12→17:21)
[2018-11-13] MEDS: Z GUARD REMEDY 4 OZ OINT TP SCH ×2 (09:12→21:32)
[2018-11-13] MEDS: MIDODRINE HCL (5MG) 5 MG TABLET GT SCH ×2 (09:12→21:32)
[2018-11-13] MEDS: CARVEDILOL 3.125 MG TABLET GT SCH ×2 (09:12→21:32)
[2018-11-13] MEDS: SIMETHICONE SUSP 40 MG/0.6 ML BOTTLE GT SCH ×2 (09:12→21:32)
[2018-11-13] MEDS: HYDROGEN PEROXIDE 480 ML BOTTLE TP SCH ×2 (09:12→21:32)
[2018-11-13 10:00] VITALS: BP 98/53
[2018-11-13] MEDS: LORAZEPAM INJ 2 MG/ML VIAL IVP PRN (13:34)
[2018-11-13 19:41] VITALS: BP 107/66
[2018-11-13] MEDS: MULTIVIT W/MINERALS 1 TAB TABLET GT SCH (21:32)
[2018-11-13] MEDS: LANOLIN/MIN OIL/PETROLAT,WHT 3.5 GM TUBE EACHEYE SCH (21:32)
[2018-11-13 22:00] VITALS: BP 125/68
[2018-11-14] MEDS: IPRATROPIUM NEB FS 0.5 MG/2.5 ML AMPUL.NEB NEB SCH ×4 (01:31→20:09)
[2018-11-14] MEDS: BACLOFEN (10 MG) 10 MG TABLET GT SCH ×2 (05:42→17:11)
[2018-11-14] MEDS: TWOCAL HN 1,000 ML LIQUID GT PRN (05:42)
[2018-11-14] MEDS: OMEPRAZOLE 20 MG CAPSULE.DR GT SCH (05:42)
[2018-11-14 08:01] VITALS: BP 105/64
[2018-11-14] MEDS: HYDROGEN PEROXIDE 480 ML BOTTLE TP SCH ×2 (09:45→21:08)
[2018-11-14] MEDS: SIMETHICONE SUSP 40 MG/0.6 ML BOTTLE GT SCH ×2 (09:45→21:07)
[2018-11-14] MEDS: Z GUARD REMEDY 4 OZ OINT TP SCH ×2 (09:45→21:08)
[2018-11-14] MEDS: POLYVINYL ALCOHOL 15 ML BOTTLE OP SCH ×4 (09:45→21:08)
[2018-11-14] MEDS: FERROUS SULFATE - FOR SA ONLY 330 MG/7.5 ML UDC GT SCH ×2 (09:45→17:11)
[2018-11-14] MEDS: ACIDOPHILUS/BULGARICUS 1 EACH TAB.CHEW GT SCH ×2 (09:45→17:11)
[2018-11-14] MEDS: CARVEDILOL 3.125 MG TABLET GT SCH ×2 (09:45→21:07)
[2018-11-14] MEDS: MIDODRINE HCL (5MG) 5 MG TABLET GT SCH ×2 (09:45→21:07)
[2018-11-14 10:00] VITALS: BP 105/64
[2018-11-14 20:30] VITALS: BP 116/69
[2018-11-14] MEDS: MULTIVIT W/MINERALS 1 TAB TABLET GT SCH (21:07)
[2018-11-14] MEDS: LANOLIN/MIN OIL/PETROLAT,WHT 3.5 GM TUBE EACHEYE SCH (21:08)
[2018-11-14 22:56] VITALS: BP 112/62
[2018-11-15] MEDS: IPRATROPIUM NEB FS 0.5 MG/2.5 ML AMPUL.NEB NEB SCH ×4 (02:05→20:06)
[2018-11-15] MEDS: BACLOFEN (10 MG) 10 MG TABLET GT SCH ×2 (05:54→18:04)
[2018-11-15] MEDS: OMEPRAZOLE 20 MG CAPSULE.DR GT SCH (05:54)
[2018-11-15 06:29] LABS: BASOPHILS # (AUTO) 0.1 /CMM (0.0-0.2); EOSINOPHILS % (AUTO) 3.4 % (0.0-6.0); HEMATOCRIT 31 % (33-45); HEMOGLOBIN 9.5 g/dL (11.5-14.8); LYMPHOCYTES # (AUTO) 2.7 /CMM (0.8-4.8); LYMPHOCYTES % (AUTO) 43.6 % (20.0-44.0); MEAN CORPUSCULAR HGB CONC 30 g/dl (31.0-36.0); MEAN CORPUSCULAR VOLUME 84 fL (82-100); MONOCYTES # (AUTO) 0.6 /CMM (0.1-1.30); MONOCYTES % (AUTO) 9.5 % (2.0-12.0); NEUTROPHILS # (AUTO) 2.6 /CMM (1.8-8.9); NEUTROPHILS % (AUTO) 42.5 % (43.0-81.0); PLATELET COUNT (AUTO) 229 /CMM (150-450); WHITE BLOOD COUNT (AUTO) 6.1 K/uL (4.3-11.0)
[2018-11-15 06:50] LABS: CALCIUM, SERUM 9.2 mg/dL (8.5-10.1); CREATININE 0.6 mg/dL (0.6-1.3); MAGNESIUM 2.3 mg/dL (1.8-2.4); PHOSPHORUS 3.3 mg/dL (2.5-4.9); POTASSIUM 3.7 mmol/L (3.5-5.1)
[2018-11-15 07:44] VITALS: BP 96/56
[2018-11-15] MEDS: FERROUS SULFATE - FOR SA ONLY 330 MG/7.5 ML UDC GT SCH ×2 (09:17→16:21)
[2018-11-15] MEDS: ACIDOPHILUS/BULGARICUS 1 EACH TAB.CHEW GT SCH ×2 (09:17→16:21)
[2018-11-15] MEDS: CARVEDILOL 3.125 MG TABLET GT SCH ×2 (09:17→21:43)
[2018-11-15] MEDS: SIMETHICONE SUSP 40 MG/0.6 ML BOTTLE GT SCH ×2 (09:17→21:43)
[2018-11-15] MEDS: HYDROGEN PEROXIDE 480 ML BOTTLE TP SCH ×2 (09:18→21:43)
[2018-11-15] MEDS: Z GUARD REMEDY 4 OZ OINT TP SCH ×2 (09:18→21:43)
[2018-11-15] MEDS: POLYVINYL ALCOHOL 15 ML BOTTLE OP SCH ×4 (09:18→21:43)
[2018-11-15] MEDS: MIDODRINE HCL (5MG) 5 MG TABLET GT SCH ×2 (09:18→21:43)
[2018-11-15 10:00] VITALS: BP 96/56
[2018-11-15] MEDS: LANOLIN/MIN OIL/PETROLAT,WHT 3.5 GM TUBE EACHEYE SCH (21:43)
[2018-11-15] MEDS: MULTIVIT W/MINERALS 1 TAB TABLET GT SCH (21:43)
[2018-11-15 22:43] VITALS: BP 116/72
[2018-11-16] MEDS: IPRATROPIUM NEB FS 0.5 MG/2.5 ML AMPUL.NEB NEB SCH ×4 (02:26→19:41)
[2018-11-16] MEDS: OMEPRAZOLE 20 MG CAPSULE.DR GT SCH (05:48)
[2018-11-16] MEDS: BACLOFEN (10 MG) 10 MG TABLET GT SCH ×2 (05:48→18:04)
[2018-11-16 07:16] VITALS: BP 126/69
[2018-11-16 08:19] VITALS: BP 135/59
[2018-11-16] MEDS: Z GUARD REMEDY 4 OZ OINT TP SCH ×2 (09:00→21:54)
[2018-11-16] MEDS: SIMETHICONE SUSP 40 MG/0.6 ML BOTTLE GT SCH ×2 (09:00→21:54)
[2018-11-16] MEDS: HYDROGEN PEROXIDE 480 ML BOTTLE TP SCH ×2 (09:00→21:54)
[2018-11-16] MEDS: POLYVINYL ALCOHOL 15 ML BOTTLE OP SCH ×4 (09:00→21:54)
[2018-11-16] MEDS: ACIDOPHILUS/BULGARICUS 1 EACH TAB.CHEW GT SCH ×2 (09:00→17:00)
[2018-11-16] MEDS: CARVEDILOL 3.125 MG TABLET GT SCH ×2 (09:00→21:54)
[2018-11-16] MEDS: MIDODRINE HCL (5MG) 5 MG TABLET GT SCH ×2 (09:00→21:54)
[2018-11-16] MEDS: FERROUS SULFATE - FOR SA ONLY 330 MG/7.5 ML UDC GT SCH ×2 (09:00→17:00)
[2018-11-16 10:00] VITALS: BP 135/56
[2018-11-16 20:27] VITALS: BP 108/68
[2018-11-16] MEDS: MULTIVIT W/MINERALS 1 TAB TABLET GT SCH (21:54)
[2018-11-16] MEDS: LANOLIN/MIN OIL/PETROLAT,WHT 3.5 GM TUBE EACHEYE SCH (21:55)
[2018-11-16] MEDS: TWOCAL HN 1,000 ML LIQUID GT PRN (21:55)
[2018-11-16 22:44] VITALS: BP 116/66
[2018-11-17] MEDS: IPRATROPIUM NEB FS 0.5 MG/2.5 ML AMPUL.NEB NEB SCH ×4 (01:20→19:22)
[2018-11-17] MEDS: BACLOFEN (10 MG) 10 MG TABLET GT SCH ×2 (05:54→17:40)
[2018-11-17] MEDS: OMEPRAZOLE 20 MG CAPSULE.DR GT SCH (05:54)
[2018-11-17 08:10] VITALS: BP 108/66
[2018-11-17] MEDS: ACIDOPHILUS/BULGARICUS 1 EACH TAB.CHEW GT SCH ×2 (09:15→17:40)
[2018-11-17] MEDS: POLYVINYL ALCOHOL 15 ML BOTTLE OP SCH ×4 (09:15→21:06)
[2018-11-17] MEDS: Z GUARD REMEDY 4 OZ OINT TP SCH ×2 (09:15→21:06)
[2018-11-17] MEDS: FERROUS SULFATE - FOR SA ONLY 330 MG/7.5 ML UDC GT SCH ×2 (09:15→17:40)
[2018-11-17] MEDS: SIMETHICONE SUSP 40 MG/0.6 ML BOTTLE GT SCH ×2 (09:15→21:05)
[2018-11-17] MEDS: HYDROGEN PEROXIDE 480 ML BOTTLE TP SCH ×2 (09:15→21:06)
[2018-11-17] MEDS: MIDODRINE HCL (5MG) 5 MG TABLET GT SCH ×2 (09:16→21:00)
[2018-11-17] MEDS: CARVEDILOL 3.125 MG TABLET GT SCH ×2 (09:16→21:05)
[2018-11-17 10:00] VITALS: BP 108/66
[2018-11-17] MEDS: MULTIVIT W/MINERALS 1 TAB TABLET GT SCH (21:06)
[2018-11-17] MEDS: LANOLIN/MIN OIL/PETROLAT,WHT 3.5 GM TUBE EACHEYE SCH (21:06)
[2018-11-17 22:00] VITALS: BP 134/85
[2018-11-18] MEDS: TWOCAL HN 1,000 ML LIQUID GT PRN
[2018-11-18] MEDS: IPRATROPIUM NEB FS 0.5 MG/2.5 ML AMPUL.NEB NEB SCH ×4 (00:50→18:57)
[2018-11-18 02:09] VITALS: BP 134/85
[2018-11-18] MEDS: OMEPRAZOLE 20 MG CAPSULE.DR GT SCH (05:26)
[2018-11-18] MEDS: BACLOFEN (10 MG) 10 MG TABLET GT SCH ×2 (05:26→17:21)
[2018-11-18 07:43] VITALS: BP 119/66
[2018-11-18] MEDS: POLYVINYL ALCOHOL 15 ML BOTTLE OP SCH ×4 (09:58→21:02)
[2018-11-18] MEDS: MIDODRINE HCL (5MG) 5 MG TABLET GT SCH ×2 (09:58→21:01)
[2018-11-18] MEDS: CARVEDILOL 3.125 MG TABLET GT SCH ×2 (09:58→20:58)
[2018-11-18] MEDS: ACIDOPHILUS/BULGARICUS 1 EACH TAB.CHEW GT SCH ×2 (09:58→17:21)
[2018-11-18] MEDS: FERROUS SULFATE - FOR SA ONLY 330 MG/7.5 ML UDC GT SCH ×2 (09:58→17:21)
[2018-11-18] MEDS: SIMETHICONE SUSP 40 MG/0.6 ML BOTTLE GT SCH ×2 (09:58→21:01)
[2018-11-18] MEDS: Z GUARD REMEDY 4 OZ OINT TP SCH ×2 (09:59→21:02)
[2018-11-18] MEDS: HYDROGEN PEROXIDE 480 ML BOTTLE TP SCH ×2 (14:08→21:02)
[2018-11-18 14:36] VITALS: BP 119/66
[2018-11-18 20:22] VITALS: BP 121/63
[2018-11-18] MEDS: MULTIVIT W/MINERALS 1 TAB TABLET GT SCH (21:02)
[2018-11-18] MEDS: LANOLIN/MIN OIL/PETROLAT,WHT 3.5 GM TUBE EACHEYE SCH (21:02)
[2018-11-18 22:00] VITALS: BP 121/63
[2018-11-19] MEDS: IPRATROPIUM NEB FS 0.5 MG/2.5 ML AMPUL.NEB NEB SCH ×4 (00:31→20:06)
[2018-11-19] MEDS: OMEPRAZOLE 20 MG CAPSULE.DR GT SCH (05:58)
[2018-11-19] MEDS: BACLOFEN (10 MG) 10 MG TABLET GT SCH ×2 (05:58→17:22)
[2018-11-19] MEDS: HYDROGEN PEROXIDE 480 ML BOTTLE TP SCH ×2 (07:50→21:24)
[2018-11-19 07:54] VITALS: BP 117/56
[2018-11-19] MEDS: FERROUS SULFATE - FOR SA ONLY 330 MG/7.5 ML UDC GT SCH ×2 (08:38→17:22)
[2018-11-19] MEDS: FUROSEMIDE 40 MG TABLET GT SCH (08:38)
[2018-11-19] MEDS: CARVEDILOL 3.125 MG TABLET GT SCH ×2 (08:38→21:23)
[2018-11-19] MEDS: ACIDOPHILUS/BULGARICUS 1 EACH TAB.CHEW GT SCH ×2 (08:38→17:22)
[2018-11-19] MEDS: SIMETHICONE SUSP 40 MG/0.6 ML BOTTLE GT SCH ×2 (08:38→21:23)
[2018-11-19] MEDS: Z GUARD REMEDY 4 OZ OINT TP SCH ×2 (08:39→21:24)
[2018-11-19] MEDS: POLYVINYL ALCOHOL 15 ML BOTTLE OP SCH ×4 (08:39→21:24)
[2018-11-19] MEDS: MIDODRINE HCL (5MG) 5 MG TABLET GT SCH ×2 (08:39→21:24)
[2018-11-19 10:00] VITALS: BP 112/49
[2018-11-19 20:27] VITALS: BP 117/59
[2018-11-19] MEDS: MULTIVIT W/MINERALS 1 TAB TABLET GT SCH (21:24)
[2018-11-19] MEDS: LANOLIN/MIN OIL/PETROLAT,WHT 3.5 GM TUBE EACHEYE SCH (21:24)
[2018-11-19 22:35] VITALS: BP 120/62
[2018-11-20] MEDS: IPRATROPIUM NEB FS 0.5 MG/2.5 ML AMPUL.NEB NEB SCH ×4 (01:53→19:27)
[2018-11-20] MEDS: OMEPRAZOLE 20 MG CAPSULE.DR GT SCH (06:00)
[2018-11-20] MEDS: TWOCAL HN 1,000 ML LIQUID GT PRN (06:00)
[2018-11-20] MEDS: BACLOFEN (10 MG) 10 MG TABLET GT SCH ×2 (06:00→17:26)
[2018-11-20 07:49] VITALS: BP 113/65
[2018-11-20] MEDS: HYDROGEN PEROXIDE 480 ML BOTTLE TP SCH ×2 (09:00→21:14)
[2018-11-20] MEDS: SIMETHICONE SUSP 40 MG/0.6 ML BOTTLE GT SCH ×2 (09:00→21:11)
[2018-11-20] MEDS: MIDODRINE HCL (5MG) 5 MG TABLET GT SCH ×2 (09:00→21:12)
[2018-11-20] MEDS: ACIDOPHILUS/BULGARICUS 1 EACH TAB.CHEW GT SCH ×2 (09:00→17:26)
[2018-11-20] MEDS: FUROSEMIDE 40 MG TABLET GT SCH (09:00)
[2018-11-20] MEDS: POLYVINYL ALCOHOL 15 ML BOTTLE OP SCH ×4 (09:00→21:14)
[2018-11-20] MEDS: Z GUARD REMEDY 4 OZ OINT TP SCH ×2 (09:00→21:14)
[2018-11-20] MEDS: CARVEDILOL 3.125 MG TABLET GT SCH ×2 (09:00→21:09)
[2018-11-20] MEDS: FERROUS SULFATE - FOR SA ONLY 330 MG/7.5 ML UDC GT SCH ×2 (09:00→17:26)
[2018-11-20 16:48] VITALS: BP 116/68
[2018-11-20 20:00] VITALS: BP 126/68
[2018-11-20] MEDS: MULTIVIT W/MINERALS 1 TAB TABLET GT SCH (21:13)
[2018-11-20 22:01] VITALS: BP 105/55
[2018-11-20] MEDS: LANOLIN/MIN OIL/PETROLAT,WHT 3.5 GM TUBE EACHEYE SCH (22:06)
[2018-11-21] MEDS: IPRATROPIUM NEB FS 0.5 MG/2.5 ML AMPUL.NEB NEB SCH ×4 (01:18→19:45)
[2018-11-21] MEDS: BACLOFEN (10 MG) 10 MG TABLET GT SCH ×2 (05:09→17:10)
[2018-11-21] MEDS: OMEPRAZOLE 20 MG CAPSULE.DR GT SCH (05:09)
[2018-11-21 07:53] VITALS: BP 125/67
[2018-11-21] MEDS: Z GUARD REMEDY 4 OZ OINT TP SCH ×2 (09:00→21:00)
[2018-11-21] MEDS: ZINC OXIDE 30 GM TUBE TP SCH ×2 (09:00→21:00)
[2018-11-21] MEDS: MIDODRINE HCL (5MG) 5 MG TABLET GT SCH ×2 (09:00→21:00)
[2018-11-21] MEDS: HYDROGEN PEROXIDE 480 ML BOTTLE TP SCH ×2 (09:00→21:00)
[2018-11-21] MEDS: ACIDOPHILUS/BULGARICUS 1 EACH TAB.CHEW GT SCH ×2 (09:47→17:09)
[2018-11-21] MEDS: FUROSEMIDE 40 MG TABLET GT SCH (09:47)
[2018-11-21] MEDS: FERROUS SULFATE - FOR SA ONLY 330 MG/7.5 ML UDC GT SCH ×2 (09:47→17:09)
[2018-11-21] MEDS: CARVEDILOL 3.125 MG TABLET GT SCH ×2 (09:47→21:00)
[2018-11-21] MEDS: SIMETHICONE SUSP 40 MG/0.6 ML BOTTLE GT SCH ×2 (09:47→21:00)
[2018-11-21] MEDS: POLYVINYL ALCOHOL 15 ML BOTTLE OP SCH ×4 (09:49→21:00)
[2018-11-21 15:50] VITALS: BP 112/66
[2018-11-21] MEDS: TWOCAL HN 1,000 ML LIQUID GT PRN (16:08)
[2018-11-21 19:49] VITALS: BP 115/58
[2018-11-21] MEDS: MULTIVIT W/MINERALS 1 TAB TABLET GT SCH (21:00)
[2018-11-21 22:00] VITALS: BP 123/62
[2018-11-21] MEDS: LANOLIN/MIN OIL/PETROLAT,WHT 3.5 GM TUBE EACHEYE SCH (22:21)
[2018-11-22] MEDS: IPRATROPIUM NEB FS 0.5 MG/2.5 ML AMPUL.NEB NEB SCH ×4 (02:08→20:28)
[2018-11-22] MEDS: BACLOFEN (10 MG) 10 MG TABLET GT SCH ×2 (06:30→17:45)
[2018-11-22] MEDS: OMEPRAZOLE 20 MG CAPSULE.DR GT SCH (06:30)
[2018-11-22 07:20] VITALS: BP 116/58
[2018-11-22 07:20] LABS: BASOPHILS % (AUTO) 0.6 % (0.0-2.0); EOSINOPHILS % (AUTO) 4.4 % (0.0-6.0); HEMATOCRIT 30 % (33-45); HEMOGLOBIN 9.2 g/dL (11.5-14.8); LYMPHOCYTES # (AUTO) 2.1 /CMM (0.8-4.8); LYMPHOCYTES % (AUTO) 28.7 % (20.0-44.0); MEAN CORPUSCULAR HGB CONC 31 g/dl (31.0-36.0); MEAN CORPUSCULAR VOLUME 81 fL (82-100); MONOCYTES # (AUTO) 0.8 /CMM (0.1-1.30); MONOCYTES % (AUTO) 10.7 % (2.0-12.0); NEUTROPHILS # (AUTO) 4.1 /CMM (1.8-8.9); NEUTROPHILS % (AUTO) 55.6 % (43.0-81.0); PLATELET COUNT (AUTO) 274 /CMM (150-450); RED BLOOD CELL COUNT(AUTO) 3.68 MIL/uL (4.0-5.2); WHITE BLOOD COUNT (AUTO) 7.3 K/uL (4.3-11.0)
[2018-11-22 07:46] LABS: ALBUMIN 3.2 g/dL (3.4-5.0); BILIRUBIN,TOTAL 0.3 mg/dL (0.2-1.0); CALCIUM, SERUM 9.8 mg/dL (8.5-10.1); CREATININE 0.6 mg/dL (0.6-1.3); PHOSPHORUS 3.1 mg/dL (2.5-4.9); POTASSIUM 3.8 mmol/L (3.5-5.1); TOTAL PROTEIN, SERUM 9.1 g/dL (6.4-8.2)
[2018-11-22] MEDS: FUROSEMIDE 40 MG TABLET GT SCH (09:00)
[2018-11-22] MEDS: ACIDOPHILUS/BULGARICUS 1 EACH TAB.CHEW GT SCH ×2 (09:00→17:45)
[2018-11-22] MEDS: ZINC OXIDE 30 GM TUBE TP SCH ×2 (09:00→20:42)
[2018-11-22] MEDS: MIDODRINE HCL (5MG) 5 MG TABLET GT SCH ×2 (09:00→20:41)
[2018-11-22] MEDS: CARVEDILOL 3.125 MG TABLET GT SCH ×2 (09:00→20:37)
[2018-11-22] MEDS: SIMETHICONE SUSP 40 MG/0.6 ML BOTTLE GT SCH ×2 (09:00→20:37)
[2018-11-22] MEDS: Z GUARD REMEDY 4 OZ OINT TP SCH ×2 (09:00→20:42)
[2018-11-22] MEDS: POLYVINYL ALCOHOL 15 ML BOTTLE OP SCH ×4 (09:00→20:42)
[2018-11-22] MEDS: HYDROGEN PEROXIDE 480 ML BOTTLE TP SCH ×2 (09:00→20:28)
[2018-11-22] MEDS: FERROUS SULFATE - FOR SA ONLY 330 MG/7.5 ML UDC GT SCH ×2 (09:00→17:45)
[2018-11-22] MEDS: TWOCAL HN 1,000 ML LIQUID GT PRN (17:46)
[2018-11-22 18:14] VITALS: BP 116/79
[2018-11-22] MEDS: MULTIVIT W/MINERALS 1 TAB TABLET GT SCH (20:42)
[2018-11-22 20:49] VITALS: BP 129/66
[2018-11-22] MEDS: LANOLIN/MIN OIL/PETROLAT,WHT 3.5 GM TUBE EACHEYE SCH (21:26)
[2018-11-22 22:34] VITALS: BP 129/66
[2018-11-23] MEDS: IPRATROPIUM NEB FS 0.5 MG/2.5 ML AMPUL.NEB NEB SCH ×4 (02:35→19:30)
[2018-11-23] MEDS: BACLOFEN (10 MG) 10 MG TABLET GT SCH ×2 (05:51→18:02)
[2018-11-23] MEDS: OMEPRAZOLE 20 MG CAPSULE.DR GT SCH (05:51)
[2018-11-23 07:53] VITALS: BP 112/63
[2018-11-23] MEDS: FUROSEMIDE 40 MG TABLET GT SCH (09:00)
[2018-11-23] MEDS: HYDROGEN PEROXIDE 480 ML BOTTLE TP SCH ×2 (09:00→20:35)
[2018-11-23] MEDS: FERROUS SULFATE - FOR SA ONLY 330 MG/7.5 ML UDC GT SCH ×2 (09:00→17:00)
[2018-11-23] MEDS: CARVEDILOL 3.125 MG TABLET GT SCH ×2 (09:00→20:30)
[2018-11-23] MEDS: SIMETHICONE SUSP 40 MG/0.6 ML BOTTLE GT SCH ×2 (09:00→20:31)
[2018-11-23] MEDS: MIDODRINE HCL (5MG) 5 MG TABLET GT SCH ×2 (09:00→20:37)
[2018-11-23] MEDS: ZINC OXIDE 30 GM TUBE TP SCH ×8 (09:00→20:39)
[2018-11-23] MEDS: Z GUARD REMEDY 4 OZ OINT TP SCH ×2 (09:00→20:38)
[2018-11-23] MEDS: POLYVINYL ALCOHOL 15 ML BOTTLE OP SCH ×4 (09:00→20:38)
[2018-11-23] MEDS: ACIDOPHILUS/BULGARICUS 1 EACH TAB.CHEW GT SCH ×2 (09:00→17:00)
[2018-11-23 10:00] VITALS: BP 112/63
[2018-11-23] MEDS: MULTIVIT W/MINERALS 1 TAB TABLET GT SCH (20:38)
[2018-11-23 20:41] VITALS: BP 118/94
[2018-11-23] MEDS: LANOLIN/MIN OIL/PETROLAT,WHT 3.5 GM TUBE EACHEYE SCH (22:00)
[2018-11-23 22:48] VITALS: BP 118/94
[2018-11-23] MEDS: TWOCAL HN 1,000 ML LIQUID GT PRN (23:38)
[2018-11-24] MEDS: IPRATROPIUM NEB FS 0.5 MG/2.5 ML AMPUL.NEB NEB SCH ×4 (01:50→19:21)
[2018-11-24] MEDS: BACLOFEN (10 MG) 10 MG TABLET GT SCH ×2 (05:43→18:00)
[2018-11-24] MEDS: OMEPRAZOLE 20 MG CAPSULE.DR GT SCH (05:43)
[2018-11-24 07:54] VITALS: BP 116/69
[2018-11-24] MEDS: ZINC OXIDE 30 GM TUBE TP SCH ×8 (09:00→21:11)
[2018-11-24] MEDS: HYDROGEN PEROXIDE 480 ML BOTTLE TP SCH ×3 (09:00→21:11)
[2018-11-24] MEDS: Z GUARD REMEDY 4 OZ OINT TP SCH ×2 (09:00→21:11)
[2018-11-24] MEDS: FERROUS SULFATE - FOR SA ONLY 330 MG/7.5 ML UDC GT SCH ×2 (09:17→17:00)
[2018-11-24] MEDS: ACIDOPHILUS/BULGARICUS 1 EACH TAB.CHEW GT SCH ×2 (09:17→17:00)
[2018-11-24] MEDS: CARVEDILOL 3.125 MG TABLET GT SCH ×2 (09:17→21:09)
[2018-11-24] MEDS: POLYVINYL ALCOHOL 15 ML BOTTLE OP SCH ×4 (09:18→21:09)
[2018-11-24] MEDS: SIMETHICONE SUSP 40 MG/0.6 ML BOTTLE GT SCH ×2 (09:18→21:09)
[2018-11-24] MEDS: MIDODRINE HCL (5MG) 5 MG TABLET GT SCH ×2 (09:18→21:09)
[2018-11-24] MEDS: FUROSEMIDE 40 MG TABLET GT SCH (09:18)
[2018-11-24 10:00] VITALS: BP 117/70
[2018-11-24] MEDS ORDERED: DIATR MEGLU/DIATRIZOATE SODIUM 30 ML BOTTLE (GASTROGRAPHIN) ONE (19:08)
[2018-11-24 20:22] VITALS: BP 120/75
[2018-11-24] MEDS: MULTIVIT W/MINERALS 1 TAB TABLET GT SCH (21:09)
[2018-11-24] MEDS: LANOLIN/MIN OIL/PETROLAT,WHT 3.5 GM TUBE EACHEYE SCH (21:11)
[2018-11-24 22:05] VITALS: BP 118/76
[2018-11-25] MEDS: IPRATROPIUM NEB FS 0.5 MG/2.5 ML AMPUL.NEB NEB SCH ×4 (00:49→20:10)
[2018-11-25] MEDS: BACLOFEN (10 MG) 10 MG TABLET GT SCH ×2 (05:30→17:00)
[2018-11-25] MEDS: OMEPRAZOLE 20 MG CAPSULE.DR GT SCH (05:30)
[2018-11-25] MEDS: TWOCAL HN 1,000 ML LIQUID GT PRN (05:31)
[2018-11-25 07:17] LABS: BASOPHILS % (AUTO) 0.6 % (0.0-2.0); EOSINOPHILS % (AUTO) 6.6 % (0.0-6.0); HEMATOCRIT 32 % (33-45); HEMOGLOBIN 9.8 g/dL (11.5-14.8); LYMPHOCYTES # (AUTO) 2.2 /CMM (0.8-4.8); LYMPHOCYTES % (AUTO) 40.5 % (20.0-44.0); MEAN CORPUSCULAR HGB CONC 31 g/dl (31.0-36.0); MEAN CORPUSCULAR VOLUME 82 fL (82-100); MONOCYTES # (AUTO) 0.6 /CMM (0.1-1.30); MONOCYTES % (AUTO) 10.1 % (2.0-12.0); NEUTROPHILS # (AUTO) 2.3 /CMM (1.8-8.9); NEUTROPHILS % (AUTO) 42.2 % (43.0-81.0); PLATELET COUNT (AUTO) 273 /CMM (150-450); WHITE BLOOD COUNT (AUTO) 5.5 K/uL (4.3-11.0)
[2018-11-25 07:36] VITALS: BP 158/97
[2018-11-25 07:43] LABS: ALBUMIN 3.4 g/dL (3.4-5.0); BILIRUBIN,TOTAL 0.3 mg/dL (0.2-1.0); CALCIUM, SERUM 10.4 mg/dL (8.5-10.1); CREATININE 0.6 mg/dL (0.6-1.3); MAGNESIUM 2.3 mg/dL (1.8-2.4); PHOSPHORUS 3.6 mg/dL (2.5-4.9); POTASSIUM 4.3 mmol/L (3.5-5.1); TOTAL PROTEIN, SERUM 9.9 g/dL (6.4-8.2)
[2018-11-25] MEDS: HYDROGEN PEROXIDE 480 ML BOTTLE TP SCH ×2 (09:00→21:30)
[2018-11-25] MEDS: Z GUARD REMEDY 4 OZ OINT TP SCH ×2 (09:07→21:30)
[2018-11-25] MEDS: SIMETHICONE SUSP 40 MG/0.6 ML BOTTLE GT SCH ×2 (09:07→21:27)
[2018-11-25] MEDS: ZINC OXIDE 30 GM TUBE TP SCH ×8 (09:07→21:30)
[2018-11-25] MEDS: POLYVINYL ALCOHOL 15 ML BOTTLE OP SCH ×4 (09:07→21:30)
[2018-11-25] MEDS: ACIDOPHILUS/BULGARICUS 1 EACH TAB.CHEW GT SCH ×2 (09:08→16:59)
[2018-11-25] MEDS: FUROSEMIDE 40 MG TABLET GT SCH (09:08)
[2018-11-25] MEDS: MIDODRINE HCL (5MG) 5 MG TABLET GT SCH ×2 (09:08→21:26)
[2018-11-25] MEDS: FERROUS SULFATE - FOR SA ONLY 330 MG/7.5 ML UDC GT SCH ×2 (09:08→16:59)
[2018-11-25] MEDS: CARVEDILOL 3.125 MG TABLET GT SCH ×2 (09:09→21:25)
[2018-11-25 10:00] VITALS: BP 118/85
[2018-11-25 19:58] VITALS: BP 105/67
[2018-11-25] MEDS: MULTIVIT W/MINERALS 1 TAB TABLET GT SCH (21:29)
[2018-11-25] MEDS: LANOLIN/MIN OIL/PETROLAT,WHT 3.5 GM TUBE EACHEYE SCH (21:31)
[2018-11-25 22:00] VITALS: BP 105/67
[2018-11-26] MEDS: IPRATROPIUM NEB FS 0.5 MG/2.5 ML AMPUL.NEB NEB SCH ×4 (01:57→19:56)
[2018-11-26] MEDS: BACLOFEN (10 MG) 10 MG TABLET GT SCH ×2 (05:19→17:06)
[2018-11-26] MEDS: OMEPRAZOLE 20 MG CAPSULE.DR GT SCH (05:19)
[2018-11-26] MEDS: TWOCAL HN 1,000 ML LIQUID GT PRN (06:43)
[2018-11-26 07:27] VITALS: BP 119/74
[2018-11-26] MEDS: CARVEDILOL 3.125 MG TABLET GT SCH ×2 (08:48→20:34)
[2018-11-26] MEDS: FERROUS SULFATE - FOR SA ONLY 330 MG/7.5 ML UDC GT SCH ×2 (08:48→16:40)
[2018-11-26] MEDS: FUROSEMIDE 40 MG TABLET GT SCH (08:49)
[2018-11-26] MEDS: ACIDOPHILUS/BULGARICUS 1 EACH TAB.CHEW GT SCH ×2 (08:49→16:40)
[2018-11-26] MEDS: SIMETHICONE SUSP 40 MG/0.6 ML BOTTLE GT SCH ×2 (08:49→20:34)
[2018-11-26] MEDS: MIDODRINE HCL (5MG) 5 MG TABLET GT SCH ×2 (08:50→20:34)
[2018-11-26] MEDS: POLYVINYL ALCOHOL 15 ML BOTTLE OP SCH ×4 (08:50→20:34)
[2018-11-26] MEDS: ZINC OXIDE 30 GM TUBE TP SCH ×8 (09:00→20:34)
[2018-11-26] MEDS: Z GUARD REMEDY 4 OZ OINT TP SCH ×2 (09:00→20:34)
[2018-11-26] MEDS: HYDROGEN PEROXIDE 480 ML BOTTLE TP SCH ×2 (10:04→20:34)
[2018-11-26] MEDS ORDERED: TUBERCULIN,PURIF.PROT.DERIV. 5 TU/0.1 ML VIAL ID SCH (12:00)
[2018-11-26 13:20] VITALS: BP 116/80
[2018-11-26 20:00] VITALS: BP 134/64
[2018-11-26] MEDS: MULTIVIT W/MINERALS 1 TAB TABLET GT SCH (20:34)
[2018-11-26 22:00] VITALS: BP 120/68
[2018-11-26] MEDS: LANOLIN/MIN OIL/PETROLAT,WHT 3.5 GM TUBE EACHEYE SCH (22:00)
[2018-11-26] MEDS: LORAZEPAM 0.5 MG TABLET GT PRN (23:42)
[2018-11-27] MEDS: IPRATROPIUM NEB FS 0.5 MG/2.5 ML AMPUL.NEB NEB SCH ×4 (01:36→19:58)
[2018-11-27] MEDS: BACLOFEN (10 MG) 10 MG TABLET GT SCH ×2 (05:25→18:17)
[2018-11-27] MEDS: OMEPRAZOLE 20 MG CAPSULE.DR GT SCH (05:25)
[2018-11-27 07:25] VITALS: BP 127/79
[2018-11-27] MEDS: ZINC OXIDE 30 GM TUBE TP SCH ×8 (09:00→21:00)
[2018-11-27] MEDS: FUROSEMIDE 40 MG TABLET GT SCH (09:00)
[2018-11-27] MEDS: CARVEDILOL 3.125 MG TABLET GT SCH ×2 (09:00→21:00)
[2018-11-27] MEDS: MIDODRINE HCL (5MG) 5 MG TABLET GT SCH ×2 (09:00→21:00)
[2018-11-27] MEDS: Z GUARD REMEDY 4 OZ OINT TP SCH ×2 (09:00→21:00)
[2018-11-27] MEDS: FERROUS SULFATE - FOR SA ONLY 330 MG/7.5 ML UDC GT SCH ×2 (09:00→16:57)
[2018-11-27] MEDS: POLYVINYL ALCOHOL 15 ML BOTTLE OP SCH ×4 (09:00→21:00)
[2018-11-27] MEDS: ACIDOPHILUS/BULGARICUS 1 EACH TAB.CHEW GT SCH ×2 (09:00→16:57)
[2018-11-27] MEDS: SIMETHICONE SUSP 40 MG/0.6 ML BOTTLE GT SCH ×2 (09:00→21:00)
[2018-11-27 15:30] VITALS: BP 114/79
[2018-11-27 20:41] VITALS: BP 114/79
[2018-11-27] MEDS: MULTIVIT W/MINERALS 1 TAB TABLET GT SCH (21:00)
[2018-11-27] MEDS: HYDROGEN PEROXIDE 480 ML BOTTLE TP SCH (21:58)
[2018-11-27 22:00] VITALS: BP 110/62
[2018-11-27] MEDS: LANOLIN/MIN OIL/PETROLAT,WHT 3.5 GM TUBE EACHEYE SCH (22:37)
[2018-11-28] MEDS: IPRATROPIUM NEB FS 0.5 MG/2.5 ML AMPUL.NEB NEB SCH ×4 (01:34→19:53)
[2018-11-28] MEDS: OMEPRAZOLE 20 MG CAPSULE.DR GT SCH (05:54)
[2018-11-28] MEDS: BACLOFEN (10 MG) 10 MG TABLET GT SCH ×2 (05:54→17:59)
[2018-11-28 07:53] VITALS: BP 111/68
[2018-11-28] MEDS: MIDODRINE HCL (5MG) 5 MG TABLET GT SCH ×2 (09:00→20:36)
[2018-11-28] MEDS: POLYVINYL ALCOHOL 15 ML BOTTLE OP SCH ×4 (09:00→20:37)
[2018-11-28] MEDS: FUROSEMIDE 40 MG TABLET GT SCH (09:00)
[2018-11-28] MEDS: HYDROGEN PEROXIDE 480 ML BOTTLE TP SCH ×2 (09:00→20:37)
[2018-11-28] MEDS: ACIDOPHILUS/BULGARICUS 1 EACH TAB.CHEW GT SCH ×2 (09:00→16:45)
[2018-11-28] MEDS: ZINC OXIDE 30 GM TUBE TP SCH ×8 (09:00→20:37)
[2018-11-28] MEDS: SIMETHICONE SUSP 40 MG/0.6 ML BOTTLE GT SCH ×2 (09:00→20:36)
[2018-11-28] MEDS: Z GUARD REMEDY 4 OZ OINT TP SCH ×2 (09:00→20:37)
[2018-11-28] MEDS: CARVEDILOL 3.125 MG TABLET GT SCH ×2 (09:00→20:33)
[2018-11-28] MEDS: FERROUS SULFATE - FOR SA ONLY 330 MG/7.5 ML UDC GT SCH ×2 (09:00→16:45)
[2018-11-28 11:54] VITALS: BP 111/68
[2018-11-28 13:08] LABS: BASOPHILS # (AUTO) 0.1 /CMM (0.0-0.2); BASOPHILS % (AUTO) 0.9 % (0.0-2.0); EOSINOPHILS % (AUTO) 5.5 % (0.0-6.0); HEMATOCRIT 31 % (33-45); HEMOGLOBIN 9.6 g/dL (11.5-14.8); LYMPHOCYTES # (AUTO) 2.4 /CMM (0.8-4.8); LYMPHOCYTES % (AUTO) 35.1 % (20.0-44.0); MEAN CORPUSCULAR HGB CONC 31 g/dl (31.0-36.0); MEAN CORPUSCULAR VOLUME 81 fL (82-100); MONOCYTES # (AUTO) 0.7 /CMM (0.1-1.30); MONOCYTES % (AUTO) 10.4 % (2.0-12.0); NEUTROPHILS # (AUTO) 3.3 /CMM (1.8-8.9); NEUTROPHILS % (AUTO) 48.1 % (43.0-81.0); PLATELET COUNT (AUTO) 267 /CMM (150-450); RED BLOOD CELL COUNT(AUTO) 3.78 MIL/uL (4.0-5.2); WHITE BLOOD COUNT (AUTO) 6.8 K/uL (4.3-11.0)
[2018-11-28 13:21] LABS: CALCIUM, SERUM 9.7 mg/dL (8.5-10.1); CREATININE 0.6 mg/dL (0.6-1.3); POTASSIUM 3.7 mmol/L (3.5-5.1)
[2018-11-28 13:22] LABS: ALBUMIN 3.2 g/dL (3.4-5.0); BILIRUBIN,DIRECT 0.1 mg/dL (0.0-0.2); BILIRUBIN,TOTAL 0.2 mg/dL (0.2-1.0); TOTAL PROTEIN, SERUM 9.1 g/dL (6.4-8.2)
[2018-11-28] MEDS: TWOCAL HN 1,000 ML LIQUID GT PRN (16:11)
[2018-11-28 20:11] VITALS: BP 116/72
[2018-11-28] MEDS: MULTIVIT W/MINERALS 1 TAB TABLET GT SCH (20:37)
[2018-11-28] MEDS: LANOLIN/MIN OIL/PETROLAT,WHT 3.5 GM TUBE EACHEYE SCH (21:45)
[2018-11-28 22:47] VITALS: BP 116/72
[2018-11-29] MEDS: IPRATROPIUM NEB FS 0.5 MG/2.5 ML AMPUL.NEB NEB SCH ×4 (02:26→19:18)
[2018-11-29] MEDS: BACLOFEN (10 MG) 10 MG TABLET GT SCH ×2 (05:46→17:25)
[2018-11-29] MEDS: OMEPRAZOLE 20 MG CAPSULE.DR GT SCH (05:46)
[2018-11-29 07:54] VITALS: BP 85/56
[2018-11-29] MEDS: FUROSEMIDE 40 MG TABLET GT SCH (09:00)
[2018-11-29] MEDS: FERROUS SULFATE - FOR SA ONLY 330 MG/7.5 ML UDC GT SCH ×2 (09:17→17:25)
[2018-11-29] MEDS: CARVEDILOL 3.125 MG TABLET GT SCH ×2 (09:17→20:38)
[2018-11-29] MEDS: SIMETHICONE SUSP 40 MG/0.6 ML BOTTLE GT SCH ×2 (09:18→20:39)
[2018-11-29] MEDS: POLYVINYL ALCOHOL 15 ML BOTTLE OP SCH ×4 (09:18→20:40)
[2018-11-29] MEDS: ACIDOPHILUS/BULGARICUS 1 EACH TAB.CHEW GT SCH ×2 (09:18→17:25)
[2018-11-29] MEDS: MIDODRINE HCL (5MG) 5 MG TABLET GT SCH ×2 (09:18→20:39)
[2018-11-29] MEDS: ZINC OXIDE 30 GM TUBE TP SCH ×8 (09:19→20:40)
[2018-11-29] MEDS: Z GUARD REMEDY 4 OZ OINT TP SCH ×2 (09:19→20:40)
[2018-11-29] MEDS: HYDROGEN PEROXIDE 480 ML BOTTLE TP SCH ×2 (16:16→21:41)
[2018-11-29 17:27] VITALS: BP 119/90
[2018-11-29 20:04] VITALS: BP 121/77
[2018-11-29] MEDS: MULTIVIT W/MINERALS 1 TAB TABLET GT SCH (20:40)
[2018-11-29] MEDS: LANOLIN/MIN OIL/PETROLAT,WHT 3.5 GM TUBE EACHEYE SCH (21:20)
[2018-11-29] MEDS: TWOCAL HN 1,000 ML LIQUID GT PRN (21:51)
[2018-11-29 22:32] VITALS: BP 131/76
[2018-11-30] MEDS: IPRATROPIUM NEB FS 0.5 MG/2.5 ML AMPUL.NEB NEB SCH ×4 (02:27→20:01)
[2018-11-30] MEDS: OMEPRAZOLE 20 MG CAPSULE.DR GT SCH (05:58)
[2018-11-30] MEDS: BACLOFEN (10 MG) 10 MG TABLET GT SCH ×2 (05:58→17:54)
[2018-11-30 07:56] VITALS: BP 106/63
[2018-11-30] MEDS: Z GUARD REMEDY 4 OZ OINT TP SCH ×2 (09:00→21:27)
[2018-11-30] MEDS: FERROUS SULFATE - FOR SA ONLY 330 MG/7.5 ML UDC GT SCH ×2 (09:00→17:54)
[2018-11-30] MEDS: POLYVINYL ALCOHOL 15 ML BOTTLE OP SCH ×4 (09:00→21:27)
[2018-11-30] MEDS: ZINC OXIDE 30 GM TUBE TP SCH ×8 (09:00→21:27)
[2018-11-30] MEDS: MIDODRINE HCL (5MG) 5 MG TABLET GT SCH ×2 (09:00→21:27)
[2018-11-30] MEDS: CARVEDILOL 3.125 MG TABLET GT SCH ×2 (09:00→21:27)
[2018-11-30] MEDS: FUROSEMIDE 40 MG TABLET GT SCH (09:00)
[2018-11-30] MEDS: SIMETHICONE SUSP 40 MG/0.6 ML BOTTLE GT SCH ×2 (09:00→21:27)
[2018-11-30] MEDS: ACIDOPHILUS/BULGARICUS 1 EACH TAB.CHEW GT SCH ×2 (09:00→17:54)
[2018-11-30] MEDS: HYDROGEN PEROXIDE 480 ML BOTTLE TP SCH ×2 (09:00→21:25)
[2018-11-30 10:00] VITALS: BP 148/82
[2018-11-30 20:11] VITALS: BP 99/61
[2018-11-30] MEDS: MULTIVIT W/MINERALS 1 TAB TABLET GT SCH (21:27)
[2018-11-30] MEDS: LANOLIN/MIN OIL/PETROLAT,WHT 3.5 GM TUBE EACHEYE SCH (21:27)
[2018-11-30 22:45] VITALS: BP 110/65
[2018-11-30] MEDS: TWOCAL HN 1,000 ML LIQUID GT PRN (23:49)
[2018-12-01] MEDS: IPRATROPIUM NEB FS 0.5 MG/2.5 ML AMPUL.NEB NEB SCH ×4 (01:35→19:09)
[2018-12-01] MEDS: BACLOFEN (10 MG) 10 MG TABLET GT SCH ×2 (05:48→18:42)
[2018-12-01] MEDS: OMEPRAZOLE 20 MG CAPSULE.DR GT SCH (05:48)
[2018-12-01 07:22] VITALS: BP 129/82
[2018-12-01] MEDS: HYDROGEN PEROXIDE 480 ML BOTTLE TP SCH ×2 (08:05→20:07)
[2018-12-01 09:00] VITALS: BP 112/82
[2018-12-01] MEDS: SIMETHICONE SUSP 40 MG/0.6 ML BOTTLE GT SCH ×2 (09:36→21:26)
[2018-12-01] MEDS: ACIDOPHILUS/BULGARICUS 1 EACH TAB.CHEW GT SCH ×2 (09:36→17:00)
[2018-12-01] MEDS: FERROUS SULFATE - FOR SA ONLY 330 MG/7.5 ML UDC GT SCH ×2 (09:36→17:00)
[2018-12-01] MEDS: CARVEDILOL 3.125 MG TABLET GT SCH ×2 (09:36→21:25)
[2018-12-01] MEDS: FUROSEMIDE 40 MG TABLET GT SCH (09:36)
[2018-12-01] MEDS: Z GUARD REMEDY 4 OZ OINT TP SCH ×2 (09:37→21:26)
[2018-12-01] MEDS: MIDODRINE HCL (5MG) 5 MG TABLET GT SCH ×2 (09:37→21:00)
[2018-12-01] MEDS: POLYVINYL ALCOHOL 15 ML BOTTLE OP SCH ×4 (09:37→21:26)
[2018-12-01] MEDS: ZINC OXIDE 30 GM TUBE TP SCH ×8 (09:37→21:27)
[2018-12-01 10:00] VITALS: BP 112/82
[2018-12-01 19:59] VITALS: BP 126/81
[2018-12-01] MEDS: MULTIVIT W/MINERALS 1 TAB TABLET GT SCH (21:26)
[2018-12-01] MEDS: LANOLIN/MIN OIL/PETROLAT,WHT 3.5 GM TUBE EACHEYE SCH (21:27)
[2018-12-01 22:30] VITALS: BP 126/81
[2018-12-02] MEDS: IPRATROPIUM NEB FS 0.5 MG/2.5 ML AMPUL.NEB NEB SCH ×4 (00:37→19:59)
[2018-12-02] MEDS: OMEPRAZOLE 20 MG CAPSULE.DR GT SCH (05:52)
[2018-12-02] MEDS: BACLOFEN (10 MG) 10 MG TABLET GT SCH ×2 (05:52→17:50)
[2018-12-02] MEDS: TWOCAL HN 1,000 ML LIQUID GT PRN (06:16)
[2018-12-02 08:09] VITALS: BP 124/78
[2018-12-02] MEDS: MIDODRINE HCL (5MG) 5 MG TABLET GT SCH ×2 (09:00→21:45)
[2018-12-02] MEDS: FUROSEMIDE 40 MG TABLET GT SCH (09:00)
[2018-12-02] MEDS: HYDROGEN PEROXIDE 480 ML BOTTLE TP SCH ×2 (09:00→21:45)
[2018-12-02] MEDS: CARVEDILOL 3.125 MG TABLET GT SCH ×2 (09:00→21:45)
[2018-12-02] MEDS: Z GUARD REMEDY 4 OZ OINT TP SCH ×2 (09:00→21:46)
[2018-12-02] MEDS: ACIDOPHILUS/BULGARICUS 1 EACH TAB.CHEW GT SCH ×2 (09:00→17:50)
[2018-12-02] MEDS: ZINC OXIDE 30 GM TUBE TP SCH ×8 (09:00→21:46)
[2018-12-02] MEDS: FERROUS SULFATE - FOR SA ONLY 330 MG/7.5 ML UDC GT SCH ×2 (09:00→17:50)
[2018-12-02] MEDS: POLYVINYL ALCOHOL 15 ML BOTTLE OP SCH ×4 (09:00→21:45)
[2018-12-02] MEDS: SIMETHICONE SUSP 40 MG/0.6 ML BOTTLE GT SCH ×2 (09:00→21:45)
[2018-12-02 13:44] VITALS: BP 136/76
[2018-12-02 20:12] VITALS: BP 117/76
[2018-12-02] MEDS: BACI/NEOM/POLY B OINT PKT 1 UDPKT PACKET TP SCH (21:45)
[2018-12-02] MEDS: MULTIVIT W/MINERALS 1 TAB TABLET GT SCH (21:45)
[2018-12-02] MEDS: LANOLIN/MIN OIL/PETROLAT,WHT 3.5 GM TUBE EACHEYE SCH (21:46)
[2018-12-02 22:52] VITALS: BP 117/76
[2018-12-03] MEDS: IPRATROPIUM NEB FS 0.5 MG/2.5 ML AMPUL.NEB NEB SCH ×4 (01:43→19:35)
[2018-12-03] MEDS: OMEPRAZOLE 20 MG CAPSULE.DR GT SCH (06:01)
[2018-12-03] MEDS: BACLOFEN (10 MG) 10 MG TABLET GT SCH ×2 (06:01→17:12)
[2018-12-03 07:35] VITALS: BP 153/84
[2018-12-03] MEDS: ZINC OXIDE 30 GM TUBE TP SCH ×8 (09:00→21:21)
[2018-12-03] MEDS: FUROSEMIDE 40 MG TABLET GT SCH (09:00)
[2018-12-03] MEDS: BACI/NEOM/POLY B OINT PKT 1 UDPKT PACKET TP SCH ×2 (09:00→21:21)
[2018-12-03] MEDS: CARVEDILOL 3.125 MG TABLET GT SCH ×2 (09:00→21:18)
[2018-12-03] MEDS: MIDODRINE HCL (5MG) 5 MG TABLET GT SCH ×2 (09:00→21:00)
[2018-12-03] MEDS: POLYVINYL ALCOHOL 15 ML BOTTLE OP SCH ×4 (09:00→21:20)
[2018-12-03] MEDS: SIMETHICONE SUSP 40 MG/0.6 ML BOTTLE GT SCH ×2 (09:00→21:18)
[2018-12-03] MEDS: FERROUS SULFATE - FOR SA ONLY 330 MG/7.5 ML UDC GT SCH ×2 (09:00→16:52)
[2018-12-03] MEDS: Z GUARD REMEDY 4 OZ OINT TP SCH ×2 (09:00→21:21)
[2018-12-03] MEDS: ACIDOPHILUS/BULGARICUS 1 EACH TAB.CHEW GT SCH ×2 (09:00→16:52)
[2018-12-03] MEDS: HYDROGEN PEROXIDE 480 ML BOTTLE TP SCH ×2 (09:05→21:20)
[2018-12-03 10:00] VITALS: BP 124/87
[2018-12-03] MEDS: TWOCAL HN 1,000 ML LIQUID GT PRN (12:15)
[2018-12-03 20:30] VITALS: BP 120/74
[2018-12-03] MEDS: MULTIVIT W/MINERALS 1 TAB TABLET GT SCH (21:20)
[2018-12-03] MEDS: LANOLIN/MIN OIL/PETROLAT,WHT 3.5 GM TUBE EACHEYE SCH (21:21)
[2018-12-03 22:00] VITALS: BP 120/74
[2018-12-04] MEDS: IPRATROPIUM NEB FS 0.5 MG/2.5 ML AMPUL.NEB NEB SCH ×4 (01:19→19:32)
[2018-12-04] MEDS: OMEPRAZOLE 20 MG CAPSULE.DR GT SCH (05:41)
[2018-12-04] MEDS: BACLOFEN (10 MG) 10 MG TABLET GT SCH ×2 (05:41→17:31)
[2018-12-04 07:48] VITALS: BP 99/66
[2018-12-04] MEDS: ACIDOPHILUS/BULGARICUS 1 EACH TAB.CHEW GT SCH ×2 (09:00→17:31)
[2018-12-04] MEDS: MIDODRINE HCL (5MG) 5 MG TABLET GT SCH ×2 (09:00→21:01)
[2018-12-04] MEDS: ZINC OXIDE 30 GM TUBE TP SCH ×8 (09:00→20:58)
[2018-12-04] MEDS: FERROUS SULFATE - FOR SA ONLY 330 MG/7.5 ML UDC GT SCH ×2 (09:00→17:30)
[2018-12-04] MEDS: Z GUARD REMEDY 4 OZ OINT TP SCH ×2 (09:00→20:57)
[2018-12-04] MEDS: BACI/NEOM/POLY B OINT PKT 1 UDPKT PACKET TP SCH ×2 (09:00→20:57)
[2018-12-04] MEDS: POLYVINYL ALCOHOL 15 ML BOTTLE OP SCH ×4 (09:00→20:57)
[2018-12-04] MEDS: FUROSEMIDE 40 MG TABLET GT SCH (09:00)
[2018-12-04] MEDS: SIMETHICONE SUSP 40 MG/0.6 ML BOTTLE GT SCH ×2 (09:00→21:02)
[2018-12-04] MEDS: HYDROGEN PEROXIDE 480 ML BOTTLE TP SCH ×2 (09:00→20:57)
[2018-12-04] MEDS: CARVEDILOL 3.125 MG TABLET GT SCH ×2 (09:00→21:01)
[2018-12-04 15:40] VITALS: BP 99/66
[2018-12-04] MEDS: TWOCAL HN 1,000 ML LIQUID GT PRN (17:31)
[2018-12-04 21:01] VITALS: BP 112/77
[2018-12-04] MEDS: LANOLIN/MIN OIL/PETROLAT,WHT 3.5 GM TUBE EACHEYE SCH (21:02)
[2018-12-04] MEDS: MULTIVIT W/MINERALS 1 TAB TABLET GT SCH (21:02)
[2018-12-04 23:19] VITALS: BP 112/77
[2018-12-05] MEDS: IPRATROPIUM NEB FS 0.5 MG/2.5 ML AMPUL.NEB NEB SCH ×4 (00:51→19:11)
[2018-12-05] MEDS: OMEPRAZOLE 20 MG CAPSULE.DR GT SCH (05:48)
[2018-12-05] MEDS: BACLOFEN (10 MG) 10 MG TABLET GT SCH ×2 (05:48→17:36)
[2018-12-05 07:17] VITALS: BP 109/72
[2018-12-05] MEDS: ZINC OXIDE 30 GM TUBE TP SCH ×6 (09:00→21:24)
[2018-12-05] MEDS: HYDROGEN PEROXIDE 480 ML BOTTLE TP SCH ×2 (09:00→21:03)
[2018-12-05] MEDS: BACI/NEOM/POLY B OINT PKT 1 UDPKT PACKET TP SCH ×2 (09:00→21:24)
[2018-12-05] MEDS: Z GUARD REMEDY 4 OZ OINT TP SCH ×2 (09:00→21:24)
[2018-12-05] MEDS: CARVEDILOL 3.125 MG TABLET GT SCH ×2 (09:07→21:23)
[2018-12-05] MEDS: POLYVINYL ALCOHOL 15 ML BOTTLE OP SCH ×4 (09:08→21:24)
[2018-12-05] MEDS: MIDODRINE HCL (5MG) 5 MG TABLET GT SCH ×2 (09:08→21:24)
[2018-12-05] MEDS: FERROUS SULFATE - FOR SA ONLY 330 MG/7.5 ML UDC GT SCH ×2 (09:08→17:36)
[2018-12-05] MEDS: FUROSEMIDE 40 MG TABLET GT SCH (09:08)
[2018-12-05] MEDS: ACIDOPHILUS/BULGARICUS 1 EACH TAB.CHEW GT SCH ×2 (09:08→17:36)
[2018-12-05] MEDS: SIMETHICONE SUSP 40 MG/0.6 ML BOTTLE GT SCH ×2 (09:08→21:24)
[2018-12-05 18:40] VITALS: BP 109/72
[2018-12-05 19:54] VITALS: BP 111/74
[2018-12-05] MEDS: MULTIVIT W/MINERALS 1 TAB TABLET GT SCH (21:24)
[2018-12-05] MEDS: LANOLIN/MIN OIL/PETROLAT,WHT 3.5 GM TUBE EACHEYE SCH (21:25)
[2018-12-05 22:13] VITALS: BP 111/74
[2018-12-06] MEDS: IPRATROPIUM NEB FS 0.5 MG/2.5 ML AMPUL.NEB NEB SCH ×4 (01:24→19:54)
[2018-12-06] MEDS: TWOCAL HN 1,000 ML LIQUID GT PRN (03:44)
[2018-12-06] MEDS: BACLOFEN (10 MG) 10 MG TABLET GT SCH ×2 (06:09→17:51)
[2018-12-06] MEDS: OMEPRAZOLE 20 MG CAPSULE.DR GT SCH (06:09)
[2018-12-06 08:00] VITALS: BP 164/69
[2018-12-06 08:04] LABS: ALBUMIN 3.2 g/dL (3.4-5.0); BILIRUBIN,TOTAL 0.3 mg/dL (0.2-1.0); CALCIUM, SERUM 9.9 mg/dL (8.5-10.1); CREATININE 0.7 mg/dL (0.6-1.3); PHOSPHORUS 3.4 mg/dL (2.5-4.9); POTASSIUM 3.8 mmol/L (3.5-5.1)
[2018-12-06 08:05] LABS: BASOPHILS % (AUTO) 0.4 % (0.0-2.0); EOSINOPHILS % (AUTO) 5.5 % (0.0-6.0); HEMATOCRIT 31 % (33-45); HEMOGLOBIN 9.5 g/dL (11.5-14.8); LYMPHOCYTES # (AUTO) 2.5 /CMM (0.8-4.8); LYMPHOCYTES % (AUTO) 35.6 % (20.0-44.0); MEAN CORPUSCULAR HGB CONC 31 g/dl (31.0-36.0); MEAN CORPUSCULAR VOLUME 81 fL (82-100); MONOCYTES # (AUTO) 0.6 /CMM (0.1-1.30); MONOCYTES % (AUTO) 9.1 % (2.0-12.0); NEUTROPHILS # (AUTO) 3.4 /CMM (1.8-8.9); NEUTROPHILS % (AUTO) 49.4 % (43.0-81.0); PLATELET COUNT (AUTO) 204 /CMM (150-450); RED BLOOD CELL COUNT(AUTO) 3.78 MIL/uL (4.0-5.2); WHITE BLOOD COUNT (AUTO) 6.9 K/uL (4.3-11.0)
[2018-12-06] MEDS: MIDODRINE HCL (5MG) 5 MG TABLET GT SCH ×2 (09:00→21:00)
[2018-12-06] MEDS: ZINC OXIDE 30 GM TUBE TP SCH ×6 (09:13→21:31)
[2018-12-06] MEDS: POLYVINYL ALCOHOL 15 ML BOTTLE OP SCH ×4 (09:13→21:31)
[2018-12-06] MEDS: Z GUARD REMEDY 4 OZ OINT TP SCH ×2 (09:13→21:31)
[2018-12-06] MEDS: BACI/NEOM/POLY B OINT PKT 1 UDPKT PACKET TP SCH ×2 (09:14→21:31)
[2018-12-06] MEDS: HYDROGEN PEROXIDE 480 ML BOTTLE TP SCH ×2 (09:14→10:06)
[2018-12-06] MEDS: ACIDOPHILUS/BULGARICUS 1 EACH TAB.CHEW GT SCH ×2 (09:17→17:50)
[2018-12-06] MEDS: FERROUS SULFATE - FOR SA ONLY 330 MG/7.5 ML UDC GT SCH ×2 (09:17→17:50)
[2018-12-06] MEDS: CARVEDILOL 3.125 MG TABLET GT SCH ×2 (09:18→21:30)
[2018-12-06] MEDS: FUROSEMIDE 40 MG TABLET GT SCH (09:18)
[2018-12-06] MEDS: SIMETHICONE SUSP 40 MG/0.6 ML BOTTLE GT SCH ×2 (09:22→21:30)
[2018-12-06 10:00] VITALS: BP 164/69
[2018-12-06 20:34] VITALS: BP 125/73
[2018-12-06] MEDS: MULTIVIT W/MINERALS 1 TAB TABLET GT SCH (21:31)
[2018-12-06] MEDS: LANOLIN/MIN OIL/PETROLAT,WHT 3.5 GM TUBE EACHEYE SCH (21:31)
[2018-12-06 22:17] VITALS: BP 125/73
[2018-12-07] MEDS: IPRATROPIUM NEB FS 0.5 MG/2.5 ML AMPUL.NEB NEB SCH ×4 (01:20→19:30)
[2018-12-07] MEDS: BACLOFEN (10 MG) 10 MG TABLET GT SCH ×2 (06:17→17:36)
[2018-12-07] MEDS: OMEPRAZOLE 20 MG CAPSULE.DR GT SCH (06:17)
[2018-12-07 08:00] VITALS: BP 155/117
[2018-12-07] MEDS: Z GUARD REMEDY 4 OZ OINT TP SCH ×2 (09:00→21:51)
[2018-12-07] MEDS: FERROUS SULFATE - FOR SA ONLY 330 MG/7.5 ML UDC GT SCH ×2 (09:00→17:36)
[2018-12-07] MEDS: SIMETHICONE SUSP 40 MG/0.6 ML BOTTLE GT SCH ×2 (09:00→21:50)
[2018-12-07] MEDS: BACI/NEOM/POLY B OINT PKT 1 UDPKT PACKET TP SCH ×2 (09:00→21:51)
[2018-12-07] MEDS: POLYVINYL ALCOHOL 15 ML BOTTLE OP SCH ×4 (09:00→21:51)
[2018-12-07] MEDS: MIDODRINE HCL (5MG) 5 MG TABLET GT SCH ×2 (09:00→21:51)
[2018-12-07] MEDS: FUROSEMIDE 40 MG TABLET GT SCH (09:00)
[2018-12-07] MEDS: ACIDOPHILUS/BULGARICUS 1 EACH TAB.CHEW GT SCH ×2 (09:00→17:36)
[2018-12-07] MEDS: HYDROGEN PEROXIDE 480 ML BOTTLE TP SCH ×2 (09:32→21:51)
[2018-12-07] MEDS: CARVEDILOL 3.125 MG TABLET GT SCH ×2 (10:14→21:50)
[2018-12-07] MEDS: TWOCAL HN 1,000 ML LIQUID GT PRN (10:16)
[2018-12-07 15:04] VITALS: BP 131/72
[2018-12-07 20:16] VITALS: BP 113/73
[2018-12-07] MEDS: MULTIVIT W/MINERALS 1 TAB TABLET GT SCH (21:51)
[2018-12-07] MEDS: LANOLIN/MIN OIL/PETROLAT,WHT 3.5 GM TUBE EACHEYE SCH (21:51)
[2018-12-07 22:00] VITALS: BP 113/73
[2018-12-08] MEDS: IPRATROPIUM NEB FS 0.5 MG/2.5 ML AMPUL.NEB NEB SCH ×4 (01:48→19:39)
[2018-12-08] MEDS: OMEPRAZOLE 20 MG CAPSULE.DR GT SCH (05:41)
[2018-12-08] MEDS: BACLOFEN (10 MG) 10 MG TABLET GT SCH ×2 (05:41→18:12)
[2018-12-08 07:57] VITALS: BP 107/68
[2018-12-08] MEDS: FUROSEMIDE 40 MG TABLET GT SCH (09:00)
[2018-12-08] MEDS: Z GUARD REMEDY 4 OZ OINT TP SCH ×2 (09:00→21:33)
[2018-12-08] MEDS: BACI/NEOM/POLY B OINT PKT 1 UDPKT PACKET TP SCH ×2 (09:00→21:33)
[2018-12-08] MEDS: MIDODRINE HCL (5MG) 5 MG TABLET GT SCH ×2 (09:00→21:33)
[2018-12-08] MEDS: CARVEDILOL 3.125 MG TABLET GT SCH ×2 (09:00→21:00)
[2018-12-08] MEDS: ACIDOPHILUS/BULGARICUS 1 EACH TAB.CHEW GT SCH ×2 (09:00→17:00)
[2018-12-08] MEDS: FERROUS SULFATE - FOR SA ONLY 330 MG/7.5 ML UDC GT SCH ×2 (09:00→17:00)
[2018-12-08] MEDS: SIMETHICONE SUSP 40 MG/0.6 ML BOTTLE GT SCH ×2 (09:00→21:32)
[2018-12-08] MEDS: POLYVINYL ALCOHOL 15 ML BOTTLE OP SCH ×4 (09:00→21:33)
[2018-12-08] MEDS: HYDROGEN PEROXIDE 480 ML BOTTLE TP SCH ×2 (11:50→21:33)
[2018-12-08 12:20] VITALS: BP 107/68
[2018-12-08] MEDS: TWOCAL HN 1,000 ML LIQUID GT PRN (12:22)
[2018-12-08 20:45] VITALS: BP 84/49
[2018-12-08] MEDS: MULTIVIT W/MINERALS 1 TAB TABLET GT SCH (21:33)
[2018-12-08] MEDS: LANOLIN/MIN OIL/PETROLAT,WHT 3.5 GM TUBE EACHEYE SCH (21:33)
[2018-12-08 22:30] VITALS: BP 98/52
[2018-12-09] MEDS: IPRATROPIUM NEB FS 0.5 MG/2.5 ML AMPUL.NEB NEB SCH ×4 (01:46→19:51)
[2018-12-09] MEDS: LORAZEPAM INJ 2 MG/ML VIAL IVP PRN (02:16)
[2018-12-09] MEDS: OMEPRAZOLE 20 MG CAPSULE.DR GT SCH (05:26)
[2018-12-09] MEDS: BACLOFEN (10 MG) 10 MG TABLET GT SCH ×2 (05:26→17:59)
[2018-12-09 07:57] VITALS: BP 134/77
[2018-12-09] MEDS: HYDROGEN PEROXIDE 480 ML BOTTLE TP SCH ×2 (09:00→21:13)
[2018-12-09] MEDS: MIDODRINE HCL (5MG) 5 MG TABLET GT SCH ×2 (09:00→21:12)
[2018-12-09] MEDS: NYSTATIN TOP POWDER 15 GM BOTTLE TP SCH ×6 (09:48→21:13)
[2018-12-09] MEDS: FUROSEMIDE 40 MG TABLET GT SCH (09:51)
[2018-12-09] MEDS: SIMETHICONE SUSP 40 MG/0.6 ML BOTTLE GT SCH ×2 (09:51→21:12)
[2018-12-09] MEDS: ACIDOPHILUS/BULGARICUS 1 EACH TAB.CHEW GT SCH ×2 (09:51→17:59)
[2018-12-09] MEDS: POLYVINYL ALCOHOL 15 ML BOTTLE OP SCH ×4 (09:51→21:13)
[2018-12-09] MEDS: FERROUS SULFATE - FOR SA ONLY 330 MG/7.5 ML UDC GT SCH ×2 (09:51→17:59)
[2018-12-09] MEDS: CARVEDILOL 3.125 MG TABLET GT SCH ×2 (09:51→21:12)
[2018-12-09] MEDS: Z GUARD REMEDY 4 OZ OINT TP SCH ×2 (09:52→21:13)
[2018-12-09] MEDS: BACI/NEOM/POLY B OINT PKT 1 UDPKT PACKET TP SCH ×2 (09:52→21:13)
[2018-12-09 13:56] VITALS: BP 122/80
[2018-12-09] MEDS: TWOCAL HN 1,000 ML LIQUID GT PRN (18:03)
[2018-12-09] MEDS: MULTIVIT W/MINERALS 1 TAB TABLET GT SCH (21:12)
[2018-12-09] MEDS: LANOLIN/MIN OIL/PETROLAT,WHT 3.5 GM TUBE EACHEYE SCH (21:13)
[2018-12-09 21:27] VITALS: BP 112/60
[2018-12-09 22:30] VITALS: BP 115/60
[2018-12-10] MEDS: IPRATROPIUM NEB FS 0.5 MG/2.5 ML AMPUL.NEB NEB SCH ×4 (01:31→19:55)
[2018-12-10] MEDS: OMEPRAZOLE 20 MG CAPSULE.DR GT SCH (05:40)
[2018-12-10] MEDS: BACLOFEN (10 MG) 10 MG TABLET GT SCH ×2 (05:40→17:04)
[2018-12-10 07:38] VITALS: BP 93/39
[2018-12-10] MEDS: POLYVINYL ALCOHOL 15 ML BOTTLE OP SCH ×4 (08:59→21:37)
[2018-12-10] MEDS: ACIDOPHILUS/BULGARICUS 1 EACH TAB.CHEW GT SCH ×2 (08:59→17:03)
[2018-12-10] MEDS: CARVEDILOL 3.125 MG TABLET GT SCH ×2 (08:59→21:34)
[2018-12-10] MEDS: FUROSEMIDE 40 MG TABLET GT SCH (08:59)
[2018-12-10] MEDS: SIMETHICONE SUSP 40 MG/0.6 ML BOTTLE GT SCH ×2 (08:59→21:36)
[2018-12-10] MEDS: FERROUS SULFATE - FOR SA ONLY 330 MG/7.5 ML UDC GT SCH ×2 (08:59→17:03)
[2018-12-10] MEDS: MIDODRINE HCL (5MG) 5 MG TABLET GT SCH ×2 (08:59→21:37)
[2018-12-10] MEDS: HYDROGEN PEROXIDE 480 ML BOTTLE TP SCH ×2 (09:00→21:37)
[2018-12-10] MEDS: BACI/NEOM/POLY B OINT PKT 1 UDPKT PACKET TP SCH ×2 (09:00→21:37)
[2018-12-10] MEDS: Z GUARD REMEDY 4 OZ OINT TP SCH ×2 (09:00→21:37)
[2018-12-10] MEDS: NYSTATIN TOP POWDER 15 GM BOTTLE TP SCH ×6 (09:00→21:37)
[2018-12-10 10:00] VITALS: BP 100/60
[2018-12-10 20:40] VITALS: BP 125/79
[2018-12-10] MEDS: LANOLIN/MIN OIL/PETROLAT,WHT 3.5 GM TUBE EACHEYE SCH (21:38)
[2018-12-10] MEDS: MULTIVIT W/MINERALS 1 TAB TABLET GT SCH (21:41)
[2018-12-10 22:00] VITALS: BP 125/79
[2018-12-11] MEDS: IPRATROPIUM NEB FS 0.5 MG/2.5 ML AMPUL.NEB NEB SCH ×4 (01:57→20:10)
[2018-12-11] MEDS: LORAZEPAM 0.5 MG TABLET GT PRN (02:23)
[2018-12-11] MEDS: TWOCAL HN 1,000 ML LIQUID GT PRN (03:28)
[2018-12-11] MEDS: BACLOFEN (10 MG) 10 MG TABLET GT SCH ×2 (06:00→18:45)
[2018-12-11] MEDS: OMEPRAZOLE 20 MG CAPSULE.DR GT SCH (06:00)
[2018-12-11 07:32] VITALS: BP 101/62
[2018-12-11] MEDS: Z GUARD REMEDY 4 OZ OINT TP SCH ×2 (09:00→21:19)
[2018-12-11] MEDS: CARVEDILOL 3.125 MG TABLET GT SCH ×2 (09:00→21:18)
[2018-12-11] MEDS: POLYVINYL ALCOHOL 15 ML BOTTLE OP SCH ×4 (09:00→21:18)
[2018-12-11] MEDS: MIDODRINE HCL (5MG) 5 MG TABLET GT SCH ×2 (09:00→21:18)
[2018-12-11] MEDS: FERROUS SULFATE - FOR SA ONLY 330 MG/7.5 ML UDC GT SCH ×2 (09:00→17:00)
[2018-12-11] MEDS: BACI/NEOM/POLY B OINT PKT 1 UDPKT PACKET TP SCH ×2 (09:00→21:19)
[2018-12-11] MEDS: FUROSEMIDE 40 MG TABLET GT SCH (09:00)
[2018-12-11] MEDS: SIMETHICONE SUSP 40 MG/0.6 ML BOTTLE GT SCH ×2 (09:00→21:18)
[2018-12-11] MEDS: ACIDOPHILUS/BULGARICUS 1 EACH TAB.CHEW GT SCH ×2 (09:00→17:00)
[2018-12-11] MEDS: NYSTATIN TOP POWDER 15 GM BOTTLE TP SCH ×6 (09:00→21:18)
[2018-12-11] MEDS: HYDROGEN PEROXIDE 480 ML BOTTLE TP SCH ×2 (09:10→21:13)
[2018-12-11 18:54] VITALS: BP 122/64
[2018-12-11 20:20] VITALS: BP 113/59
[2018-12-11] MEDS: MULTIVIT W/MINERALS 1 TAB TABLET GT SCH (21:18)
[2018-12-11] MEDS: LANOLIN/MIN OIL/PETROLAT,WHT 3.5 GM TUBE EACHEYE SCH (21:19)
[2018-12-11 22:28] VITALS: BP 113/59
[2018-12-12] MEDS: IPRATROPIUM NEB FS 0.5 MG/2.5 ML AMPUL.NEB NEB SCH ×4 (01:33→19:34)
[2018-12-12] MEDS: OMEPRAZOLE 20 MG CAPSULE.DR GT SCH (05:51)
[2018-12-12] MEDS: BACLOFEN (10 MG) 10 MG TABLET GT SCH ×2 (05:51→17:23)
[2018-12-12 08:00] VITALS: BP 90/42
[2018-12-12] MEDS: CARVEDILOL 3.125 MG TABLET GT SCH ×2 (09:00→20:34)
[2018-12-12] MEDS: BACI/NEOM/POLY B OINT PKT 1 UDPKT PACKET TP SCH ×2 (09:00→20:35)
[2018-12-12] MEDS: NYSTATIN TOP POWDER 15 GM BOTTLE TP SCH ×6 (09:00→20:35)
[2018-12-12] MEDS: FUROSEMIDE 40 MG TABLET GT SCH (09:00)
[2018-12-12] MEDS: MIDODRINE HCL (5MG) 5 MG TABLET GT SCH ×2 (09:00→20:35)
[2018-12-12] MEDS: FERROUS SULFATE - FOR SA ONLY 330 MG/7.5 ML UDC GT SCH ×2 (09:00→16:52)
[2018-12-12] MEDS: Z GUARD REMEDY 4 OZ OINT TP SCH ×2 (09:00→20:35)
[2018-12-12] MEDS: ACIDOPHILUS/BULGARICUS 1 EACH TAB.CHEW GT SCH ×2 (09:00→16:52)
[2018-12-12] MEDS: SIMETHICONE SUSP 40 MG/0.6 ML BOTTLE GT SCH ×2 (09:00→20:34)
[2018-12-12] MEDS: POLYVINYL ALCOHOL 15 ML BOTTLE OP SCH ×4 (09:00→20:35)
[2018-12-12] MEDS: HYDROGEN PEROXIDE 480 ML BOTTLE TP SCH ×2 (09:28→20:35)
[2018-12-12 12:25] VITALS: BP 101/51
[2018-12-12] MEDS: TWOCAL HN 1,000 ML LIQUID GT PRN (12:57)
[2018-12-12 19:48] VITALS: BP 119/79
[2018-12-12] MEDS: MULTIVIT W/MINERALS 1 TAB TABLET GT SCH (20:35)
[2018-12-12] MEDS: LANOLIN/MIN OIL/PETROLAT,WHT 3.5 GM TUBE EACHEYE SCH (21:10)
[2018-12-13 01:48] VITALS: BP 123/82
[2018-12-13] MEDS: IPRATROPIUM NEB FS 0.5 MG/2.5 ML AMPUL.NEB NEB SCH ×4 (02:12→20:13)
[2018-12-13] MEDS: BACLOFEN (10 MG) 10 MG TABLET GT SCH ×2 (05:42→17:55)
[2018-12-13] MEDS: OMEPRAZOLE 20 MG CAPSULE.DR GT SCH (05:43)
[2018-12-13 07:23] LABS: BASOPHILS % (AUTO) 0.4 % (0.0-2.0); HEMATOCRIT 28 % (33-45); HEMOGLOBIN 8.8 g/dL (11.5-14.8); LYMPHOCYTES # (AUTO) 3.5 /CMM (0.8-4.8); LYMPHOCYTES % (AUTO) 47.8 % (20.0-44.0); MEAN CORPUSCULAR HGB CONC 32 g/dl (31.0-36.0); MEAN CORPUSCULAR VOLUME 82 fL (82-100); MONOCYTES # (AUTO) 0.8 /CMM (0.1-1.30); MONOCYTES % (AUTO) 10.9 % (2.0-12.0); NEUTROPHILS # (AUTO) 2.7 /CMM (1.8-8.9); NEUTROPHILS % (AUTO) 35.9 % (43.0-81.0); PLATELET COUNT (AUTO) 177 /CMM (150-450); RED BLOOD CELL COUNT(AUTO) 3.39 MIL/uL (4.0-5.2); WHITE BLOOD COUNT (AUTO) 7.4 K/uL (4.3-11.0)
[2018-12-13 07:29] LABS: CALCIUM, SERUM 9.7 mg/dL (8.5-10.1); CREATININE 0.6 mg/dL (0.6-1.3); PHOSPHORUS 3.2 mg/dL (2.5-4.9); POTASSIUM 3.7 mmol/L (3.5-5.1)
[2018-12-13 07:31] LABS: ALBUMIN 3.1 g/dL (3.4-5.0); BILIRUBIN,DIRECT 0.1 mg/dL (0.0-0.2); BILIRUBIN,TOTAL 0.2 mg/dL (0.2-1.0); TOTAL PROTEIN, SERUM 8.8 g/dL (6.4-8.2)
[2018-12-13 08:03] VITALS: BP 100/40
[2018-12-13] MEDS: POLYVINYL ALCOHOL 15 ML BOTTLE OP SCH ×4 (09:00→21:12)
[2018-12-13] MEDS: HYDROGEN PEROXIDE 480 ML BOTTLE TP SCH ×2 (09:00→21:12)
[2018-12-13] MEDS: MIDODRINE HCL (5MG) 5 MG TABLET GT SCH ×2 (09:00→21:12)
[2018-12-13] MEDS: BACI/NEOM/POLY B OINT PKT 1 UDPKT PACKET TP SCH ×2 (09:00→21:13)
[2018-12-13] MEDS: NYSTATIN TOP POWDER 15 GM BOTTLE TP SCH ×6 (09:00→21:13)
[2018-12-13] MEDS: SIMETHICONE SUSP 40 MG/0.6 ML BOTTLE GT SCH ×2 (09:00→21:12)
[2018-12-13] MEDS: ACIDOPHILUS/BULGARICUS 1 EACH TAB.CHEW GT SCH ×2 (09:00→17:55)
[2018-12-13] MEDS: FERROUS SULFATE - FOR SA ONLY 330 MG/7.5 ML UDC GT SCH ×2 (09:00→17:55)
[2018-12-13] MEDS: CARVEDILOL 3.125 MG TABLET GT SCH ×2 (09:00→21:12)
[2018-12-13] MEDS: FUROSEMIDE 40 MG TABLET GT SCH (09:00)
[2018-12-13] MEDS: Z GUARD REMEDY 4 OZ OINT TP SCH ×2 (09:00→21:13)
[2018-12-13 17:57] VITALS: BP 112/69
[2018-12-13] MEDS: TWOCAL HN 1,000 ML LIQUID GT PRN (19:04)
[2018-12-13 20:49] VITALS: BP 108/75
[2018-12-13] MEDS: MULTIVIT W/MINERALS 1 TAB TABLET GT SCH (21:12)
[2018-12-13] MEDS: LANOLIN/MIN OIL/PETROLAT,WHT 3.5 GM TUBE EACHEYE SCH (21:13)
[2018-12-13 22:17] VITALS: BP 108/75
[2018-12-14] MEDS: IPRATROPIUM NEB FS 0.5 MG/2.5 ML AMPUL.NEB NEB SCH ×4 (00:48→20:08)
[2018-12-14] MEDS: OMEPRAZOLE 20 MG CAPSULE.DR GT SCH (06:05)
[2018-12-14] MEDS: BACLOFEN (10 MG) 10 MG TABLET GT SCH ×2 (06:05→17:50)
[2018-12-14 07:52] VITALS: BP 105/56
[2018-12-14] MEDS: ACIDOPHILUS/BULGARICUS 1 EACH TAB.CHEW GT SCH ×2 (08:48→17:50)
[2018-12-14] MEDS: FERROUS SULFATE - FOR SA ONLY 330 MG/7.5 ML UDC GT SCH ×2 (08:48→17:50)
[2018-12-14] MEDS: CARVEDILOL 3.125 MG TABLET GT SCH ×2 (08:48→20:23)
[2018-12-14] MEDS: FUROSEMIDE 40 MG TABLET GT SCH (08:48)
[2018-12-14] MEDS: SIMETHICONE SUSP 40 MG/0.6 ML BOTTLE GT SCH ×2 (08:48→20:23)
[2018-12-14] MEDS: POLYVINYL ALCOHOL 15 ML BOTTLE OP SCH ×4 (08:49→20:25)
[2018-12-14] MEDS: MIDODRINE HCL (5MG) 5 MG TABLET GT SCH ×2 (08:49→20:24)
[2018-12-14] MEDS: Z GUARD REMEDY 4 OZ OINT TP SCH ×2 (09:00→20:26)
[2018-12-14] MEDS: BACI/NEOM/POLY B OINT PKT 1 UDPKT PACKET TP SCH ×2 (09:00→20:26)
[2018-12-14] MEDS: NYSTATIN TOP POWDER 15 GM BOTTLE TP SCH ×6 (09:00→20:26)
[2018-12-14 14:52] VITALS: BP 105/56
[2018-12-14 19:58] VITALS: BP 110/67
[2018-12-14] MEDS: LANOLIN/MIN OIL/PETROLAT,WHT 3.5 GM TUBE EACHEYE SCH (20:26)
[2018-12-14] MEDS: MULTIVIT W/MINERALS 1 TAB TABLET GT SCH (20:28)
[2018-12-14] MEDS: HYDROGEN PEROXIDE 480 ML BOTTLE TP SCH (20:40)
[2018-12-14 22:00] VITALS: BP 110/67
[2018-12-15] MEDS: TWOCAL HN 1,000 ML LIQUID GT PRN (00:23)
[2018-12-15] MEDS: IPRATROPIUM NEB FS 0.5 MG/2.5 ML AMPUL.NEB NEB SCH ×4 (01:09→19:45)
[2018-12-15] MEDS: OMEPRAZOLE 20 MG CAPSULE.DR GT SCH (05:09)
[2018-12-15] MEDS: BACLOFEN (10 MG) 10 MG TABLET GT SCH ×2 (05:09→17:19)
[2018-12-15 07:31] VITALS: BP 118/66
[2018-12-15] MEDS: Z GUARD REMEDY 4 OZ OINT TP SCH ×2 (08:33→21:43)
[2018-12-15] MEDS: MIDODRINE HCL (5MG) 5 MG TABLET GT SCH ×2 (08:33→21:42)
[2018-12-15] MEDS: NYSTATIN TOP POWDER 15 GM BOTTLE TP SCH ×6 (08:33→21:43)
[2018-12-15] MEDS: CARVEDILOL 3.125 MG TABLET GT SCH ×2 (08:33→21:42)
[2018-12-15] MEDS: BACI/NEOM/POLY B OINT PKT 1 UDPKT PACKET TP SCH ×2 (08:33→21:43)
[2018-12-15] MEDS: ACIDOPHILUS/BULGARICUS 1 EACH TAB.CHEW GT SCH ×2 (08:33→17:19)
[2018-12-15] MEDS: FERROUS SULFATE - FOR SA ONLY 330 MG/7.5 ML UDC GT SCH ×2 (08:33→17:19)
[2018-12-15] MEDS: FUROSEMIDE 40 MG TABLET GT SCH (08:33)
[2018-12-15] MEDS: SIMETHICONE SUSP 40 MG/0.6 ML BOTTLE GT SCH ×2 (08:33→21:42)
[2018-12-15] MEDS: POLYVINYL ALCOHOL 15 ML BOTTLE OP SCH ×4 (08:33→21:42)
[2018-12-15] MEDS: HYDROGEN PEROXIDE 480 ML BOTTLE TP SCH ×2 (09:40→21:42)
[2018-12-15 10:00] VITALS: BP 117/63
[2018-12-15 19:38] VITALS: BP 107/64
[2018-12-15] MEDS: MULTIVIT W/MINERALS 1 TAB TABLET GT SCH (21:42)
[2018-12-15] MEDS: LANOLIN/MIN OIL/PETROLAT,WHT 3.5 GM TUBE EACHEYE SCH (21:43)
[2018-12-15 22:00] VITALS: BP 108/70
[2018-12-16] MEDS: IPRATROPIUM NEB FS 0.5 MG/2.5 ML AMPUL.NEB NEB SCH ×4 (02:20→19:48)
[2018-12-16] MEDS: OMEPRAZOLE 20 MG CAPSULE.DR GT SCH (05:43)
[2018-12-16] MEDS: TWOCAL HN 1,000 ML LIQUID GT PRN (05:43)
[2018-12-16] MEDS: BACLOFEN (10 MG) 10 MG TABLET GT SCH ×2 (05:43→17:17)
[2018-12-16 07:43] VITALS: BP 117/72
[2018-12-16] MEDS: POLYVINYL ALCOHOL 15 ML BOTTLE OP SCH ×4 (08:05→20:51)
[2018-12-16] MEDS: FUROSEMIDE 40 MG TABLET GT SCH (08:06)
[2018-12-16] MEDS: CARVEDILOL 3.125 MG TABLET GT SCH ×2 (08:07→20:45)
[2018-12-16] MEDS: ACIDOPHILUS/BULGARICUS 1 EACH TAB.CHEW GT SCH ×2 (08:08→17:13)
[2018-12-16] MEDS: FERROUS SULFATE - FOR SA ONLY 330 MG/7.5 ML UDC GT SCH ×2 (08:10→17:13)
[2018-12-16] MEDS: MIDODRINE HCL (5MG) 5 MG TABLET GT SCH ×2 (08:11→20:48)
[2018-12-16] MEDS: SIMETHICONE SUSP 40 MG/0.6 ML BOTTLE GT SCH ×2 (08:11→20:46)
[2018-12-16] MEDS: HYDROGEN PEROXIDE 480 ML BOTTLE TP SCH ×2 (09:00→21:00)
[2018-12-16] MEDS: BACI/NEOM/POLY B OINT PKT 1 UDPKT PACKET TP SCH ×2 (09:00→21:43)
[2018-12-16] MEDS: NYSTATIN TOP POWDER 15 GM BOTTLE TP SCH ×6 (09:00→21:44)
[2018-12-16] MEDS: Z GUARD REMEDY 4 OZ OINT TP SCH ×2 (09:00→21:43)
[2018-12-16 10:00] VITALS: BP 117/72
[2018-12-16 12:00] VITALS: BP 125/70
[2018-12-16 19:50] VITALS: BP 97/61
[2018-12-16] MEDS: MULTIVIT W/MINERALS 1 TAB TABLET GT SCH (20:49)
[2018-12-16] MEDS: LANOLIN/MIN OIL/PETROLAT,WHT 3.5 GM TUBE EACHEYE SCH (21:45)
[2018-12-16 22:00] VITALS: BP 97/61
[2018-12-17] MEDS: IPRATROPIUM NEB FS 0.5 MG/2.5 ML AMPUL.NEB NEB SCH ×4 (02:18→19:39)
[2018-12-17] MEDS: BACLOFEN (10 MG) 10 MG TABLET GT SCH ×2 (05:20→17:40)
[2018-12-17] MEDS: OMEPRAZOLE 20 MG CAPSULE.DR GT SCH (05:21)
[2018-12-17] MEDS: TWOCAL HN 1,000 ML LIQUID GT PRN (06:28)
[2018-12-17 07:55] VITALS: BP 105/52
[2018-12-17] MEDS: SIMETHICONE SUSP 40 MG/0.6 ML BOTTLE GT SCH ×2 (08:58→21:37)
[2018-12-17] MEDS: CARVEDILOL 3.125 MG TABLET GT SCH ×2 (08:58→21:37)
[2018-12-17] MEDS: FUROSEMIDE 40 MG TABLET GT SCH (08:58)
[2018-12-17] MEDS: FERROUS SULFATE - FOR SA ONLY 330 MG/7.5 ML UDC GT SCH ×2 (08:58→17:40)
[2018-12-17] MEDS: MIDODRINE HCL (5MG) 5 MG TABLET GT SCH ×2 (08:58→21:38)
[2018-12-17] MEDS: ACIDOPHILUS/BULGARICUS 1 EACH TAB.CHEW GT SCH ×2 (08:58→17:40)
[2018-12-17] MEDS: POLYVINYL ALCOHOL 15 ML BOTTLE OP SCH ×4 (08:59→21:38)
[2018-12-17] MEDS: NYSTATIN TOP POWDER 15 GM BOTTLE TP SCH ×6 (09:00→21:39)
[2018-12-17] MEDS: HYDROGEN PEROXIDE 480 ML BOTTLE TP SCH ×2 (09:00→21:39)
[2018-12-17] MEDS: Z GUARD REMEDY 4 OZ OINT TP SCH ×2 (11:35→21:39)
[2018-12-17 14:41] VITALS: BP 105/52
[2018-12-17 19:41] VITALS: BP 104/64
[2018-12-17] MEDS: MULTIVIT W/MINERALS 1 TAB TABLET GT SCH (21:38)
[2018-12-17] MEDS: LANOLIN/MIN OIL/PETROLAT,WHT 3.5 GM TUBE EACHEYE SCH (21:39)
[2018-12-17 22:00] VITALS: BP 115/70
[2018-12-18] MEDS: IPRATROPIUM NEB FS 0.5 MG/2.5 ML AMPUL.NEB NEB SCH ×4 (01:50→19:30)
[2018-12-18] MEDS: LORAZEPAM 0.5 MG TABLET GT PRN (03:05)
[2018-12-18] MEDS: OMEPRAZOLE 20 MG CAPSULE.DR GT SCH (06:07)
[2018-12-18] MEDS: BACLOFEN (10 MG) 10 MG TABLET GT SCH ×2 (06:07→18:16)
[2018-12-18 08:04] VITALS: BP 115/69
[2018-12-18] MEDS: Z GUARD REMEDY 4 OZ OINT TP SCH ×2 (09:00→21:00)
[2018-12-18] MEDS: NYSTATIN TOP POWDER 15 GM BOTTLE TP SCH ×6 (09:00→21:00)
[2018-12-18] MEDS: ACIDOPHILUS/BULGARICUS 1 EACH TAB.CHEW GT SCH ×2 (09:00→17:00)
[2018-12-18] MEDS: FERROUS SULFATE - FOR SA ONLY 330 MG/7.5 ML UDC GT SCH ×2 (09:00→17:00)
[2018-12-18] MEDS: HYDROGEN PEROXIDE 480 ML BOTTLE TP SCH ×2 (09:00→21:00)
[2018-12-18] MEDS: POLYVINYL ALCOHOL 15 ML BOTTLE OP SCH ×4 (09:00→21:00)
[2018-12-18] MEDS: SIMETHICONE SUSP 40 MG/0.6 ML BOTTLE GT SCH ×2 (09:00→21:00)
[2018-12-18] MEDS: MIDODRINE HCL (5MG) 5 MG TABLET GT SCH ×2 (09:00→21:00)
[2018-12-18] MEDS: FUROSEMIDE 40 MG TABLET GT SCH (09:00)
[2018-12-18] MEDS: CARVEDILOL 3.125 MG TABLET GT SCH ×2 (09:00→21:00)
[2018-12-18] MEDS: TWOCAL HN 1,000 ML LIQUID GT PRN (12:50)
[2018-12-18 16:16] VITALS: BP 110/68
[2018-12-18 19:30] VITALS: BP 114/72
[2018-12-18] MEDS: MULTIVIT W/MINERALS 1 TAB TABLET GT SCH (21:00)
[2018-12-18 22:00] VITALS: BP 110/68
[2018-12-18] MEDS: LANOLIN/MIN OIL/PETROLAT,WHT 3.5 GM TUBE EACHEYE SCH (22:33)
[2018-12-19] MEDS: IPRATROPIUM NEB FS 0.5 MG/2.5 ML AMPUL.NEB NEB SCH ×4 (01:51→19:37)
[2018-12-19] MEDS: BACLOFEN (10 MG) 10 MG TABLET GT SCH ×2 (05:47→17:49)
[2018-12-19] MEDS: OMEPRAZOLE 20 MG CAPSULE.DR GT SCH (05:47)
[2018-12-19] MEDS: NYSTATIN TOP POWDER 15 GM BOTTLE TP SCH ×6 (09:00→21:33)
[2018-12-19] MEDS: Z GUARD REMEDY 4 OZ OINT TP SCH ×2 (09:00→21:33)
[2018-12-19] MEDS: CARVEDILOL 3.125 MG TABLET GT SCH ×2 (09:56→21:29)
[2018-12-19] MEDS: FERROUS SULFATE - FOR SA ONLY 330 MG/7.5 ML UDC GT SCH ×2 (09:56→17:49)
[2018-12-19] MEDS: ACIDOPHILUS/BULGARICUS 1 EACH TAB.CHEW GT SCH ×2 (09:57→17:49)
[2018-12-19] MEDS: MIDODRINE HCL (5MG) 5 MG TABLET GT SCH ×2 (09:57→21:00)
[2018-12-19] MEDS: POLYVINYL ALCOHOL 15 ML BOTTLE OP SCH ×4 (09:57→21:33)
[2018-12-19] MEDS: SIMETHICONE SUSP 40 MG/0.6 ML BOTTLE GT SCH ×2 (09:57→21:30)
[2018-12-19] MEDS: FUROSEMIDE 40 MG TABLET GT SCH (09:57)
[2018-12-19] MEDS: HYDROGEN PEROXIDE 480 ML BOTTLE TP SCH ×2 (12:14→21:33)
[2018-12-19 12:16] VITALS: BP 116/65
[2018-12-19 12:53] VITALS: BP 116/65
[2018-12-19] MEDS: TWOCAL HN 1,000 ML LIQUID GT PRN (16:11)
[2018-12-19] MEDS ORDERED: DIATR MEGLU/DIATRIZOATE SODIUM 30 ML BOTTLE (GASTROGRAPHIN) ONE (19:11)
[2018-12-19 19:44] VITALS: BP 125/58
[2018-12-19] MEDS: LANOLIN/MIN OIL/PETROLAT,WHT 3.5 GM TUBE EACHEYE SCH (21:33)
[2018-12-19] MEDS: MULTIVIT W/MINERALS 1 TAB TABLET GT SCH (21:33)
[2018-12-19 22:00] VITALS: BP 125/58
[2018-12-20] MEDS: IPRATROPIUM NEB FS 0.5 MG/2.5 ML AMPUL.NEB NEB SCH ×4 (01:14→19:36)
[2018-12-20] MEDS: BACLOFEN (10 MG) 10 MG TABLET GT SCH ×2 (05:45→17:51)
[2018-12-20] MEDS: OMEPRAZOLE 20 MG CAPSULE.DR GT SCH (05:46)
[2018-12-20 07:49] VITALS: BP 101/64
[2018-12-20] MEDS: Z GUARD REMEDY 4 OZ OINT TP SCH ×2 (09:00→21:17)
[2018-12-20] MEDS: NYSTATIN TOP POWDER 15 GM BOTTLE TP SCH ×6 (09:00→21:17)
[2018-12-20] MEDS: HYDROGEN PEROXIDE 480 ML BOTTLE TP SCH ×2 (09:22→21:00)
[2018-12-20] MEDS: MIDODRINE HCL (5MG) 5 MG TABLET GT SCH ×2 (09:44→21:16)
[2018-12-20] MEDS: CARVEDILOL 3.125 MG TABLET GT SCH ×2 (09:44→21:16)
[2018-12-20] MEDS: FUROSEMIDE 40 MG TABLET GT SCH (09:44)
[2018-12-20] MEDS: SIMETHICONE SUSP 40 MG/0.6 ML BOTTLE GT SCH ×2 (09:44→21:16)
[2018-12-20] MEDS: ACIDOPHILUS/BULGARICUS 1 EACH TAB.CHEW GT SCH ×2 (09:44→17:51)
[2018-12-20] MEDS: FERROUS SULFATE - FOR SA ONLY 330 MG/7.5 ML UDC GT SCH ×2 (09:44→17:51)
[2018-12-20] MEDS: POLYVINYL ALCOHOL 15 ML BOTTLE OP SCH ×4 (09:44→21:17)
[2018-12-20 10:00] VITALS: BP 115/60
[2018-12-20 20:34] VITALS: BP 112/63
[2018-12-20] MEDS: LANOLIN/MIN OIL/PETROLAT,WHT 3.5 GM TUBE EACHEYE SCH (21:18)
[2018-12-20] MEDS: MULTIVIT W/MINERALS 1 TAB TABLET GT SCH (21:28)
[2018-12-20 22:32] VITALS: BP 112/63
[2018-12-20] MEDS: TWOCAL HN 1,000 ML LIQUID GT PRN (22:56)
[2018-12-21] MEDS: IPRATROPIUM NEB FS 0.5 MG/2.5 ML AMPUL.NEB NEB SCH ×4 (02:11→20:29)
[2018-12-21] MEDS: OMEPRAZOLE 20 MG CAPSULE.DR GT SCH (05:54)
[2018-12-21] MEDS: BACLOFEN (10 MG) 10 MG TABLET GT SCH ×2 (05:54→17:17)
[2018-12-21 07:29] VITALS: BP 115/73
[2018-12-21] MEDS: SIMETHICONE SUSP 40 MG/0.6 ML BOTTLE GT SCH ×2 (08:57→21:38)
[2018-12-21] MEDS: CARVEDILOL 3.125 MG TABLET GT SCH ×2 (08:57→21:38)
[2018-12-21] MEDS: MIDODRINE HCL (5MG) 5 MG TABLET GT SCH ×2 (08:57→21:38)
[2018-12-21] MEDS: FUROSEMIDE 40 MG TABLET GT SCH (08:57)
[2018-12-21] MEDS: POLYVINYL ALCOHOL 15 ML BOTTLE OP SCH ×4 (08:57→21:38)
[2018-12-21] MEDS: ACIDOPHILUS/BULGARICUS 1 EACH TAB.CHEW GT SCH ×2 (08:57→17:17)
[2018-12-21] MEDS: FERROUS SULFATE - FOR SA ONLY 330 MG/7.5 ML UDC GT SCH ×2 (08:57→17:17)
[2018-12-21] MEDS: Z GUARD REMEDY 4 OZ OINT TP SCH ×2 (09:00→21:38)
[2018-12-21] MEDS: NYSTATIN TOP POWDER 15 GM BOTTLE TP SCH ×6 (09:00→21:38)
[2018-12-21] MEDS: HYDROGEN PEROXIDE 480 ML BOTTLE TP SCH ×2 (09:00→21:00)
[2018-12-21 11:00] VITALS: BP 120/70
[2018-12-21 19:42] VITALS: BP 111/72
[2018-12-21] MEDS: MULTIVIT W/MINERALS 1 TAB TABLET GT SCH (21:38)
[2018-12-21] MEDS: LANOLIN/MIN OIL/PETROLAT,WHT 3.5 GM TUBE EACHEYE SCH (21:39)
[2018-12-21 22:55] VITALS: BP 116/66
[2018-12-22] MEDS: IPRATROPIUM NEB FS 0.5 MG/2.5 ML AMPUL.NEB NEB SCH ×4 (01:56→19:58)
[2018-12-22] MEDS: BACLOFEN (10 MG) 10 MG TABLET GT SCH ×2 (05:49→17:41)
[2018-12-22] MEDS: OMEPRAZOLE 20 MG CAPSULE.DR GT SCH (05:49)
[2018-12-22 07:31] VITALS: BP 107/48
[2018-12-22] MEDS: Z GUARD REMEDY 4 OZ OINT TP SCH ×2 (09:00→21:20)
[2018-12-22] MEDS: NYSTATIN TOP POWDER 15 GM BOTTLE TP SCH ×5 (09:00→21:20)
[2018-12-22] MEDS: ACIDOPHILUS/BULGARICUS 1 EACH TAB.CHEW GT SCH ×2 (09:47→17:41)
[2018-12-22] MEDS: MIDODRINE HCL (5MG) 5 MG TABLET GT SCH ×2 (09:47→21:19)
[2018-12-22] MEDS: FERROUS SULFATE - FOR SA ONLY 330 MG/7.5 ML UDC GT SCH ×2 (09:47→17:41)
[2018-12-22] MEDS: POLYVINYL ALCOHOL 15 ML BOTTLE OP SCH ×4 (09:47→21:19)
[2018-12-22] MEDS: HYDROGEN PEROXIDE 480 ML BOTTLE TP SCH ×2 (09:47→21:20)
[2018-12-22] MEDS: SIMETHICONE SUSP 40 MG/0.6 ML BOTTLE GT SCH ×2 (09:47→21:19)
[2018-12-22] MEDS: FUROSEMIDE 40 MG TABLET GT SCH (09:47)
[2018-12-22] MEDS: CARVEDILOL 3.125 MG TABLET GT SCH ×2 (09:47→21:19)
[2018-12-22 10:00] VITALS: BP 110/60
[2018-12-22 19:47] VITALS: BP 119/82
[2018-12-22] MEDS: MULTIVIT W/MINERALS 1 TAB TABLET GT SCH (21:19)
[2018-12-22] MEDS: LANOLIN/MIN OIL/PETROLAT,WHT 3.5 GM TUBE EACHEYE SCH (21:20)
[2018-12-22 22:00] VITALS: BP 110/62
[2018-12-23] MEDS: IPRATROPIUM NEB FS 0.5 MG/2.5 ML AMPUL.NEB NEB SCH ×4 (01:16→20:14)
[2018-12-23] MEDS: LORAZEPAM 0.5 MG TABLET GT PRN (04:13)
[2018-12-23] MEDS: BACLOFEN (10 MG) 10 MG TABLET GT SCH ×2 (05:24→17:10)
[2018-12-23] MEDS: OMEPRAZOLE 20 MG CAPSULE.DR GT SCH (05:24)
[2018-12-23] MEDS: TWOCAL HN 1,000 ML LIQUID GT PRN (06:40)
[2018-12-23 07:36] VITALS: BP 96/53
[2018-12-23] MEDS: FERROUS SULFATE - FOR SA ONLY 330 MG/7.5 ML UDC GT SCH ×2 (08:00→17:09)
[2018-12-23] MEDS: CARVEDILOL 3.125 MG TABLET GT SCH ×2 (08:00→20:52)
[2018-12-23] MEDS: ACIDOPHILUS/BULGARICUS 1 EACH TAB.CHEW GT SCH ×2 (08:00→17:09)
[2018-12-23] MEDS: POLYVINYL ALCOHOL 15 ML BOTTLE OP SCH ×4 (08:01→20:52)
[2018-12-23] MEDS: MIDODRINE HCL (5MG) 5 MG TABLET GT SCH ×2 (08:01→20:52)
[2018-12-23] MEDS: SIMETHICONE SUSP 40 MG/0.6 ML BOTTLE GT SCH ×2 (08:01→20:52)
[2018-12-23] MEDS: FUROSEMIDE 40 MG TABLET GT SCH (08:01)
[2018-12-23] MEDS: Z GUARD REMEDY 4 OZ OINT TP SCH ×2 (08:02→20:52)
[2018-12-23] MEDS: HYDROGEN PEROXIDE 480 ML BOTTLE TP SCH ×2 (08:02→21:00)
[2018-12-23 10:00] VITALS: BP 96/53
[2018-12-23 19:52] VITALS: BP 105/70
[2018-12-23] MEDS: MULTIVIT W/MINERALS 1 TAB TABLET GT SCH (20:52)
[2018-12-23 22:00] VITALS: BP 115/69
[2018-12-23] MEDS: LANOLIN/MIN OIL/PETROLAT,WHT 3.5 GM TUBE EACHEYE SCH (22:40)
[2018-12-24] MEDS: IPRATROPIUM NEB FS 0.5 MG/2.5 ML AMPUL.NEB NEB SCH ×4 (01:00→19:41)
[2018-12-24] MEDS: BACLOFEN (10 MG) 10 MG TABLET GT SCH ×2 (06:29→17:28)
[2018-12-24] MEDS: OMEPRAZOLE 20 MG CAPSULE.DR GT SCH (06:29)
[2018-12-24] MEDS: TWOCAL HN 1,000 ML LIQUID GT PRN (06:54)
[2018-12-24 07:34] VITALS: BP 112/62
[2018-12-24] MEDS: CARVEDILOL 3.125 MG TABLET GT SCH ×2 (09:02→21:19)
[2018-12-24] MEDS: MIDODRINE HCL (5MG) 5 MG TABLET GT SCH ×2 (09:03→21:28)
[2018-12-24] MEDS: ACIDOPHILUS/BULGARICUS 1 EACH TAB.CHEW GT SCH ×2 (09:03→17:28)
[2018-12-24] MEDS: SIMETHICONE SUSP 40 MG/0.6 ML BOTTLE GT SCH ×2 (09:03→21:21)
[2018-12-24] MEDS: FERROUS SULFATE - FOR SA ONLY 330 MG/7.5 ML UDC GT SCH ×2 (09:03→17:28)
[2018-12-24] MEDS: FUROSEMIDE 40 MG TABLET GT SCH (09:03)
[2018-12-24] MEDS: Z GUARD REMEDY 4 OZ OINT TP SCH ×2 (09:03→21:25)
[2018-12-24] MEDS: POLYVINYL ALCOHOL 15 ML BOTTLE OP SCH ×4 (09:03→21:25)
[2018-12-24] MEDS: HYDROGEN PEROXIDE 480 ML BOTTLE TP SCH ×2 (09:10→21:25)
[2018-12-24] MEDS: LORAZEPAM INJ 2 MG/ML VIAL IVP PRN (09:50)
[2018-12-24 10:00] VITALS: BP 100/54
[2018-12-24 19:35] VITALS: BP 106/71
[2018-12-24] MEDS: MULTIVIT W/MINERALS 1 TAB TABLET GT SCH (21:24)
[2018-12-24] MEDS: LANOLIN/MIN OIL/PETROLAT,WHT 3.5 GM TUBE EACHEYE SCH (21:27)
[2018-12-24 22:00] VITALS: BP 106/71
[2018-12-25] MEDS: IPRATROPIUM NEB FS 0.5 MG/2.5 ML AMPUL.NEB NEB SCH ×4 (01:30→19:30)
[2018-12-25] MEDS: BACLOFEN (10 MG) 10 MG TABLET GT SCH ×2 (05:31→17:15)
[2018-12-25] MEDS: OMEPRAZOLE 20 MG CAPSULE.DR GT SCH (05:32)
[2018-12-25 07:49] VITALS: BP 135/87
[2018-12-25] MEDS: FERROUS SULFATE - FOR SA ONLY 330 MG/7.5 ML UDC GT SCH ×2 (08:34→17:15)
[2018-12-25] MEDS: ACIDOPHILUS/BULGARICUS 1 EACH TAB.CHEW GT SCH ×2 (08:34→17:15)
[2018-12-25] MEDS: FUROSEMIDE 40 MG TABLET GT SCH (08:41)
[2018-12-25] MEDS: SIMETHICONE SUSP 40 MG/0.6 ML BOTTLE GT SCH ×2 (08:42→20:29)
[2018-12-25] MEDS: MIDODRINE HCL (5MG) 5 MG TABLET GT SCH ×2 (08:43→20:30)
[2018-12-25] MEDS: Z GUARD REMEDY 4 OZ OINT TP SCH ×2 (08:44→20:32)
[2018-12-25] MEDS: POLYVINYL ALCOHOL 15 ML BOTTLE OP SCH ×4 (08:44→20:32)
[2018-12-25] MEDS: HYDROGEN PEROXIDE 480 ML BOTTLE TP SCH ×2 (08:44→23:48)
[2018-12-25] MEDS: CARVEDILOL 3.125 MG TABLET GT SCH ×2 (08:45→20:29)
[2018-12-25 10:00] VITALS: BP 135/87
[2018-12-25] MEDS: TWOCAL HN 1,000 ML LIQUID GT PRN (14:30)
[2018-12-25] MEDS: LACTULOSE 10 G/15 ML UDC (PYXIS) GT PRN (18:30)
[2018-12-25 19:28] VITALS: BP 129/90
[2018-12-25] MEDS: MULTIVIT W/MINERALS 1 TAB TABLET GT SCH (20:32)
[2018-12-25] MEDS: LANOLIN/MIN OIL/PETROLAT,WHT 3.5 GM TUBE EACHEYE SCH (21:11)
[2018-12-25 22:00] VITALS: BP 129/90
[2018-12-26] MEDS: IPRATROPIUM NEB FS 0.5 MG/2.5 ML AMPUL.NEB NEB SCH ×4 (02:13→19:36)
[2018-12-26] MEDS: BACLOFEN (10 MG) 10 MG TABLET GT SCH ×2 (06:03→17:39)
[2018-12-26] MEDS: OMEPRAZOLE 20 MG CAPSULE.DR GT SCH (06:03)
[2018-12-26 07:45] VITALS: BP 91/48
[2018-12-26] MEDS: FERROUS SULFATE - FOR SA ONLY 330 MG/7.5 ML UDC GT SCH ×2 (08:09→17:39)
[2018-12-26] MEDS: ACIDOPHILUS/BULGARICUS 1 EACH TAB.CHEW GT SCH ×2 (08:09→17:39)
[2018-12-26] MEDS: SIMETHICONE SUSP 40 MG/0.6 ML BOTTLE GT SCH ×2 (08:09→20:55)
[2018-12-26] MEDS: FUROSEMIDE 40 MG TABLET GT SCH (08:09)
[2018-12-26] MEDS: CARVEDILOL 3.125 MG TABLET GT SCH ×2 (08:09→20:55)
[2018-12-26] MEDS: POLYVINYL ALCOHOL 15 ML BOTTLE OP SCH ×4 (08:10→20:57)
[2018-12-26] MEDS: MIDODRINE HCL (5MG) 5 MG TABLET GT SCH ×2 (08:10→20:56)
[2018-12-26] MEDS: Z GUARD REMEDY 4 OZ OINT TP SCH (09:00)
[2018-12-26] MEDS: HYDROGEN PEROXIDE 480 ML BOTTLE TP SCH ×2 (09:00→20:57)
[2018-12-26 14:31] VITALS: BP 99/58
[2018-12-26] MEDS: TWOCAL HN 1,000 ML LIQUID GT PRN (17:48)
[2018-12-26 20:00] VITALS: BP 125/71
[2018-12-26] MEDS: MULTIVIT W/MINERALS 1 TAB TABLET GT SCH (20:56)
[2018-12-26] MEDS ORDERED: ZINC OXIDE 30 GM TUBE TP SCH (21:00)
[2018-12-26] MEDS: LANOLIN/MIN OIL/PETROLAT,WHT 3.5 GM TUBE EACHEYE SCH (21:15)
[2018-12-26 22:00] VITALS: BP 125/71
[2018-12-27] MEDS: IPRATROPIUM NEB FS 0.5 MG/2.5 ML AMPUL.NEB NEB SCH ×4 (01:37→20:02)
[2018-12-27] MEDS: OMEPRAZOLE 20 MG CAPSULE.DR GT SCH (05:56)
[2018-12-27] MEDS: BACLOFEN (10 MG) 10 MG TABLET GT SCH ×2 (05:56→17:01)
[2018-12-27 07:56] VITALS: BP 117/74
[2018-12-27] MEDS: FUROSEMIDE 40 MG TABLET GT SCH (08:39)
[2018-12-27] MEDS: FERROUS SULFATE - FOR SA ONLY 330 MG/7.5 ML UDC GT SCH ×2 (08:39→16:59)
[2018-12-27] MEDS: MIDODRINE HCL (5MG) 5 MG TABLET GT SCH ×2 (08:39→21:10)
[2018-12-27] MEDS: CARVEDILOL 3.125 MG TABLET GT SCH ×2 (08:39→21:10)
[2018-12-27] MEDS: ACIDOPHILUS/BULGARICUS 1 EACH TAB.CHEW GT SCH ×2 (08:39→16:59)
[2018-12-27] MEDS: SIMETHICONE SUSP 40 MG/0.6 ML BOTTLE GT SCH ×2 (08:39→21:10)
[2018-12-27] MEDS: POLYVINYL ALCOHOL 15 ML BOTTLE OP SCH ×4 (08:39→21:11)
[2018-12-27] MEDS: HYDROGEN PEROXIDE 480 ML BOTTLE TP SCH ×2 (09:00→21:00)
[2018-12-27 10:00] VITALS: BP 110/62
[2018-12-27 20:18] VITALS: BP_SYST 100; BP_SYST 92; BP_DIAS 38; BP_DIAS 54
[2018-12-27] MEDS ORDERED: ZINC OXIDE 30 GM TUBE TP SCH (21:00)
[2018-12-27] MEDS: MULTIVIT W/MINERALS 1 TAB TABLET GT SCH (21:10)
[2018-12-27] MEDS: LANOLIN/MIN OIL/PETROLAT,WHT 3.5 GM TUBE EACHEYE SCH (21:11)
[2018-12-27] MEDS: ZINC OXIDE 30 GM TUBE TP SCH (21:11)
[2018-12-27 22:37] VITALS: BP 102/54
[2018-12-28] MEDS: IPRATROPIUM NEB FS 0.5 MG/2.5 ML AMPUL.NEB NEB SCH ×2 (01:30→08:22)
[2018-12-28] MEDS: OMEPRAZOLE 20 MG CAPSULE.DR GT SCH (05:52)
[2018-12-28] MEDS: BACLOFEN (10 MG) 10 MG TABLET GT SCH (05:52)
[2018-12-28] MEDS: TWOCAL HN 1,000 ML LIQUID GT PRN (05:52)
[2018-12-28 07:44] VITALS: BP 127/85
[2018-12-28] MEDS: FERROUS SULFATE - FOR SA ONLY 330 MG/7.5 ML UDC GT SCH (08:09)
[2018-12-28] MEDS: CARVEDILOL 3.125 MG TABLET GT SCH (08:09)
[2018-12-28] MEDS: ACIDOPHILUS/BULGARICUS 1 EACH TAB.CHEW GT SCH (08:09)
[2018-12-28] MEDS: POLYVINYL ALCOHOL 15 ML BOTTLE OP SCH (08:10)
[2018-12-28] MEDS: MIDODRINE HCL (5MG) 5 MG TABLET GT SCH (08:10)
[2018-12-28] MEDS: SIMETHICONE SUSP 40 MG/0.6 ML BOTTLE GT SCH (08:10)
[2018-12-28] MEDS: FUROSEMIDE 40 MG TABLET GT SCH (08:10)
[2018-12-28] MEDS: LORAZEPAM 0.5 MG TABLET GT PRN (09:00)
[2018-12-28] MEDS: ZINC OXIDE 30 GM TUBE TP SCH (09:00)
[2018-12-28] MEDS: HYDROGEN PEROXIDE 480 ML BOTTLE TP SCH (09:03)
[2018-12-28 10:50] VITALS: BP 124/60
== END 2018-12-28 11:15 | DRG 130 ==
LOC: SA
PROVIDERS: ADMIT Internal Medicine; ATTEND Internal Medicine
PROC: 5A1955Z Respiratory Ventilation, Greater than 96 Consecutive Hours (ICD-10-PCS; principal; 2018-05-31)
PROC: 0DH63UZ Insertion of Feeding Device into Stomach, Percutaneous Approach (ICD-10-PCS; 2018-08-03)
DX: J96.11 Chronic respiratory failure with hypoxia (principal); G93.1 Anoxic brain damage, not elsewhere classified; G93.49 Other encephalopathy; I50.33 Acute on chronic diastolic (congestive) heart failure; J18.9 Pneumonia, unspecified organism; I82.409 Acute embolism and thrombosis of unspecified deep veins of unspecified lower extremity; D89.0 Polyclonal hypergammaglobulinemia; R40.3 Persistent vegetative state; Z99.11 Dependence on respirator [ventilator] status; Z93.0 Tracheostomy status; R13.10 Dysphagia, unspecified; Z93.1 Gastrostomy status; D64.9 Anemia, unspecified; F09 Unspecified mental disorder due to known physiological condition; G40.909 Epilepsy, unspecified, not intractable, without status epilepticus; I25.10 Atherosclerotic heart disease of native coronary artery without angina pectoris; B35.1 Tinea unguium; E66.01 Morbid (severe) obesity due to excess calories; E87.0 Hyperosmolality and hypernatremia; I95.89 Other hypotension; J96.12 Chronic respiratory failure with hypercapnia; L03.115 Cellulitis of right lower limb; Z93.3 Colostomy status; Z87.440 Personal history of urinary (tract) infections; H04.123 Dry eye syndrome of bilateral lacrimal glands; K29.70 Gastritis, unspecified, without bleeding; K29.80 Duodenitis without bleeding; K80.20 Calculus of gallbladder without cholecystitis without obstruction; R19.5 Other fecal abnormalities; R60.1 Generalized edema; R79.89 Other specified abnormal findings of blood chemistry; E83.52 Hypercalcemia; N39.0 Urinary tract infection, site not specified; H04.129 Dry eye syndrome of unspecified lacrimal gland; M85.9 Disorder of bone density and structure, unspecified
CPT/HCPCS: 31720; 36415; 36600; 71045-TC; 74018; 76700-TC; 80048-TC; 80053-TC; 80076-TC; 80202-TC; 81000-TC; 82272-TC; 82565-TC; 82728-TC; 82803-TC; 82962-TC; 82977-TC; 83516; 83540-TC; 83735-TC; 84100-TC; 84520-TC; 85025-TC; 85652-TC; 86580-TC; 86706; 86803; 87040-TC; 87086-TC; 87186-TC; 87340; 93971-TC; 94003-TC; 94760-TC; 94761-TC; 94762-TC; 94799-TC; 99082-TC; A4217; A4623; A6253; A7526; J0690; J0696; J2060; J2543; J2916; J3370; J3490; J7030; J7050; J7060; Q9963